=== PATIENT | female | born 1945 | race Caucasian/White ===

== ENCOUNTER 2019-09-09 10:46 | Inpatient (IN) | payer MEDICARE, MEDICAID, SELFPAY ==
[2019-09-09] VITALS (16 sets, daily range): BP systolic 80–128; BP diastolic 41–72; PULSE 66–93; RESP 13–21; TEMP 36.6–37.1; O2SAT 91–98; BMI 20.5
--- NOTE | 2019-09-09 11:29 | ED_ITS ---
Entered by Vane Purcell, acting as scribe for Gurpreet Palomino DO HPI - General Adult General: Chief complaint: General Medical Stated complaint: Low BP Time Seen by Provider: 09/09/19 11:21 Source: patient Mode of arrival: ambulatory Limitations: no limitations History of Present Illness: HPI narrative: 73 yo Female presents to ED with complaint of low blood pressure and dizziness. Pt states that she was taking medications for high blood pressure but they stopped the medication yesterday. Pt states that her boyfriend called the drug store and they told her to stop the medications. Pt denies any other complaints at this time. Pt is seen by Dr. Laith Patel in [place] for primary care. MD complaint: Low Blood Pressure Onset (ago): day(s) Radiation: non-radiation Relieving factors: none Exacerbating factors: medication and movement Associated symptoms: Deny chest pain, dyspnea, malaise, nausea, rash or vomiting Treatments prior to arrival: none Review of Systems Const: Denies: fever, chills, body aches, change in appetite, fatigue or malaise ENMT: Denies: throat pain, ear pain, nasal discharge or nasal congestion Card: Denies: chest pain, edema, shortness of breath on exertion or shortness of breath when lying down Resp: Denies: shortness of breath, productive cough or non-productive cough GI: Denies: abdominal pain, nausea, vomiting, vomiting blood, coffee grounds in vomit, diarrhea, constipation, bloating, blood in stool or black tarry stool : Denies: flank pain, difficulty urinating, painful urination, urinary frequency or urinary urgency Skin/Breast: Denies: rash or itching Neuro: Reports: dizziness PFSH ED PFSH: Surgical History (Updated 09/09/19 @ 15:48 by Carli Velazquez DO) History of 3 sections History of appendectomy History of hernia surgery Family History (Updated 09/09/19 @ 15:48 by Carli Velazquez DO) Father Stroke Social History (Updated 09/09/19 @ 15:48 by Carli Velazquez DO) Smoking and tobacco status: current every day smoker Alcohol intake: never Substance/Drug Use: never Physical Exam Const: COMMON NORMALS: no apparent distress GENERAL APPEARANCE: cooperative and comfortable ORIENTATION/CONSCIOUSNESS: Yes awake, Yes oriented to person, Yes oriented to place and Yes oriented to time HENMT: COMMON NORMALS: normocephalic, head/scalp atraumatic, hearing grossly normal bilaterally, external ears normal, EAC's normal, TM's normal bilaterally, nasal mucous membranes and turbinates normal, moist oral mucous membranes and oropharynx normal HEAD & SCALP: normocephalic and atraumatic NOSE: nasal mucous membranes and turbinates normal EXTERNAL EAR: Yes external ears normal EXTERNAL AUDITORY CANAL: EAC's normal TYMPANIC MEMBRANE: TM's normal bilaterally Eye: COMMON NORMALS: PERRL, EOMs intact bilaterally, conjunctivae normal and no scleral icterus CONJUNCTIVA: Yes conjunctivae normal PUPIL: Yes PERRL Neck/C-Spine: COMMON NORMALS: full ROM, no lymphadenopathy, supple and no JVD Lymph: LYMPHATIC: no lymphadenopathy noted and no lymphedema noted Resp: COMMON NORMALS: normal respiratory effort, no retractions, no use of accessory muscles and clear to auscultation bilaterally AUSCULTATION: clear to auscultation bilaterally Cardio: COMMON NORMALS: no JVD, regular rate, regular rhythm and no murmurs RATE: regular rate RHYTHM: regular rhythm GI: COMMON NORMALS: soft to palpation and no hepatosplenomegaly AUSCULTATION: Yes normoactive bowel sounds PALPATION: Yes soft, No tender, No guarding and Yes no hepatosplenomegaly Extremity: COMMON NORMALS: normal to inspection, normal capillary refill, no clubbing, cyanosis or edema, no calf tenderness and no pedal edema Neuro: SENSORIUM/ORIENTATION: Yes oriented to person, Yes oriented to place and Yes oriented to time Skin: COMMON NORMALS: no rashes or lesions noted GENERAL SKIN EXAM: no rashes or lesions noted Course Vital Signs: Vital signs: Vital Signs Temperature 98.4 F 09/13/19 08:00 Pulse Rate 78 09/13/19 08:18 Respiratory Rate 18 09/13/19 08:18 Blood Pressure 123/77 09/13/19 08:00 Pulse Oximetry 91 09/13/19 08:18 MDM - General Adult MDM Narrative: Medical decision making narrative: Reviewed findings with the patient. She is significantly anemic with acute renal failure and sepsis. Patient will be admitted Dr. Velazquez will be attending. Lab Data: Labs: Lab Results 03/23/20 03/23/20 03/23/20 Range/Units 11:05 11:05 11:05 WBC 26.4 H (4.0-10.0) 10^3/ uL RBC 2.73 L (4.1-5.3) 10^6/u L Hgb 8.9 L (11.5-15.3) g/dL Hct 27.9 L (37.0-47.0) % MCV 102.2 H (81-99) fL MCH 32.6 (28.0-34.0) pg MCHC 31.9 (30.0-36.0) g/dL RDW 13.5 (12.1-15.1) % Plt Count 295 (130-400) 10^3/c mm MPV 10.4 (7.4-10.4) fL Neut % (Auto) 87.2 % Lymph % (Auto) 3.0 % Shackelford % (Auto) 4.3 % Eos % (Auto) 0.1 % Baso % (Auto) 0.3 % Neut # (Auto) 23.1 H (1.8-7.7) 10^3/u L Lymph # (Auto) 0.8 (0.8-4.8) 10^3/u L Shackelford # (Auto) 1.1 H (0.2-0.9) 10^3/u L Eos # (Auto) 0.0 (0.0-0.8) 10^3/u L Baso # (Auto) 0.1 (0.0-0.1) 10^3/u L Nucleated RBC % (a uto) 0 % Nucleated RBCs # 0.0 /100WBC Sodium 126 L (136-145) mmol/L Potassium 5.4 H (3.5-5.1) mmol/L Chloride 91 L (98-107) mmol/L Carbon Dioxide 19 L (22-29) mmol/L Anion Gap 21.4 H (5-19) BUN 40 H (8-23) mg/dL Creatinine 4.2 H (0.5-0.9) mg/dL Glucose 115 (65-115) mg/dL Calculated Osmolal ity 261 L (285-295) mOsm/k g Lactate (0.5-2.2) mmol/L Calcium 8.8 (8.5-10.5) mg/dL Iron (37-145) ug/dL TIBC mcg/dl % Saturation (20-50) % Unsat Iron Binding (112-347) ug/dL Total Bilirubin 0.3 (0.15-1.2) mg/dL AST 20 (0-32) U/L ALT 11 (0-33) U/L Alkaline Phosphata se 151 H (35-105) IU/L Total Protein 7.1 (6.6-8.7) g/dL Albumin 3.5 (3.5-5.2) g/dL Globulin 3.6 (1.3-4.6) g/dL TSH (0.27-4.20) uIU/ mL Urine Color (Yellow) Urine Appearance (CLEAR) Urine pH (5-7) Ur Specific Gravit y (1.005-1.030) Urine Protein (Negative) Urine Glucose (UA) (Normal) Urine Ketones (Negative) Urine Blood (Negative) Urine Nitrate (Negative) Urine Bilirubin (NEGATIVE) Urine Urobilinogen (Negative) mg/dL Ur Leukocyte Uma ase (Negative) Urine RBC (0-2) /hpf Urine WBC (0-5) /hpf Ur Squamous Epith Cells (0-5) Urine Bacteria (NONE) Hyaline Casts Urine Mucus Digoxin 1.6 H (0.6-1.2) ng/mL Influenza Type A A g (Negative) POC Influenza B Ag (Negative) 09/09/19 09/09/19 09/09/19 Range/Units 11:05 11:06 11:55 WBC (4.0-10.0) 10^3/ uL RBC (4.1-5.3) 10^6/u L Hgb (11.5-15.3) g/dL Hct (37.0-47.0) % MCV (81-99) fL MCH (28.0-34.0) pg MCHC (30.0-36.0) g/dL RDW (12.1-15.1) % Plt Count (130-400) 10^3/c mm MPV (7.4-10.4) fL Neut % (Auto) % Lymph % (Auto) % Shackelford % (Auto) % Eos % (Auto) % Baso % (Auto) % Neut # (Auto) (1.8-7.7) 10^3/u L Lymph # (Auto) (0.8-4.8) 10^3/u L Shackelford # (Auto) (0.2-0.9) 10^3/u L Eos # (Auto) (0.0-0.8) 10^3/u L Baso # (Auto) (0.0-0.1) 10^3/u L Nucleated RBC % (a uto) % Nucleated RBCs # /100WBC Sodium (136-145) mmol/L Potassium (3.5-5.1) mmol/L Chloride (98-107) mmol/L Carbon Dioxide (22-29) mmol/L Anion Gap (5-19) BUN (8-23) mg/dL Creatinine (0.5-0.9) mg/dL Glucose (65-115) mg/dL Calculated Osmolal ity (285-295) mOsm/k g Lactate (0.5-2.2) mmol/L Calcium (8.5-10.5) mg/dL Iron 11 L (37-145) ug/dL TIBC 194 mcg/dl % Saturation 5.6 L (20-50) % Unsat Iron Binding 183 (112-347) ug/dL Total Bilirubin (0.15-1.2) mg/dL AST (0-32) U/L ALT (0-33) U/L Alkaline Phosphata se (35-105) IU/L Total Protein (6.6-8.7) g/dL Albumin (3.5-5.2) g/dL Globulin (1.3-4.6) g/dL TSH 0.68 (0.27-4.20) uIU/ mL Urine Color Yellow (Yellow) Urine Appearance Cloudy (CLEAR) Urine pH 5 (5-7) Ur Specific Gravit y 1.010 (1.005-1.030) Urine Protein 1+ H (Negative) Urine Glucose (UA) Norm (Normal) Urine Ketones Negative (Negative) Urine Blood 2+ H (Negative) Urine Nitrate Negative (Negative) Urine Bilirubin 1+ H (NEGATIVE) Urine Urobilinogen 1 H (Negative) mg/dL Ur Leukocyte Uma ase 2+ H (Negative) Urine RBC 0-4 H (0-2) /hpf Urine WBC >100 H (0-5) /hpf Ur Squamous Epith Cells 15-25 H (0-5) Urine Bacteria 2+ H (NONE) Hyaline Casts 0-4 H Urine Mucus Trace Digoxin (0.6-1.2) ng/mL Influenza Type A A g (Negative) POC Influenza B Ag (Negative) 09/09/19 09/09/19 Range/Units 13:14 13:17 WBC (4.0-10.0) 10^3/ uL RBC (4.1-5.3) 10^6/u L Hgb (11.5-15.3) g/dL Hct (37.0-47.0) % MCV (81-99) fL MCH (28.0-34.0) pg MCHC (30.0-36.0) g/dL RDW (12.1-15.1) % Plt Count (130-400) 10^3/c mm MPV (7.4-10.4) fL Neut % (Auto) % Lymph % (Auto) % Shackelford % (Auto) % Eos % (Auto) % Baso % (Auto) % Neut # (Auto) (1.8-7.7) 10^3/u L Lymph # (Auto) (0.8-4.8) 10^3/u L [place]elford # (Auto) (0.2-0.9) 10^3/u L Eos # (Auto) (0.0-0.8) 10^3/u L Baso # (Auto) (0.0-0.1) 10^3/u L Nucleated RBC % (a uto) % Nucleated RBCs # /100WBC Sodium (136-145) mmol/L Potassium (3.5-5.1) mmol/L Chloride (98-107) mmol/L Carbon Dioxide (22-29) mmol/L Anion Gap (5-19) BUN (8-23) mg/dL Creatinine (0.5-0.9) mg/dL Glucose (65-115) mg/dL Calculated Osmolal ity (285-295) mOsm/k g Lactate 1.4 (0.5-2.2) mmol/L Calcium (8.5-10.5) mg/dL Iron (37-145) ug/dL TIBC mcg/dl % Saturation (20-50) % Unsat Iron Binding (112-347) ug/dL Total Bilirubin (0.15-1.2) mg/dL AST (0-32) U/L ALT (0-33) U/L Alkaline Phosphata se (35-105) IU/L Total Protein (6.6-8.7) g/dL Albumin (3.5-5.2) g/dL Globulin (1.3-4.6) g/dL TSH (0.27-4.20) uIU/ mL Urine Color (Yellow) Urine Appearance (CLEAR) Urine pH (5-7) Ur Specific Gravit y (1.005-1.030) Urine Protein (Negative) Urine Glucose (UA) (Normal) Urine Ketones (Negative) Urine Blood (Negative) Urine Nitrate (Negative) Urine Bilirubin (NEGATIVE) Urine Urobilinogen (Negative) mg/dL Ur Leukocyte Uma ase (Negative) Urine RBC (0-2) /hpf Urine WBC (0-5) /hpf Ur Squamous Epith Cells (0-5) Urine Bacteria (NONE) Hyaline Casts Urine Mucus Digoxin (0.6-1.2) ng/mL Influenza Type A A g Negative (Negative) POC Influenza B Ag Negative (Negative) Imaging Data^: CXR: Radiologist's impression: [place] [id number] XRay Report Signed Patient: Maile López #: [id number] : 1946Acct#:[id number] Age/Sex: 73 / FADM Date: 09/09/19 [facility] Attending Dr: Ordering Provider/Ordering MD: Gurpreet Palomino DO Date of Service: 09/09/19 Procedure(s): XR chest 1V portable [id number] Accession Number(s): [id number] Report Number: [id number] WS: [id number] CHEST XRAY TECHNIQUE: Portable chest. CLINICAL INFORMATION: dyspnea/cough COMPARISON: August 03, 2013 FINDINGS: Heart: Normal cardiac silhouette. Lungs: Moderate chronic emphysematous changes. No acute pulmonary infiltrates. No focal pneumonia. Bones: Normal visualized bony structures. XR/XR chest 1V portable [id number] IMPRESSION: No acute chest findings Dictated By:Enrique Harris MD Signed By:Enrique Harrisigned Date/Time:09/09/19 1151 DD/ 1150 Discharge Plan Discharge Patient Disposition: Admitted As Inpatient Admit Provider: Carli Velazquez Clinical Impression: Cystitis, Sepsis, Acute renal failure (ARF), Anemia Condition: Stable Referrals: Laith Patel DO [Primary Care Provider] - Discharge Date/Time: 09/09/19 17:10 Coding Level of Care Code ED Stile Ripsaw Operator for Chg Fwd Exam Comprehensive The documentation recorded by the Binh thomas Carmen, accurately reflects the service I personally performed and the decisions made by Candelario johnson Curtis L, DO Sep 09, 2019 10:46
--- NOTE | 2019-09-09 11:34 | ECG_ITS ---
Measurements Intervals [place] Rate: 77 P: 60 ME: 158 QRS: 25 QRSD: 82 T: 34 QT: 371 QTc: 420 Normal sinus rhythm POSSIBLE RIGHT VENTRICULAR CONDUCTION DELAY [RSR (QR) IN V1/V2] No previous ECG available for comparison Electronically Signed On 09-09-2019 19:24:03 CDT by Adria Mcdonald M.D. [email or web address]
--- NOTE | 2019-09-09 11:34 | XR_ITS ---
WS: [id number] CHEST XRAY TECHNIQUE: Portable chest. CLINICAL INFORMATION: dyspnea/cough COMPARISON: August 03, 2013 FINDINGS: Heart: Normal cardiac silhouette. Lungs: Moderate chronic emphysematous changes. No acute pulmonary infiltrates. No focal pneumonia. Bones: Normal visualized bony structures. XR/XR chest 1V portable [id number] IMPRESSION: No acute chest findings
[2019-09-09] MEDS: sodium chloride 0.9% 1,000 ML 999 ML IV (11:43)
[2019-09-09 11:46] LABS: Basophils # 0.1 10^3/uL (0.0-0.1); Basophils % 0.3 %; Eosinophils % 0.1 %; Hematocrit 27.9 % (37.0-47.0); Hemoglobin 8.9 g/dL (11.5-15.3); Lymphocytes # 0.8 10^3/uL (0.8-4.8); Mean Corpuscular HGB Conc 31.9 g/dL (30.0-36.0); Mean Corpuscular Hemoglobin 32.6 pg (28.0-34.0); Mean Corpuscular Volume 102.2 fL (81-99); Mean Platelet Volume 10.4 fL (7.4-10.4); Monocytes # 1.1 10^3/uL (0.2-0.9); Monocytes % 4.3 %; Neutrophils # 23.1 10^3/uL (1.8-7.7); Neutrophils % 87.2 %; Nucleated Red Blood Cells % 0 %; Platelet Count 295 10^3/cmm (130-400); Red Blood Count 2.73 10^6/uL (4.1-5.3); Red Cell Distribution Width 13.5 % (12.1-15.1); White Blood Count 26.4 10^3/uL (4.0-10.0)
[2019-09-09 12:05] LABS: Alanine Aminotransferase 11 U/L (0-33); Albumin Level 3.5 g/dL (3.5-5.2); Alkaline Phosphatase 151 IU/L (35-105); Anion Gap 21.4 (5-19); Aspartate Amino Transferase 20 U/L (0-32); Blood Urea Nitrogen 40 mg/dL (8-23); Calcium 8.8 mg/dL (8.5-10.5); Carbon Dioxide 19 mmol/L (22-29); Chloride 91 mmol/L (98-107); Globulin 3.6 g/dL (1.3-4.6); Glucose 115 mg/dL (65-115); Osmolality Calculated 261 mOsm/kg (285-295); Potassium 5.4 mmol/L (3.5-5.1); Sodium 126 mmol/L (136-145); Total Bilirubin 0.3 mg/dL (0.15-1.2); Total Protein 7.1 g/dL (6.6-8.7)
[2019-09-09 12:26] LABS: Slide Review Slide Review Perform
[2019-09-09 12:44] LABS: Add Urine Microscopic? YES; Bilirubin Urine 1+ (NEGATIVE); Blood Urine 2+ (Negative); Glucose Urine UA Norm (Normal); Ketones Urine Negative (Negative); Leukocyte Esterase Urine 2+ (Negative); Nitrate Urine Negative (Negative); Protein Urine 1+ (Negative); Urine Appearance Cloudy (CLEAR); Urine Color Yellow (Yellow); Urobilinogen Urine 1 mg/dL (Negative); pH Urine 5 (5-7)
[2019-09-09 12:48] LABS: RBC Urine 0-4 /hpf (0-2); WBC Urine >100 /hpf (0-5)
[2019-09-09 12:49] LABS: Bacteria Urine 2+
[2019-09-09 12:50] LABS: Add Urine Culture? No; Hyaline Casts Urine 0-4; Mucus Urine TRACE; Squamous Epithelial Cell Urine 15-25 (0-5)
[2019-09-09] MEDS: sodium chloride 0.9% 1,000 ML 125 ML IV ×3 (12:51→23:09)
[2019-09-09] MEDS: levofloxacin-dextrose 5 % 750 MG/150 ML PREMIX 75 MG IV (13:15)
--- NOTE | 2019-09-09 13:28 | CT_ITS ---
WS: [id number] CT ABDOMEN PELVIS TECHNIQUE: Noncontrast CT of the abdomen and pelvis with coronal and sagittal reformatted images. CLINICAL INFORMATION: abd pain COMPARISON: December 03, 2018 DLP: 527.[address] scans at [facility] use at least one of these dose optimization techniques: automat ed exposure control; mA and/or kV adjustment per patient size (includes targeted exams where dose is matched to clinical indication); or iterative reconstruction. FINDINGS: Cholelithiasis. No gallbladder wall thickening or pericholecystic fluid. Adrenal glands are normal. S mall esophageal hiatal hernia. No hydronephrosis. No ureteral dilatation. Sigmoid diverticulosis. No evidence of acute diverticulitis. Bibasilar atelectasis. Fibrosis in the lung bases. No evidence of small or large bowel obstruction. Notified Gurpreet Palomino DO at 09/09/2019 2:[address]/CT abdomen pelvis wo con [id number] IMPRESSION: 1. Cholelithiasis. No gallbladder wall thickening or pericholecystic fluid. 2. No hydronephrosis. No obstructing renal or ureteral calculi. 3. Normal caliber abdominal aorta. 4. Diverticulosis. No evidence of acute diverticulitis.
[2019-09-09 13:47] LABS: Lactate (Lactic Acid level) 1.4 mmol/L (0.5-2.2)
[2019-09-09 13:51] LABS: Influenza A by IFA Negative (Negative); Influenza B by IFA Negative (Negative)
[2019-09-09 14:24] LABS: Digoxin 1.6 ng/mL (0.6-1.2)
--- NOTE | 2019-09-09 15:41 | PM.HP ---
Providers/Chief Complaint Admitting Physician: Carli Velazquez DO Primary Care Provider: Laith Patel Chief Complaint: Low BP at night History of Present Illness Maile López is a 73 year old female who presented to the emergency department today after being told she had low blood pressure. She reports that she is on some blood pressure medication but denies any history of high blood pressure. She is on digoxin and her but cannot give me any history of her cardiac health problems. She stated that she smokes about a pack a day and does have COPD but she does not wear any home oxygen. She reported that her symptoms are lightheadedness and dizziness specifically when she stands up from a seated position. This quickly resolves. She reports that she has had some intermittent abdominal pain over the past couple of days. She reports some dark stools intermittently but denies any bright red blood per rectum. Patient reports that her primary care provider is in [facility], unable to provide a past medical history. No family members at bedside. Patient was seen and evaluated in the emergency department noted to have concern for urinary tract infection and hypotension and admitted for further evaluation and treatment. Patient did have Hemoccult positive stool in the ED. Review of Systems Const: Denies: fever or chills Eyes: Denies: change in vision ENMT: Denies: nasal congestion Card: Denies: chest pain, palpitations or edema Resp: Denies: shortness of breath, productive cough or coughing up blood GI: Reports: black tarry stool; Denies: abdominal pain, nausea, vomiting, diarrhea, constipation or blood in stool : Denies: painful urination or blood in urine Musc: Denies: extremity pain or muscle cramps Skin/Breast: Denies: rash or new lesion Neuro: Reports: dizziness; Denies: headache Psych: Denies: anxiety or depression Endo: Denies: excessive urination or hot flashes Misael/Lymph: Denies: easy bruising or easy bleeding Medications/Allergies Home Medications Medication Instructions Recorded Confirmed Last Taken Type amitriptyline 25 mg PO BEDTIME 09/09/19 09/09/19 09/08/19 History clopidogrel 75 mg PO DAILY 09/09/19 09/09/19 09/09/19 History digoxin 125 mcg PO DAILY 09/09/19 09/09/19 09/09/19 History ferrous sulfate 325 mg PO BID 09/09/19 09/09/19 09/09/19 History furosemide 20 mg PO DAILY 09/09/19 09/09/19 09/09/19 History isosorbide dinitrate 2.5 mg PO BID 09/09/19 09/09/19 09/08/19 History naproxen 500 mg PO BID 09/09/19 09/09/19 09/09/19 History nitroglycerin 0.4 mg SUBLINGUAL PRN PRN 09/09/19 09/09/19 Unknown History potassium chloride 20 meq PO TID 09/09/19 09/09/19 09/09/19 History primidone 50 mg PO BID 09/09/19 09/09/19 Unknown History ranitidine HCl 150 mg PO BID 09/09/19 09/09/19 09/09/19 History simvastatin 20 mg PO DAILY 09/09/19 09/09/19 09/08/19 History tizanidine 4 mg PO Q8H PRN 09/09/19 09/09/19 09/09/19 History trazodone 50 mg PO BEDTIME 09/09/19 09/09/19 09/08/19 History Allergies Allergy/AdvReac Type Severity Reaction Status Date / Time iodine Allergy Unknown Verified 09/09/19 11:02 Penicillins Allergy ALGY-Anaphy Verified 09/09/19 11:02 laxis PFSH Acute PFSH: Surgical History (Updated 09/09/19 @ 15:48 by Carli Velazquez DO) History of 3 sections History of appendectomy History of hernia surgery Family History (Updated 09/09/19 @ 15:48 by Carli Velazquez DO) Father Stroke Social History (Updated 09/09/19 @ 15:48 by Carli Velazquez DO) Smoking and tobacco status: current every day smoker Alcohol intake: never Substance/Drug Use: never Vitals/I&O/Wt Last Vital Signs Temp 97.9 F 09/09/19 10:58 Pulse 69 09/09/19 14:50 Resp 16 09/09/19 14:50 BP 89/54 09/09/19 14:50 Pulse Ox 97 09/09/19 14:50 09/09/19 09/09/19 09/09/19 06:59 14:59 22:59 Intake Total 1000 / 1000 Balance 1000 / 1000 Weight last 48 hrs Weight 47.627 kg Physical Exam Const: COMMON NORMALS: oriented x3 and alert GENERAL APPEARANCE: cooperative ORIENTATION/CONSCIOUSNESS: Yes awake, Yes oriented to person, Yes oriented to place and Yes oriented to time HENMT: COMMON NORMALS: normocephalic and head/scalp atraumatic HEAD & SCALP: normocephalic and atraumatic Eye: COMMON NORMALS: PERRL PUPIL: Yes PERRL Neck/C-Spine: COMMON NORMALS: supple GENERAL: Yes normal visual inspection Resp: COMMON NORMALS: normal respiratory effort and clear to auscultation bilaterally EFFORT & INSPECTION: Yes able to speak in complete sentences AUSCULTATION: clear to auscultation bilaterally, no rhonchi and no wheezes Cardio: COMMON NORMALS: regular rate, regular rhythm and no murmurs RATE: regular rate RHYTHM: regular rhythm GI: COMMON NORMALS: soft to palpation and non-tender INSPECTION: No abdominal distension AUSCULTATION: Yes normoactive bowel sounds PALPATION: Yes soft Back/Pelvis: COMMON NORMALS: no CVA tenderness Extremity: COMMON NORMALS: no clubbing, cyanosis or edema and no calf tenderness Neuro: COMMON NORMALS: oriented x3, CN's II-XII intact bilaterally, moves all extremities and no focal motor deficits SENSORIUM/ORIENTATION: Yes alert, Yes oriented to person, Yes oriented to place and Yes oriented to time SPEECH: speech normal Psych: COMMON NORMALS: mental status grossly normal and cooperative Skin: COMMON NORMALS: no rashes or lesions noted GENERAL SKIN EXAM: no rashes or lesions noted Data : 09/09/19 11:05 09/09/19 11:05 Micro: Microbiology 09/09/19 13:14 Blood Culture - Preliminary Blood SPECIMEN COLLECTED 09/09/19 13:18 Blood Culture - Preliminary Blood SPECIMEN COLLECTED CT Abd/Pel: I personally reviewed and interpreted this imaging study as follows: Radiologist's impression: IMPRESSION: 1. Cholelithiasis. No gallbladder wall thickening or pericholecystic fluid. 2. No hydronephrosis. No obstructing renal or ureteral calculi. 3. Normal caliber abdominal aorta. 4. Diverticulosis. No evidence of acute diverticulitis. CXR: I personally reviewed and interpreted this imaging study as follows: Radiologist's impression: FINDINGS: Heart: Normal cardiac silhouette. Lungs: Moderate chronic emphysematous changes. No acute pulmonary infiltrates. No focal pneumonia. Bones: Normal visualized bony structures. XR/XR chest 1V portable [id number] IMPRESSION: No acute chest findings A&P Assessment and plan (1) Cystitis: Given Levaquin in the ER, will continue at this time Blood culture and urine culture ordered and pending Status: Acute Code(s): N30.90 - Cystitis, unspecified without hematuria (2) Sepsis: Leukocytosis and soft blood pressure. White blood cell count of 26,000 Continue with IV antibiotics Status: Acute Code(s): A41.9 - Sepsis, unspecified organism (3) Acute renal failure (ARF): Acute kidney injury with hyperkalemia Patient is on potassium 20 mEq 3 times a day, this is on hold Furosemide on hold Continue to hold any nephrotoxic agents CT scan of the abdomen and pelvis does not show any acute abnormalities Urinary tract infection with IV antibiotics for treatment as above Status: Acute Code(s): N17.9 - Acute kidney failure, unspecified (4) Anemia: Patient reported some dark stools, hold Plavix at this time Started on Protonix twice daily Serial H&H Patient with anemia and also increased white blood cell count, will order peripheral smear for further review Status: Acute Code(s): D64.9 - Anemia, unspecified Additional A&P Information Incidental finding of cholelithiasis: Recommend outpatient surgical follow-up Patient is on digoxin: Unable to give reason for this medication, will obtain records from outpatient setting Question of congestive heart failure: Obtaining records from outside facility, echocardiogram ordered for further evaluation Hyponatremia: Patient appears to be dehydrated, will continue with IV fluids DVT prophylaxis: SCDs, no pharmacologic prophylaxis due to concern for anemia Diet: Clear liquid CODE STATUS: Full code Attestations Medical Necessity Statement*: Requires hospitalization due to acute renal failure with hyperkalemia with acute cystitis and sepsis. Expected stay greater than 2 midnights Coding Level of Care Code Acute Musical Instrument Supervisor for Chg Fwd Diagnoses Cystitis N30.90 Sepsis A41.9 Acute renal failure (ARF) N17.9 Anemia D64.9
[2019-09-09 16:38] LABS: LAB Peripheral Smear Sent for Review
[2019-09-09] MEDS: calcium gluconate 0.1 gm/mL 10% SDV 10mL 1 GM IVP (17:50)
[2019-09-09] MEDS: pantoprazole 40 mg SDV IVP (17:52)
[2019-09-09] MEDS: ferrous sulfate EC 325 mg Tablet PO (17:52)
[2019-09-09 18:02] LABS: Thyroid Stimulating Hormone 0.68 uIU/mL (0.27-4.20)
[2019-09-09] MEDS: ondansetron 4 MG Tablet PO (18:19)
[2019-09-09 18:24] LABS: Iron 11 ug/dL (37-145); Percent Saturation 5.6 % (20-50); Total Iron Binding Capacity 194 mcg/dl; Unsaturated Iron Binding 183 ug/dL (112-347)
[2019-09-09 18:41] LABS: Hematocrit 32.7 % (37.0-47.0); Hemoglobin 9.8 g/dL (11.5-15.3)
[2019-09-09] MEDS: lactated ringers 1,000 ML 150 ML IV (19:47)
[2019-09-09] MEDS: acetaminophen 325 mg Tablet 650 MG PO (19:53)
[2019-09-09] MEDS: amitriptyline 25 mg Tablet PO (21:24)
[2019-09-09] MEDS: trazodone 50 mg Tablet PO (21:24)
--- NOTE | 2019-09-09 22:48 | PM.EVENT ---
Event Note Event Note: Called with question about patient's IV fluids. She had an order for lactated Ringer's as well as an order for normal saline. After review of the chart, both orders were placed at the exact same time by the same physician. I have discontinued the lactated Ringer's and continued change the normal saline for the time being.
[2019-09-09] MEDS: tizanidine 4 mg Tablet PO (23:26)
[2019-09-09 23:39] LABS: Hemoglobin 8.1 g/dL (11.5-15.3)
[2019-09-10] VITALS (7 sets, daily range): BP systolic 90–130; BP diastolic 53–70; PULSE 68–85; RESP 16–20; TEMP 36.6–36.9; O2SAT 86–99; BMI 20.5
[2019-09-10] MEDS: pantoprazole 40 mg SDV IVP ×2 (04:38→18:33)
[2019-09-10 05:36] LABS: Basophils % 0.1 %; Eosinophils # 0.1 10^3/uL (0.0-0.8); Eosinophils % 0.6 %; Hematocrit 24.7 % (37.0-47.0); Hemoglobin 7.9 g/dL (11.5-15.3); Lymphocytes # 0.7 10^3/uL (0.8-4.8); Lymphocytes % 4.4 %; Mean Corpuscular Hemoglobin 33.1 pg (28.0-34.0); Mean Corpuscular Volume 103.3 fL (81-99); Monocytes # 0.5 10^3/uL (0.2-0.9); Monocytes % 3.4 %; Neutrophils # 13.3 10^3/uL (1.8-7.7); Neutrophils % 89.2 %; Nucleated Red Blood Cells % 0 %; Platelet Count 199 10^3/cmm (130-400); Red Blood Count 2.39 10^6/uL (4.1-5.3); Red Cell Distribution Width 13.6 % (12.1-15.1); White Blood Count 14.9 10^3/uL (4.0-10.0)
[2019-09-10 05:56] LABS: Alanine Aminotransferase 10 U/L (0-33); Albumin Level 2.6 g/dL (3.5-5.2); Alkaline Phosphatase 146 IU/L (35-105); Anion Gap 21.5 (5-19); Aspartate Amino Transferase 19 U/L (0-32); Blood Urea Nitrogen 44 mg/dL (8-23); Calcium 8.3 mg/dL (8.5-10.5); Carbon Dioxide 14 mmol/L (22-29); Chloride 98 mmol/L (98-107); Globulin 3.3 g/dL (1.3-4.6); Glucose 78 mg/dL (65-115); Osmolality Calculated 263 mOsm/kg (285-295); Potassium 5.5 mmol/L (3.5-5.1); Sodium 128 mmol/L (136-145); Total Bilirubin 0.4 mg/dL (0.15-1.2); Total Protein 5.9 g/dL (6.6-8.7)
[2019-09-10 06:15] LABS: Slide Review Slide Review Perform
--- NOTE | 2019-09-10 07:00 | USCV_ITS ---
Maribel Maile Age: 73 Gender: F : 1945 Exam Date: 09/10/2019 14:50 Ordering Phys: Carli Velazquez DO Technologist: Earle Bradshaw Exam Location: [facility] [place] Indication: CHF BP: 121 / 69 HR: 75 Rhythm: Sinus Technical Quality: Good MEASUREMENTS (Male / Female) Normal Values 2D ECHO LV Diastolic Diameter PLAX 3.1 cm 4.2 - 5.9 / 3.9 - 5.3 cm LV Systolic Diameter PLAX 1.9 cm IVS Diastolic Thickness 1.1 cm 0.6 - 1.0 / 0.6 - 0.9 cm IVS Systolic Thickness 1.2 cm LVPW Diastolic Thickness 1.1 cm 0.6 - 1.0 / 0.6 - 0.9 cm LVPW Systolic Thickness 1.0 cm LVOT Diameter 2.0 cm LV Ejection Fraction 2D Teich 70.1 % LV Ejection Fraction MOD 2C 78.8 % LV Ejection Fraction 2C AL 79.4 % LA Diameter 3.5 cm LA Width 3.3 cm LA Height 3.9 cm RA Width 2.9 cm RA Height 4.3 cm M-MODE LV Diastolic Diameter MM 6.1 cm 4.2 - 5.9 / 3.9 - 5.3 cm LV Systolic Diameter MM 4.2 cm LV Ejection Fraction MM Teich 58.7 % IVS Diastolic Thickness MM 1.0 cm 0.6 - 1.0 / 0.6 - 0.9 cm IVS Systolic Thickness MM 1.6 cm LVPW Diastolic Thickness MM 1.0 cm 0.6 - 1.0 / 0.6 - 0.9 cm LVPW Systolic Thickness MM 1.6 cm RV Diastolic Diameter MM 1.7 cm Aortic Annulus Diameter 3.0 cm LA Ao Ratio MM 1.1 MV E Point Septal Separation 1.8 cm DOPPLER AV Peak Velocity 134.0 cm/s LVOT Peak Velocity 91.0 cm/s AV Area Cont Eq vti 2.5 cm squared AV Area Cont Eq pk 2.2 cm squared MV Area PHT 5.0 cm squared Mitral E to A Ratio 1.0 MV E' Velocity 11.0 cm/s Mitral E to MV E' Ratio 9.5 Mitral E to LV E' Lateral Ratio 8.9 Mitral E to LV E' Septal Ratio 10.2 TR Peak Velocity 304.0 cm/s TR Peak Gradient 37.0 mmHg TV Peak E Velocity 103.0 cm/s Right Atrial Pressure 3.0 mmHg Pulmonary Artery Systolic Pressu 40.0 mmHg FINDINGS Left Ventricle Normal left ventricular size and systolic function, EF 69 %. No regional wall motion abnormalities. Grade I/IV diastolic dysfunction (abnormal relaxation filling pattern), normal to mildly elevated filling pressures. Right Ventricle Mildly increased right ventricular size. Normal right ventricular systolic function. Right Atrium Mildly increased right atrial size. Left Atrium Normal left atrial size. Mitral Valve Thickened mitral valve. Mild mitral valve regurgitation. Aortic Valve Thickened aortic valve. Tricuspid Valve No gross abnormalities noted Pulmonic Valve Pulmonic valve not well visualized. Pericardium No pericardial effusion. Aorta Normal aortic annulus size. CONCLUSIONS Normal left ventricular size and systolic function, EF 69 %. No regional wall motion abnormalities. Grade I/IV diastolic dysfunction (abnormal relaxation filling pattern), normal to mildly elevated filling pressures. Mildly increased right ventricular size. Normal right ventricular systolic function. Mildly increased right atrial size. Thickened mitral valve. Mild mitral valve regurgitation. There is no pericardial effusion. There are no intracardiac masses. No previous study is available for comparison. Dr Adria Mcdonald MD FAC (Electronically Signed) Final Date: 10 September 2019 19:36 S
--- NOTE | 2019-09-10 07:52 | XR_ITS ---
WS: [id number] CHEST XRAY TECHNIQUE: Portable chest. CLINICAL INFORMATION: low oxygen, dyspnea COMPARISON: September 09, 2019 FINDINGS: Heart: Normal cardiac silhouette. Lungs: Chronic emphysematous changes. Slight hazy interstitial infiltrates in the lung bases appear n ew since yesterday. Correlation for pneumonitis. No focal consolidation. Bones: Mild thoracic curve. Osteopenia. XR/XR chest 1V portable [id number] IMPRESSION: 1. Slight hazy infiltrates in the right greater than the left lung base appear s new since yesterday. Recommend correlation for pneumonitis. No focal consolid ation. 2. Chronic emphysematous changes.
[2019-09-10] MEDS: ferrous sulfate EC 325 mg Tablet PO ×2 (08:30→18:33)
[2019-09-10] MEDS: atorvastatin 40 mg Tablet 20 MG PO (08:30)
--- NOTE | 2019-09-10 10:44 | PM.PN ---
Subjective Subjective: Interval history: Patient awake sitting up in bed at time of exam today. She reported some shortness of breath this morning which she reported as her usual shortness of breath that is now resolved, she denies any chest pain, no abdominal pain. Patient reported no further dark stools. Discussed with patient that obtained her records from her primary care provider which showed documentation of chronic kidney disease, she is unaware of this past diagnosis. Reported that she has been seen by nephrology clinic in the past but only one time and had no further follow-up. Patient reported that she was told she had a hernia, was never told anything about chronic kidney disease. On prior documentation from patient's outside provider it appears she has essential tremor, anemia, GERD, prior documentation of coronary artery disease, of which patient denies. Also noted to have chronic kidney disease and referral to nephrology was back in 2019. Vitals/I&O/Wt Last Vital Signs Temp 97.8 F 09/10/19 07:38 Pulse 71 09/10/19 08:02 Resp 20 H 09/10/19 08:02 BP 91/53 09/10/19 07:38 Pulse Ox 96 09/10/19 08:02 09/09/19 09/10/19 09/10/19 22:59 06:59 14:59 Intake Total 1747.917 / 2747.917 0 / 2747.917 1600 / 1600 Balance 1747.917 / 2747.917 0 / 2747.917 1600 / 1600 Weight last 48 hrs Weight 47.627 kg Weight 47.627 kg Physical Exam Const: COMMON NORMALS: oriented x3 and alert GENERAL APPEARANCE: cooperative ORIENTATION/CONSCIOUSNESS: Yes awake, Yes oriented to person, Yes oriented to place and Yes oriented to time HENMT: COMMON NORMALS: normocephalic and head/scalp atraumatic HEAD & SCALP: normocephalic and atraumatic Eye: COMMON NORMALS: PERRL PUPIL: Yes PERRL Neck/C-Spine: COMMON NORMALS: supple GENERAL: Yes normal visual inspection Resp: COMMON NORMALS: normal respiratory effort and clear to auscultation bilaterally EFFORT & INSPECTION: Yes able to speak in complete sentences AUSCULTATION: clear to auscultation bilaterally, no rhonchi and no wheezes Cardio: COMMON NORMALS: regular rate, regular rhythm and no murmurs RATE: regular rate RHYTHM: regular rhythm GI: COMMON NORMALS: soft to palpation and non-tender INSPECTION: No abdominal distension AUSCULTATION: Yes normoactive bowel sounds PALPATION: Yes soft : COMMON NORMALS: Yes no CVA tenderness BLADDER/KIDNEY EXAM: Yes no CVA tenderness Back/Pelvis: COMMON NORMALS: no CVA tenderness Extremity: COMMON NORMALS: no clubbing, cyanosis or edema and no calf tenderness Neuro: COMMON NORMALS: oriented x3, CN's II-XII intact bilaterally, moves all extremities and no focal motor deficits SENSORIUM/ORIENTATION: Yes alert, Yes oriented to person, Yes oriented to place and Yes oriented to time SPEECH: speech normal Psych: COMMON NORMALS: mental status grossly normal and cooperative Skin: COMMON NORMALS: no rashes or lesions noted GENERAL SKIN EXAM: no rashes or lesions noted Data : 09/10/19 05:24 09/10/19 05:24 Micro: Microbiology 09/09/19 13:18 Blood Culture - Preliminary Blood Gram Negative Rods 09/09/19 13:14 Blood Culture - Preliminary Blood Gram Negative Rods A&P Assessment and plan (1) Cystitis: Blood culture showing gram-negative rods Will broaden antibiotic coverage Status: Acute Code(s): N30.90 - Cystitis, unspecified without hematuria (2) Sepsis: Leukocytosis and soft blood pressure. White blood cell count of 26,000 Continue with IV antibiotics Status: Acute Code(s): A41.9 - Sepsis, unspecified organism (3) Acute renal failure (ARF): Acute kidney injury with hyperkalemia Patient is on potassium 20 mEq 3 times a day, this is on hold Furosemide on hold Continue to hold any nephrotoxic agents CT scan of the abdomen and pelvis does not show any acute abnormalities Urinary tract infection with IV antibiotics for treatment as above Status: Acute Code(s): N17.9 - Acute kidney failure, unspecified (4) Anemia: Patient reported some dark stools, hold Plavix at this time Started on Protonix twice daily Serial H&H Patient with anemia and also increased white blood cell count, will order peripheral smear for further review Status: Acute Code(s): D64.9 - Anemia, unspecified Additional A&P Information Incidental finding of cholelithiasis: Recommend outpatient surgical follow-up Patient is on digoxin: Unable to give reason for this medication, will obtain records from outpatient setting which showed history of CAD Question of congestive heart failure: Obtaining records from outside facility, echocardiogram pending Hyponatremia: Patient appears to be dehydrated, will continue with IV fluids Acute on chronic kidney injury: Unknown baseline creatinine, creatinine of 4.1 with a BUN of 44 and hyperkalemia. Patient has prior documentation from her primary care provider of chronic kidney disease, patient denies this history. We will continue to monitor closely. Patient's blood pressures have been low we will continue to hold off on nephrotoxic agents and hold on blood pressure medication at this time. Consider addition of Midrin and consider nephrology consultation if not improved DVT prophylaxis: SCDs, no pharmacologic prophylaxis due to concern for anemia Diet: Clear liquid CODE STATUS: Full code Attestations Medical Necessity Statement*: Patient requires further hospitalization due to bacteremia, urinary tract infection, acute on chronic kidney injury Coding Level of Care Code Acute Prevention Coordinator for Chg Fwd Diagnoses Cystitis N30.90 Sepsis A41.9 Acute renal failure (ARF) N17.9 Anemia D64.9
--- NOTE | 2019-09-10 10:50 | US_ITS ---
WS: [id number] Bilateral renal ultrasound, 09/10/2019 Clinical Data: CHRISTELLE on CKD Comparison: Renal ultrasound, 11/08/2018. Findings: The right kidney measures 9.4 cm x 4.8 cm x 4.5 cm and the left kidney is 10.4 cm x 5.4 cm x 5.2 cm. There are no cysts, masses or hydronephrosis. The renal cortical margin is normal. No renal calculi a re seen. The abdominal aorta and inferior vena cava show no vascular abnormalities. The bladder was scanned and was not remarkable. US/US renal BI* [id number] Impression: Negative bilateral renal ultrasound.
--- NOTE | 2019-09-10 11:44 | PC.CHAP ---
Pastoral Care Encounter/Spiritual Assessment Type of Contact [] Declined picker and packer visit [] Patient/Family/Request visit [] Outpatient visit [] Follow-up visit [] Physician referral [] Code/Alert [x] Routine visit [] Staff referral [] Actively dying [] Patient sleeping [] Family support [] [] Out of room [] Palliative care [] [x] Receiving care in room [] Pre-surgical visit [] Trauma [] Long length of stay [] ICU visit [] Other: Relational/Emotional Strength [x] Patient feels connected with others/family/visitors/staff [] Distress [] Loneliness/isolation [] Abandonment Spirituality of Patient [x] Person of Lizeth [] Attends Catholic of their Lizeth [x] Believes in Prayer [] Reads Bible or Congregation materials [] There are Spiritual issues to be addressed [employer] Interventions [x] Prayer [x] Active listening [x] Non-anxious presence [x] Spiritual/emotional support [] Crisis/trauma care [x] Spiritual counseling [] Bereavement support [] Provided bereavement packet [] Provided Bible/devotional materials [] Provided toy/stuffed animal, coloring book to patient or family member [] Provided Communion [] Anointing/[place] [] Salvation [x] Completed spiritual assessment [] Other: Impact on Illness or Injury [] Angry [] Fearful [] Anxious [] Often cries [] Exhaustion [] Unable to work [] Unable to attend shinto [] Unable to walk/stand [] Unable to read [] Unable to drive [] Unable to eat/drink [] Unable to sleep [] Unable to be with family [] Patient intubated [] Other: Summary Has a [place] infection, feeling better, not sure when she will to get to home, quite with a good attitude Time spent with patient 10 mins
[2019-09-10 11:54] LABS: Hematocrit 25.6 % (37.0-47.0); Hemoglobin 8.3 g/dL (11.5-15.3)
[2019-09-10] MEDS: calcium gluconate 0.1 gm/mL 10% SDV 10mL 1 GM IVP (12:08)
[2019-09-10] MEDS: dextrose 50% syringe 50 mL IVP (12:08)
[2019-09-10] MEDS: insulin regular-human 10 UNIT in SYRINGE 1 EACH IVP (12:09)
[2019-09-10] MEDS: sodium polystyrene sulfonate 15 gm/60 mL Btl PO (12:10)
[2019-09-10] MEDS: cefTRIAXone 1,000 MG in sodium chloride 0.9% (plus) 50 ML 100 MG IV (12:19)
[2019-09-10] MEDS: sodium chloride 0.9% 1,000 ML 30 ML IV (12:20)
[2019-09-10] MEDS: levofloxacin-dextrose 5 % 750 MG/150 ML PREMIX 150 MG IV (12:21)
[2019-09-10] MEDS: midodrine 5 mg TABLET PO ×2 (15:54→20:22)
[2019-09-10] MEDS: acetaminophen 325 mg Tablet 650 MG PO (18:33)
--- NOTE | 2019-09-10 19:13 | PC.NURSE ---
Introduction of staff and report received, aidet.
[2019-09-10] MEDS: trazodone 50 mg Tablet PO (20:22)
[2019-09-10] MEDS: amitriptyline 25 mg Tablet PO (20:22)
--- NOTE | 2019-09-10 20:22 | PC.NURSE ---
hs meds given at this time.
[2019-09-11] VITALS (9 sets, daily range): BP systolic 99–135; BP diastolic 57–70; PULSE 79–106; RESP 16–24; TEMP 36.4–36.9; O2SAT 90–97
[2019-09-11] MEDS: pantoprazole 40 mg SDV IVP ×2 (06:17→18:09)
[2019-09-11 06:40] LABS: Alanine Aminotransferase 11 U/L (0-33); Albumin Level 2.7 g/dL (3.5-5.2); Alkaline Phosphatase 194 IU/L (35-105); Anion Gap 22.6 (5-19); Aspartate Amino Transferase 23 U/L (0-32); Blood Urea Nitrogen 55 mg/dL (8-23); Calcium 8.3 mg/dL (8.5-10.5); Carbon Dioxide 13 mmol/L (22-29); Chloride 99 mmol/L (98-107); Globulin 2.3 g/dL (1.3-4.6); Glucose 53 mg/dL (65-115); Osmolality Calculated 266 mOsm/kg (285-295); Potassium 4.6 mmol/L (3.5-5.1); Sodium 130 mmol/L (136-145); Total Bilirubin 0.3 mg/dL (0.15-1.2)
[2019-09-11 07:40] LABS: Basophils # 0.1 10^3/uL (0.0-0.1); Basophils % 0.4 %; Eosinophils # 0.1 10^3/uL (0.0-0.8); Eosinophils % 0.3 %; Hematocrit 27.4 % (37.0-47.0); Hemoglobin 8.5 g/dL (11.5-15.3); Lymphocytes # 0.7 10^3/uL (0.8-4.8); Lymphocytes % 3.3 %; Mean Corpuscular Hemoglobin 32.6 pg (28.0-34.0); Mean Platelet Volume 10.5 fL (7.4-10.4); Monocytes # 0.9 10^3/uL (0.2-0.9); Monocytes % 4.1 %; Neutrophils # 20.3 10^3/uL (1.8-7.7); Neutrophils % 91.1 %; Nucleated Red Blood Cells % 0 %; Platelet Count 212 10^3/cmm (130-400); Red Blood Count 2.61 10^6/uL (4.1-5.3); Red Cell Distribution Width 14.2 % (12.1-15.1); White Blood Count 22.3 10^3/uL (4.0-10.0)
[2019-09-11] MEDS: atorvastatin 40 mg Tablet 20 MG PO (09:21)
[2019-09-11] MEDS: ferrous sulfate EC 325 mg Tablet PO ×2 (09:21→18:09)
[2019-09-11] MEDS: midodrine 5 mg TABLET PO (09:21)
--- NOTE | 2019-09-11 11:04 | PC.RESP ---
Patient given Pulmonary Rehab and Smoking Cessation information.
[2019-09-11] MEDS: cefTRIAXone 1,000 MG in sodium chloride 0.9% (plus) 50 ML 100 MG IV (11:21)
--- NOTE | 2019-09-11 14:06 | PM.CONSULT ---
Providers/Reason For Consult Consulting Physican/Specialty*: shaheed mcallister md Reason for Consult*: yina, hyponatremia, met acidosis. Attending Physician: Carli Velazquez DO Primary Care Provider: Laith Patel History of Present Illness History of Present Illness Maile López is a 73 year old female w/ CHF, ckd stage 3- b/l cr 1.3 in jul 2018, anxiety, hyperlipidemia, GERD, trmors. pt admitted w/ hypotension and septic shock. since dx w/ gram neg bacteremia. renal called for YINA w/ cr over 4. Review of Systems General: Reports: 10 or more systems reviewed and unremarkable except in HPI and below Narrative: weak, confused, poor appetite, lethargic, sob, abd pain, back pain, dysuria. Meds/Allergies Home Medications and Allergies Home Medications Medication Instructions Recorded Confirmed Type amitriptyline 25 mg PO BEDTIME 09/09/19 09/09/19 History clopidogrel 75 mg PO DAILY 09/09/19 09/09/19 History digoxin 125 mcg PO DAILY 09/09/19 09/09/19 History ferrous sulfate 325 mg PO BID 09/09/19 09/09/19 History furosemide 20 mg PO DAILY 09/09/19 09/09/19 History isosorbide dinitrate 2.5 mg PO BID 09/09/19 09/09/19 History naproxen 500 mg PO BID 09/09/19 09/09/19 History nitroglycerin 0.4 mg SUBLINGUAL PRN PRN 09/09/19 09/09/19 History potassium chloride 20 meq PO TID 09/09/19 09/09/19 History primidone 50 mg PO BID 09/09/19 09/09/19 History ranitidine HCl 150 mg PO BID 09/09/19 09/09/19 History simvastatin 20 mg PO DAILY 09/09/19 09/09/19 History tizanidine 4 mg PO Q8H PRN 09/09/19 09/09/19 History trazodone 50 mg PO BEDTIME 09/09/19 09/09/19 History Allergies Allergy/AdvReac Type Severity Reaction Status Date / Time iodine Allergy Unknown Verified 09/09/19 11:02 Penicillins Allergy ALGY-Anaphy Verified 09/09/19 11:02 laxis Current Medications Current Medications Generic Name Dose Route Start Last Admin Trade Name Freq PRN Reason Stop Dose Admin Acetaminophen 650 mg 09/09/19 17:25 09/10/19 18:33 Tylenol PO 650 mg Q6H PRN Administration Mild/Mod Pain Or Temp >/= 101 Amitriptyline HCl 25 mg 09/09/19 21:00 09/10/19 20:22 Elavil PO 25 mg BEDTIME DARWIN Administration Atorvastatin Calcium 20 mg 09/10/19 09:00 09/11/19 09:21 Lipitor PO 20 mg DAILY DARWIN Administration Ferrous Sulfate 325 mg 09/09/19 18:00 09/11/19 09:21 Ferrous Sulfate PO 325 mg BID DARWIN Administration Sodium Chloride 1,000 mls @ 30 mls/hr 09/10/19 11:00 09/10/19 12:20 Sodium Chloride 0.9% IV 30 mls/hr .Q24H DARWIN Administration Ceftriaxone Sodium 1,000 mg/ 50 mls @ 100 mls/hr 09/10/19 11:00 09/11/19 11:21 Sodium Chloride IV 100 mls/hr Q24H DARWIN Administration Protocol Non-Formulary Medication 2.5 mg 09/09/19 18:00 09/11/19 09:22 Isosorbide Dinitrate PO Not Given BID DARWIN Ondansetron HCl 4 mg 09/09/19 17:25 09/09/19 18:19 Zofran PO 4 mg Q8H PRN Administration NAUSEA Pantoprazole Sodium 40 mg 09/09/19 17:25 09/11/19 06:17 Protonix IVP 40 mg Q12H DARWIN Administration Tizanidine HCl 4 mg 09/09/19 15:31 09/09/19 23:26 Zanaflex PO 4 mg Q8H PRN Administration Spasms Trazodone HCl 50 mg 09/09/19 21:00 09/10/19 20:22 Desyrel PO 50 mg BEDTIME DARWIN Administration PFSH Acute PFSH: Surgical History (Updated 09/09/19 @ 15:48 by Carli Velazquez DO) History of 3 sections History of appendectomy History of hernia surgery Family History (Updated 09/09/19 @ 15:48 by Carli Velazquez DO) Father Stroke Social History (Updated 09/09/19 @ 15:48 by Carli Velazquez DO) Smoking and tobacco status: current every day smoker Alcohol intake: never Substance/Drug Use: never Vitals/I&O/Wt Last Vital Signs Temp 97.9 F 09/11/19 11:17 Pulse 94 09/11/19 11:17 Resp 18 09/11/19 11:17 BP 130/70 09/11/19 11:17 Pulse Ox 90 09/11/19 11:17 09/10/19 09/11/19 09/11/19 22:59 06:59 14:59 Intake Total 480 / 2610 120 / 2730 340 / 340 Output Total 400 / 400 Balance 480 / 2610 -280 / 2330 340 / 340 Weight last 48 hrs Weight 55.792 kg Weight 47.627 kg Physical Exam Narrative: EXAM NARRATIVE: vss, nard in bed Heent- nc/at, eomi, anicteric neck- supple, no jvp, no bruits heart reg no rub abd soft, nt, nd, +BS ext 1+ edema neuro- a,a, o x 1-2 Data Micro: Micro: Microbiology 09/10/19 11:31 Blood Culture - Pr eliminary Blood NEGATIVE TO PEGGY E 09/10/19 11:28 Blood Culture - Pr eliminary Blood NEGATIVE TO PEGGY E A&P Additional A&P Information 73 yr old female 1. gram neg ceasar bacteremia- abx as per hospitalist- dose for GFR of 15 2. mild CKD stage 3- b/l cr 1.3- likely age, 3. YINA- likely atn from hypotension and nsaid and on chf meds. -no obstruction on imaging -PT WAS ON DAILY NSAID'S FOR YEARS- CAN CAUSE MINIMAL CHANGE DISEASE - Check ck -monitor in and out and daily weights 3b/ check pth and phos 4. high MCV anemia- low iron sat -check ferritin -check b12, folate, spep, upep 5. normal echo- not sure why she was on CHF meds 6. hyponatremia- check tsh, vin -check ur na, osm, cr -she is a smoker and can have SIADH. monitor where na plateaus 7. non AGMa and inc AGMA from sepsis and renal failure -lactate okay -check abg 8. dig level was 1.6- cont to hold dig Consult Attestations Medical Necessity Statement: yina, anemia, gram neg bacteremia Time Spent in Patient Care: Greater than 35 minutes Coding Level of Care Code Acute Prior Authorization Technician for [employer]
--- NOTE | 2019-09-11 14:07 | PM.PN ---
Subjective Subjective: Interval history: Patient awake in bed at time of exam. She denies any chest pain or shortness of breath. Denies any abdominal pain. Reports no dysuria Vitals/I&O/Wt Last Vital Signs Temp 97.9 F 09/11/19 11:17 Pulse 94 09/11/19 11:17 Resp 18 09/11/19 11:17 BP 130/70 09/11/19 11:17 Pulse Ox 90 09/11/19 11:17 09/10/19 09/11/19 09/11/19 22:59 06:59 14:59 Intake Total 480 / 2610 120 / 2730 340 / 340 Output Total 400 / 400 Balance 480 / 2610 -280 / 2330 340 / 340 Weight last 48 hrs Weight 55.792 kg Weight 47.627 kg Physical Exam Const: COMMON NORMALS: oriented x3 and alert GENERAL APPEARANCE: cooperative ORIENTATION/CONSCIOUSNESS: Yes awake, Yes oriented to person, Yes oriented to place and Yes oriented to time HENMT: COMMON NORMALS: normocephalic and head/scalp atraumatic HEAD & SCALP: normocephalic and atraumatic Eye: COMMON NORMALS: PERRL PUPIL: Yes PERRL Neck/C-Spine: COMMON NORMALS: supple GENERAL: Yes normal visual inspection Resp: COMMON NORMALS: normal respiratory effort and clear to auscultation bilaterally EFFORT & INSPECTION: Yes able to speak in complete sentences AUSCULTATION: clear to auscultation bilaterally, no rhonchi and no wheezes Cardio: COMMON NORMALS: regular rate, regular rhythm and no murmurs RATE: regular rate RHYTHM: regular rhythm GI: COMMON NORMALS: soft to palpation and non-tender INSPECTION: No abdominal distension AUSCULTATION: Yes normoactive bowel sounds PALPATION: Yes soft Extremity: COMMON NORMALS: no clubbing, cyanosis or edema and no calf tenderness Neuro: COMMON NORMALS: oriented x3, CN's II-XII intact bilaterally, moves all extremities and no focal motor deficits SENSORIUM/ORIENTATION: Yes alert, Yes oriented to person, Yes oriented to place and Yes oriented to time SPEECH: speech normal Psych: COMMON NORMALS: mental status grossly normal and cooperative Skin: COMMON NORMALS: no rashes or lesions noted GENERAL SKIN EXAM: no rashes or lesions noted Data : 09/11/19 07:21 09/11/19 04:36 Micro: Microbiology 09/10/19 11:31 Blood Culture - Preliminary Blood NEGATIVE TO DATE 09/10/19 11:28 Blood Culture - Preliminary Blood NEGATIVE TO DATE A&P Assessment and plan (1) Cystitis: Transitioned to Rocephin, further culture results pending Status: Acute Code(s): N30.90 - Cystitis, unspecified without hematuria (2) Sepsis: Continue with IV antibiotics Repeat blood culture ordered Status: Acute Code(s): A41.9 - Sepsis, unspecified organism (3) Acute renal failure (ARF): Acute kidney injury with hyperkalemia Potassium improved today Nephrology consulted, appreciate recommendations and assistance in patients care Potassium, lasix, naproxen on hold Continue to hold any nephrotoxic agents Cystitis contributing and continue on IV antibiotics Status: Acute Code(s): N17.9 - Acute kidney failure, unspecified (4) Anemia: Hgb 8.5 No concern for active bleeding, holding plavix TIBC and peripheral smear Status: Acute Code(s): D64.9 - Anemia, unspecified Additional A&P Information Incidental finding of cholelithiasis: Recommend outpatient surgical follow-up. Asymptomatic at this time. Patient is on digoxin: Unable to give reason for this medication, paper records from PCP reviewed which showed GERD, CAD, CKD Diastolic congestive heart failure: previously on lasix, which is now on hold. ECHO showing LVEF 69% and Grade I/IV diastolic dysfunction Acute on chronic kidney injury: Unknown baseline creatinine, creatinine of 4.1 with a BUN of 44 and hyperkalemia. Patient has prior documentation from her primary care provider of chronic kidney disease, patient denies this history. Unknown baseline creatinine. Nephrology consulted today. Hypotension: lasix, digoxin on hold. Blood pressure improved today DVT prophylaxis: SCDs, no pharmacologic prophylaxis due to concern for anemia Diet: GI soft CODE STATUS: Full code Attestations Medical Necessity Statement*: Patient requires further hospitalization due to bacteremia, urinary tract infection, and acute on chronic kidney injury Coding Level of Care Code Acute Fourdrinier Wire Weaver for [facility] Fwd Exam Comprehensive Diagnoses Cystitis N30.90 Sepsis A41.9 Acute renal failure (ARF) N17.9 Anemia D64.9
[2019-09-11 15:21] LABS: ABG PCO2 27.5 mmHg (35-45); ABG PH Result 7.33 (7.35-7.45); Alveolar-Arterial Oxygen Gradi 76.5 mmHg (5-10); Arterial Blood Gas Hematocrit 26.1 % (37-47); Base Excess ABG -10.4 mmol/L (-2.0-2.0); Blood Gas Allen Test Pos; Blood Gas Sample Site Radial, left; Blood Gas Sample Type Arterial; HCO3 ABG 14.4 mmol/L (22-26); HGB O2 Sat 88.4 % (95-100); Ionized Calcium Level - ABG 1.1 mmol/L (1.1-1.4); Methemoglobin 0.9 % (0.4-1.5); Oxygen Device NC; Oxygen Saturation ABG 90.1; PO2 ABG 57.1 mmHg (80.0-100.0); Potassium Level - ABG 4.1 mmol/L (3.5-5.0); Total Hemoglobin 8.5 g/dL (12-16)
[2019-09-11] MEDS: sodium bicarbonate 150 MEQ in dextrose 5% 1,000 ML 100 MEQ IV (15:49)
[2019-09-11 17:01] LABS: Folate Level 2.2 ng/mL (4.8-37.3)
[2019-09-11 17:14] LABS: Bilirubin Urine Neg (NEGATIVE); Blood Urine 3+ (Negative); Glucose Urine UA Norm (Normal); Ketones Urine Negative (Negative); Leukocyte Esterase Urine 2+ (Negative); Nitrate Urine Negative (Negative); Protein Urine Trace (Negative); Specific Gravity, Urine 1.005 (1.005-1.030); Urine Appearance Clear (CLEAR); Urine Color Straw (Yellow); Urobilinogen Urine Norm (Negative); pH Urine 5 (5-7)
[2019-09-11 17:20] LABS: RBC Urine 0-4 /hpf (0-2); Squamous Epithelial Cell Urine 0-4 (0-5); WBC Urine 25-40 /hpf (0-5)
[2019-09-11 17:21] LABS: Add Urine Culture? Yes; Bacteria Urine 1+
[2019-09-11 17:30] LABS: Potassium, Radom Urine 16 mmol/L; Urine Random Chloride 23 mmol/L; Urine Random Sodium 35 mmol/L
[2019-09-11] MEDS: amitriptyline 25 mg Tablet PO (20:51)
[2019-09-11] MEDS: trazodone 50 mg Tablet PO (20:51)
[2019-09-11] MEDS: HYDROcodone-acetaminophen 5-325 mg Tablet 1 TAB PO (20:53)
[2019-09-12] VITALS (7 sets, daily range): BP systolic 103–139; BP diastolic 58–76; PULSE 60–86; RESP 16–20; TEMP 36.5–36.9; O2SAT 88–100
[2019-09-12] MEDS: sodium bicarbonate 150 MEQ in dextrose 5% 1,000 ML 100 MEQ IV (01:57)
[2019-09-12 03:41] LABS: Iron 20 ug/dL (37-145); Percent Saturation 14.5 % (20-50); Thyroid Stimulating Hormone 0.97 uIU/mL (0.27-4.20); Total Iron Binding Capacity 137 mcg/dl; Unsaturated Iron Binding 117 ug/dL (112-347); Uric Acid 8.5 mg/dL (2.4-5.7); Vitamin B12 221 pg/mL (232-1245)
[2019-09-12] MEDS: pantoprazole 40 mg SDV IVP ×2 (05:08→17:04)
[2019-09-12 05:38] LABS: Basophils % 0.1 %; Eosinophils # 0.1 10^3/uL (0.0-0.8); Hematocrit 22.4 % (37.0-47.0); Hemoglobin 7.6 g/dL (11.5-15.3); Lymphocytes # 0.8 10^3/uL (0.8-4.8); Lymphocytes % 5.9 %; Mean Corpuscular HGB Conc 33.9 g/dL (30.0-36.0); Mean Corpuscular Volume 97.4 fL (81-99); Mean Platelet Volume 10.7 fL (7.4-10.4); Monocytes # 0.5 10^3/uL (0.2-0.9); Monocytes % 3.5 %; Neutrophils # 11.9 10^3/uL (1.8-7.7); Neutrophils % 87.9 %; Nucleated Red Blood Cells % 0 %; Platelet Count 187 10^3/cmm (130-400); Red Cell Distribution Width 13.9 % (12.1-15.1); White Blood Count 13.5 10^3/uL (4.0-10.0)
[2019-09-12 05:54] LABS: Alanine Aminotransferase 9 U/L (0-33); Albumin Level 2.2 g/dL (3.5-5.2); Alkaline Phosphatase 252 IU/L (35-105); Anion Gap 17.6 (5-19); Aspartate Amino Transferase 19 U/L (0-32); Blood Urea Nitrogen 45 mg/dL (8-23); Calcium 7.9 mg/dL (8.5-10.5); Carbon Dioxide 22 mmol/L (22-29); Chloride 98 mmol/L (98-107); Globulin 2.8 g/dL (1.3-4.6); Glucose 107 mg/dL (65-115); Osmolality Calculated 276 mOsm/kg (285-295); Potassium 3.6 mmol/L (3.5-5.1); Sodium 134 mmol/L (136-145); Total Bilirubin 0.3 mg/dL (0.15-1.2)
[2019-09-12 05:55] LABS: Ferritin 484 ng/mL (15-150); Phosphorus 4.1 mg/dL (2.5-4.5)
[2019-09-12 06:27] LABS: Calcium 7.6 mg/dL (8.5-10.5); Parathyroid Hormone 183.2 pg/mL (15-65)
[2019-09-12 06:34] LABS: INR 1.18 (0.8-1.2)
[2019-09-12 07:31] LABS: PROTEIN, TOTAL 4.7 g/dL (6.1-8.1)
--- NOTE | 2019-09-12 07:55 | PM.PN ---
Subjective Subjective: Interval history: confused. feels better. not sure why she is here ir where she is. Medications: Reviewed: Yes Medication Review Details: Current Medications Acetaminophen (Tylenol) 650 mg PO Q6H PRN PRN Reason: Mild/Mod Pain Or Temp >/= 101 Last Admin: 09/10/19 18:33 Dose: 650 mg Documented by: Hydrocodone Bitart/Acetaminophen ([place] 5-325 Mg) 1 tab PO Q4H PRN PRN Reason: MODERATE TO SEVERE PAIN Last Admin: 09/11/19 20:53 Dose: 1 tab Documented by: Albuterol/Ipratropium (Duoneb) 3 ml INHALATION Q4H PRN PRN Reason: SHORTNESS OF BREATH Amitriptyline HCl (Elavil) 25 mg PO BEDTIME [facility] Last Admin: 09/11/19 20:51 Dose: 25 mg Documented by: Atorvastatin Calcium (Lipitor) 20 mg PO DAILY [facility] Last Admin: 09/11/19 09:21 Dose: 20 mg Documented by: Ferrous Sulfate (Ferrous Sulfate) 325 mg PO BID [facility] Last Admin: 09/11/19 18:09 Dose: 325 mg Documented by: Sodium Chloride (Sodium Chloride 0.9%) 1,000 mls @ 30 mls/hr IV .Q24H [facility] Last Admin: 09/11/19 19:23 Dose: Not Given Documented by: Ceftriaxone Sodium 1,000 mg/ (Sodium Chloride) 50 mls @ 100 mls/hr IV Q24H [facility]; Protocol Last Admin: 09/11/19 11:21 Dose: 100 mls/hr Documented by: Sodium Bicarbonate 150 meq/ (Dextrose) 1,150 mls @ 100 mls/hr IV .[id number] [facility] Last Admin: 09/12/19 01:57 Dose: 100 mls/hr Documented by: Naloxone HCl (Narcan) 0.1 mg IVP Q2M PRN PRN Reason: OPIATERV Nitroglycerin (Nitrostat) 0.4 mg SUBLINGUAL PRN PRN PRN Reason: Chest Pain Non-Formulary Medication (Isosorbide Dinitrate) 2.5 mg PO BID [facility] Last Admin: 09/11/19 18:09 Dose: Not Given Documented by: Ondansetron HCl (Zofran) 4 mg PO Q8H PRN PRN Reason: NAUSEA Last Admin: 09/09/19 18:19 Dose: 4 mg Documented by: Pantoprazole Sodium (Protonix) 40 mg IVP Q12H [facility] Last Admin: 09/12/19 05:08 Dose: 40 mg Documented by: Tizanidine HCl (Zanaflex) 4 mg PO Q8H PRN PRN Reason: Spasms Last Admin: 09/09/19 23:26 Dose: 4 mg Documented by: Trazodone HCl (Desyrel) 50 mg PO BEDTIME [facility] Last Admin: 09/11/19 20:51 Dose: 50 mg Documented by: Vitals/I&O/Wt Last Vital Signs Temp 97.7 F 09/12/19 07:43 Pulse 70 09/12/19 07:43 Resp 18 09/12/19 07:43 BP 105/63 09/12/19 07:43 Pulse Ox 95 09/12/19 07:43 09/11/19 09/12/19 09/12/19 22:59 06:59 14:59 Intake Total 60 / 400 1013.333 / 1413.333 Balance 60 / 400 1013.333 / 1413.333 Weight last 48 hrs Weight 59.194 kg Weight 59.194 kg Weight 55.792 kg Physical Exam Narrative: EXAM NARRATIVE: vss, nard in bed Heent- nc/at, eomi, anicteric neck- supple, no jvp, no bruits heart reg no rub abd soft, nt, nd, +BS ext no edema neuro- a,a, o x 1-2 Data : 09/12/19 04:32 09/12/19 04:32 Other Labs: Abnormal lab results 09/11/19 09/11/19 09/11/19 Range/Units 04:36 15:10 15:40 WBC (4.0-10.0) 10^3/uL RBC (4.1-5.3) 10^6/uL Hgb (11.5-15.3) g/dL Hct (37.0-47.0) % MPV (7.4-10.4) fL Neut # (Auto) (1.8-7.7) 10^3/uL PT (10.5-13.3) SECONDS ABG pH 7.33 L (7.35-7.45) ABG pCO2 27.5 L (35-45) mmHg ABG pO2 57.1 L (80.0-100.0) mmHg ABG HCO3 14.4 L (22-26) mmol/L ABG Base Excess -10.4 L (-2.0-2.0) mmol/L A-a O2 Gradient 76.5 H (5-10) mmHg Hematocrit 26.1 L (37-47) % Hgb O2 Saturation 88.4 L (95-100) % Total Hemoglobin 8.5 L (12-16) g/dL Glucose 64.0 L (70-115) mg/dL Sodium (136-145) mmol/L BUN (8-23) mg/dL Creatinine (0.5-0.9) mg/dL Calculated Osmolality (285-295) mOsm/kg Uric Acid 8.5 H (2.4-5.7) mg/dL Calcium (8.5-10.5) mg/dL Iron 20 L (37-145) ug/dL % Saturation 14.5 L (20-50) % Ferritin (15-150) ng/mL Alkaline Phosphatase (35-105) IU/L Total Protein (6.1-8.1) g/dL Albumin (3.5-5.2) g/dL Vitamin B12 221 L (232-1245) pg/mL Folate 2.2 L (4.8-37.3) ng/mL PTH Intact (15-65) pg/mL Calcium (PTH Intact) (8.5-10.5) mg/dL Urine Blood (Negative) Ur Leukocyte Esterase (Negative) Urine RBC (0-2) /hpf Urine WBC (0-5) /hpf Ur Squamous Epith Cells (0-5) Urine Bacteria (NONE) 09/11/19 09/11/19 09/12/19 Range/Units 15:40 16:40 04:32 WBC 13.5 H (4.0-10.0) 10^3/uL RBC 2.30 L (4.1-5.3) 10^6/uL Hgb 7.6 L (11.5-15.3) g/dL Hct 22.4 L (37.0-47.0) % MPV 10.7 H (7.4-10.4) fL Neut # (Auto) 11.9 H (1.8-7.7) 10^3/uL PT (10.5-13.3) SECONDS ABG pH (7.35-7.45) ABG pCO2 (35-45) mmHg ABG pO2 (80.0-100.0) mmHg ABG HCO3 (22-26) mmol/L ABG Base Excess (-2.0-2.0) mmol/L A-a O2 Gradient (5-10) mmHg Hematocrit (37-47) % Hgb O2 Saturation (95-100) % Total Hemoglobin (12-16) g/dL Glucose (70-115) mg/dL Sodium (136-145) mmol/L BUN (8-23) mg/dL Creatinine (0.5-0.9) mg/dL Calculated Osmolality (285-295) mOsm/kg Uric Acid (2.4-5.7) mg/dL Calcium (8.5-10.5) mg/dL Iron (37-145) ug/dL % Saturation (20-50) % Ferritin (15-150) ng/mL Alkaline Phosphatase (35-105) IU/L Total Protein 4.7 L (6.1-8.1) g/dL Albumin (3.5-5.2) g/dL Vitamin B12 (232-1245) pg/mL Folate (4.8-37.3) ng/mL PTH Intact (15-65) pg/mL Calcium (PTH Intact) (8.5-10.5) mg/dL Urine Blood 3+ H (Negative) Ur Leukocyte Esterase 2+ H (Negative) Urine RBC 0-4 H (0-2) /hpf Urine WBC 25-40 H (0-5) /hpf Ur Squamous Epith Cells 0-4 H (0-5) Urine Bacteria 1+ H (NONE) 09/12/19 09/12/19 09/12/19 Range/Units 04:32 04:32 04:32 WBC (4.0-10.0) 10^3/uL RBC (4.1-5.3) 10^6/uL Hgb (11.5-15.3) g/dL Hct (37.0-47.0) % MPV (7.4-10.4) fL Neut # (Auto) (1.8-7.7) 10^3/uL PT 15.10 H (10.5-13.3) SECONDS ABG pH (7.35-7.45) ABG pCO2 (35-45) mmHg ABG pO2 (80.0-100.0) mmHg ABG HCO3 (22-26) mmol/L ABG Base Excess (-2.0-2.0) mmol/L A-a O2 Gradient (5-10) mmHg Hematocrit (37-47) % Hgb O2 Saturation (95-100) % Total Hemoglobin (12-16) g/dL Glucose (70-115) mg/dL Sodium 134 L (136-145) mmol/L BUN 45 H (8-23) mg/dL Creatinine 4.8 H (0.5-0.9) mg/dL Calculated Osmolality 276 L (285-295) mOsm/kg Uric Acid (2.4-5.7) mg/dL Calcium 7.9 L (8.5-10.5) mg/dL Iron (37-145) ug/dL % Saturation (20-50) % Ferritin (15-150) ng/mL Alkaline Phosphatase 252 H (35-105) IU/L Total Protein 5.0 L (6.1-8.1) g/dL Albumin 2.2 L (3.5-5.2) g/dL Vitamin B12 (232-1245) pg/mL Folate (4.8-37.3) ng/mL PTH Intact 183.2 H (15-65) pg/mL Calcium (PTH Intact) 7.6 L (8.5-10.5) mg/dL Urine Blood (Negative) Ur Leukocyte Esterase (Negative) Urine RBC (0-2) /hpf Urine WBC (0-5) /hpf Ur Squamous Epith Cells (0-5) Urine Bacteria (NONE) 09/11/20 Range/Units 04:32 WBC (4.0-10.0) 10^3/uL RBC (4.1-5.3) 10^6/uL Hgb (11.5-15.3) g/dL Hct (37.0-47.0) % MPV (7.4-10.4) fL Neut # (Auto) (1.8-7.7) 10^3/uL PT (10.5-13.3) SECONDS ABG pH (7.35-7.45) ABG pCO2 (35-45) mmHg ABG pO2 (80.0-100.0) mmHg ABG HCO3 (22-26) mmol/L ABG Base Excess (-2.0-2.0) mmol/L A-a O2 Gradient (5-10) mmHg Hematocrit (37-47) % Hgb O2 Saturation (95-100) % Total Hemoglobin (12-16) g/dL Glucose (70-115) mg/dL Sodium (136-145) mmol/L BUN (8-23) mg/dL Creatinine (0.5-0.9) mg/dL Calculated Osmolality (285-295) mOsm/kg Uric Acid (2.4-5.7) mg/dL Calcium (8.5-10.5) mg/dL Iron (37-145) ug/dL % Saturation (20-50) % Ferritin 484 H (15-150) ng/mL Alkaline Phosphatase (35-105) IU/L Total Protein (6.1-8.1) g/dL Albumin (3.5-5.2) g/dL Vitamin B12 (232-1245) pg/mL Folate (4.8-37.3) ng/mL PTH Intact (15-65) pg/mL Calcium (PTH Intact) (8.5-10.5) mg/dL Urine Blood (Negative) Ur Leukocyte Esterase (Negative) Urine RBC (0-2) /hpf Urine WBC (0-5) /hpf Ur Squamous Epith Cells (0-5) Urine Bacteria (NONE) Micro: Microbiology 09/10/19 11:31 Blood Culture - Preliminary Blood NEGATIVE TO DATE 09/10/19 11:28 Blood Culture - Preliminary Blood NEGATIVE TO DATE A&P Additional A&P Information 73 yr old female 1. gram neg ceasar bacteremia- abx as per hospitalist- dose for GFR of 15 2. mild CKD stage 3- b/l cr 1.3- likely age related and from meds 3. CHRISTELLE- likely atn from hypotension and nsaid and on chf meds. -no obstruction on imaging -PT WAS ON DAILY NSAID'S FOR YEARS- CAN CAUSE MINIMAL CHANGE DISEASE - Check ck -monitor in and out and daily weights - i am concerned that her renal failure is at least subacute- when infection improves, would consider a renal biopsy. however, have to weigh the risk of transferring to a large hospital during the COVID-19 pandemic 4. bone- mineral metabolism of CKD pth 182- repeat in 4 weeks, may need a vit d analouge check vit d level -normal phos 5. high MCV anemia- low iron sat -normal ferritin -low b12, folate- replete -await spep, upep -also give epo 5. normal echo- not sure why she was on CHF meds 6. hyponatremia- cortisol pending -serum na improving low to normal tsh -check ur na, osm, cr -she is a smoker and can have SIADH. monitor where na plateaus 7. non AGMa and inc AGMA from sepsis and renal failure -improving on bicarb drip 8. dig level was 1.6- cont to hold dig Attestations Medical Necessity Statement*: christelle, anemia Time Spent in Patient Care: Greater than 35 minutes Coding Level of Care Code Acute Facing Slitter for Justus Greenwood
[2019-09-12] MEDS: folic acid 1 mg Tablet PO ×2 (09:06→17:04)
[2019-09-12] MEDS: atorvastatin 40 mg Tablet 20 MG PO (09:06)
[2019-09-12] MEDS: ferrous sulfate EC 325 mg Tablet PO ×2 (09:07→17:04)
[2019-09-12] MEDS: cyanocobalamin 1,000 mcg/mL SDV 1000 MCG IM (09:09)
[2019-09-12 09:19] LABS: Creatine Phosphokinase 28 U/L (26-192); Uric Acid 8.9 mg/dL (2.4-5.7)
[2019-09-12] MEDS: epoetin alfa 10,000 unit/mL INJ 10000 UNIT SUBCUT (09:25)
[2019-09-12] MEDS: cefTRIAXone 1,000 MG in sodium chloride 0.9% (plus) 50 ML 100 MG IV (11:44)
[2019-09-12 12:01] LABS: Anti-Double Strand DNA AB <1 IU/mL
[2019-09-12 12:31] LABS: Creatinine, Random Urine 36 mg/dL (20-275); Protein, Total, Random 75 mg/dL (5-24); Protein/Creatinine Ratio 2.083 (0.021-0.161); Protein/Creatinine Ratio 2083 mg/g creat (21-161)
[2019-09-12 12:56] LABS: Anti-Nuclear Antibody Screen NEGATIVE (NEGATIVE)
--- NOTE | 2019-09-12 13:06 | DCPLANNER ---
Pg 2 of IM updated and reviewed with pt - no questions, copy provided.
--- NOTE | 2019-09-12 15:35 | P.PN_ITS ---
Subjective Subjective: Interval history: Patient awake in bed at time of exam this morning. She recalled that she spoke with her this morning, her stated that he had discussed with me. She was alert and oriented to person, place and time. Patient denied any chest pain, no abdominal pain Medications: Reviewed: Yes Medication Review Details: Current Medications Acetaminophen (Tylenol) 650 mg PO Q6H PRN PRN Reason: Mild/Mod Pain Or Temp >/= 101 Last Admin: 09/10/19 18:33 Dose: 650 mg Documented by: Hydrocodone Bitart/Acetaminophen ([place] 5-325 Mg) 1 tab PO Q4H PRN PRN Reason: MODERATE TO SEVERE PAIN Last Admin: 09/11/19 20:53 Dose: 1 tab Documented by: Albuterol/Ipratropium (Duoneb) 3 ml INHALATION Q4H PRN PRN Reason: SHORTNESS OF BREATH Amitriptyline HCl (Elavil) 25 mg PO BEDTIME [facility] Last Admin: 09/11/19 20:51 Dose: 25 mg Documented by: Atorvastatin Calcium (Lipitor) 20 mg PO DAILY [facility] Last Admin: 09/11/19 09:21 Dose: 20 mg Documented by: Ferrous Sulfate (Ferrous Sulfate) 325 mg PO BID [facility] Last Admin: 09/11/19 18:09 Dose: 325 mg Documented by: Sodium Chloride (Sodium Chloride 0.9%) 1,000 mls @ 30 mls/hr IV .Q24H [facility] Last Admin: 09/11/19 19:23 Dose: Not Given Documented by: Ceftriaxone Sodium 1,000 mg/ (Sodium Chloride) 50 mls @ 100 mls/hr IV Q24H [facility]; Protocol Last Admin: 09/11/19 11:21 Dose: 100 mls/hr Documented by: Sodium Bicarbonate 150 meq/ (Dextrose) 1,150 mls @ 100 mls/hr IV .[id number] [facility] Last Admin: 09/12/19 01:57 Dose: 100 mls/hr Documented by: Naloxone HCl (Narcan) 0.1 mg IVP Q2M PRN PRN Reason: OPIATERV Nitroglycerin (Nitrostat) 0.4 mg SUBLINGUAL PRN PRN PRN Reason: Chest Pain Non-Formulary Medication (Isosorbide Dinitrate) 2.5 mg PO BID [facility] Last Admin: 09/11/19 18:09 Dose: Not Given Documented by: Ondansetron HCl (Zofran) 4 mg PO Q8H PRN PRN Reason: NAUSEA Last Admin: 09/09/19 18:19 Dose: 4 mg Documented by: Pantoprazole Sodium (Protonix) 40 mg IVP Q12H [facility] Last Admin: 09/12/19 05:08 Dose: 40 mg Documented by: Tizanidine HCl (Zanaflex) 4 mg PO Q8H PRN PRN Reason: Spasms Last Admin: 09/09/19 23:26 Dose: 4 mg Documented by: Trazodone HCl (Desyrel) 50 mg PO BEDTIME [facility] Last Admin: 09/11/19 20:51 Dose: 50 mg Documented by: Vitals/I&O/Wt Last Vital Signs Temp 98.3 F 09/12/19 11:59 Pulse 77 09/12/19 11:59 Resp 18 09/12/19 11:59 BP 117/67 09/12/19 11:59 Pulse Ox 94 09/12/19 11:59 09/12/19 09/12/19 09/12/19 06:59 14:59 22:59 Intake Total 1013.333 / 1463.333 240 / 240 Balance 1013.333 / 1463.333 240 / 240 Weight last 48 hrs Weight 59.194 kg Weight 59.194 kg Weight 55.792 kg Physical Exam Const: COMMON NORMALS: oriented x3 and alert GENERAL APPEARANCE: cooperative ORIENTATION/CONSCIOUSNESS: Yes awake, Yes oriented to person, Yes oriented to place and Yes oriented to time HENMT: COMMON NORMALS: normocephalic and head/scalp atraumatic HEAD & SCALP: normocephalic and atraumatic Eye: COMMON NORMALS: PERRL PUPIL: Yes PERRL Neck/C-Spine: COMMON NORMALS: supple GENERAL: Yes normal visual inspection Resp: COMMON NORMALS: normal respiratory effort and clear to auscultation bilaterally EFFORT & INSPECTION: Yes able to speak in complete sentences AUSCULTATION: clear to auscultation bilaterally, no rhonchi and no wheezes Cardio: COMMON NORMALS: regular rate, regular rhythm and no murmurs RATE: regular rate RHYTHM: regular rhythm GI: COMMON NORMALS: soft to palpation INSPECTION: No abdominal distension AUSCULTATION: Yes normoactive bowel sounds PALPATION: Yes soft OTHER: Very mild suprapubic tenderness, no guarding or rigidity : COMMON NORMALS: Yes no CVA tenderness BLADDER/KIDNEY EXAM: Yes no CVA tenderness Back/Pelvis: COMMON NORMALS: no CVA tenderness Extremity: COMMON NORMALS: no clubbing, cyanosis or edema and no calf tenderness Neuro: COMMON NORMALS: oriented x3, CN's II-XII intact bilaterally, moves all extremities and no focal motor deficits SENSORIUM/ORIENTATION: Yes alert, Yes oriented to person, Yes oriented to place and Yes oriented to time SPEECH: speech normal Psych: COMMON NORMALS: mental status grossly normal and cooperative Skin: COMMON NORMALS: no rashes or lesions noted GENERAL SKIN EXAM: no rashes or lesions noted Data : 09/12/19 04:32 09/12/19 04:32 Micro: Microbiology 09/09/19 13:14 Blood Culture - Preliminary Blood Escherichia coli 09/10/19 11:31 Blood Culture - Preliminary Blood NEGATIVE TO DATE 09/10/19 11:28 Blood Culture - Preliminary Blood NEGATIVE TO DATE A&P Assessment and plan (1) Cystitis: Culture showing E. coli Sensitive to Rocephin, will continue Status: Acute Code(s): N30.90 - Cystitis, unspecified without hematuria (2) Sepsis: Continue with IV Rocephin Repeat blood culture showing no growth today Patient remains afebrile Status: Acute Code(s): A41.9 - Sepsis, unspecified organism (3) Acute renal failure (ARF): Acute kidney injury on chronic kidney disease Multifactorial, sepsis, cystitis, daily NSAID use, digoxin, chronic diuretics Nephrology consulted, appreciate recommendations and assistance in patients intermediate Potassium, lasix, naproxen on hold Status: Acute Code(s): N17.9 - Acute kidney failure, unspecified (4) Anemia: Hgb 7.6 today Holding Plavix Peripheral smear consistent with renal disease and macrocytosis as well as concern for B12 and folate deficiency Continue on folate and B12 SPEP and UPEP ordered and pending Status: Acute Code(s): D64.9 - Anemia, unspecified Additional A&P Information Incidental finding of cholelithiasis: Recommend outpatient surgical follow-up. Asymptomatic at this time. Patient is on digoxin: Unable to give reason for this medication, holding at this time. Elevated level on admission at 1.6. paper records from PCP reviewed which showed GERD, CAD, CKD Diastolic congestive heart failure: previously on lasix, which is now on hold. ECHO showing LVEF 69% and Grade I/IV diastolic dysfunction Acute on chronic kidney injury: Unknown baseline creatinine, creatinine of 4.1 with a BUN of 44 and hyperkalemia. Patient has prior documentation from her [facility] provider of chronic kidney disease, patient denies this history. Unknown baseline creatinine. Nephrology consulted today. 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
--- NOTE | 2019-09-12 15:37 | XR_ITS ---
WS: [id number] CHEST 2 VIEWS HISTORY: hypoxia COMPARISON: 09/10/2019 Lungs: Changes of chronic emphysema. Pulmonary vasculature is more prominent suggesting mild pulmonar y congestion and fluid overload. Small bilateral pleural effusions. No pneumonia. Cardiac size: Normal. Mediastinum/Aorta: Normal mediastinum. Bones: Diffuse osteopenia. XR/XR chest 2V* [id number] IMPRESSION: 1. Small bilateral pleural effusions. 2. Mild pulmonary venous congestion is new. 3. Chronic emphysema.
[2019-09-12 15:41] LABS: ALBUMIN 2.2 g/dL (3.8-4.8); ALPHA 1 GLOBULIN 0.6 g/dL (0.2-0.3); ALPHA 2 GLOBULIN 0.8 g/dL (0.5-0.9); BETA 1 GLOBULIN 0.3 g/dL (0.4-0.6); BETA 2 GLOBULIN 0.3 g/dL (0.2-0.5); GAMMA GLOBULIN 0.5 g/dL (0.8-1.7)
[2019-09-12 16:06] LABS: Albumin,Urine Random 34 %; Alpha-1-Globulins Urine Random 9 %; Alpha-2-Globulins Urine Random 20 %; Beta-Globulin,Urine Random 20 %; Gamma Globulin,Urine Random 16 %
[2019-09-12] MEDS: ondansetron 4 MG Tablet PO (17:04)
[2019-09-12] MEDS: FUROsemide 10 mg/mL SDV 2mL 20 MG IVP (18:37)
[2019-09-12] MEDS: sodium chloride 0.9% 1,000 ML 30 ML IV (19:23)
[2019-09-12] MEDS: amitriptyline 25 mg Tablet PO (21:58)
[2019-09-12] MEDS: trazodone 50 mg Tablet PO (21:58)
[2019-09-13] VITALS (7 sets, daily range): BP systolic 108–137; BP diastolic 67–77; PULSE 68–86; RESP 15–20; TEMP 36.9–37.2; O2SAT 90–94
[2019-09-13] MEDS: pantoprazole 40 mg SDV IVP ×2 (05:05→18:10)
[2019-09-13] MEDS: sodium chloride 0.9% 1,000 ML 30 ML IV (05:08)
[2019-09-13 06:33] LABS: Alanine Aminotransferase 10 U/L (0-33); Albumin Level 2.2 g/dL (3.5-5.2); Alkaline Phosphatase 345 IU/L (35-105); Anion Gap 16.5 (5-19); Aspartate Amino Transferase 29 U/L (0-32); Blood Urea Nitrogen 44 mg/dL (8-23); Calcium 8.2 mg/dL (8.5-10.5); Carbon Dioxide 25 mmol/L (22-29); Chloride 99 mmol/L (98-107); Globulin 3.2 g/dL (1.3-4.6); Glucose 77 mg/dL (65-115); Magnesium 1.9 mg/dL (1.7-2.3); Osmolality Calculated 281 mOsm/kg (285-295); Phosphorus 4.3 mg/dL (2.5-4.5); Potassium 3.5 mmol/L (3.5-5.1); Sodium 137 mmol/L (136-145); Total Bilirubin 0.4 mg/dL (0.15-1.2); Total Protein 5.4 g/dL (6.6-8.7)
[2019-09-13] MEDS: folic acid 1 mg Tablet PO ×2 (08:53→18:25)
[2019-09-13] MEDS: atorvastatin 40 mg Tablet 20 MG PO (08:53)
[2019-09-13] MEDS: ferrous sulfate EC 325 mg Tablet PO ×2 (08:54→18:25)
[2019-09-13 09:31] LABS: Basophils % 0.2 %; Eosinophils # 0.1 10^3/uL (0.0-0.8); Eosinophils % 0.9 %; Hemoglobin 7.7 g/dL (11.5-15.3); Lymphocytes # 1.1 10^3/uL (0.8-4.8); Lymphocytes % 6.5 %; Mean Corpuscular HGB Conc 33.5 g/dL (30.0-36.0); Mean Corpuscular Volume 98.7 fL (81-99); Mean Platelet Volume 10.8 fL (7.4-10.4); Monocytes # 0.9 10^3/uL (0.2-0.9); Monocytes % 5.2 %; Neutrophils # 14.1 10^3/uL (1.8-7.7); Neutrophils % 85.7 %; Nucleated Red Blood Cells % 0 %; Platelet Count 180 10^3/cmm (130-400); Red Blood Count 2.33 10^6/uL (4.1-5.3); Red Cell Distribution Width 14.2 % (12.1-15.1); White Blood Count 16.4 10^3/uL (4.0-10.0)
--- NOTE | 2019-09-13 10:04 | P.PN_ITS ---
Subjective Subjective: Interval history: Feels a little better today although she is still pretty drowsy. No edema and no other vol Sx, inc breathing is currently comfortable. No uremic Sx. UO volumes not being recorded. Medications: Reviewed: Yes Medication Review Details: Current Medications Acetaminophen (Tylenol) 650 mg PO Q6H PRN PRN Reason: Mild/Mod Pain Or Temp >/= 101 Last Admin: 09/10/19 18:33 Dose: 650 mg Documented by: Hydrocodone Bitart/Acetaminophen ([place] 5-325 Mg) 1 tab PO Q4H PRN PRN Reason: MODERATE TO SEVERE PAIN Last Admin: 09/11/19 20:53 Dose: 1 tab Documented by: Albuterol/Ipratropium (Duoneb) 3 ml INHALATION Q4H PRN PRN Reason: SHORTNESS OF BREATH Amitriptyline HCl (Elavil) 25 mg PO BEDTIME [facility] Last Admin: 09/11/19 20:51 Dose: 25 mg Documented by: Atorvastatin Calcium (Lipitor) 20 mg PO DAILY [facility] Last Admin: 09/11/19 09:21 Dose: 20 mg Documented by: Ferrous Sulfate (Ferrous Sulfate) 325 mg PO BID [facility] Last Admin: 09/11/19 18:09 Dose: 325 mg Documented by: Sodium Chloride (Sodium Chloride 0.9%) 1,000 mls @ 30 mls/hr IV .Q24H [facility] Last Admin: 09/11/19 19:23 Dose: Not Given Documented by: Ceftriaxone Sodium 1,000 mg/ (Sodium Chloride) 50 mls @ 100 mls/hr IV Q24H [facility]; Protocol Last Admin: 09/11/19 11:21 Dose: 100 mls/hr Documented by: Sodium Bicarbonate 150 meq/ (Dextrose) 1,150 mls @ 100 mls/hr IV .[id number] [facility] Last Admin: 09/12/19 01:57 Dose: 100 mls/hr Documented by: Naloxone HCl (Narcan) 0.1 mg IVP Q2M PRN PRN Reason: OPIATERV Nitroglycerin (Nitrostat) 0.4 mg SUBLINGUAL PRN PRN PRN Reason: Chest Pain Non-Formulary Medication (Isosorbide Dinitrate) 2.5 mg PO BID [facility] Last Admin: 09/11/19 18:09 Dose: Not Given Documented by: Ondansetron HCl (Zofran) 4 mg PO Q8H PRN PRN Reason: NAUSEA Last Admin: 09/09/19 18:19 Dose: 4 mg Documented by: Pantoprazole Sodium (Protonix) 40 mg IVP Q12H [facility] Last Admin: 09/12/19 05:08 Dose: 40 mg Documented by: Tizanidine HCl (Zanaflex) 4 mg PO Q8H PRN PRN Reason: Spasms Last Admin: 09/09/19 23:26 Dose: 4 mg Documented by: Trazodone HCl (Desyrel) 50 mg PO BEDTIME [facility] Last Admin: 09/11/19 20:51 Dose: 50 mg Documented by: Vitals/I&O/Wt Last Vital Signs Temp 98.4 F 09/13/19 08:00 Pulse 78 09/13/19 08:18 Resp 18 09/13/19 08:18 BP 123/77 09/13/19 08:00 Pulse Ox 91 09/13/19 08:18 09/12/19 09/13/19 09/13/19 22:59 06:59 14:59 Intake Total 1450 / 1979 292.5 / 2272.5 240 / 240 Output Total 1019 / 2019 650 / 2670 Balance 430 / -40 -357.5 / -397.5 240 / 240 Weight last 48 hrs Weight 60.146 kg Weight 73.618 kg Weight 59.194 kg Weight 59.194 kg Data : 09/13/19 05:33 09/13/19 05:33 Micro: Microbiology 09/09/19 13:14 Blood Culture - Preliminary Blood Escherichia coli A&P Additional A&P Information 1. CHRISTELLE - creatinine now coming down; likely multifactorial CHRISTELLE inc infection (both pro and anti-inflammatory cytokines cause a reversible ATN like picture), in the setting of hypotension, IVVD and NSAIDs - renal function now recovering - DC ivf given CXR findings pulm congestion in the setting of emphysema - am labs - no indication for dialysis 2. GNR bacteremia - on iv Rocephin 3. Hemodynamics remain stable 4. Anemia - Hb remains stable - iron levels low although she has macrocytic anemia - folate and ferrous sulfate on board 5. 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
[2019-09-13] MEDS: cefTRIAXone 1,000 MG in sodium chloride 0.9% (plus) 50 ML 100 MG IV (10:29)
--- NOTE | 2019-09-13 13:25 | PM.PN ---
Subjective Subjective: Interval history: At time of exam today. She denied any chest pain, no shortness of breath or cough. She reports that her abdominal pain is improving. Medications: Reviewed: Yes Vitals/I&O/Wt Last Vital Signs Temp 98.8 F 09/13/19 11:22 Pulse 77 09/13/19 11:22 Resp 20 H 09/13/19 11:22 BP 109/67 09/13/19 11:22 Pulse Ox 90 09/13/19 11:22 09/12/19 09/13/19 09/13/19 22:59 06:59 14:59 Intake Total 1449 292.5 / 2272.5 360 / 360 Output Total 1019 650 / 2670 Balance 430 / -40 -357.5 / -397.5 360 / 360 Weight last 48 hrs Weight 60.146 kg Weight 73.618 kg Weight 59.194 kg Weight 59.194 kg Physical Exam Const: COMMON NORMALS: oriented x3 and alert GENERAL APPEARANCE: cooperative ORIENTATION/CONSCIOUSNESS: Yes awake, Yes oriented to person, Yes oriented to place and Yes oriented to time HENMT: COMMON NORMALS: normocephalic and head/scalp atraumatic HEAD & SCALP: normocephalic and atraumatic Eye: COMMON NORMALS: PERRL PUPIL: Yes PERRL Neck/C-Spine: COMMON NORMALS: supple GENERAL: Yes normal visual inspection Resp: COMMON NORMALS: normal respiratory effort and clear to auscultation bilaterally EFFORT & INSPECTION: Yes able to speak in complete sentences AUSCULTATION: clear to auscultation bilaterally, no rhonchi and no wheezes OTHER: Faint crackles bilaterally Cardio: COMMON NORMALS: regular rate, regular rhythm and no murmurs RATE: regular rate RHYTHM: regular rhythm GI: COMMON NORMALS: soft to palpation INSPECTION: No abdominal distension AUSCULTATION: Yes normoactive bowel sounds PALPATION: Yes soft OTHER: Abdomen is soft and nontender today : COMMON NORMALS: Yes no CVA tenderness BLADDER/KIDNEY EXAM: Yes no CVA tenderness Back/Pelvis: COMMON NORMALS: no CVA tenderness Extremity: COMMON NORMALS: no clubbing, cyanosis or edema and no calf tenderness Neuro: COMMON NORMALS: oriented x3, CN's II-XII intact bilaterally, moves all extremities and no focal motor deficits SENSORIUM/ORIENTATION: Yes alert, Yes oriented to person, Yes oriented to place and Yes oriented to time SPEECH: speech normal Psych: COMMON NORMALS: mental status grossly normal and cooperative Skin: COMMON NORMALS: no rashes or lesions noted GENERAL SKIN EXAM: no rashes or lesions noted Data : 09/13/19 05:33 09/13/19 05:33 Micro: Microbiology 09/11/19 16:40 Urine Culture - Preliminary Urine,Clean Catch 09/09/19 13:14 Blood Culture - Preliminary Blood Escherichia coli A&P Assessment and plan (1) Cystitis: Culture showing E. coli Sensitive to Rocephin, will continue Status: Acute Code(s): N30.90 - Cystitis, unspecified without hematuria (2) Sepsis: Improved continue with IV Rocephin Repeat blood culture showing no growth today Status: Acute Code(s): A41.9 - Sepsis, unspecified organism (3) Acute renal failure (ARF): Acute kidney injury on chronic kidney disease Multifactorial, sepsis, cystitis, daily NSAID use, digoxin, chronic diuretics Nephrology consulted, appreciate recommendations and assistance in patients jail Potassium, lasix, naproxen on hold Status: Acute Code(s): N17.9 - Acute kidney failure, unspecified (4) Anemia: Hgb 7.7 today Holding Plavix Peripheral smear consistent with renal disease and macrocytosis as well as concern for B12 and folate deficiency Continue on folate and B12 SPEP and UPEP ordered and pending Status: Acute Code(s): D64.9 - Anemia, unspecified Additional A&P Information Incidental finding of cholelithiasis: Recommend outpatient surgical follow-up. Remains asymptomatic Patient is on digoxin: Unable to give reason for this medication, holding at this time. Elevated level on admission at 1.6. paper records from PCP reviewed which showed GERD, CAD, CKD Diastolic congestive heart failure: With fluid overload on imaging and hypoxemia. Additional IV Lasix today, strict intake and output as well as daily weights Acute on chronic kidney injury: Unknown baseline creatinine, creatinine of 4.0 with a BUN of 44 and hyperkalemia. Hyperkalemia resolved. Renal function and acidosis continues to slowly improve. We will continue with IV dose of Lasix today due to concern for CHF exacerbation as above. Hypotension: Improved COPD: Oxygen per protocol, respiratory therapy to assess and treat Hypoxemia: With concern for diastolic CHF exacerbation, IV Lasix today DVT prophylaxis: SCDs, no pharmacologic prophylaxis due to concern for anemia Diet: GI soft CODE STATUS: Full code Attestations Medical Necessity Statement*: Patient requires further hospitalization due to acute renal failure with sepsis Coding Level of Care Code Acute Key Account Director for Chg Fwd Diagnoses Cystitis N30.90 Sepsis A41.9 Acute renal failure (ARF) N17.9 Anemia D64.9
[2019-09-13] MEDS: FUROsemide 10 mg/mL SDV 2mL 20 MG IVP (16:02)
[2019-09-13] MEDS: trazodone 50 mg Tablet PO (21:24)
[2019-09-13] MEDS: amitriptyline 25 mg Tablet PO (21:24)
[2019-09-14] VITALS (11 sets, daily range): BP systolic 109–134; BP diastolic 66–76; PULSE 65–86; RESP 17–18; TEMP 36.8–38.4; O2SAT 92–95; BMI 24.8
[2019-09-14 05:41] LABS: Basophils % 0.2 %; Eosinophils # 0.2 10^3/uL (0.0-0.8); Eosinophils % 0.8 %; Hematocrit 21.5 % (37.0-47.0); Hemoglobin 7.1 g/dL (11.5-15.3); Lymphocytes # 1.2 10^3/uL (0.8-4.8); Lymphocytes % 6.6 %; Mean Corpuscular Hemoglobin 31.7 pg (28.0-34.0); Mean Platelet Volume 10.6 fL (7.4-10.4); Monocytes % 5.5 %; Neutrophils # 15.3 10^3/uL (1.8-7.7); Neutrophils % 85.1 %; Nucleated Red Blood Cells % 0 %; Platelet Count 179 10^3/cmm (130-400); Red Blood Count 2.24 10^6/uL (4.1-5.3); Red Cell Distribution Width 13.9 % (12.1-15.1); White Blood Count 17.9 10^3/uL (4.0-10.0)
[2019-09-14 06:02] LABS: Alanine Aminotransferase 13 U/L (0-33); Albumin Level 2.1 g/dL (3.5-5.2); Alkaline Phosphatase 454 IU/L (35-105); Anion Gap 15.5 (5-19); Aspartate Amino Transferase 43 U/L (0-32); Blood Urea Nitrogen 46 mg/dL (8-23); Calcium 8.4 mg/dL (8.5-10.5); Carbon Dioxide 24 mmol/L (22-29); Chloride 98 mmol/L (98-107); Globulin 3.2 g/dL (1.3-4.6); Glucose 86 mg/dL (65-115); Magnesium 1.9 mg/dL (1.7-2.3); Osmolality Calculated 275 mOsm/kg (285-295); Phosphorus 4.4 mg/dL (2.5-4.5); Potassium 3.5 mmol/L (3.5-5.1); Sodium 134 mmol/L (136-145); Total Bilirubin 0.4 mg/dL (0.15-1.2); Total Protein 5.3 g/dL (6.6-8.7)
[2019-09-14] MEDS: pantoprazole 40 mg SDV IVP (06:08)
[2019-09-14] MEDS: atorvastatin 40 mg Tablet 20 MG PO (08:34)
[2019-09-14] MEDS: folic acid 1 mg Tablet PO ×2 (08:34→17:35)
[2019-09-14] MEDS: ferrous sulfate EC 325 mg Tablet PO ×2 (08:35→17:35)
--- NOTE | 2019-09-14 09:51 | PM.PN ---
Subjective Subjective: Interval history: Feels a little better today and she is eating and drinking well. No edema and no other vol Sx, inc breathing is currently comfortable. No uremic Sx. UO volumes not being recorded. Medications: Reviewed: Yes Medication Review Details: Current Medications Acetaminophen (Tylenol) 650 mg PO Q6H PRN PRN Reason: Mild/Mod Pain Or Temp >/= 101 Last Admin: 09/10/19 18:33 Dose: 650 mg Documented by: Hydrocodone Bitart/Acetaminophen ([place] 5-325 Mg) 1 tab PO Q4H PRN PRN Reason: MODERATE TO SEVERE PAIN Last Admin: 09/11/19 20:53 Dose: 1 tab Documented by: Albuterol/Ipratropium (Duoneb) 3 ml INHALATION Q4H PRN PRN Reason: SHORTNESS OF BREATH Amitriptyline HCl (Elavil) 25 mg PO BEDTIME [facility] Last Admin: 09/11/19 20:51 Dose: 25 mg Documented by: Atorvastatin Calcium (Lipitor) 20 mg PO DAILY [facility] Last Admin: 09/11/19 09:21 Dose: 20 mg Documented by: Ferrous Sulfate (Ferrous Sulfate) 325 mg PO BID [facility] Last Admin: 09/11/19 18:09 Dose: 325 mg Documented by: Sodium Chloride (Sodium Chloride 0.9%) 1,000 mls @ 30 mls/hr IV .Q24H [facility] Last Admin: 09/11/19 19:23 Dose: Not Given Documented by: Ceftriaxone Sodium 1,000 mg/ (Sodium Chloride) 50 mls @ 100 mls/hr IV Q24H [facility]; Protocol Last Admin: 09/11/19 11:21 Dose: 100 mls/hr Documented by: Sodium Bicarbonate 150 meq/ (Dextrose) 1,150 mls @ 100 mls/hr IV .[id number] [facility] Last Admin: 09/12/19 01:57 Dose: 100 mls/hr Documented by: Naloxone HCl (Narcan) 0.1 mg IVP Q2M PRN PRN Reason: OPIATERV Nitroglycerin (Nitrostat) 0.4 mg SUBLINGUAL PRN PRN PRN Reason: Chest Pain Non-Formulary Medication (Isosorbide Dinitrate) 2.5 mg PO BID [facility] Last Admin: 09/11/19 18:09 Dose: Not Given Documented by: Ondansetron HCl (Zofran) 4 mg PO Q8H PRN PRN Reason: NAUSEA Last Admin: 09/09/19 18:19 Dose: 4 mg Documented by: Pantoprazole Sodium (Protonix) 40 mg IVP Q12H [facility] Last Admin: 09/12/19 05:08 Dose: 40 mg Documented by: Tizanidine HCl (Zanaflex) 4 mg PO Q8H PRN PRN Reason: Spasms Last Admin: 09/09/19 23:26 Dose: 4 mg Documented by: Trazodone HCl (Desyrel) 50 mg PO BEDTIME [facility] Last Admin: 09/11/19 20:51 Dose: 50 mg Documented by: Vitals/I&O/Wt Last Vital Signs Temp 98.5 F 09/14/19 07:28 Pulse 73 09/14/19 08:41 Resp 18 09/14/19 08:41 BP 132/68 09/14/19 07:28 Pulse Ox 93 09/14/19 08:41 09/13/19 09/14/19 09/14/19 22:59 06:59 14:59 Intake Total 290 / 650 Output Total 650 / 650 550 / 550 Balance -360 / 0 -550 / -550 Weight last 48 hrs Weight 60.056 kg Weight 60.146 kg Weight 73.618 kg Data : 09/14/19 05:19 09/14/19 05:19 Micro: Microbiology 09/10/19 11:31 Blood Culture - Preliminary Blood Gram Negative Rods 09/11/19 16:40 Urine Culture - Preliminary Urine,Clean Catch A&P Additional A&P Information 1. CHRISTELLE - creatinine now coming down; likely multifactorial CHRISTELLE inc infection (both pro and anti-inflammatory cytokines cause a reversible ATN like picture), in the setting of hypotension, IVVD and NSAIDs - renal function now recovering - DC ivf given CXR findings pulm congestion in the setting of emphysema - am labs - no indication for dialysis 2. GNR bacteremia - on iv Rocephin 3. Hemodynamics remain stable 4. Anemia - Hb remains stable - iron levels low although she has macrocytic anemia - folate and ferrous sulfate on board 5. OOB to chair - renal issues now resolving as she continues to demonstrate improvement. Will continue to watch labs but otherwise step back from the case. Thanks Attestations Medical Necessity Statement*: eval for renal failure Coding Level of Care Code Acute Special Officer for Justus Greenwood
[2019-09-14] MEDS: ipratropium-albuterol 3 mL Neb INHALATION (11:15)
--- NOTE | 2019-09-14 11:41 | P.PN_ITS ---
Subjective Subjective: Interval history: Maile reports she is feeling okay. She is able to eat. She is still on oxygen and short of breath when she moves around. Medications: Reviewed: Yes Vitals/I&O/Wt Last Vital Signs Temp 98.3 F 09/14/19 11:25 Pulse 85 09/14/19 11:25 Resp 18 09/14/19 11:25 BP 124/66 09/14/19 11:25 Pulse Ox 93 09/14/19 11:25 09/13/19 09/14/19 09/14/19 22:59 06:59 14:59 Intake Total 290 / 650 Output Total 650 / 650 550 / 550 Balance -360 / 0 -550 / -550 Weight last 48 hrs Weight 60.056 kg Weight 60.146 kg Weight 73.618 kg Physical Exam Narrative: EXAM NARRATIVE: General exam is no apparent distress Cardiovascular regular rate and rhythm Lungs clear. Diminished breath sounds noted bilaterally Abdomen soft with positive bowel sounds Extremities no cyanosis clubbing or edema Data : 09/14/19 05:19 09/14/19 05:19 Micro: Microbiology 09/14/19 10:08 Blood Culture - Preliminary Blood SPECIMEN COLLECTED 09/14/19 10:08 Blood Culture - Preliminary Blood SPECIMEN COLLECTED 09/11/19 16:40 Urine Culture - Final Urine,Clean Catch 09/10/19 11:31 Blood Culture - Preliminary Blood Gram Negative Rods A&P Assessment and plan (1) Cystitis: Culture showed E. coli, sensitive to Rocephin Urine culture appears contaminated, although certainly UA with microscopic appeared to have significant infection. Status: Acute Code(s): N30.90 - Cystitis, unspecified without hematuria (2) Sepsis: Secondary to E. coli Repeat blood culture starting to show some growth. Repeat culture today Rocephin dosing changed to 2 g IV every 24 hours Status: Acute Code(s): A41.9 - Sepsis, unspecified organism (3) Acute renal failure (ARF): Acute kidney injury on chronic kidney disease Multifactorial, sepsis, cystitis, daily NSAID use, digoxin, chronic diuretics Nephrology consulted, appreciate recommendations and assistance in patients half-way Potassium, lasix, naproxen on hold Continues to slowly improve Status: Acute Code(s): N17.9 - Acute kidney failure, unspecified (4) Anemia: Hemoglobin further decreased today Holding Plavix Stool was apparently heme positive in the ER Peripheral smear consistent with renal disease and macrocytosis as well as concern for B12 and folate deficiency Continue on folate and B12. B12 given as injection, and pill tomorrow SPEP and UPEP show no evidence of monoclonal protein. Elevated level of urine free kappa light chains. Continue Protonix, 40 mg twice daily Status: Acute Code(s): D64.9 - Anemia, unspecified Additional A&P Information Hypoalbuminemia Elevated digoxin level. Digoxin level discontinued Metabolic acidosis, resolved Leukocytosis, persistent Acute diastolic heart failure. Currently appears compensated Hypotension, resolved COPD. Stable. Will order scheduled nebulized treatments. Wean oxygen off as tolerated DVT prophylaxis: SCDs, no pharmacologic prophylaxis due to concern for anemia Full code Attestations Medical Necessity Statement*: Needs continued hospitalization for IV antibiotics secondary to gram-negative bacteremia Coding Level of Care Code Acute Database Marketing Manager for Chg Fwd Diagnoses Cystitis N30.90 Sepsis A41.9 Acute renal failure (ARF) N17.9 Anemia D64.9
[2019-09-14] MEDS: cyanocobalamin 1,000 mcg/mL SDV 1000 MCG IM (12:04)
[2019-09-14] MEDS: cefTRIAXone 2,000 MG in sodium chloride 0.9% (plus) 50 ML 100 MG IV (12:05)
--- NOTE | 2019-09-14 13:22 | PC.SOCIAL ---
IM follow up explained and provided to patient. She verbalized understanding and has no questions.
[2019-09-14] MEDS: pantoprazole DR 40 mg Tablet PO (17:35)
[2019-09-14] MEDS: amitriptyline 25 mg Tablet PO (20:40)
[2019-09-14] MEDS: trazodone 50 mg Tablet PO (20:40)
[2019-09-14 22:46] LABS: ANCA Interp Negative (Negative)
[2019-09-15] VITALS (12 sets, daily range): BP systolic 123–179; BP diastolic 67–76; PULSE 64–80; RESP 16–20; TEMP 36.6–37.1; O2SAT 87–94; BMI 25.4
[2019-09-15 05:36] LABS: Basophils % 0.2 %; Eosinophils # 0.2 10^3/uL (0.0-0.8); Eosinophils % 1.1 %; Hematocrit 21.8 % (37.0-47.0); Hemoglobin 7.3 g/dL (11.5-15.3); Lymphocytes # 1.3 10^3/uL (0.8-4.8); Mean Corpuscular HGB Conc 33.5 g/dL (30.0-36.0); Mean Corpuscular Hemoglobin 32.7 pg (28.0-34.0); Mean Corpuscular Volume 97.8 fL (81-99); Mean Platelet Volume 10.6 fL (7.4-10.4); Monocytes % 5.5 %; Neutrophils # 15.8 10^3/uL (1.8-7.7); Neutrophils % 84.6 %; Nucleated Red Blood Cells % 0 %; Platelet Count 191 10^3/cmm (130-400); Red Blood Count 2.23 10^6/uL (4.1-5.3); White Blood Count 18.7 10^3/uL (4.0-10.0)
[2019-09-15 05:55] LABS: Alanine Aminotransferase 13 U/L (0-33); Albumin Level 2.2 g/dL (3.5-5.2); Alkaline Phosphatase 426 IU/L (35-105); Anion Gap 16.5 (5-19); Aspartate Amino Transferase 42 U/L (0-32); Blood Urea Nitrogen 49 mg/dL (8-23); Calcium 8.3 mg/dL (8.5-10.5); Carbon Dioxide 23 mmol/L (22-29); Chloride 99 mmol/L (98-107); Globulin 3.2 g/dL (1.3-4.6); Glucose 95 mg/dL (65-115); Osmolality Calculated 278 mOsm/kg (285-295); Potassium 3.5 mmol/L (3.5-5.1); Sodium 135 mmol/L (136-145); Total Bilirubin 0.4 mg/dL (0.15-1.2); Total Protein 5.4 g/dL (6.6-8.7)
--- NOTE | 2019-09-15 07:59 | P.PN_ITS ---
Subjective Subjective: Interval history: feels better. wants to go home. Medications: Reviewed: Yes Medication Review Details: Current Medications Acetaminophen (Tylenol) 650 mg PO Q6H PRN PRN Reason: Mild/Mod Pain Or Temp >/= 101 Last Admin: 09/10/19 18:33 Dose: 650 mg Documented by: Albuterol/Ipratropium (Duoneb) 3 ml INHALATION Q4H.[facility]PIRATORY [facility] Last Admin: 09/15/19 04:00 Dose: Not Given Documented by: Amitriptyline HCl (Elavil) 25 mg PO BEDTIME [facility] Last Admin: 09/14/19 20:40 Dose: 25 mg Documented by: Atorvastatin Calcium (Lipitor) 20 mg PO DAILY [facility] Last Admin: 09/14/19 08:34 Dose: 20 mg Documented by: Cyanocobalamin (Vitamin B-12) 500 mcg PO DAILY [facility] Ferrous Sulfate (Ferrous Sulfate) 325 mg PO BID [facility] Last Admin: 09/14/19 17:35 Dose: 325 mg Documented by: Folic Acid (Folic Acid) 1 mg PO BID [facility] Last Admin: 09/14/19 17:35 Dose: 1 mg Documented by: Ceftriaxone Sodium 2,000 mg/ (Sodium Chloride) 50 mls @ 100 mls/hr IV Q24H [facility]; Protocol Last Admin: 09/14/19 12:05 Dose: 100 mls/hr Documented by: Naloxone HCl (Narcan) 0.1 mg IVP Q2M PRN PRN Reason: OPIATERV Nitroglycerin (Nitrostat) 0.4 mg SUBLINGUAL PRN PRN PRN Reason: Chest Pain Non-Formulary Medication (Isosorbide Dinitrate) 2.5 mg PO BID [facility] Last Admin: 09/14/19 17:14 Dose: Not Given Documented by: Ondansetron HCl (Zofran) 4 mg PO Q8H PRN PRN Reason: NAUSEA Last Admin: 09/12/19 17:04 Dose: 4 mg Documented by: Pantoprazole Sodium (Protonix) 40 mg PO BID [facility] Last Admin: 09/14/19 17:35 Dose: 40 mg Documented by: Thiamine HCl (Vitamin B-1) 100 mg IV DAILY [facility] Last Admin: 09/14/19 09:55 Dose: 100 mg Documented by: Tizanidine HCl (Zanaflex) 4 mg PO Q8H PRN PRN Reason: Spasms Last Admin: 09/09/19 23:26 Dose: 4 mg Documented by: Trazodone HCl (Desyrel) 50 mg PO BEDTIME [facility] Last Admin: 09/14/19 20:40 Dose: 50 mg Documented by: Vitals/I&O/Wt Last Vital Signs Temp 98.0 F 09/15/19 07:52 Pulse 80 09/15/19 07:52 Resp 18 09/15/19 07:52 BP 129/67 09/15/19 07:52 Pulse Ox 94 09/15/19 07:52 09/14/19 09/15/19 09/15/19 22:59 06:59 14:59 Intake Total 60 / 300 Output Total 450 / 1000 500 / 1500 Balance -390 / -700 -500 / -1200 Weight last 48 hrs Weight 59.165 kg Weight 59.165 kg Weight 57.691 kg Weight 60.056 kg Weight 60.146 kg Physical Exam Narrative: EXAM NARRATIVE: vss, nard in bed Heent- nc/at, eomi, anicteric neck- supple, no jvp, no bruits heart reg no rub abd soft, nt, nd, +BS ext no edema neuro- a,a, o x 3 Data : 09/15/19 05:15 09/15/19 05:15 Micro: Microbiology 09/09/19 13:18 Blood Culture - Final Blood Escherichia coli 09/09/19 13:14 Blood Culture - Final Blood Escherichia coli 09/14/19 10:08 Blood Culture - Preliminary Blood SPECIMEN COLLECTED 09/14/19 10:08 Blood Culture - Preliminary Blood SPECIMEN COLLECTED 09/11/19 16:40 Urine Culture - Final Urine,Clean Catch A&P Additional A&P Information 1. CHRISTELLE - creatinine now coming down; likely ATN, in the setting of hypotension, IVVD and NSAIDs - renal function now recovering -monitor renal fxn, uop and chemistries 2. e. coli bacteremia - on iv Rocephin 3. Anemia - Hb remains stable - iron levels low although she has macrocytic anemia - folate and ferrous sulfate on board -would not give iv iron w/ bacteremia 4 BP excellent Attestations Medical Necessity Statement*: e coli bacteremia on abx. christelle improving. per hospitalist Time Spent in Patient Care: 16 - 35 minutes Coding Level of Care Code Acute Janitor And Cleaner for g Timo
--- NOTE | 2019-09-15 09:00 | XRR_ITS ---
PROCEDURE INFORMATION: Exam: XR Chest, 1 View Exam date and time: 09/15/2019 11:52 AM Age: 73 years old Clinical indication: Shortness of breath; Additional info: Hypoxia TECHNIQUE: Imaging protocol: XR of the chest Views: 1 view. COMPARISON: CR XR chest 2V* [id number] 09/12/2019 3:42 PM FINDINGS: Lungs: Left lower lung consolidation increased. Interstitial thickening. Pleural space: Bilateral costophrenic angle blunting, left more than right. Heart/Mediastinum: Unremarkable. No cardiomegaly. Bones/joints: No acute findings. XR/XR chest 1V portable [id number] IMPRESSION: Increasing left lower lung consolidation and/or left pleural effusion.
[2019-09-15] MEDS: cyanocobalamin 1,000 mcg Tablet 500 MCG PO (09:01)
[2019-09-15] MEDS: atorvastatin 40 mg Tablet 20 MG PO (09:01)
[2019-09-15] MEDS: folic acid 1 mg Tablet PO ×2 (09:01→17:30)
[2019-09-15] MEDS: pantoprazole DR 40 mg Tablet PO ×2 (09:01→17:30)
[2019-09-15] MEDS: ferrous sulfate EC 325 mg Tablet PO ×2 (09:01→17:30)
[2019-09-15] MEDS: cefTRIAXone 2,000 MG in sodium chloride 0.9% (plus) 50 ML 100 MG IV (09:13)
[2019-09-15] MEDS: levofloxacin-dextrose 5 % 750 MG/150 ML PREMIX 150 MG IV (11:28)
[2019-09-15 11:56] LABS: Bilirubin Urine Neg (NEGATIVE); Blood Urine 3+ (Negative); Glucose Urine UA Norm (Normal); Ketones Urine Negative (Negative); Leukocyte Esterase Urine 2+ (Negative); Nitrate Urine Negative (Negative); Protein Urine Trace (Negative); Urine Appearance SL Hazy (CLEAR); Urine Color Yellow (Yellow); Urobilinogen Urine Norm (Negative); pH Urine 6 (5-7)
[2019-09-15 11:59] LABS: Add Urine Culture? Yes; Bacteria Urine 1+; RBC Urine 0-4 /hpf (0-2); Squamous Epithelial Cell Urine RARE (0-5); WBC Urine 25-40 /hpf (0-5)
--- NOTE | 2019-09-15 12:34 | PM.PN ---
Subjective Subjective: Interval history: Maile had a temperature last night. She reports she feels fine. She is wondering when she can go home. She does report some shortness of breath. She denies any rhinorrhea. Occasional cough. Medications: Reviewed: Yes Vitals/I&O/Wt Last Vital Signs Temp 98.4 F 09/15/19 11:25 Pulse 70 09/15/19 11:33 Resp 18 09/15/19 11:33 BP 123/71 09/15/19 11:25 Pulse Ox 93 09/15/19 11:33 09/14/19 09/15/19 09/15/19 22:59 06:59 14:59 Intake Total 60 / 350 360 / 360 Output Total 450 / 1000 500 / 1500 Balance -390 / -650 -500 / -1150 360 / 360 Weight last 48 hrs Weight 59.165 kg Weight 59.165 kg Weight 59.165 kg Weight 57.691 kg Weight 60.056 kg Physical Exam Narrative: EXAM NARRATIVE: General exam is no apparent distress Cardiovascular regular rate and rhythm Lungs clear. Diminished breath sounds noted bilaterally Abdomen soft with positive bowel sounds Extremities no cyanosis clubbing or edema Data : 09/15/19 05:15 09/15/19 05:15 Other Labs: Chest x-ray this morning demonstrates left lower lobe infiltrate and/or effusion. Repeat urinalysis indicates 25-40 white blood cells, 2+ leukocyte Estrace Micro: Microbiology 09/10/19 11:28 Blood Culture - Final Blood NO GROWTH AFTER 5 DAYS 09/14/19 10:08 Blood Culture - Preliminary Blood NEGATIVE TO DATE 09/14/19 10:08 Blood Culture - Preliminary Blood NEGATIVE TO DATE 09/09/19 13:18 Blood Culture - Final Blood Escherichia coli 09/09/19 13:14 Blood Culture - Final Blood Escherichia coli 09/11/19 16:40 Urine Culture - Final Urine,Clean Catch A&P Assessment and plan (1) Cystitis: Culture showed E. coli, sensitive to Rocephin Urine culture appears contaminated, although certainly UA with microscopic appeared to have significant infection. Status: Acute Code(s): N30.90 - Cystitis, unspecified without hematuria (2) Sepsis: Secondary to E. coli Repeat blood culture starting to show some growth, still pending. I repeated culture again on September 13 Rocephin dosing changed to 2 g IV every 24 hours on September 13 Status: Acute Code(s): A41.9 - Sepsis, unspecified organism (3) Acute renal failure (ARF): Acute kidney injury on chronic kidney disease Multifactorial, sepsis, cystitis, daily NSAID use, digoxin, chronic diuretics Nephrology consulted, appreciate recommendations and assistance in patients skilled nursing Potassium, lasix, naproxen on hold Continues to slowly improve Status: Acute Code(s): N17.9 - Acute kidney failure, unspecified (4) Anemia: Hemoglobin appears to have stabilized Holding Plavix Stool was apparently heme positive in the ER Peripheral smear consistent with renal disease and macrocytosis as well as concern for B12 and folate deficiency Continue on folate and B12. B12 given as injection, and pill tomorrow SPEP and UPEP show no evidence of monoclonal protein. Elevated level of urine free kappa light chains. Continue Protonix, 40 mg twice daily Status: Acute Code(s): D64.9 - Anemia, unspecified Additional A&P Information Hypoxia. She was still requiring oxygen this morning. She had a fever last night. I have expanded her antibiotic coverage to include Levaquin for concern of pneumonia. Repeat chest x-ray demonstrates left lower lobe pneumonia, possible effusion. Will check a chest ultrasound. Hopefully no effusion as chest x-ray did not demonstrate this September 11 hypoalbuminemia Elevated digoxin level. Digoxin level discontinued Metabolic acidosis, resolved Leukocytosis, persistent Acute diastolic heart failure. Currently appears compensated Hypotension, resolved COPD. Stable. Will order scheduled nebulized treatments. Wean oxygen off as tolerated DVT prophylaxis: SCDs, no pharmacologic prophylaxis due to concern for anemia Full code Attestations Medical Necessity Statement*: Needs continued hospital stay for IV antibiotics related to pneumonia Coding Level of Care Code Acute Wool Handler for Chg Fwd Diagnoses Cystitis N30.90 Sepsis A41.9 Acute renal failure (ARF) N17.9 Anemia D64.9
--- NOTE | 2019-09-15 12:39 | USR_ITS ---
PROCEDURE INFORMATION: Exam: US Chest Exam date and time: 09/15/2019 12:44 PM Age: 73 years old Clinical indication: Abnormal findings; Abnormal radiologic exam of lung or chest; Patient HX: Lt pleural effusion seen on chest xray this morning; Additional info: Check for left pleural effusion TECHNIQUE: Imaging protocol: Real time ultrasound of the chest was performed with image documentation. COMPARISON: CR (CHEST, ) 09/15/2019 11:42 AM FINDINGS: Pleural space: There is a left pleural effusion measuring 5.6 x 4.8 cm. This fluid pocket is approximately 3.2 cm from the skin surface. US/US chest [id number] IMPRESSION: There is a left pleural effusion.
[2019-09-15] MEDS: amitriptyline 25 mg Tablet PO (20:16)
[2019-09-15] MEDS: trazodone 50 mg Tablet PO (20:16)
[2019-09-15] MEDS: acetaminophen 325 mg Tablet 650 MG PO (20:18)
[2019-09-16] VITALS (9 sets, daily range): BP systolic 135–171; BP diastolic 68–77; PULSE 69–106; RESP 16–18; TEMP 36.7–37.6; O2SAT 88–95; BMI 25.7
[2019-09-16 06:14] LABS: Basophils # 0.1 10^3/uL (0.0-0.1); Basophils % 0.3 %; Eosinophils # 0.3 10^3/uL (0.0-0.8); Eosinophils % 1.4 %; Hematocrit 23.5 % (37.0-47.0); Hemoglobin 7.8 g/dL (11.5-15.3); Lymphocytes # 1.1 10^3/uL (0.8-4.8); Mean Corpuscular HGB Conc 33.2 g/dL (30.0-36.0); Mean Corpuscular Hemoglobin 33.1 pg (28.0-34.0); Mean Corpuscular Volume 99.6 fL (81-99); Mean Platelet Volume 10.7 fL (7.4-10.4); Monocytes # 0.8 10^3/uL (0.2-0.9); Monocytes % 4.2 %; Neutrophils % 86.4 %; Nucleated Red Blood Cells % 0 %; Platelet Count 249 10^3/cmm (130-400); Red Blood Count 2.36 10^6/uL (4.1-5.3); Red Cell Distribution Width 14.1 % (12.1-15.1); White Blood Count 18.5 10^3/uL (4.0-10.0)
[2019-09-16 06:34] LABS: Alanine Aminotransferase 13 U/L (0-33); Albumin Level 2.4 g/dL (3.5-5.2); Alkaline Phosphatase 421 IU/L (35-105); Anion Gap 17.5 (5-19); Aspartate Amino Transferase 37 U/L (0-32); Blood Urea Nitrogen 41 mg/dL (8-23); Calcium 8.5 mg/dL (8.5-10.5); Carbon Dioxide 23 mmol/L (22-29); Chloride 98 mmol/L (98-107); Glucose 72 mg/dL (65-115); Magnesium 1.9 mg/dL (1.7-2.3); Osmolality Calculated 276 mOsm/kg (285-295); Phosphorus 3.9 mg/dL (2.5-4.5); Potassium 3.5 mmol/L (3.5-5.1); Sodium 135 mmol/L (136-145); Total Bilirubin 0.4 mg/dL (0.15-1.2); Total Protein 5.4 g/dL (6.6-8.7)
--- NOTE | 2019-09-16 07:56 | PM.PN ---
Subjective Subjective: Interval history: weak, fevers subjectively. cough. states she is eating. no n/v/itching or cramps. no diarrhea. Medications: Reviewed: Yes Medication Review Details: Current Medications Acetaminophen (Tylenol) 650 mg PO Q6H PRN PRN Reason: Mild/Mod Pain Or Temp >/= 101 Last Admin: 09/15/19 20:18 Dose: 650 mg Documented by: Albuterol/Ipratropium (Duoneb) 3 ml INHALATION Q4H.RESPIRATORY [facility] Last Admin: 09/16/19 07:44 Dose: Not Given Documented by: Amitriptyline HCl (Elavil) 25 mg PO BEDTIME [facility] Last Admin: 09/15/19 20:16 Dose: 25 mg Documented by: Atorvastatin Calcium (Lipitor) 20 mg PO DAILY [facility] Last Admin: 09/15/19 09:01 Dose: 20 mg Documented by: Cyanocobalamin (Vitamin B-12) 500 mcg PO DAILY [facility] Last Admin: 09/15/19 09:01 Dose: 500 mcg Documented by: Ferrous Sulfate (Ferrous Sulfate) 325 mg PO BID [facility] Last Admin: 09/15/19 17:30 Dose: 325 mg Documented by: Folic Acid (Folic Acid) 1 mg PO BID [facility] Last Admin: 09/15/19 17:30 Dose: 1 mg Documented by: Ceftriaxone Sodium 2,000 mg/ (Sodium Chloride) 50 mls @ 100 mls/hr IV Q24H [facility]; Protocol Last Admin: 09/15/19 09:13 Dose: 100 mls/hr Documented by: Levofloxacin/Dextrose (Levaquin-D5w) 750 mg in 150 mls @ 150 mls/hr IV Q48H [facility]; Protocol Last Admin: 09/15/19 11:28 Dose: 150 mls/hr Documented by: Naloxone HCl (Narcan) 0.1 mg IVP Q2M PRN PRN Reason: OPIATERV Nitroglycerin (Nitrostat) 0.4 mg SUBLINGUAL PRN PRN PRN Reason: Chest Pain Non-Formulary Medication (Isosorbide Dinitrate) 2.5 mg PO BID [facility] Last Admin: 09/15/19 15:14 Dose: Not Given Documented by: Ondansetron HCl (Zofran) 4 mg PO Q8H PRN PRN Reason: NAUSEA Last Admin: 03/26/20 17:04 Dose: 4 mg Documented by: Pantoprazole Sodium (Protonix) 40 mg PO BID [facility] Last Admin: 09/15/19 17:30 Dose: 40 mg Documented by: Thiamine HCl (Vitamin B-1) 100 mg IV DAILY [facility] Last Admin: 09/15/19 08:37 Dose: 100 mg Documented by: Tizanidine HCl (Zanaflex) 4 mg PO Q8H PRN PRN Reason: Spasms Last Admin: 09/09/19 23:26 Dose: 4 mg Documented by: Trazodone HCl (Desyrel) 50 mg PO BEDTIME [facility] Last Admin: 09/15/19 20:16 Dose: 50 mg Documented by: Vitals/I&O/Wt Last Vital Signs Temp 99.6 F 09/16/19 07:43 Pulse 79 09/16/19 07:43 Resp 18 09/16/19 07:43 BP 152/76 09/16/19 07:43 Pulse Ox 90 09/16/19 07:43 09/15/19 09/16/19 09/16/19 22:59 06:59 14:59 Intake Total 360 / 840 Output Total 1550 / 1550 400 / 1950 Balance -1190 / -710 -400 / -1110 Weight last 48 hrs Weight 59.058 kg Weight 59.165 kg Weight 59.165 kg Weight 59.165 kg Weight 57.691 kg Physical Exam Narrative: EXAM NARRATIVE: vs noted, nard in bed Heent- nc/at, eomi, anicteric neck- supple, no jvp, no bruits heart reg no rub lung rt base dull, + ronchi abd soft, nt, nd, +BS ext no edema neuro- a,a, o x 3 Data : 09/16/19 05:50 09/16/19 05:50 Micro: Microbiology 09/10/19 11:28 Blood Culture - Final Blood NO GROWTH AFTER 5 DAYS 09/14/19 10:08 Blood Culture - Preliminary Blood NEGATIVE TO DATE 09/14/19 10:08 Blood Culture - Preliminary Blood NEGATIVE TO DATE A&P Additional A&P Information 1. CHRISTELLE - creatinine continues to slowly improve. presumed ATN, in the setting of hypotension, IVVD and NSAIDs -monitor renal fxn, uop and chemistries 2. e. coli bacteremia - on iv Rocephin - high dose for cr of 3 -still w/ wbc and pleural effusion on us- consider thoracetntesis 3. Anemia - Hb remains stable - iron levels low although she has macrocytic anemia - folate and ferrous sulfate on board -would not give iv iron w/ bacteremia 4 BP okay renal dose meds for CKD stage 4. Attestations Medical Necessity Statement*: renal dysfunction, e coli bacteremia, pleural effusion, fevers Time Spent in Patient Care: 16 - 35 minutes Coding Level of Care Code Acute Track Service Worker for Justus Greenwood
[2019-09-16] MEDS: cyanocobalamin 1,000 mcg Tablet 500 MCG PO (09:21)
[2019-09-16] MEDS: folic acid 1 mg Tablet PO ×2 (09:22→17:12)
[2019-09-16] MEDS: atorvastatin 40 mg Tablet 20 MG PO (09:22)
[2019-09-16] MEDS: pantoprazole DR 40 mg Tablet PO ×2 (09:22→17:12)
[2019-09-16] MEDS: ferrous sulfate EC 325 mg Tablet PO ×2 (09:23→17:12)
[2019-09-16] MEDS: cefTRIAXone 2,000 MG in sodium chloride 0.9% (plus) 50 ML 100 MG IV (09:28)
--- NOTE | 2019-09-16 10:46 | PC.SOCIAL ---
IMM Update Pg 2 of IMM updated with patient who verbalized understanding. Copy provided.
--- NOTE | 2019-09-16 11:50 | PM.PN ---
Subjective Subjective: Interval history: No new complaints. feels well. wishes to be discharged home. No dyspnea, chest pain palpitations. renal fxn improving Medications: Reviewed: Yes Medication Review Details: Current Medications Acetaminophen (Tylenol) 650 mg PO Q6H PRN PRN Reason: Mild/Mod Pain Or Temp >/= 101 Last Admin: 09/15/19 20:18 Dose: 650 mg Documented by: Albuterol/Ipratropium (Duoneb) 3 ml INHALATION Q4H.RESPIRATORY PRN PRN Reason: SHORTNESS OF BREATH Amitriptyline HCl (Elavil) 25 mg PO BEDTIME [facility] Last Admin: 09/17/19 21:08 Dose: 25 mg Documented by: Amlodipine Besylate (Norvasc) 5 mg PO DAILY [facility] Last Admin: 09/17/19 08:09 Dose: 5 mg Documented by: Atorvastatin Calcium (Lipitor) 20 mg PO DAILY [facility] Last Admin: 09/17/19 08:10 Dose: 20 mg Documented by: Cyanocobalamin (Vitamin B-12) 500 mcg PO DAILY [facility] Last Admin: 09/17/19 08:09 Dose: 500 mcg Documented by: Ferrous Sulfate (Ferrous Sulfate) 325 mg PO BID [facility] Last Admin: 09/17/19 17:13 Dose: 325 mg Documented by: Folic Acid (Folic Acid) 1 mg PO BID [facility] Last Admin: 09/17/19 17:13 Dose: 1 mg Documented by: Furosemide (Lasix) 20 mg PO DAILY@0800 [facility] Glycerin (Glycerin Adult Supp) 1 each [place] DAILY PRN PRN Reason: CONSTIPATION Last Admin: 09/17/19 21:48 Dose: 1 each Documented by: Ceftriaxone Sodium 1,000 mg/ (Sodium Chloride) 50 mls @ 100 mls/hr IV Q24H [facility]; Protocol Levofloxacin/Dextrose (Levaquin-D5w) 500 mg in 100 mls @ 150 mls/hr IV Q48H [facility]; Protocol Naloxone HCl (Narcan) 0.1 mg IVP Q2M PRN PRN Reason: OPIATERV Nitroglycerin (Nitrostat) 0.4 mg SUBLINGUAL PRN PRN PRN Reason: Chest Pain Non-Formulary Medication (Isosorbide Dinitrate) 2.5 mg PO BID [facility] Last Admin: 09/15/19 15:14 Dose: Not Given Documented by: Ondansetron HCl (Zofran) 4 mg PO Q8H PRN PRN Reason: NAUSEA Last Admin: 09/12/19 17:04 Dose: 4 mg Documented by: Pantoprazole Sodium (Protonix) 40 mg PO BID [facility] Last Admin: 09/17/19 17:13 Dose: 40 mg Documented by: Thiamine HCl (Vitamin B-1) 100 mg IV DAILY [facility] Last Admin: 09/17/19 08:32 Dose: 100 mg Documented by: Tizanidine HCl (Zanaflex) 4 mg PO Q8H PRN PRN Reason: Spasms Last Admin: 09/09/19 23:26 Dose: 4 mg Documented by: Trazodone HCl (Desyrel) 50 mg PO BEDTIME [facility] Last Admin: 09/17/19 21:08 Dose: 50 mg Documented by: Vitals/I&O/Wt Last Vital Signs Temp 98.8 F 09/16/19 11:34 Pulse 73 09/16/19 11:34 Resp 18 09/16/19 11:34 BP 135/70 09/16/19 11:34 Pulse Ox 90 09/16/19 11:34 09/15/19 09/16/19 09/16/19 22:59 06:59 14:59 Intake Total 360 / 890 50 / 50 Output Total 1550 / 1550 400 / 1950 400 / 400 Balance -1190 / -660 -400 / -1060 -350 / -350 Weight last 48 hrs Weight 59.647 kg Weight 59.619 kg Weight 59.058 kg Weight 59.165 kg Weight 59.165 kg Weight 59.165 kg Physical Exam Narrative: EXAM NARRATIVE: GEN: Awake, alert and oriented, no acute distress CVS: S1S2 N RS: CTA B/L except reduced air entry at left lung base Abd: Soft, nt/nd , bs+ ENERGY PROJECT MANAGER: no focal neuro deficits Data : 09/16/19 05:50 09/18/19 04:40 Micro: Microbiology 09/15/19 11:24 Urine Culture - Preliminary Urine,Clean Catch 09/10/19 11:28 Blood Culture - Final Blood NO GROWTH AFTER 5 DAYS 09/14/19 10:08 Blood Culture - Preliminary Blood NEGATIVE TO DATE 09/14/19 10:08 Blood Culture - Preliminary Blood NEGATIVE TO DATE A&P Assessment and plan (1) Cystitis: Culture showed E. coli, sensitive to Rocephin Urine culture appears contaminated, although certainly UA with microscopic appeared to have significant infection. Status: Acute Code(s): N30.90 - Cystitis, unspecified without hematuria (2) Sepsis: Secondary to E. coli Repeat blood culture starting to show some growth, still pending. I repeated culture again on September 13 Rocephin dosing changed to 2 g IV every 24 hours on September 13 Status: Acute Code(s): A41.9 - Sepsis, unspecified organism (3) Acute renal failure (ARF): Acute kidney injury on chronic kidney disease Multifactorial, sepsis, cystitis, daily NSAID use, digoxin, chronic diuretics Nephrology consulted, appreciate recommendations and assistance in patients halfway Potassium, lasix, naproxen on hold Continues to slowly improve Status: Acute Code(s): N17.9 - Acute kidney failure, unspecified (4) Anemia: Hemoglobin appears to have stabilized Holding Plavix Stool was apparently heme positive in the ER Peripheral smear consistent with renal disease and macrocytosis as well as concern for B12 and folate deficiency Continue on folate and B12. B12 given as injection, and pill tomorrow SPEP and UPEP show no evidence of monoclonal protein. Elevated level of urine free kappa light chains. Continue Protonix, 40 mg twice daily Status: Acute Code(s): D64.9 - Anemia, unspecified Additional A&P Information Hypoxia. Currently on RA. New pleural effusion appears to be related to CHF, holding lasix. Doubt empyema as patient otherwise clinically well appearing. No signs of sepsis . Pulmonology consult with Dr. Qureshi; hypoalbuminemia Elevated digoxin level. Digoxin level discontinued Metabolic acidosis, resolved Leukocytosis, persistent Acute diastolic heart failure. Currently appears pleural effusion may be attributable to it. Hypotension, resolved COPD. Stable. Will order scheduled nebulized treatments. Wean oxygen off as tolerated DVT prophylaxis: SCDs, no pharmacologic prophylaxis due to concern for anemia Full code Attestations Medical Necessity Statement*: Awaiting optimization of respiratory status, final cx results Coding Level of Care Code Acute Solar Installation Supervisor for Chg Fwd Diagnoses Cystitis N30.90 Sepsis A41.9 Acute renal failure (ARF) N17.9 Anemia D64.9
[2019-09-16] MEDS: trazodone 50 mg Tablet PO (20:39)
[2019-09-16] MEDS: amitriptyline 25 mg Tablet PO (20:39)
[2019-09-16] MEDS: glycerin adult supp 1 EACH PR (23:07)
[2019-09-17] VITALS (8 sets, daily range): BP systolic 135–156; BP diastolic 68–79; PULSE 75–99; RESP 16–20; TEMP 36.4–37.6; O2SAT 85–92
[2019-09-17 05:25] LABS: Alanine Aminotransferase 10 U/L (0-33); Albumin Level 2.3 g/dL (3.5-5.2); Alkaline Phosphatase 350 IU/L (35-105); Anion Gap 20.9 (5-19); Blood Urea Nitrogen 39 mg/dL (8-23); Calcium 8.1 mg/dL (8.5-10.5); Carbon Dioxide 19 mmol/L (22-29); Chloride 102 mmol/L (98-107); Globulin 2.3 g/dL (1.3-4.6); Glucose 67 mg/dL (65-115); Magnesium 1.9 mg/dL (1.7-2.3); Osmolality Calculated 282 mOsm/kg (285-295); Phosphorus 3.6 mg/dL (2.5-4.5); Potassium 3.9 mmol/L (3.5-5.1); Sodium 138 mmol/L (136-145); Total Bilirubin 0.3 mg/dL (0.15-1.2); Total Protein 4.6 g/dL (6.6-8.7)
[2019-09-17 06:52] LABS: Aspartate Amino Transferase 29 U/L (0-32)
--- NOTE | 2019-09-17 07:02 | PM.PN ---
Subjective Subjective: Interval history: feeling better. no n/v/f/c/sanchez/d. still w/ cough and rt pleurtic chest pain Medications: Reviewed: Yes Medication Review Details: Current Medications Acetaminophen (Tylenol) 650 mg PO Q6H PRN PRN Reason: Mild/Mod Pain Or Temp >/= 101 Last Admin: 09/15/19 20:18 Dose: 650 mg Documented by: Albuterol/Ipratropium (Duoneb) 3 ml INHALATION Q4H.RESPIRATORY PRN PRN Reason: SHORTNESS OF BREATH Amitriptyline HCl (Elavil) 25 mg PO BEDTIME [facility] Last Admin: 09/16/19 20:39 Dose: 25 mg Documented by: Atorvastatin Calcium (Lipitor) 20 mg PO DAILY [facility] Last Admin: 09/16/19 09:22 Dose: 20 mg Documented by: Cyanocobalamin (Vitamin B-12) 500 mcg PO DAILY [facility] Last Admin: 09/16/19 09:21 Dose: 500 mcg Documented by: Ferrous Sulfate (Ferrous Sulfate) 325 mg PO BID [facility] Last Admin: 09/16/19 17:12 Dose: 325 mg Documented by: Folic Acid (Folic Acid) 1 mg PO BID [facility] Last Admin: 09/16/19 17:12 Dose: 1 mg Documented by: Glycerin (Glycerin Adult Supp) 1 each [place] DAILY PRN PRN Reason: CONSTIPATION Last Admin: 09/16/19 23:07 Dose: 1 each Documented by: Ceftriaxone Sodium 2,000 mg/ (Sodium Chloride) 50 mls @ 100 mls/hr IV Q24H [facility]; Protocol Last Infusion: 09/16/19 11:14 Dose: Infused Documented by: Levofloxacin/Dextrose (Levaquin-D5w) 750 mg in 150 mls @ 150 mls/hr IV Q48H [facility]; Protocol Last Admin: 09/15/19 11:28 Dose: 150 mls/hr Documented by: Naloxone HCl (Narcan) 0.1 mg IVP Q2M PRN PRN Reason: OPIATERV Nitroglycerin (Nitrostat) 0.4 mg SUBLINGUAL PRN PRN PRN Reason: Chest Pain Non-Formulary Medication (Isosorbide Dinitrate) 2.5 mg PO BID [facility] Last Admin: 09/15/19 15:14 Dose: Not Given Documented by: Ondansetron HCl (Zofran) 4 mg PO Q8H PRN PRN Reason: NAUSEA Last Admin: 09/12/19 17:04 Dose: 4 mg Documented by: Pantoprazole Sodium (Protonix) 40 mg PO BID [facility] Last Admin: 09/16/19 17:12 Dose: 40 mg Documented by: Thiamine HCl (Vitamin B-1) 100 mg IV DAILY [facility] Last Admin: 09/16/19 10:04 Dose: 100 mg Documented by: Tizanidine HCl (Zanaflex) 4 mg PO Q8H PRN PRN Reason: Spasms Last Admin: 09/09/19 23:26 Dose: 4 mg Documented by: Trazodone HCl (Desyrel) 50 mg PO BEDTIME [facility] Last Admin: 09/16/19 20:39 Dose: 50 mg Documented by: Vitals/I&O/Wt Last Vital Signs Temp 98.3 F 09/17/19 04:00 Pulse 89 09/17/19 04:00 Resp 17 09/17/19 04:00 BP 156/79 09/17/19 04:00 Pulse Ox 90 09/17/19 04:00 09/16/19 09/17/19 09/17/19 22:59 06:59 14:59 Intake Total 100 / 386 100 / 486 Output Total 400 / 1300 650 / 1950 Balance -300 / -914 -550 / -1464 Weight last 48 hrs Weight 59.647 kg Weight 59.647 kg Weight 59.619 kg Weight 59.058 kg Weight 59.165 kg Physical Exam Narrative: EXAM NARRATIVE: vs noted, nard in bed Heent- nc/at, eomi, anicteric neck- supple, no jvp, no bruits heart reg no rub lung rt base dull, + ronchi abd soft, nt, nd, +BS ext no edema neuro- a,a, o x 3 Data : 09/16/19 05:50 09/17/19 04:25 Micro: Microbiology 09/15/19 11:24 Urine Culture - Preliminary Urine,Clean Catch A&P Additional A&P Information 1. CHRISTELLE - creatinine continues to slowly improve. presumed ATN, in the setting of hypotension, IVVD and NSAIDs -monitor renal fxn, uop and chemistries may have some residual ckd 2. e. coli bacteremia - on iv Rocephin - high dose for cr of 3 -still w/ wbc and pleural effusion on us- consider thoracetntesis 3. Anemia - Hb remains stable - iron levels low although she has macrocytic anemia - folate and ferrous sulfate on board -would not give iv iron w/ bacteremia 4 BP elevated- add norvasc 5 mg daily renal dose meds for CKD stage 3b. Attestations Medical Necessity Statement*: qbx, leukocytosis, pleural effusion, improving christelle- as per hospitalist Time Spent in Patient Care: 16 - 35 minutes Coding Level of Care Code Acute Handle Turner for Justus Greenwood
[2019-09-17] MEDS: amlodipine 5 mg Tablet PO (08:09)
[2019-09-17] MEDS: folic acid 1 mg Tablet PO ×2 (08:09→17:13)
[2019-09-17] MEDS: cyanocobalamin 1,000 mcg Tablet 500 MCG PO (08:09)
[2019-09-17] MEDS: ferrous sulfate EC 325 mg Tablet PO ×2 (08:10→17:13)
[2019-09-17] MEDS: pantoprazole DR 40 mg Tablet PO ×2 (08:10→17:13)
[2019-09-17] MEDS: atorvastatin 40 mg Tablet 20 MG PO (08:10)
[2019-09-17] MEDS: levofloxacin-dextrose 5 % 750 MG/150 ML PREMIX 150 MG IV (08:20)
[2019-09-17] MEDS: cefTRIAXone 2,000 MG in sodium chloride 0.9% (plus) 50 ML 100 MG IV (11:10)
[2019-09-17] MEDS: sodium chloride 0.9% (plus) 50 ML 100 ML (11:42)
--- NOTE | 2019-09-17 15:00 | P.PN_ITS ---
Subjective Subjective: Interval history: no new complaints on 09/16. Patient was seen ambulating on the floor with PT without 02 and without overt distress. feels well. Afberile. Medications: Reviewed: Yes Vitals/I&O/Wt Last Vital Signs Temp 98.3 F 09/18/19 04:00 Pulse 108 H 09/18/19 04:00 Resp 20 H 09/18/19 04:00 BP 131/75 09/18/19 04:00 Pulse Ox 92 09/18/19 04:00 09/17/19 09/18/19 09/18/19 22:59 06:59 14:59 Intake Total 220 / 1210 Output Total 500 / 1400 1520 / 2920 Balance -280 / -190 -1520 / -1710 Weight last 48 hrs Weight 58.23 kg Weight 59.647 kg Weight 59.647 kg Weight 59.647 kg Weight 59.619 kg Physical Exam Narrative: EXAM NARRATIVE: GEN: Awake, alert and oriented, no acute distress CVS: S1S2 N RS: CTA B/L except reduced air entry at B/L bases Abd: Soft, nt/nd , bs+ DIRECTOR OF PRODUCT DESIGN: no focal neuro deficits Data : 09/16/19 05:50 09/18/19 04:40 Micro: Microbiology 09/10/19 11:31 Blood Culture - Final Blood Escherichia coli 09/15/19 11:24 Urine Culture - Final Urine,Clean Catch A&P Assessment and plan (1) Cystitis: Status: Acute (2) Sepsis: Status: Acute (3) Acute renal failure (ARF): Status: Acute (4) Anemia: Status: Acute (5) Gram negative septicemia: Status: Acute Additional A&P Information 1. Gram negative septicemia likely from urinary source : - Blood cx with growth of E.coli - based on susceptibility, appropriate to continue rocephin. Reduce dose from 2g iv to 1g iv qd - will plan for total 14 days of rx from cx clearance with iv ceftriaxone. PO FQs would have been an appropriate po choice, however isolate is resistant to it - midline to facilitate above. Patient prefers to get abx as outpatient daily infusion. 2. CHRISTELLE: Cr improving 3. COPD: not currenty exacerbated. Continue with nebulization 4. CHF: Lasix on hold since admission due to CHRISTELLE. Now developing increasing infiltrates and pleural effusion that appears to be related to CHF. Doubt empyema given overall clinically well appearing, sepsis resolving, afberile, no signs of ongoing infection. Above discussed with Dr. Qureshi from pulmonolgy. Per discussion, hold off on thoracentesis for now. Will resume lasix and establish close f/up with pulmonology as outpatient later this week Home 02 evaluation Full code Attestations Medical Necessity Statement*: discharge planning, arranging PIcc line and outpatient abx Coding Level of Care Code Acute Paid Internship for Chg Fwd Diagnoses Cystitis N30.90 Sepsis A41.9 Acute renal failure (ARF) N17.9 Anemia D64.9 Gram negative septicemia A41.50
[2019-09-17] MEDS: trazodone 50 mg Tablet PO (21:08)
[2019-09-17] MEDS: FUROsemide 10 mg/mL SDV 2mL 20 MG IVP (21:08)
[2019-09-17] MEDS: amitriptyline 25 mg Tablet PO (21:08)
[2019-09-17] MEDS: glycerin adult supp 1 EACH PR (21:48)
[2019-09-18] VITALS (8 sets, daily range): BP systolic 131–146; BP diastolic 69–75; PULSE 70–121; RESP 16–20; TEMP 36.4–36.8; O2SAT 83–99
[2019-09-18 05:48] LABS: Alanine Aminotransferase 8 U/L (0-33); Albumin Level 2.6 g/dL (3.5-5.2); Alkaline Phosphatase 304 IU/L (35-105); Anion Gap 16.2 (5-19); Aspartate Amino Transferase 22 U/L (0-32); Blood Urea Nitrogen 30 mg/dL (8-23); Calcium 8.3 mg/dL (8.5-10.5); Carbon Dioxide 24 mmol/L (22-29); Chloride 102 mmol/L (98-107); Globulin 2.8 g/dL (1.3-4.6); Glucose 97 mg/dL (65-115); Magnesium 1.8 mg/dL (1.7-2.3); Osmolality Calculated 285 mOsm/kg (285-295); Phosphorus 3.5 mg/dL (2.5-4.5); Potassium 3.2 mmol/L (3.5-5.1); Sodium 139 mmol/L (136-145); Total Bilirubin 0.4 mg/dL (0.15-1.2); Total Protein 5.4 g/dL (6.6-8.7)
--- NOTE | 2019-09-18 07:05 | P.PN_ITS ---
Subjective Subjective: Interval history: feels better. Medications: Reviewed: Yes Medication Review Details: Current Medications Acetaminophen (Tylenol) 650 mg PO Q6H PRN PRN Reason: Mild/Mod Pain Or Temp >/= 101 Last Admin: 09/15/19 20:18 Dose: 650 mg Documented by: Albuterol/Ipratropium (Duoneb) 3 ml INHALATION Q4H.RESPIRATORY PRN PRN Reason: SHORTNESS OF BREATH Amitriptyline HCl (Elavil) 25 mg PO BEDTIME [facility] Last Admin: 09/17/19 21:08 Dose: 25 mg Documented by: Amlodipine Besylate (Norvasc) 5 mg PO DAILY [facility] Last Admin: 09/17/19 08:09 Dose: 5 mg Documented by: Atorvastatin Calcium (Lipitor) 20 mg PO DAILY [facility] Last Admin: 09/17/19 08:10 Dose: 20 mg Documented by: Cyanocobalamin (Vitamin B-12) 500 mcg PO DAILY [facility] Last Admin: 09/17/19 08:09 Dose: 500 mcg Documented by: Ferrous Sulfate (Ferrous Sulfate) 325 mg PO BID [facility] Last Admin: 09/17/19 17:13 Dose: 325 mg Documented by: Folic Acid (Folic Acid) 1 mg PO BID [facility] Last Admin: 09/17/19 17:13 Dose: 1 mg Documented by: Furosemide (Lasix) 20 mg PO DAILY@0800 [facility] Glycerin (Glycerin Adult Supp) 1 each [place] DAILY PRN PRN Reason: CONSTIPATION Last Admin: 09/17/19 21:48 Dose: 1 each Documented by: Ceftriaxone Sodium 1,000 mg/ (Sodium Chloride) 50 mls @ 100 mls/hr IV Q24H [facility]; Protocol Levofloxacin/Dextrose (Levaquin-D5w) 500 mg in 100 mls @ 150 mls/hr IV Q48H [facility]; Protocol Naloxone HCl (Narcan) 0.1 mg IVP Q2M PRN PRN Reason: OPIATERV Nitroglycerin (Nitrostat) 0.4 mg SUBLINGUAL PRN PRN PRN Reason: Chest Pain Non-Formulary Medication (Isosorbide Dinitrate) 2.5 mg PO BID [facility] Last Admin: 09/15/19 15:14 Dose: Not Given Documented by: Ondansetron HCl (Zofran) 4 mg PO Q8H PRN PRN Reason: NAUSEA Last Admin: 09/12/19 17:04 Dose: 4 mg Documented by: Pantoprazole Sodium (Protonix) 40 mg PO BID [facility] Last Admin: 09/17/19 17:13 Dose: 40 mg Documented by: Thiamine HCl (Vitamin B-1) 100 mg IV DAILY [facility] Last Admin: 09/17/19 08:32 Dose: 100 mg Documented by: Tizanidine HCl (Zanaflex) 4 mg PO Q8H PRN PRN Reason: Spasms Last Admin: 09/09/19 23:26 Dose: 4 mg Documented by: Trazodone HCl (Desyrel) 50 mg PO BEDTIME [facility] Last Admin: 09/17/19 21:08 Dose: 50 mg Documented by: Vitals/I&O/Wt Last Vital Signs Temp 98.3 F 09/18/19 04:00 Pulse 108 H 09/18/19 04:00 Resp 20 H 09/18/19 04:00 BP 131/75 09/18/19 04:00 Pulse Ox 92 09/18/19 04:00 09/17/19 09/18/19 09/18/19 22:59 06:59 14:59 Intake Total 220 / 1210 Output Total 500 / 1400 1520 / 2920 Balance -280 / -190 -1520 / -1710 Weight last 48 hrs Weight 58.23 kg Weight 59.647 kg Weight 59.647 kg Weight 59.647 kg Weight 59.619 kg Physical Exam Narrative: EXAM NARRATIVE: vs noted, nard in bed Heent- nc/at, eomi, anicteric neck- supple, no jvp, no bruits heart reg no rub lung rt base dull, +crackles b/l abd soft, nt, nd, +BS ext no edema neuro- a,a, o x 3 Data : 09/16/19 05:50 09/18/19 04:40 Micro: Microbiology 09/10/19 11:31 Blood Culture - Final Blood Escherichia coli 09/15/19 11:24 Urine Culture - Final Urine,Clean Catch A&P Additional A&P Information 1. CHRISTELLE - creatinine continues to slowly improve. presumed ATN, in the setting of hypotension, IVVD and NSAIDs -monitor renal fxn, uop and chemistries may have some residual ckd 2. e. coli bacteremia - on iv Rocephin - high dose for cr of 3 -still w/ wbc and pleural effusion on us- consider thoracetntesis 3. Anemia - Hb remains stable - iron levels low although she has macrocytic anemia - folate and ferrous sulfate on board -would not give iv iron w/ bacteremia 4 BP improved 5. replete k renal dose meds for CKD stage 3b. and adjust dosages as renal fxn continues to improve renal will see PRN -call w/ questions Attestations Medical Necessity Statement*: improving christelle. as per hospitalist Time Spent in Patient Care: 16 - 35 minutes Coding Level of Care Code Acute Knife Cutter for Justus Greenwood
--- NOTE | 2019-09-18 07:48 | XR_ITS ---
WS: [id number] PORTABLE CHEST HISTORY: pleural effusion COMPARISON: 09/15/2019 Chronic emphysema with interstitial thickening. Improved aeration since 09/15/2019. Mild blunting of the RIGHT costophrenic angle persists. Mild persistent but improving opacification a t the RIGHT LEFT lung base. No pneumothorax. Cardiac size: Normal. Mediastinum/Aorta: Mild atherosclerosis aorta. No osseous abnormality seen. XR/XR chest 1V portable [id number] IMPRESSION: 1. Improving pneumonia at the LEFT lung base and atelectasis. 2. Small RIGHT pleural effusion. Essentially resolved LEFT pleural effusion.
[2019-09-18] MEDS: amlodipine 5 mg Tablet PO (08:10)
[2019-09-18] MEDS: pantoprazole DR 40 mg Tablet PO (08:10)
[2019-09-18] MEDS: atorvastatin 40 mg Tablet 20 MG PO (08:11)
[2019-09-18] MEDS: FUROsemide 20 mg Tablet PO (08:11)
[2019-09-18] MEDS: folic acid 1 mg Tablet PO (08:11)
[2019-09-18] MEDS: ferrous sulfate EC 325 mg Tablet PO (08:11)
[2019-09-18] MEDS: cyanocobalamin 1,000 mcg Tablet 500 MCG PO (08:11)
[2019-09-18] MEDS: cefTRIAXone 1,000 MG in sodium chloride 0.9% (plus) 50 ML 100 MG IV (08:12)
[2019-09-18 08:32] LABS: Basophils # 0.1 10^3/uL (0.0-0.1); Basophils % 0.3 %; Eosinophils # 0.3 10^3/uL (0.0-0.8); Eosinophils % 1.7 %; Hematocrit 22.6 % (37.0-47.0); Hemoglobin 7.3 g/dL (11.5-15.3); Lymphocytes # 1.4 10^3/uL (0.8-4.8); Lymphocytes % 8.4 %; Mean Corpuscular HGB Conc 32.3 g/dL (30.0-36.0); Mean Corpuscular Hemoglobin 32.7 pg (28.0-34.0); Mean Corpuscular Volume 101.3 fL (81-99); Mean Platelet Volume 10.8 fL (7.4-10.4); Monocytes # 0.9 10^3/uL (0.2-0.9); Monocytes % 5.4 %; Neutrophils # 13.8 10^3/uL (1.8-7.7); Neutrophils % 83.1 %; Nucleated Red Blood Cells % 0 %; Platelet Count 410 10^3/cmm (130-400); Red Blood Count 2.23 10^6/uL (4.1-5.3); White Blood Count 16.6 10^3/uL (4.0-10.0)
--- NOTE | 2019-09-18 09:46 | PC.SOCIAL ---
IMM Update Pg 2 of IMM reviewed via telephone with patient. Copy in chart updated.
--- NOTE | 2019-09-18 11:12 | P.DS_ITS ---
Discharge Providers Date of Admission: 09/09/19 15:38 Date of Discharge: September 18, 2019 Attending Provider at Admission: Carli Velazquez DO Attending Provider at Discharge: Paulina See MD Primary Care Provider: Laith Patel Diagnoses at Discharge Discharge Diagnosis (1) Cystitis: Status: Acute (2) Sepsis: Status: Acute (3) Acute renal failure (ARF): Status: Acute (4) Anemia: Status: Acute (5) Gram negative septicemia: Status: Acute Reason for Visit Reason for Visit: Reason For Visit: Low BP at night Hospital Course Discharge Summary: Maile López is a 73 year old female with h/o COPD, not on home 02, CKD, CAD, essential tremors, anemia, diastolic CHF, admitted on 09/08 with concern for urinary tract infection and hypotension and admitted for further evaluation and treatment. CT scan of the abdomen and pelvis does not show any acute abnormalities. Blood cx showed growth of E.coli. She had CHRISTELLE with cr 4.1 upon admission which has improved to 2.4 with iv hydrataion. Upon admission he lasix was placed on hold. Through the course of admission she has developed a left pleural effusion and infiltrates which appear most c/w CHF as a result of fluids and holding lasix. There was some concern for empyema and consult was sought with Dr. Qureshi. Overall given that patient has been afebrile, clinically well appearing, ambulating 2-3 laps without difficulty and no other signs of sepsis, this was less likely to represent an infected collection. Diuresis has been resumed and patient is to follow ith pulmonary clinic to evaluate for resoltuion of effusion. Other plan as follows: 1. Gram negative septicemia likely from urinary source : - Blood cx with growth of E.coli - based on susceptibility, appropriate to continue rocephin. Reduce dose from 2g iv to 1g iv qd - will plan for total 14 days of rx from cx clearance with iv ceftriaxone. PO FQs would have been an appropriate po choice, however isolate is resistant to it - midline to facilitate above. Patient prefers to get abx as outpatient daily infusion. 2. CHRISTELLE: Cr improving 3. COPD: not currenty exacerbated. Continue with nebulization 4. CHF: Lasix on hold since admission due to CHRISTELLE. Now developing increasing infiltrates and pleural effusion that appears to be related to CHF. Doubt empye ma given overall clinically well appearing, sepsis resolving, afberile, no signs of ongoing infection. Above discussed with Dr. Qureshi from pulmonolgy. Per discussion, hold off on thoracentesis for now. Will resume lasix and establish close f/up with pulmonology as outpatient later this week Home 02 evaluation was declined by patient. She is saturating 94% on RA at time of discharge 5. persisting leukocytosis, however withpout any overt signs of residual infection at this time, will need follow up with PCP in the next week. 6. tested FOBT positive at the time of admission, however has not has any marjorie subsequently. Plavix had been on hold during admission for this reason. Will need to be reassessed with PCP follow up. Physical Exam 2 Narrative: EXAM NARRATIVE: GEN: Awake, alert and oriented, no acute distress CVS: S1S2 N RS: CTA B/L Abd: Soft, nt/nd , bs+ INSPECTOR AND CLIPPER: no focal neuro deficits Discharge Data Data Completed and Pending: Completed Studies During Hospitalization Category Date Time Status CT abdomen pelvis wo con 97913 Stat Cat Scan 09/09/19 13:28 Completed XR chest 1V moy ble [id number] Routine Exams 09/10/19 07:52 Completed XR chest 1V moy ble 53987 Routine Exams 09/15/19 09:00 Completed XR chest 1V moy ble 32302 Routine Exams 09/18/19 07:48 Completed XR chest 1V moy ble 32698 Stat Exams 09/09/19 11:34 Completed XR chest 2V* 7104 6 Routine Exams 09/12/19 15:37 Completed CV echo complete* 19389 Routine Ultrasound 09/10/19 07:00 Completed US chest 68102 Ro utine Ultrasound 09/15/19 12:39 Completed US renal BI* 7677 0 Routine Ultrasound 09/10/19 10:50 Completed Pending at discharge Category Date Time Status ANDREINA Screen w/ Ref cinthia Routine Lab 09/11/19 15:40 Results Anti-Neutrophil C utoplasmic AB Rout ine Lab 09/11/19 15:40 Results Blood Culture Sta t Lab 09/14/19 10:08 Results Comprehensive Met abolic Panel AM LA BS Lab 09/19/19 04:00 Ordered Comprehensive Met abolic Panel AM LA BS Lab 09/20/19 04:00 Ordered Comprehensive Met abolic Panel AM LA BS Lab 09/21/19 04:00 Ordered Magnesium AM LABS Lab 09/19/19 04:00 Ordered Magnesium AM LABS Lab 09/20/19 04:00 Ordered Magnesium AM LABS Lab 09/21/19 04:00 Ordered Labs from last 24 hours 09/18/19 09/18/19 04:40 04:40 WBC 16.6 H RBC 2.23 L Hgb 7.3 L Hct 22.6 L MCV 101.3 H MCH 32.7 MCHC 32.3 RDW 14.0 Plt Count 410 H MPV 10.8 H Neut % (Auto) 83.1 Lymph % (Auto) 8.4 [place] % (Auto) 5.4 Eos % (Auto) 1.7 Baso % (Auto) 0.3 Neut # (Auto) 13.8 H Lymph # (Auto) 1.4 [place] # (Auto) 0.9 Eos # (Auto) 0.3 Baso # (Auto) 0.1 Nucleated RBC % (a uto) 0 Nucleated RBCs # 0.0 Sodium 139 Potassium 3.2 L Chloride 102 Carbon Dioxide 24 Anion Gap 16.2 BUN 30 H Creatinine 2.4 H Glucose 97 Calculated Osmolal ity 285 Calcium 8.3 L Phosphorus 3.5 Magnesium 1.8 Total Bilirubin 0.4 AST 22 ALT 8 Alkaline Phosphata se 304 H Total Protein 5.4 L Albumin 2.6 L Globulin 2.8 Vitals: Last Vital Signs Temp 97.8 F 09/18/19 07:27 Pulse 98 09/18/19 08:27 Resp 18 09/18/19 08:27 BP 146/74 09/18/19 07:27 Pulse Ox 94 09/18/19 08:29 Discharge Plan Discharge Patient Disposition: Home Health Service Condition: Stable Prescriptions: New acetaminophen 325 mg Tablet 650 mg PO Q6H PRN (Reason: Mild/Mod Pain Or Temp >/= 101) Qty: 0 RF: 0 cyanocobalamin (vitamin B-12) [Vitamin B-12] 1,000 mcg Tablet 500 mcg PO DAILY Qty: 0 RF: 0 pantoprazole 40 mg Tablet,Delayed Release (Dr/Ec) 40 mg PO BID 30 Days Qty: 60 RF: 0 ceftriaxone 1 gram recon soln 1 gm IV Q24H 9 Days Qty: 9 RF: 0 folic acid 1 mg Tablet 1 mg PO BID Qty: 0 RF: 0 Continued trazodone 50 mg tablet 50 mg PO BEDTIME RF: 0 tizanidine 4 mg tablet 4 mg PO Q8H PRN (Reason: Spasms) RF: 0 amitriptyline 25 mg tablet 25 mg PO BEDTIME RF: 0 simvastatin 20 mg tablet 20 mg PO DAILY RF: 0 ferrous sulfate 325 mg (65 mg iron) tablet 325 mg PO BID RF: 0 nitroglycerin 0.4 mg tablet, sublingual 0.4 mg sublingual PRN PRN (Reason: Chest Pain) RF: 0 isosorbide dinitrate 5 mg tablet 2.5 mg PO BID RF: 0 Changed furosemide 20 mg tablet 40 mg PO DAILY Qty: 0 RF: 0 potassium chloride 20 mEq tablet,ER particles/crystals 40 meq PO DAILY Qty: 0 RF: 0 Held clopidogrel 75 mg tablet 75 mg PO DAILY RF: 0 Hold Instructions: Resume on 09/25/19. check with PCP prior to resuming digoxin 125 mcg (0.125 mg) tablet 125 mcg PO DAILY RF: 0 Hold Instructions: Resume on 09/25/19. resume only after follow up with your PCP Discontinued primidone 50 mg tablet 50 mg PO BID RF: 0 ranitidine HCl 150 mg tablet 150 mg PO BID RF: 0 naproxen 500 mg tablet 500 mg PO BID RF: 0 Discharge Orders: Discharge Order (Routine); Ordered 09/18/19 Ordered By: Paulina See Referrals: [facility] [Outside] Laith Patel DO [Primary Care Provider] - 09/24/19 10:00 am Wili Qureshi MD [Physician] - 09/23/19 8:40 am Discharge Diet: Advance as tolerated Discharge Activity: Resume usual activity Discharge Attestations Time Spent in Discharge Care*: greater than 30 min Quality Metrics Clinical Quality Measures During this hospital stay, did patient experience: None Coding Level of Care Code Acute House Mover for g Fwd Diagnoses Cystitis N30.90 Sepsis A41.9 Acute renal failure (ARF) N17.9 Anemia D64.9 Gram negative septicemia A41.50
[2019-09-18] MEDS: FUROsemide 10 mg/mL SDV 2mL 20 MG IVP (11:47)
[2019-09-18] MEDS: potassium chloride oral liq 20 mEq/15 mL UDC 60 MEQ PO (11:47)
--- NOTE | 2019-09-18 15:00 | PC.NURSE ---
Discharge Summary Patient was given discharge orders and verbalized understanding. patient was alert and orient. vital signs were stable. patient was taken to entrance to be transported home by boyfriend. IV discontinued.
== END 2019-09-18 13:00 | disposition home health service (06) | DRG 871 ==
LOC: ER 14:24 → MEDSURG 17:08
PROVIDERS: Internal Medicine; Internal Medicine Nephrology; Admitting Provider Family Medicine; Emergency Provider Family Medicine; Family Provider Family Medicine; PCP Family Medicine; Visit Provider Student in an Organized Health Care Education/Training Program
DX: A41.9 Sepsis, unspecified organism (principal); I50.31 Acute diastolic (congestive) heart failure; N30.00 Acute cystitis without hematuria; N17.9 Acute kidney failure, unspecified; E87.1 Hypo-osmolality and hyponatremia; E87.2 Acidosis; F17.210 Nicotine dependence, cigarettes, uncomplicated; J44.9 Chronic obstructive pulmonary disease, unspecified; I95.9 Hypotension, unspecified; K80.20 Calculus of gallbladder without cholecystitis without obstruction; K57.90 Diverticulosis of intestine, part unspecified, without perforation or abscess without bleeding; D63.1 Anemia in chronic kidney disease; E86.0 Dehydration; E87.5 Hyperkalemia; G25.0 Essential tremor; N18.3 Chronic kidney disease, stage 3 (moderate); K21.9 Gastro-esophageal reflux disease without esophagitis; I25.10 Atherosclerotic heart disease of native coronary artery without angina pectoris; F41.9 Anxiety disorder, unspecified; E78.5 Hyperlipidemia, unspecified; R09.02 Hypoxemia; E53.8 Deficiency of other specified B group vitamins; B96.20 Unspecified Escherichia coli [E. coli] as the cause of diseases classified elsewhere
CPT/HCPCS: 12345; 36415; 36569; 36600; 71045; 71046; 74176; 76604; 76770; 80051; 80053; 80162; 80500; 81001; 82310; 82436; 82550; 82607; 82728; 82746; 82810; 83516; 83540; 83550; 83605; 83735; 83883; 83970; 83986; 84100; 84133; 84155; 84156; 84165; 84260; 84300; 84443; 84550; 85014; 85018; 85025; 85610; 86038; 86225; 86335; 87040; 87077; 87086; 87186; 87205; 87804; 93005; 93306; 94640; 94664; 96372; 96375; 97110; 97116; 97161; 97530; 99284; C9113; J0610; J0696; J1815; J1940; J1956; J3411; J3420; J7030; Q0162; Q3014; Q4081

== ENCOUNTER 2019-09-19 14:59 | Outpatient (CLI) | payer MEDICARE, MEDICAID, SELFPAY ==
[2019-09-19 15:10] VITALS: BP 129/69; PULSE 92; RESP 16; TEMP 36.7; O2SAT 94
[2019-09-19] MEDS: cefTRIAXone 1,000 MG in sodium chloride 0.9% (plus) 50 ML 100 MG IV (15:46)
[2019-09-19 16:20] VITALS: BP 126/78; PULSE 64; RESP 18; TEMP 36.8; O2SAT 94
--- NOTE | 2019-09-19 16:21 | PC.NURSE ---
Pt instructed to go to [facility] for Mon-Monday infusion.
== END 2019-09-19 15:00 | disposition home or self-care (01) ==
LOC: RHEOACUTE 15:02
PROVIDERS: Family Provider Family Medicine; PCP Family Medicine; Visit Provider Internal Medicine Rheumatology
DX: R78.81 Bacteremia (principal)
CPT/HCPCS: 96365; J0696

== ENCOUNTER 2019-09-20 13:06 | Outpatient (CLI) | payer MEDICARE, MEDICAID, SELFPAY ==
[2019-09-20 13:43] VITALS: BP 154/73; PULSE 77; RESP 20; TEMP 36.6; O2SAT 96
[2019-09-20] MEDS: cefTRIAXone 1,000 MG in sodium chloride 0.9% (plus) 50 ML 100 MG IV (14:33)
--- NOTE | 2019-09-20 15:07 | PC.NURSE ---
patient rec. antibiotics as ordered. dressing to picc removed, skin intact, no redness or swelling or drainage. Dressing change per sterile technique skin per chlorhexidine prep, picc line ns flush 10mls, sterile clear window dressing applied. dressing dated and timed. Patient tolerated well.
== END 2019-09-20 15:16 | disposition home or self-care (01) ==
LOC: OPMS 13:12 → MEDSURG 13:15
PROVIDERS: Family Provider Family Medicine; PCP Family Medicine; Visit Provider Student in an Organized Health Care Education/Training Program
DX: N30.90 Cystitis, unspecified without hematuria (principal); A41.9 Sepsis, unspecified organism; N17.9 Acute kidney failure, unspecified; D64.9 Anemia, unspecified; A41.50 Gram-negative sepsis, unspecified
CPT/HCPCS: 96365; J0696

== ENCOUNTER 2019-09-21 13:14 | Outpatient (CLI) | payer MEDICARE, MEDICAID, SELFPAY ==
[2019-09-21 13:49] VITALS: BP 131/53; PULSE 64; RESP 16; TEMP 36.6; O2SAT 97
[2019-09-21] MEDS: cefTRIAXone 1,000 MG in sodium chloride 0.9% (plus) 50 ML 100 MG IV (14:10)
== END 2019-09-21 14:54 | disposition home or self-care (01) ==
LOC: OPMS 13:18 → MEDSURG 13:39
PROVIDERS: Family Provider Family Medicine; PCP Family Medicine; Visit Provider Family Medicine
DX: N30.90 Cystitis, unspecified without hematuria (principal); A41.9 Sepsis, unspecified organism; N17.9 Acute kidney failure, unspecified; D64.9 Anemia, unspecified; A41.50 Gram-negative sepsis, unspecified
CPT/HCPCS: 96365; J0696

== ENCOUNTER 2019-09-22 12:53 | Outpatient (CLI) | payer MEDICARE, MEDICAID, SELFPAY ==
[2019-09-22] MEDS: cefTRIAXone 1,000 MG in sodium chloride 0.9% (plus) 50 ML 100 MG IV (14:27)
[2019-09-22 14:31] VITALS: BP 145/68; PULSE 81; RESP 16; TEMP 37.1; O2SAT 97
--- NOTE | 2019-09-22 14:32 | PC.NURSE ---
maame pt sitting in chair getting her dose of antibiotics.
--- NOTE | 2019-09-22 15:12 | PC.NURSE ---
done antibiotic infused pt walked down to er where took pt home.
[2019-09-22 15:13] VITALS: BP 151/72; PULSE 74; TEMP 36.9; O2SAT 100
== END 2019-09-22 15:16 | disposition home or self-care (01) ==
LOC: OPMS 12:55 → MEDSURG 09-23 08:04
PROVIDERS: Family Provider Family Medicine; PCP Family Medicine; Visit Provider Family Medicine
DX: N30.90 Cystitis, unspecified without hematuria (principal); A41.9 Sepsis, unspecified organism; N17.9 Acute kidney failure, unspecified; D64.9 Anemia, unspecified; A41.50 Gram-negative sepsis, unspecified
CPT/HCPCS: 36569; J0696

== ENCOUNTER 2019-09-23 12:51 | Outpatient (CLI) | payer MEDICARE, MEDICAID, SELFPAY ==
[2019-09-23 13:04] VITALS: BP 124/53; PULSE 74; RESP 16; TEMP 36.8; O2SAT 97
[2019-09-23] MEDS: cefTRIAXone 1,000 MG in sodium chloride 0.9% (plus) 50 ML 100 MG IV (13:20)
[2019-09-23 13:49] VITALS: BP 148/62; PULSE 74; RESP 16; TEMP 36.8; O2SAT 96
== END 2019-09-23 12:52 | disposition home or self-care (01) ==
LOC: RHEOACUTE 12:52
PROVIDERS: Family Provider Family Medicine; PCP Family Medicine; Visit Provider Student in an Organized Health Care Education/Training Program
DX: A41.50 Gram-negative sepsis, unspecified (principal); A41.9 Sepsis, unspecified organism
CPT/HCPCS: 96365; J0696

== ENCOUNTER 2019-09-24 13:46 | Outpatient (CLI) | payer MEDICARE, MEDICAID, SELFPAY ==
[2019-09-24 14:00] VITALS: BP 135/69; PULSE 75; RESP 16; TEMP 36.6; O2SAT 97
[2019-09-24] MEDS: cefTRIAXone 1,000 MG in sodium chloride 0.9% (plus) 50 ML 100 MG IV (14:04)
[2019-09-24 14:38] VITALS: BP 150/65; PULSE 77; RESP 16; TEMP 36.6; O2SAT 97
== END 2019-09-24 13:47 | disposition home or self-care (01) ==
LOC: RHEOACUTE 13:47
PROVIDERS: Family Provider Family Medicine; PCP Family Medicine; Visit Provider Internal Medicine Rheumatology
DX: A41.9 Sepsis, unspecified organism (principal); N30.90 Cystitis, unspecified without hematuria
CPT/HCPCS: 96365; J0696

== ENCOUNTER 2019-09-25 12:36 | Outpatient (CLI) | payer MEDICARE, MEDICAID, SELFPAY ==
[2019-09-25] MEDS: cefTRIAXone 1,000 MG in sodium chloride 0.9% (plus) 50 ML 100 MG IV (13:03)
[2019-09-25 13:04] VITALS: BP 140/68; PULSE 97; RESP 16; TEMP 36.5; O2SAT 97
[2019-09-25 14:05] VITALS: BP 140/68; PULSE 77; RESP 16; TEMP 36.6; O2SAT 97
== END 2019-09-25 12:37 | disposition home or self-care (01) ==
LOC: RHEOACUTE 12:37
PROVIDERS: Family Provider Family Medicine; PCP Family Medicine; Visit Provider Internal Medicine Rheumatology
DX: A41.9 Sepsis, unspecified organism (principal); N30.90 Cystitis, unspecified without hematuria
CPT/HCPCS: 96365; J0696

== ENCOUNTER 2019-09-26 10:13 | Outpatient (CLI) | payer MEDICARE, MEDICAID, SELFPAY ==
[2019-09-26 10:22] VITALS: BP 142/60; PULSE 71; RESP 16; TEMP 36.7; O2SAT 94
[2019-09-26] MEDS: cefTRIAXone 1,000 MG in sodium chloride 0.9% (plus) 50 ML 100 MG IV (10:28)
[2019-09-26 11:18] VITALS: BP 140/80; PULSE 60; RESP 16; TEMP 36.7; O2SAT 94
== END 2019-09-26 10:14 | disposition home or self-care (01) ==
LOC: RHEOACUTE 10:15
PROVIDERS: Family Provider Family Medicine; PCP Family Medicine; Visit Provider Internal Medicine Rheumatology
DX: A41.9 Sepsis, unspecified organism (principal)
CPT/HCPCS: 96365; J0696

== ENCOUNTER 2019-09-27 11:10 | Outpatient (CLI) | payer MEDICARE, MEDICAID, SELFPAY ==
[2019-09-27 11:41] VITALS: BMI 20.5
[2019-09-27] MEDS: cefTRIAXone 1,000 MG in sodium chloride 0.9% (plus) 50 ML 100 MG IV (11:52)
== END 2019-09-27 12:32 | disposition home or self-care (01) ==
PROVIDERS: Family Provider Family Medicine; PCP Family Medicine; Visit Provider Student in an Organized Health Care Education/Training Program
DX: A41.9 Sepsis, unspecified organism (principal)
CPT/HCPCS: J0696

== ENCOUNTER 2020-05-26 10:10 | Outpatient (CLI) | payer MEDICARE, MEDICAID, SELFPAY ==
[2020-05-26 10:54] LABS: Alanine Aminotransferase 7 U/L (0-33); Albumin Level 4.2 g/dL (3.5-5.2); Alkaline Phosphatase 142 IU/L (35-105); Anion Gap 18.7 (5-19); Aspartate Amino Transferase 10 U/L (0-32); Blood Urea Nitrogen 14 mg/dL (8-23); Calcium 8.6 mg/dL (8.5-10.5); Carbon Dioxide 20 mmol/L (22-29); Chloride 103 mmol/L (98-107); Globulin 3.4 g/dL (1.3-4.6); Glucose 88 mg/dL (65-115); Osmolality Calculated 284 mOsm/kg (285-295); Potassium 4.7 mmol/L (3.5-5.1); Sodium 137 mmol/L (136-145); Total Bilirubin 0.2 mg/dL (0.15-1.2); Total Protein 7.6 g/dL (6.6-8.7)
[2020-05-26 12:13] LABS: Digoxin 1.6 ng/mL (0.6-1.2)
== END 2020-05-26 10:11 | disposition home or self-care (01) ==
LOC: LAB 10:18
PROVIDERS: PCP Family Medicine; Visit Provider Family Medicine
DX: R00.0 Tachycardia, unspecified (principal)
CPT/HCPCS: 36415; 80053; 80162

== ENCOUNTER 2020-06-24 14:39 | Emergency (ER) | payer MEDICARE, MEDICAID, SELFPAY ==
[2020-06-24 14:47] VITALS: BP 147/83; PULSE 91; RESP 16; TEMP 36.4; O2SAT 100; BMI 20.3
--- NOTE | 2020-06-24 14:51 | XR_ITS ---
WS: [id number] Portable AP upright chest, 06/24/2020 Clinical Data: chest pain Comparison: Portable chest, 09/18/2019. Findings: No nodules, masses or effusions are seen. The heart is normal. The pulmonary vascularity is not increased. No pneumonia or pneumothorax is seen. There is a small monitor overlying the central chest. The aortic arch shows mild tortuosity. XR/XR chest 1V portable [id number] Impression: Atherosclerosis.
--- NOTE | 2020-06-24 16:51 | ECG_ITS ---
[facility] Test Date: 2020-06-24 Pat Name: Maile López Department: Room: Gender: Female Pharmacist Helper: : 1945 Requested By: Livia Britt Order Number: [id number] Summer MD: Adria Mcdonald M.D. Measurements Intervals [place] Rate: 82 P: 67 GA: 142 QRS: 16 QRSD: 79 T: 52 QT: 351 QTc: 410 Interpretive Statements SINUS RHYTHM POSSIBLE RIGHT VENTRICULAR CONDUCTION DELAY [RSR (QR) IN V1/V2] NONSPECIFIC ST & T-WAVE ABNORMALITY INTERPRETATION BASED ON A DEFAULT AGE OF 40 YEARS Compared to ECG 09/09/2019 11:47:57 T-wave abnormality now present Electronically Signed On 06-24-2020 20:18:48 ROAD MACHINE RUNNER by Adria Mcdonald M.D. [id number]
== END 2020-06-24 17:24 | disposition left against medical advice (07) ==
PROVIDERS: Emergency Provider Family Medicine; PCP Family Medicine
DX: Z53.21 Procedure and treatment not carried out due to patient leaving prior to being seen by health care provider (principal)
CPT/HCPCS: 71045; 93005; 99281

== ENCOUNTER → 2020-07-27 10:03 | Outpatient (BNVA) | payer MEDICARE, MEDICAID, SELFPAY | PROVIDERS: PCP Family Medicine; Visit Provider Internal Medicine Cardiovascular Disease | DX: R07.9 Chest pain, unspecified (principal) | CPT/HCPCS: 80048; 80162; 83735 ==

== ENCOUNTER 2020-08-27 06:52 | Outpatient (CLI) | payer MEDICARE, MEDICAID, SELFPAY ==
--- NOTE | 2020-08-27 07:06 | ECG_ITS ---
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 Interpretive Statements NAME OF STUDY: LEXISCAN SESTAMIBI STRESS TEST INDICATION: Chest Pain PROCEDURE: At the baseline, the blood pressure was 139/75 mmHg with a heart rate of 57 bpm. The electrocardiogram showed sinus bradycardia, normal axis with nonspecific ST-T wave changes. The Lexiscan was infused over a period of 20 seconds. A total of 0.4 milligrams of Lexiscan was infused. The stress phase was continued for a total of 5 minutes. Heart rate at the end of the stress phase was 88 bpm with a blood pressure of 136/72 mmHg. The EKG at the peak infusion revealed sinus rhythm with no significant ST-T wave changes. Sestamibi was injected 20 seconds after the Lexiscan infusion. Blood pressure at the end of the recovery phase was 137/70 mmHg with a heart rate of 86 beats per minute. CONCLUSION: 1. No significant EKG changes with the LexiScan infusion. 2. No LexiScan induced chest pain or cardiac arrhythmia. 3. Normal blood pressure and heart rate response. 4. Sestamibi/sestamibi perfusion scan pending; see separate report. Electronically Signed On 08-31-2020 17:43:34 CDT by Reba Mathur M.D. [id number]
--- NOTE | 2020-08-27 07:07 | NMCV_ITS ---
NM ahsan perf SPECT r/s* [id number] Maile López Age: 74 Gender: F : 1945 Exam Date: 08/27/2020 07:07 Ordering Phys: Reba Mathur MD ([email or web address]) Technologist: ROGER Childs Exam Location: [facility] Indications: CHEST PAIN STRESS TEST Please see separate stress test report in [facility] for full findings IMAGE PROTOCOL Rest/Stress 1 Lexiscan Day Radiopharmaceutical Dose (mCi) Administration Site Administered by Rest: Tc-99m 10.9 IV ROGER Willis Sestamibi Stress:Tc-99m 32.4 IV ROGER Willis Sestamibi Rest: 27-Aug-2020 60 Discovery 630 Stress: 27-Aug-2020 30 Discovery 630 0.4mg Lexiscan. Images obtained in supine and prone position. SPECT RESULTS Technical Quality: Excellent Raw Data Analysis: Image Corrections: Summed Stress Score: 0 Summed Rest Score: 0 Summed Difference Score: 0 PERFUSION FINDINGS SPECT images demonstrate homogeneous tracer distribution throughout the myocardium. FUNCTIONAL RESULTS (calculated via Gated SPECT) Stress Image LV EF (%): 87 Stress EDV (mL):45 TID: 1.1 Stress ESV (mL):6 FUNCTIONAL FINDINGS: The left ventricle is normal in size. Transient Ischemia Dilatation of 1.1. There is normal left ventricular systolic function. The left ventricular ejection fraction is hyperdynamic with a value of 87%. There is hyperdynamic left ventricular global systolic function and no regional wall motion abnormality. IMPRESSIONS 1. Myocardial perfusion imaging is normal. 2. Overall left ventricular systolic function is normal without regional wall motion abnormalities. 3. The left ventricular ejection fraction is hyperdynamic with a value of 87%. 4. No significant EKG changes with Lexiscan infusion. Please refer to separate report for details. 5. This study suggests a low likelihood of angiographically significant coronary artery disease. Reba Mathur MD (Electronically Signed) Final Date: 31 August 2020 18:10 S
[2020-08-27 07:21] VITALS: BMI 20.5
[2020-08-27] MEDS: regadenoson 0.4 Mg/5 ml Syringe IVP (09:15)
[2020-08-27 09:44] VITALS: BP 137/70; PULSE 87
== END 2020-08-27 06:53 | disposition home or self-care (01) ==
LOC: RAD 07:00 → CDL 07:37
PROVIDERS: PCP Family Medicine; Visit Provider Internal Medicine Cardiovascular Disease
DX: R07.9 Chest pain, unspecified (principal)
CPT/HCPCS: 78452; 93017; A9500; J2785

== ENCOUNTER 2021-01-31 18:13 | Observation (INO) | payer MEDICARE, MEDICAID, SELFPAY ==
[2021-01-31] VITALS (11 sets, daily range): BP systolic 97–122; BP diastolic 48–64; PULSE 58–76; RESP 10–26; TEMP 35.9–36.7; O2SAT 95–97; BMI 20.6; BMI 19.5
--- NOTE | 2021-01-31 18:17 | XACV_ITS ---
Ht: 152 cm Wt: 48 kg BSA: 1.42 m2 Gender: Female : 1945 Any Known Allergies: Penicillins Exam Priority: Routine Procedure(s): Procedure Description: Diagnostic procedure Procedure Description: Coronary Angiography Procedure Description: Pressure Wire Diagnostic Cath Status: Urgent Diagnostic Findings * Left Main has no disease. * Right Coronary Artery has no disease. * Proximal Left Anterior Descending: moderate 50% stenosis, TRANG: 3 flow. * Proximal Circumflex: moderate 50% stenosis, TRANG: 3 flow. * Mid Circumflex: obstructive 60% stenosis, TRANG: 3 flow. * Coronary angiography shows co-dominance. Conclusions 1. There is obstructive coronary artery disease with two vessel disease. 2. FFR: After equalizing the distal and proximal pressure of FFR wire proximal to the lesion, 3. prox 4. LCx lesion was crossed with FFR wire. IV adenosine at rate of 140 mcg/min was started. Patient did not compliant of any symptoms, at then end of two minutes FFR was recorded as 0.93, which is not significant . 5. FFR: After equalizing the distal and proximal pressure of FFR wire proximal to the lesion, 6. prox 7. LAD 8. lesion was crossed with FFR wire. IV adenosine at rate of 140 mcg/min was started. Patient did not compliant of any symptoms, at then end of two minutes FFR was recorded as 0. 9. 89 10. , which is not significant . Recommendations * Continue current medical management and risk factor modification. Diagnostic RX Recommendation: medical therapy and/or counseling Pressures Phase:Rest AO : 100 / 43 ( 64 ) @ 3:49:04 PM Clinical Evaluation EBL: 5mL-10mL Procedural Details Pre-Procedure Time Out. Identified patient by full name and date of as verbalized by the patient/guarantor. Does the consent match the physician's order: Yes. Accurate & Complete Informed Consent: Yes. Inpatient/Outpatient History & Physical on Chart: N/A Emergent. If H&P is completed, is and addenduem needed: N/A Emergent; If yes, is the addendum complete: N/A Emergent. Visualize and Verify Site with Patient/Guarantor: N/A. Relevant Radiology Images available: N/A Emergent. Pre-op teaching completed and patient verbalized understanding. The risks, benefits, and alternatives of sedation and/or procedure were discussed by physician. The patient agrees to continue. Procedure started. [facility] Clinical Fraility Score: 3: Managing Well. Mailroom Associate Indications: ACS > 24 hours. Chest Pain Symptom Assessment: Typical Angina Symptoms. Correct patient, site and procedure confirmed by cath team. Current diagnosis: NSTEMI. PERRLA. Strong, equal hand cna per diem bilaterally. Lungs clear x 5 lobes. IV Site on Arrival: 18 gauge in the left anticubital. IV Site on Arrival: 18 gauge in the right anticubital. IV Fluids: 0.9% NaCl at KVO. 0 mL infused prior to labor relations supervisor. Oxygen started at 2liters/min via nasal canula. right groin was prepped with chloroprep then draped in the usual sterile fashion. right radial was prepped with chloroprep then draped in the usual sterile fashion. Baseline sample Acquired. HR: 67 BPM. Physician notified. Patient's family unavailable. Physician arrived. Current Diagnosis : NSTEMI. Physician scrubbed in. Immediate Pre-Procedure Time Out. Correct Patient: Yes; Correct Procedure: Yes; Correct Site: Yes; Correct Patient Position: Yes; Correct Supplies: Yes; Dried Flammable Prep: Yes; Blood Products Available: N/A;. Lidocaine 1% infiltrated to the right radial. Arterial access obtained. A 5 turkish Tim catheter in over wire. Multiple views taken of right coronary artery. Catheter removed over the exchange wire. A 5 turkish TIG catheter in over wire. Multiple views taken of left coronary artery. Catheter removed over the exchange wire. Inventory is CRD 6FR JL 3 GUIDE. 6 turkish JL 3 guide catheter was inserted over the wire. FFR guidewire was advanced through the guide catheter to lesion in the prox Circ. Bolus stopped. An FFR value of 0.93 was obtained for a lesion located at Prox CX. wire redirected to the LAD. wire out. Reshaped and reinserted. An FFR value of 0.89 was obtained for a lesion located at Prox LAD. Multiple views taken of left coronary artery. Guide catheter out. TR band placed. Hemostasis obtained. A TR Band was successful obtaining hemostatsis at the Right Radial artery insertion site. Physician scrubbed out. Post Procedure: Pulses reassessed and unchanged. PERRLA. Strong, equal hand cna per diem bilaterally. No VTE prophylaxis required. Medication's Wasted: Lidocaine 1% = 18 mL. Medication's Wasted: Nitro = 49.6 mg. Vital chart was stopped. Medication's Wasted: Heparin = 1000 units. Medication's Wasted: Other = Adenosine 140.5 mg. Total IV fluids: 400 mL. Contrast type used: Omnipaque 300 mgI/mL, 500 mL bottle. Post-op diagnosis: Normal Coronaries. Complications: None. Estimated blood loss: 5mL-10mL. Procedure completed. Patient transferred by wheelchair to 1st floor. Access Site Site: Right Radial artery Sheath Size: 6 Fr Hemostasis Method: TR Band Hemostasis Success: Successful Procedure Medications Start: 7:51 PM Stop: 7:51 PM Medication: Versed Amount: 1 mg Route: I.V. Start: 7:51 PM Stop: 7:51 PM Medication: Fentanyl Amount: 50 mcg Route: I.V. Start: 7:54 PM Stop: 7:54 PM Medication: 0.9% Saline Amount: 250 ml Route: I.V. bolus Start: 7:54 PM Stop: 7:54 PM Medication: Solu-Medrol (methylprednisolone) Amount: 120 mg Route: I.V. Start: 8:02 PM Stop: 8:02 PM Medication: Versed Amount: 1 mg Route: I.V. Start: 8:02 PM Stop: 8:02 PM Medication: Fentanyl Amount: 50 mcg Route: I.V. Start: 8:02 PM Stop: 8:02 PM Medication: Nitrogylcerin Amount: 200 mcg Route: I.A. Start: 8:13 PM Stop: 8:13 PM Medication: Heparin Amount: 5000 units Route: I.V. Start: 8:13 PM Stop: 8:13 PM Medication: 0.9% Saline Amount: 250 ml Route: I.V. bolus Start: 8:40 PM Stop: 8:40 PM Medication: Nitrogylcerin Amount: 200 mcg Route: I.A. I, the attending physician, have reviewed and verified all procedure medications. Yes, all medications given per verbal order History/Risk Factors Hypertension: No Dyslipidemia: No Peripheral Arterial Disease (PAD): No Myocardial Infarction (GA): No Obesity: No Renal Disease: No Prior Interventions PCI: No CABG: No Valve Surgery: No Report Signatures Finalized by Curtis Shirley MD on 02/11/2021 07:40 PM
--- NOTE | 2021-01-31 18:23 | ECG_ITS ---
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 Measurements Intervals [place] Rate: 72 P: 76 [place]: 175 QRS: 23 QRSD: 84 T: 73 QT: 390 QTc: 428 Interpretive Statements SINUS RHYTHM POSSIBLE RIGHT VENTRICULAR CONDUCTION DELAY [RSR (QR) IN V1/V2] MODERATE ST DEPRESSION [0.05+ mV ST DEPRESSION] Compared to ECG 06/24/2020 14:55:59 ST (T wave) deviation now present T-wave abnormality no longer present Electronically Signed On 02-01-2021 23:49:56 CDT by Adria Mcdonald M.D. [id number]
--- NOTE | 2021-01-31 18:24 | XRR_ITS ---
PROCEDURE INFORMATION: Exam: XR Chest Exam date and time: 01/31/2021 6:24 PM Age: 75 years old Clinical indication: Sternal or substernal pain; Additional info: Chest pain TECHNIQUE: Imaging protocol: XR of the chest. Views: 1 view. COMPARISON: CR XR chest 1V portable [id number] 06/24/2020 3:12 PM FINDINGS: Lungs: Unremarkable. No consolidation. Emphysema. Pleural spaces: Unremarkable. No pleural effusion. No pneumothorax. Heart/Mediastinum: Unremarkable. No cardiomegaly. Bones/joints: Unremarkable. XR/XR chest 1V portable [id number] IMPRESSION: No acute findings.
--- NOTE | 2021-01-31 18:24 | ECG_ITS ---
[facility] Test Date: 2021-01-31 Pat Name: Maile López Department: Room: Gender: Female Shirt Maker: : 1945 Requested By: Andry Malhotra Order Number: [id number] Summer MD: Adria Mcdonald M.D. Measurements Intervals [place] Rate: 72 P: 76 [place]: 175 QRS: 23 QRSD: 84 T: 73 QT: 390 QTc: 428 Interpretive Statements SINUS RHYTHM POSSIBLE RIGHT VENTRICULAR CONDUCTION DELAY [RSR (QR) IN V1/V2] MODERATE ST DEPRESSION [0.05+ mV ST DEPRESSION] Compared to ECG 06/24/2020 14:55:59 ST (T wave) deviation now present T-wave abnormality no longer present Electronically Signed On 02-01-2021 23:49:48 CDT by Adria Mcdonald M.D. [id number]
--- NOTE | 2021-01-31 18:26 | ED_ITS ---
HPI - Chest Pain General: Chief Complaint: Chest Pain Stated Complaint: CHEST PAIN; SYNCOPE Time Seen by Provider: 01/31/21 18:18 Source: patient and EMS Mode of arrival: EMS Limitations: no limitations History of Present Illness: HPI narrative: This patient presents to emergency department via EMS. She developed chest pain associated with syncope. She states she did not harm her self when she fell. She was with family when this occurred. EMS was notified and arrived on scene. EKG was obtained suggesting isolated ST elevation in aVR. She was given one sublingual nitroglycerin and had another lightheaded or hypotensive episode and was given a fluid bolus. She presents to our emergency department still with 7 out of 10 chest pain. She states that she has been having chest pain off and on for the last 2 to 3 weeks that she is sought care for but has not been successful in completing that care. She is a tobacco user. MD complaint: chest pain Onset (ago): hour(s) Timing of current episode: constant Pain location: substernal Quality: tightness and heaviness Exacerbating factors: nothing Associated symptoms: Reports syncope; Deny abdominal pain, dyspnea, fever(s), nausea or vomiting Treatment prior to arrival: nitroglycerin Risk Factors: Coronary artery disease risk factors: smoking history Review of Systems Const: Denies: fever(s) or chills Eyes: Denies: change in vision ENMT: Denies: throat pain or mouth pain Card: Reports: chest pain and syncope Resp: Denies: dyspnea, productive cough or non-productive cough GI: Denies: abdominal pain, nausea or vomiting : Denies: flank pain Musc: Denies: neck pain, back pain, extremity pain, extremity swelling, joint swelling or joint redness Skin/Breast: Denies: rash Neuro: Denies: headache(s) Psych: Denies: anxiety Endo: Denies: polyuria or polydipsia PFS ED PFSH: Medical History (Updated 01/31/21 @ 19:40 by Andry Malhotra DO) Anemia COPD (chronic obstructive pulmonary disease) Tachycardia Surgical History History of 3 sections History of appendectomy History of hernia surgery Family History Father Stroke Denies family history of Diabetes CAD (coronary artery disease) Family history of premature coronary artery disease Social History Smoking and tobacco status: current every day smoker cigarettes Packs smoked per day: 1.5 Years cigarettes smoked: 57 Quit status (tobacco): not considering quitting Alcohol intake: never Lives independently: Yes Household members: spouse Marital status: Current occupational status: retired History of recent travel: No Current gender identity: Female Physical Exam Const: COMMON NORMALS: no acute distress and patient oriented x3 GENERAL APPEARANCE: cooperative HENMT: COMMON NORMALS: normocephalic and Normal external nose present HEAD & SCALP: normal to inspection and normocephalic FACE & SINUS: normal facial exam NOSE: Normal external nose present Eye: COMMON NORMALS: Equal, round and reactive pupils present, EOMs intact bilaterally and conjunctivae normal CONJUNCTIVA: Yes conjunctivae normal PUPIL: Yes Equal, round and reactive pupils present Neck/C-Spine: COMMON NORMALS: full ROM, no lymphadenopathy, no meningeal signs, no JVD and No carotid bruits Lymph: LYMPHATIC: no lymphadenopathy noted Chest: COMMONS NORMALS: normal inspection of the chest CHEST: No tenderness Resp: COMMON NORMALS: normal respiratory effort, No retractions, No use of accessory muscles and clear to auscultation bilaterally AUSCULTATION: clear to auscultation bilaterally Cardio: COMMON NORMALS: no JVD, regular rate, regular rhythm, No murmurs present (Cardio) and Peripheral pulses 2+ throughout RATE: regular rate RHYTHM: regular rhythm PERIPHERAL PULSES: Peripheral pulses 2+ throughout GI: COMMON NORMALS: Soft to palpation, non-tender and no masses INSPECTION: Yes normal to inspection PALPATION: Yes Soft to palpation : COMMON NORMALS: Yes no CVA tenderness BLADDER/KIDNEY EXAM: Yes no CVA tenderness Back/Pelvis: COMMON NORMALS: no CVA tenderness, thoracic and lumbar spine normal to inspection, no thoracic nor lumbar tenderness and thoraco-lumbar ROM normal Extremity: COMMON NORMALS: normal to inspection, full ROM, capillary refill normal, no clubbing, cyanosis or edema, no calf tenderness and no pedal edema Neuro: COMMON NORMALS: patient oriented x3, moves all extremities, no focal motor deficits and no sensory deficits noted MENINGEAL SIGNS: Yes no meningeal signs Psych: COMMON NORMALS: speech normal ATTITUDE: Yes calm SPEECH: Yes normal speech Course ED course: Patient continues to have ongoing symptoms and had another episode of near syncope. Dr. Palomino is here from cardiology and will take her to the [facility] for further evaluation. Reevaluation(s): Reevaluation #1: Patient states she still having some left- sided chest pain that has been radiating down her left arm. Time: 18:50 Reevaluation #2: Repeat EKG shows ST changes noted on previous EKGs unchanged. Cardiology will come in and see the patient. Consultations: Consultation #1: Discussed with cardiology. He reviewed tracings. Concern is that she is still having ongoing chest pain as well as having syncope and hypotension after nitroglycerin with subtle changes suggestive of possible right coronary artery disease. We will go ahead and reassess in the next 10 to 15 minutes and at that point determine if she still having symptoms we may activate [facility]. Time: 18:30 Vital Signs: Vital signs: Vital Signs Temperature 97.3 F L 01/31/21 18:14 Pulse Rate 76 01/31/21 18:37 Respiratory Rate 20 H 01/31/21 18:37 Blood Pressure 97/48 01/31/21 18:37 Pulse Oximetry 97 01/31/21 18:37 MDM - Chest Pain Lab Data: Labs: Lab Results 01/31/21 01/31/21 01/31/21 Range/Units 17:44 17:44 17:44 WBC 10.7 H (4.0-10.0) 10^3/ uL RBC 3.86 L (4.1-5.3) 10^6/u L Hgb 12.8 (11.5-15.3) g/dL Hct 35.6 L (37.0-47.0) % MCV 92.2 (81-99) fl MCH 33.2 (28.0-34.0) pg MCHC 36.0 (30.0-36.0) g/dL RDW 11.3 L (12.1-15.1) % Plt Count 520 H (130-400) 10^3/c mm MPV 9.1 (7.4-10.4) fL Neut % (Auto) 62.0 % Lymph % (Auto) 28.4 % [place] % (Auto) 7.9 % Eos % (Auto) 1.1 % Baso % (Auto) 0.4 % Neut # (Auto) 6.64 (1.8-7.7) 10^3/u L Lymph # (Auto) 3.0 (0.8-4.8) 10^3/u L [place] # (Auto) 0.9 (0.2-0.9) 10^3/u L Eos # (Auto) 0.1 (0.0-0.8) 10^3/u L Baso # (Auto) 0.0 (0.0-0.1) 10^3/u L Nucleated RBC % (a uto) 0 % Nucleated RBCs # 0.0 /100WBC PT 12.00 L (12.1-14.9) SECO NDS INR 0.86 (0.8-1.2) APTT 29.8 (23.9-36.7) SECO NDS Sodium (136-145) mmol/L Potassium (3.5-5.1) mmol/L Chloride (98-107) mmol/L Carbon Dioxide (22-29) mmol/L Anion Gap (5-19) BUN (8-23) mg/dL Creatinine (0.5-0.9) mg/dL GFR Calculation Glucose (65-115) mg/dL Calculated Osmolal ity (285-295) mOsm/k g Calcium (8.5-10.5) mg/dL Total Bilirubin (0.15-1.2) mg/dL AST (0-32) U/L ALT (0-33) U/L Alkaline Phosphata se (35-105) IU/L Troponin T Baselin e 20 H (0-10) ng/L Total Protein (6.6-8.7) g/dL Albumin (3.5-5.2) g/dL Globulin (1.3-4.6) g/dL 01/31/21 Range/Units 17:44 WBC (4.0-10.0) 10^3/ uL RBC (4.1-5.3) 10^6/u L Hgb (11.5-15.3) g/dL Hct (37.0-47.0) % MCV (81-99) fl MCH (28.0-34.0) pg MCHC (30.0-36.0) g/dL RDW (12.1-15.1) % Plt Count (130-400) 10^3/c mm MPV (7.4-10.4) fL Neut % (Auto) % Lymph % (Auto) % [place] % (Auto) % Eos % (Auto) % Baso % (Auto) % Neut # (Auto) (1.8-7.7) 10^3/u L Lymph # (Auto) (0.8-4.8) 10^3/u L [place] # (Auto) (0.2-0.9) 10^3/u L Eos # (Auto) (0.0-0.8) 10^3/u L Baso # (Auto) (0.0-0.1) 10^3/u L Nucleated RBC % (a uto) % Nucleated RBCs # /100WBC PT (12.1-14.9) SECO NDS INR (0.8-1.2) APTT (23.9-36.7) SECO NDS Sodium 124 L (136-145) mmol/L Potassium 2.9 L (3.5-5.1) mmol/L Chloride 77 L (98-107) mmol/L Carbon Dioxide 32 H (22-29) mmol/L Anion Gap 17.9 (5-19) BUN 23 (8-23) mg/dL Creatinine 1.6 H (0.5-0.9) mg/dL GFR Calculation Not Reportable Glucose 85 (65-115) mg/dL Calculated Osmolal ity 261 L (285-295) mOsm/k g Calcium 9.1 (8.5-10.5) mg/dL Total Bilirubin 0.2 (0.15-1.2) mg/dL AST 13 (0-32) U/L ALT 9 (0-33) U/L Alkaline Phosphata se 164 H (35-105) IU/L Troponin T Baselin e (0-10) ng/L Total Protein 7.4 (6.6-8.7) g/dL Albumin 4.8 (3.5-5.2) g/dL Globulin 2.6 (1.3-4.6) g/dL Imaging Data^: CXR: My impression: Chest x-ray shows normal heart size. No infiltrates. EKG Data^: EKG 1: Attestation: I personally reviewed and interpreted this EKG as follows: (EKG shows ST elevation in aVR. Shows [address] elevation in aVR. She has approximately [address] depression in two three. She has some nonspecific changes noted in V2 three. She does have ST depressions noted in V4 and nonspecific changes otherwise. 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
[2021-01-31] MEDS: aspirin 81 mg Chew Tablet 324 MG PO (18:34)
[2021-01-31] MEDS: morphine 4 mg/mL SDV 1 mL 2 MG IVP (18:35)
[2021-01-31 18:37] LABS: Basophils % 0.4 %; Eosinophils # 0.1 10^3/uL (0.0-0.8); Eosinophils % 1.1 %; Hematocrit 35.6 % (37.0-47.0); Hemoglobin 12.8 g/dL (11.5-15.3); Lymphocytes % 28.4 %; Mean Corpuscular Hemoglobin 33.2 pg (28.0-34.0); Mean Corpuscular Volume 92.2 fl (81-99); Mean Platelet Volume 9.1 fL (7.4-10.4); Monocytes # 0.9 10^3/uL (0.2-0.9); Monocytes % 7.9 %; Neutrophils # 6.64 10^3/uL (1.8-7.7); Nucleated Red Blood Cells % 0 %; Platelet Count 520 10^3/cmm (130-400); Red Blood Count 3.86 10^6/uL (4.1-5.3); Red Cell Distribution Width 11.3 % (12.1-15.1); White Blood Count 10.7 10^3/uL (4.0-10.0)
[2021-01-31 18:48] LABS: INR 0.86 (0.8-1.2)
[2021-01-31 18:49] LABS: Partial Thromboplastin Time 29.8 SECONDS (23.9-36.7)
--- NOTE | 2021-01-31 18:51 | ECG_ITS ---
[facility] Test Date: 2021-01-31 Pat Name: Maile López Department: Room: Gender: Female [employer] Architect: : [id number] Requested By: Andry Malhotra Order Number: [id number] Summer MD: Adria Mcdonald M.D. Measurements Intervals [place] Rate: 71 P: 21 W[place]: 158 QRS: 5 QRSD: 82 T: 60 QT: 394 QTc: 429 Interpretive Statements SINUS RHYTHM POSSIBLE RIGHT VENTRICULAR CONDUCTION DELAY [RSR (QR) IN V1/V2] NONSPECIFIC ST & T-WAVE ABNORMALITY Compared to ECG 01/31/2021 18:15:38 T-wave abnormality now present ST (T wave) deviation no longer present Electronically Signed On 02-01-2021 23:54:45 CDT by Adria Mcdonald M.D. [id number]
[2021-01-31 18:54] LABS: Alanine Aminotransferase 9 U/L (0-33); Albumin Level 4.8 g/dL (3.5-5.2); Alkaline Phosphatase 164 IU/L (35-105); Anion Gap 17.9 (5-19); Aspartate Amino Transferase 13 U/L (0-32); Blood Urea Nitrogen 23 mg/dL (8-23); Calcium 9.1 mg/dL (8.5-10.5); Carbon Dioxide 32 mmol/L (22-29); Chloride 77 mmol/L (98-107); Globulin 2.6 g/dL (1.3-4.6); Glucose 85 mg/dL (65-115); Osmolality Calculated 261 mOsm/kg (285-295); Sodium 124 mmol/L (136-145); Total Bilirubin 0.2 mg/dL (0.15-1.2); Total Protein 7.4 g/dL (6.6-8.7); Troponin(5th) Baseline 20 ng/L (0-10)
[2021-01-31 19:04] LABS: Potassium 2.9 mmol/L (3.5-5.1)
--- NOTE | 2021-01-31 19:42 | P.HP_ITS ---
Providers/Chief Complaint Primary Care Provider: Laith Patel Chief Complaint: CHEST PAIN; SYNCOPE History of Present Illness Maile López is a 75 year old female past medical history significant for continuous tobacco abuse hypertension hyperlipidemia no coronary history disease history but recurrent syncope thought to be due to postural orthostatic tachycardia syndrome she presented with 2 episodes of syncope and chest pain 7 out 10 after two nitroglycerin. Patient passed out in the emergency room while on the gurney however she was not hooked to the monitor therefore staff was not able to assess its correlation with heart rhythm. According the patient for the last 2 to 3 weeks she has been experiencing off and on chest pain upon exertion and sometimes at rest since this morning chest pain has become more frequent and stayed there for few minutes in waxing and waning pattern radiating to left breast. Twelve-lead EKG showed incomplete right bundle branch block with inferolateral mild ST depression when compared to the prior EKG there was no significant change. Initial generation for troponin was at the baseline of 20 . Since patient continues to have off-and-on chest pain and because of the fact she has a negative stress test but continues to have chest pain suspicious for cardiac with the risk factors such as being smoker hyperlipidemia and hypertension we would therefore proceed with left heart cath. I have detailed discussion with the patient regarding all risk benefit and alternative for the procedure she understood the risk for stroke arrhythmia major minor bleed transfusion urgent emergent bypass or vascular surgery. She would like to proceed with it. She denies any contraindication for dual antiplatelet therapy. In fact she is on Plavix for possible CVA. She has underlying chronic kidney disease she understand the risk of contrast-induced nephropathy transient or permanent dialysis. I will hydrate her with IV fluid Medications/Allergies Home Medications Medication Instructions Recorded Confirmed Last Taken Type amitriptyline 25 mg PO BEDTIME 09/09/19 01/31/21 01/30/21 History clopidogrel 75 mg PO DAILY 09/09/19 01/31/21 01/31/21 History ferrous sulfate 325 mg PO BID 09/09/19 01/31/21 01/31/21 History isosorbide dinitrate 2.5 mg PO BID 09/09/19 01/31/21 01/31/21 History nitroglycerin 0.4 mg SUBLINGUAL PRN PRN 09/09/19 01/31/21 Unknown History tizanidine 4 mg PO Q8H PRN 09/09/19 01/31/21 09/09/19 History acetaminophen 650 mg PO Q6H PRN #0 tab 09/18/19 01/31/21 Unknown Rx naproxen 500 mg tablet 500 mg PO BID PRN 07/16/20 01/31/21 01/31/21 History omeprazole 40 mg capsule,delayed 40 mg PO DAILY 07/16/20 01/31/21 01/31/21 History release primidone 50 mg tablet 50 mg PO BID tab 07/16/20 01/31/21 01/31/21 History metoprolol succinate 25 mg 12.5 mg PO DAILY #45 tab 09/15/20 01/31/21 01/31/21 Rx tablet,extended release 24 hr digoxin 125 mcg (0.125 mg) tablet 125 mcg PO DAILY tab 01/04/21 01/31/21 01/31/21 History midodrine 5 mg tablet 5 mg PO TID tab 01/04/21 01/31/21 01/31/21 History simvastatin 20 mg tablet 20 mg PO DAILY 01/04/21 01/31/21 01/30/21 History Dexilant 60 mg PO DAILY 01/31/21 01/31/21 01/31/21 History Allergies Allergy/AdvReac Type Severity Reaction Status Date / Time iodine Allergy Unknown Verified 01/04/21 10:17 Penicillins Allergy ALGY-Anaphy Verified 01/04/21 10:17 laxis PFSH Acute PFSH: Medical History (Updated 01/31/21 @ 19:54 by Curtis Shirley MD) Anemia COPD (chronic obstructive pulmonary disease) Tachycardia Surgical History History of 3 sections History of appendectomy History of hernia surgery Family History Father Stroke Denies family history of Diabetes CAD (coronary artery disease) Family history of premature coronary artery disease Social History Smoking and tobacco status: current every day smoker cigarettes Packs smoked per day: 1.5 Years cigarettes smoked: 57 Quit status (tobacco): not considering quitting Alcohol intake: never Lives independently: Yes Household members: spouse Marital status: Current occupational status: retired History of recent travel: No Current gender identity: Female Vitals/I&O/Wt Last Vital Signs Temp 97.3 F L 01/31/21 18:14 Pulse 76 01/31/21 18:37 Resp 20 H 01/31/21 18:37 BP 97/48 01/31/21 18:37 Pulse Ox 97 01/31/21 18:37 Weight last 48 hrs Weight 105 lb 9.6 oz Physical Exam Narrative: EXAM NARRATIVE: GENERAL: Patient is alert, awake and oriented NECK: No jugular vein distension. HEENT: No cyanosis. No icterus. No pallor. HEART: Regular S1 and S2. No murmur, rub or gallop. LUNGS: Clear to auscultate bilaterally. ABDOMEN: Soft, nontender and nondistended. Positive bowel sounds. No guarding, rebound or tenderness. CENTRAL NERVOUS SYSTEM: Grossly nonfocal. EXTREMITIES: Lower extremities without edema bilaterally. Data : 02/01/21 04:28 02/01/21 04:28 A&P Assessment and plan (1) Chest pain: As defined above and due to its recurrence we will proceed with left heart cath/PCI if indicated. Further plan will be devised as per progress of the patient. Status: Acute (2) Syncope: Of unknown note etiology but possibly due to postural orthostatic tachycardia syndrome however will rule out any arrhythmia with telemetry Status: Acute (3) Postural orthostatic tachycardia syndrome: Continue to monitor continue midodrine Status: Acute (4) Chronic kidney disease: Continue IV fluid Status: Acute Attestations Medical Necessity Statement*: Patient is under observation for next 24 hours. 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
--- NOTE | 2021-01-31 19:50 | PC.NURSE ---
during trop draw, pt states I am going to throw up . [place] provided to pt. Pt had a syncopal episode prior to vomiting. Pt had full LOC for approx 2 min. Assistance requested by laborer wrecking and salvaging staff who was present in hallway. Pt regained consciousness after positioning in bed by staff. Pt has no memory of events. Dr Ridley gave order for pt to taken to laborer wrecking and salvaging. second IV 18g in R AC. Pt taken to film laboratory technician without further difficulites or complaints
[2021-01-31 20:31] LABS: Troponin 5 2HR 19.59 ng/L (0-10); Troponin 5 2HR Delta -0.41 ABS# (0-10)
[2021-01-31] MEDS: midodrine 5 mg TABLET PO (22:00)
[2021-01-31] MEDS: sodium chloride 0.9% 1,000 ML 100 ML IV (22:02)
--- NOTE | 2021-01-31 23:57 | PC.NURSE ---
Transfer Note Patient transferred to CSU from laboratory technology teacher via wheelchair. Handoff received from laboratory technology teacher RN (Earle). Patient oriented to environment and equipment. Covering service notified. Orders reviewed and will continue to monitor. Family and/or chemical sales representative notified.
[2021-02-01] VITALS (20 sets, daily range): BP systolic 103–118; BP diastolic 54–64; PULSE 58–85; RESP 12–22; TEMP 36.4–36.8; O2SAT 93–97
[2021-02-01 04:59] LABS: Basophils % 0.2 %; Hematocrit 30.8 % (37.0-47.0); Hemoglobin 11.2 g/dL (11.5-15.3); Lymphocytes # 0.9 10^3/uL (0.8-4.8); Mean Corpuscular HGB Conc 36.4 g/dL (30.0-36.0); Mean Corpuscular Hemoglobin 33.2 pg (28.0-34.0); Mean Corpuscular Volume 91.4 fl (81-99); Mean Platelet Volume 9.2 fL (7.4-10.4); Monocytes # 0.2 10^3/uL (0.2-0.9); Monocytes % 3.5 %; Nucleated Red Blood Cells % 0 %; Platelet Count 365 10^3/cmm (130-400); Red Blood Count 3.37 10^6/uL (4.1-5.3); Red Cell Distribution Width 11.3 % (12.1-15.1); White Blood Count 6.1 10^3/uL (4.0-10.0)
[2021-02-01 05:35] LABS: Anion Gap 17.4 (5-19); Blood Urea Nitrogen 22 mg/dL (8-23); Carbon Dioxide 27 mmol/L (22-29); Chloride 86 mmol/L (98-107); Glucose 119 mg/dL (65-115); Osmolality Calculated 268 mOsm/kg (285-295); Potassium 3.4 mmol/L (3.5-5.1); Sodium 127 mmol/L (136-145)
--- NOTE | 2021-02-01 06:17 | NUR.SHIFT ---
Shift Note Frequent safety and comfort rounds continue. Orders and/or nursing care completed as indicated. Patient monitored for response to intervention and treatment(s). Education provided includes importance of care for incision site to prevent infection. Patient and/or player services representative accepting of teaching. Site was checked often throughout shift. Will continue to monitor.
--- NOTE | 2021-02-01 08:48 | PC.CHAP ---
Pastoral Care Encounter/Spiritual Assessment Type of Contact [] Declined salesperson burial plots visit [] Patient/Family/Request visit [] Outpatient visit [] Follow-up visit [] Physician referral [] Code/Alert [x] Routine visit [] Staff referral [] Actively dying [] Patient sleeping [] Family support [] [] Out of room [] Palliative care [] [] Receiving care in room [] Pre-surgical visit [] Trauma [] Long length of stay [] ICU visit [x] Other: Relational/Emotional Strength [] Patient feels connected with others/family/visitors/staff [] Distress [] Loneliness/isolation [] Abandonment Spirituality of Patient [x] Person of Lizeth [] Attends Hoahaoism of their Lizeth [] Believes in Prayer [] Reads Bible or Sabianist materials [] There are Spiritual issues to be addressed Survey Research Analyst Interventions [x] Prayer [x] Active listening [x] Non-anxious presence [x] Spiritual/emotional support [] Crisis/trauma care [] Spiritual counseling [] Bereavement support [] Provided bereavement packet [] Provided Bible/devotional materials [] Provided toy/stuffed animal, coloring book to patient or family member [] Provided Communion [] Anointing/[place] [] Salvation [x] Completed spiritual assessment [] Other: Impact on Illness or Injury [] Angry [] Fearful [] Anxious [] Often cries [] Exhaustion [] Unable to work [] Unable to attend zoroastrianism [] Unable to walk/stand [] Unable to read [] Unable to drive [] Unable to eat/drink [] Unable to sleep [] Unable to be with family [] Patient intubated [] Other: Summary patient feeling better... prayed for strength Time spent with patient 5 min
[2021-02-01 09:53] LABS: Digoxin 1.8 ng/mL (0.6-1.2)
[2021-02-01] MEDS: midodrine 5 mg TABLET PO (11:08)
[2021-02-01] MEDS: pantoprazole DR 40 mg Tablet PO (11:08)
[2021-02-01] MEDS: ferrous sulfate EC 325 mg Tablet PO (11:08)
[2021-02-01] MEDS: clopidogrel 75 mg Tablet PO (11:08)
[2021-02-01] MEDS: primidone 50 mg Tablet PO (11:08)
[2021-02-01] MEDS: atorvastatin 40 mg Tablet 20 MG PO (11:09)
[2021-02-01] MEDS: metoprolol succinate ER (24 HR) 25 mg Tablet 12.5 MG PO (11:09)
--- NOTE | 2021-02-01 13:05 | PM.DCS ---
Discharge Providers Date of Admission: 01/31/21 21:21 Date of Discharge: February 01, 2021 Attending Provider at Admission: Curtis Shirley MD Attending Provider at Discharge: uCrtis Shirley MD Primary Care Provider: Laith Patel Diagnoses at Discharge Discharge Diagnosis (1) Chest pain: Status: Acute (2) Syncope: Status: Acute (3) Postural orthostatic tachycardia syndrome: Status: Acute (4) Chronic kidney disease: Status: Acute Reason for Visit Reason for Visit: CHEST PAIN; SYNCOPE Hospital Course Hospital Course 75-year-old female past medical history significant for recurrent syncope possible due to POTS, chronic kidney disease, labile hypertension, hyperlipidemia for recurrent syncope and chest pain underwent left heart cath noted to have moderate mid circumflex and LAD lesion. FFR was performed which was not significant patient was monitored overnight for any arrhythmia. Labs were consistent with hyponatremia, digoxin was checked which was 1.8. For hyponatremia I will discontinue diuretics including Lasix and triamterene. Advised to take normal diet. Patient is not confused therefore electrolyte balance can be restored as an outpatient. Creatinine improved from 1.6-1.4 after IV fluid of normal saline. Patient has been advised to follow-up with cardiology on regular basis. We will also see her early with cardiology nurse practitioner to make sure she is doing fine for electrolyte balance and renal function fernandez. Physical Exam Narrative: EXAM NARRATIVE: GENERAL: Patient is alert, awake and oriented NECK: No jugular vein distension. HEENT: No cyanosis. No icterus. No pallor. HEART: Regular S1 and S2. No murmur, rub or gallop. LUNGS: Clear to auscultate bilaterally. ABDOMEN: Soft, nontender and nondistended. Positive bowel sounds. No guarding, rebound or tenderness. CENTRAL NERVOUS SYSTEM: Grossly nonfocal. EXTREMITIES: Lower extremities without edema bilaterally. Discharge Data Data Completed and Pending: Completed Studies During Hospitalization Category Date Time Status XR chest 1[place] [id number] Stat Exams 01/31/21 18:24 Completed Pending at discharge Category Date Time Status [employer] request for service Stat Exams 01/31/21 18:17 Taken Labs from last 24 hours 02/01/21 02/01/21 02/01/21 04:28 04:28 04:28 WBC 6.1 RBC 3.37 L Hgb 11.2 L Hct 30.8 L MCV 91.4 MCH 33.2 MCHC 36.4 H RDW 11.3 L Plt Count 365 MPV 9.2 Neut % (Auto) 81.0 Lymph % (Auto) 15.0 [place] % (Auto) 3.5 Eos % (Auto) 0.0 Baso % (Auto) 0.2 Neut # (Auto) 4.90 Lymph # (Auto) 0.9 [place] # (Auto) 0.2 Eos # (Auto) 0.0 Baso # (Auto) 0.0 Nucleated RBC % (a uto) 0 Nucleated RBCs # 0.0 PT INR APTT Sodium 127 L Potassium 3.4 L Chloride 86 L Carbon Dioxide 27 Anion Gap 17.4 BUN 22 Creatinine 1.4 H GFR Calculation Not Reportable Glucose 119 H Calculated Osmolal ity 268 L Calcium 8.0 L Total Bilirubin AST ALT Alkaline Phosphata se Troponin T Baselin e Troponin T [address] [place] Troponin T Total Protein Albumin Globulin Digoxin 1.8 H 01/31/21 01/31/21 01/31/21 19:27 17:44 17:44 WBC RBC Hgb Hct MCV MCH MCHC RDW Plt Count MPV Neut % (Auto) Lymph % (Auto) [place] % (Auto) Eos % (Auto) Baso % (Auto) Neut # (Auto) Lymph # (Auto) [place] # (Auto) Eos # (Auto) Baso # (Auto) Nucleated RBC % (a uto) Nucleated RBCs # PT 12.00 L INR 0.86 APTT 29.8 Sodium 124 L Potassium 2.9 L Chloride 77 L Carbon Dioxide 32 H Anion Gap 17.9 BUN 23 Creatinine 1.6 H GFR Calculation Not Reportable Glucose 85 Calculated Osmolal ity 261 L Calcium 9.1 Total Bilirubin 0.2 AST 13 ALT 9 Alkaline Phosphata se 164 H Troponin T Baselin e Troponin T [address] [place] 19.59 H Delta Troponin T -0.41 L Total Protein 7.4 Albumin 4.8 Globulin 2.6 Digoxin 01/31/21 01/31/21 17:44 17:44 WBC 10.7 H RBC 3.86 L Hgb 12.8 Hct 35.6 L MCV 92.2 MCH 33.2 MCHC 36.0 RDW 11.3 L Plt Count 520 H MPV 9.1 Neut % (Auto) 62.0 Lymph % (Auto) 28.4 [place] % (Auto) 7.9 Eos % (Auto) 1.1 Baso % (Auto) 0.4 Neut # (Auto) 6.64 Lymph # (Auto) 3.0 [place] # (Auto) 0.9 Eos # (Auto) 0.1 Baso # (Auto) 0.0 Nucleated RBC % (a uto) 0 Nucleated RBCs # 0.0 PT INR APTT Sodium Potassium Chloride Carbon Dioxide Anion Gap BUN Creatinine GFR Calculation Glucose Calculated Osmolal ity Calcium Total Bilirubin AST ALT Alkaline Phosphata se Troponin T Baselin e 20 H Troponin T [address] [place] Troponin T Total Protein Albumin Globulin Digoxin Vitals: Last Vital Signs Temp 98.3 F 02/01/21 10:57 Pulse 68 02/01/21 11:00 Resp 16 02/01/21 10:57 BP 116/59 02/01/21 10:57 Pulse Ox 93 02/01/21 10:57 Discharge Plan Discharge Patient Disposition: Home Condition: Stable Prescriptions: Continued metoprolol succinate 25 mg tablet extended release 24 hr 12.5 mg PO DAILY Qty: 45 RF: 1 digoxin 125 mcg (0.125 mg) tablet 125 mcg PO DAILY RF: 0 Hold Instructions: Resume on 09/25/19. resume only after follow up with your PCP simvastatin 20 mg tablet 20 mg PO DAILY RF: 0 midodrine 5 mg tablet 5 mg PO TID RF: 0 primidone 50 mg tablet 50 mg PO BID RF: 0 omeprazole 40 mg capsule,delayed release(DR/EC) 40 mg PO DAILY RF: 0 naproxen [Naprosyn] 500 mg tablet 500 mg PO BID PRN (Reason: Pain) RF: 0 tizanidine 4 mg tablet 4 mg PO Q8H PRN (Reason: Spasms) RF: 0 clopidogrel 75 mg tablet 75 mg PO DAILY RF: 0 Hold Instructions: Resume on 09/25/19. check with PCP prior to resuming amitriptyline 25 mg tablet 25 mg PO BEDTIME RF: 0 ferrous sulfate 325 mg (65 mg iron) tablet 325 mg PO BID RF: 0 nitroglycerin 0.4 mg tablet, sublingual 0.4 mg sublingual PRN PRN (Reason: Chest Pain) RF: 0 isosorbide dinitrate 5 mg tablet 2.5 mg PO BID RF: 0 acetaminophen 325 mg Tablet 650 mg PO Q6H PRN (Reason: Mild/Mod Pain Or Temp >/= 101) Qty: 0 RF: 0 Dexilant 60 mg capsule,biphase delayed releas 60 mg PO DAILY RF: 0 Discontinued furosemide 20 mg tablet 20 mg PO DAILY RF: 0 triamterene-hydrochlorothiazid 37.5-25 mg tablet 1 tab PO DAILY RF: 0 Discharge Orders: Discharge Order (Routine); Ordered 02/01/21 Ordered By: Curtis Shirley Referrals: Rae Ruff, TALLOW MAKER [Nurse Practitioner] - 1 week (Please follow-up with Rae Ruff on at 1:45P.M. If you any questions or need to reschedule. Please call ) Laith Patel, DO [Primary Care Provider] - (Please follow-up Dr. Laith Patel on at 2:15P.M. If you have any questions or need to reschedule. Please call ) Discharge Diet: Cardiac Discharge Activity: Limit activity as instructed Patient Instructions: Chronic Kidney Disease (DC), Syncope (DC), Chest Pain Stoplight, Opioid Safety Activity Restrictions/Additional Instructions: Follow-up with Rae Ruff in 7 days cardiology nurse practitioner. Follow-up with your regular window trimmer in [place] in 4 weeks. Recheck BMP in 7 days. Discharge Attestations Time Spent in Discharge Care*: less than 30 min Specific Discharge Activities: educating patient Quality Metrics Clinical Quality Measures During this hospital stay, did patient experience: None Coding Level of Care Code New Pt Acute Chg FW DC note Patient Type New History Detailed Exam Detailed Medical Decision Making Moderate Complexity Diagnoses Chest pain R07.9 Syncope R55 Postural orthostatic tachycardia syndrome I49.8 Chronic kidney disease N18.9
--- NOTE | 2021-02-01 16:51 | PC.RESP ---
SMOKING CESSATION AND PULMONARY REHAB INFORMATION SENT TO PATIENT.
--- NOTE | 2021-02-02 12:16 | PC.SOCIAL ---
hospital discharge follow up call made. Went over discharge instructions with significant other. Aware of follow up appointment with Rae Ruff and cardiology in [place]. Went over medications that needed to be discontinued. Sig other says patient is feeling somewhat better.
== END 2021-02-01 13:13 | disposition home or self-care (01) ==
LOC: ER 20:12 → CCL 20:13 → CSU 21:39
PROVIDERS: Admitting Provider Internal Medicine Cardiovascular Disease; Emergency Provider Emergency Medicine; PCP Family Medicine; Visit Provider Internal Medicine Cardiovascular Disease
DX: R07.9 Chest pain, unspecified (principal); R55 Syncope and collapse; I49.8 Other specified cardiac arrhythmias; N18.9 Chronic kidney disease, unspecified; I12.9 Hypertensive chronic kidney disease with stage 1 through stage 4 chronic kidney disease, or unspecified chronic kidney disease; E78.5 Hyperlipidemia, unspecified; J44.9 Chronic obstructive pulmonary disease, unspecified; F17.210 Nicotine dependence, cigarettes, uncomplicated
CPT/HCPCS: 36415; 71045; 80048; 80053; 80162; 84484; 85025; 85610; 85730; 93005; 93454; 93571; 93572; 96361; 96374; 99285; C1769; C1887; C1894; G0378; J0153; J1644; J2250; J2270; J2930; J3010; J3490; J7030; Q9967

== ENCOUNTER 2021-02-08 13:14 | Emergency (ER) | payer MEDICARE, MEDICAID, SELFPAY ==
--- NOTE | 2021-02-08 13:16 | ECG_ITS ---
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 Measurements Intervals [place] Rate: 74 P: 35 WI: 151 QRS: -6 QRSD: 80 T: 48 QT: 358 QTc: 400 Interpretive Statements SINUS RHYTHM POSSIBLE RIGHT VENTRICULAR CONDUCTION DELAY [RSR (QR) IN V1/V2] Compared to ECG 01/31/2021 18:59:33 T-wave abnormality no longer present Electronically Signed On 02-08-2021 20:10:08 CDT by Reba Mathur M.D. [id number] f
--- NOTE | 2021-02-08 13:16 | XR_ITS ---
WS: [id number] Exam: XR chest 1V portable [id number] Date/Time of Exam: 02/08/2021 1:16 PM Reason For Exam: cp Comparison 01/31/2021 Findings: The lungs are clear and fully expanded. Costophrenic angles are sharp. No infiltrates. Bronchovascula r relief appears normal. Cardiac silhouette is unremarkable. Bony elements are intact. XR/XR chest 1V portable [id number] IMPRESSION: Unremarkable chest radiograph.
[2021-02-08 13:54] VITALS: BP 126/66; PULSE 85; RESP 18; TEMP 36.6; O2SAT 98; BMI 19.9
== END 2021-02-08 16:13 | disposition left against medical advice (07) ==
PROVIDERS: Emergency Provider Family Medicine; PCP Family Medicine
DX: R07.9 Chest pain, unspecified (principal); R53.1 Weakness; M79.602 Pain in left arm; Z53.21 Procedure and treatment not carried out due to patient leaving prior to being seen by health care provider
CPT/HCPCS: 71045; 93005

== ENCOUNTER → 2021-02-09 14:57 | Outpatient (BNVA) | payer MEDICARE, MEDICAID, SELFPAY | PROVIDERS: PCP Family Medicine; Visit Provider Nurse Practitioner Family | DX: I25.10 Atherosclerotic heart disease of native coronary artery without angina pectoris (principal) | CPT/HCPCS: 80048 ==

== ENCOUNTER 2021-03-09 09:18 | Inpatient (IN) | payer MEDICARE, MEDICAID, SELFPAY ==
[2021-03-09] VITALS (44 sets, daily range): BP systolic 97–125; BP diastolic 31–66; PULSE 47–85; RESP 14–24; TEMP 36.7; O2SAT 88–100; BMI 18.3
--- NOTE | 2021-03-09 09:37 | ECG_ITS ---
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 Measurements Intervals [place] Rate: 67 P: 35 RI: 216 QRS: -3 QRSD: 86 T: 15 QT: 368 QTc: 391 Interpretive Statements SINUS RHYTHM WITH FIRST DEGREE AV BLOCK NONSPECIFIC T-WAVE ABNORMALITY INTERPRETATION BASED ON A DEFAULT AGE OF 40 YEARS Compared to ECG 02/08/2021 14:10:43 First degree AV block now present T-wave abnormality now present Electronically Signed On 03-10-2021 23:14:14 CDT by Adria Mcdonald M.D. [email or web address].[employer]era/store/NU/[id number] f
--- NOTE | 2021-03-09 09:37 | XRR_ITS ---
PROCEDURE INFORMATION: Exam: XR Chest Exam date and time: 03/09/2021 9:37 AM Age: 75 years old Clinical indication: Shortness of breath; Patient HX: History--pressure low, pulse high; Additional info: SOB TECHNIQUE: Imaging protocol: XR of the chest. Views: 1 view. Total images: 1 COMPARISON: CR XR chest 1V portable [id number] 02/08/2021 1:19 PM FINDINGS: Lungs: Coarse chronic pulmonary markings. Pleural spaces: Unremarkable. No pleural effusion. No pneumothorax. Heart/Mediastinum: Unremarkable. No cardiomegaly. Bones/joints: Unremarkable. XR/XR chest 1V portable [id number] IMPRESSION: 1. Coarse chronic pulmonary markings. 2. No acute cardiopulmonary process.
--- NOTE | 2021-03-09 09:38 | W.ED.GENADLT ---
Documented by User: KANE Short 03/10/21 07:23 HPI - General Adult General: Chief complaint: General Medical Stated complaint: GENERALIZED WEAKNESS/ UNABLE TO WALK Time Seen by Provider: 03/09/21 09:26 History of Present Illness: HPI narrative: Patient is a 75-year-old female comes to the ED with generalized weakness and shortness of breath on exertion. Past medical history of COPD, CKD and CAD. Patient says symptoms have been going on for over a month currently. She endorses having some shortness of breath when she is up walking and she gets a little lightheaded. She also has generalized weakness. Patient says she was also had some nausea and vomiting over the past couple weeks and has not been able to keep a lot of food and fluids down. Denies any fever, chills, abdominal pain, chest pain, bladder or bowel symptoms. Patient endorses being a daily half pack a day smoker. Associated symptoms: Deny chest pain, dyspnea, headache(s), nausea, rash, palpitations or vomiting Review of Systems Const: Reports: fatigue; Denies: fever(s) or chills Eyes: Denies: change in vision or eye discomfort ENMT: Denies: throat pain, odynophagia, nasal discharge or nasal congestion Card: Reports: lightheadedness and dyspnea on exertion; Denies: chest pain, palpitations, edema, swelling of feet/ankles or orthopnea Resp: Denies: dyspnea, productive cough or non-productive cough GI: Denies: abdominal pain, nausea, vomiting, diarrhea, constipation or hematochezia : Denies: flank pain, dysuria or hematuria Musc: Denies: neck pain, back pain or extremity swelling Skin/Breast: Denies: rash or new lesions Neuro: Denies: headache(s), numbness in extremities or weakness in extremities PFSH ED PFSH: Medical History Anemia COPD (chronic obstructive pulmonary disease) Coronary artery disease Hypokalemia Syncope Tachycardia Surgical History History of 3 sections History of appendectomy History of hernia surgery Family History Father Stroke Denies family history of Diabetes CAD (coronary artery disease) Family history of premature coronary artery disease Social History Quit status (tobacco): not considering quitting Alcohol intake: never Lives independently: Yes Household members: spouse Marital status: Current occupational status: retired History of recent travel: No Current gender identity: Female Physical Exam Const: COMMON NORMALS: no acute distress, patient oriented x3 and alert GENERAL APPEARANCE: cooperative and comfortable NUTRITIONAL APPEARANCE: thin HENMT: COMMON NORMALS: normocephalic HEAD & SCALP: normocephalic MOUTH: Normal oral and palatal mucosa present THROAT: posterior oropharynx normal and uvula midline Eye: COMMON NORMALS: Equal, round and reactive pupils present and conjunctivae normal CONJUNCTIVA: Yes conjunctivae normal PUPIL: Yes Equal, round and reactive pupils present Neck/C-Spine: COMMON NORMALS: supple GENERAL: Yes normal visual inspection Resp: COMMON NORMALS: normal respiratory effort, No retractions, No use of accessory muscles and clear to auscultation bilaterally AUSCULTATION: clear to auscultation bilaterally Cardio: COMMON NORMALS: regular rate, regular rhythm, S1 normal heart sound present, S2 normal heart sound present, No gallops present (Cardio), No clicks present (Cardio), No murmurs present (Cardio) and Peripheral pulses 2+ throughout RATE: regular rate RHYTHM: regular rhythm HEART SOUNDS: S1 normal heart sound present and S2 normal heart sound present PERIPHERAL PULSES: Peripheral pulses 2+ throughout GI: COMMON NORMALS: Normal to inspection, nondistended, normoactive bowel sounds present, Soft to palpation, non-tender and no masses PALPATION: Yes Soft to palpation OTHER: No abdominal tenderness upon palpation. : COMMON NORMALS: Yes no CVA tenderness BLADDER/KIDNEY EXAM: Yes no CVA tenderness Back/Pelvis: COMMON NORMALS: no CVA tenderness Extremity: COMMON NORMALS: normal to inspection Neuro: COMMON NORMALS: patient oriented x3 and moves all extremities SENSORIUM/ORIENTATION: Yes alert Skin: GENERAL SKIN EXAM: dry skin Course Vital Signs: Vital signs: Vital Signs Temperature 98.2 F 03/11/21 12:00 Pulse Rate 71 03/11/21 12:00 Respiratory Rate 23 H 03/11/21 12:00 Blood Pressure 106/52 03/11/21 12:00 Pulse Oximetry 97 03/11/21 12:00 Orthostatic vitals lying down 119/45 pulse 70, sitting 98/45 with a pulse of 71, standing 97/66 with pulse of 85. MDM - General Adult MDM Narrative: Medical decision making narrative: Patient is a 75-year-old female who comes to the ED with worsening shortness of breath on exertion. Patient has a history of CKD, CAD and COPD. Exam was benign. Vitals are stable. Potassium 3.3 and sodium of 130. EKG showed normal sinus rhythm with first-degree AV block with a rate of 67. Patient's digoxin level was high at 3.3. Dr. Pastrana was made aware of the case and he contacted poison control and told them about patient's digoxin level. They wanted us to recheck patient's EKG and digoxin level. Patient's first digoxin level was checked at 8:30 AM and the recheck of digoxin level approximately 5 hours later showed a level of 3.4. Her EKG showed second-degree AV block type I with a rate of 52. Troponins were negative and BNP was 2150. Dr. Caceres then took over patient's case and call the hospitalist to have patient admitted. Lab Data: Attestation: I reviewed the patient's lab results. Labs: Lab Results 03/09/21 03/09/21 03/09/21 08:44 08:44 08:44 WBC 10.9 10^3/uL H 10 ^3/uL (4.0-10.0) RBC 3.35 10^6/uL L 10 ^6/uL (4.1-5.3) Hgb 11.1 g/dL L g/dL (11.5-15.3) Hct 32.6 % L % (37.0-47.0) MCV 97.3 fl fl (81-99) MCH 33.1 pg pg (28.0-34.0) MCHC 34.0 g/dL g/dL (30.0-36.0) RDW 12.3 % % (12.1-15.1) Plt Count 385 10^3/cmm 10^3 /cmm (130-400) MPV 9.8 fL fL (7.4-10.4) Neut % (Auto) 76.9 % % Lymph % (Auto) 13.5 % % Petroleum % (Auto) 6.6 % % Eos % (Auto) 2.2 % % Baso % (Auto) 0.5 % % Neut # (Auto) 8.40 10^3/uL H 10 ^3/uL (1.8-7.7) Lymph # (Auto) 1.5 10^3/uL 10^3/ uL (0.8-4.8) Petroleum # (Auto) 0.7 10^3/uL 10^3/ uL (0.2-0.9) Eos # (Auto) 0.2 10^3/uL 10^3/ uL (0.0-0.8) Baso # (Auto) 0.1 10^3/uL 10^3/ uL (0.0-0.1) Nucleated RBC % (a uto) 0 % % Nucleated RBCs # 0.0 /100WBC /100W BC Sodium 130 mmol/L L mmol /L (136-145) Potassium 3.3 mmol/L L mmol /L (3.5-5.1) Chloride 88 mmol/L L mmol/ L (98-107) Carbon Dioxide 25 mmol/L mmol/L (22-29) Anion Gap 20.3 H (5-19) BUN 34 mg/dL H mg/dL (8-23) Creatinine 2.4 mg/dL H mg/dL (0.5-0.9) GFR Calculation Not Reportable Glucose 98 mg/dL mg/dL (65-115) Calculated Osmolal ity 278 mOsm/kg L mOs m/kg (285-295) Calcium 8.1 mg/dL L mg/dL (8.5-10.5) Magnesium Total Bilirubin 0.2 mg/dL mg/dL (0.15-1.2) AST 14 U/L U/L (0-32) ALT 7 U/L U/L (0-33) Alkaline Phosphata se 131 IU/L H IU/L (35-105) Troponin T Baselin e 40 ng/L H ng/L (0-10) Troponin T 120 Min [place] Troponin T Troponin T Hi Sens 6Hr Troponin T Hi Sens 6Hr [place] NT-Pro-B Natriuret Pep 2150 pg/mL H pg/m L (0-125) Total Protein 7.2 g/dL g/dL (6.6-8.7) Albumin 4.1 g/dL g/dL (3.5-5.2) Globulin 3.1 g/dL g/dL (1.3-4.6) Lipase 43 U/L U/L (13-60) Urine Color Urine Appearance Urine pH Ur Specific Gravit y Urine Protein Urine Glucose (UA) Urine Ketones Urine Blood Urine Nitrate Urine Bilirubin Urine Urobilinogen Ur Leukocyte Uma ase Digoxin 03/09/21 03/09/21 03/09/21 08:44 10:19 11:10 WBC RBC Hgb Hct MCV MCH MCHC RDW Plt Count MPV Neut % (Auto) Lymph % (Auto) Petroleum % (Auto) Eos % (Auto) Baso % (Auto) Neut # (Auto) Lymph # (Auto) Petroleum # (Auto) Eos # (Auto) Baso # (Auto) Nucleated RBC % (a uto) Nucleated RBCs # Sodium Potassium Chloride Carbon Dioxide Anion Gap BUN Creatinine GFR Calculation Glucose Calculated Osmolal ity Calcium Magnesium Total Bilirubin AST ALT Alkaline Phosphata se Troponin T Baselin e Troponin T 120 Min [place] 37.54 ng/L H ng/L (0-10) [place] Troponin T -2.46 ABS# L ABS# (0-10) Troponin T Hi Sens 6Hr Troponin T Hi Sens 6Hr [place] NT-Pro-B Natriuret Pep Total Protein Albumin Globulin Lipase Urine Color Straw (Yellow) Urine Appearance Clear (CLEAR) Urine pH 5 (5-7) Ur Specific Gravit y 1.015 (1.005-1.030) Urine Protein Neg (Negative) Urine Glucose (UA) Norm (Normal) Urine Ketones Negative (Negative) Urine Blood Neg (Negative) Urine Nitrate Negative (Negative) Urine Bilirubin Neg (Negative) Urine Urobilinogen Norm mg/dL mg/dL (Negative) Ur Leukocyte Uma ase Negative (Negative) Digoxin 3.3 ng/mL H* ng/m L (0.6-1.2) 03/09/21 03/09/21 03/10/21 14:20 14:20 04:25 WBC 9.3 10^3/uL 10^3/ uL (4.0-10.0) RBC 2.79 10^6/uL L 10 ^6/uL (4.1-5.3) Hgb 9.3 g/dL L g/dL (11.5-15.3) Hct 28.4 % L % (37.0-47.0) MCV 101.8 fl H fl (81-99) MCH 33.3 pg pg (28.0-34.0) MCHC 32.7 g/dL g/dL (30.0-36.0) RDW 12.5 % % (12.1-15.1) Plt Count 287 10^3/cmm 10^3 /cmm (130-400) MPV 9.8 fL fL (7.4-10.4) Neut % (Auto) 76.3 % % Lymph % (Auto) 12.1 % % Petroleum % (Auto) 7.4 % % Eos % (Auto) 3.3 % % Baso % (Auto) 0.6 % % Neut # (Auto) 7.10 10^3/uL 10^3 /uL (1.8-7.7) Lymph # (Auto) 1.1 10^3/uL 10^3/ uL (0.8-4.8) Petroleum # (Auto) 0.7 10^3/uL 10^3/ uL (0.2-0.9) Eos # (Auto) 0.3 10^3/uL 10^3/ uL (0.0-0.8) Baso # (Auto) 0.1 10^3/uL 10^3/ uL (0.0-0.1) Nucleated RBC % (a uto) 0 % % Nucleated RBCs # 0.0 /100WBC /100W BC Sodium 132 mmol/L L mmol /L (136-145) Potassium 3.4 mmol/L L mmol /L (3.5-5.1) Chloride 95 mmol/L L mmol/ L (98-107) Carbon Dioxide 25 mmol/L mmol/L (22-29) Anion Gap 15.4 (5-19) BUN 29 mg/dL H mg/dL (8-23) Creatinine 2.4 mg/dL H mg/dL (0.5-0.9) GFR Calculation Not Reportable Glucose 78 mg/dL mg/dL (65-115) Calculated Osmolal ity 279 mOsm/kg L mOs m/kg (285-295) Calcium 7.4 mg/dL L mg/dL (8.5-10.5) Magnesium Total Bilirubin AST ALT Alkaline Phosphata se Troponin T Baselin e Troponin T 120 Min [place] Troponin T Troponin T Hi Sens 6Hr 38.85 ng/L H ng/L (0-10) Troponin T Hi Sens 6Hr [place] -1.15 ng/L L ng/L (0-12) NT-Pro-B Natriuret Pep Total Protein Albumin Globulin Lipase Urine Color Urine Appearance Urine pH Ur Specific Gravit y Urine Protein Urine Glucose (UA) Urine Ketones Urine Blood Urine Nitrate Urine Bilirubin Urine Urobilinogen Ur Leukocyte Uma ase Digoxin 3.4 ng/mL H* ng/m L (0.6-1.2) 03/10/21 03/10/21 04:25 04:25 WBC RBC Hgb Hct MCV MCH MCHC RDW Plt Count MPV Neut % (Auto) Lymph % (Auto) Petroleum % (Auto) Eos % (Auto) Baso % (Auto) Neut # (Auto) Lymph # (Auto) Petroleum # (Auto) Eos # (Auto) Baso # (Auto) Nucleated RBC % (a uto) Nucleated RBCs # Sodium 134 mmol/L L mmol /L (136-145) Potassium 3.7 mmol/L mmol/L (3.5-5.1) Chloride 101 mmol/L mmol/L (98-107) Carbon Dioxide 21 mmol/L L mmol/ L (22-29) Anion Gap 15.7 (5-19) BUN 33 mg/dL H mg/dL (8-23) Creatinine 2.0 mg/dL H mg/dL (0.5-0.9) GFR Calculation Not Reportable Glucose 54 mg/dL L mg/dL (65-115) Calculated Osmolal ity 283 mOsm/kg L mOs m/kg (285-295) Calcium 7.6 mg/dL L mg/dL (8.5-10.5) Magnesium 2.3 mg/dL mg/dL (1.7-2.3) Total Bilirubin AST ALT Alkaline Phosphata se Troponin T Baselin e Troponin T 120 Min [place] Troponin T Troponin T Hi Sens 6Hr Troponin T Hi Sens 6Hr [place] NT-Pro-B Natriuret Pep Total Protein Albumin Globulin Lipase Urine Color Urine Appearance Urine pH Ur Specific Gravit y Urine Protein Urine Glucose (UA) Urine Ketones Urine Blood Urine Nitrate Urine Bilirubin Urine Urobilinogen Ur Leukocyte Uma ase Digoxin 3.2 ng/mL H* ng/m L (0.6-1.2) Imaging Data^: CXR: Attestation: I personally reviewed and interpreted this imaging study as follows: Radiologist's impression: [address] [address] XRay Report Signed with Vinicio Patient: Maile López Unit #: [id number] : [id number] Age/Sex: 75 / F ADM Date: 03/09/21 Loc: ER Room/Bed: Attending Dr: Ordering Provider/Ordering MD: Carl Carlin Date of Service: 03/09/21 Procedure(s): XR chest 1V portable [id number] Accession Number(s): [id number] Report Number: [id number] ADDENDUM XR/XR chest 1V portable [id number] Old left rib fractures are evident. Addendum Dictated By: Erlin Bowden MD Addendum Signed By: Erlin Bowden MD Signed Date/Time: 03/09/211047 Addendum Cosigned By: PROCEDURE INFORMATION: Exam: XR Chest Exam date and time: 03/09/2021 9:37 AM Age: 75 years old Clinical indication: Shortness of breath; Patient HX: History--pressure low, pulse high; Additional info: SOB TECHNIQUE: Imaging protocol: XR of the chest. Views: 1 view. Total images: 1 COMPARISON: CR XR chest 1V portable [id number] 02/08/2021 1:19 PM FINDINGS: Lungs: Coarse chronic pulmonary markings. Pleural spaces: Unremarkable. No pleural effusion. No pneumothorax. Heart/Mediastinum: Unremarkable. No cardiomegaly. Bones/joints: Unremarkable. XR/XR chest 1V portable [id number] IMPRESSION: 1. Coarse chronic pulmonary markings. 2. No acute cardiopulmonary process. Dictated By: Erlin Bowden MD Signed By: Erlin Bowden MD Signed Date/Time: 03/09/21 104 DD/ 1047 EKG Data^: EKG 1: Attestation: I personally reviewed and interpreted this EKG as follows: EKG interpretation date: 03/09/21 Interpretation: Sinus rhythm with first-degree AV block. 67 bpm, no ST segment elevation or depression seen. Computer generated interpretation: Chest X-Ray 03/09/21 09:37 IMPRESSION: 1. Coarse chronic pulmonary markings. 2. No acute cardiopulmonary process. ADDENDUM: 03/09/21 1048 Old left rib fractures are evident. EKG 2: Attestation: I personally reviewed and interpreted this EKG as follows: EKG interpretation date: 03/09/21 EKG interpretation time: 12:10 Interpretation: Normal sinus rhythm with first-degree AV block, 72 bpm, no ST segment elevation or depression seen. Computer generated interpretation: Chest X-Ray 03/09/21 09:37 IMPRESSION: 1. Coarse chronic pulmonary markings. 2. No acute cardiopulmonary process. ADDENDUM: 03/09/21 1048 Old left rib fractures are evident. EKG 3: Computer generated interpretation: Chest X-Ray 03/09/21 09:37 IMPRESSION: 1. Coarse chronic pulmonary markings. 2. No acute cardiopulmonary process. ADDENDUM: 03/09/21 1048 Old left rib fractures are evident. Discharge Plan Discharge Patient Disposition: Admitted As Inpatient Admit Provider: Curtis Baldwin Clinical Impression: Elevated digoxin level Condition: Stable Coding Level of Care Code ED Wire Frame Lamp Shade Maker for Chg Fwd Exam Comprehensive Documented by User: Tera Pastrana MD 03/11/21 13:20 HPI - General Adult General: Chief complaint: General Medical Stated complaint: GENERALIZED WEAKNESS/ UNABLE TO WALK Time Seen by Provider: 03/09/21 09:26 [facility] PFSH: Medical History Anemia COPD (chronic obstructive pulmonary disease) Coronary artery disease Hypokalemia Syncope Tachycardia Surgical History History of 3 sections History of appendectomy History of hernia surgery Family History Father Stroke Denies family history of Diabetes CAD (coronary artery disease) Family history of premature coronary artery disease Social History Quit status (tobacco): not considering quitting Alcohol intake: never Lives independently: Yes Household members: spouse Marital status: Current occupational status: retired History of recent travel: No Current gender identity: Female Course Vital Signs: Vital signs: Vital Signs Temperature 98.2 F 03/11/21 12:00 Pulse Rate 71 03/11/21 12:00 Respiratory Rate 23 H 03/11/21 12:00 Blood Pressure 106/52 03/11/21 12:00 Pulse Oximetry 97 03/11/21 12:00 MDM - General Adult MDM Narrative: Medical decision making narrative: Patient care discussed with KANE Short. I reviewed the documentation and reporformed HPI, ROS, PE and agree as documented. Concern for dig toxicity. Discussed with poison control, per toxicology no indication for digibind. EKG progressed to 2nd degree type 1 but otherwise patient condition similar. Required admission for observation due to concern over toxicity vs medication combination reaction given recent addition of diltiazem. Tera Pastrana MD Emergency Medicine Lab Data: Labs: Lab Results 03/09/21 03/09/21 03/09/21 08:44 08:44 08:44 WBC 10.9 10^3/uL H 10 ^3/uL (4.0-10.0) RBC 3.35 10^6/uL L 10 ^6/uL (4.1-5.3) Hgb 11.1 g/dL L g/dL (11.5-15.3) Hct 32.6 % L % (37.0-47.0) MCV 97.3 fl fl (81-99) MCH 33.1 pg pg (28.0-34.0) MCHC 34.0 g/dL g/dL (30.0-36.0) RDW 12.3 % % (12.1-15.1) Plt Count 385 10^3/cmm 10^3 /cmm (130-400) MPV 9.8 fL fL (7.4-10.4) Neut % (Auto) 76.9 % % Lymph % (Auto) 13.5 % % Petroleum % (Auto) 6.6 % % Eos % (Auto) 2.2 % % Baso % (Auto) 0.5 % % Neut # (Auto) 8.40 10^3/uL H 10 ^3/uL (1.8-7.7) Lymph # (Auto) 1.5 10^3/uL 10^3/ uL (0.8-4.8) Petroleum # (Auto) 0.7 10^3/uL 10^3/ uL (0.2-0.9) Eos # (Auto) 0.2 10^3/uL 10^3/ uL (0.0-0.8) Baso # (Auto) 0.1 10^3/uL 10^3/ uL (0.0-0.1) Nucleated RBC % (a uto) 0 % % Nucleated RBCs # 0.0 /100WBC /100W BC Sodium 130 mmol/L L mmol /L (136-145) Potassium 3.3 mmol/L L mmol /L (3.5-5.1) Chloride 88 mmol/L L mmol/ L (98-107) Carbon Dioxide 25 mmol/L mmol/L (22-29) Anion Gap 20.3 H (5-19) BUN 34 mg/dL H mg/dL (8-23) Creatinine 2.4 mg/dL H mg/dL (0.5-0.9) GFR Calculation Not Reportable Glucose 98 mg/dL mg/dL (65-115) Calculated Osmolal ity 278 mOsm/kg L mOs m/kg (285-295) Calcium 8.1 mg/dL L mg/dL (8.5-10.5) Magnesium Total Bilirubin 0.2 mg/dL mg/dL (0.15-1.2) AST 14 U/L U/L (0-32) ALT 7 U/L U/L (0-33) Alkaline Phosphata se 131 IU/L H IU/L (35-105) Troponin T Baselin e 40 ng/L H ng/L (0-10) Troponin T 120 Min [place] Troponin T Troponin T Hi Sens 6Hr Troponin T Hi Sens 6Hr [place] NT-Pro-B Natriuret Pep 2150 pg/mL H pg/m L (0-125) Total Protein 7.2 g/dL g/dL (6.6-8.7) Albumin 4.1 g/dL g/dL (3.5-5.2) Globulin 3.1 g/dL g/dL (1.3-4.6) Lipase 43 U/L U/L (13-60) Urine Color Urine Appearance Urine pH Ur Specific Gravit y Urine Protein Urine Glucose (UA) Urine Ketones Urine Blood Urine Nitrate Urine Bilirubin Urine Urobilinogen Ur Leukocyte Uma ase Digoxin 03/09/21 03/09/21 03/09/21 08:44 10:19 11:10 WBC RBC Hgb Hct MCV MCH MCHC RDW Plt Count MPV Neut % (Auto) Lymph % (Auto) Petroleum % (Auto) Eos % (Auto) Baso % (Auto) Neut # (Auto) Lymph # (Auto) [place] # (Auto) Eos # (Auto) Baso # (Auto) Nucleated RBC % (a uto) Nucleated RBCs # Sodium Potassium Chloride Carbon Dioxide Anion Gap BUN Creatinine GFR Calculation Glucose Calculated Osmolal ity Calcium Magnesium Total Bilirubin AST ALT Alkaline Phosphata se Troponin T Baselin e Troponin T 120 Min [place] 37.54 ng/L H ng/L (0-10) [place] Troponin T -2.46 ABS# L ABS# (0-10) Troponin T Hi Sens 6Hr Troponin T Hi Sens 6Hr [place] NT-Pro-B Natriuret Pep Total Protein Albumin Globulin Lipase Urine Color Straw (Yellow) Urine Appearance Clear (CLEAR) Urine pH 5 (5-7) Ur Specific Gravit y 1.015 (1.005-1.030) Urine Protein Neg (Negative) Urine Glucose (UA) Norm (Normal) Urine Ketones Negative (Negative) Urine Blood Neg (Negative) Urine Nitrate Negative (Negative) Urine Bilirubin Neg (Negative) Urine Urobilinogen Norm mg/dL mg/dL (Negative) Ur Leukocyte Uma ase Negative (Negative) Digoxin 3.3 ng/mL H* ng/m L (0.6-1.2) 03/09/21 03/09/21 03/10/21 14:20 14:20 04:25 WBC 9.3 10^3/uL 10^3/ uL (4.0-10.0) RBC 2.79 10^6/uL L 10 ^6/uL (4.1-5.3) Hgb 9.3 g/dL L g/dL (11.5-15.3) Hct 28.4 % L % (37.0-47.0) MCV 101.8 fl H fl (81-99) MCH 33.3 pg pg (28.0-34.0) MCHC 32.7 g/dL g/dL (30.0-36.0) RDW 12.5 % % (12.1-15.1) Plt Count 287 10^3/cmm 10^3 /cmm (130-400) MPV 9.8 fL fL (7.4-10.4) Neut % (Auto) 76.3 % % Lymph % (Auto) 12.1 % % [place] % (Auto) 7.4 % % Eos % (Auto) 3.3 % % Baso % (Auto) 0.6 % % Neut # (Auto) 7.10 10^3/uL 10^3 /uL (1.8-7.7) Lymph # (Auto) 1.1 10^3/uL 10^3/ uL (0.8-4.8) Petroleum # (Auto) 0.7 10^3/uL 10^3/ uL (0.2-0.9) Eos # (Auto) 0.3 10^3/uL 10^3/ uL (0.0-0.8) Baso # (Auto) 0.1 10^3/uL 10^3/ uL (0.0-0.1) Nucleated RBC % (a uto) 0 % % Nucleated RBCs # 0.0 /100WBC /100W BC Sodium 132 mmol/L L mmol /L (136-145) Potassium 3.4 mmol/L L mmol /L (3.5-5.1) Chloride 95 mmol/L L mmol/ L (98-107) Carbon Dioxide 25 mmol/L mmol/L (22-29) Anion Gap 15.4 (5-19) BUN 29 mg/dL H mg/dL (8-23) Creatinine 2.4 mg/dL H mg/dL (0.5-0.9) GFR Calculation Not Reportable Glucose 78 mg/dL mg/dL (65-115) Calculated Osmolal ity 279 mOsm/kg L mOs m/kg (285-295) Calcium 7.4 mg/dL L mg/dL (8.5-10.5) Magnesium Total Bilirubin AST ALT Alkaline Phosphata se Troponin T Baselin e Troponin T 120 Min [place] Troponin T Troponin T Hi Sens 6Hr 38.85 ng/L H ng/L (0-10) Troponin T Hi Sens 6Hr [place] -1.15 ng/L L ng/L (0-12) NT-Pro-B Natriuret Pep Total Protein Albumin Globulin Lipase Urine Color Urine Appearance Urine pH Ur Specific Gravit y Urine Protein Urine Glucose (UA) Urine Ketones Urine Blood Urine Nitrate Urine Bilirubin Urine Urobilinogen Ur Leukocyte Uma ase Digoxin 3.4 ng/mL H* ng/m L (0.6-1.2) 03/10/21 03/10/21 04:25 04:25 WBC RBC Hgb Hct MCV MCH MCHC RDW Plt Count MPV Neut % (Auto) Lymph % (Auto) Petroleum % (Auto) Eos % (Auto) Baso % (Auto) Neut # (Auto) Lymph # (Auto) Pet[place] # (Auto) Eos # (Auto) Baso # (Auto) Nucleated RBC % (a uto) Nucleated RBCs # Sodium 134 mmol/L L mmol /L (136-145) Potassium 3.7 mmol/L mmol/L (3.5-5.1) Chloride 101 mmol/L mmol/L (98-107) Carbon Dioxide 21 mmol/L L mmol/ L (22-29) Anion Gap 15.7 (5-19) BUN 33 mg/dL H mg/dL (8-23) Creatinine 2.0 mg/dL H mg/dL (0.5-0.9) GFR Calculation Not Reportable Glucose 54 mg/dL L mg/dL (65-115) Calculated Osmolal ity 283 mOsm/kg L mOs m/kg (285-295) Calcium 7.6 mg/dL L mg/dL (8.5-10.5) Magnesium 2.3 mg/dL mg/dL (1.7-2.3) Total Bilirubin AST ALT Alkaline Phosphata se Troponin T Baselin e Troponin T 120 Min [place] Troponin T Troponin T Hi Sens 6Hr Troponin T Hi Sens 6Hr [place] NT-Pro-B Natriuret Pep Total Protein Albumin Globulin Lipase Urine Color Urine Appearance Urine pH Ur Specific Gravit y Urine Protein Urine Glucose (UA) Urine Ketones Urine Blood Urine Nitrate Urine Bilirubin Urine Urobilinogen Ur Leukocyte Uma a[place] Digoxin 3.2 ng/mL H* ng/m L (0.6-1.2) EKG Data^: EKG 1: Attestation: I personally reviewed and interpreted this EKG as follows: EKG interpretation date: 03/09/21 EKG interpretation time: 13:37 Interpretation: 12 lead shows regular rhythm at rate of 64 [place] 318 normal axis Sinus rhythm, 1st degree AV block worse Computer generated interpretation: Chest X-Ray 03/09/21 09:37 IMPRESSION: 1. Coarse chronic pulmonary markings. 2. No acute cardiopulmonary process. ADDENDUM: 03/09/21 1048 Old left rib fractures are evident. EKG 2: Attestation: I personally reviewed and interpreted this EKG as follows: EKG interpretation date: 03/09/21 EKG interpretation time: 10:07 Interpretation: 12 lead shows regular rhythm at rate of 67 [place] 216, QRS 86, QTc 391 normal axis Sinus rhythm, 1st deg AV block Computer generated interpretation: Chest X-Ray 03/09/21 09:37 IMPRESSION: 1. Coarse chronic pulmonary markings. 2. No acute cardiopulmonary process. ADDENDUM: 03/09/21 1048 Old left rib fractures are evident. EKG 3: Attestation: I personally reviewed and interpreted this EKG as follows: EKG interpretation date: 03/09/21 EKG interpretation time: 13:57 Interpretation: 12 lead shows regularly irregular rhyth at rate of 52 [place] variable Normal axis 2nd degree type 1 AV block which is new Computer generated interpretation: Chest X-Ray 03/09/21 09:37 IMPRESSION: 1. Coarse chronic pulmonary markings. 2. No acute cardiopulmonary process. ADDENDUM: 03/09/21 1048 Old left rib fractures are evident. Critical Care Time Critical Care Time: Critical Care Time: Yes Total Critical Care Time: 35 Attestation: This case had a high probability of a clinically significant, sudden, or life threatening deterioration of this patient's condition which required my full and direct attention, intervention and personal management. 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
[2021-03-09 09:47] LABS: Basophils # 0.1 10^3/uL (0.0-0.1); Basophils % 0.5 %; Eosinophils # 0.2 10^3/uL (0.0-0.8); Eosinophils % 2.2 %; Hematocrit 32.6 % (37.0-47.0); Hemoglobin 11.1 g/dL (11.5-15.3); Lymphocytes # 1.5 10^3/uL (0.8-4.8); Lymphocytes % 13.5 %; Mean Corpuscular Hemoglobin 33.1 pg (28.0-34.0); Mean Corpuscular Volume 97.3 fl (81-99); Mean Platelet Volume 9.8 fL (7.4-10.4); Monocytes # 0.7 10^3/uL (0.2-0.9); Monocytes % 6.6 %; Neutrophils % 76.9 %; Nucleated Red Blood Cells % 0 %; Platelet Count 385 10^3/cmm (130-400); Red Blood Count 3.35 10^6/uL (4.1-5.3); Red Cell Distribution Width 12.3 % (12.1-15.1); White Blood Count 10.9 10^3/uL (4.0-10.0)
[2021-03-09 10:30] LABS: Troponin(5th) Baseline 40 ng/L (0-10)
[2021-03-09 10:35] LABS: Alanine Aminotransferase 7 U/L (0-33); Albumin Level 4.1 g/dL (3.5-5.2); Alkaline Phosphatase 131 IU/L (35-105); Anion Gap 20.3 (5-19); Aspartate Amino Transferase 14 U/L (0-32); Blood Urea Nitrogen 34 mg/dL (8-23); Calcium 8.1 mg/dL (8.5-10.5); Carbon Dioxide 25 mmol/L (22-29); Chloride 88 mmol/L (98-107); Creatinine Clr Calc Pharmacy 14.6182; Globulin 3.1 g/dL (1.3-4.6); Glucose 98 mg/dL (65-115); Lipase 43 U/L (13-60); NT Pro B Type Natriuretic Pept 2150 pg/mL (0-125); Osmolality Calculated 278 mOsm/kg (285-295); Potassium 3.3 mmol/L (3.5-5.1); Sodium 130 mmol/L (136-145); Total Bilirubin 0.2 mg/dL (0.15-1.2); Total Protein 7.2 g/dL (6.6-8.7)
[2021-03-09 10:37] LABS: Add Urine Microscopic? NO; Charge for UA Resulting for Rev
[2021-03-09 10:42] LABS: Bilirubin Urine Neg (Negative); Blood Urine Neg (Negative); Glucose Urine UA Norm (Normal); Ketones Urine Negative (Negative); Leukocyte Esterase Urine Negative (Negative); Nitrate Urine Negative (Negative); Protein Urine Neg (Negative); Specific Gravity, Urine 1.015 (1.005-1.030); Urine Appearance Clear (CLEAR); Urine Color Straw (Yellow); Urobilinogen Urine Norm (Negative); pH Urine 5 (5-7)
--- NOTE | 2021-03-09 11:37 | ECG_ITS ---
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 Measurements Intervals [place] Rate: 64 P: 241 AR: 318 QRS: -7 QRSD: 82 T: 30 QT: 378 QTc: 392 Interpretive Statements SINUS RHYTHM WITH FIRST DEGREE AV BLOCK NONSPECIFIC T-WAVE ABNORMALITY Compared to ECG 03/09/2021 10:01:37 No significant changes Electronically Signed On 03-10-2021 23:43:10 CDT by Adria Mcdonald M.D. [id number]
[2021-03-09 12:02] LABS: Troponin 5 2HR 37.54 ng/L (0-10)
[2021-03-09 12:05] LABS: Troponin 5 2HR Delta -2.46 ABS# (0-10)
[2021-03-09] MEDS: potassium chloride ER 20 mEq Tablet PO ×2 (12:22→18:28)
[2021-03-09] MEDS: ondansetron 2 mg/ML SDV 2 mL 4 MG IVP (12:23)
[2021-03-09] MEDS: sodium chloride 0.9% 500 ML 999 ML IV ×2 (13:14→17:04)
[2021-03-09 13:25] LABS: Digoxin 3.3 ng/mL (0.6-1.2)
--- NOTE | 2021-03-09 13:47 | ECG_ITS ---
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 Measurements Intervals [place] Rate: 52 P: [place]: QRS: -16 QRSD: 90 T: 34 QT: 409 QTc: 381 Interpretive Statements Sinus rhythm with a second-degree type I AV block ABNORMAL RHYTHM ECG Compared to ECG 03/09/2021 13:28:28 Second-degree AV block appears to be new Electronically Signed On 03-10-2021 23:20:51 CDT by Adria Mcdonald M.D. [email or web address].[email or web address]/store/NU/[id number] f
[2021-03-09 14:52] LABS: Troponin 5 6HR 38.85 ng/L (0-10)
[2021-03-09 14:53] LABS: Anion Gap 15.4 (5-19); Blood Urea Nitrogen 29 mg/dL (8-23); Calcium 7.4 mg/dL (8.5-10.5); Carbon Dioxide 25 mmol/L (22-29); Chloride 95 mmol/L (98-107); Creatinine Clr Calc Pharmacy 14.6182; Glucose 78 mg/dL (65-115); Osmolality Calculated 279 mOsm/kg (285-295); Potassium 3.4 mmol/L (3.5-5.1); Sodium 132 mmol/L (136-145); Troponin 5 6HR Delta -1.15 ng/L (0-12)
[2021-03-09 14:54] LABS: Digoxin 3.4 ng/mL (0.6-1.2)
--- NOTE | 2021-03-09 15:31 | P.HP_ITS ---
Providers/Chief Complaint Primary Care Provider: Laith Patel Chief Complaint: GENERALIZED WEAKNESS/ UNABLE TO WALK History of Present Illness Maile López is a 75 year old female who presented to the hospital with chief complaint of intractable nausea vomiting. Patient is stating that her symptoms started 2 days ago, she has not able to keep anything down for last 2 days, she has not noticed any fever no recent use of antibiotics. No diarrhea. No change in her vision. No strokelike symptoms noted. No chest pain or shortness of breath. She has been taking digoxin for a long time. Today she started feeling lightheaded and for worsening of symptoms decided to come to the hospital. She was seen at his PCP clinic who recommended her to go to the ER yesterday because of her recent fall and dizzines. She is denying loss of consciousness, syncopal events. She is compliant with her medications, she took diltiazem and digoxin this morning. She is vaccinated for COVID-19, She takes diltiazem for her previous history of A. fib, today when EMS was called she was hypotensive systolic blood pressure in 80s she received 1 L normal saline her blood pressure 110 Review of Systems Const: Reports: chills, body aches and change in weight Eyes: Denies: change in vision, photophobia or eye discomfort ENMT: Denies: throat pain Card: Denies: chest pain Resp: Denies: dyspnea GI: Denies: abdominal pain : Denies: flank pain Musc: Reports: extremity pain Skin/Breast: Denies: rash Neuro: Reports: difficulty walking and dizziness Psych: Denies: anxiety Endo: Denies: polyuria Misael/Lymph: Denies: easy bruising All/Imm: Denies: urticaria Medications/Allergies Home Medications Medication Instructions Recorded Confirmed Last Taken Type amitriptyline 25 mg PO BEDTIME 09/09/19 03/09/21 03/08/21 History clopidogrel 75 mg PO DAILY 09/09/19 03/09/21 03/09/21 History ferrous sulfate 325 mg PO BID 09/09/19 03/09/21 03/09/21 History nitroglycerin 0.4 mg SUBLINGUAL PRN PRN 09/09/19 03/09/21 Unknown History tizanidine 4 mg PO Q8H PRN 09/09/19 03/09/21 09/09/19 History acetaminophen 650 mg PO Q6H PRN #0 tab 09/18/19 03/09/21 Unknown Rx naproxen 500 mg tablet 500 mg PO BID PRN 07/16/20 03/09/21 01/31/21 History primidone 50 mg tablet 50 mg PO BID tab 07/16/20 03/09/21 03/09/21 History digoxin 125 mcg (0.125 mg) tablet 125 mcg PO DAILY tab 01/04/21 03/09/21 03/09/21 History simvastatin 20 mg tablet 20 mg PO DAILY 01/04/21 03/09/21 03/08/21 History Dexilant 60 mg PO DAILY 01/31/21 03/09/21 03/09/21 History diltiazem HCl 60 mg PO DAILY MDD see pharmacy 03/09/21 03/09/21 03/09/21 History comment furosemide [Lasix] 20 mg PO BID 03/09/21 03/09/21 03/09/21 History promethazine 25 mg PO Q6H PRN 03/09/21 03/09/21 Unknown History sulfamethoxazole-trimethoprim 1 tab PO BID 03/09/21 03/09/21 03/09/21 History [Bactrim DS] Allergies Allergy/AdvReac Type Severity Reaction Status Date / Time iodine Allergy Unknown Verified 03/09/21 09:27 Penicillins Allergy ALGY-Anaphy Verified 03/09/21 09:27 laxis PFSH Acute PFSH: Medical History Anemia COPD (chronic obstructive pulmonary disease) Coronary artery disease Hypokalemia Syncope Tachycardia Surgical History History of 3 sections History of appendectomy History of hernia surgery Family History Father Stroke Denies family history of Diabetes CAD (coronary artery disease) Family history of premature coronary artery disease Social History Quit status (tobacco): not considering quitting Alcohol intake: never Lives independently: Yes Household members: spouse Marital status: Current occupational status: retired History of recent travel: No Current gender identity: Female Vitals/I&O/Wt Last Vital Signs Temp 98.0 F 03/09/21 09:21 Pulse 70 03/09/21 10:05 Resp 18 03/09/21 09:21 BP 110/49 03/09/21 15:15 Pulse Ox 96 03/09/21 15:15 Weight last 48 hrs Weight 42.638 kg Physical Exam Narrative: EXAM NARRATIVE: Pleasant early female Clinically looks dehydrated S1, S2 sinus bradycardia No murmur appreciated Abdomen soft Bowel sounds sluggish Lower symmetry no edema Bilateral breath sounds without adventitious rhonchi or crackles Saturating well on room air EOMI, PERRLA No neurological deficit Data : 03/09/21 08:44 03/09/21 14:20 A&P Assessment and plan (1) Acute kidney injury superimposed on chronic kidney disease: Status: Acute (2) Postural orthostatic tachycardia syndrome: Status: Acute (3) Coronary artery disease: Status: Acute (4) Hypotension: Status: Acute Qualifiers: Hypotension type: unspecified hypotension type Qualified Code(s): I95.9 - Hypotension, unspecified (5) Orthostatic dizziness: Status: Acute (6) Elevated digoxin level: Status: Acute (7) NSVT (nonsustained ventricular tachycardia): Status: Acute Additional A&P Information Dizziness Dehydration Recurrent nausea vomiting Concern from digitalis toxicity Poison control did recommend IV fluid hydration holding digoxin and Cardizem m onitor overnight Did not recommend DigiFab however in case of worsening of symptoms my threshold to start DigiFab will be low Currently heart rate 65, she is getting family demo bolus in total she will get 1.5L fluid in the ER She does get tachycardic on ambulation, will monitor on telemetry for now Her BNP is high however no active sign of congestive heart failure clinically, her troponins are trending down Hypocalcemia: We will give 1 dose of calcium gluconate Acute on chronic kidney disease secondary to dehydration recurrent nausea vomiting We will keep her on IV fluids overnight Avoid Lasix Hyponatremia and hypokalemia consistent with dehydration and vomiting: Repleted PT evaluation in the morning for weakness and lethargy she is vaccinated for COVID-19 Cardiac diet Full code DVT prophylaxis Heparin Attestations Medical Necessity Statement*: Anticipating discharge within 48 hours Time Spent in Patient Care: Greater than 35 minutes Coding Level of Care Code Acute 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
--- NOTE | 2021-03-09 15:37 | ECG_ITS ---
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 Measurements Intervals [place] Rate: 69 P: 28 ME: 313 QRS: 2 QRSD: 87 T: 13 QT: 373 QTc: 401 Interpretive Statements SINUS RHYTHM WITH FIRST DEGREE AV BLOCK INTERPRETATION BASED ON A DEFAULT AGE OF 40 YEARS Compared to ECG 03/09/2021 13:55:50 First degree AV block now present Atrial fibrillation no longer present Electronically Signed On 03-10-2021 23:44:47 CDT by Adria Mcdonald M.D. [id number] f
[2021-03-09] MEDS: heparin 5,000 unit/mL INJ 1 mL 5000 UNIT SUBCUT (18:27)
[2021-03-09] MEDS: calcium gluconate 0.1 gm/mL 10% SDV 10mL 1 GM IVP (18:27)
[2021-03-09] MEDS: primidone 50 mg Tablet PO (18:28)
[2021-03-09] MEDS: sodium chloride 0.9% 1,000 ML 75 ML IV (18:36)
--- NOTE | 2021-03-09 19:22 | PC.NURSE ---
Admit Note Patient admitted to CSU room 106 from ER via wheelchair. Covering service notified. Patient presents with []. Orders reviewed & will continue to monitor. Patient and/or energy conservation representative oriented to environment, equipment, and informed of the following as found in the admission booklet: patient rights & responsibilities, visitor policy, hand and respiratory hygiene practice. Other education includes: call light use and response times and plan of care. Patient and/or energy conservation representative verbalized understanding.
--- NOTE | 2021-03-09 20:05 | PC.NURSE ---
Received report from MERRY Ron. Patient resting in bed with eyes closed. Eyes open spontaneously. Patient recently arrived from ED. Admission completed at this time. Patient denies pain or needs. No distress observed.
[2021-03-10] VITALS (10 sets, daily range): BP systolic 90–116; BP diastolic 41–55; PULSE 65–81; RESP 12–27; TEMP 36.6–36.8; O2SAT 93–96
[2021-03-10 04:54] LABS: Basophils # 0.1 10^3/uL (0.0-0.1); Basophils % 0.6 %; Eosinophils # 0.3 10^3/uL (0.0-0.8); Eosinophils % 3.3 %; Hematocrit 28.4 % (37.0-47.0); Hemoglobin 9.3 g/dL (11.5-15.3); Lymphocytes # 1.1 10^3/uL (0.8-4.8); Lymphocytes % 12.1 %; Mean Corpuscular HGB Conc 32.7 g/dL (30.0-36.0); Mean Corpuscular Hemoglobin 33.3 pg (28.0-34.0); Mean Corpuscular Volume 101.8 fl (81-99); Mean Platelet Volume 9.8 fL (7.4-10.4); Monocytes # 0.7 10^3/uL (0.2-0.9); Monocytes % 7.4 %; Neutrophils % 76.3 %; Nucleated Red Blood Cells % 0 %; Platelet Count 287 10^3/cmm (130-400); Red Blood Count 2.79 10^6/uL (4.1-5.3); Red Cell Distribution Width 12.5 % (12.1-15.1); White Blood Count 9.3 10^3/uL (4.0-10.0)
[2021-03-10 05:21] LABS: Anion Gap 15.7 (5-19); Blood Urea Nitrogen 33 mg/dL (8-23); Calcium 7.6 mg/dL (8.5-10.5); Carbon Dioxide 21 mmol/L (22-29); Chloride 101 mmol/L (98-107); Glucose 54 mg/dL (65-115); Magnesium 2.3 mg/dL (1.7-2.3); Osmolality Calculated 283 mOsm/kg (285-295); Potassium 3.7 mmol/L (3.5-5.1); Sodium 134 mmol/L (136-145)
[2021-03-10 05:29] LABS: Digoxin 3.2 ng/mL (0.6-1.2)
[2021-03-10] MEDS: heparin 5,000 unit/mL INJ 1 mL 5000 UNIT SUBCUT ×2 (05:50→17:57)
[2021-03-10] MEDS: sodium chloride 0.9% 1,000 ML 75 ML IV ×2 (05:51→19:29)
--- NOTE | 2021-03-10 06:16 | PC.NURSE ---
Shift Note Frequent safety and comfort rounds continue. Orders and/or nursing care completed as indicated. Patient monitored for response to intervention and treatment(s). Education provided includes heparin. Patient verbalized understanding. Patient denies pain or other needs. Reports sleep well this evening. Received critical lab value for digoxin of 3.2 which is down from 3.4. Informed Dr See. No new orders received. Will continue to monitor.
--- NOTE | 2021-03-10 08:30 | PC.NURSE ---
Pt lying in bed talking to staff. Pt resp even and non-labored no distress noted. Pt A&O x 4, Pt had no c/o pain or discomfort at the present time. No needs voiced. Call light in reach.
[2021-03-10] MEDS: clopidogrel 75 mg Tablet PO (09:29)
[2021-03-10] MEDS: primidone 50 mg Tablet PO ×2 (09:29→17:57)
--- NOTE | 2021-03-10 11:16 | PM.PN ---
Subjective Subjective: Interval history: Patient is still dizzy lightheaded positive orthostasis, she had presyncopal event when PT tried to work with her Did notice bradycardia overnight on telemetry Minimum heart rate 47 Blood pressure stable no active chest pain Angiogram 01/31/2021 * Left Main has no disease. * Right Coronary Artery has no disease. * Proximal Left Anterior Descending: moderate 50% stenosis, TRANG: 3 flow. * Proximal Circumflex: moderate 50% stenosis, TRANG: 3 flow. * Mid Circumflex: obstructive 60% stenosis, TRANG: 3 flow. * Coronary angiography shows co-dominance. Vitals/I&O/Wt Last Vital Signs Temp 98.1 F 03/10/21 07:55 Pulse 81 03/10/21 07:55 Resp 21 H 03/10/21 07:55 BP 106/46 03/10/21 07:55 Pulse Ox 93 03/10/21 07:55 03/09/21 03/10/21 03/10/21 22:59 06:59 14:59 Intake Total 1120 / 1120 1060 / 2180 480 / 480 Output Total 250 / 250 Balance 1120 / 1120 810 / 1930 480 / 480 Weight last 48 hrs Weight 42.638 kg Physical Exam Narrative: EXAM NARRATIVE: Patient does become symptomatic on ambulation Lightheaded no neurological deficit Bradycardia noted on telemetry overnight S1, S2 sinus rhythm Clinically looks dehydrated Still complaining of nausea No diarrhea or vision changes Bilateral breath sounds without adventitious rhonchi or crackles, saturating well on room air Data : 03/10/21 04:25 03/10/21 04:25 A&P Assessment and plan (1) Elevated digoxin level: Status: Acute (2) Acute kidney injury superimposed on chronic kidney disease: Status: Acute (3) Coronary artery disease: Status: Acute (4) Chronic kidney disease: Status: Acute (5) Postural orthostatic tachycardia syndrome: Status: Acute (6) Hypotension: Status: Acute Qualifiers: Hypotension type: unspecified hypotension type Qualified Code(s): I95.9 - Hypotension, unspecified (7) Orthostatic dizziness: Status: Acute (8) NSVT (nonsustained ventricular tachycardia): Status: Acute Additional A&P Information Elevated digoxin level Presyncope Positive orthostatics CHRISTELLE Active nausea Patient is not stable to be discharged today, still having presyncopal events, orthostatic positive, not able to work with physical therapy today Digoxin level still high which I believe is due to acute on chronic kidney disease, creatinine is 2.0, continue IV fluid hydration No need of DigiFab for now, overnight bradycardia noted however no malignant arrhythmias noted, EKG not consistent with atrial tachycardia with slow ventricular spots pattern which we see with digoxin toxicity Patient is noncompliant active vision changes Poison control did recommend watching conservatively holding diltiazem and digoxin, blood pressure is stable since yesterday I would like to keep her here 1 more day change observation to inpatient Hypocalcemia: Repleted Hypokalemia: Repleted 3.7 K today, magnesium 2.3 Full code DVT prophylaxis Heparin Cardiac diet Attestations Medical Necessity Statement*: Continue medical management for above-mentioned reasons Time Spent in Patient Care: 16 - 35 minutes Coding Level of Care Code Acute Floodplain Manager for Chg Fwd Diagnoses Elevated digoxin level R78.89 Acute kidney injury superimposed on chronic kidney disease N17.9; N18.9 Coronary artery disease I25.10 Chronic kidney disease N18.9 Postural orthostatic tachycardia syndrome I49.8 Hypotension I95.9 Hypotension type: unspecified hypotension type Orthostatic dizziness R42 NSVT (nonsustained ventricular tachycardia) I47.2
[2021-03-10] MEDS: potassium chloride ER 20 mEq Tablet 40 MEQ PO (12:41)
[2021-03-10] MEDS: lactated ringers 500 ML 999 ML IV (12:43)
--- NOTE | 2021-03-10 17:56 | USCV_ITS ---
Maile López Age: 75 Gender: F : 1945 Exam Date: 03/10/2021 07:49 Ordering Phys: Curtis Baldwin MD Technologist: Betzaida Singh Exam Location: [facility] [place] Indication: DIG TOXICITY BP: 106 / 49 HR: 77 Rhythm: Sinus Technical Quality: Adequate MEASUREMENTS (Male / Female) Normal Values 2D ECHO LV Diastolic Diameter PLAX 3.8 cm 4.2 - 5.9 / 3.9 - 5.3 cm LV Systolic Diameter PLAX 2.4 cm IVS Diastolic Thickness 1.4 cm 0.6 - 1.0 / 0.6 - 0.9 cm IVS Systolic Thickness 2.0 cm LVPW Diastolic Thickness 1.4 cm 0.6 - 1.0 / 0.6 - 0.9 cm LVPW Systolic Thickness 1.8 cm LVOT Diameter 2.0 cm LV Ejection Fraction 2D Teich 65.7 % LV Ejection Fraction MOD 2C 51.6 % LV Ejection Fraction 2C AL 52.5 % LA Diameter 2.3 cm LA Width 1.9 cm LA Height 3.2 cm RA Width 2.6 cm RA Height 3.3 cm Aorta at Sinotubular Diameter 1.7 cm DOPPLER AV Peak Velocity 146.0 cm/s LVOT Peak Velocity 130.0 cm/s AV Area Cont Eq vti 2.4 cm squared AV Area Cont Eq pk 2.8 cm squared MV Peak Velocity 100.0 cm/s MV Area PHT 3.1 cm squared Mitral E to A Ratio 0.7 MV E' Velocity 43.0 cm/s Mitral E to MV E' Ratio 10.9 Mitral E to LV E' Lateral Ratio 9.0 Mitral E to LV E' Septal Ratio 14.2 TR Peak Velocity 259.9 cm/s TR Peak Gradient 27.0 mmHg TR Mean Velocity 178.5 cm/s TR Mean Gradient 15.5 mmHg TR Velocity Time Integral 58.8 cm TV Peak E Velocity 56.0 cm/s Right Atrial Pressure 15.0 mmHg Pulmonary Artery Systolic Pressu 42.0 mmHg FINDINGS Left Ventricle Normal left ventricular size and systolic function, EF 60 %. No regional wall motion abnormalities. Mild left ventricular hypertrophy. Grade I/IV diastolic dysfunction (abnormal relaxation filling pattern), normal to mildly elevated filling pressures. Right Ventricle The right ventricle is normal in size and function. Right Atrium Normal right atrial size. Left Atrium The left atrium is normal in size. Mitral Valve Trace mitral valve regurgitation. Aortic Valve Thickened aortic valve. Tricuspid Valve Trace to mild tricuspid valve regurgitation. Pulmonic Valve No gross abnormalities noted Pericardium Normal pericardium without effusion. Aorta Normal ascending aorta dimension. CONCLUSIONS Normal left ventricular size and systolic function, EF 60 %. No regional wall motion abnormalities. Mild left ventricular hypertrophy. Grade I/IV diastolic dysfunction (abnormal relaxation filling pattern), normal to mildly elevated filling pressures. Trace mitral valve regurgitation. Trace to mild tricuspid valve regurgitation. Estimated pulmonary artery peak systolic pressure of 42 mmHg There is no pericardial effusion. There are no intracardiac masses. Compared to the study from 09/10/2019, there may not be a significant change Dr Adria Mcdonald MD FACC (Electronically Signed) Final Date: 10 March 2021 19:30 S
--- NOTE | 2021-03-10 20:38 | PC.NURSE ---
Dr. Rolle notified of patient asking for something to help with diarrhea. Patient had diarrhea x3 during day shift and just now had another episode. Dr. See ordered to get c-diff. This was obtained. Ordered we will not be giving any medications for diarrhea until c-diff results are back.
[2021-03-11] VITALS (8 sets, daily range): BP systolic 106–136; BP diastolic 48–60; PULSE 63–72; RESP 12–23; TEMP 36.8; O2SAT 95–97
--- NOTE | 2021-03-11 02:59 | PC.NURSE ---
Addendum entered by Akiko Quezada RN 03/11/21 03:01: Notified that patient is on Heparin SQ for VTE. Original Note: Dr. See notified of negative c-diff and positive fecal occult blood.
[2021-03-11 04:17] LABS: Anion Gap 11.6 (5-19); Blood Urea Nitrogen 18 mg/dL (8-23); Calcium 7.5 mg/dL (8.5-10.5); Carbon Dioxide 22 mmol/L (22-29); Chloride 106 mmol/L (98-107); Glucose 76 mg/dL (65-115); Osmolality Calculated 283 mOsm/kg (285-295); Potassium 3.6 mmol/L (3.5-5.1); Sodium 136 mmol/L (136-145)
[2021-03-11 04:20] LABS: Creatinine Clr Calc Pharmacy 26.9875
[2021-03-11 04:28] LABS: Digoxin 1.9 ng/mL (0.6-1.2)
--- NOTE | 2021-03-11 05:21 | PC.NURSE ---
Dr. See notified of negative c-diff result and positive for occult blood. Ordered to non-admin SQ Heparin that is due at this time. Ordered to check Hemoglobin.
[2021-03-11 05:49] LABS: Basophils % 0.7 %; Eosinophils # 0.4 10^3/uL (0.0-0.8); Eosinophils % 6.7 %; Hematocrit 24.3 % (37.0-47.0); Lymphocytes # 1.7 10^3/uL (0.8-4.8); Lymphocytes % 29.9 %; Mean Corpuscular HGB Conc 32.9 g/dL (30.0-36.0); Mean Corpuscular Hemoglobin 33.3 pg (28.0-34.0); Mean Corpuscular Volume 101.3 fl (81-99); Mean Platelet Volume 10.2 fL (7.4-10.4); Monocytes # 0.5 10^3/uL (0.2-0.9); Monocytes % 9.7 %; Neutrophils # 2.93 10^3/uL (1.8-7.7); Neutrophils % 52.8 %; Nucleated Red Blood Cells % 0 %; Platelet Count 261 10^3/cmm (130-400); Red Cell Distribution Width 12.5 % (12.1-15.1); White Blood Count 5.6 10^3/uL (4.0-10.0)
--- NOTE | 2021-03-11 06:32 | PC.NURSE ---
Shift Note Frequent safety and comfort rounds continue. Orders and/or nursing care completed as indicated. Patient monitored for response to intervention and treatment(s).
[2021-03-11] MEDS: primidone 50 mg Tablet PO (09:58)
[2021-03-11] MEDS: clopidogrel 75 mg Tablet PO (09:58)
[2021-03-11] MEDS: sodium chloride 0.9% 1,000 ML 75 ML IV (10:02)
--- NOTE | 2021-03-11 11:09 | CT_ITS ---
WS: [id number] CT ABDOMEN PELVIS TECHNIQUE: Noncontrast CT of the abdomen and pelvis with coronal and sagittal reformatted images. CLINICAL INFORMATION: Diarrhea and anemia COMPARISON: CT September 09, 2019 DLP: 446.[address] scans at [facility] use at least one of these dose optimization techniques: automated e xposure control; mA and/or kV adjustment per patient size (includes targeted exams where dose is matc hed to clinical indication); or iterative reconstruction. FINDINGS: Noncontrast liver is normal. Tiny bilateral pleural effusions with bibasilar atelectasis. Adrenal gla nds are normal. Normal noncontrast spleen. Normal GE junction. Distended stomach with food products. Noncontrast pancreas is normal. Normal noncontrast kidneys. No hydronephrosis. Normal caliber abdominal aorta. No abdominal or pelvic lymphadenopathy. Normal sigmoid colon. Air-flu id levels. in slightly distended transverse colon. Normal caliber small bowel. No pelvic or inguinal lymphadenopathy. Normal lumbar spine. CT/CT abdomen pelvis wo con [id number] IMPRESSION: 1. Small bilateral pleural effusions with bibasilar atelectasis. 2. Cholelithiasis. No gallbladder wall thickening or pericholecystic fluid. 3. Normal noncontrast liver. 4. No hydronephrosis in either kidney. 5. Small esophageal hiatal hernia with distended stomach with food products. 6. Slightly distended transverse colon with air-fluid levels likely due to ile us. No evidence of high-grade obstruction. 7. No other significant findings.
[2021-03-11 11:31] LABS: Hematocrit 25.7 % (37.0-47.0); Hemoglobin 8.4 g/dL (11.5-15.3)
--- NOTE | 2021-03-11 14:08 | PC.CHAP ---
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 visit [] Patient/Family/Request visit [] Outpatient visit [] Follow-up visit [] Physician referral [] Code/Alert [x] Routine visit [] Staff referral [] Actively dying [] Patient sleeping [] Family support [] [] Out of room [] Palliative care [] [x] Receiving care in room [] Pre-surgical visit [] Trauma [] Long length of stay [] ICU visit [] Other: Relational/Emotional Strength [x] Patient feels connected with others/family/visitors/staff [] Distress [] Loneliness/isolation [] Abandonment Spirituality of Patient [x] Person of Lizeth [] Attends Rastafari of their Lizeth [x] Believes in Prayer [] Reads Bible or Tenriism materials [] There are Spiritual issues to be addressed Business Investor Interventions [x] Prayer [x] Active listening [x] Non-anxious presence [x] Spiritual/emotional support [] Crisis/trauma care [x] Spiritual counseling [] Bereavement support [] Provided bereavement packet [] Provided Bible/devotional materials [] Provided toy/stuffed animal, coloring book to patient or family member [] Provided Communion [] Anointing/[place] [] Salvation [x] Completed spiritual assessment [] Other: Impact on Illness or Injury [] Angry [] Fearful [] Anxious [] Often cries [] Exhaustion [] Unable to work [] Unable to attend mormon [] Unable to walk/stand [] Unable to read [] Unable to drive [] Unable to eat/drink [] Unable to sleep [] Unable to be with family [] Patient intubated [] Other: Summary Came for a check feels better4 not sure about brecovery at this time wants to go home when doctor says it is OK Time spent with patient 10 mins
--- NOTE | 2021-03-11 16:00 | PC.NURSE ---
Pt lying in bed talking to on phone. Pt had no c/o pain or discomfort at the present time. no needs voiced. Call light in reach. Will continue to monitor.
--- NOTE | 2021-03-11 16:17 | P.PN_ITS ---
Subjective Subjective: Interval history: Overnight patient did develop diarrhea, C. difficile panel negative FOBT positive Hemoglobin 8, repeat H&H 8.4 Patient is not endorsing abdominal pain, hemodynamically stable she is able to walk independently without any assistance no presyncope or lightheadedness today Heart rate has been fluctuating between 60 to 70s, Poison control has signed off digoxin level has come down We will go home with event monitor Today CT abdomen pelvis was requested which showed ileus transverse colon I did evaluate patient multiple times today Vitals/I&O/Wt Last Vital Signs Temp 98.2 F 03/11/21 12:00 Pulse 71 03/11/21 12:00 Resp 23 H 03/11/21 12:00 BP 106/52 03/11/21 12:00 Pulse Ox 97 03/11/21 12:00 03/11/21 03/11/21 03/11/21 06:59 14:59 22:59 Intake Total 700 / 2660 1000 / 1000 Output Total 250 / 250 Balance 700 / 2660 750 / 750 Physical Exam Narrative: EXAM NARRATIVE: Patient was able to communicate without any difficulty She stood up walk to the bathroom Romberg sign negative No neurological deficit No neuropathy Muscle wasting noted of proximal muscles otherwise no other acute focal deficits EOMI, PERRLA Awake alert oriented x3 Abdomen soft nontender bowel sounds present Bilateral breath sounds without adventitious rhonchi or crackles Clinically does look dehydrated no audible stridor or wheezing saturating well on room air Data : 03/11/21 11:22 03/11/21 03:29 Micro: Microbiology 03/10/21 20:30 C.difficile Toxin B Gene (PCR) - Final Stool - Stool Aspirate Occult Blood (FIT) - Final A&P Assessment and plan (1) Elevated digoxin level: Status: Acute (2) Acute kidney injury superimposed on chronic kidney disease: Status: Acute (3) Coronary artery disease: Status: Acute (4) Orthostatic dizziness: Status: Acute (5) Ileus: Status: Acute (6) Melanotic stools: Status: Acute Additional A&P Information Active issues Melanotic stool Acute blood loss anemia Deconditioning Dehydration Ileus Diarrhea Hiatal hernia Plan:- I will keep patient 1 more day monitor H&H start her on Protonix we will keep her n.p.o. I do suspect at the time of presentation she was hemoconcentrated because of intractable nausea vomiting, her H&H trend from previous year was reviewed as well, her baseline hemoglobin seems to be around 8-9 Hemodynamically she has been stable, if there is further drop in hemoglobin will request EGD otherwise it can be done outpatient Digoxin level has improved no more episode of bradycardia heart rate has improved as well Poison control has signed off Patient did well with physical therapy, on my second evaluation she was able to get up on her own Romberg sign negative no active signs of neurological deficits, she is able to squat as well no lightheadedness or dizziness or signs of orthostasis Diarrhea: C. difficile ruled out, FOBT positive Will request B12 levels Full code Consulted Dr. 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
[2021-03-11 18:17] LABS: Vitamin B12 181 pg/mL (232-1245)
[2021-03-12] VITALS (11 sets, daily range): BP systolic 108–136; BP diastolic 42–71; PULSE 60–66; RESP 10–20; TEMP 36.2–36.8; O2SAT 93–97
[2021-03-12] MEDS: sodium chloride 0.9% 1,000 ML 75 ML IV (00:19)
[2021-03-12 04:53] LABS: Basophils % 0.5 %; Eosinophils # 0.4 10^3/uL (0.0-0.8); Eosinophils % 7.3 %; Hematocrit 24.5 % (37.0-47.0); Lymphocytes # 1.7 10^3/uL (0.8-4.8); Lymphocytes % 28.4 %; Mean Corpuscular HGB Conc 32.7 g/dL (30.0-36.0); Mean Corpuscular Hemoglobin 32.9 pg (28.0-34.0); Mean Corpuscular Volume 100.8 fl (81-99); Mean Platelet Volume 10.1 fL (7.4-10.4); Monocytes # 0.4 10^3/uL (0.2-0.9); Monocytes % 6.8 %; Neutrophils # 3.35 10^3/uL (1.8-7.7); Neutrophils % 56.8 %; Nucleated Red Blood Cells % 0 %; Platelet Count 254 10^3/cmm (130-400); Red Blood Count 2.43 10^6/uL (4.1-5.3); Red Cell Distribution Width 12.4 % (12.1-15.1); White Blood Count 5.9 10^3/uL (4.0-10.0)
[2021-03-12 05:09] LABS: Lactate (Lactic Acid level) 0.7 mmol/L (0.5-2.2)
[2021-03-12 05:13] LABS: Anion Gap 12.4 (5-19); Blood Urea Nitrogen 8 mg/dL (8-23); Calcium 7.5 mg/dL (8.5-10.5); Carbon Dioxide 21 mmol/L (22-29); Chloride 107 mmol/L (98-107); Glucose 77 mg/dL (65-115); Osmolality Calculated 281 mOsm/kg (285-295); Potassium 3.4 mmol/L (3.5-5.1); Sodium 137 mmol/L (136-145)
--- NOTE | 2021-03-12 06:31 | PM.CONSULT ---
Providers/Reason For Consult Consulting Physician/Specialty*: Endoscopist Reason for Consult*: Acute anemia, melena Attending Physician: Curtis Baldwin MD Primary Care Provider: Laith Patel History of Present Illness History of Present Illness Maile López is a 75 year old female who presented to the hospital with a initial complaint of intractable nausea and vomiting. As a part of her initial evaluation, the symptoms were felt to be due to toxic levels of digoxin. As her digoxin levels have improved, her symptoms of nausea and vomiting have also improved. Unfortunately, she also began having diarrhea. Her diarrhea was dark and tarry at times. It was C. difficile negative. During the same time she was having her diarrhea, her blood counts also begin to drop. On admission her hemoglobin was noted to be 11.1. On the subsequent day it was 9.3. Yesterday it was 8.4, and this morning is 8.0. Her fecal occult blood test was positive. The patient reports having had an EGD before in the past. She said it was a horrible experience. She does not remember how long ago that happened. She also states that she had a recent colonoscopy as well but could not tell me when. Review of Systems Const: Reports: body aches and change in appetite (Her appetite has improved since being admitted to the hospital) Card: Denies: chest pain Resp: Denies: dyspnea GI: Reports: abdominal pain (She had some pain yesterday, but it has resolved.), heartburn, diarrhea, excessive flatus and melena; Denies: nausea, vomiting, hematemesis, coffee ground emesis, dysphagia, constipation or rectal pain : Denies: dysuria Musc: Reports: back pain Skin/Breast: Denies: rash Neuro: Reports: weakness in extremities (She thinks this is getting better) Psych: Denies: anxiety Endo: Reports: tired all the time Misael/Lymph: Reports: easy bruising; Denies: easy bleeding Meds/Allergies Home Medications and Allergies Home Medications Medication Instructions Recorded Confirmed Last Taken Type amitriptyline 25 mg PO BEDTIME 09/09/19 03/09/21 03/08/21 History clopidogrel 75 mg PO DAILY 09/09/19 03/09/21 03/09/21 History ferrous sulfate 325 mg PO BID 09/09/19 03/09/21 03/09/21 History nitroglycerin 0.4 mg SUBLINGUAL PRN PRN 09/09/19 03/09/21 Unknown History tizanidine 4 mg PO Q8H PRN 09/09/19 03/09/21 09/09/19 History acetaminophen 650 mg PO Q6H PRN #0 tab 09/18/19 03/09/21 Unknown Rx naproxen 500 mg tablet 500 mg PO BID PRN 07/16/20 03/09/21 01/31/21 History primidone 50 mg tablet 50 mg PO BID tab 07/16/20 03/09/21 03/09/21 History digoxin 125 mcg (0.125 mg) tablet 125 mcg PO DAILY tab 01/04/21 03/09/21 03/09/21 History simvastatin 20 mg tablet 20 mg PO DAILY 01/04/21 03/09/21 03/08/21 History Dexilant 60 mg PO DAILY 01/31/21 03/09/21 03/09/21 History diltiazem HCl 60 mg PO DAILY MDD see pharmacy 03/09/21 03/09/21 03/09/21 History comment furosemide [Lasix] 20 mg PO BID 03/09/21 03/09/21 03/09/21 History promethazine 25 mg PO Q6H PRN 03/09/21 03/09/21 Unknown History sulfamethoxazole-trimethoprim 1 tab PO BID 03/09/21 03/09/21 03/09/21 History [Bactrim DS] Allergies Allergy/AdvReac Type Severity Reaction Status Date / Time iodine Allergy Unknown Verified 03/09/21 09:27 Penicillins Allergy ALGY-Anaphy Verified 03/09/21 09:27 laxis Current Medications Current Medications Generic Name Dose Route Start Last Admin Trade Name Freq PRN Reason Stop Dose Admin Clopidogrel Bisulfate 75 mg 03/10/21 09:00 03/11/21 09:58 Clopidogrel 75 Mg Tablet PO 75 mg DAILY DARWIN Administration Heparin Sodium (Beef Lung) 5,000 unit 03/09/21 18:30 03/11/21 05:21 Heparin 5,000 Unit/Ml Inj 1 Ml SUBCUT Not Given Q12H DARWIN Sodium Chloride 1,000 mls @ 75 mls/hr 03/09/21 17:56 03/12/21 00:19 Sodium Chloride 0.9% IV 75 mls/hr .[id number] DARWIN Administration Primidone 50 mg 03/09/21 18:00 03/11/21 09:58 Primidone 50 Mg Tablet PO 50 mg BID DARWIN Administration PFSH Acute PFSH: Medical History Anemia COPD (chronic obstructive pulmonary disease) Coronary artery disease Hypokalemia Syncope Tachycardia Surgical History History of 3 sections History of appendectomy History of hernia surgery Family History Father Stroke Denies family history of Diabetes CAD (coronary artery disease) Family history of premature coronary artery disease Social History Quit status (tobacco): not considering quitting Alcohol intake: never Lives independently: Yes Household members: spouse Marital status: Current occupational status: retired History of recent travel: No Current gender identity: Female Vitals/I&O/Wt Last Vital Signs Temp 98.2 F 03/12/21 04:00 Pulse 63 03/12/21 05:40 Resp 18 03/12/21 04:00 BP 124/54 03/12/21 04:00 Pulse Ox 93 03/12/21 04:00 03/11/21 03/11/21 03/12/21 14:59 22:59 06:59 Intake Total 1000 / 1000 1000 / 2000 Output Total 250 / 250 200 / 450 Balance 750 / 750 800 / 1550 Physical Exam Const: COMMON NORMALS: no acute distress and patient oriented x3 GENERAL APPEARANCE: cooperative, comfortable and well developed HENMT: COMMON NORMALS: normocephalic and moist oral mucous membranes HEAD & SCALP: normocephalic Chest: COMMONS NORMALS: normal inspection of the chest Resp: COMMON NORMALS: normal respiratory effort and clear to auscultation bilaterally AUSCULTATION: clear to auscultation bilaterally Cardio: COMMON NORMALS: regular rate (Heart sounds are very distant), regular rhythm, No gallops present (Cardio), No murmurs present (Cardio) and No rub (Cardio) RATE: regular rate (Heart sounds are very distant) RHYTHM: regular rhythm GI: COMMON NORMALS: Normal to inspection, nondistended, normoactive bowel sounds present AUSCULTATION: Yes normoactive bowel sounds Extremity: COMMON NORMALS: normal to inspection Neuro: COMMON NORMALS: patient oriented x3 and no focal motor deficits Skin: COMMON NORMALS: no rashes or lesions noted GENERAL SKIN EXAM: no rashes or lesions noted A&P Assessment and plan (1) Melanotic stools: Given the patient's history of anemia, as well as her current acute hemoglobin change, I believe the patient would benefit from having EGD done. When I initially discussed with her, she was hesitant to do the procedure. After she and I discussed it with her significant other, then discussed her situation further, she made the decision to proceed with the EGD. We discussed the risks of bleeding, perforation, and sedation. She has no further questions and wishes to proceed. She is appropriately on Plavix. As result, will avoid any interventions other than small biopsies during the procedure. The procedure scheduled for 11:30 AM today. Status: Acute (2) Anemia: Status: Acute Coding Level of Care Code Acute Neurosurgical Nurse Practitioner for [facility] Fwd Diagnoses Melanotic stools K92.1 Anemia D64.9
--- NOTE | 2021-03-12 10:56 | P.PN_ITS ---
Subjective Subjective: Interval history: Patient is scheduled for EGD today, hemoglobin stable around 8 Hemodynamically stable heart rate in low 60s patient is endorsing feeling fine no active complaints no recurrence of diarrhea since yesterday Vitals/I&O/Wt Last Vital Signs Temp 98.1 F 03/12/21 07:54 Pulse 63 03/12/21 08:33 Resp 16 03/12/21 08:33 BP 116/46 03/12/21 07:54 Pulse Ox 95 03/12/21 08:33 03/11/21 03/12/21 03/12/21 22:59 06:59 14:59 Intake Total 1000 / 1999 0 / 0 Output Total 200 / 450 Balance 800 / 1550 0 / 0 Physical Exam Narrative: EXAM NARRATIVE: Patient was laying comfortably No abdominal pain EOMI, PERRLA Heart rate 60 Blood pressure stable No audible stridor or wheezing Saturating well on room air Data : 03/12/21 04:29 03/12/21 04:29 A&P Assessment and plan (1) Melanotic stools: Status: Acute (2) Ileus: Status: Acute (3) Elevated digoxin level: Status: Acute (4) Acute kidney injury superimposed on chronic kidney disease: Status: Acute Additional A&P Information Melanotic stools Dehydration CHRISTELLE Elevated digoxin level Hypokalemia Plan Replenish potassium EGD today for melanotic stool hemoglobin stable at 8 I do believe at the time of admission she was hemoconcentrated that showed hemoglobin 11 previous hemoglobin trend seems to be between 8-9 Plan to discharge her after EGD if she stays stable She will be discharged home with data analytics architect, event monitor for 3 weeks her elevator worker is Dr. Drummond at [place] CHRISTELEL improved with IV fluids Transverse colon ileus no more vomiting or diarrheal episodes, C. 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
[2021-03-12] MEDS: sodium chloride 0.9% 1,000 ML 30 ML IV (11:20)
--- NOTE | 2021-03-12 11:37 | ANES.PREANE2 ---
Pre-Anesthetic Assessment Pre-Anesthetic Assessment: Height/Weight: Height 1.52 m Weight 42.638 kg Temp Pulse Resp BP Pulse Ox 97.4 F L 61 16 123/58 95 03/12/21 11:07 03/12/21 11:07 03/12/21 11:07 03/12/21 11:07 03/12/21 11:07 Proposed Procedure: Operation Date: 03/12/21 11:30 Proposed Procedures p EGD(Not Applicable) - To Yarbrough MD Was Beta Mónica taken within 24 hours: N/A Was Clonidine taken within 24 hours: N/A Last Intake: 19:00 Social: Social History: Tobacco and No alcohol Packs per day: 1/2 Pack years: 14 Exam: Pre-Anes Outpt Exam: alert and oriented x 3 Airway: Submandibular: WNL Cervical ROM: WNL MP: 2 Dentition: False History/ROS: No significant history except as noted Pulmonary: Pulmonary: COPD CV/HEM: CV/HEM: HTN : : None reported Hepatic: Hepatic: None reported GI: GI: GERD (food related) Metabolic: Metabolic: None reported Musc/skel: Musc/skel: None reported Neuropsych: Neuropsych: None reported Anesthetic Plan: Anesthesia: Anesthesia Evaluation and MAC Risk of > 500 ml blood loss (7ml/kg in children): No Meds/Allergies Current Medications: Current Medications Generic Name Dose Route Start Last Admin Trade Name Freq PRN Reason Stop Dose Admin Clopidogrel Bisulf ate 75 mg 03/10/21 09:00 03/11/21 09:58 Clopidogrel 75 M g Tablet PO 75 mg DAILY DARWIN Administration Heparin Sodium (Be ef Lung) 5,000 unit 03/09/21 18:30 03/11/21 05:21 Heparin 5,000 Un it/Ml Inj 1 Ml SUBCUT Not Given Q12H DARWIN Sodium Chloride 1,000 mls @ 75 ml s/hr 03/09/21 17:56 03/12/21 00:19 Sodium Chloride 0.9% IV 75 mls/hr .[id number] DARWIN Administration Primidone 50 mg 03/09/21 18:00 03/11/21 09:58 Primidone 50 Mg Tablet PO 50 mg BID DARWIN Administration PFSH Anesthesia PFSH: Medical History Anemia COPD (chronic obstructive pulmonary disease) Coronary artery disease Hypokalemia Syncope Tachycardia Surgical History History of 3 sections History of appendectomy History of hernia surgery Family History Father Stroke Denies family history of Diabetes CAD (coronary artery disease) Family history of premature coronary artery disease Social History Quit status (tobacco): not considering quitting Alcohol intake: never Lives independently: Yes Household members: spouse Marital status: Current occupational status: retired History of recent travel: No Current gender identity: Female Data Anesthesia CBC & Chem 7: 03/12/21 04:29 03/12/21 04:29 Other Labs: Laboratory Results - last 48 hr 03/11/21 03/11/21 03/11/21 03:29 03:29 03:29 WBC 5.6 RBC 2.40 L Hgb 8.0 L Hct 24.3 L MCV 101.3 H MCH 33.3 MCHC 32.9 RDW 12.5 Plt Count 261 MPV 10.2 Neut % (Auto) 52.8 Lymph % (Auto) 29.9 Ferry % (Auto) 9.7 Eos % (Auto) 6.7 Baso % (Auto) 0.7 Neut # (Auto) 2.93 Lymph # (Auto) 1.7 Ferry # (Auto) 0.5 Eos # (Auto) 0.4 Baso # (Auto) 0.0 Nucleated RBC % (auto) 0 Nucleated RBCs # 0.0 Sodium 136 Potassium 3.6 Chloride 106 Carbon Dioxide 22 Anion Gap 11.6 BUN 18 Creatinine 1.3 H GFR Calculation Not Reportable Glucose 76 Calculated Osmolality 283 L Lactate Calcium 7.5 L Vitamin B12 Folate Digoxin 1.9 H 03/11/21 03/11/21 03/11/21 03:29 03:29 11:22 WBC RBC Hgb 8.4 L Hct 25.7 L MCV MCH MCHC RDW Plt Count MPV Neut % (Auto) Lymph % (Auto) Ferry % (Auto) Eos % (Auto) Baso % (Auto) Neut # (Auto) Lymph # (Auto) Ferry # (Auto) Eos # (Auto) Baso # (Auto) Nucleated RBC % (auto) Nucleated RBCs # Sodium Potassium Chloride Carbon Dioxide Anion Gap BUN Creatinine GFR Calculation Glucose Calculated Osmolality Lactate Calcium Vitamin B12 181 L Folate 4.0 L Digoxin 03/12/21 03/12/21 03/12/21 04:29 04:29 04:29 WBC 5.9 RBC 2.43 L Hgb 8.0 L Hct 24.5 L MCV 100.8 H MCH 32.9 MCHC 32.7 RDW 12.4 Plt Count 254 MPV 10.1 Neut % (Auto) 56.8 Lymph % (Auto) 28.4 Ferry % (Auto) 6.8 Eos % (Auto) 7.3 Baso % (Auto) 0.5 Neut # (Auto) 3.35 Lymph # (Auto) 1.7 Ferry # (Auto) 0.4 Eos # (Auto) 0.4 Baso # (Auto) 0.0 Nucleated RBC % (auto) 0 Nucleated RBCs # 0.0 Sodium 137 Potassium 3.4 L Chloride 107 Carbon Dioxide 21 L Anion Gap 12.4 BUN 8 Creatinine 1.0 H GFR Calculation Not Reportable Glucose 77 Calculated Osmolality 281 L Lactate 0.7 Calcium 7.5 L Vitamin B12 Folate Digoxin Cardiac Studies: Echocardiogram 03/10/21 Cardiac Event Monitor 06/10/20
--- NOTE | 2021-03-12 12:09 | PM.OP2 ---
Brief Operative Note: Date of procedure: 03/12/21 Pre-op diagnosis: Melena, anemia Procedure Done: Esophagogastroduodenoscopy Surgeon: To Yarbrough Estimated blood loss (mL): 0 Complications: None Post-op Plan: There was no obvious source of bleeding in the patient's stomach. There was some mild to moderate gastritis of the pylorus. A careful examination of the area did not see any ulcerations or erosions. If the patient is stable, she may benefit from a colonoscopy on an outpatient basis. 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
--- NOTE | 2021-03-12 12:30 | PC.NURSE ---
Patient returned to room from GI lab. Reconnected to monitor. Awake and alert. Reports no pain.
--- NOTE | 2021-03-12 13:22 | PC.CHAP ---
Pastoral Care Encounter/Spiritual Assessment Type of Contact [] Declined cat dog or other pet groomer visit [] Patient/Family/Request visit [] Outpatient visit [xx] Follow-up visit [] Physician referral [] Code/Alert [] Routine visit [] Staff referral [] Actively dying [xx] Patient sleeping [] Family support [] [] Out of room [] Palliative care [] [] Receiving care in room [] Pre-surgical visit [] Trauma [] Long length of stay [] ICU visit [] Other: Relational/Emotional Strength [] Patient feels connected with others/family/visitors/staff [] Distress [] Loneliness/isolation [] Abandonment Spirituality of Patient [] Person of Lizeth [] Attends Amish of their Lizeth [] Believes in Prayer [] Reads Bible or Scientologist materials [] There are Spiritual issues to be addressed Self Defense Instructor Interventions [] Prayer [] Active listening [] Non-anxious presence [] Spiritual/emotional support [] Crisis/trauma care [] Spiritual counseling [] Bereavement support [] Provided bereavement packet [] Provided Bible/devotional materials [] Provided toy/stuffed animal, coloring book to patient or family member [] Provided Communion [] Anointing/[place] [] Salvation [] Completed spiritual assessment [] Other: Impact on Illness or Injury [] Angry [] Fearful [] Anxious [] Often cries [] Exhaustion [] Unable to work [] Unable to attend temple [] Unable to walk/stand [] Unable to read [] Unable to drive [] Unable to eat/drink [] Unable to sleep [] Unable to be with family [] Patient intubated [] Other: Summary This was a follow up visit but patient was sleeping soundly. Self Defense Instructor did not disturb her. Try follow up again later. Time spent with patient 1 minute
--- NOTE | 2021-03-12 15:35 | PC.RESP ---
SMOKING CESSATION AND PULMONARY REHAB INFORMATION SENT TO PATIENT.
[2021-03-12] MEDS: pantoprazole 40 mg SDV IVP (17:52)
[2021-03-12] MEDS: primidone 50 mg Tablet PO (17:53)
[2021-03-13] VITALS (7 sets, daily range): BP systolic 103–130; BP diastolic 53–61; PULSE 59–69; RESP 17–18; TEMP 36.7–36.8; O2SAT 94–97
[2021-03-13] MEDS: pantoprazole 40 mg SDV IVP (04:16)
[2021-03-13] MEDS: sodium chloride 0.9% 1,000 ML 75 ML IV (04:47)
--- NOTE | 2021-03-13 05:54 | PC.NURSE ---
Shift Note Frequent safety and comfort rounds continue. Pt slept well and reported she did not have any pain throughout the night. Orders and nursing care completed as indicated. Patient monitored for response to intervention and treatments. Education provided includes protonix. Patient verbalized understanding.
--- NOTE | 2021-03-13 07:31 | PC.SOCIAL ---
IMM update IMM updated with patient. Verbalized an understanding. Copy Pg. 2 provided. Initialled, dated, timed and placed in chart.
[2021-03-13] MEDS: primidone 50 mg Tablet PO (07:54)
[2021-03-13 08:29] LABS: Basophils % 0.5 %; Eosinophils # 0.5 10^3/uL (0.0-0.8); Eosinophils % 7.7 %; Hematocrit 25.6 % (37.0-47.0); Hemoglobin 8.4 g/dL (11.5-15.3); Lymphocytes # 1.3 10^3/uL (0.8-4.8); Lymphocytes % 20.7 %; Mean Corpuscular HGB Conc 32.8 g/dL (30.0-36.0); Mean Corpuscular Hemoglobin 33.3 pg (28.0-34.0); Mean Corpuscular Volume 101.6 fl (81-99); Mean Platelet Volume 9.9 fL (7.4-10.4); Monocytes # 0.5 10^3/uL (0.2-0.9); Monocytes % 7.1 %; Neutrophils # 4.04 10^3/uL (1.8-7.7); Neutrophils % 63.8 %; Nucleated Red Blood Cells % 0 %; Platelet Count 258 10^3/cmm (130-400); Red Blood Count 2.52 10^6/uL (4.1-5.3); Red Cell Distribution Width 12.8 % (12.1-15.1); White Blood Count 6.3 10^3/uL (4.0-10.0)
[2021-03-13 09:26] LABS: Anion Gap 12.1 (5-19); Blood Urea Nitrogen 5 mg/dL (8-23); Calcium 7.7 mg/dL (8.5-10.5); Carbon Dioxide 20 mmol/L (22-29); Chloride 108 mmol/L (98-107); Glucose 91 mg/dL (65-115); Osmolality Calculated 281 mOsm/kg (285-295); Potassium 3.1 mmol/L (3.5-5.1); Sodium 137 mmol/L (136-145)
--- NOTE | 2021-03-13 10:28 | PM.DCS ---
Discharge Providers Date of Admission: 03/10/21 11:27 Date of Discharge: March 13, 2021 Attending Provider at Admission: Curtis Baldwin MD Attending Provider at Discharge: Curtis Baldwin MD Primary Care Provider: Laith Patel Diagnoses at Discharge Discharge Diagnosis (1) Melanotic stools: Status: Acute (2) Ileus: Status: Acute (3) Elevated digoxin level: Status: Acute (4) Acute kidney injury superimposed on chronic kidney disease: Status: Acute Reason for Visit Reason for Visit: GENERALIZED WEAKNESS/ UNABLE TO WALK Hospital Course Hospital Course 75-year-old female who was admitted for management of digoxin elevated level when she presented with chief complaint of recurrent nausea and vomiting. Poison control was contacted in the ER, they recommended conservative management and holding her Cardizem and digoxin. Her digoxin level came down gradually. Patient did endorse tachycardia at home however during her hospitalization she remained bradycardic without significant drop in the blood pressure. She did not experience any chest pain shortness of breath or any malignant arrhythmias. Her electrolytes were replenished. Her hemoglobin trickled down, fit test positive, Dr. Yarbrough was consulted who did EGD, EGD did show gastritis. Colonoscopy was refused by the patient. She wanted to get it done outpatient. She was reluctant to even say yes for EGD however with the help of family members and has been she finally agreed. She will be discharged home without digoxin, Cardizem, she will be prescribed omeprazole. 21-day cardiac event monitor requested and Dr. Cueto was notified. Patient is stating that she would like to follow-up with Dr. Drummond her neighborhood planner at [place] but for cardiac event monitor reading she is willing to follow-up for [address] Cueto here. PT evaluation cleared her to go home, she did not have any neuropathy, Romberg sign negative, no neurological deficits, at the time of presentation she was weak and had some knee buckling on initial PT evaluation which was deemed secondary to dehydration. She did not exhibit such weakness on subsequent days. As far as her anemia is concerned I do believe when she presented she was hemoconcentrated that showed hemoglobin of 11 and after adequate resuscitation she was back to her baseline she did not require any blood transfusion if you do notice a trend of hemoglobin from last years she stays between 8 to 9 g/dL. Physical Exam Narrative: EXAM NARRATIVE: Patient was laying comfortably No abdominal pain EOMI, PERRLA Heart rate 60 Blood pressure stable No audible stridor or wheezing Saturating well on room air Discharge Data Data Completed and Pending: Completed Studies During Hospitalization Category Date Time Status CT abdomen pelvis wo con [id number] Stat Cat Scan 03/11/21 11:09 Completed XR chest 1V moy ble [id number] Stat Exams 03/09/21 09:37 Completed CV. echo complete * [id number] Routine Ultrasound 03/10/21 17:56 Completed Pending at discharge Category Date Time Status Fecal Occult Bloo d [Immunochemical Fecal OCB] Routine Lab 03/11/21 09:06 Uncollected Labs from last 24 hours 03/13/21 03/13/21 08:21 08:21 WBC 6.3 RBC 2.52 L Hgb 8.4 L Hct 25.6 L MCV 101.6 H MCH 33.3 MCHC 32.8 RDW 12.8 Plt Count 258 MPV 9.9 Neut % (Auto) 63.8 Lymph % (Auto) 20.7 [place] % (Auto) 7.1 Eos % (Auto) 7.7 Baso % (Auto) 0.5 Neut # (Auto) 4.04 Lymph # (Auto) 1.3 [place] # (Auto) 0.5 Eos # (Auto) 0.5 Baso # (Auto) 0.0 Nucleated RBC % (a uto) 0 Nucleated RBCs # 0.0 Sodium 137 Potassium 3.1 L Chloride 108 H Carbon Dioxide 20 L Anion Gap 12.1 BUN 5 L Creatinine 0.9 GFR Calculation Not Reportable Glucose 91 Calculated Osmolal ity 281 L Calcium 7.7 L Vitals: Last Vital Signs Temp 98.2 F 03/13/21 08:00 Pulse 63 03/13/21 08:03 Resp 18 03/13/21 08:00 BP 128/61 03/13/21 08:03 Pulse Ox 96 03/13/21 08:00 Discharge Plan Discharge Patient Disposition: Home Condition: Stable Prescriptions: New omeprazole 20 mg capsule,delayed release(DR/EC) 20 mg PO DAILY Qty: 30 RF: 2 potassium chloride 10 mEq capsule, extended release 10 meq PO BID Qty: 10 RF: 0 Continued simvastatin 20 mg tablet 20 mg PO DAILY RF: 0 primidone 50 mg tablet 50 mg PO BID RF: 0 tizanidine 4 mg tablet 4 mg PO Q8H PRN (Reason: Spasms) RF: 0 amitriptyline 25 mg tablet 25 mg PO BEDTIME RF: 0 ferrous sulfate 325 mg (65 mg iron) tablet 325 mg PO BID RF: 0 nitroglycerin 0.4 mg tablet, sublingual 0.4 mg sublingual PRN PRN (Reason: Chest Pain) RF: 0 acetaminophen 325 mg Tablet 650 mg PO Q6H PRN (Reason: Mild/Mod Pain Or Temp >/= 101) Qty: 0 RF: 0 promethazine 25 mg Tablet 25 mg PO Q6H PRN (Reason: Nausea) RF: 0 Dexilant 60 mg capsule,biphase delayed releas 60 mg PO DAILY RF: 0 Held clopidogrel 75 mg tablet 75 mg PO DAILY RF: 0 Hold Instructions: Resume on 03/23/21. Discontinued digoxin 125 mcg (0.125 mg) tablet 125 mcg PO DAILY RF: 0 Hold Instructions: Resume on 09/25/19. resume only after follow up with your PCP naproxen [Naprosyn] 500 mg tablet 500 mg PO BID PRN (Reason: Pain) RF: 0 sulfamethoxazole-trimethoprim [Bactrim DS] 800-160 mg Tablet 1 tab PO BID RF: 0 furosemide [Lasix] 20 mg Tablet 20 mg PO BID RF: 0 diltiazem HCl 60 mg capsule,extended release 12 hr 60 mg PO DAILY MDD see pharmacy comment RF: 0 Discharge Orders: Discharge Order (Routine); Ordered 03/13/21 Ordered By: Curtis Baldwin Other Ambulatory Orders: [place] cardiac event monitor (Routine) Timeframe: 1 Day Facility: [facility] - Location: Cardiac Diagnostic Laboratory Ordered By: Curtis Baldwin Referrals: Laith Patel DO [Primary Care Provider] - 4-7 days (Dr. Patel office will be calling to schedule a hospital followup to be seen in 4 to 7 days. If you don't heard from them by Monday afternoon, please give them a call. Thank you) Discharge Diet: Cardiac Discharge Activity: Increase activity as tolerated Patient Instructions: Chronic Pain, Potassium Chloride (By mouth), Omeprazole (By mouth), Coronary Artery Disease (DC), Acute Kidney Injury (DC), Ileus (DC), GI Discharge Instructions, Opioid Safety Discharge Attestations Time Spent in Discharge Care*: less than 30 min Quality Metrics Clinical Quality Measures During this hospital stay, did patient experience: None Coding Level of Care Code Acute Chg FW DC note Diagnoses Melanotic stools K92.1 Ileus K56.7 Elevated digoxin level R78.89 Acute kidney injury superimposed on chronic kidney disease N17.9; N18.9
--- NOTE | 2021-03-13 11:58 | PC.NURSE ---
pt education provided, no questions or concerns, IV removed with no issues.Pt left via wheelchair
--- NOTE | 2021-03-16 14:16 | PC.SOCIAL ---
discharge follow up call made, spoke with patient. patient hasn't received her new medications in the mail from the pharmacy yet. patient is aware of discontinued medications. patient will have library monitor placed tomorrow, 03-17 at 1100 at [facility]. Patient is aware of follow up a appointment with Dr. Patel. Patient denies questions or concerns.
== END 2021-03-13 12:02 | disposition home or self-care (01) | DRG 683 ==
LOC: ER 15:19 → CSU 17:01
PROVIDERS: Family Medicine; Physician Assistant; Student in an Organized Health Care Education/Training Program; Admitting Provider Internal Medicine; Emergency Provider Emergency Medicine; PCP Family Medicine; Visit Provider Internal Medicine
PROC: 0DJ08ZZ Inspection of Upper Intestinal Tract, Via Natural or Artificial Opening Endoscopic (ICD-10-PCS; CPT 43235; principal; 2021-03-12 11:30)
DX: N17.9 Acute kidney failure, unspecified (principal); K56.7 Ileus, unspecified; E87.1 Hypo-osmolality and hyponatremia; I47.2 Ventricular tachycardia; J44.9 Chronic obstructive pulmonary disease, unspecified; I25.10 Atherosclerotic heart disease of native coronary artery without angina pectoris; I48.91 Unspecified atrial fibrillation; E86.0 Dehydration; I49.8 Other specified cardiac arrhythmias; E83.51 Hypocalcemia; N18.9 Chronic kidney disease, unspecified; D64.9 Anemia, unspecified; E87.6 Hypokalemia; F17.210 Nicotine dependence, cigarettes, uncomplicated; K29.70 Gastritis, unspecified, without bleeding; K44.9 Diaphragmatic hernia without obstruction or gangrene; Z90.49 Acquired absence of other specified parts of digestive tract; Z82.3 Family history of stroke; Z88.0 Allergy status to penicillin
CPT/HCPCS: 12345; 36415; 36592; 43235; 71045; 74176; 80048; 80053; 80162; 81003; 82274; 82607; 82746; 83605; 83690; 83735; 83880; 84484; 85014; 85018; 85025; 87493; 93005; 93306; 96372; 96374; 97110; 97116; 97162; 99285; C9113; G0378; J0610; J1644; J2405; J2704; J7030; J7040

== ENCOUNTER 2021-03-26 10:41 | Observation (INO) | payer MEDICARE, MEDICAID, SELFPAY ==
[2021-03-26] VITALS (8 sets, daily range): BP systolic 108–170; BP diastolic 55–77; PULSE 59–91; RESP 15–21; TEMP 36.5; O2SAT 91–99; BMI 16.7; BMI 18.0
--- NOTE | 2021-03-26 11:07 | XR_ITS ---
WS: [id number] XR chest 1V portable [id number] REASON FOR EXAM: dyspnea/cough FINDINGS: Chest is unchanged compared to 03/09/2021. Mild to moderate tortuosity the thoracic aorta with moderat e prominence of the ascending aorta and arch. Calcified granulomatous disease bilaterally. No active pulmonary parenchymal or pleural disease. Degenerative changes in the lower thoracic spine and shoulder joints. Normal heart size. XR/XR chest 1V portable [id number] IMPRESSION: No acute chest abnormality.
--- NOTE | 2021-03-26 11:09 | CT_ITS ---
WS: [id number] CT ABDOMEN PELVIS TECHNIQUE: Noncontrast CT of the abdomen and pelvis with coronal and sagittal reformatted images. CLINICAL INFORMATION: abd pain COMPARISON: CT March 11, 2021 DLP: 357.[address] scans at [facility] use at least one of these dose optimization techniques: automated e xposure control; mA and/or kV adjustment per patient size (includes targeted exams where dose is matc hed to clinical indication); or iterative reconstruction. FINDINGS: Noncontrast liver is normal. Distended gallbladder with cholelithiasis. This can be further evaluated ultrasound. Fibrosis in the lung bases. Small esophageal hiatal hernia. Noncontrast spleen is normal . Adrenal glands are normal. No hydronephrosis in either kidney. Noncontrast pancreas appears normal. Normal caliber abdominal aorta. No abdominal or pelvic lymphadenopathy. No evidence of small or large bowel obstruction. CT/CT abdomen pelvis wo con [id number] IMPRESSION: 1. Distended gallbladder with cholelithiasis. No gallbladder wall thickening. This can be further evaluated ultrasound. 2. No evidence of small or large bowel obstruction. No free fluid in the pelvi s. 3. Normal caliber abdominal aorta. 4. No hydronephrosis in either kidney. 5. No other significant findings.
[2021-03-26 11:14] LABS: Basophils % 0.3 %; Eosinophils # 0.2 10^3/uL (0.0-0.8); Eosinophils % 2.1 %; Hematocrit 34.6 % (37.0-47.0); Hemoglobin 11.7 g/dL (11.5-15.3); Lymphocytes # 1.9 10^3/uL (0.8-4.8); Lymphocytes % 16.6 %; Mean Corpuscular HGB Conc 33.8 g/dL (30.0-36.0); Mean Corpuscular Hemoglobin 33.4 pg (28.0-34.0); Mean Corpuscular Volume 98.9 fl (81-99); Mean Platelet Volume 9.7 fL (7.4-10.4); Monocytes # 0.6 10^3/uL (0.2-0.9); Monocytes % 4.9 %; Neutrophils # 8.73 10^3/uL (1.8-7.7); Neutrophils % 75.8 %; Nucleated Red Blood Cells % 0 %; Platelet Count 427 10^3/cmm (130-400); Red Cell Distribution Width 12.5 % (12.1-15.1); White Blood Count 11.5 10^3/uL (4.0-10.0)
[2021-03-26] MEDS: sodium chloride 0.9% 500 ML 999 ML IV (11:24)
[2021-03-26 11:27] LABS: Lactic Sepsis W/Reflex 2.6 mmol/L (0.5-2.2)
[2021-03-26 11:33] LABS: Alanine Aminotransferase < 5 U/L (0-33); Albumin Level 4.2 g/dL (3.5-5.2); Alkaline Phosphatase 148 IU/L (35-105); Anion Gap 23.3 (5-19); Aspartate Amino Transferase 8 U/L (0-32); Blood Urea Nitrogen 40 mg/dL (8-23); Carbon Dioxide 21 mmol/L (22-29); Chloride 88 mmol/L (98-107); Creatine Phosphokinase 22 U/L (26-192); Globulin 3.2 g/dL (1.3-4.6); Glucose 103 mg/dL (65-115); Lipase 62 U/L (13-60); Magnesium 2.1 mg/dL (1.7-2.3); Osmolality Calculated 278 mOsm/kg (285-295); Potassium 3.3 mmol/L (3.5-5.1); Sodium 129 mmol/L (136-145); Total Bilirubin 0.2 mg/dL (0.15-1.2); Total Protein 7.4 g/dL (6.6-8.7)
--- NOTE | 2021-03-26 12:00 | ED_ITS ---
HPI - Nausea/Vomiting/Diarrhea General: Chief complaint: Nausea/Vomiting/Diarrhea Stated complaint: N/V/D Time Seen by Provider: 03/26/21 11:03 History of Present Illness: HPI Narrative: 75-year-old female presents to the emergency room with complaints of abdominal discomfort. She has had nausea and vomiting. She refers the discomfort to the epigastric and right upper quadrant area. States she has had this for the last 2 weeks she is not able to keep any food down she also reports 25 pound weight loss. She denies any hematochezia or melena no fever. She has recently been hospitalized.She was discharged on 03/13 for melanotic stools dig toxicity and acute on chronic kidney failure. MD elicited complaint: nausea, vomiting and diarrhea Onset (ago): day(s) Description of vomiting: food contents and bilious Description of diarrhea: semi-solid Associated nausea: Yes Associated abdominal pain: Yes Location of pain: RUQ Pain consistency: constant Severity: moderate Quality: stabbing Exacerbating factors: eating Relieving factors: rest Associated symtoms: Reports bloating and nausea; Denies altered mental status, anxiety, change in vision, chest pain, cough, diaphoresis, decreased urine output, dizziness, dysuria, epistaxis, fatigue, fe sammy incontinence, fevers/chills, headache(s), anorexia, malaise, myalgias, numbness, palpitations, rash, short of breath, syncope, tenesmus, tinnitus or weakness Review of Systems Const: Denies: fatigue, malaise or diaphoresis Eyes: Denies: change in vision ENMT: Denies: tinnitus or epistaxis Card: Denies: chest pain, palpitations or syncope Resp: Denies: dyspnea, productive cough or non-productive cough GI: Reports: abdominal pain, nausea, vomiting and bloating; Denies: hematemesis, coffee ground emesis or fecal incontinence : Denies: dysuria Skin/Breast: Denies: rash or pruritus Neuro: Denies: headache(s) or dizziness Psych: Denies: anxiety PFSH ED PFSH: Medical History Anemia Chronic kidney disease COPD (chronic obstructive pulmonary disease) Coronary artery disease Hypokalemia Hypotension Orthostatic dizziness Postural orthostatic tachycardia syndrome Syncope Tachycardia Surgical History History of 3 sections History of appendectomy History of hernia surgery Family History Father Stroke Denies family history of Diabetes CAD (coronary artery disease) Family history of premature coronary artery disease Social History Quit status (tobacco): not considering quitting Alcohol intake: never Lives independently: Yes Household members: spouse Marital status: Current occupational status: retired History of recent travel: No Current gender identity: Female Physical Exam Const: COMMON NORMALS: no acute distress EXAM LIMITATIONS: no altered mental status GENERAL APPEARANCE: cooperative and comfortable ORIENTATION/CONSCIOUSNESS: Yes awake, Yes oriented to person, Yes oriented to place and Yes oriented to time HENMT: COMMON NORMALS: normocephalic, atraumatic and hearing grossly normal bilaterally HEAD & SCALP: normocephalic and atraumatic Neck/C-Spine: COMMON NORMALS: no JVD Resp: COMMON NORMALS: normal respiratory effort, No retractions, No use of accessory muscles and clear to auscultation bilaterally AUSCULTATION: clear to auscultation bilaterally Cardio: COMMON NORMALS: no JVD, regular rate, regular rhythm and No murmurs present (Cardio) RATE: regular rate RHYTHM: regular rhythm GI: COMMON NORMALS: No hepatosplenomegaly present AUSCULTATION: Yes normoactive bowel sounds PALPATION: Yes Tenderness to palpation present (GI) Details: RUQ, No Guarding due to palpation present (GI) and Yes No hepatos plenomegaly present Extremity: COMMON NORMALS: normal to inspection, capillary refill normal, no clubbing, cyanosis or edema, no calf tenderness and no pedal edema Neuro: SENSORIUM/ORIENTATION: Yes oriented to person, Yes oriented to place and Yes oriented to time Skin: COMMON NORMALS: no rashes or lesions noted GENERAL SKIN EXAM: no bryan hes or lesions noted Course Vital Signs: Vital signs: Vital Signs Temperature 97.8 F 03/28/21 13:03 Pulse Rate 64 03/28/21 13:03 Respiratory Rate 17 03/28/21 13:03 Blood Pressure 109/61 03/28/21 13:03 Pulse Oximetry 97 03/28/21 13:03 MDM - Nausea/Vomiting/Diarrhea MDM Narrative: Medical decision making narrative: Patient has upper quadrant abdominal pain no definitive findings on the imaging but questionable for cystitis. Discussed Dr. Armijo treat as acute cholecystitis with antibiotics also treat her acute on chronic renal injury. Orders written. Lab Data: Labs: Lab Results 03/26/21 03/26/21 03/26/21 11:02 11:02 11:02 WBC 11.5 10^3/uL H 10 ^3/uL (4.0-10.0) RBC 3.50 10^6/uL L 10 ^6/uL (4.1-5.3) Hgb 11.7 g/dL g/dL (11.5-15.3) Hct 34.6 % L % (37.0-47.0) MCV 98.9 fl fl (81-99) MCH 33.4 pg pg (28.0-34.0) MCHC 33.8 g/dL g/dL (30.0-36.0) RDW 12.5 % % (12.1-15.1) Plt Count 427 10^3/cmm H 10 ^3/cmm (130-400) MPV 9.7 fL fL (7.4-10.4) Neut % (Auto) 75.8 % % Lymph % (Auto) 16.6 % % [place] % (Auto) 4.9 % % Eos % (Auto) 2.1 % % Baso % (Auto) 0.3 % % Neut # (Auto) 8.73 10^3/uL H 10 ^3/uL (1.8-7.7) Lymph # (Auto) 1.9 10^3/uL 10^3/ uL (0.8-4.8) [place] # (Auto) 0.6 10^3/uL 10^3/ uL (0.2-0.9) Eos # (Auto) 0.2 10^3/uL 10^3/ uL (0.0-0.8) Baso # (Auto) 0.0 10^3/uL 10^3/ uL (0.0-0.1) Nucleated RBC % (a uto) 0 % % Nucleated RBCs # 0.0 /100WBC /100W BC Sodium 129 mmol/L L mmol /L (136-145) Potassium 3.3 mmol/L L mmol /L (3.5-5.1) Chloride 88 mmol/L L mmol/ L (98-107) Carbon Dioxide 21 mmol/L L mmol/ L (22-29) Anion Gap 23.3 H (5-19) BUN 40 mg/dL H mg/dL (8-23) Creatinine 2.8 mg/dL H mg/dL (0.5-0.9) GFR Calculation Not Reportable Glucose 103 mg/dL mg/dL (65-115) Calculated Osmolal ity 278 mOsm/kg L mOs m/kg (285-295) Lactic Acid 2.6 mmol/L H mmol /L (0.5-2.2) Lactic Acid (Sepsi s) Calcium 8.0 mg/dL L mg/dL (8.5-10.5) Phosphorus Magnesium 2.1 mg/dL mg/dL (1.7-2.3) Total Bilirubin 0.2 mg/dL mg/dL (0.15-1.2) AST 8 U/L U/L (0-32) ALT < 5 U/L U/L (0-33) Alkaline Phosphata se 148 IU/L H IU/L (35-105) Creatine Kinase 22 U/L L U/L (26-192) C-Reactive Protein Total Protein 7.4 g/dL g/dL (6.6-8.7) Albumin 4.2 g/dL g/dL (3.5-5.2) Globulin 3.2 g/dL g/dL (1.3-4.6) Lipase 62 U/L H U/L (13-60) Procalcitonin TSH Urine Color Urine Appearance Urine pH Ur Specific Gravit y Urine Protein Urine Glucose (UA) Urine Ketones Urine Blood Urine Nitrate Urine Bilirubin Urine Urobilinogen Ur Leukocyte Uma ase Urine RBC Urine WBC Ur Squamous Epith Cells Amorphous Sediment Urine Bacteria 03/26/21 03/26/21 03/27/21 14:00 21:03 05:44 WBC 6.3 10^3/uL 10^3/ uL (4.0-10.0) RBC 3.15 10^6/uL L 10 ^6/uL (4.1-5.3) Hgb 10.3 g/dL L g/dL (11.5-15.3) Hct 31.5 % L % (37.0-47.0) MCV 100.0 fl H fl (81-99) MCH 32.7 pg pg (28.0-34.0) MCHC 32.7 g/dL g/dL (30.0-36.0) RDW 12.4 % % (12.1-15.1) Plt Count 372 10^3/cmm 10^3 /cmm (130-400) MPV 9.9 fL fL (7.4-10.4) Neut % (Auto) 58.6 % % Lymph % (Auto) 25.2 % % [place] % (Auto) 5.1 % % Eos % (Auto) 10.2 % % Baso % (Auto) 0.6 % % Neut # (Auto) 3.66 10^3/uL 10^3 /uL (1.8-7.7) Lymph # (Auto) 1.6 10^3/uL 10^3/ uL (0.8-4.8) [place] # (Auto) 0.3 10^3/uL 10^3/ uL (0.2-0.9) Eos # (Auto) 0.6 10^3/uL 10^3/ uL (0.0-0.8) Baso # (Auto) 0.0 10^3/uL 10^3/ uL (0.0-0.1) Nucleated RBC % (a uto) 0 % % Nucleated RBCs # 0.0 /100WBC /100W BC Sodium Potassium Chloride Carbon Dioxide Anion Gap BUN Creatinine GFR Calculation Glucose Calculated Osmolal ity Lactic Acid Lactic Acid (Sepsi s) 0.8 mmol/L mmol/L (0.5-2.2) Calcium Phosphorus Magnesium Total Bilirubin AST ALT Alkaline Phosphata se Creatine Kinase C-Reactive Protein Total Protein Albumin Globulin Lipase Procalcitonin TSH Urine Color Yellow (Yellow) Urine Appearance Sl cloudy A (CLEAR) Urine pH 5 (5-7) Ur Specific Gravit y 1.015 (1.005-1.030) Urine Protein Neg (Negative) Urine Glucose (UA) Norm (Normal) Urine Ketones Negative (Negative) Urine Blood Neg (Negative) Urine Nitrate Positive H (Negative) Urine Bilirubin Neg (Negative) Urine Urobilinogen Norm mg/dL mg/dL (Negative) Ur Leukocyte Uma ase 2+ H (Negative) Urine RBC 0-4 /hpf H /hpf (0-2) Urine WBC 55-80 /hpf H /hpf (0-5) Ur Squamous Epith Cells 15-25 /hpf H /hpf (0-5) Amorphous Sediment Not Reportable Urine Bacteria 2+ /hpf H /hpf (NONE) 03/27/21 05:44 WBC RBC Hgb Hct MCV MCH MCHC RDW Plt Count MPV Neut % (Auto) Lymph % (Auto) [place] % (Auto) Eos % (Auto) Baso % (Auto) Neut # (Auto) Lymph # (Auto) [place] # (Auto) Eos # (Auto) Baso # (Auto) Nucleated RBC % (a uto) Nucleated RBCs # Sodium 132 mmol/L L mmol /L (136-145) Potassium 3.0 mmol/L L mmol /L (3.5-5.1) Chloride 97 mmol/L L mmol/ L (98-107) Carbon Dioxide 20 mmol/L L mmol/ L (22-29) Anion Gap 18.0 (5-19) BUN 30 mg/dL H mg/dL (8-23) Creatinine 1.9 mg/dL H mg/dL (0.5-0.9) GFR Calculation Not Reportable Glucose 66 mg/dL mg/dL (65-115) Calculated Osmolal ity 278 mOsm/kg L mOs m/kg (285-295) Lactic Acid Lactic Acid (Sepsi s) Calcium 8.1 mg/dL L mg/dL (8.5-10.5) Phosphorus 3.4 mg/dL mg/dL (2.5-4.5) Magnesium 1.9 mg/dL mg/dL (1.7-2.3) Total Bilirubin 0.2 mg/dL mg/dL (0.15-1.2) AST 7 U/L U/L (0-32) ALT < 5 U/L U/L (0-33) Alkaline Phosphata se 134 IU/L H IU/L (35-105) Creatine Kinase C-Reactive Protein 44.0 mg/L H mg/L (0.0-4.9) Total Protein 6.6 g/dL g/dL (6.6-8.7) Albumin 3.7 g/dL g/dL (3.5-5.2) Globulin 2.9 g/dL g/dL (1.3-4.6) Lipase Procalcitonin 0.15 ng/mL ng/mL (0-0.5) TSH 1.01 uIU/mL uIU/m L (0.27-4.20) Urine Color Urine Appearance Urine pH Ur Specific Gravit y Urine Protein Urine Glucose (UA) Urine Ketones Urine Blood Urine Nitrate Urine Bilirubin Urine Urobilinogen Ur Leukocyte Mua ase Urine RBC Urine WBC Ur Squamous Epith Cells Amorphous Sediment Urine Bacteria Discharge Plan Discharge Patient Disposition: Admitted As Inpatient Admit Provider: Benedicto Armijo Clinical Impression: Cholecystitis, Acute kidney injury Condition: Stable Coding Level of Care Code ED Dampener for Justus Greenwood
[2021-03-26] MEDS: sodium chloride 0.9% 1,000 ML 999 ML IV (12:26)
--- NOTE | 2021-03-26 12:51 | US_ITS ---
WS: [id number] ULTRASOUND ABDOMEN LIMITED CLINICAL INFORMATION: RUQ pain, cholelithiasis COMPARISON: None. FINDINGS: Liver Size: Normal. Craniocaudal length: 13.1 cm. Echogenicity: Normal. Surface nodularity: None. Mass (size and location): None. Bile ducts Intrahepatic ducts: Normal. Common bile duct diameter: 0.5 cm. Gallbladder Cholelithiasis with dilated fluid-filled gallbladder Gallstones: Present Gallbladder sludge: None. Gallbladder wall thickenin.7 mm Pericholecystic fluid: None. Sonographic Post sign: Absent. Pancreas Normal as visualized. Right kidney: Normal. Hydronephrosis: None. Size: 9.2 cm x 3.4 cm x 4.2 cm. Abdominal aorta and IVC Visualized portions are normal. Ascites: None. US/US gall bladder 61015 IMPRESSION: 1. Fluid distended gallbladder with cholelithiasis. Mild gallbladder wall thic kening measuring 3.7 mm. No pericholecystic fluid. 2. Recommend Correlation for early or mild cholecystitis. Normal common bile d uct. 3. Normal liver. 4. No hydronephrosis in right kidney.
[2021-03-26 12:59] LABS: Reflex Lactate Order REFLEX LACTIC ORDERD
--- NOTE | 2021-03-26 13:17 | PC.PHAR ---
pt states she takes care of her own medications-pt states dr rene restarted triamterene/hctz 37.5/25mg daily-medication was dced on discharge from 03/13/21 -pt states midodrine 5mg (filled on 01/05/21 90d/s),isosorbide dinitrate 5mg (filled on 01/30/21 90d/s) and metoprolol er 25mg (filled on 03/01/21)was all dced-pt states she takes kcl 10meq po daily -notes are made in the pharmacy comments
[2021-03-26 14:30] LABS: Lactic Acid level (Lactate) 0.8 mmol/L (0.5-2.2)
--- NOTE | 2021-03-26 16:01 | P.HP_ITS ---
Providers/Chief Complaint Primary Care Provider: Laith Patel Chief Complaint: N/V/D History of Present Illness Maile López is a 75 year old female with past medical history of COPD, CAD, history of syncope secondary to POTS, history of CKD, recent history of colonoscopy status post EGD, Hemoccult positive stool, who presents to [facility] for nausea, vomiting, diarrhea. Patient tells me that she continues to have episodes of nausea, vomiting, diarrhea, does complain of lightheadedness, she has had these symptoms for the last 2 weeks, decreased appetite, denies any bloody or black stools, but she was Hemoccult positive here in the emergency room, she also does complain of abdominal pain, particular in the right upper quadrant, has been vaccinated for Covid, no recent antibiotic use, denies history of food poisoning Medications/Allergies Home Medications Medication Instructions Recorded Confirmed Last Taken Type amitriptyline 25 mg PO BEDTIME 09/09/19 03/26/21 03/08/21 History clopidogrel 75 mg PO DAILY 09/09/19 03/26/21 03/26/21 06:00 History ferrous sulfate 325 mg PO BID 09/09/19 03/26/21 03/26/21 06:00 History nitroglycerin 0.4 mg SUBLINGUAL PRN PRN 09/09/19 03/26/21 Unknown History tizanidine 4 mg PO Q8H PRN 09/09/19 03/26/21 09/09/19 History primidone 50 mg tablet 50 mg PO BID tab 07/16/20 03/26/21 03/26/21 06:00 History simvastatin 20 mg tablet 20 mg PO DAILY 01/04/21 03/26/21 03/08/21 History Dexilant 60 mg PO DAILY 01/31/21 03/26/21 03/26/21 06:00 History promethazine 25 mg PO Q6H PRN 03/09/21 03/26/21 Unknown History omeprazole 20 mg PO DAILY #30 cap 03/13/21 03/26/21 03/26/21 06:00 Rx dicyclomine 10 mg PO BID 03/26/21 03/26/21 03/26/21 06:00 History potassium chloride 10 meq PO DAILY 03/26/21 03/26/21 03/26/21 06:00 History triamterene-hydrochlorothiazid 1 tab PO DAILY 03/26/21 03/26/21 03/26/21 06:00 History Allergies Allergy/AdvReac Type Severity Reaction Status Date / Time iodine Allergy Unknown Verified 03/26/21 13:07 Penicillins Allergy ALGY-Anaphy Verified 03/26/21 13:07 laxis PFSH Acute PFSH: Medical History Anemia COPD (chronic obstructive pulmonary disease) Coronary artery disease Hypokalemia Syncope Tachycardia Surgical History History of 3 sections History of appendectomy History of hernia surgery Family History Father Stroke Denies family history of Diabetes CAD (coronary artery disease) Family history of premature coronary artery disease Social History Quit status (tobacco): not considering quitting Alcohol intake: never Lives independently: Yes Household members: spouse Marital status: Current occupational status: retired History of recent travel: No Current gender identity: Female Vitals/I&O/Wt Last Vital Signs Temp 97.7 F 03/26/21 10:45 Pulse 91 03/26/21 15:00 Resp 15 03/26/21 15:00 BP 170/77 03/26/21 15:00 Pulse Ox 98 03/26/21 15:00 03/26/21 03/26/21 03/26/21 06:59 14:59 22:59 Intake Total 1500 / 1500 Balance 1500 / 1500 Weight last 48 hrs Weight 39.009 kg Physical Exam Const: COMMON NORMALS: no acute distress and patient oriented x3 GENERAL APPEARANCE: cooperative and comfortable HENMT: COMMON NORMALS: normocephalic HEAD & SCALP: normocephalic Eye: COMMON NORMALS: Equal, round and reactive pupils present and EOMs intact bilaterally GENERAL EYE: appearance normal, both eyes and all related structures PUPIL: Yes Equal, round and reactive pupils present Neck/C-Spine: COMMON NORMALS: full ROM, no lymphadenopathy and no JVD THYROID: Thyroid normal Lymph: LYMPHATIC: no lymphadenopathy noted Resp: COMMON NORMALS: normal respiratory effort, No retractions, No use of accessory muscles and clear to auscultation bilaterally AUSCULTATION: clear to auscultation bilaterally Cardio: COMMON NORMALS: regular rate, regular rhythm, S1 normal heart sound present, S2 normal heart sound present, No gallops present (Cardio), No clicks present (Cardio) and No murmurs present (Cardio) RATE: regular rate RHYTHM: regular rhythm HEART SOUNDS: S1 normal heart sound present and S2 no rmal heart sound present GI: COMMON NORMALS: Normal to inspection, nondistended, normoactive bowel sounds present PALPATION: Yes Tenderness to palpation present (GI) Details: RUQ Extremity: COMMON NORMALS: no pedal edema Neuro: COMMON NORMALS: patient oriented x3, CN's II-XII intact bilaterally, moves all extremities and no focal motor deficits Psych: COMMON NORMALS: mental status grossly normal, Normal thought process present and cooperative THOUGHT PROCESS: Normal thought process present Data : 03/26/21 11:02 03/26/21 11:02 Micro: Microbiology 03/26/21 11:00 Occult Blood (FIT) - Final Stool - Stool Aspirate 03/26/21 11:10 Blood Culture - Preliminary Blood SPECIMEN COLLECTED 03/26/21 11:20 Blood Culture - Preliminary Blood SPECIMEN COLLECTED A&P Assessment and plan (1) Right upper quadrant pain: Right upper quadrant pain -WBC 11.5 -Alk phos 148, T bili within normal limits, LFTs within normal limits, lipase within normal limits -CT scan of the abdomen pelvis distended gallbladder with cholelithiasis. No gallbladder wall thickening. -Right upper quadrant ultrasound fluid distended gallbladder with cholelithiasis. Mild gallbladder wall thickening measuring 3.7 mm. No pericholecystic fluid. -Exquisite tenderness in the right upper quadrant Plan: -We will treat for acute cholecystitis -Gentle IV hydration -Clear liquid diet for now -Zosyn for antibiotic coverage -We will consider surgical evaluation as outpatient -Full code -Lovenox for DVT prophylaxis Acute renal failure, creatinine 2.8, likely secondary dehydration, continue IV hydration Hyponatremia secondary dehydration, IV hydration Hypokalemia, secondary dehydration Hemoccult positive stools, history of melanotic stools in the past, EGD during last hospitalization within normal limits, patient declined colonoscopy, he moglobin 11.7, continue to monitor Full code DVT prophylaxis contraindicated given Hemoccult positive stools, scd Status: Acute (2) COPD (chronic obstructive pulmonary disease): Status: Acute Qualifiers: COPD type: unspecified COPD Qualified Code(s): J44.9 - Chronic obstructive pulmonary disease, unspecified (3) Acute renal failure (ARF): Status: Acute (4) Hyponatremia: Status: Acute Attestations Medical Necessity Statement*: Patient requires hospitalization, outpatient with observation, for dehydration, acute renal failure, right upper quadrant pain Coding Level of Care Code Acute Medical Stenographer for Chg Fwd Diagnoses Right upper quadrant pain R10.11 COPD (chronic obstructive pulmonary disease) J44.9 COPD type: unspecified COPD Acute renal failure (ARF) N17.9 Hyponatremia E87.1
[2021-03-26] MEDS: pantoprazole 40 mg SDV IVP (20:29)
[2021-03-26] MEDS: primidone 50 mg Tablet PO (20:47)
[2021-03-26] MEDS: ferrous sulfate EC 325 mg Tablet PO (20:47)
[2021-03-26] MEDS: amitriptyline 25 mg Tablet PO (20:48)
[2021-03-26] MEDS: dicyclomine 10 mg Capsule PO (20:48)
[2021-03-26] MEDS: ciprofloxacin 400 MG/200 ML PREMIX 200 MG IV (20:57)
[2021-03-26 21:32] LABS: Add Urine Microscopic? YES; Bilirubin Urine Neg (Negative); Blood Urine Neg (Negative); Glucose Urine UA Norm (Normal); Ketones Urine Negative (Negative); Leukocyte Esterase Urine 2+ (Negative); Nitrate Urine Positive (Negative); Protein Urine Neg (Negative); Specific Gravity, Urine 1.015 (1.005-1.030); Urine Color Yellow (Yellow); Urobilinogen Urine Norm (Negative); pH Urine 5 (5-7)
[2021-03-26 21:40] LABS: Add Urine Culture? No; Bacteria Urine 2+ /hpf; RBC Urine 0-4 /hpf (0-2); Squamous Epithelial Cell Urine 15-25 /hpf (0-5); WBC Urine 55-80 /hpf (0-5)
[2021-03-26] MEDS: sodium chloride 0.9% 1,000 ML 100 ML IV (22:52)
[2021-03-26] MEDS: metroNIDAZOLE IV 500 MG/100 ML PREMIX 100 MG IV (22:52)
[2021-03-27] VITALS (7 sets, daily range): BP systolic 99–116; BP diastolic 52–64; PULSE 63–73; RESP 17–18; TEMP 36.4–36.9; O2SAT 93–100
[2021-03-27 06:08] LABS: Basophils % 0.6 %; Eosinophils # 0.6 10^3/uL (0.0-0.8); Eosinophils % 10.2 %; Hematocrit 31.5 % (37.0-47.0); Hemoglobin 10.3 g/dL (11.5-15.3); Lymphocytes # 1.6 10^3/uL (0.8-4.8); Lymphocytes % 25.2 %; Mean Corpuscular HGB Conc 32.7 g/dL (30.0-36.0); Mean Corpuscular Hemoglobin 32.7 pg (28.0-34.0); Mean Platelet Volume 9.9 fL (7.4-10.4); Monocytes # 0.3 10^3/uL (0.2-0.9); Monocytes % 5.1 %; Neutrophils # 3.66 10^3/uL (1.8-7.7); Neutrophils % 58.6 %; Nucleated Red Blood Cells % 0 %; Platelet Count 372 10^3/cmm (130-400); Red Blood Count 3.15 10^6/uL (4.1-5.3); Red Cell Distribution Width 12.4 % (12.1-15.1); White Blood Count 6.3 10^3/uL (4.0-10.0)
[2021-03-27] MEDS: pantoprazole 40 mg SDV IVP ×2 (06:14→17:23)
[2021-03-27 06:42] LABS: Procalcitonin 0.15 ng/mL (0-0.5); Thyroid Stimulating Hormone 1.01 uIU/mL (0.27-4.20)
[2021-03-27 06:53] LABS: Alanine Aminotransferase < 5 U/L (0-33); Albumin Level 3.7 g/dL (3.5-5.2); Alkaline Phosphatase 134 IU/L (35-105); Aspartate Amino Transferase 7 U/L (0-32); Blood Urea Nitrogen 30 mg/dL (8-23); Calcium 8.1 mg/dL (8.5-10.5); Carbon Dioxide 20 mmol/L (22-29); Chloride 97 mmol/L (98-107); Globulin 2.9 g/dL (1.3-4.6); Glucose 66 mg/dL (65-115); Magnesium 1.9 mg/dL (1.7-2.3); Osmolality Calculated 278 mOsm/kg (285-295); Phosphorus 3.4 mg/dL (2.5-4.5); Sodium 132 mmol/L (136-145); Total Bilirubin 0.2 mg/dL (0.15-1.2); Total Protein 6.6 g/dL (6.6-8.7)
[2021-03-27] MEDS: metroNIDAZOLE IV 500 MG/100 ML PREMIX 100 MG IV ×3 (07:08→22:21)
[2021-03-27] MEDS: potassium chloride ER 10 mEq Tablet PO (08:22)
[2021-03-27] MEDS: primidone 50 mg Tablet PO ×2 (08:22→17:21)
[2021-03-27] MEDS: atorvastatin 40 mg Tablet 20 MG PO (08:22)
[2021-03-27] MEDS: dicyclomine 10 mg Capsule PO ×2 (08:22→17:21)
[2021-03-27] MEDS: ferrous sulfate EC 325 mg Tablet PO ×2 (08:22→17:21)
[2021-03-27] MEDS: clopidogrel 75 mg Tablet PO (08:22)
[2021-03-27] MEDS: ciprofloxacin 400 MG/200 ML PREMIX 200 MG IV ×2 (08:23→21:04)
[2021-03-27] MEDS: potassium chloride ER 20 mEq Tablet 40 MEQ PO (10:45)
[2021-03-27] MEDS: sodium chloride 0.9% 1,000 ML 100 ML IV ×2 (10:46→22:21)
--- NOTE | 2021-03-27 14:20 | P.PN_ITS ---
Subjective Subjective: Interval history: Patient was seen this morning, she has complaints of diarrhea, no nausea, no vomiting, but continues to have tenderness in the right upper quadrant, no fevers overnight Vitals/I&O/Wt Last Vital Signs Temp 98.4 F 03/27/21 11:59 Pulse 70 03/27/21 11:59 Resp 17 03/27/21 11:59 BP 100/60 03/27/21 11:59 Pulse Ox 98 03/27/21 11:59 03/26/21 03/27/21 03/27/21 22:59 06:59 14:59 Intake Total 200 / 1700 1060 / 2760 1660 / 1660 Output Total 350 / 350 Balance 200 / 1700 710 / 2410 1660 / 1660 Weight last 48 hrs Weight 41.867 kg Weight 39.009 kg Physical Exam Const: COMMON NORMALS: no acute distress and patient oriented x3 Resp: COMMON NORMALS: normal respiratory effort, No retractions, No use of accessory muscles and clear to auscultation bilaterally AUSCULTATION: clear to auscultation bilaterally Cardio: COMMON NORMALS: regular rate, regular rhythm, S1 normal heart sound present and S2 normal heart sound present RATE: regular rate RHYTHM: regular rhythm HEART SOUNDS: S1 normal heart sound present and S2 normal heart sound present GI: COMMON NORMALS: Normal to inspection, nondistended, normoactive bowel sounds present and Soft to palpation PALPATION: Yes Soft to palpation and Yes Tenderness to palpation present (GI) Details: RUQ Extremity: COMMON NORMALS: no pedal edema Neuro: COMMON NORMALS: patient oriented x3 Psych: COMMON NORMALS: mental status grossly normal Data : 03/27/21 05:44 03/27/21 05:44 Micro: Microbiology 03/26/21 11:20 Blood Culture - Preliminary Blood NEGATIVE TO DATE 03/26/21 11:10 Blood Culture - Preliminary Blood NEGATIVE TO DATE 03/26/21 11:00 C.difficile Toxin B Gene (PCR) - Final Stool - Stool Aspirate 03/26/21 11:00 Occult Blood (FIT) - Final Stool - Stool Aspirate A&P Assessment and plan (1) Right upper quadrant pain: Right upper quadrant pain -WBC 6.3 -Alk phos 148, T bili within normal limits, LFTs within normal limits, lipase within normal limits -CT scan of the abdomen pelvis distended gallbladder with cholelithiasis. No gallbladder wall thickening. -Right upper quadrant ultrasound fluid distended gallbladder with cholelithiasi s. Mild gallbladder wall thickening measuring 3.7 mm. No pericholecystic fluid. -Exquisite tenderness in the right upper quadrant Plan: -We will treat for acute cholecystitis -Gentle IV hydration -Clear liquid diet for now -Cipro and Flagyl for antibiotic coverage -We will consider surgical evaluation as outpatient -Full code -Lovenox for DVT prophylaxis UTI, follow urine cultures, Cipro as above Acute renal failure, creatinine 1.9, likely secondary dehydration, continue IV hydration Hyponatremia secondary dehydration, IV hydration Hypokalemia, secondary dehydration Hemoccult positive stools, history of melanotic stools in the past, EGD during last hospitalization within normal limits, patient declined colonoscopy, hemoglobin 10.3, continue to monitor, on Plavix Full code DVT prophylaxis contraindicated given Hemoccult positive stools, scd Status: Acute (2) COPD (chronic obstructive pulmonary disease): Status: Acute Qualifiers: COPD type: unspecified COPD Qualified Code(s): J44.9 - Chronic obstructive pulmonary disease, unspecified (3) Acute renal failure (ARF): Status: Acute (4) Hyponatremia: Status: Acute Attestations Medical Necessity Statement*: Patient requires hospitalization for persistent right upper quadrant pain, UTI, concern for acute cholecystitis Levaquin IV antibiotic therapy, requiring inpatient admission, greater than 2 midnights Coding Level of Care Code Acute Upper Cutter Machine for Chg Fwd Diagnoses Right upper quadrant pain R10.11 COPD (chronic obstructive pulmonary disease) J44.9 COPD type: unspecified COPD Acute renal failure (ARF) N17.9 Hyponatremia E87.1
[2021-03-27] MEDS: amitriptyline 25 mg Tablet PO (21:03)
[2021-03-28 03:47] VITALS: BP 104/52; PULSE 68; RESP 18; TEMP 36.2; O2SAT 97
[2021-03-28 06:05] LABS: Basophils % 0.7 %; Eosinophils # 0.4 10^3/uL (0.0-0.8); Hematocrit 26.9 % (37.0-47.0); Hemoglobin 8.8 g/dL (11.5-15.3); Lymphocytes # 1.4 10^3/uL (0.8-4.8); Lymphocytes % 30.4 %; Mean Corpuscular HGB Conc 32.7 g/dL (30.0-36.0); Mean Corpuscular Hemoglobin 32.8 pg (28.0-34.0); Mean Corpuscular Volume 100.4 fl (81-99); Mean Platelet Volume 9.9 fL (7.4-10.4); Monocytes # 0.3 10^3/uL (0.2-0.9); Monocytes % 6.4 %; Neutrophils # 2.44 10^3/uL (1.8-7.7); Neutrophils % 54.3 %; Nucleated Red Blood Cells % 0 %; Platelet Count 358 10^3/cmm (130-400); Red Blood Count 2.68 10^6/uL (4.1-5.3); Red Cell Distribution Width 12.6 % (12.1-15.1); White Blood Count 4.5 10^3/uL (4.0-10.0)
[2021-03-28] MEDS: pantoprazole 40 mg SDV IVP (06:16)
[2021-03-28] MEDS: metroNIDAZOLE IV 500 MG/100 ML PREMIX 100 MG IV (06:18)
[2021-03-28 06:35] LABS: Alanine Aminotransferase < 5 U/L (0-33); Alkaline Phosphatase 108 IU/L (35-105); Anion Gap 12.9 (5-19); Aspartate Amino Transferase 7 U/L (0-32); Blood Urea Nitrogen 13 mg/dL (8-23); C Reactive Protein 21.5 mg/L (0.0-4.9); Calcium 7.8 mg/dL (8.5-10.5); Carbon Dioxide 20 mmol/L (22-29); Chloride 106 mmol/L (98-107); Globulin 2.6 g/dL (1.3-4.6); Glucose 76 mg/dL (65-115); Magnesium 1.6 mg/dL (1.7-2.3); Osmolality Calculated 281 mOsm/kg (285-295); Phosphorus 1.8 mg/dL (2.5-4.5); Sodium 136 mmol/L (136-145); Total Bilirubin 0.2 mg/dL (0.15-1.2); Total Protein 5.6 g/dL (6.6-8.7)
[2021-03-28 06:39] LABS: Procalcitonin 0.09 ng/mL (0-0.5)
[2021-03-28 06:48] LABS: Potassium 2.9 mmol/L (3.5-5.1)
[2021-03-28 07:20] VITALS: BP 100/46; PULSE 59; RESP 16; TEMP 36.9; O2SAT 96
--- NOTE | 2021-03-28 08:02 | PC.NURSE ---
Lab called with a critical potassium of 2.9. Nurse notified Dr. Wallace
[2021-03-28] MEDS: potassium chloride ER 20 mEq Tablet PO (08:59)
[2021-03-28] MEDS: ferrous sulfate EC 325 mg Tablet PO (08:59)
[2021-03-28] MEDS: clopidogrel 75 mg Tablet PO (08:59)
[2021-03-28] MEDS: primidone 50 mg Tablet PO (08:59)
[2021-03-28] MEDS: atorvastatin 40 mg Tablet 20 MG PO (08:59)
[2021-03-28] MEDS: dicyclomine 10 mg Capsule PO (08:59)
[2021-03-28] MEDS: potassium chloride ER 10 mEq Tablet PO (08:59)
[2021-03-28] MEDS: ciprofloxacin 400 MG/200 ML PREMIX 200 MG IV (09:00)
--- NOTE | 2021-03-28 10:51 | P.DS_ITS ---
Discharge Providers Date of Admission: 03/27/21 14:23 Date of Discharge: March 28, 2021 Attending Provider at Admission: Benedicto Armijo MD Attending Provider at Discharge: Reji Wallace Primary Care Provider: Laith Patel Diagnoses at Discharge Discharge Diagnosis (1) Right upper quadrant pain: Status: Acute (2) COPD (chronic obstructive pulmonary disease): Status: Acute Qualifiers: COPD type: unspecified COPD Qualified Code(s): J44.9 - Chronic obstructive pulmonary disease, unspecified (3) Acute renal failure (ARF): Status: Acute (4) Hyponatremia: Status: Acute Reason for Visit Reason for Visit: N/V/D Hospital Course Hospital Course Pleasant 75-year-old lady with history of COPD, anemia, CAD, hypokalemia, recently with Hemoccult positive, status post EGD, was admitted versus management after presenting with nausea vomiting and diarrhea, with lightheadedness. Poor appetite. Abdominal pain in the right upper quadrant. Minimal leukocytosis of 11.5 on presentation. Alk phos 148. T bili and clarke saminases normal. Lipase with minute elevation at 62. CT abdomen pelvis with poor distention of gallbladder with cholelithiasis, no GB wall thickening. Right upper quadrant ultrasound with cholelithiasis, mild GB wall thickening 3.7 no pericholecystic fluid. Tender right upper quadrant. New to possible acute cholecystitis started on antibiotic treatment initially with Zosyn, subsequently Cipro, Flagyl. Bowel rest with clear liquid diet, IV hydration. Acute kidney injury on presentation, creatinine 2.8, although appears with chronic kidney disease, unclear baseline. Creatinine improved down to 1.2 today. Mild hyponatremia at presentation 129, improved with IV hydration. Hypokalemia and hypomagnesemia replaced. Her symptoms on reassessment today are resolved. She has no right upper quadrant pain. No nausea or vomiting. Stool studies positive for lactoferrin, occult blood, negative bacterial and parasite panels. C. difficile negative. Urine growing 100,000 gram-negative rods. Blood culture negative. Continues on ciprofloxacin and Flagyl since has been improving and doing well with those. Discussed with surgery, with consideration of acute cholecystitis, now that she has received treatment and is improving, consideration is that it is rather safer now at the current time to continue antibiotic treatment, follow-up with surgery in office for assessment for cholecystectomy. Discussed with her and her , and they will be following up with surgery. Complete ciprofloxacin, Flagyl course (unless resistant organism noted on urine culture). Maintain low- fat diet. Asked to hold tizanidine for now to avoid possible interaction with ciprofloxacin. Asked to hold diuretics for now until reestablishes good oral intake, no further risk of dehydration, hyponatremia and other electrolyte deficiency. Physical Exam Narrative: EXAM NARRATIVE: Feels well. Feels ready to return home. Const: COMMON NORMALS: no acute distress, patient oriented x3 and alert GENERAL APPEARANCE: cooperative and comfortable ORIENTATION/CONSCIOUSNESS: Yes awake HENMT: COMMON NORMALS: oropharynx normal Neck/C-Spine: COMMON NORMALS: no JVD Resp: COMMON NORMALS: normal respiratory effort and clear to auscultation bilaterally AUSCULTATION: clear to auscultation bilaterally Cardio: COMMON NORMALS: no JVD, regular rhythm, S1 normal heart sound present, S2 normal heart sound present and No murmurs present (Cardio) RHYTHM: regular rhythm HEART SOUNDS: S1 normal heart sound present and S2 normal heart sound present GI: COMMON NORMALS: Normal to inspection, nondistended, normoactive bowel sounds present, Soft to palpation and non-tender PALPATION: Yes Soft to palpation Extremity: COMMON NORMALS: no joint enlargement and no pedal edema Neuro: COMMON NORMALS: patient oriented x3 and moves all extremities SENSORIUM/ORIENTATION: Yes alert Skin: COMMON NORMALS: no rashes or lesions noted GENERAL SKIN EXAM: no rashes or lesions noted Discharge Data Data Completed and Pending: Completed Studies During Hospitalization Category Date Time Status CT abdomen pelvis wo con [id number] Stat Cat Scan 03/26/21 11:09 Completed XR chest 1V moy ble [id number] Stat Exams 03/26/21 11:07 Completed US gall bladder 7 0174 Stat Ultrasound 03/26/21 12:51 Completed Pending at discharge Category Date Time Status Blood Culture Sta t Lab 03/26/21 11:10 Results C Reactive Protei n AM LABS Lab 03/29/21 04:00 Ordered Complete Blood Co unt w/Auto AM LABS Lab 03/29/21 04:00 Ordered Complete Blood Co unt w/Auto AM LABS Lab 03/30/21 04:00 Ordered Comprehensive Met abolic Panel AM LA BS Lab 03/29/21 04:00 Ordered Comprehensive Met abolic Panel AM SHAQ BS Lab 03/30/21 04:00 Ordered Magnesium AM LABS Lab 03/29/21 04:00 Ordered Phosphorus AM LAB S Lab 03/29/21 04:00 Ordered Procalcitonin AM LABS Lab 03/29/21 04:00 Ordered Urine Culture Sta t Lab 03/26/21 21:03 Results Labs from last 24 hours 03/28/21 03/28/21 03/28/21 05:24 05:24 05:24 WBC 4.5 RBC 2.68 L Hgb 8.8 L Hct 26.9 L MCV 100.4 H MCH 32.8 MCHC 32.7 RDW 12.6 Plt Count 358 MPV 9.9 Neut % (Auto) 54.3 Lymph % (Auto) 30.4 [place] % (Auto) 6.4 Eos % (Auto) 8.0 Baso % (Auto) 0.7 Neut # (Auto) 2.44 Lymph # (Auto) 1.4 [place] # (Auto) 0.3 Eos # (Auto) 0.4 Baso # (Auto) 0.0 Nucleated RBC % (a uto) 0 Nucleated RBCs # 0.0 Sodium 136 Potassium 2.9 L Chloride 106 Carbon Dioxide 20 L Anion Gap 12.9 BUN 13 Creatinine 1.2 H GFR Calculation Not Reportable Glucose 76 Calculated Osmolal ity 281 L Calcium 7.8 L Phosphorus 1.8 L Magnesium 1.6 L Total Bilirubin 0.2 AST 7 ALT < 5 Alkaline Phosphata se 108 H C-Reactive Protein 21.5 H Total Protein 5.6 L Albumin 3.0 L Globulin 2.6 Procalcitonin 0.09 Vitals: Last Vital Signs Temp 98.5 F 03/28/21 07:20 Pulse 59 L 03/28/21 07:20 Resp 16 03/28/21 07:20 BP 100/46 03/28/21 07:20 Pulse Ox 96 03/28/21 07:20 Discharge Plan Discharge Patient Disposition: Home Condition: Stable Prescriptions: New Cipro 500 mg tablet 500 mg PO BID Qty: 14 RF: 0 metronidazole 500 mg tablet 500 mg PO TID 7 Days Qty: 21 RF: 0 magnesium oxide 250 mg magnesium tablet 250 mg PO DAILY Qty: 90 RF: 0 Continued simvastatin 20 mg tablet 20 mg PO DAILY RF: 0 primidone 50 mg tablet 50 mg PO BID RF: 0 tizanidine 4 mg tablet 4 mg PO Q8H PRN (Reason: Spasms) RF: 0 clopidogrel 75 mg tablet 75 mg PO DAILY RF: 0 Hold Instructions: Resume on 03/23/21. amitriptyline 25 mg tablet 25 mg PO BEDTIME RF: 0 ferrous sulfate 325 mg (65 mg iron) tablet 325 mg PO BID RF: 0 nitroglycerin 0.4 mg tablet, sublingual 0.4 mg sublingual PRN PRN (Reason: Chest Pain) RF: 0 promethazine 25 mg Tablet 25 mg PO Q6H PRN (Reason: Nausea) RF: 0 omeprazole 20 mg capsule,delayed release(DR/EC) 20 mg PO DAILY Qty: 30 RF: 2 potassium chloride 10 mEq capsule, extended release 10 meq PO DAILY RF: 0 dicyclomine 10 mg capsule 10 mg PO BID RF: 0 Held triamterene-hydrochlorothiazid 37.5-25 mg tablet 1 tab PO DAILY RF: 0 Hold Instructions: Resume on 04/04/21. Discontinued Dexilant 60 mg capsule,biphase delayed releas 60 mg PO DAILY RF: 0 Discharge Orders: Discharge Order (Routine); Ordered 03/28/21 Ordered By: Reji Wallace Referrals: Elie Kern MD [Physician] - 4-7 days ([facility] will call you Monday to set up an appointment with Dr. Kern.) Laith Patel DO [Primary Care Provider] - 4-7 days (Please call Dr. Patel' office on Monday to schedule an appointment to be seen next week if possible. ) Discharge Diet: Advance as tolerated, Low Cholesterol and Low Fat Discharge Activity: Increase activity as tolerated Patient Instructions: COPD, Ciprofloxacin (By mouth), Metronidazole (By mouth), Magnesium Oxide (By mouth), Hyponatremia, Gallstones (GEN), COPD Stoplight Activity Restrictions/Additional Instructions: Please hold tizanidine while taking antibiotic ciprofloxacin. Please follow-up with surgery in office to discuss surgery to remove the gallbladder. In case of recurrence of nausea or vomiting, severe abdominal pain, any other concerning symptoms like fever, please seek medical attention. Please do not take both Dexilant and omeprazole at the same time, they are a very similar medication, take only one of them and confirmed with your primary doctor if there is a preference about which one. Please continue your potassium supplements. Add magnesium supplements. Please have your primary doctor follow-up on your kidney function, potassium and magnesium levels. Please hold your diuretic medications for now. Revisit about them with your primary doctor to discuss when it may be safe to resume. Most likely will be able to resume once there is no further nausea or vomiting, diarrhea. Please discuss with your primary doctor incidental finding of kidney blood in your stool. Please discuss testing for H. pylori. Please have your primary doctor recheck your blood count and continue work- up/treatment with regards to anemia. Please have your primary doctor follow-up final cultures of urine. Currently growing gram-negative rods suspected causing a urinary tract infection, final culture pending and should be back within the next several days. Discharge Attestations Time Spent in Discharge Care*: greater than 30 min Quality Metrics Clinical Quality Measures During this hospital stay, did patient experience: None Coding Level of Care Code Acute [facility] note Diagnoses Right upper quadrant pain R10.11 COPD (chronic obstructive pulmonary disease) J44.9 COPD type: unspecified COPD Acute renal failure (ARF) N17.9 Hyponatremia E87.1
[2021-03-28] MEDS: magnesium sulfate premix 2 GM/50 ML PIGGYBACK IV (10:54)
[2021-03-28 11:42] VITALS: BP 109/61; PULSE 64; RESP 17; TEMP 36.6; O2SAT 97
[2021-03-28 13:03] VITALS: BP 109/61; PULSE 64; RESP 17; TEMP 36.6; O2SAT 97
--- NOTE | 2021-03-31 14:45 | PC.SOCIAL ---
discharge follow up call made, spoke with patient and pts . poor historians, difficult to discuss discharge instructions. patient refused to take cipro, i ain't taken that, it has too many side effects unsure if patient has triamterene-hctz on hold, unable to get a clear answer from patient. patient wishes to make her own follow up appointment with her pcp. patient has follow up appointment with dr. orozco on 04-02, she is aware of this appointment.
== END 2021-03-28 13:04 | disposition home or self-care (01) ==
LOC: ER 14:17 → MEDSURG 17:48
PROVIDERS: Admitting Provider Family Medicine; Emergency Provider Family Medicine; PCP Family Medicine; Visit Provider Internal Medicine
DX: R10.11 Right upper quadrant pain (principal); J44.9 Chronic obstructive pulmonary disease, unspecified; N17.9 Acute kidney failure, unspecified; E87.1 Hypo-osmolality and hyponatremia; I25.10 Atherosclerotic heart disease of native coronary artery without angina pectoris; Z82.3 Family history of stroke; F17.210 Nicotine dependence, cigarettes, uncomplicated
CPT/HCPCS: 36415; 71045; 74176; 76705; 80053; 81001; 82274; 82550; 83605; 83630; 83690; 83735; 84100; 84145; 84443; 85025; 86140; 87040; 87077; 87086; 87186; 87493; 87506; 96360; 99285; C9113; G0378; J0744; J3475; J7030; J7040; S0030

== ENCOUNTER → 2021-04-08 08:45 | Outpatient (BNVA) | payer MEDICARE, MEDICAID, SELFPAY | PROVIDERS: PCP Family Medicine; Visit Provider Surgery | DX: Z11.52 Encounter for screening for COVID-19 (principal); Z20.822 Contact with and (suspected) exposure to COVID-19 | CPT/HCPCS: 87635 ==

== ENCOUNTER 2021-04-14 11:33 | Day surgery (SDC) | payer MEDICARE, MEDICAID, SELFPAY ==
[2021-04-13 15:34] VITALS: BMI 17.6
[2021-04-14] VITALS (7 sets, daily range): BP systolic 96–137; BP diastolic 40–75; PULSE 65–90; RESP 16–20; TEMP 36.3–36.7; O2SAT 92–97
--- NOTE | 2021-04-14 11:53 | W.PM.OPSUD ---
Surgery/Procedure H&P Update DATE OF PROCEDURE: April 14, 2021 DATE H&P PERFORMED: 04/02/21 H&P UPDATE INFORMATION: I have reviewed H&P completed within last 30 days, I have examined patient prior to procedure and No changes to prior documentation PREOP DIAGNOSIS: Cholelithiasis PLANNED PROCEDURE: Operation Date: 04/14/21 12:55 Proposed Procedures p Laparoscopic Cholecystectomy 75218 K81.9(Not Applicable) - Elie Kern MD
--- NOTE | 2021-04-14 12:09 | ANES.PREANE2 ---
Pre-Anesthetic Assessment Pre-Anesthetic Assessment: Height/Weight: Height 1.52 m Weight 40.823 kg Temp Pulse Resp BP Pulse Ox 98.1 F 84 18 128/53 96 04/14/21 11:56 04/14/21 11:56 04/14/21 11:56 04/14/21 11:56 04/14/21 11:56 Preop Diagnosis: Cholelithiasis Proposed Procedure: Operation Date: 04/14/21 12:55 Proposed Procedures p Laparoscopic Cholecystectomy 05148 K81.9(Not Applicable) - Elie Kern MD Was Beta Mónica taken within 24 hours: N/A Was Clonidine taken within 24 hours: N/A Last intake: Intake Last Liquid Date 04/14/21 Last Liquid Time 06:00 Last Solid Date 04/13/21 Last Solid Time 21:00 Social: Social History: Tobacco and No alcohol Exam: Pre-Anes Outpt Exam: alert, oriented x 3 and regular rate & rhythm Airway: Submandibular: WNL Cervical ROM: WNL MP: 2 Dentition: False Pulmonary: Pulmonary: COPD CV/HEM: CV/HEM: Anemia, Angina (Stable), CAD and PVD GI: GI: GERD Metabolic: Metabolic: Hyperlipidemia Anesthetic Plan: ASA status: 3 Anesthesia: General PFSH Anesthesia PFSH: Medical History Anemia Chronic kidney disease COPD (chronic obstructive pulmonary disease) Coronary artery disease Hypokalemia Orthostatic dizziness Postural orthostatic tachycardia syndrome Surgical History (Updated 04/14/21 @ 11:59 by Elie Kern MD) H/O esophagogastroduodenoscopy H/O ventral hernia repair History of 3 sections History of appendectomy Status post colonoscopy Status post laparoscopic cholecystectomy (04/14/21) Status post right inguinal hernia repair Family History Father Stroke Denies family history of Diabetes CAD (coronary artery disease) Family history of premature coronary artery disease Social History Smoking and tobacco status: current some day smoker cigarettes Packs smoked per day: 1.5 Years cigarettes smoked: 57 Quit status (tobacco): not considering quitting Alcohol intake: never Lives independently: Yes Household members: spouse Marital status: Current occupational status: retired History of recent travel: No Current gender identity: Female Data Anesthesia Cardiac Studies: Echocardiogram 03/10/21 Cardiac Event Monitor 03/17/21
[2021-04-14] MEDS: sodium chloride 0.9% 1,000 ML 30 ML IV (12:12)
[2021-04-14 12:18] LABS: Basophils % 0.6 %; Eosinophils # 0.4 10^3/uL (0.0-0.8); Eosinophils % 6.7 %; Hematocrit 33.9 % (37.0-47.0); Lymphocytes # 1.9 10^3/uL (0.8-4.8); Lymphocytes % 28.6 %; Mean Corpuscular HGB Conc 32.4 g/dL (30.0-36.0); Mean Corpuscular Hemoglobin 33.4 pg (28.0-34.0); Mean Platelet Volume 9.5 fL (7.4-10.4); Monocytes # 0.3 10^3/uL (0.2-0.9); Monocytes % 4.4 %; Neutrophils # 3.93 10^3/uL (1.8-7.7); Neutrophils % 59.5 %; Nucleated Red Blood Cells % 0 %; Platelet Count 433 10^3/cmm (130-400); Red Blood Count 3.29 10^6/uL (4.1-5.3); Red Cell Distribution Width 12.4 % (12.1-15.1); White Blood Count 6.6 10^3/uL (4.0-10.0)
[2021-04-14 12:58] LABS: Blood Urea Nitrogen 10 mg/dL (8-23); Calcium 8.5 mg/dL (8.5-10.5); Carbon Dioxide 23 mmol/L (22-29); Chloride 93 mmol/L (98-107); Glucose 68 mg/dL (65-115); Osmolality Calculated 267 mOsm/kg (285-295); Sodium 130 mmol/L (136-145)
[2021-04-14 13:03] LABS: Anion Gap 19.4 (5-19); Potassium 5.4 mmol/L (3.5-5.1)
[2021-04-14] MEDS: levofloxacin-dextrose 5 % 500 MG/100 ML PREMIX 100 MG IV (13:10)
--- NOTE | 2021-04-14 14:22 | PM.OP ---
Operative Report Date of procedure: April 14, 2021 Pre-op Diagnosis: Symptomatic cholelithiasis Post-op Diagnosis: Cholelithiasis Procedure Done: Laparoscopic cholecystectomy Specimens removed/disposition: Gallbladder Surgeon: Elie Kern Anesthesia: General Condition: stable Disposition: PACU Procedure: The patient was taken to the operating room and was intubated under general anesthesia. After the antibiotic had been administered, the abdomen was prepped and draped in a sterile manner. Using a #15 blade, a 1 centimeter infraumbilical curvilinear incision was made and using an open Dasia technique the peritoneal cavity was entered. A 10 millimeter port was placed and 15 millimeters of pneumoperitoneum was created. A 10 millimeter, 30 degrees scope was then introduced. Three 5 millimeter ports were placed in the epigastric, midclavicular and the anterior axillary line two fingerbreadths below the costal margin on the right side under the direct visualization. Ratcheted forceps were introduced into the lateral most port and was used to retract the fundus of the gallbladder cephalad and using forceps the infundibulum of the gallbladder was retracted laterally. Using L-hook cautery the peritoneum overlying the Calot's triangle was opened medially and laterally until the cystic duct and the cystic artery were skeletonized. Dissection was carried along the body of the gallbladder and after ensuring critical view of safety, 4 clips applied on the cystic duct and 3 clips applied on the cystic artery and cut leaving, 3 clips on the remaining portion of the duct and 2 clips on the remaining portion of the artery. The rest of the gallbladder was dissected off the liver using L-hook cautery. There was no bleeding or bile leaking noted from the gallbladder fossa and the clips appeared to be in place. An EndoCatch bag was introduced to remove the gallbladder. All the ports were removed under direct visualization and there was no bleeding noted from the port sites. The fascia of the umbilicus was closed using [id number] Vicryl sutures and the subcutaneous tissue was approximated using 3-0 Vicryl sutures. The skin at all four ports were closed using 4-0 Monocryl and Dermabond. A total of 10 millimeters of 0.5% Marcaine was infiltrated around the port sites. The patient was stable throughout the procedure.
[2021-04-14] MEDS: HYDROcodone-acetaminophen 5-325 mg Tablet 1 TAB PO (15:08)
--- NOTE | 2021-04-14 15:43 | ANE.PACU2 ---
Inpatient post-anesthesia follow up: Airway intact: Yes Vital signs: Temperature 97.8 F Pulse Rate 65 Respiratory Rate 18 Blood Pressure 137/59 Pulse Oximetry 95 Oxygen Delivery Me thod Room Air Oxygen Flow Rate Fraction of Inspir ed Oxygen Hydration adequate: Yes Nausea and vomiting: No Pain level: 3 Mental status: Baseline
== END 2021-04-14 15:34 | disposition home or self-care (01) ==
PROVIDERS: Anesthesiology; PCP Family Medicine; Visit Provider Surgery
PROC: 0FT44ZZ Resection of Gallbladder, Percutaneous Endoscopic Approach (ICD-10-PCS; CPT 47562; principal; 2021-04-14 12:55)
DX: K81.1 Chronic cholecystitis (principal); E78.5 Hyperlipidemia, unspecified; I25.10 Atherosclerotic heart disease of native coronary artery without angina pectoris; I73.9 Peripheral vascular disease, unspecified; N18.9 Chronic kidney disease, unspecified; J44.9 Chronic obstructive pulmonary disease, unspecified; F17.210 Nicotine dependence, cigarettes, uncomplicated; Z79.02 Long term (current) use of antithrombotics/antiplatelets
CPT/HCPCS: 47562; 36415; 80048; 85025; 88304; J1956; J2405; J2704; J2710; J3010; J3490; J7030

== ENCOUNTER 2021-07-09 10:35 | Inpatient (IN) | payer MEDICARE, MEDICAID, SELFPAY ==
[2021-07-09] VITALS (22 sets, daily range): BP systolic 109–128; BP diastolic 53–74; PULSE 57–77; RESP 10–20; TEMP 36.3–36.5; O2SAT 95–100; BMI 17.4; BMI 17.1
--- NOTE | 2021-07-09 10:56 | XR_ITS ---
WS: [id number] Exam: XR chest 1V portable [id number] Date/Time of Exam: 07/09/2021 11:06 AM Reason For Exam: weakness, cough Comparison 03/26/2021. The lungs are fully expanded. No acute infiltrates. There are chronic interstitial changes in the low er lung zones bilaterally. Normal cardiomediastinal silhouette. Bony structures are intact. Several o ld upper left rib fractures noted. XR/XR chest 1V portable [id number] IMPRESSION: 1. Chronic interstitial changes in the lung bases. 2. No acute process noted.
--- NOTE | 2021-07-09 11:05 | ED_ITS ---
HPI - Nausea/Vomiting/Diarrhea General: Chief complaint: Nausea/Vomiting/Diarrhea Stated complaint: not responding as needed Time Seen by Provider: 07/09/21 11:00 History of Present Illness: HPI Narrative: Ms López is a 75-year-old lady with reported history of CKD, COPD, CAD who presents to the emergency department due to recurrent episodes of nausea and vo miting. Symptoms have been going on for approximately 6 to 8 weeks. Patient reports that symptoms were subacute in onset without specific known provoking factor. She did previously have cholecystectomy however had a number so normal weeks. Since that time she has had vomiting which is primarily food contents and nonbloody basically anytime she eats. In addition today she had multiple episodes of unresponsiveness. She denies specific associated prodrome or frequent episodes in the past. Overall the course of symptoms has persisted. Intensity is moderate to severe. No infectious symptoms. No significant abdominal pain. No other specific changes in health, exacerbating, or relieving factors identified. MD elicited complaint: nausea and vomiting Pertinent past history: other Onset (ago): week(s) Description of vomiting: food contents Associated nausea: Yes Associated abdominal pain: No Location of pain: None Associated symtoms: Reports nausea and syncope (2 episodes just today) Review of Systems General: Reports: 10 or more systems reviewed and unremarkable except in HPI and below Card: Reports: syncope (2 episodes just today) GI: Reports: nausea PFSH ED PFSH: Medical History Anemia Chronic kidney disease COPD (chronic obstructive pulmonary disease) Coronary artery disease Hypokalemia Orthostatic dizziness Postural orthostatic tachycardia syndrome Surgical History H/O esophagogastroduodenoscopy H/O ventral hernia repair History of 3 sections History of appendectomy Status post colonoscopy Status post laparoscopic cholecystectomy (04/14/21) Status post right inguinal hernia repair Family History Father Stroke Denies family history of Diabetes CAD (coronary artery disease) Family history of premature coronary artery disease Social History Quit status (tobacco): not considering quitting Alcohol intake: never Lives independently: Yes Household members: spouse Marital status: Current occupational status: retired History of recent travel: No Current gender identity: Female Physical Exam Const: COMMON NORMALS: alert GENERAL APPEARANCE: cooperative and frail appearing HENMT: COMMON NORMALS: normocephalic and atraumatic HEAD & SCALP: normocephalic and atraumatic THROAT: posterior oropharynx normal Eye: COMMON NORMALS: conjunctivae normal CONJUNCTIVA: Yes conjunctivae normal SCLERA: sclerae normal Neck/C-Spine: COMMON NORMALS: supple GENERAL: Yes trachea midline Resp: COMMON NORMALS: normal respiratory effort EFFORT & INSPECTION: Yes able to speak in complete sentences Cardio: COMMON NORMALS: regular rate and regular rhythm RATE: regular rate RHYTHM: regular rhythm GI: COMMON NORMALS: Soft to palpation PALPATION: Yes Soft to palpation and No Tenderness to palpation present (GI) PERCUSSION: normal to percussion Extremity: GENERAL: Yes normal exam except as noted and No edema Neuro: COMMON NORMALS: moves all extremities SENSORIUM/ORIENTATION: Yes alert and No Orientation impaired Psych: COMMON NORMALS: mental status grossly normal and Normal thought process present THOUGHT PROCESS: Normal thought process present Course ED course: - Patient was seen and evaluated by me at bedside - Patient placed on cardiac monitors, IV access obtained - Initial evaluation notable for exam as above, no focal neurologic findings, somewhat frail and generally ill-appearing. -Labs and imaging ordered. - Called back in the room for decreased level of consciousness. Mildly resp onsive to painful stimuli though does blink bilaterally. No obvious focal neurologic symptoms presently or on initial exam. No seizure-like episodes observed. Returned back to alert and oriented and fully responsive after approximately 5 minutes. - Labs notable for mild leukocytosis, hemoglobin reflecting normocytic anemia. Metabolic panel notable for marked hyponatremia and hypokalemia as well as hypochloremia of unclear etiology. CHRISTELLE present. - Patient borderline for requiring hypertonic saline bolus however I will defer this at this time as patient has returned mental status fernandez and did not have seizure-like episode. IV fluids at controlled rate for sodium correction ordered - Imaging notable for no acute intracranial abnormality. No significant chest x-ray abnormalities. CT abdomen pelvis with moderate constipation however no obvious other cause for recurrent nausea and vomiting. Air in the bladder prior to instrumentation of unclear etiology. Antibiotic dose ordered for concern over urinary tract infection. - Upon serial reexamination after treatment the patient was similar without recurrence of mental status change - Based on patient history, evaluation, labs, and imaging as interpreted the most likely cause of the patient's condition is profound electrolyte abnor malities of somewhat unclear etiology however in the context of nausea and vomiting. - Digoxin level sent, some symptoms may be a side effect of toxicity however results pending at time of admission. - The results of ED evaluation were discussed with the patient including plan for admission due to requirement for level of care not available if discharged to prevent significant worsening/deterioration. - Hospitalist service contacted and agreed admit the patient. - Patient was admitted without further deterioration or significant events. Note: Click bubbles or prepopulated morgan in note writing are used for assistance with data collection and billing and are inherently more limited than narrative and other text portions of this note. Please use narrative for additional clinical history and defer to narrative/free test for any case of contradictory information. If information appears in only free text or click bubble it should be considered present or absent as reported. Please contact note music writer for clarifications of clinical information or contradictory information. MDM is a brief summary, contradictory or erroneous seeming information should be clarified and full note should be reviewed. Vital Signs: Vital signs: Vital Signs Temperature 98.1 F 07/12/21 20:00 Pulse Rate 78 07/13/21 10:02 Respiratory Rate 16 07/13/21 08:00 Blood Pressure 139/65 07/13/21 10:02 Pulse Oximetry 99 07/13/21 10:02 MDM - Nausea/Vomiting/Diarrhea MDM Narrative Medical decision making narrative: 75-year-old lady with history of COPD, CKD, and cardiac arrhythmia on digoxin presenting with recurrent episodes of nausea and vomiting for approximately 8 weeks. In addition developed syncope of unclear etiology today x2 prior to arrival. Had additional episode without obvious seizure activity today. Labs notable for profound hyponatremia and hypokalemia. CHRISTELLE also present. Digoxin level pending. Patient requires inpatient admission for further management. Medical Records Attestation: I reviewed the patient's medical records. Lab Data Attestation: I reviewed the patient's lab results. Result diagrams: 07/13/21 02:32 07/13/21 02:32 Labs: Lab Results 07/09/21 07/09/21 07/09/21 11:52 11:55 11:55 WBC 10.4 10^3/uL H 10^3/uL (4.0-10.0) RBC 3.26 10^6/uL L 10^6/uL (4.1-5.3) Hgb 10.8 g/dL L g/dL (11.5-15.3) Hct 29.9 % L % (37.0-47.0) MCV 91.7 fl fl (81-99) MCH 33.1 pg pg (28.0-34.0) MCHC 36.1 g/dL H g/dL (30.0-36.0) RDW 11.3 % L % (12.1-15.1) Plt Count 511 10^3/cmm H 10^3/cmm (130-400) MPV 8.8 fL fL (7.4-10.4) Neut % (Auto) 80.9 % % Lymph % (Auto) 14.0 % % [place] % (Auto) 4.0 % % Eos % (Auto) 0.5 % % Baso % (Auto) 0.3 % % Neut # (Auto) 8.42 10^3/uL H 10^3/uL (1.8-7.7) Lymph # (Auto) 1.5 10^3/uL 10^3/uL (0.8-4.8) [place] # (Auto) 0.4 10^3/uL 10^3/uL (0.2-0.9) Eos # (Auto) 0.1 10^3/uL 10^3/uL (0.0-0.8) Baso # (Auto) 0.0 10^3/uL 10^3/uL (0.0-0.1) Nucleated RBC % (auto) 0 % % Nucleated RBCs # 0.0 /100WBC /100WBC Specimen Type Sample Site ABG pH ABG pCO2 ABG pO2 ABG HCO3 ABG Base Excess Jose Alejandro Test Hematocrit O2 Delivery Device FiO2 Deaf And Hard Of Hearing Teacher ID Sodium 113 mmol/L L* mmol/L (136-145) Potassium 2.4 mmol/L L* mmol/L (3.5-5.1) Chloride 68 mmol/L L mmol/L (98-107) Carbon Dioxide 26 mmol/L mmol/L (22-29) Anion Gap 21.4 H (5-19) BUN 32 mg/dL H mg/dL (8-23) Creatinine 2.0 mg/dL H mg/dL (0.5-0.9) GFR Calculation Not Reportable Glucose 94 mg/dL mg/dL (65-115) POC Glucose 118 mg/dL H mg/dL (70-110) Calculated Osmolality 243 mOsm/kg L mOsm/kg (285-295) Lactic Acid Calcium 8.3 mg/dL L mg/dL (8.5-10.5) Magnesium Total Bilirubin 0.2 mg/dL mg/dL (0.15-1.2) AST 13 U/L U/L (0-32) ALT < 5 U/L U/L (0-33) Alkaline Phosphatase 130 IU/L H IU/L (35-105) Troponin T Baseline Total Protein 7.1 g/dL g/dL (6.6-8.7) Albumin 4.2 g/dL g/dL (3.5-5.2) Globulin 2.9 g/dL g/dL (1.3-4.6) TSH Random Cortisol 07/09/21 07/09/21 07/09/21 11:55 11:55 11:55 WBC RBC Hgb Hct MCV MCH MCHC RDW Plt Count MPV Neut % (Auto) Lymph % (Auto) [place] % (Auto) Eos % (Auto) Baso % (Auto) Neut # (Auto) Lymph # (Auto) [place] # (Auto) Eos # (Auto) Baso # (Auto) Nucleated RBC % (auto) Nucleated RBCs # Specimen Type Sample Site ABG pH ABG pCO2 ABG pO2 ABG HCO3 ABG Base Excess Jose Alejandro Test Hematocrit O2 Delivery Device FiO2 Deaf And Hard Of Hearing Teacher ID Sodium Potassium Chloride Carbon Dioxide Anion Gap BUN Creatinine GFR Calculation Glucose POC Glucose Calculated Osmolality Lactic Acid Calcium Magnesium 2.4 mg/dL H mg/dL (1.7-2.3) Total Bilirubin AST ALT Alkaline Phosphatase Troponin T Baseline 21 ng/L H ng/L (0-10) Total Protein Albumin Globulin TSH Random Cortisol 21.84 ug/dL H ug/dL (2.47-19.5) 07/09/21 07/09/21 07/09/21 11:55 12:19 12:58 WBC RBC Hgb Hct MCV MCH MCHC RDW Plt Count MPV Neut % (Auto) Lymph % (Auto) [place] % (Auto) Eos % (Auto) Baso % (Auto) Neut # (Auto) Lymph # (Auto) [place] # (Auto) Eos # (Auto) Baso # (Auto) Nucleated RBC % (auto) Nucleated RBCs # Specimen Type Arterial Sample Site Radial, left ABG pH 7.54 H (7.35-7.45) ABG pCO2 40.0 mmHg mmHg (35-45) ABG pO2 90.8 mmHg mmHg (80.0-100.0) ABG HCO3 34.0 mmol/L H mmol/L (22-26) ABG Base Excess 10.6 mmol/L H mmol/L (-2.0-2.0) Jose Alejandro Test Pos Hematocrit 31.3 % L % (37-47) O2 Delivery Device Room air FiO2 21.0 % % Deaf And Hard Of Hearing Teacher ID [place] Sodium Potassium Chloride Carbon Dioxide Anion Gap BUN Creatinine GFR Calculation Glucose POC Glucose Calculated Osmolality Lactic Acid 1.4 mmol/L mmol/L (0.5-2.2) Calcium Magnesium Total Bilirubin AST ALT Alkaline Phosphatase Troponin T Baseline Total Protein Albumin Globulin TSH 0.79 uIU/mL uIU/mL (0.27-4.20) Random Cortisol EKG Data^ EKG 1: Attestation: I personally reviewed and interpreted this EKG as follows: EKG interpretation date: 07/09/21 EKG interpretation time: 11:50 Ischemic changes: non-specific ST-T wave changes Interpretation: Twelve-lead EKG shows a regular rhythm at a rate of 65. MN interval 166, QRS duration 86, QTc four nine. Normal axis. Interpretation: Sinus rhythm. Nonspecific ST segment abnormalities. Critical Care Time Critical Care Time: Critical Care Time: Yes Total Critical Care Time: 35 Attestation: Due to a high probability of clinically significant, possibly life threatening deterioration, the patient required my highest level of attention and preparedness to intervene emergently and I personally spent this critical care time directly and personally managing the patient. This critical care time included obtaining a history; examining the patient; pulse oximetry; ordering and review of laboratory and imaging studies; arranging urgent treatment with development of a management plan; evaluation of patient's response to treatment; frequent reassessment; and, discussions with other providers as applicable. It was exclusive of separately billable procedures. Discharge Plan Discharge Patient Disposition: Admitted As Inpatient Admit Provider: Reji Wallace Clinical Impression: Syncope, CHRISTELLE (acute kidney injury), Hypokalemia, Hyponatremia, Nausea and vomiting Condition: Stable Discharge Diet: Advance as tolerated Discharge Activity: Resume usual activity and Increase activity as tolerated Coding Level of Care Code ED Early Childhood Coordinator for [employer] Fwd Exam Comprehensive
--- NOTE | 2021-07-09 11:23 | ECG_ITS ---
[facility] Test Date: 2021-07-09 Pat Name: Maile López Department: Room: Gender: Female Maintenance Custodian: : 1945 Requested By: Tera Pastrana Order Number: [id number] Summer MD: Adria Mcdonald M.D. Measurements Intervals [place] Rate: 65 P: 81 NE: 166 QRS: 39 QRSD: 86 T: 50 QT: 397 QTc: 415 Interpretive Statements SINUS RHYTHM POSSIBLE LEFT ATRIAL ENLARGEMENT [-0.1mV P-WAVE IN V1/V2] POSSIBLE RIGHT VENTRICULAR CONDUCTION DELAY [RSR (QR) IN V1/V2] ST DEVIATION AND MODERATE T-WAVE ABNORMALITY, CONSIDER LATERAL ISCHEMIA [-0.1+ mV T-WAVE IN I/aVL/V5/V6] Compared to ECG 03/09/2021 15:46:36 T-wave abnormality now present Possible ischemia now present First degree AV block no longer present Electronically Signed On 07-10-2021 14:09:29 MACHINE PRECISION ETCHER by Adria Mcdonald M.D. [email or web address]
--- NOTE | 2021-07-09 11:23 | CT_ITS ---
WS: [id number] CT ABDOMEN AND PELVIS NONCONTRAST HISTORY: Nausea and vomiting. Altered mental status. TECHNIQUE: Imaging performed through the abdomen and pelvis. Coronal and sagittal reformats are submi tted. All CT scans at [facility] use at least one of these dose optimization techniques: auto mated exposure control; mA and/or kV adjustment per patient size (includes targeted exams where dose is matched to clinical indication); or iterative reconstruction. DLP: 636.82 mGy.cm COMPARISON: 03/26/2021 Lower thorax: Chronic emphysematous changes at the lung bases. Interstitial thickening and possible e eran changes of honeycombing at the lung bases. No mass or nodule. Normal size heart. Moderate size h iatal hernia. Liver: Normal size liver. Cannot exclude lesions without IV contrast. Gallbladder: Prior cholecystectomy. Pancreas: Normal size and attenuation. Normal pancreatic duct. No pancreatitis or mass. Spleen: Normal. Adrenal glands: Very mild hyperplasia of the LEFT adrenal gland. Right kidney: Nonobstructing 2 mm calcification in the pelvis. No ureteral obstruction. Left kidney: Mild perinephric stranding. No ureteral obstruction. Aorta: Mild atherosclerosis abdominal aorta with no aneurysm. No free fluid, intraperitoneal air or significant lymphadenopathy. GI tract: Diffuse mild constipation with overlapping loops of colon. No obstructive pattern or mucosa l thickening. The appendix has been surgically removed as per history. Abdominal wall: Negative. No hernia. Pelvis: Urinary bladder is moderately distended. There is a moderate amount of air within the bladder . No free fluid in the pelvis. Atrophic uterus and ovaries as expected for age. Osseous structures: Unremarkable. CT/CT abdomen pelvis wo con [id number] IMPRESSION: 1. Moderate constipation with no obstructive pattern. 2. Air within the urinary bladder. May be from recent urinary bladder catheter ization. If no recent catheterization consider infection by gas producing organ isms or enterovesical fistula. 3. Prior cholecystectomy and appendectomy. 4. Further evaluation of the visceral organs limited without IV contrast.
--- NOTE | 2021-07-09 11:23 | CT_ITS ---
WS: [id number] CT HEAD NONCONTRAST HISTORY: syncope TECHNIQUE: Contiguous axial imaging performed through the brain in 2.5 mm imaging. Bone and soft tiss ue windows. Sagittal and coronal reformats reviewed. All CT scans at [facility] use at least one of these dose optimization techniques: automated exposure control; mA and/or kV adjustment per pa tient size (includes targeted exams where dose is matched to clinical indication); or iterative recon struction. DLP: 647.15 mGy.cm COMPARISON: 11/28/2005 No acute intracranial hemorrhage, midline shift or mass effect. Mild atrophy and mild chronic microvascular ischemic disease. No focal area of sulcal effacement. Ventricles: Normal size with no hydrocephalus. Paranasal sinuses: As visualized are clear. Mastoid air cells: Well pneumatized. Calvarium and scalp: Skull is intact with no soft tissue edema or swelling. CT/CT head wo con* [id number] IMPRESSION: 1. No acute intracranial hemorrhage or edema. 2. Mild atrophy and mild chronic microvascular ischemic disease.
[2021-07-09 11:55] LABS: Glucose Point of Care 118 mg/dL (70-110)
[2021-07-09 12:05] LABS: Basophils % 0.3 %; Eosinophils # 0.1 10^3/uL (0.0-0.8); Eosinophils % 0.5 %; Hematocrit 29.9 % (37.0-47.0); Hemoglobin 10.8 g/dL (11.5-15.3); Lymphocytes # 1.5 10^3/uL (0.8-4.8); Mean Corpuscular HGB Conc 36.1 g/dL (30.0-36.0); Mean Corpuscular Hemoglobin 33.1 pg (28.0-34.0); Mean Corpuscular Volume 91.7 fl (81-99); Mean Platelet Volume 8.8 fL (7.4-10.4); Monocytes # 0.4 10^3/uL (0.2-0.9); Neutrophils # 8.42 10^3/uL (1.8-7.7); Neutrophils % 80.9 %; Nucleated Red Blood Cells % 0 %; Platelet Count 511 10^3/cmm (130-400); Red Blood Count 3.26 10^6/uL (4.1-5.3); Red Cell Distribution Width 11.3 % (12.1-15.1); White Blood Count 10.4 10^3/uL (4.0-10.0)
[2021-07-09 12:23] LABS: Alanine Aminotransferase < 5 U/L (0-33); Albumin Level 4.2 g/dL (3.5-5.2); Alkaline Phosphatase 130 IU/L (35-105); Aspartate Amino Transferase 13 U/L (0-32); Blood Urea Nitrogen 32 mg/dL (8-23); Calcium 8.3 mg/dL (8.5-10.5); Carbon Dioxide 26 mmol/L (22-29); Chloride 68 mmol/L (98-107); Globulin 2.9 g/dL (1.3-4.6); Glucose 94 mg/dL (65-115); Osmolality Calculated 243 mOsm/kg (285-295); Total Bilirubin 0.2 mg/dL (0.15-1.2); Total Protein 7.1 g/dL (6.6-8.7); Troponin(5th) Baseline 21 ng/L (0-10)
[2021-07-09 12:31] LABS: ABG PH Result 7.54 (7.35-7.45); Arterial Blood Gas Hematocrit 31.3 % (37-47); Base Excess ABG 10.6 mmol/L (-2.0-2.0); Blood Gas Allen Test Pos; Blood Gas Sample Type Arterial; PO2 ABG 90.8 mmHg (80.0-100.0)
[2021-07-09 12:32] LABS: Blood Gas Operator Identificat MONRO; Blood Gas Sample Site Radial, left; Oxygen Device ROOM AIR
[2021-07-09 12:37] LABS: Anion Gap 21.4 (5-19); Sodium 113 mmol/L (136-145)
[2021-07-09 12:38] LABS: Potassium 2.4 mmol/L (3.5-5.1)
[2021-07-09 12:58] LABS: Magnesium 2.4 mg/dL (1.7-2.3)
[2021-07-09 13:29] LABS: Lactic Sepsis W/Reflex 1.4 mmol/L (0.5-2.2)
[2021-07-09] MEDS: sodium chloride 0.9% 1,000 ML 100 ML IV (13:41)
[2021-07-09] MEDS: lidocaine 1% 5 ML in potassium chloride premix 100 ML 25 ML IV ×2 (13:44→21:09)
[2021-07-09 15:18] LABS: Troponin 5 2HR 18.51 ng/L (0-10)
[2021-07-09 15:20] LABS: Digoxin < 0.3 ng/mL (0.6-1.2); Troponin 5 2HR Delta -2.49 ABS# (0-10)
--- NOTE | 2021-07-09 15:50 | P.HP_ITS ---
Providers/Chief Complaint Primary Care Provider: Laith Patel Chief Complaint: not responding as needed History of Present Illness Pleasant 75-year-old lady with history of COPD, CAD (reports CVA a long time ago), POTS, CKD, anemia, status postcholecystectomy on 04/14, states about 4 weeks ago started having recurrent vomiting, having difficulty keeping down any food, no matter solid or liquid. Denies any abdominal pain, but food just wants to lay down. Denies symptoms of gastroparesis. Denies diarrhea, last bowel movement was yesterday. Never had any endoscopic evaluation. Denies NSAIDs, denies alcohol. Denies dizziness, vertigo, double vision or blurred vision. In ER noted with severe hyponatremia, sodium 113, hypokalemia, potassium 2.4. Dehydrated. Received potassium replacement. This morning also noted episode of unresponsiveness while in the car. Additionally noted briefly unresponsive in ER for 2-3 minutes per report, no seizure-like activity noted. She denies any prodromal symptoms. Has not had any chest pain or pressure, no shortness of breath. Not feeling dizzy or lightheaded beforehand, and states had come to pretty rapidly. Review of Systems Const: Reports: fatigue; Denies: fever(s), chills, body aches or malaise Eyes: Denies: change in vision or eye redness ENMT: Denies: throat pain, oral sores or ear or mastoid pain Card: Reports: syncope; Denies: chest pain, edema, pre-syncope or dyspnea on exertion Resp: Denies: dyspnea, productive cough, change in phlegm color or hemoptysis GI: Reports: nausea and vomiting; Denies: abdominal pain, diarrhea, constipation, hematochezia or melena : Denies: flank pain, urinary frequency or hematuria Musc: Denies: back pain, joint swelling or joint redness Skin/Breast: Denies: rash, sores or new lesions Neuro: Denies: headache(s), numbness in extremities, weakness in extremities, dizziness, confusion or seizure-like activity Endo: Denies: polyuria or polydipsia Misael/Lymph: Denies: easy bleeding or purpura All/Imm: Denies: urticaria, throat swelling or tongue swelling Medications/Allergies Home Medications Medication Instructions Recorded Confirmed Last Taken Type amitriptyline 25 mg PO BEDTIME 09/09/19 07/09/21 04/13/21 History clopidogrel 75 mg PO DAILY 09/09/19 07/09/21 04/13/21 History nitroglycerin 0.4 mg SUBLINGUAL PRN PRN 09/09/19 07/09/21 Unknown History tizanidine 4 mg PO Q8H PRN 09/09/19 07/09/21 09/09/19 History primidone 50 mg tablet 50 mg PO BID tab 07/16/20 07/09/21 04/13/21 History simvastatin 20 mg tablet 20 mg PO DAILY 01/04/21 07/09/21 04/13/21 History triamterene-hydrochlorothiazid 1 tab PO DAILY 03/26/21 07/09/21 03/26/21 06:00 History Dexilant 60 mg PO DAILY 04/13/21 07/09/21 04/13/21 History docusate sodium [Colace] 100 mg PO BID #30 cap 04/14/21 07/09/21 Unknown Rx dicyclomine 20 mg PO Q6H PRN 07/09/21 07/09/21 Unknown History digoxin 125 mcg PO DAILY 07/09/21 07/09/21 Unknown History diltiazem HCl 60 mg PO BID 07/09/21 07/09/21 Unknown History ferrous sulfate [FeroSul] 325 mg PO BID 07/09/21 07/09/21 Unknown History furosemide 20 mg PO BID 07/09/21 07/09/21 Unknown History isosorbide dinitrate 5 mg PO BID 07/09/21 07/09/21 Unknown History metoprolol succinate 12.5 mg PO DAILY 07/09/21 07/09/21 Unknown History naproxen 500 mg PO BID PRN 07/09/21 07/09/21 Unknown History omeprazole 40 mg PO DAILY 07/09/21 07/09/21 Unknown History Allergies Allergy/AdvReac Type Severity Reaction Status Date / Time iodine Allergy Unknown Verified 07/09/21 10:38 Penicillins Allergy ALGY-Anaphy Verified 07/09/21 10:38 laxis PFSH Acute PFSH: Medical History Anemia Chronic kidney disease COPD (chronic obstructive pulmonary disease) Coronary artery disease Hypokalemia Orthostatic dizziness Postural orthostatic tachycardia syndrome Surgical History H/O esophagogastroduodenoscopy H/O ventral hernia repair History of 3 sections History of appendectomy Status post colonoscopy Status post laparoscopic cholecystectomy (04/14/21) Status post right inguinal hernia repair Family History Father Stroke Denies family history of Diabetes CAD (coronary artery disease) Family history of premature coronary artery disease Social History Quit status (tobacco): not considering quitting Alcohol intake: never Lives independently: Yes Household members: spouse Marital status: Current occupational status: retired History of recent travel: No Current gender identity: Female Vitals/I&O/Wt Last Vital Signs Temp 97.7 F 07/09/21 10:38 Pulse 76 07/09/21 10:38 Resp 14 07/09/21 10:38 BP 116/74 07/09/21 10:38 Pulse Ox 99 07/09/21 10:38 Weight last 48 hrs Weight 40.37 kg Physical Exam Const: COMMON NORMALS: no acute distress and patient oriented x3 HENMT: COMMON NORMALS: oropharynx normal Neck/C-Spine: COMMON NORMALS: no JVD Resp: COMMON NORMALS: normal respiratory effort and clear to auscultation bilaterally AUSCULTATION: clear to auscultation bilaterally Cardio: COMMON NORMALS: no JVD, regular rhythm, S1 normal heart sound present, S2 normal heart sound present and No murmurs present (Cardio) RHYTHM: regular rhythm HEART SOUNDS: S1 normal heart sound present and S2 normal heart sound present GI: COMMON NORMALS: Normal to inspection, nondistended, normoactive bowel sounds present, Soft to palpation and non-tender PALPATION: Yes Soft to palpation Extremity: COMMON NORMALS: no joint enlargement and no pedal edema Neuro: COMMON NORMALS: patient oriented x3 and moves all extremities Skin: COMMON NORMALS: no rashes or lesions noted GENERAL SKIN EXAM: no bryan hes or lesions noted Data : 07/09/21 11:55 07/09/21 11:55 A&P Assessment and plan (1) Hyponatremia: Severe hyponatremia of unknown chronicity, with 4 weeks duration of GI symptoms possibly chronic, sodium 113. Was started on IV hydration with sodium chloride. Hold additional IVF for now. Suspected hypovolemic hyponatremia secondary to vomiting, poor oral intake. Recheck sodium level. Check TSH, serum cortisol. Status: Acute (2) Hypokalemia: Receiving replacement. Follow-up BMP. Status: Acute (3) Syncope: Episodes of unresponsiveness without prodromal symptoms. No chest pain or pressure, no palpitations. No seizure-like activity. Recovers rather quickly. 1 episode this morning, 1 in ER. Monitor on telemetry due to possible arrhythmia with hypokalemia. Other consideration may be seizure activity possibly with withdrawal from primidone. Orthostatic precautions. At some point will need to assess. Blood pressures. Respiratory. Status: Acute (4) CHRISTELLE (acute kidney injury): CKD with Baseline creatinine difficult to determine but in March was 2.8-1.9-1.2-1. Appears possible CHRISTELLE on CKD, possible prerenal secondary to poor oral intake. Denies NSAID use. Received gentle fluid challenge. Monitor renal function, INR. Continue interm ittent IV fluid support until able to tolerate oral intake. Status: Acute (5) Nausea and vomiting: From hemorrhoids, ice chips and sips. Intermittent IV hydration. Pantoprazole IV. Zofran as needed. Has never had an endoscopy. Will need evaluation at some point for possible gastritis, but is also a smoker currently to exclude malignancy and other abnormality. CT head without acute intracranial hemorrhage or edema. Mild atrophy and mild chronic microvascular ischemic disease. CT abdomen pelvis with moderate constipation with no obstructive pattern. Air within the urinary bladder, UA ordered and pending. Received dose of Rocephin in ER. Cholecystectomy, appendectomy. Status: Acute Additional A&P Information Abnormal troponin: Follow troponin EKG series. Monitor on telemetry. No symptoms of chest pain. Stress test August 2020 unremarkable. Other chronic medical problems noted Current smoker, 1 pack/day, encourage cessation nicotine patch as needed. COPD POTS CAD Schedule Anemia Attestations Medical Necessity Statement*: Admission of over 2 midnights is anticipated for assessment of management of severe hyponatremia of unknown chronicity possibly chronic, hypokalemia lady with recurrent nausea and vomiting intolerance of oral intake and medications. Coding Level of Care Code Acute Shell Mold Bonder for [facility] Diagnoses Hyponatremia E87.1 Hypokalemia E87.6 Syncope R55 CHRISTELLE (acute kidney injury) N17.9 Nausea and vomiting R11.2
[2021-07-09 16:47] LABS: Cortisol Random 21.84 ug/dL (2.47-19.5)
[2021-07-09 18:46] LABS: Troponin 5 6HR 17.02 ng/L (0-10)
[2021-07-09 18:47] LABS: Thyroid Stimulating Hormone 0.79 uIU/mL (0.27-4.20)
[2021-07-09 18:54] LABS: Anion Gap 18.1 (5-19); Blood Urea Nitrogen 34 mg/dL (8-23); Calcium 8.1 mg/dL (8.5-10.5); Carbon Dioxide 28 mmol/L (22-29); Chloride 73 mmol/L (98-107); Glucose 83 mg/dL (65-115); Osmolality Calculated 249 mOsm/kg (285-295); Potassium 3.1 mmol/L (3.5-5.1); Troponin 5 6HR Delta -3.98 ng/L (0-12)
[2021-07-09 19:11] LABS: Sodium 116 mmol/L (136-145)
[2021-07-09 19:24] LABS: Adenovirus Not Detected (NOT DETECT); Chlamydia Pneumoniae Not Detected (NOT DETECT); Coronavirus 229E,HKU1,NL63,OC4 Not Detected (NOT DETECT); Human Metapneumovirus Not Detected (NOT DETECT); Human Rhinovirus/Enterovirus Not Detected (NOT DETECT); Influenza A Not Detected (NOT DETECT); Influenza A H1 Not Detected (NOT DETECT); Influenza A H1-2009 Not Detected (NOT DETECT); Influenza A H3 Not Detected (NOT DETECT); Influenza B Not Detected (NOT DETECT); Mycoplasma Pneumoniae Not Detected (NOT DETECT); Parainfluenza Virus Type 1 Not Detected (NOT DETECT); Parainfluenza Virus Type 2 Not Detected (NOT DETECT); Parainfluenza Virus Type 3 Not Detected (NOT DETECT); Parainfluenza Virus Type 4 Not Detected (NOT DETECT); Respiratory Syncytial Virus A Not Detected (NOT DETECT); Respiratory Syncytial Virus B Not Detected (NOT DETECT); SARS-COV-2 Not Detected (NOT DETECT)
[2021-07-09 20:27] LABS: Blood Urea Nitrogen 32 mg/dL (8-23); Calcium 7.9 mg/dL (8.5-10.5); Carbon Dioxide 24 mmol/L (22-29); Chloride 75 mmol/L (98-107); Glucose 78 mg/dL (65-115); Osmolality Calculated 248 mOsm/kg (285-295)
[2021-07-09 20:40] LABS: Sodium 116 mmol/L (136-145)
[2021-07-09] MEDS: enoxaparin 40 mg/0.4 mL Syringe SUBCUT (21:10)
[2021-07-09] MEDS: pantoprazole 40 mg SDV IVP (21:11)
--- NOTE | 2021-07-09 21:39 | PC.NURSE ---
Potassium rate decreased to 15 ml/hr. Pt states that she will not continue K+ infusion if I cannot decrease the discomfort. Line flushed and patent. Ice pack placed over IV site.
[2021-07-09 23:40] LABS: Blood Urea Nitrogen 35 mg/dL (8-23); Calcium 7.9 mg/dL (8.5-10.5); Carbon Dioxide 26 mmol/L (22-29); Chloride 78 mmol/L (98-107); Glucose 64 mg/dL (65-115); Osmolality Calculated 254 mOsm/kg (285-295)
[2021-07-10] VITALS (50 sets, daily range): BP systolic 96–133; BP diastolic 40–59; PULSE 63–94; RESP 9–24; TEMP 36.2–36.9; O2SAT 93–98
[2021-07-10 00:02] LABS: Anion Gap 18.1 (5-19); Potassium 3.1 mmol/L (3.5-5.1)
[2021-07-10 00:03] LABS: Sodium 119 mmol/L (136-145)
[2021-07-10 04:06] LABS: Basophils # 0.1 10^3/uL (0.0-0.1); Basophils % 0.5 %; Eosinophils # 0.2 10^3/uL (0.0-0.8); Eosinophils % 1.8 %; Hemoglobin 8.9 g/dL (11.5-15.3); Lymphocytes # 2.3 10^3/uL (0.8-4.8); Lymphocytes % 23.6 %; Mean Corpuscular HGB Conc 35.6 g/dL (30.0-36.0); Mean Corpuscular Hemoglobin 33.5 pg (28.0-34.0); Mean Platelet Volume 9.3 fL (7.4-10.4); Monocytes # 0.5 10^3/uL (0.2-0.9); Monocytes % 5.5 %; Neutrophils # 6.62 10^3/uL (1.8-7.7); Neutrophils % 68.3 %; Nucleated Red Blood Cells % 0 %; Platelet Count 460 10^3/cmm (130-400); Red Blood Count 2.66 10^6/uL (4.1-5.3); Red Cell Distribution Width 11.5 % (12.1-15.1); White Blood Count 9.7 10^3/uL (4.0-10.0)
[2021-07-10 04:29] LABS: Alanine Aminotransferase < 5 U/L (0-33); Albumin Level 3.7 g/dL (3.5-5.2); Alkaline Phosphatase 107 IU/L (35-105); Aspartate Amino Transferase 10 U/L (0-32); Blood Urea Nitrogen 34 mg/dL (8-23); Calcium 8.6 mg/dL (8.5-10.5); Carbon Dioxide 22 mmol/L (22-29); Globulin 2.2 g/dL (1.3-4.6); Glucose 47 mg/dL (65-115); Osmolality Calculated 261 mOsm/kg (285-295); Total Bilirubin 0.2 mg/dL (0.15-1.2); Total Protein 5.9 g/dL (6.6-8.7)
[2021-07-10 04:45] LABS: Anion Gap 23.3 (5-19); Chloride 80 mmol/L (98-107); Potassium 3.3 mmol/L (3.5-5.1); Sodium 122 mmol/L (136-145)
--- NOTE | 2021-07-10 05:02 | PC.NURSE ---
Pt's sushma pad changed, and this nurse observed that it was very dark. There also appeared to be dried blood on pt's labia. Pt denies observing any blood on her pads, or with bowel movements.
[2021-07-10 05:15] LABS: Add Urine Microscopic? YES; Bilirubin Urine Neg (Negative); Blood Urine Neg (Negative); Glucose Urine UA Norm (Normal); Ketones Urine 1+ (Negative); Leukocyte Esterase Urine 1+ (Negative); Nitrate Urine Negative (Negative); Protein Urine Neg (Negative); Urine Appearance SL Hazy (CLEAR); Urine Color Yellow (Yellow); Urobilinogen Urine Norm (Negative); pH Urine 5 (5-7)
[2021-07-10 05:16] LABS: Add Urine Culture? Yes; Bacteria Urine 4+ /hpf; RBC Urine 0-4 /hpf (0-2); Squamous Epithelial Cell Urine 0-4 /hpf (0-5); WBC Urine 15-25 /hpf (0-5)
[2021-07-10] MEDS: sodium chloride 0.9% 1,000 ML 30 ML IV (05:30)
--- NOTE | 2021-07-10 09:03 | PC.NURSE ---
awake up in bed eating ice chips at this time no nausea at present
--- NOTE | 2021-07-10 17:24 | PM.PN ---
Subjective Subjective: Interval history: She is doing little bit better today. She is up for trying some Jell-O this morning which is requested and tolerated. Later requesting additional clear liquids so far without recurrence of vomiting. Vitals/I&O/Wt Last Vital Signs Temp 98.4 F 07/10/21 03:35 Pulse 77 07/10/21 14:00 Resp 14 07/10/21 12:30 BP 113/55 07/10/21 12:30 Pulse Ox 97 07/10/21 10:30 07/10/21 07/10/21 07/10/21 06:59 14:59 22:59 Intake Total 237.917 / 898.333 50 / 50 Output Total 250 / 250 300 / 300 Balance -12.083 / 648.333 -250 / -250 Weight last 48 hrs Weight 39.599 kg Weight 39.825 kg Weight 40.37 kg Physical Exam Const: COMMON NORMALS: no acute distress and patient oriented x3 HENMT: COMMON NORMALS: oropharynx normal Neck/C-Spine: COMMON NORMALS: no JVD Resp: COMMON NORMALS: normal respiratory effort and clear to auscultation bilaterally AUSCULTATION: clear to auscultation bilaterally Cardio: COMMON NORMALS: no JVD, regular rhythm, S1 normal heart sound present, S2 normal heart sound present and No murmurs present (Cardio) RHYTHM: regular rhythm HEART SOUNDS: S1 normal heart sound present and S2 normal heart sound present GI: COMMON NORMALS: Normal to inspection, nondistended, normoactive bowel sounds present, Soft to palpation and non-tender PALPATION: Yes Soft to palpation Extremity: COMMON NORMALS: no joint enlargement and no pedal edema Neuro: COMMON NORMALS: patient oriented x3 and moves all extremities Skin: COMMON NORMALS: no rashes or lesions noted GENERAL SKIN EXAM: no rashes or lesions noted Data : 07/10/21 03:05 07/10/21 03:05 A&P Assessment and plan (1) Hyponatremia: Additional IVF held after sodium up to 122. Recheck level. She is feeling better, asking for oral intake trial with liquids. Normal TSH, adequate serum cortisol. Status: Acute (2) Hypokalemia: Received replacement. Potassium 3.3. Will give additional 20 mEq. Status: Acute (3) Syncope: So far without recurrence. Resume primidone. Continue telemetry monitoring. Hypokalemia replaced. Hyponatremia improving. Episodes of unresponsiveness without prodromal symptoms on day of presentation. No chest pain or pressure, no palpitations. No seizure-like activity. Recovers rather quickly. Monitor on telemetry due to possible arrhythmia with hypokalemia. Other consideration may be seizure activity possibly with withdrawal from primidone. Check orthostatics. Orthostatic precautions. TTE Status: Acute (4) CHRISTELLE (acute kidney injury): Improving CHRISTELLE on CKD. No obstruction on CT abdomen pelvis. Possible prerenal secondary to poor oral intake. Denies NSAID use. Received gentle fluid challenge. Monitor renal function, I&O. P.o. intake as tolerating. Status: Acute (5) Nausea and vomiting: Trial of clears. Pantoprazole IV. Zofran as needed. Naproxen listed as home medication. Denied NSAID use, but perhaps not realizing it is an NSAID. Would discontinue at discharge. Hold amitriptyline for now as can cause nausea. Hold dicyclomine which is known to cause nausea, ileus and other complications. Has never had an endoscopy. Will need evaluation at some point for possible gastritis, but is also a smoker currently to exclude malignancy and other abnormality. CT head without acute intracranial hemorrhage or edema. Mild atrophy and mild chronic microvascular ischemic disease. CT abdomen pelvis with moderate constipation with no obstructive pattern. Air within the urinary bladder, UA ordered and pending. Received dose of Rocephin in ER. Cholecystectomy, appendectomy. Status: Acute (6) UTI (urinary tract infection): Continue ceftriaxone. Follow-up urine culture. Status: Acute Additional A&P Information Abnormal troponin: Follow troponin EKG series. Monitor on telemetry. No symptoms of chest pain. Stress test August 2020 unremarkable. Other chronic medical problems noted Current smoker, 1 pack/day, encourage cessation nicotine patch as needed. COPD POTS CAD CKD Anemia Attestations Medical Necessity Statement*: Continue admission for assessment management of hyponatremia, intolerance of oral intake with recurrent nausea and vomiting, syncopal episodes. Coding Level of Care Code Acute Batch Operator for [facility] Fwd Exam Comprehensive Diagnoses Hyponatremia E87.1 Hypokalemia E87.6 Syncope R55 CHRISTELLE (acute kidney injury) N17.9 Nausea and vomiting R11.2 UTI (urinary tract infection) N39.0
[2021-07-10] MEDS: pantoprazole 40 mg SDV IVP (17:54)
[2021-07-10] MEDS: cefTRIAXone 1,000 MG in sodium chloride 0.9% (plus) 50 ML 100 MG IV (17:54)
[2021-07-10] MEDS: guaiFENesin-dextromethorphan UDC 10 mL 5 ML PO (17:55)
[2021-07-10 18:09] LABS: Blood Urea Nitrogen 37 mg/dL (8-23); Calcium 7.9 mg/dL (8.5-10.5); Carbon Dioxide 25 mmol/L (22-29); Chloride 81 mmol/L (98-107); Glucose 107 mg/dL (65-115); Osmolality Calculated 261 mOsm/kg (285-295); Sodium 121 mmol/L (136-145)
[2021-07-10 18:17] LABS: Anion Gap 18.2 (5-19); Potassium 3.2 mmol/L (3.5-5.1)
--- NOTE | 2021-07-10 19:16 | NUR.SHIFT ---
Shift Note Frequent safety and comfort rounds continue. Orders and/or nursing care completed as indicated. Patient monitored for response to intervention and treatment(s). Education provided includes[]. Patient and/or denial management representative [ResponseToTeaching]. Will continue to monitor. jaja steele Dr notified of event
[2021-07-10 19:50] LABS: Hemoglobin 7.9 g/dL (11.5-15.3)
[2021-07-10 23:35] LABS: Hemoglobin 7.9 g/dL (11.5-15.3)
[2021-07-11] VITALS (32 sets, daily range): BP systolic 88–151; BP diastolic 45–70; PULSE 62–90; RESP 0–19; TEMP 36.4–36.6; O2SAT 94–97
[2021-07-11 05:26] LABS: Basophils % 0.5 %; Eosinophils # 0.2 10^3/uL (0.0-0.8); Eosinophils % 2.6 %; Hematocrit 23.1 % (37.0-47.0); Hemoglobin 8.3 g/dL (11.5-15.3); Lymphocytes # 1.7 10^3/uL (0.8-4.8); Lymphocytes % 20.4 %; Mean Corpuscular HGB Conc 35.9 g/dL (30.0-36.0); Mean Corpuscular Volume 94.7 fl (81-99); Mean Platelet Volume 9.1 fL (7.4-10.4); Monocytes # 0.5 10^3/uL (0.2-0.9); Monocytes % 5.7 %; Neutrophils # 5.73 10^3/uL (1.8-7.7); Neutrophils % 70.4 %; Nucleated Red Blood Cells % 0 %; Platelet Count 424 10^3/cmm (130-400); Red Blood Count 2.44 10^6/uL (4.1-5.3); Red Cell Distribution Width 11.3 % (12.1-15.1); White Blood Count 8.1 10^3/uL (4.0-10.0)
[2021-07-11] MEDS: pantoprazole 40 mg SDV IVP ×2 (05:35→17:51)
[2021-07-11 05:45] LABS: Alanine Aminotransferase < 5 U/L (0-33); Albumin Level 3.5 g/dL (3.5-5.2); Alkaline Phosphatase 99 IU/L (35-105); Anion Gap 17.6 (5-19); Aspartate Amino Transferase 10 U/L (0-32); Blood Urea Nitrogen 30 mg/dL (8-23); Calcium 8.7 mg/dL (8.5-10.5); Carbon Dioxide 24 mmol/L (22-29); Chloride 85 mmol/L (98-107); Globulin 2.1 g/dL (1.3-4.6); Glucose 80 mg/dL (65-115); Osmolality Calculated 263 mOsm/kg (285-295); Sodium 124 mmol/L (136-145); Total Bilirubin 0.2 mg/dL (0.15-1.2); Total Protein 5.6 g/dL (6.6-8.7)
[2021-07-11 06:13] LABS: Potassium 2.6 mmol/L (3.5-5.1)
--- NOTE | 2021-07-11 06:37 | PC.NURSE ---
Critical lab results received, potassium 2.6. Notified, Dr. Ruiz, Hospitalist. Orders received, see AUG.
--- NOTE | 2021-07-11 06:56 | USCV_ITS ---
Maribel Maile Age: 75 Gender: F : 1945 Exam Date: 07/11/2021 10:05 Ordering Phys: Reji Wallace MD Technologist: Tara Johnson [place]am Location[place] [facility] [place] Indication: Syncope BP: 115 / 69 HR: 67 Rhythm: Sinus Technical Quality: Suboptimal MEASUREMENTS (Male / Female) Normal Values 2D ECHO LV Diastolic Diameter PLAX 2.9 cm 4.2 - 5.9 / 3.9 - 5.3 cm LV Systolic Diameter PLAX 1.7 cm IVS Diastolic Thickness 1.5 cm 0.6 - 1.0 / 0.6 - 0.9 cm IVS Systolic Thickness 2.0 cm LVPW Diastolic Thickness 0.8 cm 0.6 - 1.0 / 0.6 - 0.9 cm LVPW Systolic Thickness 0.9 cm RV Chamber Size 2.4 cm LVOT Diameter 1.7 cm LV Ejection Fraction 2D Teich 73.8 % LV Ejection Fraction MOD 2C 74.6 % LV Ejection Fraction 2C AL 75.9 % LA Diameter 2.7 cm LA Width 2.6 cm LA Height 3.5 cm RA Width 2.7 cm RA Height 3.9 cm Aorta at Sinotubular Diameter 1.9 cm M-MODE Aortic Annulus Diameter 2.8 cm LA Ao Ratio MM 1.1 MV E Point Septal Separation 0.3 cm DOPPLER AV Peak Velocity 100.0 cm/s LVOT Peak Velocity 63.0 cm/s AV Area Cont Eq vti 1.3 cm squared AV Area Cont Eq pk 1.4 cm squared MV Area PHT 3.7 cm squared Mitral E to A Ratio 0.8 MV E' Velocity 37.5 cm/s Mitral E to MV E' Ratio 8.5 Mitral E to LV E' Lateral Ratio 8.6 Mitral E to LV E' Septal Ratio 8.5 TR Peak Velocity 251.9 cm/s TR Peak Gradient 25.4 mmHg TR Mean Velocity 211.4 cm/s TR Mean Gradient 19.1 mmHg TR Velocity Time Integral 85.4 cm TV Peak E Velocity 50.0 cm/s Right Atrial Pressure 15.0 mmHg Pulmonary Artery Systolic Pressu 40.4 mmHg RV Acceleration Time 0.1 s RV Ejection Time 0.3 s RV AcT/ET 0.3 FINDINGS Left Ventricle Normal left ventricular size and systolic function, EF 74 %. No regional wall motion abnormalities. Grade I/IV diastolic dysfunction (abnormal relaxation filling pattern), normal to mildly elevated filling pressures. Right Ventricle The right ventricle is normal in size and function. Right Atrium The right atrium is normal in size. Left Atrium The left atrium is normal in size. Mitral Valve Thickened mitral valve. Aortic Valve Thickened aortic valve. Tricuspid Valve Mild tricuspid valve regurgitation. Pulmonic Valve Pulmonic valve not well visualized. Pericardium Normal pericardium without effusion. Aorta Normal ascending aorta dimension. CONCLUSIONS Normal left ventricular size and systolic function, EF 74 %. No regional wall motion abnormalities. Grade I/IV diastolic dysfunction (abnormal relaxation filling pattern), normal to mildly elevated filling pressures. Thickened aortic and mitral valves. Mild tricuspid valve regurgitation. Estimated pulmonary artery peak systolic pressure of 40 mmHg Compared to the study from 03/10/2021, there may not be a significant change Dr Adria Mcdonald MD [facility] (Electronically Signed) Final Date: 11 July 2021 17:33 S
[2021-07-11] MEDS: potassium chloride ER 20 mEq Tablet PO (07:45)
[2021-07-11] MEDS: amitriptyline 25 mg Tablet PO ×2 (07:45→21:25)
[2021-07-11] MEDS: potassium chloride premix 100 ML 25 MEQ (07:51)
--- NOTE | 2021-07-11 07:52 | PC.NURSE ---
bryce herrera by night coordinator not scanned documented now
[2021-07-11] MEDS: digoxin 125 mcg Tablet PO (08:49)
[2021-07-11] MEDS: primidone 50 mg Tablet PO ×2 (08:49→17:51)
[2021-07-11 12:46] LABS: Blood Urea Nitrogen 24 mg/dL (8-23); Calcium 8.7 mg/dL (8.5-10.5); Carbon Dioxide 23 mmol/L (22-29); Chloride 88 mmol/L (98-107); Glucose 94 mg/dL (65-115); Osmolality Calculated 262 mOsm/kg (285-295); Sodium 124 mmol/L (136-145)
[2021-07-11 12:51] LABS: Anion Gap 16.7 (5-19); Potassium 3.7 mmol/L (3.5-5.1)
--- NOTE | 2021-07-11 16:06 | P.PN_ITS ---
Subjective Subjective: Interval history: Tolerated clear liquid diet so far. She is ready to advance to full liquids. Denies abdominal pain. So far no further vomiting. Discussed with her finding of large melanotic bowel movement yesterday. She denies being aware of recent blood in stool or melena. Does not remember taking an NSAID per se, but says takes a pain pill , unable to name it. Vitals/I&O/Wt Last Vital Signs Temp 98 F 07/11/21 12:00 Pulse 72 07/11/21 14:00 Resp 16 07/11/21 12:00 BP 118/57 07/11/21 12:00 Pulse Ox 97 07/10/21 10:30 07/11/21 07/11/21 07/11/21 06:59 14:59 22:59 Intake Total 300 / 850 650 / 650 Output Total 775 / 1725 825 / 825 450 / 1275 Balance -475 / -875 -175 / -175 -450 / -625 Weight last 48 hrs Weight 42.864 kg Weight 39.599 kg Weight 39.825 kg Physical Exam Const: COMMON NORMALS: no acute distress and patient oriented x3 HENMT: COMMON NORMALS: oropharynx normal Neck/C-Spine: COMMON NORMALS: no JVD Resp: COMMON NORMALS: normal respiratory effort and clear to auscultation bilaterally AUSCULTATION: clear to auscultation bilaterally Cardio: COMMON NORMALS: no JVD, regular rhythm, S1 normal heart sound present, S2 normal heart sound present and No murmurs present (Cardio) RHYTHM: regular rhythm HEART SOUNDS: S1 normal heart sound present and S2 normal heart sound present GI: COMMON NORMALS: Normal to inspection, nondistended, normoactive bowel sounds present, Soft to palpation and non-tender PALPATION: Yes Soft to palpation Extremity: COMMON NORMALS: no joint enlargement and no pedal edema Neuro: COMMON NORMALS: patient oriented x3 and moves all extremities Skin: COMMON NORMALS: no rashes or lesions noted GENERAL SKIN EXAM: no rashes or lesions noted Data : 07/11/21 03:59 07/11/21 12:10 Micro: Microbiology 07/10/21 05:00 Urine Culture - Preliminary Urine,Clean Catch Gram Negative Rods A&P Assessment and plan (1) Hyponatremia: Gradually improving. Sodium this morning up to 124. Unchanged at l unchtime, so we'll restart again gentle NS hydration. Follow sodium levels. She is also feeling ready to advance diet to full liquid as so far has not had any further vomiting. Normal TSH, adequate serum cortisol. In ICU as overflow. Status: Acute (2) Melena: Large melanotic bowel movement reported evening of 07/10. Clopidogrel held. Stopped Lovenox. Increase PPI to twice daily. Acute on chronic anemia with hemoglobin decreased to 7.9 from 10.8 on admission. Some likely also hemodilution with IV hydration. Appears may be NSAID induced gastritis that she has naproxen listed as one of the home medications. She reports taking a pain pill , but does not remember which one. Discontinue NSAIDs at discharge. Reports never had upper or lower endoscopy. Would benefit from either outpatient referral or inpatient in case of persistent hemoglobin decreased. Follow-up hemoglobin. Status: Acute (3) Hypokalemia: Given additional replacement for again severe hyperkalemia this morning. Better on recheck. Check magnesium. Status: Acute (4) Syncope: So far without recurrence. Resumed primidone. Continue telemetry monitoring. Hypokalemia replacement. Hyponatremia improving. Follow hemoglobin with possible GI bleed. Episodes of unresponsiveness without prodromal symptoms on day of presentation. No chest pain or pressure, no palpitations. No seizure-like activity. Recovers rather quickly. Monitor on telemetry due to possible arrhythmia with hypokalemia. Other consideration may be seizure activity possibly with withdrawal from primid one. Check orthostatics. Orthostatic precautions. TTE taken Status: Acute (5) CHRISTELLE (acute kidney injury): Improving CHRISTELLE on CKD. No obstruction on CT abdomen pelvis. Possible prerenal secondary to poor oral intake. Denies NSAID use but NSAIDs listed on home medication list. Discussed with her to avoid NSAIDs, please reinforce at time of discharge. Discontinue Peroxin. Received gentle fluid challenge. Monitor renal function, I&O. P.o. intake as tolerating. Status: Acute (6) Nausea and vomiting: So far did well with clear liquids. Advance to full liquids first given degree and persistence of nausea and vomiting. Continue pantoprazole IV. Zofran as needed. Naproxen listed as home medication. Denied NSAID use, but perhaps not realizing it is an NSAID. Would discontinue at discharge. Hold amitriptyline for now as can cause nausea. Hold dicyclomine which is known to cause nausea, ileus and other complications. CT head without acute intracranial hemorrhage or edema. Mild atrophy and mild chronic microvascular ischemic disease. CT abdomen pelvis with moderate constipation with no obstructive pattern. Air within the urinary bladder, UA ordered and pending. Received dose of Rocephin in ER. Cholecystectomy, appendectomy. Status: Acute (7) UTI (urinary tract infection): Continue ceftriaxone. More than 100,000 gram-negative rods in urine. Follow-up urine culture. Status: Acute Additional A&P Information Abnormal troponin: No chest pain. Troponin series without suggestion of acute NH. Follow troponin EKG series. Monitor on telemetry. No symptoms of chest pain. Stress test August 2020 unremarkable. Other chronic medical problems noted Current smoker, 1 pack/day, encourage cessation nicotine patch as needed. COPD POTS CAD CKD Anemia Attestations Medical Necessity Statement*: Continue admission for assessment of management of hyponatremia, melanotic stool with acute anemia, advancement of diet with recurrent nausea and vomiting, CHRISTELLE, episodes of syncope. Coding Level of Care Code Acute Tobacco Conditioner for Chg Fwd Diagnoses Hyponatremia E87.1 Melena K92.1 Hypokalemia E87.6 Syncope R55 CHRISTELLE (acute kidney injury) N17.9 Nausea and vomiting R11.2 UTI (urinary tract infection) N39.0
--- NOTE | 2021-07-11 16:32 | NUR.SHIFT ---
Shift Note Frequent safety and comfort rounds continue. Orders and/or nursing care completed as indicated. Patient monitored for response to intervention and treatment(s). Education provided includes pn possible colonoscopy understands and will discuss this with family and decide no further bms noted today up to bedside commode with assist no c/o of dizzyiness or syncopy. Will continue to monitor.
[2021-07-11 17:07] LABS: Hemoglobin 8.1 g/dL (11.5-15.3)
[2021-07-11 17:29] LABS: Anion Gap 14.1 (5-19); Blood Urea Nitrogen 21 mg/dL (8-23); Calcium 7.8 mg/dL (8.5-10.5); Carbon Dioxide 26 mmol/L (22-29); Chloride 88 mmol/L (98-107); Glucose 80 mg/dL (65-115); Osmolality Calculated 262 mOsm/kg (285-295); Potassium 3.1 mmol/L (3.5-5.1); Sodium 125 mmol/L (136-145)
[2021-07-11] MEDS: cefTRIAXone 1,000 MG in sodium chloride 0.9% (plus) 50 ML 100 MG IV (17:51)
[2021-07-11 21:07] LABS: Hemoglobin 7.9 g/dL (11.5-15.3)
[2021-07-11 21:24] LABS: Anion Gap 14.5 (5-19); Blood Urea Nitrogen 19 mg/dL (8-23); Calcium 7.8 mg/dL (8.5-10.5); Carbon Dioxide 24 mmol/L (22-29); Chloride 91 mmol/L (98-107); Glucose 157 mg/dL (65-115); Osmolality Calculated 270 mOsm/kg (285-295); Sodium 127 mmol/L (136-145)
[2021-07-11 21:27] LABS: Potassium 2.5 mmol/L (3.5-5.1)
[2021-07-11] MEDS: lidocaine 1% 5 ML in potassium chloride premix 100 ML 25 ML IV (23:06)
[2021-07-12] VITALS (31 sets, daily range): BP systolic 106–132; BP diastolic 46–94; PULSE 63–82; RESP 0–21; TEMP 36.2–37.1; O2SAT 93–100
[2021-07-12] MEDS: sodium chloride 0.9% 1,000 ML 30 ML IV ×2 (00:11→10:16)
[2021-07-12 03:50] LABS: Basophils # 0.1 10^3/uL (0.0-0.1); Basophils % 0.9 %; Eosinophils # 0.3 10^3/uL (0.0-0.8); Eosinophils % 4.7 %; Hematocrit 23.5 % (37.0-47.0); Hemoglobin 8.1 g/dL (11.5-15.3); Lymphocytes # 1.8 10^3/uL (0.8-4.8); Lymphocytes % 27.9 %; Mean Corpuscular HGB Conc 34.5 g/dL (30.0-36.0); Mean Corpuscular Hemoglobin 33.6 pg (28.0-34.0); Mean Corpuscular Volume 97.5 fl (81-99); Mean Platelet Volume 8.9 fL (7.4-10.4); Monocytes # 0.5 10^3/uL (0.2-0.9); Monocytes % 7.1 %; Neutrophils # 3.91 10^3/uL (1.8-7.7); Neutrophils % 59.2 %; Nucleated Red Blood Cells % 0 %; Platelet Count 411 10^3/cmm (130-400); Red Blood Count 2.41 10^6/uL (4.1-5.3); Red Cell Distribution Width 11.4 % (12.1-15.1); White Blood Count 6.6 10^3/uL (4.0-10.0)
[2021-07-12 04:04] LABS: Alanine Aminotransferase < 5 U/L (0-33); Albumin Level 3.4 g/dL (3.5-5.2); Alkaline Phosphatase 94 IU/L (35-105); Anion Gap 16.4 (5-19); Aspartate Amino Transferase 12 U/L (0-32); Blood Urea Nitrogen 17 mg/dL (8-23); Calcium 8.5 mg/dL (8.5-10.5); Carbon Dioxide 23 mmol/L (22-29); Chloride 93 mmol/L (98-107); Globulin 2.2 g/dL (1.3-4.6); Glucose 75 mg/dL (65-115); Osmolality Calculated 268 mOsm/kg (285-295); Potassium 3.4 mmol/L (3.5-5.1); Sodium 129 mmol/L (136-145); Total Bilirubin 0.2 mg/dL (0.15-1.2); Total Protein 5.6 g/dL (6.6-8.7)
[2021-07-12] MEDS: pantoprazole 40 mg SDV IVP (05:30)
--- NOTE | 2021-07-12 05:58 | PC.NURSE ---
SHIft SUmmary: Overall uneventful shift. Patient rested in bed throughout most of shift. Was occaisonally up to bedside commode. Potassium was replaced overnight.
--- NOTE | 2021-07-12 09:24 | PC.CHAP ---
Pastoral Care Encounter/Spiritual Assessment Type of Contact [] Declined product support engineer visit [] Patient/Family/Request visit [] Outpatient visit [] Follow-up visit [] Physician referral [] Code/Alert [x] Routine visit [] Staff referral [] Actively dying [] Patient sleeping [] Family support [] [] Out of room [] Palliative care [] [] Receiving care in room [] Pre-surgical visit [] Trauma [] Long length of stay [x] ICU visit [] Other: Relational/Emotional Strength [] Patient feels connected with others/family/visitors/staff [] Distress [] Loneliness/isolation [] Abandonment Spirituality of Patient [] Person of Lizeth [] Attends Caodaism of their Lizeth [] Believes in Prayer [] Reads Bible or Episcopalian materials [] There are Spiritual issues to be addressed 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 Interventions [x] Prayer [x] Active listening [x] Non-anxious presence [x] Spiritual/emotional support [] Crisis/trauma care [] Spiritual counseling [] Bereavement support [] Provided bereavement packet [] Provided Bible/devotional materials [] Provided toy/stuffed animal, coloring book to patient or family member [] Provided Communion [] Anointing/Weikert [] Salvation [x] Completed spiritual assessment [] Other: Impact on Illness or Injury [] Angry [] Fearful [] Anxious [] Often cries [] Exhaustion [] Unable to work [] Unable to attend islam [] Unable to walk/stand [] Unable to read [] Unable to drive [] Unable to eat/drink [] Unable to sleep [] Unable to be with family [] Patient intubated [] Other: Summary waiting on breakfast... resting well Time spent with patient 5 min
[2021-07-12] MEDS: digoxin 125 mcg Tablet PO (09:35)
[2021-07-12] MEDS: primidone 50 mg Tablet PO ×2 (09:36→17:28)
--- NOTE | 2021-07-12 10:42 | PC.NURSE ---
nurse note 22g iv inserted, first attempt, patient tolerated well.
--- NOTE | 2021-07-12 15:10 | PM.PN ---
Subjective Subjective: Interval history: No new complaints today. Patient states feeling better. Would like to know when she can return home. Urine culture with gram-negative rods, was started on ceftriaxone on , awaiting final identification of isolate. Medications: Reviewed: Yes Vitals/I&O/Wt Last Vital Signs Temp 97.8 F 07/12/21 07:30 Pulse 78 07/12/21 14:25 Resp 15 07/12/21 12:00 BP 126/62 07/12/21 12:00 Pulse Ox 99 07/12/21 12:00 07/12/21 07/12/21 07/12/21 06:59 14:59 22:59 Intake Total 450 / 2350 782.5 / 782.5 Output Total 300 / 2550 300 / 300 Balance 150 / -200 482.5 / 482.5 Weight last 48 hrs Weight 43.5 kg Weight 42.864 kg Physical Exam Narrative: EXAM NARRATIVE: GEN: Awake, alert and oriented, no acute distress CVS: S1S2 N RS: CTA B/L Abd: Soft, nt/nd , bs+ EPIC PROFESSIONAL: no focal neuro deficits Extremities: No edema clubbing or cyanosis Data : 07/12/21 02:33 07/12/21 02:33 A&P Assessment and plan (1) Hyponatremia: Gradually improving. Sodium this morning up to 129. Currently tolerating p.o. intake. No episodes of nausea or vomiting currently. Discontinue IV fluids. Start p.o. salt tabs this evening. Recheck sodium with a.m. labs. Normal TSH, adequate serum cortisol. CT head without any acute intracranial abnormalities. Chest x-ray without any consolidation. Covid pcr negative 07/09 Status: Acute (2) Melena: Large melanotic bowel movement reported evening of 07/10. Clopidogrel held. Stopped Lovenox. Increased PPI to twice daily. Add Carafate today Acute on chronic anemia with hemoglobin decreased to 7.9 from 10.8 on admission.Now stable at 8.1. No further marjorie noted. CT abdomen with moderate constipation with no obstructive pattern. Incidentally noted air within the bladder thought to be related to Pacheco versus enterovesical fistula which will need outpatient evaluation. Appears may be NSAID induced gastritis that she has naproxen listed as one of the home medications. She reports taking a pain pill , but does not remember which one. Discontinue NSAIDs at discharge. Reports never had upper or lower endoscopy. Would benefit from either outpatient referral or inpatient in case of persistent hemoglobin decreased. Status: Acute (3) Hypokalemia: resolved Status: Acute (4) Syncope: So far without recurrence. Resumed primidone. Continue telemetry monitoring. No events thus far. Ct head without acute events TTE Normal left ventricular size and systolic function, EF 74 %. No regional wall motion abnormalities. Grade I/IV diastolic dysfunction check carotid duplex Status: Acute (5) CHRISTELLE (acute kidney injury): Improving CHRISTELLE on CKD. No obstruction on CT abdomen pelvis. Possible prerenal secondary to poor oral intake vs NSAIDs Status: Acute (6) Nausea and vomiting: So far did well with clear liquids. Advance diet as tolerated Status: Acute (7) UTI (urinary tract infection): Continue ceftriaxone. More than 100,000 gram-negative rods in urine. Follow-up urine culture. Status: Acute Additional A&P Information Abnormal troponin: No chest pain. Troponin series without suggestion of acute SD. Follow troponin EKG series. Monitor on telemetry. No symptoms of chest pain. Stress test August 2020 unremarkable. Other chronic medical problems noted Current smoker, 1 pack/day, encourage cessation nicotine patch as needed. COPD POTS CAD CKD Anemia Attestations Medical Necessity Statement*: sodium monitoring with discontinuing IVF, starting po salt tabs, adding carafeate, change protonix to po and monitor for any further GI bleed or hb drop Coding Level of Care Code Acute Microscopist for Chg Fwd Diagnoses Hyponatremia E87.1 Melena K92.1 Hypokalemia E87.6 Syncope R55 CHRISTELLE (acute kidney injury) N17.9 Nausea and vomiting R11.2 UTI (urinary tract infection) N39.0
--- NOTE | 2021-07-12 17:07 | PC.NURSE ---
1457 Patient transferred to C[facility] Room 108. Patient resting comfortably in bed with CSU nurse in room. Patient chart and medications left at nurses desk with staff.
[2021-07-12] MEDS: pantoprazole DR 40 mg Tablet PO (17:27)
[2021-07-12] MEDS: sucralfate 1 gm Tablet PO (17:27)
[2021-07-12] MEDS: sodium chloride 1 gm Tablet PO (17:27)
[2021-07-12] MEDS: cefTRIAXone 1,000 MG in sodium chloride 0.9% (plus) 50 ML 100 MG IV (17:27)
--- NOTE | 2021-07-12 17:30 | PC.NURSE ---
Patient arrived from ICU via wheelchair. Patient has been oriented to room and use of call blackburn/safety precautions. VS are stable. Patient has no questions or concerns. Nurse will continue to monitor.
--- NOTE | 2021-07-12 17:33 | PC.SOCIAL ---
IMM UPDATED IMM dated and initialed and copy given to pt.
[2021-07-12 20:58] LABS: Glucose Point of Care 138 mg/dL (70-110)
[2021-07-12] MEDS: amitriptyline 25 mg Tablet PO (21:28)
[2021-07-13] VITALS: BP 125/61; PULSE 66; RESP 16; O2SAT 96
[2021-07-13 02:56] LABS: Basophils % 0.6 %; Eosinophils # 0.4 10^3/uL (0.0-0.8); Eosinophils % 6.5 %; Hematocrit 22.7 % (37.0-47.0); Hemoglobin 7.9 g/dL (11.5-15.3); Lymphocytes # 2.1 10^3/uL (0.8-4.8); Lymphocytes % 31.2 %; Mean Corpuscular HGB Conc 34.8 g/dL (30.0-36.0); Mean Corpuscular Hemoglobin 33.6 pg (28.0-34.0); Mean Corpuscular Volume 96.6 fl (81-99); Mean Platelet Volume 8.6 fL (7.4-10.4); Monocytes # 0.4 10^3/uL (0.2-0.9); Monocytes % 6.2 %; Neutrophils # 3.67 10^3/uL (1.8-7.7); Neutrophils % 55.3 %; Nucleated Red Blood Cells % 0 %; Platelet Count 384 10^3/cmm (130-400); Red Blood Count 2.35 10^6/uL (4.1-5.3); Red Cell Distribution Width 11.7 % (12.1-15.1); White Blood Count 6.6 10^3/uL (4.0-10.0)
[2021-07-13 05:14] LABS: Alanine Aminotransferase < 5 U/L (0-33); Albumin Level 3.2 g/dL (3.5-5.2); Alkaline Phosphatase 85 IU/L (35-105); Anion Gap 17.3 (5-19); Aspartate Amino Transferase 10 U/L (0-32); Blood Urea Nitrogen 10 mg/dL (8-23); Calcium 8.5 mg/dL (8.5-10.5); Carbon Dioxide 21 mmol/L (22-29); Chloride 98 mmol/L (98-107); Glucose 79 mg/dL (65-115); Magnesium 1.7 mg/dL (1.7-2.3); Osmolality Calculated 274 mOsm/kg (285-295); Potassium 3.3 mmol/L (3.5-5.1); Sodium 133 mmol/L (136-145); Total Bilirubin 0.2 mg/dL (0.15-1.2); Total Protein 5.2 g/dL (6.6-8.7)
[2021-07-13 05:42] VITALS: PULSE 68
[2021-07-13] MEDS: sucralfate 1 gm Tablet PO ×2 (06:55→11:50)
[2021-07-13 08:00] VITALS: BP 139/65; PULSE 72; RESP 16; O2SAT 99
--- NOTE | 2021-07-13 08:20 | P.DS_ITS ---
Discharge Providers Date of Admission: 07/09/21 13:56 Date of Discharge: July 13, 2021 Attending Provider at Admission: Reji Wallace Attending Provider at Discharge: Paulina See MD Primary Care Provider: Laith Patel Diagnoses at Discharge Discharge Diagnosis (1) Hyponatremia: Status: Acute (2) Melena: Status: Acute (3) Hypokalemia: Status: Acute (4) Syncope: Status: Acute (5) CHRISTELLE (acute kidney injury): Status: Acute (6) Nausea and vomiting: Status: Acute (7) UTI (urinary tract infection): Status: Acute Reason for Visit Reason for Visit: not responding as needed Hospital Course Hospital Course 75-year-old lady presented with recurrent nausea and vomiting of any food or drink that she would take, unable to take any food or medication, with severe hyponatremia of 113 which has been improving with hydration, now at 133 on discharge, severe hypokalemia which has been adequately replaced. Medications with potential contributions were held, including triamterene-HCTZ,naproxen. She may additionally have NSAID induced gastritis. On day of admission, she also had 2 syncopal/unresponsive episodes in the ER, unclear if arrhythmia due to severe hypokalemia,?orthostasis due to hypovolemia or other cause could have contributed. Cardizem and metoprolol were held during admission due to HR being maintained in the 60s off of these medications. Per previous cardiology documentation, patient suspected to have POTS. CT head was without acute events. TTE showed Normal left ventricular size and systolic function, EF 74 %. No ?regional wall motion abnormalities. Grade I/IV diastolic?dysfunction.normal to ?mildly elevated filling pressures. No significant drying rack changer 02/2021. She has previously completed Holter monitoring in mar 2021. Low dose metoprolol is being resumed at discharge with recommendation to follow up with cardiology within the next one week. Other hospital events included one melanotic bowel movement on 07/10, some noted acute on chronic anemia hemoglobin decreased to 8.1 from 10.8, however previous baseline between 7.1-10.3 . No recurrence since then. No hematemesis. Possibly may have NSAID induced gastritis. Started on PPI. Since hemoglobin remained steady over next few days, referral provided for outpatient endoscopy. She was able to tolerate po intake at the time of discharge. A previous UGIE from 02/2021 had shown hiatal hernia and gastritis. Also found to have E.coli UTI for which she received iv Ceftriaxone 07/10-07/13. Discharged with one remaining day of nitrofurantoin. Ct abdomen without acute abnormalities, however note made of gas in urinary bladder which may be related to ernandez vs fistulization- recommend outpatient follow up with serial imaging with PCP. Plavix is being held at discharge due to GI bleed, recheck Hb at next cardiology visit in 5-7 days, It appears patient has non obstructive CAD (last LHC in 01/2021) and is on Plavix for a prior h/o stroke. 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 echo complete * [id number] Routine Ultrasound 07/11/21 06:[address]/CT abdomen pelvis wo con [id number] IMPRESSION: ? 1.? Moderate constipation with no obstructive pattern. 2.? Air within the urinary bladder. May be from recent urinary bladder catheterization. If no recent catheterization consider infection by gas producing organisms or enterovesical fistula. 3.? Prior cholecystectomy and appendectomy. 4.? Further evaluation of the visceral organs limited without IV contrast. Pending at discharge Category Date Time Status CV carotid duplex BI* [id number] Routine Ultrasound 07/13/21 15:22 Ordered Labs from last 24 hours 07/13/21 07/13/21 07/12/21 02:32 02:32 20:41 WBC 6.6 RBC 2.35 L Hgb 7.9 L Hct 22.7 L MCV 96.6 MCH 33.6 MCHC 34.8 RDW 11.7 L Plt Count 384 MPV 8.6 Neut % (Auto) 55.3 Lymph % (Auto) 31.2 [place] % (Auto) 6.2 Eos % (Auto) 6.5 Baso % (Auto) 0.6 Neut # (Auto) 3.67 Lymph # (Auto) 2.1 [place] # (Auto) 0.4 Eos # (Auto) 0.4 Baso # (Auto) 0.0 Nucleated RBC % (a uto) 0 Nucleated RBCs # 0.0 Sodium 133 L Potassium 3.3 L Chloride 98 Carbon Dioxide 21 L Anion Gap 17.3 BUN 10 Creatinine 1.0 H GFR Calculation Not Reportable Glucose 79 POC Glucose 138 H Calculated Osmolal ity 274 L Calcium 8.5 Magnesium 1.7 Total Bilirubin 0.2 AST 10 ALT < 5 Alkaline Phosphata se 85 Total Protein 5.2 L Albumin 3.2 L Globulin 2.0 Vitals: Last Vital Signs Temp 98.1 F 07/12/21 20:00 Pulse 68 07/13/21 05:42 Resp 16 07/13/21 00:00 BP 125/61 07/13/21 00:00 Pulse Ox 96 07/13/21 00:00 Discharge Plan Discharge Patient Disposition: Home Condition: Stable Prescriptions: New sucralfate 1 gram Tablet 1 g PO AC&BEDTIME 30 Days Qty: 60 0RF pantoprazole 40 mg Tablet,Delayed Release (Dr/Ec) 40 mg PO BID 30 Days Qty: 60 0RF nitrofurantoin monohyd/m-cryst [Macrobid] 100 mg capsule 100 mg PO BID 3 Days Qty: 6 0RF Rx Instructions: must administer with a meal/food Continued simvastatin 20 mg tablet 20 mg PO DAILY 0RF primidone 50 mg tablet 50 mg PO BID 0RF amitriptyline 25 mg tablet 25 mg PO BEDTIME 0RF nitroglycerin 0.4 mg tablet, sublingual 0.4 mg sublingual PRN PRN (Reason: Chest Pain) 0RF docusate sodium [Colace] 100 mg capsule 100 mg PO BID Qty: 30 0RF FeroSul 325 mg (65 mg iron) tablet 325 mg PO BID 0RF digoxin 125 mcg (0.125 mg) tablet 125 mcg PO DAILY 0RF metoprolol succinate 25 mg tablet extended release 24 hr 12.5 mg PO DAILY 0RF Held clopidogrel 75 mg tablet 75 mg PO DAILY 0RF Hold Instructions: Resume on 03/23/21. furosemide 20 mg tablet 20 mg PO BID 0RF Hold Instructions: Resume on 07/20/21. hold until follow up with cardiology diltiazem HCl 60 mg capsule,extended release 12 hr 60 mg PO BID 0RF Hold Instructions: Resume on 07/20/21. hold until follow up with cardiology isosorbide dinitrate 5 mg tablet 5 mg PO BID 0RF Hold Instructions: Resume on 07/20/21. hold until follow up with cardiology Discontinued tizanidine 4 mg tablet 4 mg PO Q8H PRN (Reason: Spasms) 0RF triamterene-hydrochlorothiazid 37.5-25 mg tablet 1 tab PO DAILY 0RF Hold Instructions: Resume on 04/04/21. Dexilant 60 mg capsule,biphase delayed releas 60 mg PO DAILY 0RF omeprazole 40 mg Capsule,Delayed Release(Dr/Ec) 40 mg PO DAILY 0RF naproxen 500 mg tablet 500 mg PO BID PRN (Reason: Pain) 0RF dicyclomine 20 mg tablet 20 mg PO Q6H PRN (Reason: Abdominal Discomfort) 0RF Discharge Orders: Discharge Order (Routine); Ordered 07/13/21 Ordered By: Paulina See Referrals: Laith Patel DO [Primary Care Provider] - 4-7 days Rae Ruff FNP [Nurse Practitioner] - 4-7 days Elie Kern MD [Physician] - 7-10 days (assess for endoscopy, FOBT+, chronic anemia, previously with gastritis, on Plavix ) Discharge Diet: Advance as tolerated Discharge Activity: Resume usual activity and Increase activity as tolerated Patient Instructions: Opioid Safety Discharge Attestations Time Spent in Discharge Care*: greater than 30 min Quality Metrics Clinical Quality Measures [ No reported AMI, CVA or VTE this stay] Coding Level of Care Code Acute Chg FW DC note Diagnoses Hyponatremia E87.1 Melena K92.1 Hypokalemia E87.6 Syncope R55 CHRISTELLE (acute kidney injury) N17.9 Nausea and vomiting R11.2 UTI (urinary tract infection) N39.0
[2021-07-13 09:32] VITALS: PULSE 78
[2021-07-13] MEDS: sodium chloride 1 gm Tablet PO (09:32)
[2021-07-13] MEDS: digoxin 125 mcg Tablet PO (09:32)
[2021-07-13] MEDS: primidone 50 mg Tablet PO (09:32)
[2021-07-13] MEDS: pantoprazole DR 40 mg Tablet PO (09:32)
[2021-07-13 10:02] VITALS: BP 139/65; PULSE 78; O2SAT 99
--- NOTE | 2021-07-13 14:44 | PHA.FALL ---
A Pharmacy Consult Was Conducted For Maile López Due To: Discharge Med review for discharge medications. Overview of new, current, held, and dc'd meds attempted with patient - Offered each category individually for discussion. Patient stated received all meds at [facility] in [place].
--- NOTE | 2021-07-13 15:22 | USCV_ITS ---
Maile López Age: 75 Gender: F : 1945 Exam Date: 07/13/2021 11:05 Ordering Phys: Paulina See MD Technologist: NOÉ Exam Location[place] [facility] [place] Indication: multiple syncopal events in the last week. No DM. Long-term smoker, continues smoking. Risk Factors: multiple syncopal events in the last week. No DM. Long-term smoker, continues smoking. Previous Vascular Surgery: None Right Brachial BP: / Left Brachial BP: / Right Left Velocity (cm/s) Spectral Plaque Velocity (cm/s) Spectral Plaque Syst/Diast Broadening Syst/Diast Broadening 87.10/ 8.80 Min Homo Prox CCA 124.90/ 21.00 Min Homo 92.60/ 14.30 Min Homo Mid CCA 88.00 / 14.50 Min Homo 84.90/ 23.20 Min Homo Distal CCA 93.10 / 20.50 Min Homo 84.70/ 19.40 Mod Hetro Prox ICA 128.80/ 31.60 Mod Jhon 78.50/ 22.50 Min Homo Mid ICA 148.60/ 28.90 Mod Hetro 131.50/40.80 Min Homo Distal ICA 120.90/ 30.20 Mod Homo 114.70 Min Homo ECA 132.80 Min Homo 1.42 ICA/CCA 1.19 Antegrade Vertebral Antegrade 73.60/ 23.70 cm/s 67.00/ 15.80 cm/s Tri Subclavian Tri 81.60 119.6 0 FINDINGS Comparison: none available. Mixture of calcified and noncalcified plaque in the bifurcations. Irregular plaque in the left bifurcation. No severe stenosis. Antegrade vertebral arteries. CONCLUSIONS Bilateral ICA stenosis less than 50%. Mild carotid bifurcation atherosclerosis. Dr. Leigh Hayes DO (Electronically Signed) Final Date: 13 July 2021 14:52 S
--- NOTE | 2021-07-13 16:53 | PC.NURSE ---
discharge instructions given and explained.pt verb understanding of instructions.discharged to exit at 1530.spouse to drive pt home.
== END 2021-07-13 16:53 | disposition home or self-care (01) | DRG 641 ==
LOC: ER 13:42 → ICU 17:42 → CSU 07-12 16:55
PROVIDERS: Physician Assistant; Admitting Provider Internal Medicine; Emergency Provider Emergency Medicine; PCP Family Medicine; Visit Provider Student in an Organized Health Care Education/Training Program
DX: E87.1 Hypo-osmolality and hyponatremia (principal); N17.9 Acute kidney failure, unspecified; N39.0 Urinary tract infection, site not specified; K92.1 Melena; N18.9 Chronic kidney disease, unspecified; J44.9 Chronic obstructive pulmonary disease, unspecified; I25.10 Atherosclerotic heart disease of native coronary artery without angina pectoris; D64.9 Anemia, unspecified; E87.6 Hypokalemia; F17.210 Nicotine dependence, cigarettes, uncomplicated; B96.20 Unspecified Escherichia coli [E. coli] as the cause of diseases classified elsewhere; Z79.1 Long term (current) use of non-steroidal anti-inflammatories (NSAID); K29.60 Other gastritis without bleeding; K44.9 Diaphragmatic hernia without obstruction or gangrene; Z86.73 Personal history of transient ischemic attack (TIA), and cerebral infarction without residual deficits
CPT/HCPCS: 36415; 36416; 36600; 70450; 71045; 74176; 80048; 80053; 80162; 81001; 82533; 82803; 82962; 83605; 83735; 84443; 84484; 85018; 85025; 87077; 87086; 87186; 87635; 93005; 93306; 93880; 96365; 96366; 96367; 96372; 99285; C9113; J0696; J1650; J3480; J7030

== ENCOUNTER → 2021-07-26 10:45 | Outpatient (BNVA) | payer MEDICARE, MEDICAID, SELFPAY | PROVIDERS: PCP Family Medicine; Visit Provider Surgery | DX: Z20.822 Contact with and (suspected) exposure to COVID-19 (principal) | CPT/HCPCS: 87635 ==

== ENCOUNTER 2021-07-28 07:59 | Outpatient (CLI) | payer MEDICARE, MEDICAID, SELFPAY ==
[2021-07-28 08:56] LABS: Basophils % 0.5 %; Eosinophils # 0.2 10^3/uL (0.0-0.8); Eosinophils % 2.6 %; Hematocrit 29.5 % (37.0-47.0); Lymphocytes # 1.8 10^3/uL (0.8-4.8); Mean Corpuscular HGB Conc 33.9 g/dL (30.0-36.0); Mean Corpuscular Hemoglobin 33.4 pg (28.0-34.0); Mean Corpuscular Volume 98.7 fl (81-99); Mean Platelet Volume 8.9 fL (7.4-10.4); Monocytes # 0.5 10^3/uL (0.2-0.9); Monocytes % 5.5 %; Neutrophils # 5.64 10^3/uL (1.8-7.7); Neutrophils % 69.3 %; Nucleated Red Blood Cells % 0 %; Platelet Count 500 10^3/cmm (130-400); Red Blood Count 2.99 10^6/uL (4.1-5.3); Red Cell Distribution Width 12.5 % (12.1-15.1); White Blood Count 8.1 10^3/uL (4.0-10.0)
[2021-07-28 09:22] LABS: Alanine Aminotransferase < 5 U/L (0-33); Albumin Level 4.4 g/dL (3.5-5.2); Alkaline Phosphatase 101 IU/L (35-105); Anion Gap 20.8 (5-19); Aspartate Amino Transferase 7 U/L (0-32); Blood Urea Nitrogen 41 mg/dL (8-23); Calcium 9.2 mg/dL (8.5-10.5); Carbon Dioxide 22 mmol/L (22-29); Chloride 87 mmol/L (98-107); Globulin 2.6 g/dL (1.3-4.6); Glucose 70 mg/dL (65-115); Osmolality Calculated 273 mOsm/kg (285-295); Sodium 127 mmol/L (136-145); Total Bilirubin 0.2 mg/dL (0.15-1.2)
[2021-07-28 09:30] LABS: Potassium 2.8 mmol/L (3.5-5.1)
== END 2021-07-28 08:00 | disposition home or self-care (01) ==
PROVIDERS: PCP Family Medicine; Visit Provider Family Medicine
DX: Z01.89 Encounter for other specified special examinations (principal)
CPT/HCPCS: 36415; 80053; 85025

== ENCOUNTER 2021-07-28 10:09 | Emergency (ER) | payer MEDICARE, MEDICAID, SELFPAY ==
[2021-07-28 10:18] VITALS: BP 101/63; PULSE 87; RESP 18; TEMP 36.3; O2SAT 96; BMI 17.4
--- NOTE | 2021-07-28 10:40 | W.ED.RECABL ---
HPI - Recheck/Abnormal Lab/Rx General: Chief Complaint: Recheck/Abnormal Lab/Rx Stated Complaint: Sent from drs office, Potassium low Time Seen by Provider: 07/28/21 10:26 Source: patient Mode of arrival: ambulatory Limitations: no limitations History of Present Illness: 75-year-old female presents emergency room after having outpatient labs done by her PCP. Her creatinine is gone from baseline of 1-2.3 and her potassium is down to 2.8 her Lasix was put on hold and she was directed to the ER. She denies any chest pain any shortness of breath any other symptoms she has continued to have urine output. MD complaint: abnormal lab Returns today for: called because of abnormal lab/test Symptoms since prior visit: no new symptoms Context: called for abnormal lab result Associated symptoms: none Review of Systems Const: Denies: fever(s), chills, body aches, change in appetite, fatigue or malaise ENMT: Denies: throat pain, ear or mastoid pain, nasal discharge or nasal congestion Card: Denies: chest pain, edema, dyspnea on exertion or orthopnea Resp: Denies: dyspnea, productive cough or non-productive cough GI: Denies: abdominal pain, nausea, vomiting, hematemesis, coffee ground emesis, diarrhea, constipation, bloating, hematochezia or melena : Denies: flank pain, difficulty voiding, dysuria, urinary frequency or urinary urgency Skin/Breast: Denies: rash or pruritus PFS ED PFSH: Medical History Anemia Chronic kidney disease COPD (chronic obstructive pulmonary disease) Coronary artery disease Hypokalemia Orthostatic dizziness Postural orthostatic tachycardia syndrome Surgical History H/O esophagogastroduodenoscopy (07/30/21) Duodenitis H/O ventral hernia repair History of 3 sections History of appendectomy Status post colonoscopy (07/30/21) Diverticulosis Status post laparoscopic cholecystectomy (04/14/21) Status post right inguinal hernia repair Family History Father Stroke Denies family history of Diabetes CAD (coronary artery disease) Family history of premature coronary artery disease Social History Smoking and tobacco status: current some day smoker cigarettes Packs smoked per day: 1.5 Years cigarettes smoked: 57 Quit status (tobacco): not considering quitting Alcohol intake: never Lives independently: Yes Household members: spouse Marital status: Current occupational status: retired History of recent travel: No Current gender identity: Female Physical Exam Const: COMMON NORMALS: no acute distress GENERAL APPEARANCE: cooperative and comfortable ORIENTATION/CONSCIOUSNESS: Yes awake, Yes oriented to person, Yes oriented to place and Yes oriented to time HENMT: COMMON NORMALS: normocephalic, atraumatic and hearing grossly normal bilaterally HEAD & SCALP: normocephalic and atraumatic Neck/C-Spine: COMMON NORMALS: no JVD Resp: COMMON NORMALS: normal respiratory effort, No retractions, No use of accessory muscles and clear to auscultation bilaterally AUSCULTATION: clear to auscultation bilaterally Cardio: COMMON NORMALS: no JVD, regular rate, regular rhythm and No murmurs present (Cardio) RATE: regular rate RHYTHM: regular rhythm GI: COMMON NORMALS: Soft to palpation and No hepatosplenomegaly present AUSCULTATION: Yes normoactive bowel sounds PALPATION: Yes Soft to palpation, No Tenderness to palpation present (GI), No Guarding due to palpation present (GI) and Yes No hepatosplenomegaly present Extremity: COMMON NORMALS: normal to inspection, capillary refill normal, no clubbing, cyanosis or edema, no calf tenderness and no pedal edema Neuro: SENSORIUM/ORIENTATION: Yes oriented to person, Yes oriented to place and Yes oriented to time Skin: COMMON NORMALS: no rashes or lesions noted GENERAL SKIN EXAM: no rashes or lesions noted Course Vital Signs: Vital signs: Vital Signs Temperature 97.4 F L 07/28/21 10:18 Pulse Rate 65 07/28/21 11:55 Respiratory Rate 15 07/28/21 11:55 Blood Pressure 129/59 07/28/21 11:55 Pulse Oximetry 98 07/28/21 11:55 MDM - Recheck/Abnormal Lab/Rx Medical Decision Making Potassium supplement given patient improving discharge home follow-up 2 days with primary care for repeat BMP. Hold Lasix increase potassium supplement Medical Records I reviewed the patient's medical records. Lab Data I reviewed the patient's lab results. Discharge Plan Discharge Patient Disposition: Home Clinical Impression: Hypokalemia Condition: Stable Prescriptions: New potassium chloride 20 mEq tablet extended release 20 meq PO DAILY Qty: 20 0RF No Action simvastatin 20 mg tablet 20 mg PO DAILY 0RF primidone 50 mg tablet 50 mg PO BID 0RF amitriptyline 25 mg tablet 25 mg PO BEDTIME 0RF nitroglycerin 0.4 mg tablet, sublingual 0.4 mg sublingual PRN PRN (Reason: Chest Pain) 0RF ferrous sulfate [FeroSul] 325 mg (65 mg iron) tablet 325 mg PO BID 0RF digoxin 125 mcg (0.125 mg) tablet 125 mcg PO DAILY 0RF diltiazem HCl 60 mg capsule,extended release 12 hr 60 mg PO BID 0RF Hold Instructions: Resume on 07/20/21. hold until follow up with cardiology metoprolol succinate 25 mg tablet extended release 24 hr 12.5 mg PO DAILY 0RF isosorbide dinitrate 5 mg tablet 2.5 mg PO BID 0RF Hold Instructions: Resume on 07/20/21. hold until follow up with cardiology sucralfate 1 gram Tablet 1 g PO AC&BEDTIME 30 Days Qty: 60 0RF pantoprazole 40 mg Tablet,Delayed Release (Dr/Ec) 40 mg PO BID 30 Days Qty: 60 0RF tizanidine 4 mg tablet 4 mg PO Q6H PRN (Reason: Spasms) 0RF Plavix 75 mg Tablet 75 mg PO DAILY 0RF omeprazole 40 mg Capsule,Delayed Release(Dr/Ec) 40 mg PO DAILY 0RF triamterene-hydrochlorothiazid 37.5-25 mg Tablet 1 tab PO DAILY 0RF nitrofurantoin monohyd/m-cryst 100 mg capsule 100 mg PO BID 0RF Discharge Orders: Discharge ED (Routine); Ordered 07/28/21 Ordered By: Gurpreet Palomino Referrals: Laith Patel DO [Primary Care Provider] - Discharge Diet: Usual diet Discharge Activity: Resume usual activity Patient Instructions: Opioid Safety Activity Restrictions/Additional Instructions: Hold Lasix. Potassium 20 mEq once daily. 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
[2021-07-28] MEDS: sodium chloride 0.9% 500 ML 999 ML IV (10:53)
[2021-07-28] MEDS: potassium chloride oral liq 20 mEq/15 mL UDC 60 MEQ PO (10:54)
[2021-07-28 10:58] VITALS: BP 93/58; PULSE 63; RESP 14; O2SAT 100
[2021-07-28 11:55] VITALS: BP 129/59; PULSE 65; RESP 15; O2SAT 98
== END 2021-07-28 11:56 | disposition home or self-care (01) ==
PROVIDERS: Emergency Provider Family Medicine; PCP Family Medicine
DX: E87.6 Hypokalemia (principal); Z79.02 Long term (current) use of antithrombotics/antiplatelets; J44.9 Chronic obstructive pulmonary disease, unspecified; I25.10 Atherosclerotic heart disease of native coronary artery without angina pectoris; F17.210 Nicotine dependence, cigarettes, uncomplicated; Z01.89 Encounter for other specified special examinations
CPT/HCPCS: 36415; 80053; 85025; 96360; 99283; J7040

== ENCOUNTER 2021-07-30 06:01 | Day surgery (SDC) | payer MEDICARE, MEDICAID, SELFPAY ==
[2021-07-28 12:22] VITALS: BMI 17.4
[2021-07-30 06:43] VITALS: BP 129/71; PULSE 91; RESP 18; TEMP 36.3; O2SAT 100
[2021-07-30] MEDS: sodium chloride 0.9% 1,000 ML 30 ML IV (06:46)
--- NOTE | 2021-07-30 06:53 | P.HP_ITS ---
Same Day Surgery H&P Indication for Procedure/HPI DATE OF PROCEDURE: July 30, 2021 CHIEF COMPLAINT/INDICATIONFOR SURGICAL PROCEDURE: screening PREOP DIAGNOSIS: diagnostic PLANNED PROCEDURE: Operation Date: 07/30/21 07:00 Proposed Procedures p Colonoscopy [id number]/r11.2/r10.31(Not Applicable) - Elie Kern MD s EGD(Not Applicable) - Elie Kern MD Medications/Allergies* Home Medications Medication Instructions Recorded Confirmed Type amitriptyline 25 mg tablet 25 mg PO BEDTIME 09/09/19 07/30/21 History nitroglycerin 0.4 mg sublingual 0.4 mg SUBLINGUAL PRN PRN 09/09/19 07/30/21 History tablet primidone 50 mg tablet 50 mg PO BID tab 07/16/20 07/30/21 History simvastatin 20 mg tablet 20 mg PO DAILY 01/04/21 07/30/21 History digoxin 125 mcg (0.125 mg) tablet 125 mcg PO DAILY 07/09/21 07/30/21 History diltiazem HCl 60 mg 60 mg PO BID 07/09/21 07/30/21 History capsule,extended release 12 hr ferrous sulfate 325 mg (65 mg 325 mg PO BID 07/09/21 07/30/21 History iron) tablet (FeroSul) isosorbide dinitrate 5 mg tablet 5 mg PO BID 07/09/21 07/30/21 History metoprolol succinate 25 mg 12.5 mg PO DAILY 07/09/21 07/30/21 History tablet,extended release 24 hr furosemide 20 mg tablet 20 mg PO DAILY 07/30/21 07/30/21 History hydrocodone 5 mg-acetaminophen 325 1 tab PO Q6H PRN 07/30/21 07/30/21 History mg tablet naproxen 500 mg tablet 500 mg PO BID PRN 07/30/21 07/30/21 History tizanidine 4 mg tablet 4 mg PO Q6H PRN 07/30/21 07/30/21 History Allergies/Adverse Reactions Allergy/AdvReac Type Severity Reaction Status Date / Time iodine Allergy Unknown Verified 07/28/21 12:05 Penicillins Allergy ALGY-Anaphy Verified 07/28/21 12:05 laxis Current Medications: Generic Name Dose Route Start Last Admin Trade Name Freq PRN Reason Stop Dose Admin Sodium Chloride 1,000 mls @ 30 mls/hr 07/30/21 06:15 07/30/21 06:46 Sodium Chloride 0.9% IV 07/31/21 06:14 30 mls/hr .Q24H DARWIN Administration Pertinent History/Comorbid Conditions* Medical History (Updated 07/28/21 @ 11:27 by Gurpreet Palomino DO) Anemia Chronic kidney disease COPD (chronic obstructive pulmonary disease) Coronary artery disease Hypokalemia Orthostatic dizziness Postural orthostatic tachycardia syndrome Surgical History (Updated 04/29/21 @ 14:57 by Elie Kern MD) H/O esophagogastroduodenoscopy H/O ventral hernia repair History of 3 sections History of appendectomy Status post colonoscopy Status post laparoscopic cholecystectomy (04/14/21) Status post right inguinal hernia repair Family History (Updated 07/16/20 @ 09:15 by Leandra Walton RN) Stroke Father Denies family history of Diabetes CAD (coronary artery disease) Family history of premature coronary artery disease Social History Smoking and tobacco status: current some day smoker cigarettes Packs smoked per day: 1.5 Years cigarettes smoked: 57 Quit status (tobacco): not considering quitting Alcohol intake: never Lives independently: Yes Household members: spouse Marital status: Current occupational status: retired History of recent travel: No Current gender identity: Female Pertinent Exam Findings alert, oriented x 3 and regular rate & rhythm Recommendations Surgery/Procedure today Coding Level of Care Code Acute Steam Fitter Supervisor Maintenance for Justus Greenwood
--- NOTE | 2021-07-30 06:54 | P.ANESASSM_ITS ---
Pre-Anesthetic Assessment Height/Weight: Height 1.52 m Weight 40.37 kg Temp Pulse Resp BP Pulse Ox 97.3 F L 91 18 129/71 100 07/30/21 06:43 07/30/21 06:43 07/30/21 06:43 07/30/21 06:43 07/30/21 06:43 Preop Diagnosis: diagnostic Operation Date: 07/30/21 07:00 Proposed Procedures p Colonoscopy [id number]/r11.2/r10.31(Not Applicable) - Elie Kern MD s EGD(Not Applicable) - Elie Kern MD Was Beta Mónica taken within 24 hours: N/A Was Clonidine taken within 24 hours: N/A Last intake: Intake Last Liquid Date 07/29/21 Last Liquid Time 20:00 Last Solid Date 07/28/21 Last Solid Time 18:30 Social No alcohol and No tobacco Exam alert, oriented x 3, clear to auscultation bilaterally and regular rate & rhythm Airway Submandibular: within normal limits Cervical ROM: within normal limits Mallampati: Class II Dentition: false History/ROS No significant history except as noted and No significant complaints Pulmonary Chronic Obstructive Pulmonary Disease CV/HEM Anemia, Coronary Artery Disease and Myocardial Infarction Chronic Renal Insufficiency Hepatic None reported GI None reported Metabolic None reported Musc/skel Osteoarthritis/DJD Neuropsych None reported Anesthetic Plan ASA status: 3 Anesthesia: Anesthesia Evaluation and MAC Risk of > 500 ml blood loss (7ml/kg in children): No Medications/Allergies Home Medications Medication Instructions Recorded Confirmed Last Taken Type amitriptyline 25 mg tablet 25 mg PO BEDTIME 09/09/19 07/30/21 07/29/21 History nitroglycerin 0.4 mg sublingual 0.4 mg SUBLINGUAL PRN PRN 09/09/19 07/30/21 Unknown History tablet primidone 50 mg tablet 50 mg PO BID tab 07/16/20 07/30/21 07/29/21 History simvastatin 20 mg tablet 20 mg PO DAILY 01/04/21 07/30/21 07/29/21 History digoxin 125 mcg (0.125 mg) tablet 125 mcg PO DAILY 07/09/21 07/30/21 07/29/21 History diltiazem HCl 60 mg 60 mg PO BID 07/09/21 07/30/21 07/29/21 History capsule,extended release 12 hr ferrous sulfate 325 mg (65 mg 325 mg PO BID 07/09/21 07/30/21 07/29/21 History iron) tablet (FeroSul) isosorbide dinitrate 5 mg tablet 5 mg PO BID 07/09/21 07/30/21 07/29/21 History metoprolol succinate 25 mg 12.5 mg PO DAILY 07/09/21 07/30/21 07/29/21 History tablet,extended release 24 hr pantoprazole 40 mg tablet,delayed 40 mg PO BID 30 Days #60 tab 07/13/21 07/30/21 07/29/21 Rx release sucralfate 1 gram tablet 1 g PO AC&BEDTIME 30 Days #60 tab 07/13/21 07/30/21 0 07/29/21 Rx potassium chloride 20 mEq 20 meq PO DAILY #20 tab 07/28/21 07/30/21 07/29/21 Rx tablet,extended release furosemide 20 mg tablet 20 mg PO DAILY 07/30/21 07/30/21 07/29/21 History hydrocodone 5 mg-acetaminophen 325 1 tab PO Q6H PRN 07/30/21 07/30/21 07/28/21 History mg tablet naproxen 500 mg tablet 500 mg PO BID PRN 07/30/21 07/30/21 07/28/21 History tizanidine 4 mg tablet 4 mg PO Q6H PRN 07/30/21 07/30/21 Unknown History Allergies Allergy/AdvReac Type Severity Reaction Status Date / Time iodine Allergy Unknown Verified 07/28/21 12:05 Penicillins Allergy ALGY-Anaphy Verified 07/28/21 12:05 laxis Current Medications Generic Name Dose Route Start Last Admin Trade Name Freq PRN Reason Stop Dose Admin Sodium Chloride 1,000 mls @ 30 mls/hr 07/30/21 06:15 07/30/21 06:46 Sodium Chloride 0.9% IV 07/31/21 06:14 30 mls/hr .Q24H DARWIN Administration PFSH Anesthesia Medical History Anemia Chronic kidney disease COPD (chronic obstructive pulmonary disease) Coronary artery disease Hypokalemia Orthostatic dizziness Postural orthostatic tachycardia syndrome Surgical History H/O esophagogastroduodenoscopy H/O ventral hernia repair History of 3 sections History of appendectomy Status post colonoscopy Status post laparoscopic cholecystectomy (04/14/21) Status post right inguinal hernia repair Family History Father Stroke Denies family history of Diabetes CAD (coronary artery disease) Family history of premature coronary artery disease Social History Smoking and tobacco status: current some day smoker cigarettes Packs smoked per day: 1.5 Years cigarettes smoked: 57 Quit status (tobacco): not considering quitting Alcohol intake: never Lives independently: Yes Household members: spouse Marital status: Current occupational status: retired History of recent travel: No Current gender identity: Female Data Anesthesia Cardiac Studies: Echocardiogram 07/11/21 Echocardiogram Ultrasound 09/10/19 Sestamibi Stress Test (Cardiology) 08/27/20 Cardiac Event Monitor 03/17/21
[2021-07-30 07:37] VITALS: BP 131/61; PULSE 58; RESP 16; TEMP 36.1; O2SAT 100
[2021-07-30 07:53] VITALS: BP 119/86; PULSE 59; RESP 16; O2SAT 100
--- NOTE | 2021-07-30 12:34 | ANE.PACU2 ---
Inpatient post-anesthesia follow up: Airway intact: Yes Vital signs: Temperature 97.0 F Pulse Rate 59 Respiratory Rate 16 Blood Pressure 119/86 Pulse Oximetry 100 Oxygen Delivery Me thod Room Air Oxygen Flow Rate 4 Fraction of Inspir ed Oxygen Hydration adequate: Yes Nausea and vomiting: No Pain level: 1 Mental status: Baseline
== END 2021-07-30 08:22 | disposition home or self-care (01) ==
PROVIDERS: PCP Family Medicine; Visit Provider Surgery
PROC: 0DJD8ZZ Inspection of Lower Intestinal Tract, Via Natural or Artificial Opening Endoscopic (ICD-10-PCS; CPT 45378; principal; 2021-07-30 07:00)
PROC: 0DJ08ZZ Inspection of Upper Intestinal Tract, Via Natural or Artificial Opening Endoscopic (ICD-10-PCS; CPT 43235; 2021-07-30 07:00)
DX: R10.31 Right lower quadrant pain (principal); R11.2 Nausea with vomiting, unspecified; K57.30 Diverticulosis of large intestine without perforation or abscess without bleeding; K29.80 Duodenitis without bleeding; K29.70 Gastritis, unspecified, without bleeding; J44.9 Chronic obstructive pulmonary disease, unspecified; I25.10 Atherosclerotic heart disease of native coronary artery without angina pectoris; I25.2 Old myocardial infarction; N18.9 Chronic kidney disease, unspecified; F17.210 Nicotine dependence, cigarettes, uncomplicated
CPT/HCPCS: 43239; 45378; 88305; J2704; J7030

== ENCOUNTER 2021-07-30 16:27 | Inpatient (IN) | payer MEDICARE, MEDICAID, SELFPAY ==
[2021-07-30 17:07] VITALS: BP 97/69; PULSE 114; RESP 19; O2SAT 98; BMI 17.4
--- NOTE | 2021-07-30 17:08 | ECG_ITS ---
[facility] Test Date: 2021-07-30 Pat Name: Maile López Department: Room: Gender: Female Major Gifts Officer: : 1945 Requested By: Gurpreet Gonzalez Order Number: [id number] Reading MD: SAMI RICHARD Measurements Intervals [place] Rate: 102 P: 71 VA: 134 QRS: 1 QRSD: 66 T: 68 QT: 323 QTc: 422 Interpretive Statements SINUS TACHYCARDIA POSSIBLE RIGHT VENTRICULAR CONDUCTION DELAY [RSR (QR) IN V1/V2] MODERATE ST DEPRESSION [0.05+ mV ST DEPRESSION] Compared to ECG 07/09/2021 11:49:21 ST (T wave) deviation now present Sinus rhythm no longer present T-wave abnormality no longer present Possible ischemia no longer present Electronically Signed On 07-30-2021 22:54:36 EVICTION SPECIALIST by SAMI RICHARD [id number]
--- NOTE | 2021-07-30 17:09 | XRR_ITS ---
PROCEDURE INFORMATION: Exam: XR Chest Exam date and time: 07/30/2021 5:09 PM Age: 75 years old Clinical indication: Other: AMS; Additional info: Dyspnea/cough TECHNIQUE: Imaging protocol: XR of the chest. Views: 1 view. COMPARISON: CR XR chest 1V portable [id number] 07/09/2021 11:09 AM FINDINGS: Lungs: Lungs are clear. Pleural spaces: There is no pleural effusion or pneumothorax. Heart/Mediastinum: Cardiomediastinal contours are unremarkable. Bones/joints: Bones are unremarkable. XR/XR chest 1V portable [id number] IMPRESSION: No acute findings.
--- NOTE | 2021-07-30 17:10 | ED_ITS ---
Documented by User: Gurpreet Palomino DO 08/02/21 08:14 HPI - General Adult General: Chief complaint: Syncope Stated complaint: AMS Time Seen by Provider: 07/30/21 17:06 Source: patient Mode of arrival: ambulatory History of Present Illness: 75-year-old female presents emergency room via EMS had a syncopal episode at home that was witnessed by the family. She had a colonoscopy and EGD earlier today. She reports an episode of hemoptysis associated with the event this afternoon. Initially she felt like her heart was racing and then she states she blacked out at the time she was playing with her dog. She denies any catheter head. However noted that during the course exam we had her sit up she had tachycardia and had some chest discomfort. She denies any recent fever sweats or chills. Onset (ago): minute(s) Severity: moderate Quality: aching Pain Consistency: constant Relieving factors: none Exacerbating factors: none Associated symptoms: Reports decreased appetite, nausea, palpitations and weakness; Deny chest pain, confusion, cough, diaphoresis, dyspnea, fevers/chills, headache(s), malaise, rash, seizures, short of breath, syncope or vomiting Treatments prior to arrival: none Review of Systems Const: Denies: malaise or diaphoresis ENMT: Denies: throat pain, ear or mastoid pain, nasal discharge or nasal congestion Card: Reports: palpitations; Denies: chest pain or syncope Resp: Denies: dyspnea GI: Reports: nausea; Denies: vomiting : Denies: flank pain, difficulty voiding, dysuria, urinary frequency or urinary urgency Skin/Breast: Denies: rash Neuro: Denies: headache(s) or confusion PFSH ED PFSH: Medical History Anemia Chronic kidney disease COPD (chronic obstructive pulmonary disease) Coronary artery disease Hypokalemia Orthostatic dizziness Postural orthostatic tachycardia syndrome Surgical History H/O esophagogastroduodenoscopy (07/30/21) Duodenitis H/O ventral hernia repair History of 3 sections History of appendectomy Status post colonoscopy (07/30/21) Diverticulosis Status post laparoscopic cholecystectomy (04/14/21) Status post right inguinal hernia repair Family History Father Stroke Denies family history of Diabetes CAD (coronary artery disease) Family history of premature coronary artery disease Social History Smoking and tobacco status: current some day smoker cigarettes Packs smoked per day: 1.5 Years cigarettes smoked: 57 Quit status (tobacco): not considering quitting Alcohol intake: never Lives independently: Yes Household members: spouse Marital status: Current occupational status: retired History of recent travel: No Current gender identity: Female Physical Exam Const: COMMON NORMALS: no acute distress GENERAL APPEARANCE: cooperative and comfortable ORIENTATION/CONSCIOUSNESS: Yes awake, Yes oriented to person, Yes oriented to place and Yes oriented to time HENMT: COMMON NORMALS: normocephalic, atraumatic and hearing grossly normal bilaterally HEAD & SCALP: normocephalic and atraumatic Neck/C-Spine: COMMON NORMALS: no JVD Resp: COMMON NORMALS: normal respiratory effort, No retractions, No use of accessory muscles and clear to auscultation bilaterally AUSCULTATION: clear to auscultation bilaterally Cardio: COMMON NORMALS: no JVD, regular rate, regular rhythm and No murmurs present (Cardio) RATE: regular rate RHYTHM: regular rhythm GI: COMMON NORMALS: No hepatosplenomegaly present AUSCULTATION: Yes normoactive bowel sounds PALPATION: Yes Tenderness to palpation present (GI) (Epigastric), No Guarding due to palpation present (GI) and Yes No hepatosplenomegaly present Extremity: COMMON NORMALS: normal to inspection, capillary refill normal, no clubbing, cyanosis or edema, no calf tenderness and no pedal edema Neuro: SENSORIUM/ORIENTATION: Yes oriented to person, Yes oriented to place and Yes oriented to time Skin: COMMON NORMALS: no rashes or lesions noted GENERAL SKIN EXAM: no rashes or lesions noted Course Vital Signs: Vital signs: Vital Signs Temperature 98.6 F 08/02/21 03:00 Pulse Rate 60 08/02/21 06:00 Respiratory Rate 16 08/02/21 05:30 Blood Pressure 107/50 08/02/21 05:30 Pulse Oximetry 93 08/02/21 05:30 [facility] - General Adult Medical Decision Making Patient seen initially on arrival. Labs ordered including a CT Dr. Kern have him in the department advised him the patient was here since he just recently done a colonoscopy and EGD on her. Care turned over to Dr. German at change of shift see his notes for final diagnosis and disposition. 75-year-old lady received in checkout from Dr. Palomino at change of shift. This lady had had a syncopal episode at home. She also had some GI bleeding. On evaluation here, she is pale. She is awake and alert. In CT scan, she vomited a fair amount of clot. She is on 1.5 L of fluid. She has 2 units of packed cells crossed to be transfused. Blood pressure is 100/50, heart rate 94. She has not vomited again . Creatinine is 1.9. Spoke with surgery, who did her EGD this morning. Recommendations are Protonix drip, transfusion, and serial hemoglobins. She will be admitted to the hospitalist service. Their recommendation is above plus octreotide. Hospitalist will see the patient in the ER. Lab Data : 08/02/21 04:58 08/02/21 04:[address] 07/30/21 17:19 IMPRESSION: No acute intracranial abnormality. Abdomen/Pelvis CT 07/30/21 18:35 IMPRESSION: 1. Mural thickening of the colon with air-fluid levels throughout. Findings are suggestive of nonspecific colitis versus other diarrheal illness. 2. Air noted in the urinary bladder, likely secondary to recent instrumentation. 3. No acute abnormality demonstrated of the solid organs. Chest X-Ray 07/31/21 02:30 IMPRESSION: Enteric tube tip is over the proximal duodenum. Laboratory Results WBC 9.3 10^3/uL (4.0-10.0) 07/30/21 17:25 RBC 1.91 10^6/uL (4.1-5.3) L 07/30/21 17:25 Hgb 6.2 g/dL (11.5-15.3) L* 07/30/21 20:19 Hct 19.6 % (37.0-47.0) L* 07/30/21 17:25 MCV 102.6 fl (81-99) H 07/30/21 17:25 MCH 34.6 pg (28.0-34.0) H 07/30/21 17:25 MCHC 33.7 g/dL (30.0-36.0) 07/30/21: RDW 13.0 % (12.1-15.1) 07/30/21 17:25 Plt Count 416 10^3/cmm (130-400) H 07/30/21 17:25 MPV 9.1 fL (7.4-10.4) 07/30/21 17:25 Neut % (Auto) 83.2 % 07/30/21 17:25 Lymph % (Auto) 11.9 % 07/30/21:25 [place] % (Auto) 3.9 % 07/30/21: Eos % (Auto) 0.3 % 07/30/21: Baso % (Auto) 0.3 % 07/30/21: Neut # (Auto) 7.72 10^3/uL (1.8-7.7) H 07/30/21: Lymph # (Auto) 1.1 10^3/uL (0.8-4.8) 07/30/21 17:25 [place] # (Auto) 0.4 10^3/uL (0.2-0.9) 07/30/21: Eos # (Auto) 0.0 10^3/uL (0.0-0.8) 07/30/21 17:25 Baso # (Auto) 0.0 10^3/uL (0.0-0.1) 07/30/21: Nucleated RBC % (auto) 0 % 07/30/21: Nucleated RBCs # 0.0 /100WBC 07/30/21 17:25 PT 14.80 SECONDS (12.1-14.9) 07/30/21 18:30 INR 1.13 (0.8-1.2) 07/30/21 18:30 APTT 19.6 SECONDS (23.9-36.7) L 07/30/21 18:30 Sodium 133 mmol/L (136-145) L 07/30/21 17:25 Potassium 3.3 mmol/L (3.5-5.1) L 07/30/21 17:25 Chloride 101 mmol/L (98-107) 07/30/21 17:25 Carbon Dioxide 20 mmol/L (22-29) L 07/30/21 17:25 Anion Gap 15.3 (5-19) 07/30/21 17:25 BUN 35 mg/dL (8-23) H 07/30/21 17:25 Creatinine 1.9 mg/dL (0.5-0.9) H 07/30/21 17:25 GFR Calculation Not Reportable 07/30/21 17:25 Glucose 120 mg/dL (65-115) H 07/30/21 17:25 Calculated Osmolality 285 mOsm/kg (285-295) 07/30/21 17:25 Calcium 8.1 mg/dL (8.5-10.5) L 07/30/21 17:25 Total Bilirubin 0.2 mg/dL (0.15-1.2) 07/30/21 17:25 AST 7 U/L (0-32) 07/30/21 17:25 ALT < 5 U/L (0-33) 07/30/21 17:25 Alkaline Phosphatase 76 IU/L (35-105) 07/30/21 17:25 Troponin T Baseline 22 ng/L (0-10) H 07/30/21 17:25 Troponin T 120 Minute 22.40 ng/L (0-10) H 07/30/21 19:30 Delta Troponin T 0.40 ABS# (0-10) 07/30/21 19:30 Total Protein 5.4 g/dL (6.6-8.7) L 07/30/21 17:25 Albumin 3.2 g/dL (3.5-5.2) L 07/30/21 17:25 Globulin 2.2 g/dL (1.3-4.6) 07/30/21 17:25 Digoxin 1.3 ng/mL (0.6-1.2) H 07/30/21 17:25 Blood Type A Positive 07/30/21 19:30 Rho(D) Type Positive 07/30/21 19:30 Antibody Screen Negative 07/30/21 19:30 Crossmatch See Detail 07/30/21 19:30 Discharge Plan Discharge Patient Disposition: Admitted As Inpatient Admit Provider: Benedicto Armijo Clinical Impression: Acute upper gastrointestinal bleeding, Anemia Condition: Stable Coding Level of Care Code ED Honeycomb Blanket Maker for Chg Fwd Documented by User: Jorgito German DO 07/30/21 21:21 HPI - General Adult General: Chief complaint: Syncope Stated complaint: AMS Time Seen by Provider: 07/30/21 17:06 PFSH ED PFSH: Medical History Anemia Chronic kidney disease COPD (chronic obstructive pulmonary disease) Coronary artery disease Hypokalemia Orthostatic dizziness Postural orthostatic tachycardia syndrome Surgical History H/O esophagogastroduodenoscopy (07/30/21) Duodenitis H/O ventral hernia repair History of 3 sections History of appendectomy Status post colonoscopy (07/30/21) Diverticulosis Status post laparoscopic cholecystectomy (04/14/21) Status post right inguinal hernia repair Family History Father Stroke Denies family history of Diabetes CAD (coronary artery disease) Family history of premature coronary artery disease Social History Smoking and tobacco status: current some day smoker cigarettes Packs smoked per day: 1.5 Years cigarettes smoked: 57 Quit status (tobacco): not considering quitting Alcohol intake: never Lives independently: Yes Household members: spouse Marital status: Current occupational status: retired History of recent travel: No Current gender identity: Female Course Vital Signs: Vital signs: Vital Signs Temperature 98.6 F 08/02/21 03:00 Pulse Rate 60 08/02/21 06:00 Respiratory Rate 16 08/02/21 05:30 Blood Pressure 107/50 08/02/21 05:30 Pulse Oximetry 93 08/02/21 05:30 MDM - General Adult Medical Decision Making 75-year-old lady received in checkout from Dr. Palomino at change of shift. This lady had had a syncopal episode at home. She also had some GI bleeding. On ev aluation here, she is pale. She is awake and alert. In CT scan, she vomited a fair amount of clot. She is on 1.5 L of fluid. She has 2 units of packed cells crossed to be transfused. Blood pressure is 100/50, heart rate 94. She has not vomited again. Creatinine is 1.9. Spoke with surgery, who did her EGD this morning. Recommendations are Protonix drip, transfusion, and serial hemoglobins. She will be admitted to the hospitalist service. Their recommendation is above plus octreotide. Hospitalist will see the patient in the ER. Lab Data : 08/02/21 04:58 08/02/21 04:[address] 07/30/21 17:19 IMPRESSION: No acute intracranial abnormality. Abdomen/Pelvis CT 07/30/21 18:35 IMPRESSION: 1. Mural thickening of the colon with air-fluid levels throughout. Findings are suggestive of nonspecific colitis versus other diarrheal illness. 2. Air noted in the urinary bladder, likely secondary to recent instrumentation. 3. No acute abnormality demonstrated of the solid organs. Chest X-Ray 07/31/21 02:30 IMPRESSION: Enteric tube tip is over the proximal duodenum. Laboratory Results WBC 9.3 10^3/uL (4.0-10.0) 07/30/21 17:25 RBC 1.91 10^6/uL (4.1-5.3) L 07/30/21 17:25 Hgb 6.2 g/dL (11.5-15.3) L* 07/30/21 20:19 Hct 19.6 % (37.0-47.0) L* 07/30/21 17:25 MCV 102.6 fl (81-99) H 07/30/21 17:25 MCH 34.6 pg (28.0-34.0) H 07/30/21 17:25 MCHC 33.7 g/dL (30.0-36.0) 07/30/21 17:25 RDW 13.0 % (12.1-15.1) 07/30/21 17:25 Plt Count 416 10^3/cmm (130-400) H 07/30/21 17:25 MPV 9.1 fL (7.4-10.4) 07/30/21 17:25 Neut % (Auto) 83.2 % 07/30/21 17:25 Lymph % (Auto) 11.9 % 07/30/21 17:25 [place] % (Auto) 3.9 % 07/30/21 17:25 Eos % (Auto) 0.3 % 07/30/21 17:25 Baso % (Auto) 0.3 % 07/30/21 17:25 Neut # (Auto) 7.72 10^3/uL (1.8-7.7) H 07/30/21 17:25 Lymph # (Auto) 1.1 10^3/uL (0.8-4.8) 07/30/21 17:25 [place] # (Auto) 0.4 10^3/uL (0.2-0.9) 07/30/21 17:25 Eos # (Auto) 0.0 10^3/uL (0.0-0.8) 07/30/21 17:25 Baso # (Auto) 0.0 10^3/uL (0.0-0.1) 07/30/21 17: Nucleated RBC % (auto) 0 % 07/30/21 17: Nucleated RBCs # 0.0 /100WBC 07/30/21 17:25 PT 14.80 SECONDS (12.1-14.9) 07/30/21 18:30 INR 1.13 (0.8-1.2) 07/30/21 18:30 APTT 19.6 SECONDS (23.9-36.7) L 07/30/21 18:30 Sodium 133 mmol/L (136-145) L 07/30/21 17:25 Potassium 3.3 mmol/L (3.5-5.1) L 07/30/21 17:25 Chloride 101 mmol/L (98-107) 07/30/21 17:25 Carbon Dioxide 20 mmol/L (22-29) L 07/30/21 17:25 Anion Gap 15.3 (5-19) 07/30/21 17:25 BUN 35 mg/dL (8-23) H 07/30/21 17:25 Creatinine 1.9 mg/dL (0.5-0.9) H 07/30/21 17:25 GFR Calculation Not Reportable 07/30/21 17:25 Glucose 120 mg/dL (65-115) H 07/30/21 17:25 Calculated Osmolality 285 mOsm/kg (285-295) 07/30/21 17:25 Calcium 8.1 mg/dL (8.5-10.5) L 07/30/21 17:25 Total Bilirubin 0.2 mg/dL (0.15-1.2) 07/30/21 17:25 AST 7 U/L (0-32) 07/30/21 17:25 ALT < 5 U/L (0-33) 07/30/21 17:25 Alkaline Phosphatase 76 IU/L (35-105) 07/30/21 17:25 Troponin T Baseline 22 ng/L (0-10) H 07/30/21 17:25 Troponin T 120 Minute 22.40 ng/L (0-10) H 07/30/21 19:30 Delta Troponin T 0.40 ABS# (0-10) 07/30/21 19:30 Total Protein 5.4 g/dL (6.6-8.7) L 07/30/21 17:25 Albumin 3.2 g/dL (3.5-5.2) L 07/30/21 17:25 Globulin 2.2 g/dL (1.3-4.6) 07/30/21 17:25 Digoxin 1.3 ng/mL (0.6-1.2) H 07/30/21 17:25 Blood Type A Positive 07/30/21 19:30 Rho(D) Type Positive 07/30/21 19:30 Antibody Screen Negative 07/30/21 19:30 Crossmatch See Detail 07/30/21 19:30 Critical Care Time Critical Care Time: Critical Care Time: Yes Total Critical Care Time: 36 Attestation: This case had a high probability of a clinically significant, sudden, or life threatening deterioration of this patient's condition which required my full and direct attention, intervention and personal management. This is independent of any procedures performed. Discharge Plan Discharge Patient Disposition: Admitted As Inpatient Admit Provider: Benedicto Armijo Clinical Impression: Acute upper gastrointestinal bleeding, Anemia Condition: Stable Coding Level of Care Code ED Honeycomb Blanket Maker for Justus Greenwood
--- NOTE | 2021-07-30 17:19 | CTR_ITS ---
PROCEDURE INFORMATION: Exam: CT Head Without Contrast Exam date and time: 07/30/2021 5:19 PM Age: 75 years old Clinical indication: Syncope and collapse; Patient HX: Syncope episode; Additional info: Loc/ams TECHNIQUE: Imaging protocol: Computed tomography of the head without contrast. Radiation optimization: All CT scans at this facility use at least one of these dose optimization techniques: automated exposure control; mA and/or kV adjustment per patient size (includes targeted exams where dose is matched to clinical indication); or iterative reconstruction. COMPARISON: CT head wo con* [id number] 07/09/2021 12:15 PM RADIATION DOSE METRICS: Total DLP (mGy-cm): 642.36 FINDINGS: Brain: Mild atrophy and mild white matter chronic microvascular changes are noted. No hemorrhage or evidence of acute infarction. Cerebral ventricles: No ventriculomegaly. Paranasal sinuses: Visualized sinuses are unremarkable. No fluid levels. Mastoid air cells: Visualized mastoid air cells are well aerated. Bones/joints: Unremarkable. No acute fracture. Soft tissues: Unremarkable. CT/CT head wo con* [id number] IMPRESSION: No acute intracranial abnormality.
[2021-07-30 17:58] LABS: Basophils % 0.3 %; Eosinophils % 0.3 %; Hemoglobin 6.6 g/dL (11.5-15.3); Lymphocytes # 1.1 10^3/uL (0.8-4.8); Lymphocytes % 11.9 %; Mean Corpuscular HGB Conc 33.7 g/dL (30.0-36.0); Mean Corpuscular Hemoglobin 34.6 pg (28.0-34.0); Mean Corpuscular Volume 102.6 fl (81-99); Mean Platelet Volume 9.1 fL (7.4-10.4); Monocytes # 0.4 10^3/uL (0.2-0.9); Monocytes % 3.9 %; Neutrophils # 7.72 10^3/uL (1.8-7.7); Neutrophils % 83.2 %; Nucleated Red Blood Cells % 0 %; Platelet Count 416 10^3/cmm (130-400); Red Blood Count 1.91 10^6/uL (4.1-5.3); White Blood Count 9.3 10^3/uL (4.0-10.0)
[2021-07-30 18:13] LABS: Troponin(5th) Baseline 22 ng/L (0-10)
[2021-07-30 18:14] LABS: Alanine Aminotransferase < 5 U/L (0-33); Albumin Level 3.2 g/dL (3.5-5.2); Alkaline Phosphatase 76 IU/L (35-105); Anion Gap 15.3 (5-19); Aspartate Amino Transferase 7 U/L (0-32); Blood Urea Nitrogen 35 mg/dL (8-23); Calcium 8.1 mg/dL (8.5-10.5); Carbon Dioxide 20 mmol/L (22-29); Chloride 101 mmol/L (98-107); Globulin 2.2 g/dL (1.3-4.6); Glucose 120 mg/dL (65-115); Osmolality Calculated 285 mOsm/kg (285-295); Potassium 3.3 mmol/L (3.5-5.1); Sodium 133 mmol/L (136-145); Total Bilirubin 0.2 mg/dL (0.15-1.2); Total Protein 5.4 g/dL (6.6-8.7)
[2021-07-30 18:19] LABS: Hematocrit 19.6 % (37.0-47.0)
--- NOTE | 2021-07-30 18:35 | CTR_ITS ---
PROCEDURE INFORMATION: Exam: CT Abdomen And Pelvis Without Contrast Exam date and time: 07/30/2021 6:35 PM Age: 75 years old Clinical indication: Nausea and vomiting; Prior surgery; Surgery type: Appy, gb, hernia, c-sect; Patient HX: PT had egd and colonoscopy earlier today now w n/v blood; Additional info: Abd pain TECHNIQUE: Imaging protocol: Computed tomography of the abdomen and pelvis without contrast. Radiation optimization: All CT scans at this facility use at least one of these dose optimization techniques: automated exposure control; mA and/or kV adjustment per patient size (includes targeted exams where dose is matched to clinical indication); or iterative reconstruction. COMPARISON: CT abdomen pelvis wo con [id number] 07/09/2021 12:18 PM RADIATION DOSE METRICS: Total DLP (mGy-cm): 650.98 FINDINGS: Lungs: Bullous changes are noted at the lung bases. Liver: The liver is unremarkable in appearance. Gallbladder and bile ducts: The gallbladder is surgically absent. Pancreas: The pancreas is normal in appearance. No pancreatic duct dilatation. Spleen: The spleen is normal in size and appearance. Adrenal glands: Thickening of the adrenal glands. No adrenal masses. Kidneys and ureters: The kidneys are normal in morphology. No hydronephrosis. No solid mass. Stomach and bowel: The stomach is distended with ingested material. The stomach appears morphologically normal. The small bowel is unremarkable as demonstrated. Mural thickening of the colon with air-fluid levels throughout. Appendix: No evidence of appendicitis. Intraperitoneal space: No pneumoperitoneum. No significant fluid collection. Vasculature: Minimal atherosclerosis of the aorta. No abdominal aortic aneurysm. Lymph nodes: No enlarged lymph nodes. Urinary bladder: Air noted in the urinary bladder, likely secondary to recent instrumentation. Reproductive: Uterus and adnexa appear unremarkable. Bones/joints: No fracture or other acute osseous abnormality. Soft tissues: Unremarkable. CT/CT abdomen pelvis wo con [id number] IMPRESSION: 1. Mural thickening of the colon with air-fluid levels throughout. Findings are suggestive of nonspecific colitis versus other diarrheal illness. 2. Air noted in the urinary bladder, likely secondary to recent instrumentation. 3. No acute abnormality demonstrated of the solid organs.
[2021-07-30 18:53] LABS: INR 1.13 (0.8-1.2); Partial Thromboplastin Time 19.6 SECONDS (23.9-36.7)
[2021-07-30 18:53] LABS: Digoxin 1.3 ng/mL (0.6-1.2)
[2021-07-30] MEDS: ondansetron 2 mg/ML SDV 2 mL 4 MG IVP (19:58)
[2021-07-30 20:32] LABS: Hemoglobin 6.2 g/dL (11.5-15.3)
[2021-07-30] MEDS: sodium chloride 0.9% 500 ML 999 ML IV (20:35)
[2021-07-30] MEDS: pantoprazole 40 mg SDV 80 MG IVP (20:35)
[2021-07-30 21:34] VITALS: BP 103/47; PULSE 83; RESP 18; TEMP 36.6
[2021-07-30 21:45] VITALS: BP 118/58; PULSE 83; RESP 18; TEMP 36.6; O2SAT 96
--- NOTE | 2021-07-30 22:07 | PM.HP ---
Providers/Chief Complaint Primary Care Provider: Laith Patel Chief Complaint: AMS History of Present Illness Maile López is a 75 year old female with a past medical history of CAD, history of CVA, COPD, pots, CKD anemia, recent hospitalization for hyponatremia secondary to dehydration, had episodes of syncope unresponsiveness, recent history of melanotic stools, history of upper gastric endoscopy in February which showed hiatal hernia and gastritis. Today she presented to outpatient GI lab to have endoscopy for melanotic stools, found to have diverticulosis, duodenitis, she went home, sometime this afternoon, she tells me that she wasn't feeling well, having a headache, took Tylenol, and she started to vomit blood and passed out. She does report that yesterday she took her Plavix, and today after her procedure she took Plavix for her CAD. In the emergency room, she had couple of vomiting episodes, hematemesis, dark red blood with clots. ER physician I spoke to Dr. Kern who advised to medically manage and if she continues to have vomiting episodes that he would see in the morning and consider repeating EGD. Here for her hemoglobin 6.2, receiving 1 unit PRBC, placed on Protonix drip, I have advised ER physician to place her on octreotide drip, given her large volume hematemesis place a nasogastric tube to decrease her risk of aspiration. Currently she tells that she is feeling better, but does feel nauseous, she had a couple episodes of vomiting in her room and CT but after she feels better. Currently denies any lightheadedness, or dizziness. Review of Systems Const: Denies: fever(s) Eyes: Denies: blurry vision ENMT: Denies: nasal congestion Card: Reports: palpitations and syncope; Denies: chest pain or irregular heart rhythm Resp: Denies: dyspnea or non-productive cough GI: Reports: abdominal pain, nausea, vomiting, hematemesis and coffee ground emesis; Denies: diarrhea, hematochezia or melena : Denies: dysuria or urinary frequency Musc: Denies: neck pain or back pain Skin/Breast: Denies: rash Neuro: Reports: headache(s) and dizziness; Denies: numbness in extremities, weakness in extremities, Slurred speech present or difficulty communicating thoughts Medications/Allergies Home Medications Medication Instructions Recorded Confirmed Last Taken Type amitriptyline 25 mg tablet 25 mg PO BEDTIME 09/09/19 07/30/21 07/29/21 History nitroglycerin 0.4 mg sublingual 0.4 mg SUBLINGUAL PRN PRN 09/09/19 07/30/21 Unknown History tablet primidone 50 mg tablet 50 mg PO BID tab 07/16/20 07/30/21 07/30/21 History simvastatin 20 mg tablet 20 mg PO DAILY 01/04/21 07/30/21 07/29/21 History digoxin 125 mcg (0.125 mg) tablet 125 mcg PO DAILY 07/09/21 07/30/21 07/30/21 History diltiazem HCl 60 mg 60 mg PO BID 07/09/21 07/30/21 07/30/21 History capsule,extended release 12 hr ferrous sulfate 325 mg (65 mg 325 mg PO BID 07/09/21 07/30/21 07/30/21 History iron) tablet (FeroSul) isosorbide dinitrate 5 mg tablet 2.5 mg PO BID 07/09/21 07/30/21 07/30/21 History metoprolol succinate 25 mg 12.5 mg PO DAILY 07/09/21 07/30/21 07/30/21 History tablet,extended release 24 hr pantoprazole 40 mg tablet,delayed 40 mg PO BID 30 Days #60 tab 07/13/21 07/30/21 07/29/21 Rx release sucralfate 1 gram tablet 1 g PO AC&BEDTIME 30 Days #60 tab 07/13/21 07/30/21 07/29/21 Rx potassium chloride 20 mEq 20 meq PO DAILY #20 tab 07/28/21 07/30/21 07/30/21 Rx tablet,extended release clopidogrel 75 mg tablet (Plavix) 75 mg PO DAILY 07/30/21 07/30/21 07/30/21 History nitrofurantoin 100 mg PO BID 07/30/21 07/30/21 Unknown History monohydrate/macrocrystals 100 mg capsule omeprazole 40 mg capsule,delayed 40 mg PO DAILY 07/30/21 07/30/21 07/30/21 History release tizanidine 4 mg tablet 4 mg PO Q6H PRN 07/30/21 07/30/21 Unknown History triamterene 37.5 1 tab PO DAILY 0207/30/21 07/30/21 History mg-hydrochlorothiazide 25 mg tablet Allergies Allergy/AdvReac Type Severity Reaction Status Date / Time iodine Allergy Unknown Verified 07/28/21 12:05 Penicillins Allergy ALGY-Anaphy Verified 07/28/21 12:05 laxis PFSH Acute PFSH: Medical History Anemia Chronic kidney disease COPD (chronic obstructive pulmonary disease) Coronary artery disease Hypokalemia Orthostatic dizziness Postural orthostatic tachycardia syndrome Surgical History H/O esophagogastroduodenoscopy (07/30/21) Duodenitis H/O ventral hernia repair History of 3 sections History of appendectomy Status post colonoscopy (07/30/21) Diverticulosis Status post laparoscopic cholecystectomy (04/14/21) Status post right inguinal hernia repair Family History Father Stroke Denies family history of Diabetes CAD (coronary artery disease) Family history of premature coronary artery disease Social History Smoking and tobacco status: current some day smoker cigarettes Packs smoked per day: 1.5 Years cigarettes smoked: 57 Quit status (tobacco): not considering quitting Alcohol intake: never Lives independently: Yes Household members: spouse Marital status: Current occupational status: retired History of recent travel: No Current gender identity: Female Vitals/I&O/Wt Last Vital Signs Temp 97.8 F 07/30/21 21:45 Pulse 83 07/30/21 21:45 Resp 18 07/30/21 21:45 BP 118/58 07/30/21 21:45 Pulse Ox 96 07/30/21 21:45 07/30/21 07/30/21 07/30/21 06:59 14:59 22:59 Intake Total 0 / 0 Balance 0 / 0 Weight last 48 hrs Weight 40.37 kg Physical Exam Const: COMMON NORMALS: no acute distress and patient oriented x3 HENMT: COMMON NORMALS: normocephalic HEAD & SCALP: normocephalic Eye: COMMON NORMALS: Equal, round and reactive pupils present and EOMs intact bilaterally Neck/C-Spine: COMMON NORMALS: no JVD Lymph: LYMPHATIC: no lymphadenopathy noted Resp: COMMON NORMALS: normal respiratory effort, No retractions, No use of accessory muscles and clear to auscultation bilaterally AUSCULTATION: clear to auscultation bilaterally Cardio: COMMON NORMALS: no JVD, regular rate, regular rhythm, S1 normal heart sound present and S2 normal heart sound present RATE: regular rate RHYTHM: regular rhythm HEART SOUNDS: S1 normal heart sound present and S2 normal heart sound present GI: COMMON NORMALS: Normal to inspection, nondistended, normoactive bowel sounds present, Soft to palpation, non-tender, No hepatosplenomegaly present, no masses and no bruits PALPATION: Yes Soft to palpation and Yes No hepatosplenomegaly present Extremity: COMMON NORMALS: capillary refill normal, no clubbing, cyanosis or edema, no calf tenderness and no pedal edema Neuro: COMMON NORMALS: patient oriented x3 Psych: COMMON NORMALS: mental status grossly normal Data : 07/30/21 20:19 07/30/21 17:25 A&P Assessment and plan (1) Acute upper gastrointestinal bleeding: Status: Acute (2) Anemia: Status: Acute (3) Hypokalemia: Status: Acute (4) Syncope: Status: Acute Plan Upper GI bleed -Had a couple episodes of hematemesis in the emergency room, dark red blood, with clots -Currently blood pressure 100/50, no repeat episodes, sinus tachycardia, alert oriented x3 -Did take Plavix yesterday and today -Hemoglobin 6.2 -EGD today showed duodenitis, diverticulosis -INR within normal limits Plan -Admit to ICU -Protonix drip -Octreotide drip -Gentle IV fluids -Keep n.p.o. -Place NG tube due to high risk of aspiration -1 unit PRBC, hemoglobin every 4 hours -Possible EGD in the morning, will be checked with Dr. Kern in the morning depending on hemoglobin trend, clinical course -Full code -SCDs for DVT prophylaxis Syncope -Likely second upper GI bleed -History of syncope during last hospitalization, transthoracic echocardiogram within normal limits, thought to be secondary to POTS -Continue to monitor mentation closely -Telemetry monitoring CHRISTELLE, with CKD creatinine 1.9, likely secondary to GI bleed, continue monitor Hyponatremia, with history of hyponatremia, currently likely secondary vomiting Hypokalemia likely secondary to vomiting NSTEMI, serial troponins, serial EKGs, likely secondary to upper GI bleed COPD CAD, Plavix on hold POTS Attestations Medical Necessity Statement*: Patient requires hospitalization for upper GI bleed, syncope Coding Level of Care Code Acute Modeling Analyst for g Fwd Diagnoses Acute upper gastrointestinal bleeding K92.2 Anemia D64.9 Hypokalemia E87.6 Syncope R55
[2021-07-30] MEDS: octreotide 500 MCG in sodium chloride 0.9% (100 ml) 100 ML 10.1 MCG IV (23:27)
[2021-07-30] MEDS: sodium chloride 0.9% 1,000 ML 999 ML IV (23:28)
[2021-07-30 23:37] VITALS: BP 130/57; PULSE 69; RESP 18; TEMP 36.3; O2SAT 97
[2021-07-30 23:54] LABS: Troponin 5 6HR 20.65 ng/L (0-10)
[2021-07-30 23:55] VITALS: BP 138/64; PULSE 67; RESP 14; TEMP 36.4; O2SAT 97
[2021-07-30 23:55] LABS: Troponin 5 6HR Delta -1.35 ng/L (0-12)
[2021-07-31] VITALS (69 sets, daily range): BP systolic 99–156; BP diastolic 41–79; PULSE 62–99; RESP 11–28; TEMP 36.6–37.2; O2SAT 87–100
--- NOTE | 2021-07-31 02:30 | XRR_ITS ---
PROCEDURE INFORMATION: Exam: XR Chest Exam date and time: 07/31/2021 2:30 AM Age: 75 years old Clinical indication: Device placement; Ng tube; Patient HX: Check S/P ng placement; Additional info: Ng tube placement TECHNIQUE: Imaging protocol: XR of the chest. Views: 1 view. COMPARISON: CR (CHEST, ) 07/30/2021 5:48 PM FINDINGS: Tubes, catheters and devices: Enteric tube tip is over the proximal duodenum. Lungs: Unremarkable. No consolidation. Pleural spaces: Unremarkable. No pleural effusion. No pneumothorax. Heart/Mediastinum: Unremarkable. No cardiomegaly. Bones/joints: Unremarkable. Organs: Surgical clips in the gallbladder fossa consistent with cholecystectomy. XR/XR chest 1V portable [id number] IMPRESSION: Enteric tube tip is over the proximal duodenum.
--- NOTE | 2021-07-31 03:04 | PC.NURSE ---
Awaiting Xray confirmation
--- NOTE | 2021-07-31 03:07 | PC.NURSE ---
Small bowel movement, liquid, black/maroon.
[2021-07-31] MEDS: dextrose 5%-sod chloride 0.9% 1,000 ML 50 ML IV (03:17)
[2021-07-31] MEDS: pantoprazole 40 MG in sodium chloride 0.9% (plus) 100 ML 20 MG IV ×2 (03:17→09:27)
[2021-07-31 03:55] LABS: Basophils # 0.1 10^3/uL (0.0-0.1); Basophils % 0.6 %; Eosinophils % 0.2 %; Hemoglobin 9.4 g/dL (11.5-15.3); Lymphocytes # 1.2 10^3/uL (0.8-4.8); Lymphocytes % 14.4 %; Mean Corpuscular HGB Conc 33.6 g/dL (30.0-36.0); Mean Corpuscular Volume 95.2 fl (81-99); Mean Platelet Volume 9.1 fL (7.4-10.4); Monocytes # 0.6 10^3/uL (0.2-0.9); Monocytes % 6.7 %; Neutrophils # 6.59 10^3/uL (1.8-7.7); Neutrophils % 77.7 %; Nucleated Red Blood Cells % 0 %; Platelet Count 222 10^3/cmm (130-400); Red Blood Count 2.94 10^6/uL (4.1-5.3); Red Cell Distribution Width 14.8 % (12.1-15.1); White Blood Count 8.5 10^3/uL (4.0-10.0)
--- NOTE | 2021-07-31 04:07 | PC.NURSE ---
Pt does not wish to turn at this time because when she moves, the NG makes her gag and causes discomfort. Education regarding pressure ulcer prevention provided, reinforcement needed.
[2021-07-31 04:32] LABS: Alanine Aminotransferase < 5 U/L (0-33); Alkaline Phosphatase 86 IU/L (35-105); Anion Gap 14.8 (5-19); Aspartate Amino Transferase 13 U/L (0-32); Blood Urea Nitrogen 32 mg/dL (8-23); Calcium 6.8 mg/dL (8.5-10.5); Carbon Dioxide 20 mmol/L (22-29); Chloride 108 mmol/L (98-107); Globulin 1.4 g/dL (1.3-4.6); Glucose 143 mg/dL (65-115); Lactic Sepsis W/Reflex 1.4 mmol/L (0.5-2.2); Magnesium 2.1 mg/dL (1.7-2.3); Osmolality Calculated 297 mOsm/kg (285-295); Phosphorus 4.4 mg/dL (2.5-4.5); Potassium 3.8 mmol/L (3.5-5.1); Sodium 139 mmol/L (136-145); Total Bilirubin 0.5 mg/dL (0.15-1.2); Total Protein 4.4 g/dL (6.6-8.7)
[2021-07-31 04:36] LABS: INR 1.17 (0.8-1.2)
[2021-07-31 04:51] LABS: Estmated Average Glucose 143; Hemoglobin A1C 6.6 % (4.0-6.0)
--- NOTE | 2021-07-31 05:05 | PC.NURSE ---
Barrier cream applied to buttock and labia
--- NOTE | 2021-07-31 05:06 | PC.NURSE ---
Pt incontinent of a small amount of urine and stool. Stool remains maroon. NG drainage remains dark red.
--- NOTE | 2021-07-31 06:02 | PC.NURSE ---
Pt resting quietly in bed with eyes closed. Pt arouses easily, but falls back asleep quickly.
[2021-07-31] MEDS: midodrine 5 mg TABLET 10 MG PO (09:26)
[2021-07-31] MEDS: sucralfate 1 gm Tablet PO (09:26)
[2021-07-31] MEDS: octreotide 500 MCG in sodium chloride 0.9% (100 ml) 100 ML 10.1 MCG IV (09:26)
--- NOTE | 2021-07-31 10:25 | PC.NURSE ---
ROUNDING Dr. Lopez at bedside for rounding. MD orders to shut off protonix and octreotide drips, and discontinue D5NS fluids as well. New orders for NS at 50 mL/hour. PO midodrine discontinued. MD orders to clamp nasogatric tube and discontinue low intermittent suction. MD orders to get patient up to chair and out of bed. Start clear liquid diet.
[2021-07-31 10:36] LABS: Hematocrit 21.7 % (37.0-47.0); Hemoglobin 7.1 g/dL (11.5-15.3)
[2021-07-31] MEDS: pantoprazole 40 mg SDV IVP (11:12)
[2021-07-31] MEDS: sodium chloride 0.9% 1,000 ML 50 ML IV (11:12)
[2021-07-31] MEDS: sucralfate 1 gm/10 mL Oral Liq UDC PO ×3 (11:14→20:45)
--- NOTE | 2021-07-31 11:36 | PC.NURSE ---
UP TO CHAIR Patient up to chair with standby assistance. NS at 50mL/hour and albumin initiated.
[2021-07-31 12:44] LABS: Alanine Aminotransferase < 5 U/L (0-33); Albumin Level 3.1 g/dL (3.5-5.2); Alkaline Phosphatase 69 IU/L (35-105); Anion Gap 16.9 (5-19); Aspartate Amino Transferase 9 U/L (0-32); Blood Urea Nitrogen 29 mg/dL (8-23); Calcium 6.6 mg/dL (8.5-10.5); Carbon Dioxide 17 mmol/L (22-29); Chloride 108 mmol/L (98-107); Globulin 1.1 g/dL (1.3-4.6); Glucose 192 mg/dL (65-115); Osmolality Calculated 297 mOsm/kg (285-295); Potassium 3.9 mmol/L (3.5-5.1); Sodium 138 mmol/L (136-145); Total Bilirubin 0.2 mg/dL (0.15-1.2); Total Protein 4.2 g/dL (6.6-8.7)
--- NOTE | 2021-07-31 12:51 | PM.PN ---
Subjective Subjective: Admitted overnight. Today morning patient is on D5 half NS 50 cc/h, Protonix drip, octreotide drip. Continue to have bloody suction through NG tube. Last hemoglobin lead mechanical engineer 9.4 dosing though seems to be on error. Patient is awake alert. Denies any nausea, vomiting, dizziness, chest pain or palpitations. Vitals/I&O/Wt Last Vital Signs Temp 97.9 F 07/31/21 09:30 Pulse 73 07/31/21 09:30 Resp 14 07/31/21 09:30 BP 121/46 07/31/21 09:30 Pulse Ox 97 07/31/21 09:30 07/30/21 07/31/21 07/31/21 22:59 06:59 14:59 Intake Total 350 / 350 350 / 700 160.832 / 160.832 Output Total 51 / 51 Balance 350 / 350 299 / 649 160.832 / 160.832 Weight last 48 hrs Weight 42.502 kg Weight 40.37 kg Physical Exam Const: COMMON NORMALS: no acute distress and patient oriented x3 HENMT: COMMON NORMALS: normocephalic HEAD & SCALP: normocephalic Eye: COMMON NORMALS: Equal, round and reactive pupils present and EOMs intact bilaterally PUPIL: Yes Equal, round and reactive pupils present Neck/C-Spine: COMMON NORMALS: no JVD Lymph: LYMPHATIC: no lymphadenopathy noted Resp: COMMON NORMALS: normal respiratory effort, No retractions, No use of accessory muscles and clear to auscultation bilaterally AUSCULTATION: clear to auscultation bilaterally Cardio: COMMON NORMALS: no JVD, regular rate, regular rhythm, S1 normal heart sound present and S2 normal heart sound present RATE: regular rate RHYTHM: regular rhythm HEART SOUNDS: S1 normal heart sound present and S2 normal heart sound present GI: COMMON NORMALS: Normal to inspection, nondistended, normoactive bowel sounds present, Soft to palpation, non-tender, No hepatosplenomegaly present, no masses and no bruits PALPATION: Yes Soft to palpation and Yes No hepatosplenomegaly present Extremity: COMMON NORMALS: capillary refill normal, no clubbing, cyanosis or edema, no calf tenderness and no pedal edema Neuro: COMMON NORMALS: patient oriented x3 Psych: COMMON NORMALS: mental status grossly normal Data : 07/31/21 10:00 07/31/21 12:08 A&P Assessment and plan (1) Acute upper gastrointestinal bleeding: Status: Acute (2) Anemia: Status: Acute (3) Hypokalemia: Status: Acute (4) Syncope: Status: Acute Plan Upper GI bleed: Post endoscopy as an outpatient. NG tube. Keep clamped for now. Start on clear liquids diet. Hemoglobin and hematocrit every 6 hours. Will transfuse to keep hemoglobin over 8. Protonix 40 mg IV twice daily. Start on Carafate before meals and at bedtime. No history of liver dysfunction. LFTs within normal limits. INR within normal limit. Stop octreotide. If patient continues to have drop in hemoglobin or continues to have bloody drain from NG tube plan for repeat endoscopy versus OR. Syncope: Secondary to acute anemia from upper GI bleed. Off Levophed. Hold off on antihypertensives. Stop midodrine. If needed will transfuse blood or FFP. Switch fluid from D5 half NS to NS at 50 cc/h. Keep mean artery pressure over 60 to 62 mmHg. CHRISTELLE, with CKD: Baseline creatinine 1.3-1.7. Creatinine 1.9, likely secondary to GI bleed, continue monitor Medical reconciliation done for nephrotoxic drugs. Hyponatremia, with history of hyponatremia: Currently resolved. Hypokalemia likely secondary to vomiting: Resolved. NSTEMI, serial troponins, serial EKGs, likely secondary to upper GI bleed. No active chest pain. COPD: Not in exacerbation. CAD, Plavix on hold. Echocardiogram from June 2021 shows an EF of 74%, grade 1 diastolic dysfunction, mild TR. Type 2 diabetes mellitus: New diagnosis. A1c 6.6. Hold off on any insulin. Carb consistent clear liquid diet. POTS Full code. Protonix for PUD prophylaxis. SCDs for DVT prophylaxis. Clear liquid diet for now. Attestations Medical Necessity Statement*: Requires further hospitalization for management of acute anemia secondary to acute upper GI bleed Critical Care Time: The high probability of a clinically significant, sudden or life threatening deterioration of the patient's [GI, hematological, cardiac system(s) required my full and direct attention, intervention and personal management. The critical care time is as shown. This time is in addition to time spent performing any reported procedures but includes the following: [x] Data and vital sign review and interpretation [x] Patient assessment, examination and intervention [x] Documentation [x] Medication orders and management Critical Care Time (min): 60 Coding Level of Care Code Acute Folding Machine Operator for g Fwd Diagnoses Acute upper gastrointestinal bleeding K92.2 Anemia D64.9 Hypokalemia E87.6 Syncope R55
[2021-07-31] MEDS: sodium chloride 0.9% (100 ml) 100 ML (14:20)
[2021-07-31 18:11] LABS: Add Urine Microscopic? YES; Bilirubin Urine Neg (Negative); Blood Urine 3+ (Negative); Glucose Urine UA Norm (Normal); Ketones Urine Negative (Negative); Leukocyte Esterase Urine Negative (Negative); Nitrate Urine Negative (Negative); Protein Urine Neg (Negative); RBC Urine 0-4 /hpf (0-2); Specific Gravity, Urine 1.015 (1.005-1.030); Urine Appearance Hazy (CLEAR); Urine Color Yellow (Yellow); Urobilinogen Urine Norm (Negative); WBC Urine 15-25 /hpf (0-5); pH Urine 5 (5-7)
[2021-07-31 18:12] LABS: Add Urine Culture? Yes; Bacteria Urine 3+ /hpf; Squamous Epithelial Cell Urine 0-4 /hpf (0-5)
[2021-07-31 18:24] LABS: Hemoglobin 6.6 g/dL (11.5-15.3)
[2021-07-31 18:29] LABS: Hematocrit 20.2 % (37.0-47.0)
--- NOTE | 2021-07-31 18:43 | PC.NURSE ---
H&H Dr. Lopez notified of critical hematocrit of 20.2 at 1831. orders to infuse 2 more units PRBC stat. Next H&H ordered for 2225 to be drawn at 2100. RN to pass on in change of shift report. asked how much output from NG tube, but orders to clamp earlier in day. Dr. Lopez requested RN to call Dr. Kern and let him know as well. Dr. Kern gave orders to hook NG back to LIS, NPO starting now, and possible scope tomorrow depending on H&H trend throughout night.
[2021-07-31] MEDS: sodium chloride 0.9% (100 ml) 100 ML 50 ML (20:01)
[2021-07-31 21:48] LABS: Hematocrit 22.3 % (37.0-47.0); Hemoglobin 7.8 g/dL (11.5-15.3)
[2021-08-01] VITALS (50 sets, daily range): BP systolic 92–131; BP diastolic 41–91; PULSE 59–79; RESP 12–26; TEMP 36.6–37.1; O2SAT 90–100; BMI 18.3
[2021-08-01] MEDS: pantoprazole 40 mg SDV IVP ×3 (00:41→21:49)
[2021-08-01 04:42] LABS: Basophils % 0.5 %; Eosinophils # 0.2 10^3/uL (0.0-0.8); Eosinophils % 2.3 %; Hematocrit 29.9 % (37.0-47.0); Hemoglobin 10.1 g/dL (11.5-15.3); Lymphocytes # 1.4 10^3/uL (0.8-4.8); Lymphocytes % 17.9 %; Mean Corpuscular HGB Conc 33.8 g/dL (30.0-36.0); Mean Corpuscular Hemoglobin 31.1 pg (28.0-34.0); Mean Platelet Volume 9.6 fL (7.4-10.4); Monocytes # 0.4 10^3/uL (0.2-0.9); Monocytes % 5.6 %; Neutrophils # 5.81 10^3/uL (1.8-7.7); Neutrophils % 73.3 %; Nucleated Red Blood Cells % 0 %; Platelet Count 89 10^3/cmm (130-400); Red Blood Count 3.25 10^6/uL (4.1-5.3); White Blood Count 7.9 10^3/uL (4.0-10.0)
[2021-08-01 04:56] LABS: Alanine Aminotransferase < 5 U/L (0-33); Alkaline Phosphatase 42 IU/L (35-105); Anion Gap 11.5 (5-19); Aspartate Amino Transferase 8 U/L (0-32); Blood Urea Nitrogen 31 mg/dL (8-23); Calcium 7.8 mg/dL (8.5-10.5); Carbon Dioxide 19 mmol/L (22-29); Chloride 107 mmol/L (98-107); Globulin 1.1 g/dL (1.3-4.6); Glucose 95 mg/dL (65-115); Magnesium 1.8 mg/dL (1.7-2.3); Osmolality Calculated 284 mOsm/kg (285-295); Phosphorus 1.6 mg/dL (2.5-4.5); Potassium 3.5 mmol/L (3.5-5.1); Sodium 134 mmol/L (136-145); Total Bilirubin 0.6 mg/dL (0.15-1.2); Total Protein 5.1 g/dL (6.6-8.7)
[2021-08-01] MEDS: sodium chloride 0.9% 1,000 ML 50 ML IV (06:18)
[2021-08-01] MEDS: sucralfate 1 gm/10 mL Oral Liq UDC PO ×4 (06:18→20:16)
[2021-08-01] MEDS: acetaminophen 325 mg Tablet 650 MG PO ×2 (10:18→20:16)
[2021-08-01 10:55] LABS: Hematocrit 31.4 % (37.0-47.0); Hemoglobin 10.4 g/dL (11.5-15.3)
--- NOTE | 2021-08-01 11:53 | PM.CONSULT ---
Providers/Reason For Consult Consulting Physician/Specialty*: Dr. Gutierrez Reason for Consult*: GI bleed Attending Physician: Alden Lopez MD Primary Care Provider: Laith Patel History of Present Illness History of Present Illness Maile López is a 75 year old female who underwent EGD and colonoscopy on 07/30/2021. Colonoscopy showed moderate diverticulosis and EGD showed duodenitis and I had performed a biopsy of the antrum and duodenum. Patient subsequently presented to the ER that evening with hematemesis and bloody bowel movements. On initial presentation her hemoglobin was noted to be 6.6. CT abdomen pelvis did not show any significant acute pathology to explain the bleeding. An NG tube was placed and she was noted to have bloody NG output the next morning. She received 1 unit PRBCAnd while her initial hemoglobin is 9.4 the subsequent repeat hemoglobin was 7.1 and 6.6 and therefore she was transfused 2 more units. Her repeat hemoglobin this morning was 10.1 and 10.4. Her NG output is clear. She denies any abdominal pain, nausea or vomiting. Review of Systems Const: Denies: fever(s), chills, change in weight or fatigue Eyes: Denies: change in vision ENMT: Denies: odynophagia Card: Denies: chest pain Resp: Denies: dyspnea GI: Denies: abdominal pain, dysphagia or hematochezia : Denies: dysuria Skin/Breast: Denies: rash or non-healing lesions Neuro: Denies: seizure-like activity Misael/Lymph: Denies: easy bruising Medications/Allergies Home Medications Medication Instructions Recorded Confirmed Last Taken Type amitriptyline 25 mg tablet 25 mg PO BEDTIME 09/09/19 07/30/21 07/29/21 History nitroglycerin 0.4 mg sublingual 0.4 mg SUBLINGUAL PRN PRN 09/09/19 07/30/21 Unknown History tablet primidone 50 mg tablet 50 mg PO BID tab 07/16/20 07/30/21 07/30/21 History simvastatin 20 mg tablet 20 mg PO DAILY 01/04/21 07/30/21 07/29/21 History digoxin 125 mcg (0.125 mg) tablet 125 mcg PO DAILY 07/09/21 07/30/21 07/30/21 History diltiazem HCl 60 mg 60 mg PO BID 07/09/21 07/30/21 07/30/21 History capsule,extended release 12 hr ferrous sulfate 325 mg (65 mg 325 mg PO BID 07/09/21 07/30/21 07/30/21 History iron) tablet (FeroSul) isosorbide dinitrate 5 mg tablet 2.5 mg PO BID 07/09/21 07/30/21 07/30/21 History metoprolol succinate 25 mg 12.5 mg PO DAILY 07/09/21 07/30/21 07/30/21 History tablet,extended release 24 hr pantoprazole 40 mg tablet,delayed 40 mg PO BID 30 Days #60 tab 07/13/21 07/30/21 07/29/21 Rx release sucralfate 1 gram tablet 1 g PO AC&BEDTIME 30 Days #60 tab 07/13/21 07/30/21 07/29/21 Rx potassium chloride 20 mEq 20 meq PO DAILY #20 tab 07/28/21 07/30/21 07/30/21 Rx tablet,extended release clopidogrel 75 mg tablet (Plavix) 75 mg PO DAILY 07/30/21 07/30/21 07/30/21 History nitrofurantoin 100 mg PO BID 07/30/21 07/30/21 Unknown History monohydrate/macrocrystals 100 mg capsule omeprazole 40 mg capsule,delayed 40 mg PO DAILY 07/30/21 07/30/21 07/30/21 History release tizanidine 4 mg tablet 4 mg PO Q6H PRN 07/30/21 07/30/21 Unknown History triamterene 37.5 1 tab PO DAILY 07/30/21 07/30/21 07/30/21 History mg-hydrochlorothiazide 25 mg tablet Allergies Allergy/AdvReac Type Severity Reaction Status Date / Time iodine Allergy Unknown Verified 07/28/21 12:05 Penicillins Allergy ALGY-Anaphy Verified 07/28/21 12:05 laxis Current Medications Generic Name Dose Route Start Last Admin Trade Name Freq PRN Reason Stop Dose Admin Acetaminophen 650 mg 07/31/21 01:41 08/01/21 10:18 Acetaminophen 325 Mg Tablet PO 650 mg Q6H PRN Administration Mild/Mod Pain Or Temp >/= 101 Sodium Chloride 1,000 mls @ 50 mls/hr 07/31/21 10:30 08/01/21 06:18 Sodium Chloride 0.9% IV 50 mls/hr .Q20H DARWIN Administration Albumin Human 25 gm in 100 mls @ 60 mls/hr 07/31/21 10:30 08/01/21 10:19 Albumin IV 200 mls/hr Q8H DARWIN Administration Pantoprazole Sodium 40 mg 07/31/21 10:30 08/01/21 10:19 Pantoprazole 40 Mg Sdv IVP 40 mg Q12H DARWIN Administration Sucralfate 1 gm 07/31/21 11:00 08/01/21 10:29 Sucralfate 1 Gm/10 Ml Oral Liq Udc PO 1 gm AC&BEDTIME DARWIN Administration PFSH Acute PFSH: Medical History Anemia Chronic kidney disease COPD (chronic obstructive pulmonary disease) Coronary artery disease Hypokalemia Orthostatic dizziness Postural orthostatic tachycardia syndrome Surgical History H/O esophagogastroduodenoscopy (07/30/21) Duodenitis H/O ventral hernia repair History of 3 sections History of appendectomy Status post colonoscopy (07/30/21) Diverticulosis Status post laparoscopic cholecystectomy (04/14/21) Status post right inguinal hernia repair Family History Father Stroke Denies family history of Diabetes CAD (coronary artery disease) Family history of premature coronary artery disease Social History Smoking and tobacco status: current some day smoker cigarettes Packs smoked per day: 1.5 Years cigarettes smoked: 57 Quit status (tobacco): not considering quitting Alcohol intake: never Lives independently: Yes Household members: spouse Marital status: Current occupational status: retired History of recent travel: No Current gender identity: Female Vitals/I&O/Wt Last Vital Signs Temp 98.2 F 07/31/21 23:33 Pulse 64 08/01/21 09:30 Resp 16 08/01/21 09:30 BP 114/58 08/01/21 09:30 Pulse Ox 91 08/01/21 09:30 07/31/21 08/01/21 08/01/21 22:59 06:59 14:59 Intake Total 1280 / 4545.165 2405 / 4545.165 Output Total 600 / 1300 700 / 1300 Balance 680 / 3245.165 1705 / 3245.165 Weight last 48 hrs Weight 93 lb 11.2 oz Weight 89 lb Physical Exam Narrative: HEENT: Normocephalic Eye: Sclera /conjunctiva normal Abdomen: Soft to palpation, nontender, nondistended Neurological: Oriented to place person and time Skin: Intact, no lesions appreciated on gross exam Data : 08/01/21 10:40 08/01/21 04:25 Other Labs: Hemoglobin trend 08/01/21 10:40 10.4?L 08/01/21 04:25 10.1?L 07/31/21 21:42 7.8?L 07/31/21 18:00 6.6?L ? 07/31/21 10:00 7.1?L 07/31/21 03:00 9.4?L?? 07/30/21 20:19 6.2?L* 07/30/21 17:25 6.6?L A&P Assessment and plan (1) Acute upper gastrointestinal bleedin-year-old female status post EGD with biopsy of the antrum and duodenum who presented with upper GI bleed likely from the biopsy site. Patient received 3 units PRBC in total over the last 36 hours and hemoglobin is up to 10.1. No evidence of active GI bleed. Patient is hemodynamically stable. DC NG tube Start clear liquid diet, if tolerating advance to full liquid diet this evening Recheck hemoglobin this evening Hold Plavix for 1 week Continue Protonix 40 twice daily and Carafate Status: Acute Coding Level of Care Code Acute Night Filler for [facility] Fwd Diagnoses Acute upper gastrointestinal bleeding K92.2
[2021-08-01 15:38] LABS: Basophils # 0.1 10^3/uL (0.0-0.1); Basophils % 0.5 %; Eosinophils # 0.2 10^3/uL (0.0-0.8); Eosinophils % 1.8 %; Hematocrit 31.5 % (37.0-47.0); Lymphocytes % 18.8 %; Mean Corpuscular HGB Conc 31.7 g/dL (30.0-36.0); Mean Corpuscular Hemoglobin 31.4 pg (28.0-34.0); Mean Corpuscular Volume 99.1 fl (81-99); Mean Platelet Volume 10.2 fL (7.4-10.4); Monocytes # 0.6 10^3/uL (0.2-0.9); Monocytes % 5.7 %; Neutrophils # 7.59 10^3/uL (1.8-7.7); Neutrophils % 72.9 %; Nucleated Red Blood Cells % 0 %; Platelet Count 103 10^3/cmm (130-400); Red Blood Count 3.18 10^6/uL (4.1-5.3); Red Cell Distribution Width 15.8 % (12.1-15.1); White Blood Count 10.4 10^3/uL (4.0-10.0)
--- NOTE | 2021-08-01 16:56 | P.PN_ITS ---
Subjective Subjective: Overall patient received 4 units of blood transfusion. Overnight no acute events. No further melena or hematemesis. NG tube has remained clamped. Patient denies any nausea or vomiting. Hemoglobin stable. During the day NG tube was removed patient did have 1 episode of bloody bowel movement after which hemoglobin was checked and was stable. Most likely bloody bowel movement from retained blood from before. Patient denies any nausea vomiting, headache. Doing well with clear liquid diet. Vitals/I&O/Wt Last Vital Signs Temp 98 F 08/01/21 11:31 Pulse 65 08/01/21 16:00 Resp 18 08/01/21 16:00 BP 112/59 08/01/21 16:00 Pulse Ox 100 08/01/21 16:00 08/01/21 08/01/21 08/01/21 06:59 14:59 22:59 Intake Total 2405 / 4545.165 100 / 100 Output Total 700 / 1300 Balance 1705 / 3245.165 100 / 100 Weight last 48 hrs Weight 42.502 kg Weight 42.502 kg Weight 40.37 kg Physical Exam Const: COMMON NORMALS: no acute distress and patient oriented x3 HENMT: COMMON NORMALS: normocephalic HEAD & SCALP: normocephalic Eye: COMMON NORMALS: Equal, round and reactive pupils present and EOMs intact bilaterally PUPIL: Yes Equal, round and reactive pupils present Neck/C-Spine: COMMON NORMALS: no JVD Lymph: LYMPHATIC: no lymphadenopathy noted Resp: COMMON NORMALS: normal respiratory effort, No retractions, No use of accessory muscles and clear to auscultation bilaterally AUSCULTATION: clear to auscultation bilaterally Cardio: COMMON NORMALS: no JVD, regular rate, regular rhythm, S1 normal heart sound present and S2 normal heart sound present RATE: regular rate RHYTHM: regular rhythm HEART SOUNDS: S1 normal heart sound present and S2 normal heart sound present GI: COMMON NORMALS: Normal to inspection, nondistended, normoactive bowel sounds present, Soft to palpation, non-tender, No hepatosplenomegaly present, no masses and no bruits PALPATION: Yes Soft to palpation and Yes No hepatosplenomegaly present Extremity: COMMON NORMALS: capillary refill normal, no clubbing, cyanosis or edema, no calf tenderness and no pedal edema Neuro: COMMON NORMALS: patient oriented x3 Psych: COMMON NORMALS: mental status grossly normal Data : 08/01/21 15:26 08/01/21 04:25 A&P Assessment and plan (1) Acute upper gastrointestinal bleeding: Status: Acute (2) Anemia: Status: Acute (3) Hypokalemia: Status: Acute (4) Syncope: Status: Acute Plan Upper GI bleed: Post endoscopy as an outpatient. Remove NG tube. Continue check hemoglobin hematocrit Every 6 hour. Protonix 40 mg IV twice daily. Carafate before meals and at bedtime. Advance diet to full liquid diet. Thrombocytopenia: No past history. Can be secondary to Protonix but unfortunately patient needs Protonix currently because of upper GI bleeding. We will continue to monitor. Syncope:Hemodynamically stable. Secondary to acute anemia from upper GI bleed. Off Levophed. Hold off on antihypertensives. Continue normal saline at 50 cc/h. Keep mean arterial pressure over 62. CHRISTELLE, with CKD: Baseline creatinine 1.3-1.7. Creatinine back to baseline. Likely secondary to GI bleed, continue monitor Medical reconciliation done for nephrotoxic drugs. Hyponatremia, with history of hyponatremia: Currently resolved. Hypokalemia likely secondary to vomiting: Resolved. NSTEMI, serial troponins, serial EKGs, likely secondary to upper GI bleed. No active chest pain. COPD: Not in exacerbation. CAD, Plavix on hold. Echocardiogram from June 2021 shows an EF of 74%, grade 1 diastolic dysfunction, mild TR. Type 2 diabetes mellitus: New diagnosis. A1c 6.6. Hold off on any insulin. Carb consistent clear liquid diet. POTS Full code. Protonix for PUD prophylaxis. SCDs for DVT prophylaxis. Clear liquid diet for now. Plan for day: Hemoglobin hematocrit every 6 hours. Remove NG tube. Continue with Protonix. Advance to full liquid diet. Monitor hemodynamics and hemoglobin. Attestations Medical Necessity Statement*: Requires further hospitalization for management of upper GI bleed post endoscopy. Time Spent in Patient Care: Greater than 35 minutes Coding Level of Care Code Acute Lawn And Garden Technician for [facility] Fwd Diagnoses Acute upper gastrointestinal bleeding K92.2 Anemia D64.9 Hypokalemia E87.6 Syncope R55
--- NOTE | 2021-08-01 17:11 | NUR.SHIFT ---
Shift Note Frequent safety and comfort rounds continue. Orders and nursing care completed as indicated. Patient monitored for response bleeding , and nausea Education provided includes up with assist Patient understand had large bm reddish black color , lab work repeated at this time Will continue to monitor.
[2021-08-01 22:55] LABS: Hematocrit 26.6 % (37.0-47.0); Hemoglobin 9.2 g/dL (11.5-15.3)
[2021-08-02] VITALS (15 sets, daily range): BP systolic 98–128; BP diastolic 44–57; PULSE 58–67; RESP 14–22; TEMP 37–37.1; O2SAT 91–94
[2021-08-02 05:06] LABS: Basophils % 0.4 %; Eosinophils # 0.3 10^3/uL (0.0-0.8); Eosinophils % 3.7 %; Hematocrit 27.7 % (37.0-47.0); Hemoglobin 9.4 g/dL (11.5-15.3); Lymphocytes # 1.8 10^3/uL (0.8-4.8); Lymphocytes % 25.9 %; Mean Corpuscular HGB Conc 33.9 g/dL (30.0-36.0); Mean Corpuscular Hemoglobin 31.1 pg (28.0-34.0); Mean Corpuscular Volume 91.7 fl (81-99); Mean Platelet Volume 9.6 fL (7.4-10.4); Monocytes # 0.5 10^3/uL (0.2-0.9); Monocytes % 7.2 %; Neutrophils # 4.36 10^3/uL (1.8-7.7); Neutrophils % 62.5 %; Nucleated Red Blood Cells % 0 %; Platelet Count 113 10^3/cmm (130-400); Red Blood Count 3.02 10^6/uL (4.1-5.3); Red Cell Distribution Width 15.5 % (12.1-15.1)
[2021-08-02] MEDS: sodium chloride 0.9% 1,000 ML 50 ML IV (05:30)
[2021-08-02 05:35] LABS: Alanine Aminotransferase < 5 U/L (0-33); Albumin Level 3.4 g/dL (3.5-5.2); Alkaline Phosphatase 45 IU/L (35-105); Aspartate Amino Transferase 7 U/L (0-32); Blood Urea Nitrogen 24 mg/dL (8-23); Calcium 7.2 mg/dL (8.5-10.5); Carbon Dioxide 19 mmol/L (22-29); Chloride 108 mmol/L (98-107); Glucose 78 mg/dL (65-115); Magnesium 1.8 mg/dL (1.7-2.3); Osmolality Calculated 285 mOsm/kg (285-295); Phosphorus 1.3 mg/dL (2.5-4.5); Sodium 136 mmol/L (136-145); Total Bilirubin 0.4 mg/dL (0.15-1.2); Total Protein 4.4 g/dL (6.6-8.7)
[2021-08-02] MEDS: sucralfate 1 gm/10 mL Oral Liq UDC PO (05:59)
--- NOTE | 2021-08-02 08:23 | PM.DCS ---
Discharge Providers Date of Admission: 07/30/21 21:51 Date of Discharge: August 02, 2021 Attending Provider at Admission: Benedicto Armijo MD Attending Provider at Discharge: Reji Wallace Primary Care Provider: Laith Patel Diagnoses at Discharge Discharge Diagnosis (1) Acute upper gastrointestinal bleeding: Status: Acute (2) Anemia: Status: Acute (3) Hypokalemia: Status: Acute (4) Syncope: Status: Acute Reason for Visit Reason for Visit: AMS Hospital Course Hospital Course Pleasant 75-year-old lady was admitted on 07/30 after return to the hospital due to persistent melanotic stools malaise for which he underwent EGD and colonoscopy earlier that day, returning to the hospital with hematemesis with episode of syncope. Colonoscopy showed moderate diverticulosis and EGD showed duodenitis and an antral and duodenal biopsies were performed. On presentation noted to have acute on chronic anemia, hemoglobin down to 6.2. Plavix were held. She received PRBC transfusion, total 5 units over the duration of hospital stay. She was continued on PPI, sucralfate. Started on octreotide drip. Received IV fluid resuscitation. NG tube was maintained with risk of aspiration. Hemoglobin eventually stabilized. Without recurrence of hematemesis, NG tube was removed. She tolerated clear liquids, currently on full liquids, hemoglobin since yesterday 10-9.2-9.4. On discharge she is asked to hold Plavix and additional week and follow-up with surgery in addition to primary provider week after next. Physical Exam Const: COMMON NORMALS: no acute distress and patient oriented x3 HENMT: COMMON NORMALS: oropharynx normal Neck/C-Spine: COMMON NORMALS: no JVD Resp: COMMON NORMALS: normal respiratory effort and clear to auscultation bilaterally AUSCULTATION: clear to auscultation bilaterally Cardio: COMMON NORMALS: no JVD, regular rhythm, S1 normal heart sound present, S2 normal heart sound present and No murmurs present (Cardio) RHYTHM: regular rhythm HEART SOUNDS: S1 normal heart sound present and S2 normal heart sound present GI: COMMON NORMALS: Normal to inspection, nondistended, normoactive bowel sounds present, Soft to palpation and non-tender PALPATION: Yes Soft to palpation Extremity: COMMON NORMALS: no joint enlargement and no pedal edema Neuro: COMMON NORMALS: patient oriented x3 and moves all extremities Skin: COMMON NORMALS: no rashes or lesions noted GENERAL SKIN EXAM: no rashes or lesions noted Discharge Data Studies Completed and Pending Completed Studies During Hospitalization Category Date Time Status CT abdomen pelvis wo con [id number] Stat Cat Scan 07/30/21 18:[address] head wo con* [id number] Stat Cat Scan 07/30/21 17:19 Completed XR chest 1V portable [id number] Routine Exams 07/31/21 02:30 Completed XR chest 1V portable [id number] Stat Exams 07/30/21 17:09 Completed Pending at discharge Category Date Time Status Hemoglobin and Hematocrit Q6H Lab 08/02/21 10:25 Ordered Hemoglobin and Hematocrit Q6H Lab 08/02/21 16:25 Ordered Urine Culture Stat Lab 07/31/21 16:58 Received Radiology Impressions Head CT 07/30/21 17:19 IMPRESSION: No acute intracranial abnormality. Abdomen/Pelvis CT 07/30/21 18:35 IMPRESSION: 1. Mural thickening of the colon with air-fluid levels throughout. Findings are suggestive of nonspecific colitis versus other diarrheal illness. 2. Air noted in the urinary bladder, likely secondary to recent instrumentation. 3. No acute abnormality demonstrated of the solid organs. Chest X-Ray 07/31/21 02:30 IMPRESSION: Enteric tube tip is over the proximal duodenum. Laboratory Results WBC 7.0 10^3/uL (4.0-10.0) 08/02/21 04:58 RBC 3.02 10^6/uL (4.1-5.3) L 08/02/21 04:58 Hgb 9.4 g/dL (11.5-15.3) L 08/02/21 04:58 Hct 27.7 % (37.0-47.0) L 08/02/21 04:58 MCV 91.7 fl (81-99) D 08/02/21 04:58 MCH 31.1 pg (28.0-34.0) 08/02/21 04:58 MCHC 33.9 g/dL (30.0-36.0) D 08/02/21 04:58 RDW 15.5 % (12.1-15.1) H 08/02/21 04:58 Plt Count 113 10^3/cmm (130-400) L 08/02/21 04:58 MPV 9.6 fL (7.4-10.4) 08/02/21 04:58 Neut % (Auto) 62.5 % 08/02/21 04:58 Lymph % (Auto) 25.9 % 08/02/21 04:58 Rhea % (Auto) 7.2 % 08/02/21 04:58 Eos % (Auto) 3.7 % 08/02/21 04:58 Baso % (Auto) 0.4 % 08/02/21 04:58 Neut # (Auto) 4.36 10^3/uL (1.8-7.7) 08/02/21 04:58 Lymph # (Auto) 1.8 10^3/uL (0.8-4.8) 08/02/21 04:58 Rhea # (Auto) 0.5 10^3/uL (0.2-0.9) 08/02/21 04:58 Eos # (Auto) 0.3 10^3/uL (0.0-0.8) 08/02/21 04:58 Baso # (Auto) 0.0 10^3/uL (0.0-0.1) 08/02/21 04:58 Nucleated RBC % (auto) 0 % 08/02/21 04:58 Nucleated RBCs # 0.0 /100WBC 08/02/21 04:58 PT 15.20 SECONDS (12.1-14.9) H 07/31/21 03:00 INR 1.17 (0.8-1.2) 07/31/21 03:00 APTT 19.6 SECONDS (23.9-36.7) L 07/30/21 18:30 Sodium 136 mmol/L (136-145) 08/02/21 04:58 Potassium 3.0 mmol/L (3.5-5.1) L 08/02/21 04:58 Chloride 108 mmol/L (98-107) H 08/02/21 04:58 Carbon Dioxide 19 mmol/L (22-29) L 08/02/21 04:58 Anion Gap 12.0 (5-19) 08/02/21 04:58 BUN 24 mg/dL (8-23) H 08/02/21 04:58 Creatinine 1.3 mg/dL (0.5-0.9) H 08/02/21 04:58 GFR Calculation Not Reportable 02/14/22 04:58 Glucose 78 mg/dL (65-115) 08/02/21 04:58 Estimat Average Glucose 143 07/31/21 03:00 Hemoglobin A1c 6.6 % (4.0-6.0) H 07/31/21 03:00 Calculated Osmolality 285 mOsm/kg (285-295) 08/02/21 04:58 Lactic Acid 1.4 mmol/L (0.5-2.2) 07/31/21 03:00 Calcium 7.2 mg/dL (8.5-10.5) L 08/02/21 04:58 Phosphorus 1.3 mg/dL (2.5-4.5) L 08/02/21 04:58 Magnesium 1.8 mg/dL (1.7-2.3) 08/02/21 04:58 Total Bilirubin 0.4 mg/dL (0.15-1.2) 08/02/21 04:58 AST 7 U/L (0-32) 08/02/21 04:58 ALT < 5 U/L (0-33) 08/02/21 04:58 Alkaline Phosphatase 45 IU/L (35-105) 08/02/21 04:58 Troponin T Baseline 22 ng/L (0-10) H 07/30/21 17:25 Troponin T 120 Minute 22.40 ng/L (0-10) H 07/30/21 19:30 Delta Troponin T 0.40 ABS# (0-10) 07/30/21 19:30 Troponin T Hi Sens 6Hr 20.65 ng/L (0-10) H 07/30/21 23:19 Troponin T Hi Sens 6Hr Delta -1.35 ng/L (0-12) L 07/30/21 23:19 Total Protein 4.4 g/dL (6.6-8.7) L 08/02/21 04:58 Albumin 3.4 g/dL (3.5-5.2) L 08/02/21 04:58 Globulin 1.0 g/dL (1.3-4.6) L 08/02/21 04:58 Urine Color Yellow (Yellow) 07/31/21 16:58 Urine Appearance Hazy (CLEAR) A 07/31/21 16:58 Urine pH 5 (5-7) 07/31/21 16:58 Ur Specific [place] 1.015 (1.005-1.030) 07/31/21 16:58 Urine Protein Neg (Negative) 07/31/21 16:58 Urine Glucose (UA) Norm (Normal) 07/31/21 16:58 Urine Ketones Negative (Negative) 07/31/21 16:58 Urine Blood 3+ (Negative) H 07/31/21 16:58 Urine Nitrate Negative (Negative) 07/31/21 16:58 Urine Bilirubin Neg (Negative) 07/31/21 16:58 Urine Urobilinogen Norm mg/dL (Negative) 07/31/21 16:58 Ur Leukocyte Esterase Negative (Negative) 07/31/21 16:58 Urine RBC 0-4 /hpf (0-2) H 07/31/21 16:58 Urine WBC 15-25 /hpf (0-5) H 07/31/21 16:58 Ur Squamous Epith Cells 0-4 /hpf (0-5) H 07/31/21 16:58 Amorphous Sediment Not Reportable 07/31/21 16:58 Urine Bacteria 3+ /hpf (NONE) H 07/31/21 16:58 Digoxin 1.3 ng/mL (0.6-1.2) H 07/30/21 17:25 Blood Type A Positive 07/30/21 19:30 Rho(D) Type Positive 07/30/21 19:30 Antibody Screen Negative 07/30/21 19:30 Crossmatch See Detail 07/30/21 19:30 Vitals Last Vital Signs Temp 98.6 F 08/02/21 03:00 Pulse 60 08/02/21 06:00 Resp 16 08/02/21 05:30 BP 107/50 08/02/21 05:30 Pulse Ox 93 08/02/21 05:30 Discharge Plan Discharge Patient Disposition: Home Condition: Stable Prescriptions: New Phospha 250 Neutral 250 mg tablet 1 tab PO BID Qty: 4 0RF Continued simvastatin 20 mg tablet 20 mg PO DAILY 0RF primidone 50 mg tablet 50 mg PO BID 0RF amitriptyline 25 mg tablet 25 mg PO BEDTIME 0RF nitroglycerin 0.4 mg tablet, sublingual 0.4 mg sublingual PRN PRN (Reason: Chest Pain) 0RF ferrous sulfate [FeroSul] 325 mg (65 mg iron) tablet 325 mg PO BID 0RF digoxin 125 mcg (0.125 mg) tablet 125 mcg PO DAILY 0RF diltiazem HCl 60 mg capsule,extended release 12 hr 60 mg PO BID 0RF Hold Instructions: Resume on 07/20/21. hold until follow up with cardiology metoprolol succinate 25 mg tablet extended release 24 hr 12.5 mg PO DAILY 0RF isosorbide dinitrate 5 mg tablet 2.5 mg PO BID 0RF Hold Instructions: Resume on 07/20/21. hold until follow up with cardiology sucralfate 1 gram Tablet 1 g PO AC&BEDTIME 30 Days Qty: 60 0RF pantoprazole 40 mg Tablet,Delayed Release (Dr/Ec) 40 mg PO BID 30 Days Qty: 60 0RF tizanidine 4 mg tablet 4 mg PO Q6H PRN (Reason: Spasms) 0RF omeprazole 40 mg Capsule,Delayed Release(Dr/Ec) 40 mg PO DAILY 0RF triamterene-hydrochlorothiazid 37.5-25 mg Tablet 1 tab PO DAILY 0RF nitrofurantoin monohyd/m-cryst 100 mg capsule 100 mg PO BID 0RF potassium chloride 20 mEq tablet extended release 20 meq PO DAILY Qty: 20 0RF Held Plavix 75 mg Tablet 75 mg PO DAILY 0RF Hold Instructions: Resume on 08/10/21. Discharge Orders: Discharge Order (Routine); Ordered 08/02/21 Ordered By: Reji Wallace Referrals: Elie Kern MD [Physician] - 08/16/21 Laith Patel DO [Primary Care Provider] - 4-7 days Discharge Diet: Advance as tolerated and Full LIquid Discharge Activity: Increase activity as tolerated Patient Instructions: Gastrointestinal Bleeding (GEN), Potassium Content of Foods List (GEN), Hypophosphatemia (GEN) Activity Restrictions/Additional Instructions: Please have your primary doctor recheck your blood count at next appointment. Please hold Plavix for additional 7 days. Follow-up with surgery in office a week after next. Continue pantoprazole and sucralfate. Please have your primary doctor also recheck your potassium level due to low potassium. Continue potassium supplementation at home. Please have your primary doctor also recheck your phosphorus due to low phosphorus level. Include dairy in your diet. Discharge Attestations Time Spent in Discharge Care*: greater than 30 min Quality Metrics Clinical Quality Measures [ No reported AMI, CVA or VTE this stay] Coding Level of Care Code Acute Chg FW DC note Diagnoses Acute upper gastrointestinal bleeding K92.2 Anemia D64.9 Hypokalemia E87.6 Syncope R55
--- NOTE | 2021-08-02 10:10 | PC.CHAP ---
Pastoral Care Encounter/Spiritual Assessment Type of Contact [] Declined machine grinder visit [] Patient/Family/Request visit [] Outpatient visit [] Follow-up visit [] Physician referral [] Code/Alert [x] Routine visit [] Staff referral [] Actively dying [] Patient sleeping [] Family support [] [] Out of room [] Palliative care [] [] Receiving care in room [] Pre-surgical visit [] Trauma [] Long length of stay [x] ICU visit [] Other: Relational/Emotional Strength [] Patient feels connected with others/family/visitors/staff [] Distress [] Loneliness/isolation [] Abandonment Spirituality of Patient [] Person of Lizeth [] Attends Tenriism of their Lizeth [] Believes in Prayer [] Reads Bible or Mandaeism materials [] There are Spiritual issues to be addressed Serging Machine Operator Interventions [x] Prayer [x] Active listening [x] Non-anxious presence [x] Spiritual/emotional support [] Crisis/trauma care [] Spiritual counseling [] Bereavement support [] Provided bereavement packet [] Provided Bible/devotional materials [] Provided toy/stuffed animal, coloring book to patient or family member [] Provided Communion [] Anointing/[place] [] Salvation [x] Completed spiritual assessment [] Other: Impact on Illness or Injury [] Angry [] Fearful [] Anxious [] Often cries [] Exhaustion [] Unable to work [] Unable to attend anabaptist [] Unable to walk/stand [] Unable to read [] Unable to drive [] Unable to eat/drink [] Unable to sleep [] Unable to be with family [] Patient intubated [] Other: Summary patient going home today..... Time spent with patient 5 min
--- NOTE | 2021-08-02 10:16 | PM.PN ---
Subjective Subjective: Patient denies any abdominal pain, nausea, vomiting or hematemesis, had some black stools Vitals/I&O/Wt Last Vital Signs Temp 98.6 F 08/02/21 08:00 Pulse 60 08/02/21 08:00 Resp 16 08/02/21 08:00 BP 107/50 08/02/21 08:00 Pulse Ox 93 08/02/21 08:00 08/01/21 08/02/21 08/02/21 22:59 06:59 14:59 Intake Total 1200 / 1650 260 / 260 Output Total 700 / 1150 450 / 1150 Balance -700 / 500 750 / 500 260 / 260 Weight last 48 hrs Weight 93 lb Weight 93 lb 11.2 oz Physical Exam Narrative: Abdomen: Soft, nontender, nondistended Data : 08/02/21 04:58 08/02/21 04:58 A&P Assessment and plan (1) Acute upper gastrointestinal bleedin-year-old female with hematemesis status post EGD with biopsies and colonoscopy requiring 3 units PRBC. Patient is hemodynamically stable, her hemoglobin is remained stable for over 24 hours now DC home Hold Plavix for 1 week Follow-up 1 week with recheck labs DC home on Protonix and Carafate Status: Acute Attestations Medical Necessity Statement*: As per primary Coding Level of Care Code Acute Net Developer Architect for [facility] Diagnoses Acute upper gastrointestinal bleeding K92.2
--- NOTE | 2021-08-02 10:20 | PC.SOCIAL ---
IMM update IMM updated with patient. Verbalized an understanding. Copy Pg 2 provided. Initialled, dated, timed, and placed in chart.
== END 2021-08-02 10:40 | disposition home or self-care (01) | DRG 920 ==
LOC: ER 22:05 → ICU 07-31 01:11
PROVIDERS: Family Medicine; Student in an Organized Health Care Education/Training Program; Admitting Provider Family Medicine; Emergency Provider Emergency Medicine; PCP Family Medicine; Visit Provider Internal Medicine
DX: K91.840 Postprocedural hemorrhage of a digestive system organ or structure following a digestive system procedure (principal); D62 Acute posthemorrhagic anemia; N17.9 Acute kidney failure, unspecified; E87.1 Hypo-osmolality and hyponatremia; K92.2 Gastrointestinal hemorrhage, unspecified; K29.80 Duodenitis without bleeding; K57.90 Diverticulosis of intestine, part unspecified, without perforation or abscess without bleeding; N18.9 Chronic kidney disease, unspecified; J44.9 Chronic obstructive pulmonary disease, unspecified; I25.10 Atherosclerotic heart disease of native coronary artery without angina pectoris; Z86.73 Personal history of transient ischemic attack (TIA), and cerebral infarction without residual deficits; D63.1 Anemia in chronic kidney disease; E86.0 Dehydration; R55 Syncope and collapse; Z79.02 Long term (current) use of antithrombotics/antiplatelets; F17.210 Nicotine dependence, cigarettes, uncomplicated; I49.8 Other specified cardiac arrhythmias
CPT/HCPCS: 36415; 36430; 43239; 45378; 70450; 71045; 74176; 80053; 80162; 81001; 83036; 83605; 83735; 84100; 84484; 85014; 85018; 85025; 85610; 85730; 86850; 86900; 86920; 87077; 87086; 87186; 88305; 93005; 94664; 96360; 96361; 96374; 96375; 99283; 99285; C9113; J2354; J2405; J2704; J7030; J7040; P9016; P9047

== ENCOUNTER 2021-08-09 08:56 | Outpatient (CLI) | payer MEDICARE, MEDICAID, SELFPAY ==
[2021-08-09 09:50] LABS: Basophils # 0.1 10^3/uL (0.0-0.1); Basophils % 0.7 %; Eosinophils # 0.1 10^3/uL (0.0-0.8); Eosinophils % 1.6 %; Hematocrit 39.3 % (37.0-47.0); Hemoglobin 12.7 g/dL (11.5-15.3); Lymphocytes # 1.7 10^3/uL (0.8-4.8); Lymphocytes % 19.9 %; Mean Corpuscular HGB Conc 32.3 g/dL (30.0-36.0); Mean Corpuscular Hemoglobin 30.7 pg (28.0-34.0); Mean Corpuscular Volume 94.9 fl (81-99); Mean Platelet Volume 9.1 fL (7.4-10.4); Monocytes # 0.5 10^3/uL (0.2-0.9); Monocytes % 6.2 %; Neutrophils # 6.04 10^3/uL (1.8-7.7); Neutrophils % 71.1 %; Nucleated Red Blood Cells % 0 %; Platelet Count 460 10^3/cmm (130-400); Red Blood Count 4.14 10^6/uL (4.1-5.3); Red Cell Distribution Width 15.2 % (12.1-15.1); White Blood Count 8.5 10^3/uL (4.0-10.0)
== END 2021-08-09 08:57 | disposition home or self-care (01) ==
LOC: LAB 09:02
PROVIDERS: PCP Family Medicine; Visit Provider Surgery
DX: K92.2 Gastrointestinal hemorrhage, unspecified (principal)
CPT/HCPCS: 85025

== ENCOUNTER 2021-08-17 10:29 | Observation (INO) | payer MEDICARE, MEDICAID, SELFPAY ==
[2021-08-17] VITALS (16 sets, daily range): BP systolic 72–96; BP diastolic 36–58; PULSE 66–95; RESP 14–23; TEMP 36.2–36.7; O2SAT 94–98; BMI 16.7
--- NOTE | 2021-08-17 10:57 | CT_ITS ---
WS: [id number] CT ABDOMEN PELVIS TECHNIQUE: Noncontrast CT of the abdomen and pelvis with coronal and sagittal reformatted images. CLINICAL INFORMATION: RLQ pain, rebound tenderness, n/v COMPARISON: CT July 30, 2021 DLP: 658.[address] scans at [facility] use at least one of these dose optimization techniques: automated e xposure control; mA and/or kV adjustment per patient size (includes targeted exams where dose is matc hed to clinical indication); or iterative reconstruction. FINDINGS: Previously described colonic distention with air-fluid levels in the colon has improved. Colon is dec ompressed today. Previously described colitis appears improved. No evidence of small bowel obstructio n. No pneumatosis or free air. No evidence of acute appendicitis. Appendix may have been previously r emoved. Hepatomegaly. Prior cholecystectomy. Small esophageal hiatal hernia. Normal noncontrast spleen. Shazia l noncontrast pancreas. Adrenal glands are normal. Normal caliber abdominal aorta. Air-fluid level in the bladder may be due to recent instrumentation or Pacheco catheter removal. Additional small locules of air within the bladder wall best seen on the coronal imaging. Recommend correlation for emphysema tous cystitis. Mild bilateral pelvocaliectasis new since previous with mild bilateral ureterectasis. Recommend corre lation for UTI. Sigmoid diverticulosis. No evidence of acute diverticulitis. No free fluid in the abd omen or pelvis. Emphysematous changes in the lung bases. CT/CT abdomen pelvis wo con [id number] IMPRESSION: 1. Previously described colitis with colonic distention appears improved laci red to previous. Air-fluid levels in the colon have resolved. No evidence of sm all or large bowel obstruction. 2. Mild bilateral pelvocaliectasis and ureterectasis is new compared to previo us. No obstructing calculi. Recommend correlation for UTI. 3. Urinary distended bladder with air-fluid level. Recommend correlation with recent instrumentation. 4. Additional small locules of air within the bladder wall best seen on the co muna imaging. Recommend correlation for emphysematous cystitis. 5. Hepatomegaly with cholecystectomy. 6. No pneumatosis or free air. 7. No other significant changes compared to previous. Notified KANE Short at 08/17/2021 12:43 PM.
--- NOTE | 2021-08-17 10:59 | ECG_ITS ---
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 Measurements Intervals [place] Rate: 97 P: 83 [place]: 184 QRS: -56 QRSD: 73 T: 76 QT: 339 QTc: 431 Interpretive Statements SINUS RHYTHM POSSIBLE RIGHT ATRIAL ENLARGEMENT [0.25mV P-WAVE] POSSIBLE LEFT ATRIAL ENLARGEMENT [-0.1mV P-WAVE IN V1/V2] LEFT AXIS DEVIATION [QRS AXIS < -30] POSSIBLE RIGHT VENTRICULAR CONDUCTION DELAY [RSR (QR) IN V1/V2] PROBABLE SEPTAL MYOCARDIAL INFARCTION , OF INDETERMINATE AGE MODERATE ST DEPRESSION Compared to ECG 07/30/2021 17:27:15 Left-axis deviation now present Myocardial infarct finding now present Sinus tachycardia no longer present Electronically Signed On 08-18-2021 5:40:25 [employer]ET [employer] by Reba Mathur M.D. [id number]
--- NOTE | 2021-08-17 11:00 | ED_ITS ---
Documented by User: KANE Short 08/17/21 16:14 HPI - Weakness General: Chief complaint: Weakness Stated complaint: RLQ PAIN, NAUSEA X 3 DAYS Time Seen by Provider: 08/17/21 10:41 History of Present Illness: Patient is a 75-year-old female comes to the ED with abdominal pain, nausea and vomiting. Patient was seen here in the ED on July 28 and patient was admitted admitted for an upper GI bleed. She was discharged home on August 02. Patient says ever since she was discharged she has felt weak and has had some nausea. Approximately 1 week ago she started developing abdominal pain in the right lower quadrant. She rates it a 9 out of 10 currently. She has had multiple episodes of nausea and vomiting and says she is having trouble keeping anything down. She endorses feeling really weak currently. Denies any fever, chills, chest pain, shortness of breath, blood in emesis, blood in stool, constipation, diarrhea, dysuria or hematuria. Patient says she takes digoxin daily and took her dose today around 6 AM. Associated symptoms: Reports nausea and vomiting; Denies chest pain, chills, dysuria, fever(s) or headache(s) Review of Systems Const: Reports: change in appetite (Decreased appetite) and fatigue (Generalized weakness); Denies: fever(s) or chills Eyes: Denies: change in vision or eye discomfort ENMT: Denies: throat pain, odynophagia, nasal discharge or nasal congestion Card: Denies: chest pain, palpitations, edema, swelling of feet/ankles, dyspnea on exertion or orthopnea Resp: Denies: dyspnea, productive cough or non-productive cough GI: Reports: abdominal pain, nausea and vomiting; Denies: diarrhea, constipation or hematochezia : Denies: flank pain, dysuria or hematuria Musc: Denies: neck pain, back pain or extremity swelling Skin/Breast: Denies: rash or new lesions Neuro: Denies: headache(s), numbness in extremities or weakness in extremities PFS ED PFSH: Medical History Acute upper gastrointestinal bleeding (~06/2021) required transfusion 3 units pRBCs Anemia Bacteremia due to Escherichia coli (~08/2019) Chronic kidney disease COPD (chronic obstructive pulmonary disease) Coronary artery disease Digoxin toxicity History of echocardiogram 09/10/2019 EF 69%, I/IV diastolic dysfunction History of Holter monitoring 05/2020 baseline rhythm sinus, 74 bpm, no arrhythmias History of hypertension in past History of stress test 08/2020 normal myocardial perfusion imaging, no ekg changes Hyperlipidemia Hypotension Postural orthostatic tachycardia syndrome Surgical History H/O esophagogastroduodenoscopy (07/30/21) Duodenitis H/O ventral hernia repair History of 3 sections History of appendectomy History of cardiac catheterization 2020 - moderate mid circumflex and LAD lesions though not significant by FFR Status post colonoscopy (07/30/21) Diverticulosis Status post laparoscopic cholecystectomy (04/14/21) Status post right inguinal hernia repair Family History Father Stroke Denies family history of Diabetes CAD (coronary artery disease) Family history of premature coronary artery disease Social History Smoking and tobacco status: current some day smoker cigarettes Packs smoked per day: 1.5 Years cigarettes smoked: 57 Quit status (tobacco): not considering quitting Alcohol intake: never Lives independently: Yes Household members: spouse Marital status: Current occupational status: retired Current gender identity: Female Physical Exam Const: COMMON NORMALS: patient oriented x3 and alert GENERAL APPEARANCE: cooperative HENMT: COMMON NORMALS: normocephalic HEAD & SCALP: normocephalic MOUTH: moist mucous membranes abnormal THROAT: posterior oropharynx normal and uvula midline Eye: COMMON NORMALS: Equal, round and reactive pupils present and conjunctivae normal CONJUNCTIVA: Yes conjunctivae normal PUPIL: Yes Equal, round and reactive pupils present Neck/C-Spine: COMMON NORMALS: supple GENERAL: Yes normal visual inspection Resp: COMMON NORMALS: normal respiratory effort, No retractions, No use of accessory muscles and clear to auscultation bilaterally AUSCULTATION: clear to auscultation bilaterally Cardio: COMMON NORMALS: regular rate, regular rhythm, S1 normal heart sound present, S2 normal heart sound present, No gallops present (Cardio), No clicks present (Cardio), No murmurs present (Cardio) and Peripheral pulses 2+ throughout RATE: regular rate RHYTHM: regular rhythm HEART SOUNDS: S1 normal heart sound present and S2 normal heart sound present PERIPHERAL PULSES: Peripheral pulses 2+ throughout GI: COMMON NORMALS: Normal to inspection, nondistended, normoactive bowel sounds present, Soft to palpation and no masses PALPATION: Yes Soft to palpation, Yes Tenderness to palpation present (GI) and Yes Rebound tenderness present : COMMON NORMALS: Yes no CVA tenderness BLADDER/KIDNEY EXAM: Yes no CVA tenderness Back/Pelvis: COMMON NORMALS: no CVA tenderness Extremity: COMMON NORMALS: normal to inspection and no pedal edema Neuro: COMMON NORMALS: patient oriented x3 and moves all extremities SENSORIUM/ORIENTATION: Yes alert Skin: GENERAL SKIN EXAM: dry skin Course Vital Signs: Vital signs: Vital Signs Temperature 98.4 F 08/19/21 07:56 Pulse Rate 67 08/19/21 09:18 Respiratory Rate 18 08/19/21 09:18 Blood Pressure 113/60 08/19/21 07:56 Pulse Oximetry 98 08/19/21 09:18 MDM - Weakness Medical Decision Making Patient is a 75-year-old female comes to the ED with nausea vomiting, right lower quadrant abdominal pain and generalized weakness. Patient was recently hospitalized a little over 2 weeks ago for upper GI bleed. Patient takes 125 MCG of digoxin daily and took it at 6 AM this morning. Patient's blood pressure is hypotensive at 82/46 upon arrival here in the ED but the rest of her vitals are stable. She has some palpable right lower quadrant tenderness. White blood cell count 14.6, digoxin 3.1, creatinine 2.5. Lactic was 1.8. CT of abdomen showed improving colitis and some UTI signs in the bladder. Patient was given IV fluids which improved her blood pressure here in the ED. due to patient's CHRISTELLE and digoxin level I talked with Dr. Palomino about having patient admitted. I signed patient over to Dr. Palomino to have patient admitted into the hospital. Lab Data I reviewed the patient's lab results. : 08/19/21 05:04 08/19/21 05:04 Radiology Impressions Abdomen/Pelvis CT 08/17/21 10:57 IMPRESSION: 1. Previously described colitis with colonic distention appears improved compared to previous. Air-fluid levels in the colon have resolved. No evidence of small or large bowel obstruction. 2. Mild bilateral pelvocaliectasis and ureterectasis is new compared to previous. No obstructing calculi. Recommend correlation for UTI. 3. Urinary distended bladder with air-fluid level. Recommend correlation with recent instrumentation. 4. Additional small locules of air within the bladder wall best seen on the coronal imaging. Recommend correlation for emphysematous cystitis. 5. Hepatomegaly with cholecystectomy. 6. No pneumatosis or free air. 7. No other significant changes compared to previous. Notified KANE Short at 08/17/2021 12:43 PM. Laboratory Results WBC 14.6 10^3/uL (4.0-10.0) H 08/17/21 10:54 RBC 4.64 10^6/uL (4.1-5.3) 08/17/21 10:54 Hgb 14.4 g/dL (11.5-15.3) 08/17/21 10:54 Hct 41.6 % (37.0-47.0) 08/17/21 10:54 MCV 89.7 fl (81-99) 08/17/21 10:54 MCH 31.0 pg (28.0-34.0) 08/17/21 10:54 MCHC 34.6 g/dL (30.0-36.0) 08/17/21 10:54 RDW 14.6 % (12.1-15.1) 08/17/21 10:54 Plt Count 514 10^3/cmm (130-400) H 08/17/21 10:54 MPV 9.9 fL (7.4-10.4) 08/17/21 10:54 Neut % (Auto) 84.0 % 08/17/21 10:54 Lymph % (Auto) 10.2 % 08/17/21 10:54 Garrett % (Auto) 4.9 % 08/17/21 10:54 Eos % (Auto) 0.2 % 08/17/21 10:54 Baso % (Auto) 0.3 % 08/17/21 10:54 Neut # (Auto) 12.25 10^3/uL (1.8-7.7) H 08/17/21 10:54 Lymph # (Auto) 1.5 10^3/uL (0.8-4.8) 08/17/21 10:54 Garrett # (Auto) 0.7 10^3/uL (0.2-0.9) 08/17/21 10:54 Eos # (Auto) 0.0 10^3/uL (0.0-0.8) 08/17/21 10:54 Baso # (Auto) 0.1 10^3/uL (0.0-0.1) 08/17/21 10:54 Nucleated RBC % (auto) 0 % 08/17/21 10:54 Nucleated RBCs # 0.0 /100WBC 08/17/21 10:54 Sodium 129 mmol/L (136-145) L 08/17/21 10:54 Potassium 3.3 mmol/L (3.5-5.1) L 08/17/21 10:54 Chloride 83 mmol/L (98-107) L 08/17/21 10:54 Carbon Dioxide 27 mmol/L (22-29) 08/17/21 10:54 Anion Gap 22.3 (5-19) H 08/17/21 10:54 BUN 41 mg/dL (8-23) H 08/17/21 10:54 Creatinine 2.5 mg/dL (0.5-0.9) H 08/17/21 10:54 GFR Calculation Not Reportable 08/17/21 10:54 Glucose 127 mg/dL (65-115) H 08/17/21 10:54 Calculated Osmolality 280 mOsm/kg (285-295) L 08/17/21 10:54 Lactic Acid 1.8 mmol/L (0.5-2.2) 08/17/21 11:30 Calcium 8.1 mg/dL (8.5-10.5) L 08/17/21 10:54 Total Bilirubin 0.2 mg/dL (0.15-1.2) 08/17/21 10:54 AST 20 U/L (0-32) 08/17/21 10:54 ALT 10 U/L (0-33) 08/17/21 10:54 Alkaline Phosphatase 127 IU/L (35-105) H 08/17/21 10:54 Total Protein 7.1 g/dL (6.6-8.7) 08/17/21 10:54 Albumin 4.5 g/dL (3.5-5.2) 08/17/21 10:54 Globulin 2.6 g/dL (1.3-4.6) 08/17/21 10:54 Lipase 21 U/L (13-60) 08/17/21 10:54 Urine Color Yellow (Yellow) 08/17/21 13:50 Urine Appearance Hazy (CLEAR) A 08/17/21 13:50 Urine pH 5 (5-7) 08/17/21 13:50 Ur Specific [place] 1.015 (1.005-1.030) 08/17/21 13:50 Urine Protein Neg (Negative) 08/17/21 13:50 Urine Glucose (UA) Norm (Normal) 08/17/21 13:50 Urine Ketones Negative (Negative) 08/17/21 13:50 Urine Blood Neg (Negative) 08/17/21 13:50 Urine Nitrate Negative (Negative) 08/17/21 13:50 Urine Bilirubin Neg (Negative) 08/17/21 13:50 Urine Urobilinogen Neg mg/dL (Negative) 08/17/21 13:50 Ur Leukocyte Esterase Trace (Negative) H 08/17/21 13:50 Urine RBC Rare /hpf (0-2) 08/17/21 13:50 Urine WBC 5-10 /hpf (0-5) H 08/17/21 13:50 Ur Squamous Epith Cells 0-4 /hpf (0-5) H 08/17/21 13:50 Amorphous Sediment Not Reportable 08/17/21 13:50 Urine Bacteria 4+ /hpf (NONE) H 08/17/21 13:50 Digoxin 3.1 ng/mL (0.6-1.2) H* 08/17/21 10:54 Discharge Plan Discharge Patient Disposition: Admitted As Inpatient Admit Provider: Chelsea Herr Clinical Impression: Acute kidney injury, UTI (urinary tract infection), Anemia, Digitalis toxicity Condition: Stable Discharge Diet: Cardiac Discharge Activity: Increase activity as tolerated Sign Out Sign Out Data: Patient Sign Out occurred on 08/17/21 at 13:24. Patient's care was discussed, and care was transferred from to Gurpreet Palomino DO. Coding Level of Care Code ED Activity Specialist for Chg Fwd Exam Comprehensive Documented by User: Gurpreet Palomino DO 08/20/21 08:32 HPI - Weakness General: Chief complaint: Weakness Stated complaint: RLQ PAIN, NAUSEA X 3 DAYS Time Seen by Provider: 08/17/21 10:41 History of Present Illness: Patient is a 75-year-old female comes to the ED with abdominal pain, nausea and vomiting. Patient was seen here in the ED on July 28 and patient was admitted admitted for an upper GI bleed. She was discharged home on August 02. Patient says ever since she was discharged she has felt weak and has had some nausea. Approximately 1 week ago she started developing abdominal pain in the right lower quadrant. She rates it a 9 out of 10 currently. She has had multiple episodes of nausea and vomiting and says she is having trouble keeping anything down. She endorses feeling really weak currently. Denies any fever, chills, chest pain, shortness of breath, blood in emesis, blood in stool, constipation, diarrhea, dysuria or hematuria. Patient says she takes digoxin daily and took her dose today around 6 AM. Patient initially seen by KANE Short chart reviewed. Seen patient reviewed history same history obtained as above. Complaint: generalized weakness Onset (ago): day(s) Duration: constant Location: generalized Severity: severe Relieving factors: none Exacerbating factors: none PFSH ED PFSH: Medical History Acute upper gastrointestinal bleeding (~06/2021) required transfusion 3 units pRBCs Anemia Bacteremia due to Escherichia coli (~08/2019) Chronic kidney disease COPD (chronic obstructive pulmonary disease) Coronary artery disease Digoxin toxicity History of echocardiogram 09/10/2019 EF 69%, I/IV diastolic dysfunction History of Holter monitoring 05/2020 baseline rhythm sinus, 74 bpm, no arrhythmias History of hypertension in past History of stress test 08/2020 normal myocardial perfusion imaging, no ekg changes Hyperlipidemia Hypotension Postural orthostatic tachycardia syndrome Surgical History H/O esophagogastroduodenoscopy (07/30/21) Duodenitis H/O ventral hernia repair History of 3 sections History of appendectomy History of cardiac catheterization 2020 - moderate mid circumflex and LAD lesions though not significant by FFR Status post colonoscopy (07/30/21) Diverticulosis Status post laparoscopic cholecystectomy (04/14/21) Status post right inguinal hernia repair Family History Father Stroke Denies family history of Diabetes CAD (coronary artery disease) Family history of premature coronary artery disease Social History Smoking and tobacco status: current some day smoker cigarettes Packs smoked per day: 1.5 Years cigarettes smoked: 57 Quit status (tobacco): not considering quitting Alcohol intake: never Lives independently: Yes Household members: spouse Marital status: Current occupational status: retired Current gender identity: Female Physical Exam Const: GENERAL APPEARANCE: cooperative ORIENTATION/CONSCIOUSNESS: Yes awake HENMT: COMMON NORMALS: normocephalic and atraumatic HEAD & SCALP: norm ocephalic and atraumatic Neck/C-Spine: COMMON NORMALS: no JVD Resp: COMMON NORMALS: normal respiratory effort, No retractions, No use of accessory muscles and clear to auscultation bilaterally AUSCULTATION: clear to auscultation bilaterally Cardio: COMMON NORMALS: no JVD, regular rate, regular rhythm and No murmurs present (Cardio) RATE: regular rate RHYTHM: regular rhythm GI: COMMON NORMALS: Soft to palpation and No hepatosplenomegaly present AUSCULTATION: Yes normoactive bowel sounds PALPATION: Yes Soft to palpation, No Tenderness to palpation present (GI), No Guarding due to palpation present (GI) and Yes No hepatosplenomegaly present Extremity: COMMON NORMALS: normal to inspection, capillary refill normal, no clubbing, cyanosis or edema, no calf tenderness and no pedal edema Skin: COMMON NORMALS: no rashes or lesions noted GENERAL SKIN EXAM: no rashes or lesions noted Course Vital Signs: Vital signs: Vital Signs Temperature 98.4 F 08/19/21 07:56 Pulse Rate 67 08/19/21 09:18 Respiratory Rate 18 08/19/21 09:18 Blood Pressure 113/60 08/19/21 07:56 Pulse Oximetry 98 08/19/21 09:18 MDM - Weakness Medical Decision Making Patient is a 75-year-old female comes to the ED with nausea vomiting, right lower quadrant abdominal pain and generalized weakness. Patient was recently hospitalized a little over 2 weeks ago for upper GI bleed. Patient takes 125 MCG of digoxin daily and took it at 6 AM this morning. Patient's blood pressure is hypotensive at 82/46 upon arrival here in the ED but the rest of her vitals are stable. She has some palpable right lower quadrant tenderness. White blood cell count 14.6, digoxin 3.1, creatinine 2.5. Lactic was 1.8. CT of abdomen showed improving colitis and some UTI signs in the bladder. Patient was given IV fluids which improved her blood pressure here in the ED. due to patient's CHRISTELLE and digoxin level I talked with Dr. Palomino about having patient admitted. I signed patient over to Dr. Palomino to have patient admitted into the hospital. Reviewed chart as seen the patient. Agree with Carl's assessment. Patient is dig toxic has acute kidney injury. He is anemic as well discussed with hospitalist orders written Medical Records I reviewed the patient's medical records. Lab Data I reviewed the patient's lab results. : 08/19/21 05:04 08/19/21 05:04 Radiology Impressions Abdomen/Pelvis CT 08/17/21 10:57
[2021-08-17 11:05] LABS: Basophils # 0.1 10^3/uL (0.0-0.1); Basophils % 0.3 %; Eosinophils % 0.2 %; Hematocrit 41.6 % (37.0-47.0); Hemoglobin 14.4 g/dL (11.5-15.3); Lymphocytes # 1.5 10^3/uL (0.8-4.8); Lymphocytes % 10.2 %; Mean Corpuscular HGB Conc 34.6 g/dL (30.0-36.0); Mean Corpuscular Volume 89.7 fl (81-99); Mean Platelet Volume 9.9 fL (7.4-10.4); Monocytes # 0.7 10^3/uL (0.2-0.9); Monocytes % 4.9 %; Neutrophils # 12.25 10^3/uL (1.8-7.7); Nucleated Red Blood Cells % 0 %; Platelet Count 514 10^3/cmm (130-400); Red Blood Count 4.64 10^6/uL (4.1-5.3); Red Cell Distribution Width 14.6 % (12.1-15.1); White Blood Count 14.6 10^3/uL (4.0-10.0)
[2021-08-17] MEDS: morphine 4 mg/mL SDV 1 mL 2 MG IVP (11:07)
[2021-08-17] MEDS: ondansetron 2 mg/ML SDV 2 mL 4 MG IVP (11:07)
[2021-08-17] MEDS: sodium chloride 0.9% 1,000 ML 999 ML IV (11:08)
--- NOTE | 2021-08-17 11:16 | PC.NURSE ---
States BP usually runs about 105/55 at home
[2021-08-17 11:32] LABS: Alanine Aminotransferase 10 U/L (0-33); Albumin Level 4.5 g/dL (3.5-5.2); Alkaline Phosphatase 127 IU/L (35-105); Blood Urea Nitrogen 41 mg/dL (8-23); Calcium 8.1 mg/dL (8.5-10.5); Carbon Dioxide 27 mmol/L (22-29); Chloride 83 mmol/L (98-107); Globulin 2.6 g/dL (1.3-4.6); Glucose 127 mg/dL (65-115); Lipase 21 U/L (13-60); Osmolality Calculated 280 mOsm/kg (285-295); Sodium 129 mmol/L (136-145); Total Bilirubin 0.2 mg/dL (0.15-1.2); Total Protein 7.1 g/dL (6.6-8.7)
[2021-08-17 11:33] LABS: Anion Gap 22.3 (5-19); Aspartate Amino Transferase 20 U/L (0-32); Potassium 3.3 mmol/L (3.5-5.1)
[2021-08-17 11:34] LABS: Digoxin 3.1 ng/mL (0.6-1.2)
[2021-08-17 12:23] LABS: Lactic Sepsis W/Reflex 1.8 mmol/L (0.5-2.2)
[2021-08-17 14:30] LABS: Bilirubin Urine Neg (Negative); Blood Urine Neg (Negative); Glucose Urine UA Norm (Normal); Ketones Urine Negative (Negative); Leukocyte Esterase Urine Trace (Negative); Nitrate Urine Negative (Negative); Protein Urine Neg (Negative); Specific Gravity, Urine 1.015 (1.005-1.030); Urine Appearance Hazy (CLEAR); Urine Color Yellow (Yellow); Urobilinogen Urine Neg (Negative); pH Urine 5 (5-7)
[2021-08-17 14:31] LABS: Add Urine Culture? Yes; Bacteria Urine 4+ /hpf; RBC Urine RARE /hpf (0-2); Squamous Epithelial Cell Urine 0-4 /hpf (0-5)
--- NOTE | 2021-08-17 15:37 | PM.HP ---
Providers/Chief Complaint Admitting Physician: Chelsea Herr MD Primary Care Provider: Laith Patel Chief Complaint: RLQ PAIN, NAUSEA X 3 DAYS History of Present Illness Maile López is a 75 year old female who presented to the emergency room chief complaint reviewed and consider the above information for this visit nausea, vomiting with all attempts at oral intake whether solid or liquid and abdominal pain, primarily in the right lower quadrant. Patient has had some recurrent visits lately. She had laparoscopic cholecystectomy in March of last year. Postoperatively she continued to have abdominal discomfort but denies having issues with nausea and vomiting back then. From what I can tell she began having problems in June with nausea and vomiting for both solids and liquids. She was hospitalized from the to the with similar complaints along with syncopal episodes. She had multiple metabolic/electrolyte abnormalities along with orthostasis. While she was in the hospital, she had a melanotic stool and had drop in hemoglobin. There was some concern about NSAID associated gastritis and she was started on PPI. She was referred for outpatient endoscopy. EGD on July 30 showed normal esophagus, normal fundus, body, antrum and pylorus of the stomach and some duodenitis in the first portion of the duodenum while the second and third portions were noted to be normal. Biopsies were taken from the antrum and be first portion of the duodenum. Colonoscopy done the same day showed moderate sigmoid diverticulosis but was otherwise normal beyond some difficulty passing the colonoscope through the sigmoid colon. The appendicular orifice was able to be identified. Unfortunately later that day, patient had upper GI bleeding associated with significant acute blood loss anemia and hemodynamic instability necessitating blood transfusion and pressor support. Hemoglobin was as low as 6.6. NG tube revealed bloody output and patient received a total of 3 units of packed red blood cells. Hemoglobin was up to 10. She was discharged on August 02 with plan to hold Plavix for a week. She indicates that she had followed up with her primary care provider and resumed Plavix and other medications. She denies any recurrent hematemesis. She has not had any diarrhea that she describes. Denies difficulty with urination. Denies any fevers. Simply states that anytime she tries to eat or drink anything it comes back up. In the emergency room today she was found to have evidence of acute kidney injury, digoxin toxicity and dehydration. She is being admitted for further evaluation and treatment as indicated. She currently does have an appetite. She states vomiting occurs approximately 2 minutes after any attempt at oral intake. Review of Systems Const: Reports: fatigue; Denies: fever(s), chills, change in appetite or change in weight ENMT: Denies: throat pain or nasal congestion Card: Denies: chest pain, palpitations, edema, syncope or pre-syncope Resp: Denies: dyspnea, productive cough or non-productive cough GI: Reports: abdominal pain, nausea and vomiting; Denies: hematemesis, heartburn, diarrhea, constipation, hematochezia or melena : Reports: oliguria; Denies: difficulty voiding, urinary frequency, urinary urgency or hematuria Musc: Reports: muscle cramps and muscle weakness; Denies: extremity pain or extremity swelling Skin/Breast: Reports: pruritus and dry skin; Denies: rash or sores Neuro: Denies: headache(s), numbness in extremities, difficulty walking or dizziness Psych: Reports: anxiety; Denies: depression Misael/Lymph: Denies: easy bruising or easy bleeding Medications/Allergies Home Medications Medication Instructions Recorded Confirmed Last Taken Type amitriptyline 25 mg tablet 25 mg PO BEDTIME 09/09/19 07/30/21 07/29/21 History nitroglycerin 0.4 mg sublingual 0.4 mg SUBLINGUAL PRN PRN 09/09/19 07/30/21 Unknown History tablet primidone 50 mg tablet 50 mg PO BID tab 07/16/20 07/30/21 07/30/21 History simvastatin 20 mg tablet 20 mg PO DAILY 01/04/21 07/30/21 07/29/21 History digoxin 125 mcg (0.125 mg) tablet 125 mcg PO DAILY 07/09/21 07/30/21 07/30/21 History diltiazem HCl 60 mg 60 mg PO BID 07/09/21 07/30/21 07/30/21 History capsule,extended release 12 hr ferrous sulfate 325 mg (65 mg 325 mg PO BID 07/09/21 07/30/21 07/30/21 History iron) tablet (FeroSul) isosorbide dinitrate 5 mg tablet 2.5 mg PO BID 07/09/21 07/30/21 07/30/21 History metoprolol succinate 25 mg 12.5 mg PO DAILY 07/09/21 07/30/21 07/30/21 History tablet,extended release 24 hr potassium chloride 20 mEq 20 meq PO DAILY #20 tab 07/28/21 07/30/21 07/30/21 Rx tablet,extended release clopidogrel 75 mg tablet (Plavix) 75 mg PO DAILY 07/30/21 07/30/21 07/30/21 History omeprazole 40 mg capsule,delayed 40 mg PO DAILY 07/30/21 07/30/21 07/30/21 History release tizanidine 4 mg tablet 4 mg PO Q6H PRN 07/30/21 07/30/21 Unknown History triamterene 37.5 1 tab PO DAILY 07/30/21 07/30/21 07/30/21 History mg-hydrochlorothiazide 25 mg tablet sodium di- and 1 tab PO BID #4 tab 08/02/21 Unknown Rx monophosphate-potassium phos monobasic 250 mg tablet (Phospha 250 Neutral) Allergies Allergy/AdvReac Type Severity Reaction Status Date / Time iodine Allergy Unknown Verified 08/17/21 10:31 Penicillins Allergy ALGY-Anaphy Verified 08/17/21 10:31 laxis PFSH Acute PFSH: Medical History (Updated 08/17/21 @ 20:17 by Chelsea Herr MD) Acute upper gastrointestinal bleeding (~06/2021) required transfusion 3 units pRBCs Anemia Bacteremia due to Escherichia coli (~08/2019) Chronic kidney disease COPD (chronic obstructive pulmonary disease) Coronary artery disease History of echocardiogram 09/10/2019 EF 69%, I/IV diastolic dysfunction History of Holter monitoring 05/2020 baseline rhythm sinus, 74 bpm, no arrhythmias History of hypertension in past History of stress test 08/2020 normal myocardial perfusion imaging, no ekg changes Hyperlipidemia Postural orthostatic tachycardia syndrome Surgical History (Updated 08/17/21 @ 19:32 by Chelsea Herr MD) H/O esophagogastroduodenoscopy (07/30/21) Duodenitis H/O ventral hernia repair History of 3 sections History of appendectomy History of cardiac catheterization 2020 - moderate mid circumflex and LAD lesions though not significant by FFR Status post colonoscopy (07/30/21) Diverticulosis Status post laparoscopic cholecystectomy (04/14/21) Status post right inguinal hernia repair Family History Father Stroke Denies family history of Diabetes CAD (coronary artery disease) Family history of premature coronary artery disease Social History (Updated 08/17/21 @ 19:32 by Chelsea Herr MD) Smoking and tobacco status: current some day smoker cigarettes Packs smoked per day: 1.5 Years cigarettes smoked: 57 Quit status (tobacco): not considering quitting Alcohol intake: never Substance/Drug Use: never Lives independently: Yes Household members: spouse Marital status: Current occupational status: retired Current gender identity: Female Vitals/I&O/Wt Last Vital Signs Temp 97.8 F 08/17/21 11:30 Pulse 81 08/17/21 15:14 Resp 19 H 08/17/21 15:14 BP 86/45 08/17/21 15:14 Pulse Ox 95 08/17/21 15:14 Weight last 48 hrs Weight 39.009 kg Physical Exam Narrative: Constitutional: Awake and alert, cooperative, thin build HEENT: Normocephalic, extraocular movements are intact, dry mucous membranes Neck: Supple Respiratory: Clear to auscultation without any rales rhonchi or wheezes Cardiovascular: Regular rate and rhythm, no murmurs gallops or rubs Abdomen: Soft, positive bowel sounds, tender right lower quadrant but without rebound or guarding : Pacheco catheter noted with darker yellow urine Extremities: No pitting edema or calf tenderness Skin: Dry with some scaling skin noted to legs more so than arms Neuro: Speech clear, face symmetric, moves all extremities Psych: Somewhat flat affect Urinary Catheter Management: Pacheco: Cath Placed During This Visit: yes Urinary Catheter Date of Insertion: 08/17/21 Urinary Catheter Time of Insertion: 14:43 Data : 08/17/21 10:54 08/17/21 10:54 Other Labs: Radiology Impressions Abdomen/Pelvis CT 08/17/21 10:57 IMPRESSION: 1. Previously described colitis with colonic distention appears improved compared to previous. Air-fluid levels in the colon have resolved. No evidence of small or large bowel obstruction. 2. Mild bilateral pelvocaliectasis and ureterectasis is new compared to previous. No obstructing calculi. Recommend correlation for UTI. 3. Urinary distended bladder with air-fluid level. Recommend correlation with recent instrumentation. 4. Additional small locules of air within the bladder wall best seen on the coronal imaging. Recommend correlation for emphysematous cystitis. 5. Hepatomegaly with cholecystectomy. 6. No pneumatosis or free air. 7. No other significant changes compared to previous. Laboratory Results WBC 14.6 10^3/uL (4.0-10.0) H 08/17/21 10:54 RBC 4.64 10^6/uL (4.1-5.3) 08/17/21 10:54 Hgb 14.4 g/dL (11.5-15.3) 08/17/21 10:54 Hct 41.6 % (37.0-47.0) 08/17/21 10:54 MCV 89.7 fl (81-99) 08/17/21 10:54 MCH 31.0 pg (28.0-34.0) 08/17/21 10:54 MCHC 34.6 g/dL (30.0-36.0) 08/17/21 10:54 RDW 14.6 % (12.1-15.1) 08/17/21 10:54 Plt Count 514 10^3/cmm (130-400) H 08/17/21 10:54 MPV 9.9 fL (7.4-10.4) 08/17/21 10:54 Neut % (Auto) 84.0 % 08/17/21 10:54 Lymph % (Auto) 10.2 % 08/17/21 10:54 Phillips % (Auto) 4.9 % 08/17/21 10:54 Eos % (Auto) 0.2 % 08/17/21 10:54 Baso % (Auto) 0.3 % 08/17/21 10:54 Neut # (Auto) 12.25 10^3/uL (1.8-7.7) H 08/17/21 10:54 Lymph # (Auto) 1.5 10^3/uL (0.8-4.8) 08/17/21 10:54 Phillips # (Auto) 0.7 10^3/uL (0.2-0.9) 08/17/21 10:54 Eos # (Auto) 0.0 10^3/uL (0.0-0.8) 08/17/21 10:54 Baso # (Auto) 0.1 10^3/uL (0.0-0.1) 08/17/21 10:54 Nucleated RBC % (auto) 0 % 08/17/21 10:54 Nucleated RBCs # 0.0 /100WBC 08/17/21 10:54 Sodium 129 mmol/L (136-145) L 08/17/21 10:54 Potassium 3.3 mmol/L (3.5-5.1) L 08/17/21 10:54 Chloride 83 mmol/L (98-107) L 08/17/21 10:54 Carbon Dioxide 27 mmol/L (22-29) 08/17/21 10:54 Anion Gap 22.3 (5-19) H 08/17/21 10:54 BUN 41 mg/dL (8-23) H 08/17/21 10:54 Creatinine 2.5 mg/dL (0.5-0.9) H 08/17/21 10:54 GFR Calculation Not Reportable 08/17/21 10:54 Glucose 127 mg/dL (65-115) H 08/17/21 10:54 Calculated Osmolality 280 mOsm/kg (285-295) L 08/17/21 10:54 Lactic Acid 1.8 mmol/L (0.5-2.2) 08/17/21 11:30 Calcium 8.1 mg/dL (8.5-10.5) L 08/17/21 10:54 Total Bilirubin 0.2 mg/dL (0.15-1.2) 08/17/21 10:54 AST 20 U/L (0-32) 08/17/21 10:54 ALT 10 U/L (0-33) 08/17/21 10:54 Alkaline Phosphatase 127 IU/L (35-105) H 08/17/21 10:54 Total Protein 7.1 g/dL (6.6-8.7) 08/17/21 10:54 Albumin 4.5 g/dL (3.5-5.2) 08/17/21 10:54 Globulin 2.6 g/dL (1.3-4.6) 08/17/21 10:54 Lipase 21 U/L (13-60) 08/17/21 10:54 Urine Color Yellow (Yellow) 08/17/21 13:50 Urine Appearance Hazy (CLEAR) A 08/17/21 13:50 Urine pH 5 (5-7) 08/17/21 13:50 Ur Specific [place] 1.015 (1.005-1.030) 08/17/21 13:50 Urine Protein Neg (Negative) 08/17/21 13:50 Urine Glucose (UA) Norm (Normal) 08/17/21 13:50 Urine Ketones Negative (Negative) 08/17/21 13:50 Urine Blood Neg (Negative) 08/17/21 13:50 Urine Nitrate Negative (Negative) 08/17/21 13:50 Urine Bilirubin Neg (Negative) 08/17/21 13:50 Urine Urobilinogen Neg mg/dL (Negative) 08/17/21 13:50 Ur Leukocyte Esterase Trace (Negative) H 08/17/21 13:50 Urine RBC Rare /hpf (0-2) 08/17/21 13:50 Urine WBC 5-10 /hpf (0-5) H 08/17/21 13:50 Ur Squamous Epith Cells 0-4 /hpf (0-5) H 08/17/21 13:50 Amorphous Sediment Not Reportable 08/17/21 13:50 Urine Bacteria 4+ /hpf (NONE) H 08/17/21 13:50 Digoxin 3.1 ng/mL (0.6-1.2) H* 08/17/21 10:54 Micro: Microbiology 08/17/21 12:39 Blood Culture - Preliminary Blood SPECIMEN COLLECTED 08/17/21 12:33 Blood Culture - Preliminary Blood SPECIMEN COLLECTED A&P Assessment and plan (1) Nausea and vomiting: Most notable with attempts at oral intake, has a history of some chronic GI complaints in the last 6 months but I think acutely she was probably starting to develop digoxin toxicity as a source of her symptoms. Associated with this is some right lower quadrant abdominal pain. CT imaging is not that revealing today though shows improvement in previously identified findings. The pain has persisted on exam, but is not currently severe. Lactic acid was checked and was normal at 1.8 in the ER. Status: Acute Qualifiers: Vomiting type: bilious vomiting Qualified Code(s): R11.14 - Bilious vomiting (2) Acute kidney injury: With urine creatinine about double values from right at 2 weeks ago. At this point in time it could be secondary to hypovolemia from vomiting and/or resumption of diuretic therapy. Blood pressures are in the low normal - low range after she resumed taking all of her previously prescribed medications. Cannot rule out episodes of hypoperfusion as contributing factors. She does have a full bladder noted on imaging so postobstructive process is also within the differential. She had E. coli urinary tract infection identified during the most recent hospital stay and looks to have been treated with Rocephin. Status: Acute (3) Digoxin toxicity: In a patient chronically on digoxin for unclear reasons, I do not see documented evidence of SVT in the past, though I did see some indication of nonsustained ventricular tachycardia. Status: Acute Qualifiers: Encounter type: initial encounter Injury intent: accidental or unintentional Qualified Code(s): T46.0X1A - Poisoning by cardiac-stimulant glycosides and drugs of similar action, accidental (unintentional), initial encounter (4) Anemia: Currently with normal hemoglobin though expect will have drop with IV fluids. Had acute blood loss anemia in June of this year from upper GI bleeding after endoscopy and biopsies which necessitated transfusion of 3 units of packed red blood cells. Denies any gross bleeding recently. Status: Chronic Qualifiers: Anemia type: iron deficiency Iron deficiency anemia type: other iron deficiency Qualified Code(s): D50.8 - Other iron deficiency anemias (5) COPD (chronic obstructive pulmonary disease): Not currently acute, ongoing tobacco use Status: Chronic Qualifiers: COPD type: emphysema Emphysema type: centrilobular Qualified Code(s): J43.2 - Centrilobular emphysema (6) Postural orthostatic tachycardia syndrome: Notated in records, currently with low normal-low blood pressures at supine position, denies recent syncope Status: Chronic Plan Urinalysis with some epithelial cells along with white cells and bacteriuria however patient denies any urinary symptoms, earlier this month E. coli identified on urine. Radiology interpretation of CT abdomen and pelvis showed mild bilateral pelvocaliectasis and ureterectasis along with small locules of air within the bladder, with recommendation to correlate for UTI and edematous cystitis. Patient has white count of 14,000. She has had previous E. coli bacteremia in 2020. While she does not describe definitive urinary symptoms, I do have some concern for possibility of urinary infection, possibly partially treated versus early in a patient presenting with GI symptoms and her history Observation admission IV fluids along with some potassium replacement Hold digoxin Unless clear indication for need to continue digoxin rather than potential alternatives, would consider not resuming digoxin at discharge as this is at least the second time that she has had digoxin toxicity in the last 6 months or so Presently also holding diltiazem, triamterene/hydrochlorothiazide and isosorbide We will continue low-dose beta-blockade Monitor blood pressures for need to resume above medications Prior to discharge will need evaluation oh which medications to resume and careful monitoring after discharge of vital signs, follow-up labs and clinical response to medications both held and restarted to ensure that she can tolerate treatment Recheck electrolytes and digoxin level in the morning Pacheco catheter was placed in the emergency room due to urinary retention which was evident on imaging with distended bladder although documentation only shows 100 mL of urine output from placement Monitor overnight and consider discontinuation of catheter sooner rather than later depending on results of fluid administration other care this evening Expect some drop in hemoglobin overnight from hydration Empiric Rocephin for the time being, aware of allergies Follow-up blood and urine cultures Breathing treatments as needed Continue home Plavix and statin therapy Continue tizanidine but at every 12 hours dosing only if needed Continue home primidone PPI which she takes at home Hold Elavil Supportive care otherwise Presently in observation status at low risk for VTE though if requires transition to inpatient status will need to address VTE prophylaxis appropriately Findings, concerns and plans were discussed with patient and she was given an opportunity to ask questions Full code Attestations Medical Necessity Statement*: Currently anticipate a stay less than two midnights inpatient presenting with acute kidney injury and digoxin toxicity. She reports nausea and vomiting for couple of days. Current plan is to treat with IV fluids and reevaluate electrolytes and digoxin level in the morning. At this point time it is not clear if GI symptoms have contributed to CHRISTELLE and subsequent dig toxicity or if digoxin toxicity has contributed to development of GI symptoms and subsequent CHRISTELLE. Coding Level of Care Code Acute Belt Sander for g Fwd Diagnoses Nausea and vomiting R11.14 Vomiting type: bilious vomiting Acute kidney injury N17.9 Digoxin toxicity T46.0X1A Encounter type: initial encounter Injury intent: accidental or unintentional Anemia D50.8 Anemia type: iron deficiency Iron deficiency anemia type: other iron deficiency COPD (chronic obstructive pulmonary disease) J43.2 COPD type: emphysema Emphysema type: centrilobular Postural orthostatic tachycardia syndrome I49.8
--- NOTE | 2021-08-17 17:07 | PC.NURSE ---
report called to Karen
[2021-08-17] MEDS: sodium chlor 0.9% + KCl 20 mEq 20 MEQ/1,000 ML BAG 100 MEQ IV (18:19)
[2021-08-17] MEDS: sodium chloride 0.9% 500 ML 999 ML IV (21:13)
[2021-08-17] MEDS: acetaminophen 325 mg Tablet 650 MG PO (21:15)
[2021-08-17] MEDS: cefTRIAXone 1,000 MG in sodium chloride 0.9% (plus) 50 ML 100 MG IV (21:47)
[2021-08-18] VITALS (9 sets, daily range): BP systolic 74–117; BP diastolic 36–66; PULSE 53–78; RESP 16–18; TEMP 36.3–36.9; O2SAT 93–99
--- NOTE | 2021-08-18 00:05 | PC.NURSE ---
bp low, 72/36, hospitalist informed, order for 500 ml NS bolus and recheck BP 30 minutes after
[2021-08-18] MEDS: sodium chloride 0.9% 500 ML 999 ML IV ×2 (00:13→01:56)
[2021-08-18 01:39] LABS: Basophils % 0.5 %; Eosinophils # 0.1 10^3/uL (0.0-0.8); Eosinophils % 1.6 %; Hematocrit 31.6 % (37.0-47.0); Hemoglobin 10.6 g/dL (11.5-15.3); Lymphocytes # 1.8 10^3/uL (0.8-4.8); Mean Corpuscular HGB Conc 33.5 g/dL (30.0-36.0); Mean Corpuscular Hemoglobin 31.1 pg (28.0-34.0); Mean Corpuscular Volume 92.7 fl (81-99); Monocytes # 0.5 10^3/uL (0.2-0.9); Monocytes % 6.6 %; Nucleated Red Blood Cells % 0 %; Platelet Count 331 10^3/cmm (130-400); Red Blood Count 3.41 10^6/uL (4.1-5.3); White Blood Count 7.3 10^3/uL (4.0-10.0)
[2021-08-18 02:04] LABS: Blood Urea Nitrogen 37 mg/dL (8-23); Calcium 6.7 mg/dL (8.5-10.5); Carbon Dioxide 24 mmol/L (22-29); Chloride 94 mmol/L (98-107); Glucose 77 mg/dL (65-115); Magnesium 1.8 mg/dL (1.7-2.3); Osmolality Calculated 277 mOsm/kg (285-295); Phosphorus 3.6 mg/dL (2.5-4.5); Sodium 130 mmol/L (136-145)
[2021-08-18 02:06] LABS: Anion Gap 15.2 (5-19); Potassium 3.2 mmol/L (3.5-5.1)
[2021-08-18 02:07] LABS: Digoxin 2.7 ng/mL (0.6-1.2)
--- NOTE | 2021-08-18 03:54 | PC.NURSE ---
patient bp had remained low after first bolus order from Dr. Franco, second bolus given, bp increased slightly 92/42, notified of current lab values including HGB, NA, K, Dig level. CBC order for 0600
[2021-08-18 05:17] LABS: Basophils % 0.6 %; Eosinophils # 0.2 10^3/uL (0.0-0.8); Eosinophils % 2.6 %; Hemoglobin 10.2 g/dL (11.5-15.3); Lymphocytes # 1.3 10^3/uL (0.8-4.8); Lymphocytes % 21.4 %; Mean Corpuscular HGB Conc 31.9 g/dL (30.0-36.0); Mean Corpuscular Hemoglobin 31.2 pg (28.0-34.0); Mean Corpuscular Volume 97.9 fl (81-99); Mean Platelet Volume 9.9 fL (7.4-10.4); Monocytes # 0.4 10^3/uL (0.2-0.9); Monocytes % 6.6 %; Neutrophils # 4.28 10^3/uL (1.8-7.7); Neutrophils % 68.5 %; Nucleated Red Blood Cells % 0 %; Platelet Count 316 10^3/cmm (130-400); Red Blood Count 3.27 10^6/uL (4.1-5.3); Red Cell Distribution Width 15.3 % (12.1-15.1); White Blood Count 6.3 10^3/uL (4.0-10.0)
[2021-08-18] MEDS: sodium chlor 0.9% + KCl 20 mEq 20 MEQ/1,000 ML BAG 100 MEQ IV (06:18)
[2021-08-18] MEDS: atorvastatin 40 mg Tablet 20 MG PO (08:19)
[2021-08-18] MEDS: potassium chloride ER 20 mEq Tablet PO (08:19)
[2021-08-18] MEDS: clopidogrel 75 mg Tablet PO (08:19)
[2021-08-18] MEDS: primidone 50 mg Tablet PO ×2 (08:19→17:18)
[2021-08-18] MEDS: ferrous sulfate EC 325 mg Tablet PO ×2 (08:19→17:18)
[2021-08-18] MEDS: pantoprazole DR 40 mg Tablet PO ×2 (08:19→17:18)
--- NOTE | 2021-08-18 10:10 | PC.CHAP ---
Pastoral Care Encounter/Spiritual Assessment Type of Contact [] Declined contact printer dry film visit [] Patient/Family/Request visit [] Outpatient visit [] Follow-up visit [] Physician referral [] Code/Alert [x] Routine visit [] Staff referral [] Actively dying [] Patient sleeping [] Family support [] [] Out of room [] Palliative care [] [] Receiving care in room [] Pre-surgical visit [] Trauma [] Long length of stay [] ICU visit [] Other: Relational/Emotional Strength [x] Patient feels connected with others/family/visitors/staff [] Distress [] Loneliness/isolation [] Abandonment Spirituality of Patient [x] Person of Lizeth [] Attends Catholic of their Lizeth [x] Believes in Prayer [] Reads Bible or Restoration materials [] There are Spiritual issues to be addressed Bus Mechanic Interventions [x] Prayer [x] Active listening [x] Non-anxious presence [] Spiritual/emotional support [] Crisis/trauma care [] Spiritual counseling [] Bereavement support [] Provided bereavement packet [] Provided Bible/devotional materials [] Provided toy/stuffed animal, coloring book to patient or family member [] Provided Communion [] Anointing/Pep [] Salvation [x] Completed spiritual assessment [] Other: Impact on Illness or Injury [] Angry [] Fearful [] Anxious [] Often cries [] Exhaustion [] Unable to work [] Unable to attend synagogue [] Unable to walk/stand [] Unable to read [] Unable to drive [] Unable to eat/drink [] Unable to sleep [] Unable to be with family [] Patient intubated [] Other: Summary Time spent with patient 10 min
--- NOTE | 2021-08-18 16:45 | PM.PN ---
Subjective Subjective: She is feeling better, but is bothered by pain in right lower quadrant. Nausea vomiting resolved. Denies dizziness, vision changes. Vitals/I&O/Wt Last Vital Signs Temp 98.3 F 08/18/21 15:51 Pulse 74 08/18/21 15:51 Resp 18 08/18/21 15:51 BP 113/66 08/18/21 15:51 Pulse Ox 93 08/18/21 15:51 08/18/21 08/18/21 08/18/21 06:59 14:59 22:59 Intake Total 2000 / 3550 480 / 480 Output Total 500 / 500 1000 / 1000 Balance 1500 / 3050 -520 / -520 Weight last 48 hrs Weight 39.009 kg Physical Exam Const: COMMON NORMALS: no acute distress and patient oriented x3 HENMT: COMMON NORMALS: oropharynx normal Neck/C-Spine: COMMON NORMALS: no JVD Resp: COMMON NORMALS: normal respiratory effort and clear to auscultation bilaterally AUSCULTATION: clear to auscultation bilaterally Cardio: COMMON NORMALS: no JVD, regular rhythm, S1 normal heart sound present, S2 normal heart sound present and No murmurs present (Cardio) RHYTHM: regular rhythm HEART SOUNDS: S1 normal heart sound present and S2 normal heart sound present GI: COMMON NORMALS: Normal to inspection, nondistended, normoactive bowel sounds present and Soft to palpation PALPATION: Yes Soft to palpation and Yes Tenderness to palpation present (GI) Details: RLQ Extremity: COMMON NORMALS: no joint enlargement and no pedal edema Neuro: COMMON NORMALS: patient oriented x3 and moves all extremities Skin: COMMON NORMALS: no rashes or lesions noted GENERAL SKIN EXAM: no rashes or lesions noted Urinary Catheter Management: Pcaheco: Cath Placed During This Visit: yes Reason for Continuing Indwelling Catheter: Acute Urinary Retention or Obstruction Urinary Catheter Date of Insertion: 08/17/21 Urinary Catheter Time of Insertion: 14:43 Data : 08/18/21 05:10 08/18/21 01:30 Micro: Microbiology 08/17/21 12:39 Blood Culture - Preliminary Blood NEGATIVE TO DATE 08/17/21 12:33 Blood Culture - Preliminary Blood NEGATIVE TO DATE 08/17/21 13:50 Urine Culture - Preliminary Urine,Clean Catch Gram Negative Rods A&P Assessment and plan (1) Hypotension: Episodes of hypotension overnight, required boluses. Blood pressure soft this morning. Stop metoprolol. Holding diltiazem. Imdur. Blood pressure slightly better. Monitor. Status: Acute (2) UTI (urinary tract infection): Gram-negative rods. Continue ceftriaxone. Follow-up urine culture. Status: Acute (3) Nausea and vomiting: Resolved. Possibly due to digoxin, level decreasing. Nausea and vomiting resolved. Right lower quadrant abdominal pain, not corresponding to any pathology to findings on CT abdomen pelvis. Prior appendectomy. Will reassess abdominal symptoms. Status: Acute Qualifiers: Vomiting type: bilious vomiting Qualified Code(s): R11.14 - Bilious vomiting (4) Acute kidney injury: Creatinine slightly better down to 2.2 with IV fluid challenge. Nausea vomiting resolved. Resumed on diet. Stop IVF. Reassess renal function. Status: Acute (5) Digoxin toxicity: Improving. Follow-up level. Not a clear reason of why she is on digoxin chronically, given digoxin toxicity likely would discontinue. Status: Acute Qualifiers: Encounter type: initial encounter Injury intent: accidental or unintentional Qualified Code(s): T46.0X1A - Poisoning by cardiac-stimulant glycosides and drugs of similar action, accidental (unintentional), initial encounter (6) Anemia: With acute decrease in hemoglobin from 14.4-10.6, but on recheck again later this morning 10.2. Likely with dilutional effect. Recheck hemoglobin. Continue Plavix for now. Had acute blood loss anemia in June of this year from upper GI bleeding after endoscopy and biopsies which necessitated transfusion of 3 units of packed red blood cells. Denies any gross bleeding recently. Status: Chronic Qualifiers: Anemia type: iron deficiency Iron deficiency anemia type: other iron deficiency Qualified Code(s): D50.8 - Other iron deficiency anemias (7) COPD (chronic obstructive pulmonary disease): Not currently acute, ongoing tobacco use Status: Chronic Qualifiers: COPD type: emphysema Emphysema type: centrilobular Qualified Code(s): J43.2 - Centrilobular emphysema (8) Postural orthostatic tachycardia syndrome: Notated in records, currently with low normal-low blood pressures at supine position, denies recent syncope Status: Chronic Attestations Medical Necessity Statement*: Continue admission for management and reassessment due to hypotension, UTI, CHRISTELLE, supratherapeutic digoxin level acute anemia, and additional comorbidities as above. Coding Level of Care Code Acute Statement Distribution Clerk for Chg Fwd Diagnoses Nausea and vomiting R11.14 Vomiting type: bilious vomiting Acute kidney injury N17.9 Digoxin toxicity T46.0X1A Encounter type: initial encounter Injury intent: accidental or unintentional Anemia D50.8 Anemia type: iron deficiency Iron deficiency anemia type: other iron deficiency COPD (chronic obstructive pulmonary disease) J43.2 COPD type: emphysema Emphysema type: centrilobular Postural orthostatic tachycardia syndrome I49.8 Hypotension I95.9 UTI (urinary tract infection) N39.0
[2021-08-18] MEDS: cefTRIAXone 1,000 MG in sodium chloride 0.9% (plus) 50 ML 100 MG IV (19:53)
[2021-08-19] VITALS: BP 112/62; PULSE 70; RESP 17; O2SAT 94
[2021-08-19 03:44] VITALS: BP 106/65; PULSE 73; RESP 16; TEMP 37.1; O2SAT 96
[2021-08-19 05:44] LABS: Basophils % 0.7 %; Eosinophils # 0.3 10^3/uL (0.0-0.8); Eosinophils % 5.7 %; Hematocrit 30.2 % (37.0-47.0); Hemoglobin 9.7 g/dL (11.5-15.3); Lymphocytes # 1.1 10^3/uL (0.8-4.8); Lymphocytes % 18.5 %; Mean Corpuscular HGB Conc 32.1 g/dL (30.0-36.0); Mean Corpuscular Hemoglobin 30.7 pg (28.0-34.0); Mean Corpuscular Volume 95.6 fl (81-99); Mean Platelet Volume 10.1 fL (7.4-10.4); Monocytes # 0.5 10^3/uL (0.2-0.9); Monocytes % 8.7 %; Neutrophils # 3.94 10^3/uL (1.8-7.7); Neutrophils % 66.1 %; Nucleated Red Blood Cells % 0 %; Platelet Count 321 10^3/cmm (130-400); Red Blood Count 3.16 10^6/uL (4.1-5.3); Red Cell Distribution Width 15.4 % (12.1-15.1)
[2021-08-19 06:05] LABS: Digoxin 1.9 ng/mL (0.6-1.2)
[2021-08-19 06:10] LABS: Alanine Aminotransferase 13 U/L (0-33); Albumin Level 3.2 g/dL (3.5-5.2); Alkaline Phosphatase 125 IU/L (35-105); Anion Gap 13.4 (5-19); Aspartate Amino Transferase 14 U/L (0-32); Blood Urea Nitrogen 24 mg/dL (8-23); Calcium 7.2 mg/dL (8.5-10.5); Carbon Dioxide 22 mmol/L (22-29); Chloride 105 mmol/L (98-107); Glucose 88 mg/dL (65-115); Osmolality Calculated 287 mOsm/kg (285-295); Potassium 3.4 mmol/L (3.5-5.1); Sodium 137 mmol/L (136-145); Total Bilirubin 0.2 mg/dL (0.15-1.2); Total Protein 5.2 g/dL (6.6-8.7)
[2021-08-19 07:56] VITALS: BP 113/60; PULSE 70; RESP 13; TEMP 36.9; O2SAT 97
[2021-08-19] MEDS: primidone 50 mg Tablet PO (08:21)
[2021-08-19] MEDS: clopidogrel 75 mg Tablet PO (08:21)
[2021-08-19] MEDS: ferrous sulfate EC 325 mg Tablet PO (08:21)
[2021-08-19] MEDS: pantoprazole DR 40 mg Tablet PO (08:21)
[2021-08-19] MEDS: atorvastatin 40 mg Tablet 20 MG PO (08:22)
[2021-08-19] MEDS: potassium chloride ER 20 mEq Tablet PO (08:22)
[2021-08-19 09:18] VITALS: PULSE 67; RESP 18; O2SAT 98
--- NOTE | 2021-08-19 14:57 | PC.NURSE ---
This nurse spoke with Dr. Wallace to verify why patient needed a follow up appointment with [facility] after discharge. Dr. Wallace said it was due to medication changes and him being unsure if the Aircraft Worker needed to replace the medications he took her off. Patient had two different medications stopped during this stay.
--- NOTE | 2021-08-19 20:52 | P.DS_ITS ---
Discharge Providers Date of Admission: 08/17/21 15:37 Date of Discharge: August 19, 2021 Attending Provider at Admission: Chelsea Herr MD Attending Provider at Discharge: Reji Wallace Primary Care Provider: Laith Patel Diagnoses at Discharge Discharge Diagnosis (1) Hypotension: Status: Acute (2) UTI (urinary tract infection): Status: Acute Permanent problem details: 08/02/2021 - E. coli x2 species (3) Nausea and vomiting: Status: Acute Qualifiers: Vomiting type: bilious vomiting Qualified Code(s): R11.14 - Bilious vomiting (4) Acute kidney injury: Status: Acute (5) Digoxin toxicity: Status: Acute Qualifiers: Encounter type: initial encounter Injury intent: accidental or unintentional Qualified Code(s): T46.0X1A - Poisoning by cardiac-stimulant glycosides and drugs of similar action, accidental (unintentional), initial encounter (6) Anemia: Status: Chronic Qualifiers: Anemia type: iron deficiency Iron deficiency anemia type: other iron deficiency Qualified Code(s): D50.8 - Other iron deficiency anemias (7) COPD (chronic obstructive pulmonary disease): Status: Chronic Qualifiers: COPD type: emphysema Emphysema type: centrilobular Qualified Code(s): J43.2 - Centrilobular emphysema (8) Postural orthostatic tachycardia syndrome: Status: Chronic Reason for Visit Reason for Visit: RLQ PAIN, NAUSEA X 3 DAYS Hospital Course Hospital Course Pleasant 75-year-old lady was placed observation in the hospital after presenting with nausea, vomiting, unable to take or keep down solid or liquid, also with right lower quadrant pain. Was kept on bowel rest, received IV hydration. CT abdomen pelvis on presentation showed colitis and colonic distention improved compared to prior, air-fluid levels in the colon have resolved. Noted mild bilateral pelvocaliectasis and ureterectasis without obstructive calculi. Additional small locules of air within bladder wall seen coronal imaging, recommended correlation for emphysematous cystitis. With consideration for UTI additionally suggested by UA was started on ceftriaxone. Urine culture eventually growing E. coli resistant to Augmentin, Unasyn, Cipro, Levaquin, intermediate to Zosyn, resistant to tetracycline. She will complete course with cefdinir at also with noted acute kidney injury discharge. Acute kidney injury on chronic kidney disease on presentation, creatinine as high as 2.5. Gradually decreased today down to 1.4. With supratherapeutic digoxin level, possibly contributing to nausea vomiting symptoms, with digoxin level decreasing gradually, creatinine at 1.9. Unclear reason of why she is on digoxin, also as documented in cardiology notes, this medication is currently discontinued. During hospitalization also noted episode of hypotension overnight, blood pressure as low as 74/36, received fluid boluses, with improvement in blood pressure, metoprolol and diltiazem held. Blood pressures improved, metoprolol resumed at small dose 12.5 mg, however, diltiazem is not resumed at this time until blood pressures can be reassessed and need for this medication also confirmed. She is asked to follow-up with cardiology in office. Today she is feeling much better, she is not bothered by any abdominal pain. No nausea or vomiting, she is tolerating oral intake. Request to return home. Physical Exam Const: COMMON NORMALS: no acute distress and patient oriented x3 HENMT: COMMON NORMALS: oropharynx normal Neck/C-Spine: COMMON NORMALS: no JVD Resp: COMMON NORMALS: normal respiratory effort and clear to auscultation bilaterally AUSCULTATION: clear to auscultation bilaterally Cardio: COMMON NORMALS: no JVD, regular rhythm, S1 normal heart sound present, S2 normal heart sound present and No murmurs present (Cardio) RHYTHM: regular rhythm HEART SOUNDS: S1 normal heart sound present and S2 normal heart sound present GI: COMMON NORMALS: Normal to inspection, nondistended, normoactive bowel sounds present, Soft to palpation and non-tender PALPATION: Yes Soft to palpation Extremity: COMMON NORMALS: no joint enlargement and no pedal edema Neuro: COMMON NORMALS: patient oriented x3 and moves all extremities Skin: COMMON NORMALS: no rashes or lesions noted GENERAL SKIN EXAM: no rashes or lesions noted Urinary Catheter Management: Pacheco: Cath Placed During This Visit: yes Reason for Continuing Indwelling Catheter: Acute Urinary Retention or Obstruction Urinary Catheter Date of Insertion: 08/17/21 Urinary Catheter Time of Insertion: 14:43 Discharge Data Studies Completed and Pending Completed Studies During Hospitalization Category Date Time Status CT abdomen pelvis wo con [id number] Urgent Cat Scan 08/17/21 10:57 Completed Pending at discharge Category Date Time Status Blood Culture Stat Lab 08/17/21 12:39 Results Radiology Impressions Abdomen/Pelvis CT 08/17/21 10:57 IMPRESSION: 1. Previously described colitis with colonic distention appears improved compared to previous. Air-fluid levels in the colon have resolved. No evidence of small or large bowel obstruction. 2. Mild bilateral pelvocaliectasis and ureterectasis is new compared to previous. No obstructing calculi. Recommend correlation for UTI. 3. Urinary distended bladder with air-fluid level. Recommend correlation with recent instrumentation. 4. Additional small locules of air within the bladder wall best seen on the coronal imaging. Recommend correlation for emphysematous cystitis. 5. Hepatomegaly with cholecystectomy. 6. No pneumatosis or free air. 7. No other significant changes compared to previous. Notified KANE Short at 08/17/2021 12:43 PM. Laboratory Results WBC 6.0 10^3/uL (4.0-10.0) 08/19/21 05:04 RBC 3.16 10^6/uL (4.1-5.3) L 08/19/21 05:04 Hgb 9.7 g/dL (11.5-15.3) L 08/19/21 05:04 Hct 30.2 % (37.0-47.0) L 08/19/21 05:04 MCV 95.6 fl (81-99) 08/19/21 05:04 MCH 30.7 pg (28.0-34.0) 08/19/21 05:04 MCHC 32.1 g/dL (30.0-36.0) 08/19/21 05:04 RDW 15.4 % (12.1-15.1) H 08/19/21 05:04 Plt Count 321 10^3/cmm (130-400) 08/19/21 05:04 MPV 10.1 fL (7.4-10.4) 08/19/21 05:04 Neut % (Auto) 66.1 % 08/19/21 05:04 Lymph % (Auto) 18.5 % 08/19/21 05:04 Swain % (Auto) 8.7 % 08/19/21 05:04 Eos % (Auto) 5.7 % 08/19/21 05:04 Baso % (Auto) 0.7 % 08/19/21 05:04 Neut # (Auto) 3.94 10^3/uL (1.8-7.7) 08/19/21 05:04 Lymph # (Auto) 1.1 10^3/uL (0.8-4.8) 08/19/21 05:04 Swain # (Auto) 0.5 10^3/uL (0.2-0.9) 08/19/21 05:04 Eos # (Auto) 0.3 10^3/uL (0.0-0.8) 08/19/21 05:04 Baso # (Auto) 0.0 10^3/uL (0.0-0.1) 08/19/21 05:04 Nucleated RBC % (auto) 0 % 08/19/21 05:04 Nucleated RBCs # 0.0 /100WBC 08/19/21 05:04 Sodium 137 mmol/L (136-145) 08/19/21 05:04 Potassium 3.4 mmol/L (3.5-5.1) L 08/19/21 05:04 Chloride 105 mmol/L (98-107) 08/19/21 05:04 Carbon Dioxide 22 mmol/L (22-29) 08/19/21 05:04 Anion Gap 13.4 (5-19) 08/19/21 05:04 BUN 24 mg/dL (8-23) H 08/19/21 05:04 Creatinine 1.4 mg/dL (0.5-0.9) H 08/19/21 05:04 GFR Calculation Not Reportable 08/19/21 05:04 Glucose 88 mg/dL (65-115) 08/19/21 05:04 Calculated Osmolality 287 mOsm/kg (285-295) 08/19/21 05:04 Lactic Acid 1.8 mmol/L (0.5-2.2) 08/17/21 11:30 Calcium 7.2 mg/dL (8.5-10.5) L 08/19/21 05:04 Phosphorus 3.6 mg/dL (2.5-4.5) 08/18/21 01:30 Magnesium 1.8 mg/dL (1.7-2.3) 08/18/21 01:30 Total Bilirubin 0.2 mg/dL (0.15-1.2) 08/19/21 05:04 AST 14 U/L (0-32) 08/19/21 05:04 ALT 13 U/L (0-33) 08/19/21 05:04 Alkaline Phosphatase 125 IU/L (35-105) H 08/19/21 05:04 Total Protein 5.2 g/dL (6.6-8.7) L 08/19/21 05:04 Albumin 3.2 g/dL (3.5-5.2) L 08/19/21 05:04 Globulin 2.0 g/dL (1.3-4.6) 08/19/21 05:04 Lipase 21 U/L (13-60) 08/17/21 10:54 Urine Color Yellow (Yellow) 08/17/21 13:50 Urine Appearance Hazy (CLEAR) A 08/17/21 13:50 Urine pH 5 (5-7) 08/17/21 13:50 Ur Specific [place] 1.015 (1.005-1.030) 08/17/21 13:50 Urine Protein Neg (Negative) 08/17/21 13:50 Urine Glucose (UA) Norm (Normal) 08/17/21 13:50 Urine Ketones Negative (Negative) 08/17/21 13:50 Urine Blood Neg (Negative) 08/17/21 13:50 Urine Nitrate Negative (Negative) 08/17/21 13:50 Urine Bilirubin Neg (Negative) 08/17/21 13:50 Urine Urobilinogen Neg mg/dL (Negative) 08/17/21 13:50 Ur Leukocyte Esterase Trace (Negative) H 08/17/21 13:50 Urine RBC Rare /hpf (0-2) 08/17/21 13:50 Urine WBC 5-10 /hpf (0-5) H 08/17/21 13:50 Ur Squamous Epith Cells 0-4 /hpf (0-5) H 08/17/21 13:50 Amorphous Sediment Not Reportable 08/17/21 13:50 Urine Bacteria 4+ /hpf (NONE) H 08/17/21 13:50 Digoxin 1.9 ng/mL (0.6-1.2) H 08/19/21 05:04 Vitals Last Vital Signs Temp 98.4 F 08/19/21 07:56 Pulse 67 08/19/21 09:18 Resp 18 08/19/21 09:18 BP 113/60 08/19/21 07:56 Pulse Ox 98 08/19/21 09:18 Discharge Plan Discharge Patient Disposition: Home Condition: Stable Prescriptions: New cefdinir 300 mg capsule 300 mg PO BID 5 Days Qty: 10 0RF Continued simvastatin 20 mg tablet 20 mg PO DAILY 0RF primidone 50 mg tablet 50 mg PO BID 0RF amitriptyline 25 mg tablet 25 mg PO BEDTIME 0RF nitroglycerin 0.4 mg tablet, sublingual 0.4 mg sublingual PRN PRN (Reason: Chest Pain) 0RF ferrous sulfate [FeroSul] 325 mg (65 mg iron) tablet 325 mg PO BID 0RF metoprolol succinate 25 mg tablet extended release 24 hr 12.5 mg PO DAILY 0RF isosorbide dinitrate 5 mg tablet 2.5 mg PO BID 0RF Hold Instructions: Resume on 07/20/21. hold until follow up with cardiology tizanidine 4 mg tablet 4 mg PO Q6H PRN (Reason: Spasms) 0RF clopidogrel [Plavix] 75 mg Tablet 75 mg PO DAILY 0RF Hold Instructions: Resume on 08/10/21. omeprazole 40 mg Capsule,Delayed Release(Dr/Ec) 40 mg PO DAILY 0RF Phospha 250 Neutral 250 mg tablet 1 tab PO BID Qty: 4 0RF potassium chloride 20 mEq tablet extended release 20 meq PO DAILY Qty: 20 0RF Discontinued digoxin 125 mcg (0.125 mg) tablet 125 mcg PO DAILY 0RF diltiazem HCl 60 mg capsule,extended release 12 hr 60 mg PO BID 0RF Hold Instructions: Resume on 07/20/21. hold until follow up with cardiology triamterene-hydrochlorothiazid 37.5-25 mg Tablet 1 tab PO DAILY 0RF Discharge Orders: Discharge Order (Routine); Ordered 08/19/21 Ordered By: Reji Wallace Referrals: Rae Ruff FNP [Nurse Practitioner] - 08/30/21 9:00 am (Med changes after hypotension, supratherapeutic dig, yina) Laith Patel DO [Primary Care Provider] - 08/24/21 9:30 am Discharge Diet: Cardiac Discharge Activity: Increase activity as tolerated Patient Instructions: How to Stop Smoking (GEN), Acute Kidney Injury (GEN), Urinary Tract Infection in Women (GEN), Cigarette Smoking and Your Health (GEN), Anemia (GEN) Activity Restrictions/Additional Instructions: Please have your primary doctor recheck hemoglobin at next visit in 4-7 days to reassess anemia. Please have them also assess kidney function due to acute kidney injury at presentation. This has been gradually improving. Avoid any medications that can injure kidneys, including NSAIDs Vicoprofen, Aleve, etc. Discussed with your primary doctor consideration of follow-up with nephrology specialist. Complete antibiotic course for urinary tract infection (E. coli). Please note digoxin is discontinued due to toxic level on presentation. 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 Please stop smoking. Continued smoking will need to further deterioration of your lung function, additional risk of heart attack, stroke, cancer and other adverse health effects. Due to episode of low blood pressure in the hospital, please stop triamterene- HCTZ. Stop also on diltiazem. Cautiously resume low-dose metoprolol, measure blood pressures twice a day. If top blood pressure numbers less than 100, bottom number less than 60 or heart rate is less than 50, do not take metoprolol. Discharge Attestations Time Spent in Discharge Care*: greater than 30 min Quality Metrics Clinical Quality Measures [ No reported AMI, CVA or VTE this stay] Coding Level of Care Code Acute Chg FW DC note Diagnoses Hypotension I95.9 UTI (urinary tract infection) N39.0 Nausea and vomiting R11.14 Vomiting type: bilious vomiting Acute kidney injury N17.9 Digoxin toxicity T46.0X1A Encounter type: initial encounter Injury intent: accidental or unintentional Anemia D50.8 Anemia type: iron deficiency Iron deficiency anemia type: other iron deficiency COPD (chronic obstructive pulmonary disease) J43.2 COPD type: emphysema Emphysema type: centrilobular Postural orthostatic tachycardia syndrome I49.8
== END 2021-08-19 16:01 | disposition home or self-care (01) ==
LOC: ER 13:24 → MEDSURG 16:26
PROVIDERS: Internal Medicine; Physician Assistant; Admitting Provider Hospitalist; Emergency Provider Family Medicine; PCP Family Medicine; Visit Provider Internal Medicine
DX: R11.14 Bilious vomiting (principal); I95.9 Hypotension, unspecified; N39.0 Urinary tract infection, site not specified; N17.9 Acute kidney failure, unspecified; T46.0X1A Poisoning by cardiac-stimulant glycosides and drugs of similar action, accidental (unintentional), initial encounter; D50.8 Other iron deficiency anemias; J43.2 Centrilobular emphysema; I49.8 Other specified cardiac arrhythmias; E78.5 Hyperlipidemia, unspecified; I12.9 Hypertensive chronic kidney disease with stage 1 through stage 4 chronic kidney disease, or unspecified chronic kidney disease; N18.9 Chronic kidney disease, unspecified; I25.10 Atherosclerotic heart disease of native coronary artery without angina pectoris; F17.210 Nicotine dependence, cigarettes, uncomplicated
CPT/HCPCS: 36415; 51702; 74176; 80048; 80053; 80162; 81001; 83605; 83690; 83735; 84100; 85025; 87040; 87077; 87086; 87186; 93005; 96365; 96366; 96367; 96375; 99285; G0378; J0696; J2270; J2405; J7030; J7040

== ENCOUNTER → 2021-08-30 09:09 | Outpatient (BNVA) | payer MEDICARE, MEDICAID, SELFPAY | PROVIDERS: PCP Family Medicine; Visit Provider Nurse Practitioner Family | DX: R00.2 Palpitations (principal); F17.210 Nicotine dependence, cigarettes, uncomplicated; I25.110 Atherosclerotic heart disease of native coronary artery with unstable angina pectoris; J44.9 Chronic obstructive pulmonary disease, unspecified | CPT/HCPCS: 99214 ==

== ENCOUNTER 2023-07-07 13:55 | Emergency (ER) | payer MEDICARE, MEDICAID, SELFPAY ==
[2023-07-07 14:02] VITALS: BP 181/83; PULSE 74; RESP 15; O2SAT 99; BMI 20.2
--- NOTE | 2023-07-07 14:03 | CT_ITS ---
WS: [id number] CT HEAD NONCONTRAST HISTORY: Sudden vision loss TECHNIQUE: Contiguous axial imaging performed through the brain in 2.5 mm imaging. Bone and soft tiss ue windows. Sagittal and coronal reformats reviewed. All CT scans at [facility] use at least one of these dose optimization techniques: automated exposure control; mA and/or kV adjustment per pa tient size (includes targeted exams where dose is matched to clinical indication); or iterative recon struction. DLP: 939.54 mGy.cm COMPARISON: 07/30/2021 No acute intracranial hemorrhage, midline shift or mass effect. Moderate atrophy is reidentified. Progression of small vessel ischemic changes and new lacunar infarc ts are present since 2021. There is a new lacunar infarct which is into the anterior horn of the LEFT lateral ventricle. New lacunar infarct external capsule on the RIGHT and RIGHT thalamus. Decreased a ttenuation in the shavon. Ventricles: Normal size with no hydrocephalus. Paranasal sinuses: As visualized are clear. Mastoid air cells: Well pneumatized. Calvarium and scalp: Skull is intact with no soft tissue edema or swelling. IMPRESSION: 1. No acute intracranial hemorrhage or edema. 2. Progression of lacunar infarcts and small vessel ischemic disease since 07/30/2021. 3. 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
--- NOTE | 2023-07-07 14:04 | ECG_ITS ---
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 Measurements Intervals [place] Rate: 68 P: 51 AL: 152 QRS: 1 QRSD: 82 T: 34 QT: 402 QTc: 428 Interpretive Statements SINUS RHYTHM POSSIBLE RIGHT VENTRICULAR CONDUCTION DELAY [RSR (QR) IN V1/V2] NONSPECIFIC T-WAVE ABNORMALITY Compared to ECG 08/17/2021 10:47:48 T-wave abnormality now present Left-axis deviation no longer present Myocardial infarct finding no longer present ST (T wave) deviation no longer present Electronically Signed On 07-07-2023 16:33:28 REPAIR SERVICER by Juan Diego Cueto M.D. [email or web address]
--- NOTE | 2023-07-07 14:07 | ED_ITS ---
HPI - General Adult 2 General: Chief complaint: Eye Problems Stated complaint: vision issues/ possible stroke Time Seen by Provider: 07/07/23 13:58 History of Present Illness: 77-year-old female presents to the emerg ency department via EMS personnel. Patient states that 3 days ago she woke up at approximately 8 AM in the morning and noticed that she could not see out of her right eye and her left eye was blurry. She states that at that time she did not seek medical evaluation but earlier this morning was seen by her eye doctor and advised to come to the emergency department to be evaluated for possible stroke. Patient states that she has no other symptoms but is unable to still see out of her right eye. She states her vision is still blurry to the left eye. She denies headache nausea or vomiting. She states she does have a history of hypertension. EMS personnel state that their initial blood pressure reading demonstrated a systolic of over 200. The patient denies chest pain dizziness or lightheaded feeling. She denies weakness or balance issues. She denies eye pain. She denies known injury or trauma. She also denies recent falls. Review of Systems 2 General: Reports: 10 or more systems reviewed and unremarkable except in HPI and below Eyes: Reports: change in vision and blurry vision PFSH ED 2 PFSH: Medical History Acute upper gastrointestinal bleeding (~06/2021) required transfusion 3 units pRBCs Anemia Bacteremia due to Escherichia coli (~08/2019) Chronic kidney disease COPD (chronic obstructive pulmonary disease) Coronary artery disease Digoxin toxicity History of echocardiogram 09/10/2019 EF 69%, I/IV diastolic dysfunction History of Holter monitoring 05/2020 baseline rhythm sinus, 74 bpm, no arrhythmias History of hypertension in past History of stress test 08/2020 normal myocardial perfusion imaging, no ekg changes Hyperlipidemia Hypotension Postural orthostatic tachycardia syndrome Surgical History H/O esophagogastroduodenoscopy (07/30/21) Duodenitis H/O ventral hernia repair History of 3 sections History of appendectomy History of cardiac catheterization 2020 - moderate mid circumflex and LAD lesions though not significant by FFR Status post colonoscopy (07/30/21) Diverticulosis Status post laparoscopic cholecystectomy (04/14/21) Status post right inguinal hernia repair Family History Father Stroke Denies family history of Diabetes CAD (coronary artery disease) Family history of premature coronary artery disease Social History Smoking and tobacco/nicotine status: current some day tobacco/nicotine user cigarettes Packs smoked per day: 1.5 Years cigarettes smoked: 57 Quit status (tobacco/nicotine): not considering quitting Alcohol intake: never Substance/Drug Use: never Lives independently: Yes Household members: spouse Marital status: Current occupational status: retired Do you think of yourself as: Straight/Heterosexual Current gender identity: Female Physical Exam 2 Narrative: EXAM NARRATIVE: Constitutional: the patient appears well nourished and with normal development. Vital signs reviewed as documented. HENMT: Normocephalic, atraumatic. External ears normal appearance without drainage. Nose without drainage, normal appearance. Mucus membranes moist. Neck is supple, No jugular venous distension, trachea is midline, no appreciable carotid bruits. No lymphadenopathy. No meningeal signs. Flexion, extension and lateral rotation is without pain. Eyes: OD-no light perception noted. OS-20/400. no scleral icterus. Extra-ocular movement are intact. Thorax is symmetrical and with equal rise and fall with respirations. Resp: Lungs are clear to auscultation. No wheezes, rales, crackles or ronchi at present. Cardio: Regular rate and rhythm. Positive S1, S2. No appreciable murmurs, rubs or gallops. GI: Abdominal exam reveals normal bowel sounds to all quadrants. No organomegaly. No obvious palpable masses noted. No hepatomegally appreciated. Soft, non-tender to palpation. Extremity: Extremities are non-edematous and both femoral and pedal pulses are 2+ and equal bilaterally. Moves all extremities well, sensation in all extremities. Neuro: Alert and oriented x4, person, place, time and situation. Cranial nerves II through XII are grossly intact, there is no focal neurological deficits that I can appreciate at present. Motor strength in the upper and lower extremities are equal and bilateral 5/5. No pupillary light reaction to the right eye. See documentation under eyes Psych: Cooperative, calm, normal thought process, appropriate judgment. Skin: No lesions, rashes. No gross abnormalities noted. Back: Symmetrical, no obvious deformity, No CVA tenderness Course 2 Reevaluation(s): Reevaluation #1: I had an extensive discussion with the patient and her family member in the room about the need for additional evaluation and admission to the hospital and the patient stated that she does not want to be admitted to the hospital does not want any additional evaluation. She states that she will follow-up with her primary care provider. I did again address the new CT scan findings as well as her current continued vision loss and she stated that she still wanted to be discharged. I did advise her that I would prescribe her antibiotics for her urinary tract infection and she stated that would be fine and she would pick those up at her pharmacy. I also advised her that requesting to be discharged without additional evaluation has significant risk and possible complications and the patient verbalized understanding of all the risk and complications and stated that she would return to the emergency department if she felt she had any additional changes. I discussed the patient's extremely low blood sodium level as well as her worsening kidney function and she verbalized understanding of all information was able to paraphrase the information back to me and stated she would follow-up with her primary care provider.. Time: 16:33 Vital Signs: Vital signs: Vital Signs Pulse Rate 78 07/07/23 16:05 Respiratory Rate 16 07/07/23 16:05 Blood Pressure 187/69 07/07/23 16:05 Pulse Oximetry 98 07/07/23 16:05 Oxygen Delivery Me thod Room Air 07/07/23 14:45 MDM - General Adult Medical Decision Making 77-year-old female presents via EMS personnel after being seen by her eye doctor for concern of complete vision loss 3 days ago to the right eye. I will obtain a CT scan without contrast as the patient is allergic to iodine, I will also obtain a CBC, CMP EKG chest x-ray urinalysis for additional evaluation. Differential Diagnosis Retinal artery thrombus/occlusion, retinal detachment Medical Records I reviewed the patient's medical records. Lab Data I reviewed the patient's lab results. 07/07/23 15:18 07/07/23 15:18 Laboratory Results WBC 5.48 10^3/uL (3.29-11.43) 07/07/23 15:18 RBC 3.01 10^6/uL (3.85-5.65) L 07/07/23 15:18 Hgb 10.10 g/dL (11.27-16.99) L 07/07/23 15:18 Hct 30.3 % (36-47) L 07/07/23 15:18 MCV 100.7 fl (85-98) H 07/07/23 15:18 MCH 33.6 pg (27-33) H 07/07/23 15:18 MCHC 33.3 g/dL (30-55) 07/07/23 15:18 RDW 12.1 % (12.1-15.1) 07/07/23 15:18 Plt Count 355 10^3/cmm (157-399) 07/07/23 15:18 MPV 9.4 fL (7.4-10.4) 07/07/23 15:18 Neut % (Auto) 68.4 % 07/07/23 15:18 Lymph % (Auto) 23.0 % 07/07/23 15:18 [place] % (Auto) 5.3 % 07/07/23 15:18 Eos % (Auto) 2.2 % 07/07/23 15:18 Baso % (Auto) 0.9 % 07/07/23 15:18 Neut # (Auto) 3.75 10^3/uL (1.8-7.7) 07/07/23 15:18 Lymph # (Auto) 1.3 10^3/uL (0.8-4.8) 07/07/23 15:18 [place] # (Auto) 0.3 10^3/uL (0.2-0.9) 07/07/23 15:18 Eos # (Auto) 0.1 10^3/uL (0.0-0.8) 07/07/23 15:18 Baso # (Auto) 0.1 10^3/uL (0.0-0.1) 07/07/23 15:18 Nucleated RBC % (auto) 0 % 07/07/23 15:18 Nucleated RBCs # 0.0 /100WBC 07/07/23 15:18 PT 13.30 SECONDS (12.1-14.9) 07/07/23 15:18 INR 0.98 (0.8-1.2) 07/07/23 15:18 APTT 28.8 SECONDS (23.9-36.7) 07/07/23 15:18 Sodium 128 mmol/L (136-145) L 07/07/23 15:18 Potassium 3.9 mmol/L (3.5-5.1) 07/07/23 15:18 Chloride 95 mmol/L (98-107) L 07/07/23 15:18 Carbon Dioxide 20 mmol/L (22-29) L 07/07/23 15:18 Anion Gap 16.9 (5-19) 07/07/23 15:18 BUN 14 mg/dL (8-23) 07/07/23 15:18 Creatinine 1.7 mg/dL (0.5-0.9) H 07/07/23 15:18 GFR Calculation Not Reportable 07/07/23 15:18 Glucose 80 mg/dL (65-115) 07/07/23 15:18 Calculated Osmolality 265 mOsm/kg (285-295) L 07/07/23 15:18 Calcium 8.0 mg/dL (8.5-10.5) L 07/07/23 15:18 Total Bilirubin 0.2 mg/dL (0.15-1.2) 07/07/23 15:18 AST 12 U/L (0-32) 07/07/23 15:18 ALT < 5 U/L (0-33) 07/07/23 15:18 Alkaline Phosphatase 156 U/L (35-105) H 07/07/23 15:18 Troponin T Baseline 17 ng/L (0-10) H 07/07/23 15:18 Total Protein 6.9 g/dL (6.6-8.7) 07/07/23 15:18 Albumin 4.1 g/dL (3.5-5.2) 07/07/23 15:18 Globulin 2.8 g/dL (1.3-4.6) 07/07/23 15:18 Urine Color Yellow (Yellow) 07/07/23 15:32 Urine Appearance Hazy (CLEAR) A 07/07/23 15:32 Urine pH 5 (5-7) 07/07/23 15:32 Ur Specific [place] 1.010 (1.005-1.030) 07/07/23 15:32 Urine Protein 1+ (Negative) H 07/07/23 15:32 Urine Glucose (UA) Norm (Normal) 07/07/23 15:32 Urine Ketones Negative (Negative) 07/07/23 15:32 Urine Blood Neg (Negative) 07/07/23 15:32 Urine Nitrate Negative (Negative) 07/07/23 15:32 Urine Bilirubin Neg (Negative) 07/07/23 15:32 Urine Urobilinogen Neg mg/dL (Negative) 07/07/23 15:32 Ur Leukocyte Esterase 2+ (Negative) H 07/07/23 15:32 Urine RBC Rare /hpf (0-2) 07/07/23 15:32 Urine WBC 40-55 /hpf (0-5) H 07/07/23 15:32 Ur Squamous Epith Cells 5-10 /hpf (0-5) H 07/07/23 15:32 Amorphous Sediment Not Reportable 07/07/23 15:32 Urine Bacteria 3+ /hpf (NONE) H 07/07/23 15:32 All radiology interpretation(s) finalized by discharge EKG Data EKG 1: Interpretation: EKG obtained at 1432 and reviewed at 1432 demonstrates sinus rhythm with a ventricular rate of 68 bpm, MD interval 152, QRS 82, QT 402, QTc 419 at present there is no ST elevation or depression to demonstrate acute ischemia or infarction. EKG 2: Interpretation: Twelve-lead EKG obtained at 1611 and reviewed at 1613 demonstrates sinus rhythm with a ventricular rate of 74 bpm, MD interval 155, QRS duration 78, QT 383, QTc [address] elevation or depression to demonstrate acute ischemia or infarction at present. Discharge Plan Discharge Patient Disposition: Home Clinical Impression: Vision loss of right eye, Acute hyponatremia, UTI (urinary tract infection) Condition: Stable Prescriptions: New Macrobid 100 mg capsule 100 mg PO Q12H 7 Days Qty: 14 0RF Rx Instructions: must administer with a meal/food No Action simvastatin 20 mg tablet 20 mg PO DAILY primidone 50 mg tablet 50 mg PO BID amitriptyline 25 mg tablet 25 mg PO BEDTIME nitroglycerin 0.4 mg tablet, sublingual 0.4 mg sublingual PRN PRN (Reason: Chest Pain) ferrous sulfate [FeroSul] 325 mg (65 mg iron) tablet 325 mg PO BID metoprolol succinate 25 mg tablet extended release 24 hr 12.5 mg PO DAILY isosorbide dinitrate 5 mg tablet 2.5 mg PO BID Hold Instructions: Resume on 07/20/21. hold until follow up with cardiology tizanidine 4 mg tablet 4 mg PO Q6H PRN (Reason: Spasms) Phospha 250 Neutral 250 mg tablet 1 tab PO BID Qty: 4 0RF potassium chloride 10 mEq tablet extended release 10 meq PO DAILY dexlansoprazole 60 mg capsule,biphase delayed releas 60 mg PO DAILY Discharge Orders: Discharge ED (Routine); Ordered 07/07/23 Ordered By: Serg Ritetr Referrals: Laith Patel DO [Primary Care Provider] - Discharge Diet: Advance as tolerated Discharge Activity: Resume usual activity Patient Instructions: Opioid Safety, Pain Management Activity Restrictions/Additional Instructions: Activity Restrictions/Additional Instructions: Thank you for choosing [facility] for your healthcare needs today. Please realize that you were seen in the Emergency Department and that we are providing you with an emergency medical screening exam and this may not be a complete and all inclusive of all the testing and or medical work-up that you may need to determine your ailment or severity of your illness. It is very important that you follow-up as instructed with your Primary care provider or Specialist for additional evaluation and to discuss your medical treatment plan. You may return to the Emergency Department should you have concerns or if your condition changes or worsens in any way. Coding Level of Care Code ED Senior Publications Specialist for [employer]
--- NOTE | 2023-07-07 14:17 | PC.NURSE ---
per Dr. [facility] pt visual acuity today: VA OD: scNLP (without correction right eye no light perception) VA OS: sc20/400 PHNI (without correction pinhole no improvement)
[2023-07-07 14:45] VITALS: BP 175/96; PULSE 68; RESP 14; O2SAT 94
[2023-07-07 15:26] LABS: Basophils # 0.1 10^3/uL (0.0-0.1); Basophils % 0.9 %; Eosinophils # 0.1 10^3/uL (0.0-0.8); Eosinophils % 2.2 %; Hematocrit 30.3 % (36-47); Lymphocytes # 1.3 10^3/uL (0.8-4.8); Mean Corpuscular HGB Conc 33.3 g/dL (30-55); Mean Corpuscular Hemoglobin 33.6 pg (27-33); Mean Corpuscular Volume 100.7 fl (85-98); Mean Platelet Volume 9.4 fL (7.4-10.4); Monocytes # 0.3 10^3/uL (0.2-0.9); Monocytes % 5.3 %; Neutrophils # 3.75 10^3/uL (1.8-7.7); Neutrophils % 68.4 %; Nucleated Red Blood Cells % 0 %; Platelet Count 355 10^3/cmm (157-399); Red Blood Count 3.01 10^6/uL (3.85-5.65); Red Cell Distribution Width 12.1 % (12.1-15.1); White Blood Count 5.48 10^3/uL (3.29-11.43)
[2023-07-07 15:39] LABS: INR 0.98 (0.8-1.2); Partial Thromboplastin Time 28.8 SECONDS (23.9-36.7)
[2023-07-07 15:43] LABS: Alanine Aminotransferase < 5 U/L (0-33); Albumin Level 4.1 g/dL (3.5-5.2); Alkaline Phosphatase 156 U/L (35-105); Anion Gap 16.9 (5-19); Aspartate Amino Transferase 12 U/L (0-32); Blood Urea Nitrogen 14 mg/dL (8-23); Carbon Dioxide 20 mmol/L (22-29); Chloride 95 mmol/L (98-107); Globulin 2.8 g/dL (1.3-4.6); Glucose 80 mg/dL (65-115); Osmolality Calculated 265 mOsm/kg (285-295); Potassium 3.9 mmol/L (3.5-5.1); Sodium 128 mmol/L (136-145); Total Bilirubin 0.2 mg/dL (0.15-1.2); Total Protein 6.9 g/dL (6.6-8.7)
[2023-07-07 15:44] LABS: Troponin(5th) Baseline 17 ng/L (0-10)
[2023-07-07 16:02] LABS: Add Urine Culture? Yes; Add Urine Microscopic? YES; Bacteria Urine 3+ /hpf; Bilirubin Urine Neg (Negative); Blood Urine Neg (Negative); Glucose Urine UA Norm (Normal); Ketones Urine Negative (Negative); Leukocyte Esterase Urine 2+ (Negative); Nitrate Urine Negative (Negative); Protein Urine 1+ (Negative); RBC Urine RARE /hpf (0-2); Urine Appearance Hazy (CLEAR); Urine Color Yellow (Yellow); Urobilinogen Urine Neg (Negative); WBC Urine 40-55 /hpf (0-5); pH Urine 5 (5-7)
[2023-07-07 16:05] VITALS: BP 187/69; PULSE 78; RESP 16; O2SAT 98
--- NOTE | 2023-07-07 16:11 | ECG_ITS ---
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 Measurements Intervals [place] Rate: 74 P: 56 [place]: 155 QRS: -1 QRSD: 78 T: 45 QT: 383 QTc: 427 Interpretive Statements SINUS RHYTHM POSSIBLE RIGHT VENTRICULAR CONDUCTION DELAY [RSR (QR) IN V1/V2] Compared to ECG 07/07/2023 14:32:22 T-wave abnormality no longer present Electronically Signed On 07-07-2023 16:34:07 WASH OIL PUMP OPERATOR by Juan Diego Cueto M.D. [id number]
[2023-07-07 17:04] VITALS: BP 187/69; PULSE 78; RESP 16; O2SAT 98
== END 2023-07-07 17:05 | disposition home or self-care (01) ==
PROVIDERS: Emergency Provider Internal Medicine; PCP Family Medicine
DX: H54.61 Unqualified visual loss, right eye, normal vision left eye (principal); E87.1 Hypo-osmolality and hyponatremia; N39.0 Urinary tract infection, site not specified; Z72.0 Tobacco use; I12.9 Hypertensive chronic kidney disease with stage 1 through stage 4 chronic kidney disease, or unspecified chronic kidney disease; N18.9 Chronic kidney disease, unspecified; J44.9 Chronic obstructive pulmonary disease, unspecified; I25.10 Atherosclerotic heart disease of native coronary artery without angina pectoris; E78.5 Hyperlipidemia, unspecified
CPT/HCPCS: 70450; 80053; 81001; 84484; 85025; 85610; 85730; 87077; 87086; 87186; 93005; 99285

== ENCOUNTER 2024-02-18 15:29 | Emergency (ER) | payer MEDICARE, MEDICAID, SELFPAY ==
--- NOTE | 2024-02-18 15:34 | ECG_ITS ---
[facility] Test Date: 2024-02-18 Pat Name: Maile López Department: Room: Gender: Female Dental Assistant: : 1945 Requested By: Jayshree Mcarthur Order Number: [id number] Summer MD: Juan Diego Cueto M.D. Measurements Intervals [place] Rate: 84 P: 65 [place]: 142 QRS: -7 QRSD: 61 T: 58 QT: 343 QTc: 407 Interpretive Statements SINUS RHYTHM NONSPECIFIC T-WAVE ABNORMALITY Compared to ECG 07/07/2023 16:11:56 T-wave abnormality now present Electronically Signed On 02-19-2024 11:11:34 CDT by Juan Diego Cueto M.D. [id number]
[2024-02-18 15:43] VITALS: BP 158/80; PULSE 87; RESP 18; TEMP 36.6; O2SAT 97; BMI 20.5
--- NOTE | 2024-02-18 15:51 | XRR_ITS ---
PROCEDURE INFORMATION: Exam: XR Chest Exam date and time: 02/18/2024 4:29 PM Age: 78 years old Clinical indication: Chest pressure; Patient HX: Chest pain; Syncope TECHNIQUE: Imaging protocol: Radiologic exam of the chest. Views: 1 view. COMPARISON: CR XR chest 1V portable [id number] 07/31/2021 3:52 AM FINDINGS: Lungs: Unremarkable. No consolidation or mass. Pleural spaces: Unremarkable. No pleural effusion. No pneumothorax. Heart/Mediastinum: Unremarkable. No cardiomegaly. Bones/joints: Unremarkable. XR/XR chest 1V portable [id number] IMPRESSION: No acute findings.
[2024-02-18 16:36] LABS: Basophils % 0.6 %; Eosinophils # 0.4 10^3/uL (0.0-0.8); Eosinophils % 5.6 %; Hematocrit 23.1 % (36-47); Lymphocytes # 1.9 10^3/uL (0.8-4.8); Lymphocytes % 27.2 %; Mean Corpuscular HGB Conc 30.7 g/dL (30-55); Mean Corpuscular Volume 97.5 fl (85-98); Mean Platelet Volume 9.1 fL (7.4-10.4); Monocytes # 0.5 10^3/uL (0.2-0.9); Monocytes % 7.5 %; Neutrophils # 4.08 10^3/uL (1.8-7.7); Neutrophils % 58.7 %; Nucleated Red Blood Cells % 0 %; Platelet Count 538 10^3/cmm (157-399); Red Blood Count 2.37 10^6/uL (3.85-5.65); Red Cell Distribution Width 14.4 % (12.1-15.1); White Blood Count 6.95 10^3/uL (3.29-11.43)
[2024-02-18 16:49] LABS: INR 0.88 (0.8-1.2)
[2024-02-18 16:54] LABS: Alanine Aminotransferase 7 U/L (0-33); Alkaline Phosphatase 167 U/L (35-105); Anion Gap 18.7 (5-19); Aspartate Amino Transferase 13 U/L (0-32); Blood Urea Nitrogen 17 mg/dL (8-23); Calcium 7.8 mg/dL (8.5-10.5); Carbon Dioxide 21 mmol/L (22-29); Chloride 99 mmol/L (98-107); Globulin 2.3 g/dL (1.3-4.6); Glucose 92 mg/dL (65-115); Lipase 229 U/L (13-60); Osmolality Calculated 279 mOsm/kg (285-295); Potassium 4.7 mmol/L (3.5-5.1); Sodium 134 mmol/L (136-145); Total Bilirubin 0.2 mg/dL (0.15-1.2); Total Protein 6.3 g/dL (6.6-8.7)
[2024-02-18 16:56] LABS: Troponin(5th) Baseline 17 ng/L (0-10)
[2024-02-18 16:57] LABS: Creatinine Clr Calc Pharmacy 20.6004
--- NOTE | 2024-02-18 17:51 | ECG_ITS ---
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 Measurements Intervals [place] Rate: 75 P: 59 [place]: 146 QRS: -4 QRSD: 68 T: 60 QT: 370 QTc: 415 Interpretive Statements SINUS RHYTHM Compared to ECG 02/18/2024 15:34:26 T-wave abnormality no longer present Electronically Signed On 02-19-2024 11:13:00 CDT by Juan Diego Cueto M.D. [id number]
[2024-02-18] MEDS: amlodipine 10 mg Tablet PO (18:44)
--- NOTE | 2024-02-18 18:48 | W.ED.ARRPALP ---
HPI - Arrhythmia/Palpitations General: Chief Complaint: Arrhythmia/Palpitations Stated Complaint: Racing heart and collapsed, can't see Time Seen by Provider: 02/18/24 17:46 History of Present Illness: 78-year-old female with prior history of coronary disease. She has seen cardiology in the past, but denies stenting. She presents after having had left-sided chest palpitations and pain, that brought me down at home. Evidently, she got dizzy, and almost fell. The dizziness sensation is gone. Sharp left-sided rib pain has persisted. Pain is worse with movement of her left arm. She is somewhat of a poor historian. Related Data Home Medications Medication Instructions Recorded Confirmed amitriptyline 25 mg tablet 25 mg PO BEDTIME 09/09/19 07/07/23 nitroglycerin 0.4 mg sublingual 0.4 mg sublingual PRN PRN Chest 09/09/19 07/07/23 tablet Pain primidone 50 mg tablet 50 mg PO BID 07/16/20 07/07/23 simvastatin 20 mg tablet 20 mg PO DAILY 01/04/21 07/07/23 ferrous sulfate 325 mg (65 mg 325 mg PO BID 07/09/21 07/07/23 iron) tablet (FeroSul) isosorbide dinitrate 5 mg tablet 2.5 mg PO BID 07/09/21 07/07/23 metoprolol succinate 25 mg 12.5 mg PO DAILY 07/09/21 07/07/23 tablet,extended release 24 hr tizanidine 4 mg tablet 4 mg PO Q6H PRN Spasms 07/30/21 07/07/23 dexlansoprazole 60 mg 60 mg PO DAILY 07/07/23 07/07/23 capsule,biphase delayed release potassium chloride 10 mEq 10 meq PO DAILY 07/07/23 07/07/23 tablet,extended release Previous Rx's Medication Instructions Recorded sodium di- and 1 tab PO BID #4 tabs 08/02/21 monophosphate-potassium phos monobasic 250 mg tablet (Phospha Neutral) Allergies Allergy/AdvReac Type Severity Reaction Status Date / Time iodine Allergy Unknown Verified 02/18/24 15:48 Penicillins Allergy ALGY-Anaphy Verified 02/18/24 15:48 laxis [facility] ED PFSH: Medical History Hypotension History of echocardiogram 09/10/2019 EF 69%, I/IV diastolic dysfunction History of Holter monitoring 05/2020 baseline rhythm sinus, 74 bpm, no arrhythmias History of stress test 08/2020 normal myocardial perfusion imaging, no ekg changes History of hypertension in past Hyperlipidemia Digoxin toxicity Bacteremia due to Escherichia coli (~08/2019) Acute upper gastrointestinal bleeding (~06/2021) required transfusion 3 units pRBCs Coronary artery disease Chronic kidney disease Postural orthostatic tachycardia syndrome COPD (chronic obstructive pulmonary disease) Anemia Surgical History History of cardiac catheterization 2020 - moderate mid circumflex and LAD lesions though not significant by FFR Status post laparoscopic cholecystectomy (04/14/21) H/O ventral hernia repair Status post right inguinal hernia repair H/O esophagogastroduodenoscopy (07/30/21) Duodenitis Status post colonoscopy (07/30/21) Diverticulosis History of appendectomy History of 3 sections Family History Father Stroke Denies family history of Diabetes CAD (coronary artery disease) Family history of premature coronary artery disease Social History Smoking and tobacco/nicotine status: current some day tobacco/nicotine user cigarettes Packs smoked per day: 1.5 Years cigarettes smoked: 57 Quit status (tobacco/nicotine): not considering quitting Alcohol intake: never Substance/Drug Use: never Lives independently: Yes Household members: spouse Marital status: Current occupational status: retired Do you think of yourself as: Straight/Heterosexual Current gender identity: Female Physical Exam Const: COMMON NORMALS: no acute distress GENERAL APPEARANCE: cooperative and frail appearing; not ill appearing HENMT: COMMON NORMALS: normocephalic, atraumatic and Normal external nose present HEAD & SCALP: normocephalic and atraumatic FACE & SINUS: normal facial exam and face symmetric NOSE: Normal external nose present Neck/C-Spine: GENERAL: Yes trachea midline Chest: CHEST: Yes Symmetrical chest wall rise and Yes tenderness (Left lateral chest wall. Reproduces pain) Resp: COMMON NORMALS: normal respiratory effort, No retractions, No use of accessory muscles and clear to auscultation bilaterally AUSCULTATION: clear to auscultation bilaterally Cardio: COMMON NORMALS: regular rate and regular rhythm RATE: regular rate RHYTHM: regular rhythm GI: COMMON NORMALS: Normal to inspection, nondistended, normoactive bowel sounds present Extremity: COMMON NORMALS: no pedal edema Neuro: MADIE COMA SCALE: document GCS findings Madie coma scale eye opening: Spontaneous Madie coma scale verbal response: Orientated Madie coma scale motor response: Obey commands [place] coma scale total score: 15 SENSORY EXAM: Yes extremities (intact) Psych: COMMON NORMALS: speech normal SPEECH: Yes normal speech Skin: COMMON NORMALS: no rashes or lesions noted GENERAL SKIN EXAM: no rashes or lesions noted Course Vital Signs: Vital signs: Vital Signs Temperature 97.9 F 02/18/24 21:08 Pulse Rate 79 02/18/24 21:08 Respiratory Rate 14 02/18/24 21:08 Blood Pressure 168/76 02/18/24 21:08 Pulse Oximetry 98 02/18/24 21:08 Oxygen Delivery Me thod Room Air 02/18/24 21:04 MDM - Arrhythmia/Palpitations Medical Decision Making Patient was quite hypertensive on arrival. Blood pressure now 141/92 after treatment. She is afebrile. Chest x-ray is negative. Normal EKG present with normal axis, normal intervals, rate of 75, and no acute ST wave changes. Timed 17: 58. Pain is reproducible on palpation of the left anterior chest, as well as movement of the left arm. Creatinine is 1.7. Initial troponin is 17 with a 2-hour delta of -1.2. Lipase mildly elevated at 229. White blood cell count is normal. Hemoglobin is 7.1. She has a history of GI bleeding in the past. Hemoccult is negative here. She is nontachycardic, hypertensive not hypotensive. MCV is normal. She will require repeat CBC in 48 hours or less, to ensure hemoglobin does not continue to fall, as she is near transfusion markers. Orders have been written for this by me. Her daughter reports that they are to return on Monday for testing related to her eyesight, and can get this done. She is stable for discharge currently. She will return for new or worsening symptoms. Lab Data 02/18/24 16:25 02/18/24 16:25 Radiology Impressions Chest X-Ray 02/18/24 15:51 IMPRESSION: No acute findings. Laboratory Results WBC 6.95 10^3/uL (3.29-11.43) 02/18/24 16: RBC 2.37 10^6/uL (3.85-5.65) L 02/18/24 16:25 Hgb 7.10 g/dL (11.27-16.99) L 02/18/24 16:25 Hct 23.1 % (36-47) L 02/18/24 16:25 MCV 97.5 fl (85-98) 02/18/24 16:25 MCH 30.0 pg (27-33) 02/18/24 16: MCHC 30.7 g/dL (30-55) 02/18/24 16:25 RDW 14.4 % (12.1-15.1) 02/18/24 16:25 Plt Count 538 10^3/cmm (157-399) H 02/18/24 16:25 MPV 9.1 fL (7.4-10.4) 02/18/24 16:25 Neut % (Auto) 58.7 % 02/18/24 16:25 Lymph % (Auto) 27.2 % 02/18/24 16:25 [place] % (Auto) 7.5 % 02/18/24 16:25 Eos % (Auto) 5.6 % 02/18/24 16:25 Baso % (Auto) 0.6 % 02/18/24 16:25 Neut # (Auto) 4.08 10^3/uL (1.8-7.7) 02/18/24 16:25 Lymph # (Auto) 1.9 10^3/uL (0.8-4.8) 02/18/24 16:25 [place] # (Auto) 0.5 10^3/uL (0.2-0.9) 02/18/24 16:25 Eos # (Auto) 0.4 10^3/uL (0.0-0.8) 02/18/24 16:25 Baso # (Auto) 0.0 10^3/uL (0.0-0.1) 02/18/24 16:25 Nucleated RBC % (auto) 0 % 02/18/24 16:25 Nucleated RBCs # 0.0 /100WBC 02/18/24 16:25 PT 12.20 SECONDS (12.1-14.9) 02/18/24 16:25 INR 0.88 (0.8-1.2) 02/18/24 16:25 Sodium 134 mmol/L (136-145) L 02/18/24 16:25 Potassium 4.7 mmol/L (3.5-5.1) 02/18/24 16:25 Chloride 99 mmol/L (98-107) 02/18/24 16:25 Carbon Dioxide 21 mmol/L (22-29) L 02/18/24 16:25 Anion Gap 18.7 (5-19) 02/18/24 16:25 BUN 17 mg/dL (8-23) 02/18/24 16:25 Creatinine 1.7 mg/dL (0.5-0.9) H 02/18/24 16:25 GFR Calculation Not Reportable 02/18/24 16:25 Glucose 92 mg/dL (65-115) 02/18/24 16:25 Calculated Osmolality 279 mOsm/kg (285-295) L 02/18/24 16:25 Calcium 7.8 mg/dL (8.5-10.5) L 02/18/24 16:25 Total Bilirubin 0.2 mg/dL (0.15-1.2) 02/18/24 16:25 AST 13 U/L (0-32) 02/18/24 16:25 ALT 7 U/L (0-33) 02/18/24 16:25 Alkaline Phosphatase 167 U/L (35-105) H 02/18/24 16:25 Troponin T Baseline 17 ng/L (0-10) H 02/18/24 16:25 Troponin T 120 Minute 15.82 ng/L (0-10) H 02/18/24 18:37 Delta Troponin T -1.18 ABS# (0-10) L 02/18/24 18:37 NT-Pro-B Natriuret Pep 355 pg/mL (0-450) 02/18/24 16:25 Total Protein 6.3 g/dL (6.6-8.7) L 02/18/24 16:25 Albumin 4.0 g/dL (3.5-5.2) 02/18/24 16:25 Globulin 2.3 g/dL (1.3-4.6) 02/18/24 16:25 Lipase 229 U/L (13-60) H 02/18/24 16:25 All radiology interpretation(s) finalized by discharge Discharge Plan Discharge Patient Disposition: Home Clinical Impression: Palpitations, Atypical chest pain Chronic kidney disease Qualifiers: Chronic kidney disease stage: unspecified stage Qualified Code(s): N18.9 - Chronic kidney disease, unspecified Condition: Stable Prescriptions: No Action simvastatin 20 mg tablet 20 mg PO DAILY primidone 50 mg tablet 50 mg PO BID amitriptyline 25 mg tablet 25 mg PO BEDTIME nitroglycerin 0.4 mg tablet, sublingual 0.4 mg sublingual PRN PRN (Reason: Chest Pain) ferrous sulfate [FeroSul] 325 mg (65 mg iron) tablet 325 mg PO BID metoprolol succinate 25 mg tablet extended release 24 hr 12.5 mg PO DAILY isosorbide dinitrate 5 mg tablet 2.5 mg PO BID Hold Instructions: Resume on 07/20/21. hold until follow up with cardiology tizanidine 4 mg tablet 4 mg PO Q6H PRN (Reason: Spasms) Phospha 250 Neutral 250 mg tablet 1 tab PO BID Qty: 4 0RF potassium chloride 10 mEq tablet extended release 10 meq PO DAILY dexlansoprazole 60 mg capsule,biphase delayed releas 60 mg PO DAILY Discharge Orders: Discharge ED (Routine); Ordered 02/18/24 Ordered By: Jorgito German Referrals: Laith Patel DO [Primary Care Provider] - 1-3 days Patient Instructions: Heart Palpitations (ED), Anemia (ED), Chest Wall Pain (ED), Opioid Safety, Pain Management Activity Restrictions/Additional Instructions: Your blood count was low here. You need to repeat blood count on Monday, as you may need a blood transfusion soon if it continues to fall. Orders have been written for this. When you come to the hospital for your testing on Monday for your eyes, you should have your blood drawn. Call your doctor after your testing is done, to make sure they know the results of your blood count. Return to the hospital for worsening pain, syncope or passing out, shortness of breath, other concerning symptoms. Return also if you notice bloody or black tarry stools. See your doctor this week. 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
[2024-02-18 18:57] LABS: Troponin 5 2HR 15.82 ng/L (0-10)
[2024-02-18 18:59] LABS: Troponin 5 2HR Delta -1.18 ABS# (0-10)
[2024-02-18 19:09] LABS: NT Pro B Type Natriuretic Pept 355 pg/mL (0-450)
[2024-02-18] MEDS: labetalol 5 mg/mL SDV 20mL 20 MG IVP (20:39)
[2024-02-18 20:48] VITALS: BP 141/92; PULSE 68; RESP 16; O2SAT 97
[2024-02-18 21:04] VITALS: BP 168/76; PULSE 79; RESP 14; O2SAT 98
[2024-02-18 21:08] VITALS: BP 168/76; PULSE 79; RESP 14; TEMP 36.6; O2SAT 98
== END 2024-02-18 21:10 | disposition home or self-care (01) ==
PROVIDERS: Emergency Medicine; Emergency Provider Emergency Medicine; PCP Family Medicine
DX: R07.89 Other chest pain (principal); R00.2 Palpitations; N18.9 Chronic kidney disease, unspecified; F17.210 Nicotine dependence, cigarettes, uncomplicated; E78.5 Hyperlipidemia, unspecified; I25.10 Atherosclerotic heart disease of native coronary artery without angina pectoris; J44.9 Chronic obstructive pulmonary disease, unspecified
CPT/HCPCS: 36415; 71045; 80053; 83690; 83880; 84484; 85025; 85610; 93005; 96374; 99285; J3490

== ENCOUNTER 2024-02-21 14:12 | Outpatient (CLI) | payer MEDICARE, MEDICAID, SELFPAY ==
--- NOTE | 2024-02-21 14:19 | USCV_ITS ---
Maribel Yazminrizwan Age: 78 Gender: F : 1945 Exam Date: 02/21/2024 14:30 Ordering Phys: Delroy Denis Technologist: JOSE Exam Location: [facility] [place] Indication: visual disturbance Risk Factors: Previous Vascular Surgery: Right Brachial BP: / Left Brachial BP: / Right Left Velocity (cm/s) Spectral Plaque Velocity (cm/s) Spectral Plaque Syst/Diast Broadening Syst/Diast Broadening 74.60/ 16.40 Prox CCA 95.40 / 24.40 87.20/ 23.10 Mid CCA 78.40 / 23.70 95.10/ 24.00 Distal CCA 79.60 / 25.50 87.90/ 24.60 Prox ICA 177.60/ 62.40 84.90/ 21.80 Mid ICA 104.80/ 32.00 87.00/ 29.50 Distal ICA 71.20 / 18.00 105.40 ECA 82.10 0.90 ICA/CCA 2.20 Antegrade Vertebral Antegrade 55.40/ 21.10 cm/s 63.70/ 21.80 cm/s Bi Subclavian Bi 164.8 85.70 0 FINDINGS Comparison:. 07/13/21 Increase in atherosclerotic plaque in the left bifurcation and velocity. No change right carotid velocity. Antegrade vertebral arteries. CONCLUSIONS Left ICA stenosis 50-69%. Interval increase in velocity and atherosclerosis. Right ICA stenosis < 50%. Dr. Leigh Hayes DO (Electronically Signed) Final Date: 22 February 2024 08:55 S
== END 2024-02-21 14:13 | disposition home or self-care (01) ==
LOC: RAD 14:15
PROVIDERS: PCP Family Medicine; Visit Provider Physician Assistant Medical
DX: I65.22 Occlusion and stenosis of left carotid artery (principal); H34.13 Central retinal artery occlusion, bilateral
CPT/HCPCS: 93880

== ENCOUNTER 2024-06-20 13:32 | Inpatient (IN) | payer MEDICARE, MEDICAID, SELFPAY ==
[2024-06-20] VITALS (16 sets, daily range): BP systolic 159–200; BP diastolic 61–85; PULSE 69–90; RESP 15–20; TEMP 36.4–36.7; O2SAT 95–100; BMI 21.1
--- NOTE | 2024-06-20 15:33 | CTR_ITS ---
PROCEDURE INFORMATION: Exam: CT Chest Without Contrast; Diagnostic Exam date and time: 06/20/2024 4:36 PM Age: 78 years old Clinical indication: Injury or trauma; Fall; Blunt trauma (contusions or hematomas); Additional info: Traumatic left lower lateral chest pain TECHNIQUE: Imaging protocol: Diagnostic computed tomography of the chest without contrast. Radiation optimization: All CT scans at this facility use at least one of these dose optimization techniques: automated exposure control; mA and/or kV adjustment per patient size (includes targeted exams where dose is matched to clinical indication); or iterative reconstruction. COMPARISON: CR (CHEST, ) 02/18/2024 4:29 PM RADIATION DOSE METRICS: Total DLP (mGy-cm): 209.59 FINDINGS: Lungs: Moderate severity emphysema. Hyperinflated lungs. Pleural spaces: Unremarkable. No pneumothorax. No pleural effusion. Heart: Unremarkable. No cardiomegaly. No pericardial effusion. Coronary arteries: [id number] coronary calcification. Lymph nodes: Unremarkable. No enlarged lymph nodes. Vasculature: Unremarkable. No aortic aneurysm. Gallbladder and biliary ducts: Cholecystectomy clips. No biliary dilatation. Intestine: [id number] retained colonic stool in the field of view. Bones/joints: Remote fracture deformity of the lateral left 2nd and 3rd ribs and probable subacute sclerotic fracture deformity of the anterolateral left 4th-8th ribs. No acute fracture identified. Soft tissues: Unremarkable. CT/CT chest con [id number] IMPRESSION: 1. Subacute mildly sclerotic nondisplaced fractures of the lateral left 4th-8th ribs. Remote posterior left 2nd and 3rd rib fractures . 2. Moderate severity emphysema . COMMENTS: The presence of pulmonary emphysema on CT is an independent risk factor for lung cancer. In the absence of a history or active diagnosis of lung cancer, it is recommended that this patient with emphysema be evaluated for enrollment in a low dose CT lung cancer screening program.
--- NOTE | 2024-06-20 15:33 | XRR_ITS ---
PROCEDURE INFORMATION: Exam: XR Left Shoulder Exam date and time: 06/20/2024 3:59 PM Age: 78 years old Clinical indication: Injury or trauma; Fall; Blunt trauma (contusions or hematomas); Shoulder; Left; Additional info: Fall, shoulder pain TECHNIQUE: Imaging protocol: Radiologic exam of the left shoulder. Views: 2 or more views. AP INT/ EXT ROTATION, SCAPULAR Y COMPARISON: CR (CHEST, ) 02/18/2024 4:29 PM FINDINGS: Bones/joints: Diffusely decreased bone density. Moderate generalized bony degenerative changes. No visualized evidence for acute bony fracture or dislocation. Bony structures appear otherwise unremarkable. Old healed left rib fractures are demonstrated. Lungs: Pleural-parenchymal pulmonary linear scarring, fibrotic changes identified within left lung. Soft tissues: Unremarkable. Notes: If there is further concern, follow-up radiographs or MRI of the shoulder may be performed for complete assessment. XR/XR shoulder LT min 2V* [id number] IMPRESSION: 1. No acute bony fracture or dislocation. 2. Decreased bone density. Chronic bony degenerative changes. 3. Left-sided pulmonary fibrosis. 4. Old left rib fractures.
--- NOTE | 2024-06-20 15:42 | ED_ITS ---
HPI - Fall 2 General: Chief Complaint: Fall Stated Complaint: fell Time Seen by Provider: 06/20/24 15:29 History of Present Illness: 78-year-old female with a history of hyp ertension, tobacco dependence, hypertension who presents to the emergency room after a fall with left shoulder and left rib pain. She says she became very weak and fell. She says other than the pain right now she does not feel sick. No altered mental status. No focal motor deficits. No head injury. No loss of consciousness. She is not on any blood thinners. Related Data Home Medications Medication Instructions Recorded Confirmed amitriptyline 25 mg tablet 25 mg PO BEDTIME 09/09/19 06/20/24 nitroglycerin 0.4 mg sublingual 0.4 mg sublingual PRN PRN Chest 09/09/19 06/20/24 tablet Pain primidone 50 mg tablet 50 mg PO BID 07/16/20 06/20/24 simvastatin 20 mg tablet 20 mg PO DAILY 01/04/21 06/20/24 tizanidine 4 mg tablet 4 mg PO Q6H PRN Spasms 07/30/21 06/20/24 dexlansoprazole 60 mg 60 mg PO DAILY 07/07/23 06/20/24 capsule,biphase delayed release potassium chloride 10 mEq 10 meq PO DAILY 07/07/23 06/20/24 tablet,extended release cilostazol 50 mg tablet 50 mg PO BID 06/20/24 06/20/24 furosemide 20 mg tablet See Rx Instructions .Route .COMPLEX 06/20/24 06/20/24 naproxen 500 mg tablet 500 mg PO BID 06/20/24 06/20/24 omeprazole 40 mg capsule,delayed 40 mg PO DAILY 06/20/24 06/20/24 release Allergies Allergy/AdvReac Type Severity Reaction Status Date / Time iodine Allergy Unknown Verified 06/20/24 14:09 Penicillins Allergy ALGY-Anaphy Verified 06/20/24 14:09 laxis Review of Systems 2 Narrative: Constitutional symptoms: Negative except as documented in HPI. Skin symptoms: Negative except as documented in HPI. Eye symptoms: Negative except as documented in HPI. ENMT symptoms: Negative except as documented in HPI. Respiratory symptoms: Negative except as documented in HPI. Cardiovascular symptoms: Negative except as documented in HPI. Gastrointestinal symptoms: Negative except as documented in HPI. Genitourinary symptoms: Negative except as documented in HPI. Musculoskeletal symptoms: Negative except as documented in HPI. Neurologic symptoms: Negative except as documented in HPI. Psychiatric symptoms: Negative except as documented in HPI. Endocrine symptoms: Negative except as documented in HPI. PFSH ED 2 PFSH: Medical History Hypotension History of echocardiogram 09/10/2019 EF 69%, I/IV diastolic dysfunction History of Holter monitoring 05/2020 baseline rhythm sinus, 74 bpm, no arrhythmias History of stress test 08/2020 normal myocardial perfusion imaging, no ekg changes History of hypertension in past Hyperlipidemia Digoxin toxicity Bacteremia due to Escherichia coli (~08/2019) Acute upper gastrointestinal bleeding (~06/2021) required transfusion 3 units pRBCs Coronary artery disease Chronic kidney disease Postural orthostatic tachycardia syndrome COPD (chronic obstructive pulmonary disease) Anemia Surgical History History of cardiac catheterization 2020 - moderate mid circumflex and LAD lesions though not significant by FFR Status post laparoscopic cholecystectomy (04/14/21) H/O ventral hernia repair Status post right inguinal hernia repair H/O esophagogastroduodenoscopy (07/30/21) Duodenitis Status post colonoscopy (07/30/21) Diverticulosis History of appendectomy History of 3 sections Family History Father Stroke Denies family history of Diabetes CAD (coronary artery disease) Family history of premature coronary artery disease Social History Smoking and tobacco/nicotine status: current some day tobacco/nicotine user cigarettes Packs smoked per day: 1.5 Years cigarettes smoked: 57 Quit status (tobacco/nicotine): not considering quitting Alcohol intake: never Substance/Drug Use: never Lives independently: Yes Household members: spouse Marital status: Current occupational status: retired Do you think of yourself as: Straight/Heterosexual Current gender identity: Female Physical Exam 2 Narrative: EXAM NARRATIVE: General: Alert, no acute distress. Skin: Warm, dry. Head: Normocephalic, atraumatic. Neck: Supple, trachea midline. Eye: Extraocular movements are intact. Ears, nose, mouth and throat: mucosa moist. Cardiovascular: Regular, Normal peripheral perfusion. Respiratory: Lungs are clear to auscultation, respirations are non-labored, breath sounds are equal, Symmetrical chest wall expansion. Tenderness to palpation of the left lateral ribs Gastrointestinal: Soft, Nontender, Non distended Musculoskeletal: There are some tenderness of the shoulder area. No obvious deformities. Seems to be able to move her shoulder okay. Neurological: Alert and oriented, No focal neurological deficit observed. Psychiatric: Cooperative, appropriate mood & affect. Course 2 Vital Signs: Vital signs: Vital Signs Temperature 98.1 F 06/20/24 13:56 Pulse Rate 72 06/20/24 17:05 Respiratory Rate 20 H 06/20/24 13:56 Blood Pressure 172/85 06/20/24 17:05 Pulse Oximetry 100 06/20/24 17:05 Oxygen Delivery Me thod Room Air 06/20/24 17:05 MDM - Fall Medical Decision Making Medical decision making: Differential diagnosis for patient presenting with generalized weakness including but not limited to and based on the above HPI, review of systems and physical exam: Sepsis. Dehydration. Renal failure. Electrolyte abnormalities. Anemia. Congestive heart failure. Hypotension. Coronary syndrome. Hepatitis. Cirrhosis. Infections such as pneumonia, urinary tract infection, [place] illness, Cellulitis, Viral infections including influenza and Covid-19. Workup: labwork and lab/exam driven imaging ordered to evaluate, rule in and rule out above pathologies. EKG: Time 1404. Rate 81. Normal sinus rhythm, No ST-T changes, no ectopy, normal [place] & QRS intervals, This was reviewed and interpreted by myself the ER physician at 1410. X-ray of the left shoulder: No acute fractures or dislocations. This was reviewed and interpreted by myself the emergency room physician. I also reviewed the radiology report. CT of the chest without contrast: Subacute mildly sclerotic nondisplaced fractures of the lateral left 4 through 8 ribs. This is where she has pain. So these may be acute. This was reviewed and interpreted by myself the emergency room physician. I also reviewed the radiology report. Lab Review: Laboratory results were reviewed and interpreted by myself the emergency room physician. No leukocytosis. Hemoglobin is significantly lower than previous at 5.5. She reports a history of 5 transfusion secondary to anemia in the past. She does not know why she is anemic. BUN and creatinine are 26 and 1.9 which is at or slightly above her baseline. Urinalysis shows nitrite positive urine with 4+ bacteria but only minimal leukocytosis in the urine. I am treating this with Rocephin. 2 units of blood been ordered as well. I reviewed the patient's medical record. Reexamination: Patient has remained stable as far as her vitals go. No hypotension. No tachycardia. No increased work of breathing. No oxygen requirements. I discussed with her and family and she says she has had 5 transfusions for chronic anemia. She does not know why she is anemic. She has had no black tarry stools. No altered mental status. She is still very tender in her left lateral ribs. Consultation: I spoke with Dr. Paige who is on-call for the hospitalist service who agrees to admission. Assessment and plan: Anemia Syncope Rib fractures Shoulder injury Chronic renal failure Urinary tract infection ?2 units PRBCs, further anemia workup was ordered as well. ? IV Rocephin in the emergency room. ?Incentive spirometry for rib fractures. -I discussed the patient with the hospitalist on-call who is admitting the patient. - Discussed findings and plan with patient. Answered any questions. - All laboratory values were reviewed and interpreted personally by myself, the ER physician - All imaging was reviewed and interpreted personally by myself, the ER physician. - Evaluation and treatment of this problem were appropriate in the emergency setting Lab Data 06/20/24 16:16 06/20/24 16:[address] 06/20/24 15:33 IMPRESSION: 1. Subacute mildly sclerotic nondisplaced fractures of the lateral left 4th-8th ribs. Remote posterior left 2nd and 3rd rib fractures . 2. Moderate severity emphysema . COMMENTS: The presence of pulmonary emphysema on CT is an independent risk factor for lung cancer. In the absence of a history or active diagnosis of lung cancer, it is recommended that this patient with emphysema be evaluated for enrollment in a low dose CT lung cancer screening program. Shoulder X-Ray 06/20/24 15:33 IMPRESSION: 1. No acute bony fracture or dislocation. 2. Decreased bone density. Chronic bony degenerative changes. 3. Left-sided pulmonary fibrosis. 4. Old left rib fractures. Laboratory Results WBC 6.29 10^3/uL (3.29-11.43) 06/20/24 16:16 RBC 2.34 10^6/uL (3.85-5.65) L 06/20/24 16:16 Hgb 5.50 g/dL (11.27-16.99) L* 06/20/24 16:16 Hct 19.8 % (36-47) L* 06/20/24 16:16 MCV 84.6 fl (85-98) L 06/20/24 16:16 MCH 23.5 pg (27-33) L 06/20/24 16:16 MCHC 27.8 g/dL (30-55) L 06/20/24 16:16 RDW 16.0 % (12.1-15.1) H 06/20/24 16:16 Plt Count 445 10^3/cmm (157-399) H 06/20/24 16:16 MPV 9.7 fL (7.4-10.4) 06/20/24 16:16 Neut % (Auto) 72.1 % 06/20/24 16:16 Lymph % (Auto) 15.4 % 06/20/24 16:16 [place] % (Auto) 7.6 % 06/20/24 16:16 Eos % (Auto) 4.1 % 06/20/24 16:16 Baso % (Auto) 0.5 % 06/20/24 16:16 Reticulocyte % (Auto) 1.3 % (0.5-2.0) 06/20/24 16:16 Neut # (Auto) 4.53 10^3/uL (1.8-7.7) 06/20/24 16:16 Lymph # (Auto) 1.0 10^3/uL (0.8-4.8) 06/20/24 16:16 [place] # (Auto) 0.5 10^3/uL (0.2-0.9) 06/20/24 16:16 Eos # (Auto) 0.3 10^3/uL (0.0-0.8) 06/20/24 16:16 Baso # (Auto) 0.0 10^3/uL (0.0-0.1) 06/20/24 16:16 Nucleated RBC % (auto) 0 % 06/20/24 16:16 Nucleated RBCs # 0.0 /100WBC 06/20/24 16:16 PT 12.10 SECONDS (12.1-14.9) 06/20/24 16:16 INR 0.83 (0.8-1.2) 06/20/24 16:16 APTT 29.3 SECONDS (23.9-36.7) 06/20/24 16:16 Sodium 132 mmol/L (136-145) L 06/20/24 16:16 Potassium 4.6 mmol/L (3.5-5.1) 06/20/24 16:16 Chloride 99 mmol/L (98-107) 06/20/24 16:16 Carbon Dioxide 19 mmol/L (22-29) L 06/20/24 16:16 Anion Gap 18.6 (5-19) 06/20/24 16:16 BUN 26 mg/dL (8-23) H 06/20/24 16:16 Creatinine 1.9 mg/dL (0.5-0.9) H 06/20/24 16:16 GFR Calculation Not Reportable 06/20/24 16:16 Glucose 94 mg/dL (65-115) 06/20/24 16:16 Calculated Osmolality 279 mOsm/kg (285-295) L 06/20/24 16:16 Lactic Acid 1.0 mmol/L (0.5-2.2) 06/20/24 16:16 Calcium 8.4 mg/dL (8.5-10.5) L 06/20/24 16:16 Iron 15 ug/dL (37-145) L 06/20/24 17:05 TIBC 414 mcg/dl 06/20/24 17:05 % Saturation 3.6 % (20-50) L 06/20/24 17:05 Unsat Iron Binding 399 ug/dL (112-347) H 06/20/24 17:05 Ferritin 8 ng/mL (15-150) L 06/20/24 17:05 Total Bilirubin 0.2 mg/dL (0.15-1.2) 06/20/24 16:16 AST 14 U/L (0-32) 06/20/24 16:16 ALT 8 U/L (0-33) 06/20/24 16:16 Alkaline Phosphatase 160 U/L (35-105) H 06/20/24 16:16 Lactate Dehydrogenase 218 U/L (135-214) H 06/20/24 17:05 Troponin T Baseline 22 ng/L (0-10) H 06/20/24 16:16 Total Protein 7.1 g/dL (6.6-8.7) 06/20/24 16:16 Albumin 4.1 g/dL (3.5-5.2) 06/20/24 16:16 Globulin 3.0 g/dL (1.3-4.6) 06/20/24 16:16 Folate 10.0 ng/mL (4.8-37.3) 06/20/24 17:05 Urine Color Yellow (Yellow) 06/20/24 16:31 Urine Appearance Clear (CLEAR) 06/20/24 16:31 Urine pH 5.0 (5-7) 06/20/24 16:31 Ur Specific [place] 1.010 (1.005-1.030) 06/20/24 16:31 Urine Protein Negative (Negative) 06/20/24 16:31 Urine Glucose (UA) Negative (Normal) 06/20/24 16:31 Urine Ketones Negative (Negative) 06/20/24 16:31 Urine Blood Negative (Negative) 06/20/24 16:31 Urine Nitrate Positive (Negative) A 06/20/24 16:31 Urine Bilirubin Negative (Negative) 06/20/24 16:31 Urine Urobilinogen 0.2 mg/dL (Negative) 06/20/24 16:31 Ur Leukocyte Esterase Trace (Negative) A 06/20/24 16:31 Urine RBC 0-2 /hpf (0-2) 06/20/24 16:31 Urine WBC 6-10 /hpf (0-5) 06/20/24 16:31 Ur Squamous Epith Cells 0-5 /hpf (0-5) 06/20/24 16:31 Amorphous Sediment Not Reportable 06/20/24 16:31 Urine Bacteria 4+ /hpf (NONE) H 06/20/24 16:31 Hyaline Casts 1.21 /lpf 06/20/24 16:31 Blood Type A Positive 06/20/24 17:05 Rho(D) Type Rh positive 06/20/24 17:05 Antibody Screen Negative 06/20/24 17:05 Crossmatch See Detail 06/20/24 17:05 All radiology interpretation(s) finalized by discharge Discharge Plan Discharge Patient Disposition: Admitted As Inpatient Admit Provider: Katya Paige Clinical Impression: Anemia, Syncope, Rib injury, Rib fracture Chronic kidney disease Qualifiers: Chronic kidney disease stage: unspecified stage Qualified Code(s): N18.9 - Chronic kidney disease, unspecified Condition: Stable Coding Level of Care Code ED Clinical Applications Specialist for Justus Greenwood
--- NOTE | 2024-06-20 15:46 | ECG_ITS ---
[facility] Test Date: 2024-06-20 Pat Name: Maile López Department: Room: Gender: Female Commercial Loan Collection Officer: : 1945 Requested By: Katherine Gonzalez Order Number: [id number] Summer MD: Juan Diego Cueto M.D. Measurements Intervals [place] Rate: 73 P: 63 NH: 149 QRS: 16 QRSD: 69 T: 57 QT: 382 QTc: 422 Interpretive Statements SINUS RHYTHM Compared to ECG 02/18/2024 17:58:35 No significant changes Electronically Signed On 06-20-2024 16:07:20 GANG PUNCH OPERATOR by Juan Diego Cueto M.D. [id number]
--- NOTE | 2024-06-20 15:59 | PC.PHAR ---
Addendum entered by Madina Dasilva 06/20/24 16:01: Nitro bottle is over 4 years old. Original Note: Pt does not see. Family brought in rx bottles for verification
[2024-06-20 16:42] LABS: Basophils % 0.5 %; Eosinophils # 0.3 10^3/uL (0.0-0.8); Eosinophils % 4.1 %; Lymphocytes % 15.4 %; Mean Corpuscular HGB Conc 27.8 g/dL (30-55); Mean Corpuscular Hemoglobin 23.5 pg (27-33); Mean Corpuscular Volume 84.6 fl (85-98); Mean Platelet Volume 9.7 fL (7.4-10.4); Monocytes # 0.5 10^3/uL (0.2-0.9); Monocytes % 7.6 %; Neutrophils # 4.53 10^3/uL (1.8-7.7); Neutrophils % 72.1 %; Nucleated Red Blood Cells % 0 %; Platelet Count 445 10^3/cmm (157-399); Red Blood Count 2.34 10^6/uL (3.85-5.65); White Blood Count 6.29 10^3/uL (3.29-11.43)
[2024-06-20 16:46] LABS: Hematocrit 19.8 % (36-47)
[2024-06-20 16:57] LABS: Troponin(5th) Baseline 22 ng/L (0-10)
[2024-06-20 17:10] LABS: INR 0.83 (0.8-1.2); Reticulocyte % 1.3 % (0.5-2.0)
[2024-06-20 17:11] LABS: Partial Thromboplastin Time 29.3 SECONDS (23.9-36.7)
[2024-06-20 17:21] LABS: Bilirubin Urine Negative (Negative); Blood Urine Negative (Negative); Glucose Urine UA Negative (Normal); Ketones Urine Negative (Negative); Leukocyte Esterase Urine Trace (Negative); Nitrate Urine Positive (Negative); Protein Urine Negative (Negative); Urine Appearance Clear (CLEAR); Urine Color Yellow (Yellow); Urobilinogen Urine 0.2 mg/dL (Negative)
[2024-06-20 17:27] LABS: Bacteria Urine 4+ /hpf; Hyaline Casts Urine 1.21 /lpf; RBC Urine 0-2 /hpf (0-2); Squamous Epithelial Cell Urine 0-5 /hpf (0-5)
--- NOTE | 2024-06-20 17:33 | ECG_ITS ---
[facility] Date: 2024-06-20 Pat Name: Maile López Department: Room: Gender: Female Certified Midwife: : 1945 Requested By: Katherine Gonzalez Order Number: [id number] Summer MD: Adria Mcdonald M.D. Measurements Intervals [place] Rate: 73 P: 61 AL: 147 QRS: 10 QRSD: 73 T: 63 QT: 379 QTc: 419 Interpretive Statements SINUS RHYTHM NONSPECIFIC T-WAVE ABNORMALITY Compared to ECG 06/20/2024 15:46:50 T-wave abnormality now present Electronically Signed On 06-21-2024 21:55:16 BUDGET ACCOUNTANT by Adria Mcdonald M.D. [id number]
[2024-06-20 17:34] LABS: Alanine Aminotransferase 8 U/L (0-33); Albumin Level 4.1 g/dL (3.5-5.2); Alkaline Phosphatase 160 U/L (35-105); Anion Gap 18.6 (5-19); Aspartate Amino Transferase 14 U/L (0-32); Blood Urea Nitrogen 26 mg/dL (8-23); Calcium 8.4 mg/dL (8.5-10.5); Carbon Dioxide 19 mmol/L (22-29); Chloride 99 mmol/L (98-107); Creatinine Clr Calc Pharmacy 18.6484; Glucose 94 mg/dL (65-115); Osmolality Calculated 279 mOsm/kg (285-295); Potassium 4.6 mmol/L (3.5-5.1); Sodium 132 mmol/L (136-145); Total Bilirubin 0.2 mg/dL (0.15-1.2); Total Protein 7.1 g/dL (6.6-8.7)
[2024-06-20 17:54] LABS: Add Urine Culture? Yes
[2024-06-20 18:05] LABS: Ferritin 8 ng/mL (15-150); Iron 15 ug/dL (37-145); Lactate Dehydrogenase 218 U/L (135-214); Percent Saturation 3.6 % (20-50); Total Iron Binding Capacity 414 mcg/dl; Unsaturated Iron Binding 399 ug/dL (112-347)
--- NOTE | 2024-06-20 18:19 | PC.NURSE ---
UNABLE TO OBTAIN IV ACCESS, DR. ILIANA BALL PREPARING BOX TENDER CONTACTED FOR MIDLINE PLACEMENT. MEDICATIONS AND BLOOD TRANSFUSION DELAYED DUE TO NEED FOR IV ACCESS.
--- NOTE | 2024-06-20 18:23 | P.HP_ITS ---
Providers/Chief Complaint 2 Primary Care Provider: Laith Patel Chief Complaint: fell History of Present Illness Maile López is a 78 year old female recurrent syncope possible due to POTS, chronic kidney disease, labile hypertension, hyperlipidemia for recurrent syncope and chest pain underwent left heart cath noted to have moderate mid circumflex and LAD lesion.? Patient is stating that she has not been told about the etiology of syncope but she has had multiple resulting with rib fracture, does not use oxygen, smokes half a pack a day, lives with her family presented today because of another syncopal event. Patient is stating that all she could remember is getting out of couch going to outside the room and passing out. As soon as she hit the ground she woke up. No seizure related activity, no pressure-like sensation but endorsing stabbing pain left rib area. No fever nausea vomiting or diarrhea. Patient is not endorsing hematemesis, blood in urine, blood colored stools, does not use anticoagulating agent, her hemoglobin is dropped, patient is stating that she has received blood transfusion in the past no one has ever told her about the etiology of recurrent blood transfusion and anemia. Review of Systems 2 Const: Denies: fever(s) Eyes: Denies: change in vision ENMT: Denies: throat pain Card: Reports: chest pain Medications/Allergies Home Medications Medication Instructions Recorded Confirmed Last Taken Type amitriptyline 25 mg tablet 25 mg PO BEDTIME 09/09/19 06/20/24 06/19/24 History nitroglycerin 0.4 mg sublingual 0.4 mg sublingual PRN PRN Chest 09/09/19 06/20/24 Unknown History tablet Pain primidone 50 mg tablet 50 mg PO BID 07/16/20 06/20/24 06/20/24 History simvastatin 20 mg tablet 20 mg PO DAILY 01/04/21 06/20/24 06/19/24 History tizanidine 4 mg tablet 4 mg PO Q6H PRN Spasms 07/30/21 06/20/24 Unknown History dexlansoprazole 60 mg 60 mg PO DAILY 07/07/23 06/20/24 06/20/24 History capsule,biphase delayed release potassium chloride 10 mEq 10 meq PO DAILY 07/07/23 06/20/24 06/20/24 History tablet,extended release cilostazol 50 mg tablet 50 mg PO BID 06/20/24 06/20/24 06/20/24 History furosemide 20 mg tablet See Rx Instructions .Route .COMPLEX 06/20/24 06/20/24 06/20/24 History naproxen 500 mg tablet 500 mg PO BID 06/20/24 06/20/24 06/20/24 History omeprazole 40 mg capsule,delayed 40 mg PO DAILY 06/20/24 06/20/24 06/20/24 History release Allergies Allergy/AdvReac Type Severity Reaction Status Date / Time iodine Allergy Unknown Verified 06/20/24 14:09 Penicillins Allergy ALGY-Anaphy Verified 06/20/24 14:09 laxis PFSH Acute 2 PFSH: Medical History Hypotension History of echocardiogram 09/10/2019 EF 69%, I/IV diastolic dysfunction History of Holter monitoring 05/2020 baseline rhythm sinus, 74 bpm, no arrhythmias History of stress test 08/2020 normal myocardial perfusion imaging, no ekg changes History of hypertension in past Hyperlipidemia Digoxin toxicity Bacteremia due to Escherichia coli (~08/2019) Acute upper gastrointestinal bleeding (~06/2021) required transfusion 3 units pRBCs Coronary artery disease Chronic kidney disease Postural orthostatic tachycardia syndrome COPD (chronic obstructive pulmonary disease) Anemia Surgical History History of cardiac catheterization 2020 - moderate mid circumflex and LAD lesions though not significant by FFR Status post laparoscopic cholecystectomy (04/14/21) H/O ventral hernia repair Status post right inguinal hernia repair H/O esophagogastroduodenoscopy (07/30/21) Duodenitis Status post colonoscopy (07/30/21) Diverticulosis History of appendectomy History of 3 sections Family History Father Stroke Denies family history of Diabetes CAD (coronary artery disease) Family history of premature coronary artery disease Social History Smoking and tobacco/nicotine status: current some day tobacco/nicotine user cigarettes Packs smoked per day: 1.5 Years cigarettes smoked: 57 Quit status (tobacco/nicotine): not considering quitting Alcohol intake: never Substance/Drug Use: never Lives independently: Yes Household members: spouse Marital status: Current occupational status: retired Do you think of yourself as: Straight/Heterosexual Current gender identity: Female Vitals/I&O/Wt Last Vital Signs Temp 98.1 F 06/20/24 13:56 Pulse 72 06/20/24 17:05 Resp 20 H 06/20/24 13:56 BP 172/85 06/20/24 17:05 Pulse Ox 100 06/20/24 17:05 O2 Del Method Room Air 06/20/24 17:05 Weight last 48 hrs Weight 48.988 kg Physical Exam 2 Narrative: Awake and alert GCS 15 No signs of seizure No sign of meningitis Looks dehydrated S1, S2 Currently on room air Nonfocal neuroexam Pleasant and cooperative No sign of edema of lower extremity Abdomen soft S1, S2 Data 06/20/24 16:16 06/20/24 16:16 A&P Assessment and plan (1) Chronic kidney disease: Qualifiers: Chronic kidney disease stage: unspecified stage Qualified Code(s): N 18.9 - Chronic kidney disease, unspecified (2) Anemia: (3) Rib fracture: (4) Rib injury: (5) Syncope: Plan Recurrent syncope Patient has finished Holter monitoring in the past Concern for POTS This time it is possible secondary to severe anemia, check orthostatics Requested PRBC Patient is not endorsing hematemesis hematuria or dark-colored stools Not on anticoagulating agent or antiplatelets Syncope likely orthostatic Hold off on diuretics Does not look fluid overloaded Preserved action fraction Lives with her family Will keep her on cardiac diet Check stool studies Add Protonix Full code Check orthostatics and physical therapy Multiple rib fractures secondary to recurrent falls Patient does not endorse to drinking alcohol Opioids along bowel regimen Attestations 2 Medical Necessity Statement*: Anticipating discharge within 48 hours Diagnoses Chronic kidney disease, unspecified CKD stage N18.9 Chronic kidney disease stage: unspecified stage Other iron deficiency anemia D64.9 Rib fracture S22.39XA Rib injury S29.9XXA Syncope R55
--- NOTE | 2024-06-20 19:35 | PICC.NOTE ---
Midline placed to left brachial vein. Referred to vascular access nurse for midline placement due to no access and need for blood transfusion and admission to floor. Risks and benefits discussed and informed consent obtained from pt. Pt blind, so this nurse and Dr. Baldwin obtained verbal consent. Right arm assessed with bruising above AC noted. Pt states arm is sore from unsuccessful US IV attempts. Left arm assessed with left brachial vein measuring 3.0 mm, straight, and apparent best choice for placement. Using sterile technique and MST, left brachial vein accessed x 1 stick. Mid-arm circumference measured 10 cm from left AC 25 cm. Trimmed cath 10 cm with 1 cm external length noted. Line secured with stat-lock. Insertion site covered with Biopatch and TSM. Report given to bedside nurseUli.
[2024-06-20 19:42] LABS: Troponin 5 2HR 22.28 ng/L (0-10); Troponin 5 2HR Delta 0.28 ABS# (0-10)
[2024-06-20] MEDS: cefTRIAXone 1,000 mg SDV 1000 MG IVP (19:44)
[2024-06-20] MEDS: morphine IR 15 mg Tablet PO (20:45)
--- NOTE | 2024-06-20 21:33 | ECG_ITS ---
[facility] Date: 2024-06[facility]20 Pat Name: Maile López Department: Room: 255 Gender: Female Space Scheduler: : 1945 Requested By: Katherine Gonzalez Order Number: [id number] Summer MD: Adria Mcdonald M.D. Measurements Intervals [place] Rate: 76 P: 65 MA: 147 QRS: -1 QRSD: 69 T: 56 QT: 390 QTc: 439 Interpretive Statements SINUS RHYTHM NONSPECIFIC T-WAVE ABNORMALITY Compared to ECG 06/20/2024 17:50:11 No significant changes Electronically Signed On 06-21-2024 21:55:21 MANAGER OF SELECTION AND ASSESSMENT by Adria Mcdonald M.D. [email or web address]
[2024-06-20] MEDS: hyDRALAzine 20 mg/mL INJ 1 mL 5 MG IVP (21:57)
[2024-06-20 22:43] LABS: Troponin 5 6HR 20.15 ng/L (0-10)
[2024-06-20 22:47] LABS: Troponin 5 6HR Delta -1.85 ng/L (0-12)
[2024-06-21] VITALS (13 sets, daily range): BP systolic 136–183; BP diastolic 70–81; PULSE 74–98; RESP 15–18; TEMP 36.4–36.8; O2SAT 89–96
[2024-06-21 00:15] LABS: Vitamin B12 259 pg/mL (232-1245)
[2024-06-21] MEDS: morphine IR 15 mg Tablet PO ×2 (04:05→16:38)
[2024-06-21 06:47] LABS: Anion Gap 16.5 (5-19); Blood Urea Nitrogen 23 mg/dL (8-23); Calcium 8.4 mg/dL (8.5-10.5); Carbon Dioxide 20 mmol/L (22-29); Chloride 105 mmol/L (98-107); Creatinine Clr Calc Pharmacy 19.0452; Glucose 80 mg/dL (65-115); Magnesium 2.1 mg/dL (1.7-2.3); Osmolality Calculated 287 mOsm/kg (285-295); Potassium 4.5 mmol/L (3.5-5.1); Sodium 137 mmol/L (136-145)
[2024-06-21 06:56] LABS: Basophils % 0.3 %; Eosinophils # 0.2 10^3/uL (0.0-0.8); Hematocrit 28.1 % (36-47); Lymphocytes # 0.9 10^3/uL (0.8-4.8); Lymphocytes % 9.4 %; Mean Corpuscular HGB Conc 32.4 g/dL (30-55); Mean Corpuscular Hemoglobin 25.9 pg (27-33); Mean Corpuscular Volume 79.8 fl (85-98); Mean Platelet Volume 10.1 fL (7.4-10.4); Monocytes # 0.5 10^3/uL (0.2-0.9); Monocytes % 5.5 %; Neutrophils # 7.48 10^3/uL (1.8-7.7); Neutrophils % 82.4 %; Nucleated Red Blood Cells % 0 %; Platelet Count 357 10^3/cmm (157-399); Red Blood Count 3.52 10^6/uL (3.85-5.65); Red Cell Distribution Width 14.7 % (12.1-15.1); White Blood Count 9.08 10^3/uL (3.29-11.43)
[2024-06-21] MEDS: pantoprazole 40 mg SDV IVP ×2 (08:41→16:38)
[2024-06-21] MEDS: sennosides-docusate Tablet 2 TAB PO ×2 (08:41→16:38)
[2024-06-21] MEDS: iron sucrose 200 MG in sodium chloride 0.9% (100 ml) 100 ML 220 MG IV (11:48)
[2024-06-21] MEDS: ondansetron 2 mg/ML SDV 2 mL 4 MG IVP (12:26)
--- NOTE | 2024-06-21 14:12 | P.PN_ITS ---
Subjective 2 Subjective: Laying in bed appearing comfortable at this time denies any complaints. Discussed with her regarding staying in the hospital for IV iron for another day. Vitals/I&O/Wt Last Vital Signs Temp 98.3 F 06/21/24 07:38 Pulse 95 06/21/24 14:05 Resp 17 06/21/24 14:05 BP 139/70 06/21/24 07:38 Pulse Ox 93 06/21/24 14:05 O2 Del Method Room Air 06/21/24 14:05 06/20/24 06/21/24 06/21/24 22:59 06:59 14:59 Intake Total 120 / 120 840 / 960 590 / 590 Balance 120 / 120 840 / 960 590 / 590 Weight last 48 hrs Weight 51.483 kg Weight 51.398 kg Weight 48.988 kg Physical Exam 2 Narrative: Awake and alert GCS 15 No signs of seizure No sign of meningitis Laying in bed appearing comfortable at this time. Denies any complaints. S1, S2 Currently on room air Nonfocal neuroexam Pleasant and cooperative No sign of edema of lower extremity Abdomen soft S1, S2 Data 06/21/24 06:13 06/21/24 06:13 A&P Assessment and plan (1) Chronic kidney disease: Qualifiers: Chronic kidney disease stage: unspecified stage Qualified Code(s): N 18.9 - Chronic kidney disease, unspecified (2) Anemia: (3) Rib fracture: (4) Rib injury: (5) Syncope: Plan Recurrent syncope Patient has finished Holter monitoring in the past Concern for POTS This time it is possible secondary to severe anemia, check orthostatics Requested PRBC Patient is not endorsing hematemesis hematuria or dark-colored stools Not on anticoagulating agent or antiplatelets Syncope likely orthostatic Hold off on diuretics Does not look fluid overloaded Preserved action fraction Lives with her family Will keep her on cardiac diet Check stool studies Add Protonix Full code Check orthostatics and physical therapy Multiple rib fractures secondary to recurrent falls Patient does not endorse to drinking alcohol Opioids along bowel regimen 06/21/2024 -Present saturation 3.9, high TIBC. Labs consistent with iron deficiency anemia. Hemoglobin is 9.1 status post 2 units. Does have a low MCV. I will check hemoglobin electrophoresis. I do not believe she has ever seen hematology. She states she has always been anemic. ? Patient does have a UTI. I will start ceftriaxone daily. She did receive 1 dose yesterday. ?Await urine culture ?Plan to discharge home in next 24 to 48 hours once urine culture results. Attestations 2 Medical Necessity Statement*: Anticipating discharge within 48 hours Diagnoses Chronic kidney disease, unspecified CKD stage N18.9 Chronic kidney disease stage: unspecified stage Other iron deficiency anemia D64.9 Rib fracture S22.39XA Rib injury S29.9XXA Syncope R55
[2024-06-21] MEDS: cefTRIAXone 1,000 mg SDV 1000 MG IVP (16:38)
[2024-06-22] VITALS (13 sets, daily range): BP systolic 132–182; BP diastolic 61–73; PULSE 77–90; RESP 13–18; TEMP 36.4–36.9; O2SAT 84–93
[2024-06-22 03:52] LABS: Basophils % 0.5 %; Eosinophils # 0.4 10^3/uL (0.0-0.8); Hematocrit 27.3 % (36-47); Lymphocytes % 16.5 %; Mean Corpuscular HGB Conc 31.1 g/dL (30-55); Mean Corpuscular Hemoglobin 25.4 pg (27-33); Mean Corpuscular Volume 81.5 fl (85-98); Mean Platelet Volume 9.8 fL (7.4-10.4); Monocytes # 0.5 10^3/uL (0.2-0.9); Monocytes % 8.6 %; Neutrophils # 3.96 10^3/uL (1.8-7.7); Neutrophils % 68.1 %; Nucleated Red Blood Cells % 0 %; Platelet Count 331 10^3/cmm (157-399); Red Blood Count 3.35 10^6/uL (3.85-5.65); Red Cell Distribution Width 15.5 % (12.1-15.1); White Blood Count 5.82 10^3/uL (3.29-11.43)
[2024-06-22 04:18] LABS: Anion Gap 13.5 (5-19); Blood Urea Nitrogen 21 mg/dL (8-23); Calcium 8.4 mg/dL (8.5-10.5); Carbon Dioxide 23 mmol/L (22-29); Chloride 104 mmol/L (98-107); Glucose 82 mg/dL (65-115); Osmolality Calculated 284 mOsm/kg (285-295); Potassium 4.5 mmol/L (3.5-5.1); Sodium 136 mmol/L (136-145)
[2024-06-22] MEDS: sennosides-docusate Tablet 2 TAB PO ×2 (09:12→17:10)
[2024-06-22] MEDS: morphine IR 15 mg Tablet PO (09:12)
[2024-06-22] MEDS: ondansetron 2 mg/ML SDV 2 mL 4 MG IVP (09:13)
[2024-06-22] MEDS: pantoprazole 40 mg SDV IVP ×2 (09:13→17:10)
--- NOTE | 2024-06-22 10:00 | PC.CHAP ---
Pastoral Care Encounter/Spiritual Assessment Type of Contact [] Declined rn allergy visit [] Patient/Family/Request visit [] Outpatient visit [] Follow-up visit [] Physician referral [] Code/Alert [X] Routine visit [] Staff referral [] Actively dying [] Patient sleeping [] Family support [] [] Out of room [] Palliative care [] [] Receiving care in room [] Pre-surgical visit [] Trauma [] Long length of stay [] ICU visit [] Other: Relational/Emotional Strength [X] Patient feels connected with others/family/visitors/staff [] Distress [] Loneliness/isolation [] Abandonment Spirituality of Patient [X] Person of Lizeth [] Attends Pentecostalism of their Lizeth [X] Believes in Prayer [] Reads Bible or Mandaeism materials [] There are Spiritual issues to be addressed Software Quality Tester Interventions [X] Prayer [X] Active listening [X] Non-anxious presence [] Spiritual/emotional support [] Crisis/trauma care [] Spiritual counseling [] Bereavement support [] Provided bereavement packet [] Provided Bible/devotional materials [] Provided toy/stuffed animal, coloring book to patient or family member [] Provided Communion [] Anointing/[place] [] Salvation [] Completed spiritual assessment [] Other: Impact on Illness or Injury [] Angry [] Fearful [] Anxious [] Often cries [] Exhaustion [] Unable to work [] Unable to attend moravian [] Unable to walk/stand [] Unable to read [] Unable to drive [] Unable to eat/drink [] Unable to sleep [] Unable to be with family [] Patient intubated [] Other: Summary P Time spent with patient 10 mIN
[2024-06-22] MEDS: FUROsemide 10 mg/mL SDV 2mL 20 MG IVP (13:23)
--- NOTE | 2024-06-22 14:49 | P.PN_ITS ---
Subjective 2 Subjective: Seen today. Patient is requiring 2 L oxygen and is desaturating down to the mid 80s without it. Does have a history of emphysema and is an active smoker. Family at bedside. Urine cultures pending at this time. Also has rib fractures. Difficult to take a deep breath. Vitals/I&O/Wt Last Vital Signs Temp 98.4 F 06/22/24 11:48 Pulse 87 06/22/24 14:00 Resp 18 06/22/24 11:48 BP 182/73 06/22/24 11:48 Pulse Ox 90 06/22/24 11:48 O2 Del Method Nasal Cannula 06/22/24 11:48 O2 Flow Rate 2 06/22/24 11:48 06/21/24 06/22/24 06/22/24 22:59 06:59 14:59 Intake Total 240 / 830 340 / 340 Balance 240 / 830 340 / 340 Weight last 48 hrs Weight 51.057 kg Weight 51.483 kg Weight 51.398 kg Physical Exam 2 Narrative: Awake and alert, on 2L NC GCS 15 No signs of seizure No sign of meningitis Laying in bed appearing comfortable at this time. Denies any complaints. S1, S2 Currently on room air Nonfocal neuroexam Pleasant and cooperative No sign of edema of lower extremity Abdomen soft S1, S2 Data 06/22/24 02:13 06/22/24 02:13 Micro: Microbiology 06/20/24 16:31 Urine Culture - Preliminary Urine,Clean Catch Gram Negative Rods A&P Assessment and plan (1) Chronic kidney disease: Qualifiers: Chronic kidney disease stage: unspecified stage Qualified Code(s): N 18.9 - Chronic kidney disease, unspecified (2) Anemia: (3) Rib fracture: (4) Rib injury: (5) Syncope: Plan Recurrent syncope Patient has finished Holter monitoring in the past Concern for POTS This time it is possible secondary to severe anemia, check orthostatics Requested PRBC Patient is not endorsing hematemesis hematuria or dark-colored stools Not on anticoagulating agent or antiplatelets Syncope likely orthostatic Hold off on diuretics Does not look fluid overloaded Preserved action fraction Lives with her family Will keep her on cardiac diet Check stool studies Add Protonix Full code Check orthostatics and physical therapy Multiple rib fractures secondary to recurrent falls Patient does not endorse to drinking alcohol Opioids along bowel regimen 06/21/2024 -Present saturation 3.9, high TIBC. Labs consistent with iron deficiency anemia. Hemoglobin is 9.1 status post 2 units. Does have a low MCV. I will check hemoglobin electrophoresis. I do not believe she has ever seen hematology. She states she has always been anemic. ? Patient does have a UTI. I will start ceftriaxone daily. She did receive 1 dose yesterday. ?Await urine culture ?Plan to discharge home in next 24 to 48 hours once urine culture results. 06/22/2024 -Continue IV iron x 3 days total. Stop date 06/23/2024 ? Hemoglobin electrophoresis has been ordered she may follow-up outpatient with hematology. Reticulocyte count is normal as well which should be high given her anemia. ? Urine culture will be available by tomorrow. Discussed with lab. ? Physical therapy evaluated patient. Home exercise program recommended. ? Plan to discharge home in next 24 hours. ? Will place on short prednisone course and azithromycin to treat for presumed COPD exacerbation. Does have mild rhonchi at bases. She may complete this regimen at home at discharge. -She will need home oxygen evaluation at discharge. Attestations 2 Medical Necessity Statement*: Anticipate discharge within 24 to 48 hours. Diagnoses Chronic kidney disease, unspecified CKD stage N18.9 Chronic kidney disease stage: unspecified stage Other iron deficiency anemia D64.9 Rib fracture S22.39XA Rib injury S29.9XXA Syncope R55
[2024-06-22] MEDS: azithromycin 250 mg Tablet 500 MG PO (15:30)
[2024-06-22] MEDS: cefTRIAXone 1,000 mg SDV 1000 MG IVP (15:30)
[2024-06-22] MEDS: predniSONE 20 mg Tablet 40 MG PO (15:30)
[2024-06-22] MEDS: ipratropium-albuterol 3 mL Neb INHALATION (15:43)
[2024-06-22] MEDS: iron sucrose 200 MG in sodium chloride 0.9% (100 ml) 100 ML 220 MG IV (16:02)
[2024-06-22 21:29] LABS: Hematocrit 28.8 % (35.0-45.0); Hemoglobin 9.2 g/dL (11.7-15.5); Hemoglobinopathy MCH 26.4 pg (27.0-33.0); Hemoglobinopathy MCV 82.8 fL (80.0-100.0); Hemoglobinopathy RDW 14.6 % (11.0-15.0); Red Blood Cell Count 3.48 Million/uL (3.80-5.10)
[2024-06-23] VITALS (17 sets, daily range): BP systolic 124–170; BP diastolic 65–78; PULSE 71–92; RESP 14–18; TEMP 36.6–36.8; O2SAT 90–98
[2024-06-23 04:41] LABS: Basophils % 0.3 %; Hematocrit 28.8 % (36-47); Lymphocytes # 0.5 10^3/uL (0.8-4.8); Mean Corpuscular HGB Conc 30.6 g/dL (30-55); Mean Corpuscular Hemoglobin 25.1 pg (27-33); Mean Corpuscular Volume 82.1 fl (85-98); Mean Platelet Volume 10.4 fL (7.4-10.4); Monocytes # 0.2 10^3/uL (0.2-0.9); Monocytes % 2.3 %; Neutrophils # 6.82 10^3/uL (1.8-7.7); Neutrophils % 91.1 %; Nucleated Red Blood Cells % 0 %; Platelet Count 346 10^3/cmm (157-399); Red Blood Count 3.51 10^6/uL (3.85-5.65); Red Cell Distribution Width 15.7 % (12.1-15.1); White Blood Count 7.48 10^3/uL (3.29-11.43)
[2024-06-23 05:04] LABS: Anion Gap 27.8 (5-19); Blood Urea Nitrogen 22 mg/dL (8-23); Calcium 8.7 mg/dL (8.5-10.5); Carbon Dioxide 20 mmol/L (22-29); Chloride 95 mmol/L (98-107); Creatinine Clr Calc Pharmacy 17.2641; Glucose 123 mg/dL (65-115); Magnesium 2.3 mg/dL (1.7-2.3); Osmolality Calculated 291 mOsm/kg (285-295); Potassium 4.8 mmol/L (3.5-5.1); Sodium 138 mmol/L (136-145)
[2024-06-23] MEDS: FUROsemide 10 mg/mL SDV 4mL 40 MG IVP (06:27)
[2024-06-23 06:47] LABS: NT Pro B Type Natriuretic Pept 751 pg/mL (0-450)
[2024-06-23] MEDS: ipratropium-albuterol 3 mL Neb INHALATION ×4 (07:25→20:04)
[2024-06-23] MEDS: azithromycin 250 mg Tablet 500 MG PO (08:49)
[2024-06-23] MEDS: predniSONE 20 mg Tablet 40 MG PO (08:49)
[2024-06-23] MEDS: sennosides-docusate Tablet 2 TAB PO ×2 (08:49→17:09)
[2024-06-23] MEDS: pantoprazole 40 mg SDV IVP ×2 (08:49→17:10)
--- NOTE | 2024-06-23 13:13 | P.PN_ITS ---
Subjective 2 Subjective: Patient still requiring 2 L nasal cannula. Appearing comfortable in bed. Hemoglobin stable. Urine culture has resulted. Vitals/I&O/Wt Last Vital Signs Temp 97.8 F 06/23/24 11:56 Pulse 82 06/23/24 11:56 Resp 16 06/23/24 11:56 BP 124/66 06/23/24 11:56 Pulse Ox 93 06/23/24 11:56 O2 Del Method Room Air 06/23/24 11:56 O2 Flow Rate 2 06/23/24 11:15 06/22/24 06/23/24 06/23/24 22:59 06:59 14:59 Intake Total 230 / 570 250 / 820 340 / 340 Balance 230 / 570 250 / 820 340 / 340 Weight last 48 hrs Weight 51.71 kg Weight 51.057 kg Physical Exam 2 Narrative: Awake and alert, on 2L NC GCS 15 No signs of seizure No sign of meningitis Laying in bed appearing comfortable at this time. Denies any complaints. S1, S2 Currently on room air Nonfocal neuroexam Pleasant and cooperative No sign of edema of lower extremity Abdomen soft S1, S2 Data 06/23/24 03:01 06/23/24 03:01 Micro: Microbiology 06/20/24 16:31 Urine Culture - Final Urine,Clean Catch Klebsiella pneumoniae Escherichia coli A&P Assessment and plan (1) Chronic kidney disease: Qualifiers: Chronic kidney disease stage: unspecified stage Qualified Code(s): N 18.9 - Chronic kidney disease, unspecified (2) Anemia: (3) Rib fracture: (4) Rib injury: (5) Syncope: Plan Recurrent syncope Patient has finished Holter monitoring in the past Concern for POTS This time it is possible secondary to severe anemia, check orthostatics Requested PRBC Patient is not endorsing hematemesis hematuria or dark-colored stools Not on anticoagulating agent or antiplatelets Syncope likely orthostatic Hold off on diuretics Does not look fluid overloaded Preserved action fraction Lives with her family Will keep her on cardiac diet Check stool studies Add Protonix Full code Check orthostatics and physical therapy Multiple rib fractures secondary to recurrent falls Patient does not endorse to drinking alcohol Opioids along bowel regimen 06/21/2024 -Present saturation 3.9, high TIBC. Labs consistent with iron deficiency anemia. Hemoglobin is 9.1 status post 2 units. Does have a low MCV. I will check hemoglobin electrophoresis. I do not believe she has ever seen hematology. She states she has always been anemic. ? Patient does have a UTI. I will start ceftriaxone daily. She did receive 1 dose yesterday. ?Await urine culture ?Plan to discharge home in next 24 to 48 hours once urine culture results. 06/22/2024 -Continue IV iron x 3 days total. Stop date 06/23/2024 ? Hemoglobin electrophoresis has been ordered she may follow-up outpatient with hematology. Reticulocyte count is normal as well which should be high given her anemia. ? Urine culture will be available by tomorrow. Discussed with lab. ? Physical therapy evaluated patient. Home exercise program recommended. ? Plan to discharge home in next 24 hours. ? Will place on short prednisone course and azithromycin to treat for presumed COPD exacerbation. Does have mild rhonchi at bases. She may complete this regimen at home at discharge. -She will need home oxygen evaluation at discharge. 06/23/2024 -She has completed IV iron x 3 days ? Hemoglobin electrophoresis pending. Follow-up with hematology at discharge ? Urine culture reveals Klebsiella and E. coli pansensitive. She may be discharged on cefdinir x 7 days total ? PT consult. Home exercise program recommended. ? Patient is hypoxic and requiring 2 L nasal cannula at this time. BNP 700. I did start her on Lasix. I will continue for another day. -Will check echocardiogram. Does have known diastolic dysfunction. ? She may or may not require oxygen at discharge ? Does also have severe emphysema. Continue on prednisone 40 x 5 days total, azithromycin x 5 days. ? If continues to be stable may be discharged in next 24 to 48 hours pending oxygen requirements. Attestations 2 Medical Necessity Statement*: Anticipate discharge within 24 to 48 hours. Diagnoses Chronic kidney disease, unspecified CKD stage N18.9 Chronic kidney disease stage: unspecified stage Other iron deficiency anemia D64.9 Rib fracture S22.39XA Rib injury S29.9XXA Syncope R55
[2024-06-23] MEDS: cefTRIAXone 1,000 mg SDV 1000 MG IVP (17:09)
[2024-06-23] MEDS: iron sucrose 200 MG in sodium chloride 0.9% (100 ml) 100 ML 220 MG IV (18:33)
[2024-06-24] VITALS (11 sets, daily range): BP systolic 147–193; BP diastolic 69–76; PULSE 67–78; RESP 14–18; TEMP 36.6–36.8; O2SAT 92–96
[2024-06-24 06:15] LABS: Basophils % 0.1 %; Eosinophils % 0.1 %; Hematocrit 28.1 % (36-47); Lymphocytes # 1.1 10^3/uL (0.8-4.8); Lymphocytes % 9.5 %; Mean Corpuscular HGB Conc 30.2 g/dL (30-55); Mean Corpuscular Hemoglobin 25.4 pg (27-33); Mean Corpuscular Volume 84.1 fl (85-98); Monocytes # 0.7 10^3/uL (0.2-0.9); Monocytes % 6.6 %; Neutrophils # 9.33 10^3/uL (1.8-7.7); Neutrophils % 83.3 %; Nucleated Red Blood Cells % 0 %; Platelet Count 323 10^3/cmm (157-399); Red Blood Count 3.34 10^6/uL (3.85-5.65); Red Cell Distribution Width 15.9 % (12.1-15.1)
[2024-06-24 06:36] LABS: Anion Gap 19.3 (5-19); Blood Urea Nitrogen 26 mg/dL (8-23); Calcium 8.8 mg/dL (8.5-10.5); Carbon Dioxide 20 mmol/L (22-29); Chloride 102 mmol/L (98-107); Creatinine Clr Calc Pharmacy 17.9695; Glucose 97 mg/dL (65-115); Magnesium 2.4 mg/dL (1.7-2.3); Osmolality Calculated 289 mOsm/kg (285-295); Phosphorus 4.6 mg/dL (2.5-4.5); Potassium 4.3 mmol/L (3.5-5.1); Sodium 137 mmol/L (136-145)
[2024-06-24] MEDS: ipratropium-albuterol 3 mL Neb INHALATION (07:51)
--- NOTE | 2024-06-24 09:11 | PC.CHAP ---
Pastoral Care Encounter/Spiritual Assessment Type of Contact [] Declined assembler tubing visit [] Patient/Family/Request visit [] Outpatient visit [] Follow-up visit [] Physician referral [] Code/Alert [x] Routine visit [] Staff referral [] Actively dying [] Patient sleeping [x] Family support [] [] Out of room [] Palliative care [] [] Receiving care in room [] Pre-surgical visit [] Trauma [] Long length of stay [] ICU visit [] Other: Relational/Emotional Strength [] Patient feels connected with others/family/visitors/staff [] Distress [] Loneliness/isolation [] Abandonment Spirituality of Patient [x] Person of Lizeth [] Attends Latter-Day of their Lizeth [x] Believes in Prayer [] Reads Bible or Christianity materials [] There are Spiritual issues to be addressed Heading Maker Interventions [x] Prayer [x] Active listening [] Non-anxious presence [] Spiritual/emotional support [] Crisis/trauma care [] Spiritual counseling [] Bereavement support [] Provided bereavement packet [x] Provided Bible/devotional materials [] Provided toy/stuffed animal, coloring book to patient or family member [] Provided Communion [] Anointing/[place] [] Salvation [x] Completed spiritual assessment [] Other: Impact on Illness or Injury [] Angry [] Fearful [] Anxious [] Often cries [] Exhaustion [] Unable to work [] Unable to attend buddhism [] Unable to walk/stand [] Unable to read [] Unable to drive [] Unable to eat/drink [] Unable to sleep [] Unable to be with family [] Patient intubated [] Other: Summary Time spent with patient 10 min
[2024-06-24] MEDS: pantoprazole 40 mg SDV IVP ×2 (11:15→17:17)
[2024-06-24] MEDS: azithromycin 250 mg Tablet 500 MG PO (11:15)
[2024-06-24] MEDS: sennosides-docusate Tablet 2 TAB PO ×2 (11:15→17:17)
[2024-06-24] MEDS: predniSONE 20 mg Tablet 40 MG PO (11:15)
--- NOTE | 2024-06-24 13:17 | USCV_ITS ---
Maile López Age: 78 Gender: F : 1945 Exam Date: 06/24/2024 10:02 Ordering Phys: Katya Paige MD Technologist: CT Exam Location: [facility] [place] Indication: hf BP: 128 / 75 HR: 74 Rhythm: Sinus Technical Quality: Adequate MEASUREMENTS (Male / Female) Normal Values 2D ECHO LVOT Diameter 2.0 cm LV Ejection Fraction MOD 4C 64.2 % LV Ejection Fraction MOD 2C 73.9 % LV Ejection Fraction 2C AL 74.3 % LA Diameter 3.6 cm RA Systolic Volume 4C AL 36.6 ml RA Systolic Volume 4C MOD 36.7 ml LA Sys Volume AL 39.9 cm cubed LA Sys Volume Index AL 29.8 cm cubed/m squared Aorta at Sinotubular Diameter 1.9 cm IVC Diameter 2.7 cm M-MODE LA Ao Ratio MM 1.3 AV Cusp Separation MM 2.2 cm DOPPLER AV Peak Velocity 157.0 cm/s LVOT Peak Velocity 93.0 cm/s AV Area Cont Eq vti 2.2 cm squared AV Area Cont Eq pk 1.9 cm squared MV Peak Velocity 114.0 cm/s MV Area PHT 3.9 cm squared Mitral E to A Ratio 0.8 TR Peak Velocity 307.5 cm/s TR Peak Gradient 37.8 mmHg TR Mean Velocity 226.0 cm/s TR Mean Gradient 23.1 mmHg TR Velocity Time Integral 82.8 cm PV Peak Velocity 149.5 cm/s FINDINGS Left Ventricle Normal left ventricular size, systolic function and wall thickness, with no regional wall motion abnormalities. Left ventricular ejection fraction is estimated at 60 %. Grade I/IV diastolic dysfunction (abnormal relaxation filling pattern), normal to mildly elevated filling pressures. Right Ventricle The right ventricle is normal in size and function. Right Atrium The right atrium is normal in size. Left Atrium The left atrium is normal in size. Mitral Valve Thickened mitral valve. No mitral valve stenosis. Moderate mitral valve regurgitation. Aortic Valve Structurally normal aortic valve without significant sclerosis or stenosis. There is no aortic regurgitation. Tricuspid Valve Structurally normal tricuspid valve without significant stenosis or regurgitation. Pulmonic Valve Structurally normal pulmonic valve without significant stenosis. There is no pulmonic regurgitation. Pericardium Normal pericardium without effusion. Aorta Normal ascending aorta dimension. IVC The inferior vena cava appears normal. CONCLUSIONS Normal left ventricular size, systolic function and wall thickness, with no regional wall motion abnormalities. Left ventricular ejection fraction is estimated at 60 %. Grade I/IV diastolic dysfunction (abnormal relaxation filling pattern), normal to mildly elevated filling pressures. Thickened mitral valve. No mitral valve stenosis. Moderate mitral valve regurgitation. There is no pericardial effusion. Right atrial pressure is around 5 mm of mercury. Curtis Shirley MD (Electronically Signed) Final Date: 24 June 2024 19:04 S
--- NOTE | 2024-06-24 13:23 | PC.SOCIAL ---
IMM Update pg 2 of IMM Updated and reviewed w/ patient. Copy provided and copy dated, initialed and placed in chart.
[2024-06-24] MEDS: cefTRIAXone 1,000 mg SDV 1000 MG IVP (17:17)
--- NOTE | 2024-06-24 17:27 | P.PN_ITS ---
Subjective 2 Subjective: No acute interim events. Awaiting echocardiogram. Urine output is not accurately charted. Medications: Reviewed: Yes Vitals/I&O/Wt Last Vital Signs Temp 97.8 F 06/24/24 15:41 Pulse 68 06/24/24 15:41 Resp 18 06/24/24 15:41 BP 150/76 06/24/24 15:41 Pulse Ox 92 06/24/24 15:41 O2 Del Method Room Air 06/24/24 15:41 O2 Flow Rate 1 06/24/24 07:51 06/24/24 06/24/24 06/24/24 06:59 14:59 22:59 Intake Total 200 / 770 720 / 720 Balance 200 / 770 720 / 720 Weight last 48 hrs Weight 50.666 kg Weight 51.71 kg Physical Exam 2 Narrative: General: No acute distress, AO x3 HEENT: PERRLA, pupils bilaterally equal and reactive, pallors not present Chest: Normal vesicular breath sounds, no added sounds, equal good air entry bilaterally CVS: S1-S2 regular, no murmurs, no tachycardia, no gallops, no rubs Abdomen: Soft, nontender, no organomegaly, bowel sounds present Neuro: No focal deficits, no facial deformity, AO x3, power 5/5 in all limbs Data 06/24/24 05:36 06/24/24 05:36 A&P Assessment and plan (1) Chronic kidney disease: Qualifiers: Chronic kidney disease stage: unspecified stage Qualified Code(s): N 18.9 - Chronic kidney disease, unspecified (2) Anemia: (3) Rib fracture: (4) Rib injury: (5) Syncope: Plan Recurrent syncope Patient has finished Holter monitoring in the past Concern for POTS This time it is possible secondary to severe anemia, check orthostatics Requested PRBC Patient is not endorsing hematemesis hematuria or dark-colored stools Not on anticoagulating agent or antiplatelets Syncope likely orthostatic Hold off on diuretics Does not look fluid overloaded Preserved action fraction Lives with her family Will keep her on cardiac diet Check stool studies Add Protonix Full code Check orthostatics and physical therapy Multiple rib fractures secondary to recurrent falls Patient does not endorse to drinking alcohol Opioids along bowel regimen 06/21/2024 -Present saturation 3.9, high TIBC. Labs consistent with iron deficiency anemia. Hemoglobin is 9.1 status post 2 units. Does have a low MCV. I will check hemoglobin electrophoresis. I do not believe she has ever seen hematology. She states she has always been anemic. ? Patient does have a UTI. I will start ceftriaxone daily. She did receive 1 dose yesterday. ?Await urine culture ?Plan to discharge home in next 24 to 48 hours once urine culture results. 06/22/2024 -Continue IV iron x 3 days total. Stop date 06/23/2024 ? Hemoglobin electrophoresis has been ordered she may follow-up outpatient with hematology. Reticulocyte count is normal as well which should be high given her anemia. ? Urine culture will be available by tomorrow. Discussed with lab. ? Physical therapy evaluated patient. Home exercise program recommended. ? Plan to discharge home in next 24 hours. ? Will place on short prednisone course and azithromycin to treat for presumed COPD exacerbation. Does have mild rhonchi at bases. She may complete this regimen at home at discharge. -She will need home oxygen evaluation at discharge. 06/23/2024 -She has completed IV iron x 3 days ? Hemoglobin electrophoresis pending. Follow-up with hematology at discharge ? Urine culture reveals Klebsiella and E. coli pansensitive. She may be discharged on cefdinir x 7 days total ? PT consult. Home exercise program recommended. ? Patient is hypoxic and requiring 2 L nasal cannula at this time. BNP 700. I did start her on Lasix. I will continue for another day. -Will check echocardiogram. Does have known diastolic dysfunction. ? She may or may not require oxygen at discharge ? Does also have severe emphysema. Continue on prednisone 40 x 5 days total, azithromycin x 5 days. ? If continues to be stable may be discharged in next 24 to 48 hours pending oxygen requirements. June 24, 2024. Patient is saturating 92% on room air today. Clinically appearing to be euvolemic. No further doses of Lasix today. Urine output is not accurately charted. Awaiting echocardiogram results. Once these are available, we will plan to discharge patient in the next 24 hours. Attestations 2 Medical Necessity Statement*: awaiting echo Coding Level of Care Code Acute Code for Chg Fwd Straight Forward/Low MDM includes number and complexity of problems actively addressed during encounter, amount and/or complexity of data reviewed/ordered and described risk of complication, morbidity or mortality of management as documented Diagnoses Chronic kidney disease, unspecified CKD stage N18.9 Chronic kidney disease stage: unspecified stage Other iron deficiency anemia D64.9 Rib fracture S22.39XA Rib injury S29.9XXA Syncope R55
--- NOTE | 2024-06-24 19:44 | PC.NURSE ---
pt had episode of bladder incontinence while transferring to [facility] [place]
[2024-06-24] MEDS: acetaminophen 500 mg Tablet PO (20:32)
[2024-06-25] VITALS (8 sets, daily range): BP systolic 154–186; BP diastolic 66–84; PULSE 62–70; RESP 16–18; TEMP 36.6–37.2; O2SAT 91–95
[2024-06-25 05:29] LABS: Basophils % 0.2 %; Eosinophils # 0.1 10^3/uL (0.0-0.8); Eosinophils % 0.9 %; Hematocrit 28.1 % (36-47); Lymphocytes # 1.7 10^3/uL (0.8-4.8); Lymphocytes % 16.3 %; Mean Corpuscular HGB Conc 29.9 g/dL (30-55); Mean Corpuscular Hemoglobin 25.3 pg (27-33); Mean Corpuscular Volume 84.6 fl (85-98); Mean Platelet Volume 10.1 fL (7.4-10.4); Monocytes # 0.9 10^3/uL (0.2-0.9); Monocytes % 8.4 %; Neutrophils # 7.74 10^3/uL (1.8-7.7); Neutrophils % 73.9 %; Nucleated Red Blood Cells % 0 %; Platelet Count 305 10^3/cmm (157-399); Red Blood Count 3.32 10^6/uL (3.85-5.65); Red Cell Distribution Width 15.8 % (12.1-15.1); White Blood Count 10.46 10^3/uL (3.29-11.43)
[2024-06-25 06:02] LABS: Alanine Aminotransferase 35 U/L (0-33); Albumin Level 3.6 g/dL (3.5-5.2); Alkaline Phosphatase 241 U/L (35-105); Aspartate Amino Transferase 21 U/L (0-32); Blood Urea Nitrogen 25 mg/dL (8-23); Calcium 8.7 mg/dL (8.5-10.5); Carbon Dioxide 21 mmol/L (22-29); Chloride 106 mmol/L (98-107); Creatinine Clr Calc Pharmacy 19.8901; Globulin 2.7 g/dL (1.3-4.6); Glucose 85 mg/dL (65-115); Osmolality Calculated 296 mOsm/kg (285-295); Sodium 141 mmol/L (136-145); Total Bilirubin 0.2 mg/dL (0.15-1.2); Total Protein 6.3 g/dL (6.6-8.7)
[2024-06-25] MEDS: azithromycin 250 mg Tablet 500 MG PO (10:33)
[2024-06-25] MEDS: pantoprazole DR 40 mg Tablet PO (10:33)
[2024-06-25] MEDS: predniSONE 20 mg Tablet 40 MG PO (10:33)
[2024-06-25] MEDS: sennosides-docusate Tablet 2 TAB PO (10:33)
--- NOTE | 2024-06-25 15:27 | P.DS_ITS ---
Discharge Providers Date of Admission: 06/23/24 13:18 Date of Discharge: June 25, 2024 Attending Provider at Admission: Katya Paige MD Attending Provider at Discharge: Paulina See MD Primary Care Provider: Laith Patel Diagnoses at Discharge Discharge Diagnosis (1) Chronic kidney disease: Status: Chronic Qualifiers: Chronic kidney disease stage: unspecified stage Qualified Code(s): N18.9 - Chronic kidney disease, unspecified (2) Anemia: Status: Chronic (3) Rib fracture: Status: Acute (4) Rib injury: Status: Acute (5) Syncope: Status: Acute Reason for Visit Reason for Visit: formerly [facility], [facility] Hospital Course Hospital Course Maile López is a 78 year old female recurrent syncope of unclear duration, labile HTN and HLD, presents to the hospital with a syncopal event. She was getting out of her couch and then felt like she passed out. There were no reported seizures. She had a pressure type sensation on the left side of her chest and was found to have a fracture of the ribs of uncertain chronicity affecting the left 4th through 8th ribs.. There was no underlying contusion or pneumonia. She had a hemoglobin of 5.5 upon admission. Patient denied any hematemesis hematuria. She is not typically on any blood thinners. Patient reported a longstanding history of anemia-had received blood transfusions in the past. States that she has never officially been given a cause for her anemia. Her last endoscopy and colonoscopy dated back to 2021 which had shown diverticulosis and duodenitis. Her hemoglobin at that time was also 6.6. She takes PPIs every day. She was admitted to the hospital on June 20, 2024 and received 2 units packed red blood cell transfusion. Her labs are consistent with iron deficiency anemia. Hemoglobin electrophoresis was sent due to concern for multiple myeloma. Labs also worsening creatinine over the past 2 years. Her baseline creatinine more recently has been between 1.5-2.0. She received IV iron for 3 days additionally. She is recommended to follow-up as outpatient with hematology. On June 21, 2024 she was noted to be hypoxic, history of emphysema was noted. Due to concern for COPD exacerbation she received a short course of prednisone and azithromycin. She is currently saturating 95% on room air. Likely she may have had atelectasis related to her rib fractures. urine culture was obtained which showed Klebsiella and E. coli which was pansensitive. She received ceftriaxone 1 g IV every 24 hours for the last 5 days. Antibiotics have been discontinued at discharge. Echocardiogram was checked due to suspicion for CHF. This showed normal LVEF systolic function and wall thickness. LVEF of 60%. Grade 1 diastolic dysfunction. She received a one-time dose of Lasix and has remained euvolemic thereafter. Her SBP ranging 180-190, amlodipine 5mg daily added. Physical Exam Narrative: General: No acute distress, AO x3, chronically ill appearing lady HEENT: PERRLA, pupils bilaterally equal and reactive, pallors not present Chest: Normal vesicular breath sounds, no added sounds, equal good air entry bilaterally CVS: S1-S2 regular, no murmurs, no tachycardia, no gallops, no rubs Abdomen: Soft, nontender, no organomegaly, bowel sounds present Discharge Data Studies Completed and Pending Completed Studies During Hospitalization Category Date Time Status CT chest wo con [id number] Stat Cat Scan 06/20/24 15:33 Completed XR shoulder LT min 2V* [id number] Stat Exams 06/20/24 15:33 Completed CV. echo complete* [id number] Routine Ultrasound 06/24/24 13:17 Completed Pending at discharge Category Date Time Status Thalassemia & Hemoglobinopathy Routine Lab 06/23/23 04:00 Received Radiology Impressions Chest CT 06/20/24 15:33 IMPRESSION: 1. Subacute mildly sclerotic nondisplaced fractures of the lateral left 4th-8th ribs. Remote posterior left 2nd and 3rd rib fractures . 2. Moderate severity emphysema . COMMENTS: The presence of pulmonary emphysema on CT is an independent risk factor for lung cancer. In the absence of a history or active diagnosis of lung cancer, it is recommended that this patient with emphysema be evaluated for enrollment in a low dose CT lung cancer screening program. Shoulder X-Ray 06/20/24 15:33 IMPRESSION: 1. No acute bony fracture or dislocation. 2. Decreased bone density. Chronic bony degenerative changes. 3. Left-sided pulmonary fibrosis. 4. Old left rib fractures. Laboratory Results WBC 10.46 10^3/uL (3.29-11.43) 06/25/24 05:05 RBC 3.32 10^6/uL (3.85-5.65) L 06/25/24 05:05 Hgb 8.40 g/dL (11.27-16.99) L 06/25/24 05:05 Hct 28.1 % (36-47) L 06/25/24 05:05 MCV 84.6 fl (85-98) L 06/25/24 05:05 MCH 25.3 pg (27-33) L 06/25/24 05:05 MCHC 29.9 g/dL (30-55) L 06/25/24 05:05 RDW 15.8 % (12.1-15.1) H 06/25/24 05:05 Plt Count 305 10^3/cmm (157-399) 06/25/24 05:05 MPV 10.1 fL (7.4-10.4) 06/25/24 05:05 Neut % (Auto) 73.9 % 06/25/24 05:05 Lymph % (Auto) 16.3 % 06/25/24 05:05 [place] % (Auto) 8.4 % 06/25/24 05:05 Eos % (Auto) 0.9 % 06/25/24 05:05 Baso % (Auto) 0.2 % 06/25/24 05:05 Reticulocyte % (Auto) 1.3 % (0.5-2.0) 06/20/24 16:16 Neut # (Auto) 7.74 10^3/uL (1.8-7.7) H 06/25/24 05:05 Lymph # (Auto) 1.7 10^3/uL (0.8-4.8) 06/25/24 05:05 [place] # (Auto) 0.9 10^3/uL (0.2-0.9) 06/25/24 05:05 Eos # (Auto) 0.1 10^3/uL (0.0-0.8) 06/25/24 05:05 Baso # (Auto) 0.0 10^3/uL (0.0-0.1) 06/25/24 05:05 Nucleated RBC % (auto) 0 % 06/25/24 05:05 Nucleated RBCs # 0.0 /100WBC 06/25/24 05:05 Hemoglobin A 97.9 % (>96.0) 06/21/24 06:13 Hemoglobin A2 Quant 2.1 % (2.0-3.2) 06/21/24 06:13 Hemoglobin C Not Reportable 06/21/24 06:13 Hemoglobin E Not Reportable 06/21/24 06:13 Hemoglobin F <1.0 % (<2.0) 06/21/24 06:13 Hemoglobin S Not Reportable 06/21/24 06:13 Hemoglobin Interpret See note 06/21/24 06:13 Hemoglobinopathy MCV 82.8 fL (80.0-100.0) 06/21/24 06:13 Hemoglobinopathy MCH 26.4 pg (27.0-33.0) L 06/21/24 06:13 Hemoglobinopathy RDW 14.6 % (11.0-15.0) 06/21/24 06:13 PT 12.10 SECONDS (12.1-14.9) 06/20/24 16:16 INR 0.83 (0.8-1.2) 06/20/24 16:16 APTT 29.3 SECONDS (23.9-36.7) 06/20/24 16:16 Hemoglobin Other Not Reportable 06/21/24 06:13 Hemoglobin Other 2 Not Reportable 06/21/24 06:13 Sodium 141 mmol/L (136-145) 06/25/24 05:05 Potassium 4.0 mmol/L (3.5-5.1) 06/25/24 05:05 Chloride 106 mmol/L (98-107) 06/25/24 05:05 Carbon Dioxide 21 mmol/L (22-29) L 06/25/24 05:05 Anion Gap 18.0 (5-19) 06/25/24 05:05 BUN 25 mg/dL (8-23) H 06/25/24 05:05 Creatinine 1.8 mg/dL (0.5-0.9) H 06/25/24 05:05 GFR Calculation Not Reportable 06/25/24 05:05 Glucose 85 mg/dL (65-115) 06/25/24 05:05 Calculated Osmolality 296 mOsm/kg (285-295) H 06/25/24 05:05 Lactic Acid 1.0 mmol/L (0.5-2.2) 06/20/24 16:16 Calcium 8.7 mg/dL (8.5-10.5) 06/25/24 05:05 Phosphorus 4.6 mg/dL (2.5-4.5) H 06/24/24 05:36 Magnesium 2.4 mg/dL (1.7-2.3) H 06/24/24 05:36 Iron 15 ug/dL (37-145) L 06/20/24 17:05 TIBC 414 mcg/dl 06/20/24 17:05 % Saturation 3.6 % (20-50) L 06/20/24 17:05 Unsat Iron Binding 399 ug/dL (112-347) H 06/20/24 17:05 Ferritin 8 ng/mL (15-150) L 06/20/24 17:05 Total Bilirubin 0.2 mg/dL (0.15-1.2) 06/25/24 05:05 AST 21 U/L (0-32) 06/25/24 05:05 ALT 35 U/L (0-33) H 06/25/24 05:05 Alkaline Phosphatase 241 U/L (35-105) H 06/25/24 05:05 Lactate Dehydrogenase 218 U/L (135-214) H 06/20/24 17:05 Troponin T Baseline 22 ng/L (0-10) H 06/20/24 16:16 Troponin T 120 Minute 22.28 ng/L (0-10) H 06/20/24 19:16 Delta Troponin T 0.28 ABS# (0-10) 06/20/24 19:16 Troponin T Hi Sens 6Hr 20.15 ng/L (0-10) H 06/20/24 22:22 Troponin T Hi Sens 6Hr Delta -1.85 ng/L (0-12) L 06/20/24 22:22 C-Reactive Protein 3.0 mg/L (0.0-4.9) 06/21/24 06:13 NT-Pro-B Natriuret Pep 751 pg/mL (0-450) H 06/23/24 03:01 Total Protein 6.3 g/dL (6.6-8.7) L 06/25/24 05:05 Albumin 3.6 g/dL (3.5-5.2) 06/25/24 05:05 Globulin 2.7 g/dL (1.3-4.6) 06/25/24 05:05 Vitamin B12 259 pg/mL (232-1245) 06/20/24 16:16 Folate 10.0 ng/mL (4.8-37.3) 06/20/24 17:05 Urine Color Yellow (Yellow) 06/20/24 16:31 Urine Appearance Clear (CLEAR) 06/20/24 16:31 Urine pH 5.0 (5-7) 06/20/24 16:31 Ur Specific [place] 1.010 (1.005-1.030) 06/20/24 16:31 Urine Protein Negative (Negative) 06/20/24 16:31 Urine Glucose (UA) Negative (Normal) 06/20/24 16:31 Urine Ketones Negative (Negative) 06/20/24 16:31 Urine Blood Negative (Negative) 06/20/24 16: Urine Nitrate Positive (Negative) A 06/20/24 16:31 Urine Bilirubin Negative (Negative) 06/20/24 16: Urine Urobilinogen 0.2 mg/dL (Negative) 06/20/24 16:31 Ur Leukocyte Esterase Trace (Negative) A 06/20/24 16:31 Urine RBC 0-2 /hpf (0-2) 06/20/24 16:31 Urine WBC 6-10 /hpf (0-5) 06/20/24 16:31 Ur Squamous Epith Cells 0-5 /hpf (0-5) 06/20/24 16:31 Amorphous Sediment Not Reportable 06/20/24 16:31 Urine Bacteria 4+ /hpf (NONE) H 06/20/24 16:31 Hyaline Casts 1.21 /lpf 06/20/24 16:31 Blood Type A Positive 06/20/24 17:05 Rho(D) Type Rh positive 06/20/24 17:05 Antibody Screen Negative 06/20/24 17:05 Crossmatch See Detail 06/20/24 17:05 Vitals Last Vital Signs Temp 98.4 F 06/25/24 14:25 Pulse 65 06/25/24 14:25 Resp 17 06/25/24 14:25 BP 162/84 06/25/24 14:25 Pulse Ox 95 06/25/24 14:25 O2 Del Method Room Air 06/25/24 12:00 O2 Flow Rate 1 06/24/24 07:51 Discharge Plan Discharge Patient Disposition: Home Condition: Stable Prescriptions: New amlodipine 5 mg tablet 5 mg PO DAILY 30 Days Qty: 30 0RF lidocaine 4 % adhesive patch,medicated 1 patch topical DAILY PRN (Reason: pain) Qty: 10 0RF Continued simvastatin 20 mg tablet 20 mg PO DAILY primidone 50 mg tablet 50 mg PO BID amitriptyline 25 mg tablet 25 mg PO BEDTIME nitroglycerin 0.4 mg tablet, sublingual 0.4 mg sublingual PRN PRN (Reason: Chest Pain) tizanidine 4 mg tablet 4 mg PO Q6H PRN (Reason: Spasms) potassium chloride 10 mEq tablet extended release 10 meq PO DAILY dexlansoprazole 60 mg capsule,biphase delayed releas 60 mg PO DAILY cilostazol 50 mg tablet 50 mg PO BID omeprazole 40 mg capsule,delayed release(DR/EC) 40 mg PO DAILY furosemide 20 mg tablet See Rx Instructions .ROUTE .COMPLEX Rx Instructions: TAKE 2 TABLETS BY MOUTH IN THE MORNING THEN TAKE 1 TABLET BY MOUTH IN THE EVENING. Discontinued naproxen 500 mg tablet 500 mg PO BID Discharge Orders: Discharge Order (Routine); Ordered 06/25/24 Ordered By: Paulina See Other Ambulatory Orders: DME: [facility] (Order) Location: None Selected Ordered By: Katya Paige DME: [facility] (Order) Location: None Selected Ordered By: Katya Paige [place] [facility] [place] [facility] [place] [facility] ([facility]) [Outside] Laith Patel DO [Primary Care Provider] - 07/02/24 9:45 am Kingsley Petersen MD [Hospitalist] - (chronic longstanding anemia) Discharge Diet: Usual diet Discharge Activity: Resume usual activity Patient Instructions: Amlodipine (By mouth), Anemia (GEN), Opioid Safety Discharge Attestations Time Spent in Discharge Care*: greater than 30 min Quality Metrics Clinical Quality Measures [ No reported AMI, CVA or VTE this stay] Coding Level of Care Code Acute Code for Chg Fwd Diagnoses Chronic kidney disease, unspecified CKD stage N18.9 Chronic kidney disease stage: unspecified stage Other iron deficiency anemia D64.9 Rib fracture S22.39XA Rib injury S29.9XXA Syncope R55
[2024-06-29 05:24] LABS: HPLC Confirms; Hematocrit 28.5 % (35.0-45.0); Hemoglobin 8.5 g/dL (11.7-15.5); Hemoglobinopathy Ferritin 269 ng/mL (16-288); Hemoglobinopathy MCH 25.3 pg (27.0-33.0); Hemoglobinopathy MCHC 29.8 g/dL (32.0-36.0); Hemoglobinopathy MCV 84.8 fL (80.0-100.0); Hemoglobinopathy RDW 15.3 % (11.0-15.0); Red Blood Cell Count 3.36 Mill/uL (3.80-5.10)
== END 2024-06-25 14:23 | disposition home or self-care (01) | DRG 812 ==
LOC: ER 18:05 → MEDSURG 18:46
PROVIDERS: Internal Medicine; Admitting Provider Internal Medicine; Emergency Provider Emergency Medicine; PCP Family Medicine; Visit Provider Student in an Organized Health Care Education/Training Program
DX: D50.9 Iron deficiency anemia, unspecified (principal); J44.1 Chronic obstructive pulmonary disease with (acute) exacerbation; J98.11 Atelectasis; S22.42XA Multiple fractures of ribs, left side, initial encounter for closed fracture; N39.0 Urinary tract infection, site not specified; I11.0 Hypertensive heart disease with heart failure; N18.9 Chronic kidney disease, unspecified; D63.1 Anemia in chronic kidney disease; W01.0XXA Fall on same level from slipping, tripping and stumbling without subsequent striking against object, initial encounter; G90.A Postural orthostatic tachycardia syndrome [POTS]; E78.5 Hyperlipidemia, unspecified; J43.9 Emphysema, unspecified; B96.1 Klebsiella pneumoniae [K. pneumoniae] as the cause of diseases classified elsewhere; B96.20 Unspecified Escherichia coli [E. coli] as the cause of diseases classified elsewhere; F17.210 Nicotine dependence, cigarettes, uncomplicated; I25.10 Atherosclerotic heart disease of native coronary artery without angina pectoris; M25.512 Pain in left shoulder; Z82.3 Family history of stroke
CPT/HCPCS: 36415; 36430; 36569; 36573; 71250; 73030; 80048; 80053; 81001; 82607; 82728; 82746; 83020; 83540; 83550; 83605; 83615; 83735; 83880; 84100; 84484; 85014; 85018; 85025; 85041; 85045; 85610; 85730; 86140; 86850; 86900; 86920; 87077; 87086; 87186; 93005; 93010; 93306; 94640; 94664; 96374; 97110; 97116; 97161; 99222; 99232; 99285; C1751; G0378; J0360; J0696; J1756; J1940; J2405; J2470; J7512; P9016; P9040; Q0144

== ENCOUNTER 2024-08-20 17:42 | Emergency (ER) | payer MEDICARE, MEDICAID, SELFPAY ==
[2024-08-20 18:03] VITALS: BP 154/74; PULSE 82; RESP 16; TEMP 37; O2SAT 98
--- NOTE | 2024-08-20 18:09 | XRR_ITS ---
PROCEDURE INFORMATION: Exam: XR Left Knee Exam date and time: 08/20/2024 6:25 PM Age: 78 years old Clinical indication: Pain; Knee; Left; Additional info: Injury/pain TECHNIQUE: Imaging protocol: Radiologic exam of the left knee. Views: 3 views. COMPARISON: No relevant prior studies available. FINDINGS: Bones/joints: Normal. Soft tissues: Normal. XR/XR knee LT 3V* [id number] IMPRESSION: No acute findings.
--- NOTE | 2024-08-20 18:21 | W.ED.EXTPRO ---
HPI - Extremity Problem General: Chief complaint: Extremity Injury, Lower Stated complaint: L leg pain Time Seen by Provider: 08/20/24 18:15 Source: patient Mode of arrival: wheelchair Limitations: no limitations History of Present Illness: Patient is a 78-year-old female who presents the emergency department complaining of left knee pain for the past 2 days. She states that she got out of bed and twisted her left knee, initially was able to ambulate but slowly has had worsening of pain and now states it is too painful to walk. Does arrive with an Sammy wrap. She has not taken anything for the pain. No previous surgeries, fractures, or other reported injuries to the left knee. No radiation of the pain, states that it is primarily located just below the left patella. No calf swelling or edema. No distal neurological symptoms or deficits reported. Stating the pain currently is an 8/10. MD Complaint: joint pain Onset (ago): day(s) Pain Consistency: constant Location: left and knee Severity scale (1-10): 8 Radiation: none Exacerbating factors: weight bearing and walking Associated symptoms: Reports no associated symptoms; Deny chest pain, fever(s) or rash Related Data Home Medications ?Medication ?Instructions ?Recorded ?Confirmed amitriptyline 25 mg tablet 25 mg PO BEDTIME 09/09/19 06/20/24 nitroglycerin 0.4 mg sublingual 0.4 mg sublingual PRN PRN Chest 09/09/19 06/20/24 tablet Pain primidone 50 mg tablet 50 mg PO BID 07/16/20 06/20/24 simvastatin 20 mg tablet 20 mg PO DAILY 01/04/21 06/20/24 tizanidine 4 mg tablet 4 mg PO Q6H PRN Spasms 07/30/21 06/20/24 dexlansoprazole 60 mg 60 mg PO DAILY 07/07/23 06/20/24 capsule,biphase delayed release potassium chloride 10 mEq 10 meq PO DAILY 07/07/23 06/20/24 tablet,extended release cilostazol 50 mg tablet 50 mg PO BID 06/20/24 06/20/24 furosemide 20 mg tablet See Rx Instructions .Route .COMPLEX 06/20/24 06/20/24 omeprazole 40 mg capsule,delayed 40 mg PO DAILY 06/20/24 06/20/24 release Previous Rx's ?Medication ?Instructions ?Recorded lidocaine 4 % topical patch 1 patch topical DAILY PRN pain #10 06/25/24 ea Allergies Allergy/AdvReac Type Severity Reaction Status Date / Time iodine Allergy Unknown Verified 08/20/24 18:09 Penicillins Allergy ALGY-Anaphy Verified 08/20/24 18:09 laxis Review of Systems General: Reports: 10 or more systems reviewed and unremarkable except in HPI and below Const: Denies: fever(s) or chills Card: Denies: chest pain Resp: Denies: dyspnea or productive cough GI: Denies: abdominal pain, nausea, vomiting or diarrhea : Denies: flank pain Musc: Reports: joint pain (left knee) and limited range of motion; Denies: neck pain, back pain, extremity pain, extremity swelling, joint swelling, joint redness, joint warmth or muscle weakness Skin/Breast: Denies: rash Neuro: Denies: headache(s), numbness in extremities or weakness in extremities PFSH ED PFSH: Medical History Hypotension History of echocardiogram 09/10/2019 EF 69%, I/IV diastolic dysfunction History of Holter monitoring 05/2020 baseline rhythm sinus, 74 bpm, no arrhythmias History of stress test 08/2020 normal myocardial perfusion imaging, no ekg changes History of hypertension in past Hyperlipidemia Digoxin toxicity Bacteremia due to Escherichia coli (~08/2019) Acute upper gastrointestinal bleeding (~06/2021) required transfusion 3 units pRBCs Coronary artery disease Chronic kidney disease Postural orthostatic tachycardia syndrome COPD (chronic obstructive pulmonary disease) Anemia Surgical History History of cardiac catheterization 2020 - moderate mid circumflex and LAD lesions though not significant by FFR Status post laparoscopic cholecystectomy (04/14/21) H/O ventral hernia repair Status post right inguinal hernia repair H/O esophagogastroduodenoscopy (07/30/21) Duodenitis Status post colonoscopy (07/30/21) Diverticulosis History of appendectomy History of 3 sections Family History Father Stroke Denies family history of Diabetes CAD (coronary artery disease) Family history of premature coronary artery disease Social History Smoking and tobacco/nicotine status: current some day tobacco/nicotine user cigarettes Packs smoked per day: 1.5 Years cigarettes smoked: 57 Quit status (tobacco/nicotine): not considering quitting Alcohol intake: never Substance/Drug Use: never Lives independently: Yes Household members: spouse Marital status: Current occupational status: retired Do you think of yourself as: Straight/Heterosexual Current gender identity: Female Physical Exam Const: COMMON NORMALS: no acute distress, patient oriented x3, no limitations, healthy appearing, alert and well nourished HENMT: COMMON NORMALS: normocephalic and atraumatic HEAD & SCALP: normocephalic and atraumatic Neck/C-Spine: COMMON NORMALS: full ROM, supple and no meningeal signs Resp: COMMON NORMALS: normal respiratory effort, No use of accessory muscles and clear to auscultation bilaterally AUSCULTATION: clear to auscultation bilaterally Cardio: COMMON NORMALS: regular rate and regular rhythm RATE: regular rate RHYTHM: regular rhythm Extremity: COMMON NORMALS: capillary refill normal, no joint enlargement and no clubbing, cyanosis or edema NARRATIVE EXTREMITY EXAM: Tenderness to palpation over left tibial tubercle. No swelling of the left knee, bruising, or other signs of trauma. No joint laxity. Distal neurovascular status intact. Range of motion actively and passively causes pain. Neuro: COMMON NORMALS: patient oriented x3, moves all extremities, no focal motor deficits and no sensory deficits noted SENSORIUM/ORIENTATION: Yes alert MENINGEAL SIGNS: Yes no meningeal signs Skin: COMMON NORMALS: no rashes or lesions noted GENERAL SKIN EXAM: no rashes or lesions noted Course Vital Signs: Vital signs: Vital Signs Temperature 98.6 F 08/20/24 18:03 Pulse Rate 82 08/20/24 18:03 Respiratory Rate 16 08/20/24 18:03 Blood Pressure 154/74 08/20/24 18:03 Pulse Oximetry 98 08/20/24 18:03 Oxygen Delivery Me thod Room Air 08/20/24 18:03 MDM - Extremity (Nontraumatic) Medical Decision Making Patient presented with left knee pain for the past couple days, reported twisting it when she got out of bed. On exam was only tender to palpation over the tibial tubercle, overall no joint laxity or other concerning physical exam findings. X-ray was normal. Suspect contusion versus sprain will have her follow-up with orthopedics if she continues to have pain for MRI/further testing. In the meantime is given compression bandage here and informed to treat conservatively at home. Family agrees with this plan will be discharged at this time. Lab Data Radiology Impressions Knee X-Ray 08/20/24 18:09 IMPRESSION: No acute findings. All radiology interpretation(s) finalized by discharge Discharge Plan Discharge Patient Disposition: Home Clinical Impression: Acute pain of left knee Condition: Stable Prescriptions: No Action simvastatin 20 mg tablet 20 mg PO DAILY primidone 50 mg tablet 50 mg PO BID amitriptyline 25 mg tablet 25 mg PO BEDTIME nitroglycerin 0.4 mg tablet, sublingual 0.4 mg sublingual PRN PRN (Reason: Chest Pain) tizanidine 4 mg tablet 4 mg PO Q6H PRN (Reason: Spasms) potassium chloride 10 mEq tablet extended release 10 meq PO DAILY dexlansoprazole 60 mg capsule,biphase delayed releas 60 mg PO DAILY cilostazol 50 mg tablet 50 mg PO BID omeprazole 40 mg capsule,delayed release(DR/EC) 40 mg PO DAILY furosemide 20 mg tablet See Rx Instructions .ROUTE .COMPLEX Rx Instructions: TAKE 2 TABLETS BY MOUTH IN THE MORNING THEN TAKE 1 TABLET BY MOUTH IN THE EVENING. lidocaine 4 % adhesive patch,medicated 1 patch topical DAILY PRN (Reason: pain) Qty: 10 0RF Discharge Orders: Discharge ED (Routine); Ordered 08/20/24 Ordered By: Aiden Andino Referrals: Laith Patel DO [Primary Care Provider] - Patient Instructions: Knee Pain (ED) Activity Restrictions/Additional Instructions: Rest, ice, compression, and elevation. Ibuprofen and Tylenol for pain. Range of motion exercises and weightbearing as tolerated. Follow-up with orthopedics. Return with any new or worsening. 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
[2024-08-20 19:34] VITALS: BP 166/75; PULSE 80; O2SAT 97
== END 2024-08-20 19:36 | disposition home or self-care (01) ==
PROVIDERS: Emergency Provider Physician Assistant; PCP Family Medicine
DX: M25.562 Pain in left knee (principal); F17.210 Nicotine dependence, cigarettes, uncomplicated; J44.9 Chronic obstructive pulmonary disease, unspecified; E78.5 Hyperlipidemia, unspecified; I25.10 Atherosclerotic heart disease of native coronary artery without angina pectoris; N18.9 Chronic kidney disease, unspecified
CPT/HCPCS: 73562; 99283

== ENCOUNTER 2024-11-23 15:14 | Emergency (ER) | payer MEDICARE, MEDICAID, SELFPAY ==
[2024-11-23 15:15] VITALS: BP 175/75; PULSE 86; RESP 17; TEMP 36.8; O2SAT 98; BMI 21.1
--- NOTE | 2024-11-23 15:18 | ECG_ITS ---
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
--- NOTE | 2024-11-23 15:18 | XRR_ITS ---
PROCEDURE INFORMATION: Exam: XR Left Hip Exam date and time: 11/23/2024 3:40 PM Age: 79 years old Clinical indication: Left hip; Lt hip pain post fall TECHNIQUE: Imaging protocol: Radiologic exam of the left hip. Views: 2 or 3 views hip with pelvis when performed. COMPARISON: CT abdomen pelvis wo con [id number] 08/17/2021 11:57 AM FINDINGS: Bones/joints: Unremarkable. No acute fracture. Soft tissues: Unremarkable. XR/XR hip LT 2-3V wo/w pel* [id number] IMPRESSION: No acute findings.
--- NOTE | 2024-11-23 15:18 | XRR_ITS ---
PROCEDURE INFORMATION: Exam: XR Chest Exam date and time: 11/23/2024 3:40 PM Age: 79 years old Clinical indication: Shortness of breath; SOB; Cough; Lt hip pain post fall TECHNIQUE: Imaging protocol: Radiologic exam of the chest. Views: 1 view. COMPARISON: CT chest [facility] [id number] 06/20/2024 4:36 PM FINDINGS: Lungs: Unremarkable. No consolidation. Pleural spaces: Unremarkable. No pleural effusion. No pneumothorax. Heart/Mediastinum: Unremarkable. No cardiomegaly. Bones/joints: Unremarkable. XR/XR chest 1V portable [id number] IMPRESSION: No acute findings.
--- NOTE | 2024-11-23 15:20 | W.ED.FALL ---
HPI - Fall General: Chief Complaint: Extremity Injury, Lower Stated Complaint: left hip pain s/p fall Time Seen by Provider: 11/23/24 15:16 Source: patient and EMS Mode of arrival: EMS Limitations: no limitations History of Present Illness: 79-year-old female states that she had had a fall at home that she is get out of the bathroom and fell she had another fall also she is legally blind. She had some mild weakness denies any syncopal event denies hitting her head does have pain in her left hip she rates a 6 out of 10 Associated symptoms-after fall: Denies abdominal pain, chest pain, headache(s) or neck pain Related Data Home Medications ?Medication ?Instructions ?Recorded ?Confirmed amitriptyline 25 mg tablet 25 mg PO BEDTIME 09/09/19 11/23/24 nitroglycerin 0.4 mg sublingual 0.4 mg sublingual PRN PRN Chest 09/09/19 11/23/24 tablet Pain primidone 50 mg tablet 50 mg PO BID 07/16/20 11/23/24 simvastatin 20 mg tablet 20 mg PO DAILY 01/04/21 11/23/24 tizanidine 4 mg tablet 4 mg PO Q6H PRN Spasms 07/30/21 11/23/24 dexlansoprazole 60 mg 60 mg PO DAILY 07/07/23 11/23/24 capsule,biphase delayed release potassium chloride 10 mEq 10 meq PO DAILY 07/07/23 11/23/24 tablet,extended release cilostazol 50 mg tablet 50 mg PO BID 06/20/24 11/23/24 furosemide 20 mg tablet See Rx Instructions .Route .COMPLEX 06/20/24 11/23/24 omeprazole 40 mg capsule,delayed 40 mg PO DAILY 06/20/24 11/23/24 release amlodipine 5 mg tablet 5 mg PO DAILY 11/23/24 11/23/24 naproxen 500 mg tablet 500 mg PO BID 11/23/24 11/23/24 nystatin 100,000 unit/gram topical 1 applic topical BID 11/23/24 11/23/24 ointment triamcinolone acetonide 0.1 % 1 applic topical BID 11/23/24 11/23/24 topical ointment Previous Rx's ?Medication ?Instructions ?Recorded cephalexin 500 mg capsule 500 mg PO TID 7 days #21 caps 11/23/24 Allergies Allergy/AdvReac Type Severity Reaction Status Date / Time iodine Allergy Unknown Verified 08/20/24 18:09 Penicillins Allergy ALGY-Anaphy Verified 08/20/24 18:09 laxis Review of Systems Const: Denies: fever(s), chills, body aches or change in appetite ENMT: Denies: throat pain or dental pain Card: Denies: chest pain Resp: Denies: dyspnea GI: Denies: abdominal pain, nausea, vomiting or diarrhea Musc: Reports: extremity pain; Denies: neck pain or back pain Skin/Breast: Denies: rash Neuro: Denies: headache(s) PFSH ED PFSH: Medical History Hypotension History of echocardiogram 09/10/2019 EF 69%, I/IV diastolic dysfunction History of Holter monitoring 05/2020 baseline rhythm sinus, 74 bpm, no arrhythmias History of stress test 08/2020 normal myocardial perfusion imaging, no ekg changes History of hypertension in past Hyperlipidemia Digoxin toxicity Bacteremia due to Escherichia coli (~08/2019) Acute upper gastrointestinal bleeding (~06/2021) required transfusion 3 units pRBCs Coronary artery disease Chronic kidney disease Postural orthostatic tachycardia syndrome COPD (chronic obstructive pulmonary disease) Anemia Surgical History History of cardiac catheterization 2020 - moderate mid circumflex and LAD lesions though not significant by FFR Status post laparoscopic cholecystectomy (04/14/21) H/O ventral hernia repair Status post right inguinal hernia repair H/O esophagogastroduodenoscopy (07/30/21) Duodenitis Status post colonoscopy (07/30/21) Diverticulosis History of appendectomy History of 3 sections Family History Father Stroke Denies family history of Diabetes CAD (coronary artery disease) Family history of premature coronary artery disease Social History Smoking and tobacco/nicotine status: current some day tobacco/nicotine user cigarettes Packs smoked per day: 1.5 Years cigarettes smoked: 57 Quit status (tobacco/nicotine): not considering quitting Alcohol intake: never Substance/Drug Use: never Lives independently: Yes Household members: spouse Marital status: Current occupational status: retired Do you think of yourself as: Straight/Heterosexual Current gender identity: Female Physical Exam Const: COMMON NORMALS: no acute distress, patient oriented x3 and healthy appearing HENMT: COMMON NORMALS: normocephalic and atraumatic HEAD & SCALP: normocephalic and atraumatic Eye: COMMON NORMALS: conjunctivae normal CONJUNCTIVA: Yes conjunctivae normal Neck/C-Spine: COMMON NORMALS: full ROM and supple CERVICAL SPINE: Yes cervical ROM normal and No Cervical spine tenderness Chest: COMMONS NORMALS: normal inspection of the chest Resp: COMMON NORMALS: normal respiratory effort Cardio: COMMON NORMALS: regular rate, regular rhythm and No murmurs present (Cardio) RATE: regular rate RHYTHM: regular rhythm Extremity: NARRATIVE EXTREMITY EXAM: tenderness to left hip Neuro: COMMON NORMALS: patient oriented x3, moves all extremities and no focal motor deficits Psych: COMMON NORMALS: mental status grossly normal, Normal thought process present and cooperative THOUGHT PROCESS: Normal thought process present Skin: COMMON NORMALS: no rashes or lesions noted and no wounds GENERAL SKIN EXAM: no rashes or lesions noted Course Vital Signs: Vital signs: Vital Signs Temperature 98.3 F 11/23/24 15:15 Pulse Rate 86 11/23/24 15:15 Respiratory Rate 17 11/23/24 15:15 Blood Pressure 175/75 11/23/24 15:15 Pulse Oximetry 98 11/23/24 15:15 Oxygen Delivery Me thod Room Air 11/23/24 15:15 MDM - Fall Medical Decision Making Patient presents here after a fall she did have a hip contusion CT x-ray shows no signs of fractures blood work is otherwise normal does have a UTI we will prescribe her Keflex she has to follow-up with her PCP return if worsening. Medical Records I reviewed the patient's medical records. Lab Data I reviewed the patient's lab results. 11/23/24 15:37 11/23/24 15:37 Radiology Impressions Chest X-Ray 11/23/24 15:18 IMPRESSION: No acute findings. Hip/Pelvis X-Ray 11/23/24 15:18 IMPRESSION: No acute findings. Head CT 11/23/24 16:05 IMPRESSION: No acute intracranial abnormality. Hip CT 11/23/24 16:05 IMPRESSION: No acute findings. Laboratory Results WBC 7.49 10^3/uL (3.29-11.43) 11/23/24 15:37 RBC 3.09 10^6/uL (3.85-5.65) L 11/23/24 15:37 Hgb 10.40 g/dL (11.27-16.99) L 11/23/24 15:37 Hct 32.4 % (36-47) L 11/23/24 15:37 MCV 104.9 fl (85-98) H 11/23/24 15:37 MCH 33.7 pg (27-33) H 11/23/24 15:37 MCHC 32.1 g/dL (30-55) 11/23/24 15:37 RDW 12.0 % (12.1-15.1) L 11/23/24 15:37 Plt Count 316 10^3/cmm (157-399) 11/23/24 15:37 MPV 9.4 fL (7.4-10.4) 11/23/24 15:37 Neut % (Auto) 78.9 % 11/23/24 15:37 Lymph % (Auto) 12.7 % 11/23/24 15:37 [place] % (Auto) 4.1 % 11/23/24 15:37 Eos % (Auto) 3.5 % 11/23/24 15:37 Baso % (Auto) 0.5 % 11/23/24 15:37 Neut # (Auto) 5.91 10^3/uL (1.8-7.7) 11/23/24 15:37 Lymph # (Auto) 1.0 10^3/uL (0.8-4.8) 11/23/24 15:37 [place] # (Auto) 0.3 10^3/uL (0.2-0.9) 11/23/24 15:37 Eos # (Auto) 0.3 10^3/uL (0.0-0.8) 11/23/24 15:37 Baso # (Auto) 0.0 10^3/uL (0.0-0.1) 11/23/24 15:37 Nucleated RBC % (auto) 0 % 11/23/24 15:37 Nucleated RBCs # 0.0 /100WBC 11/23/24 15:37 Sodium 131 mmol/L (136-145) L 11/23/24 15:37 Potassium 3.9 mmol/L (3.5-5.1) 11/23/24 15:37 Chloride 97 mmol/L (98-107) L 11/23/24 15:37 Carbon Dioxide 19 mmol/L (22-29) L 11/23/24 15:37 Anion Gap 18.9 (5-19) 11/23/24 15:37 BUN 18 mg/dL (8-23) 11/23/24 15:37 Creatinine 2.0 mg/dL (0.5-0.9) H 11/23/24 15:37 GFR Calculation Not Reportable 11/23/24 15:37 Glucose 94 mg/dL (65-115) 11/23/24 15:37 Calculated Osmolality 274 mOsm/kg (285-295) L 11/23/24 15:37 Calcium 8.6 mg/dL (8.5-10.5) 11/23/24 15:37 Total Bilirubin 0.2 mg/dL (0.15-1.2) 11/23/24 15:37 AST 13 U/L (0-32) 11/23/24 15:37 ALT 6 U/L (0-33) 11/23/24 15:37 Alkaline Phosphatase 129 U/L (35-105) H 11/23/24 15:37 Total Protein 7.5 g/dL (6.6-8.7) 11/23/24 15:37 Albumin 4.1 g/dL (3.5-5.2) 11/23/24 15:37 Globulin 3.4 g/dL (1.3-4.6) 11/23/24 15:37 Urine Color Yellow (Yellow) 11/23/24 15:28 Urine Appearance Clear (CLEAR) 11/23/24 15:28 Urine pH 6.5 (5-7) 11/23/24 15:28 Ur Specific [place] 1.004 (1.005-1.030) L 11/23/24 15:28 Urine Protein Negative (Negative) 11/23/24 15:28 Urine Glucose (UA) Negative (Normal) 11/23/24 15:28 Urine Ketones Negative (Negative) 11/23/24 15: Urine Blood Negative (Negative) 11/23/24 15:28 Urine Nitrate Negative (Negative) 11/23/24 15:28 Urine Bilirubin Negative (Negative) 11/23/24 15:28 Urine Urobilinogen 0.2 mg/dL (Negative) 11/23/24 15:28 Ur Leukocyte Esterase 1+ (Negative) A 11/23/24 15:28 Urine RBC 0-2 /hpf (0-2) 11/23/24 15:28 Urine WBC 21-50 /hpf (0-5) H 11/23/24 15:28 Ur Squamous Epith Cells 0-5 /hpf (0-5) 11/23/24 15:28 Amorphous Sediment Not Reportable 11/23/24 15:28 Urine Bacteria 4+ /hpf (NONE) H 11/23/24 15:28 Hyaline Casts 0-4 /lpf H 11/23/24 15:28 All radiology interpretation(s) finalized by discharge EKG Data EKG 1: I personally reviewed and interpreted this EKG as follows: EKG interpretation date: 11/23/24 EKG interpretation time: 15:53 Interpretation: nsr hr [address] elevation qrs 71 qtc 413 Discharge Plan Discharge Patient Disposition: Home Clinical Impression: Acute cystitis, Fall, Contusion of hip, left Condition: Stable Prescriptions: New cephalexin 500 mg capsule 500 mg PO TID 7 Days Qty: 21 0RF No Action simvastatin 20 mg tablet 20 mg PO DAILY primidone 50 mg tablet 50 mg PO BID amitriptyline 25 mg tablet 25 mg PO BEDTIME nitroglycerin 0.4 mg tablet, sublingual 0.4 mg sublingual PRN PRN (Reason: Chest Pain) tizanidine 4 mg tablet 4 mg PO Q6H PRN (Reason: Spasms) potassium chloride 10 mEq tablet extended release 10 meq PO DAILY dexlansoprazole 60 mg capsule,biphase delayed releas 60 mg PO DAILY cilostazol 50 mg tablet 50 mg PO BID omeprazole 40 mg capsule,delayed release(DR/EC) 40 mg PO DAILY furosemide 20 mg tablet See Rx Instructions .ROUTE .COMPLEX Rx Instructions: TAKE 2 TABLETS BY MOUTH IN THE MORNING THEN TAKE 1 TABLET BY MOUTH IN THE EVENING. nystatin 100,000 unit/gram ointment 1 applic TOPICAL BID amlodipine 5 mg tablet 5 mg PO DAILY triamcinolone acetonide 0.1 % ointment 1 applic TOPICAL BID naproxen 500 mg tablet 500 mg PO BID Discharge Orders: Discharge ED (Routine); Ordered 11/23/24 Ordered By: Jayshree Mcarthur Referrals: Laith Patel DO [Primary Care Provider, [facility]] - 4-7 days Discharge Diet: Advance as tolerated Discharge Activity: Resume usual activity Patient Instructions: Urinary Tract Infection in Women (ED), Contusion in Adults (ED) Print Language: Welsh Coding Level of Care Code ED Leaflet Distributor for Justus Greenwood
[2024-11-23 15:40] LABS: Basophils % 0.5 %; Eosinophils # 0.3 10^3/uL (0.0-0.8); Eosinophils % 3.5 %; Hematocrit 32.4 % (36-47); Lymphocytes % 12.7 %; Mean Corpuscular HGB Conc 32.1 g/dL (30-55); Mean Corpuscular Hemoglobin 33.7 pg (27-33); Mean Corpuscular Volume 104.9 fl (85-98); Mean Platelet Volume 9.4 fL (7.4-10.4); Monocytes # 0.3 10^3/uL (0.2-0.9); Monocytes % 4.1 %; Neutrophils # 5.91 10^3/uL (1.8-7.7); Neutrophils % 78.9 %; Nucleated Red Blood Cells % 0 %; Platelet Count 316 10^3/cmm (157-399); Red Blood Count 3.09 10^6/uL (3.85-5.65); White Blood Count 7.49 10^3/uL (3.29-11.43)
[2024-11-23 15:46] LABS: Bilirubin Urine Negative (Negative); Blood Urine Negative (Negative); Glucose Urine UA Negative (Normal); Ketones Urine Negative (Negative); Leukocyte Esterase Urine 1+ (Negative); Nitrate Urine Negative (Negative); Protein Urine Negative (Negative); Specific Gravity, Urine 1.004 (1.005-1.030); Urine Appearance Clear (CLEAR); Urine Color Yellow (Yellow); Urobilinogen Urine 0.2 mg/dL (Negative); pH Urine 6.5 (5-7)
[2024-11-23 15:51] LABS: Add Urine Microscopic? YES; Bacteria Urine 4+ /hpf; Hyaline Casts Urine 0-4 /lpf; RBC Urine 0-2 /hpf (0-2); Squamous Epithelial Cell Urine 0-5 /hpf (0-5); WBC Urine 21-50 /hpf (0-5)
[2024-11-23 15:53] LABS: Add Urine Culture? Yes
[2024-11-23 15:58] LABS: Alanine Aminotransferase 6 U/L (0-33); Albumin Level 4.1 g/dL (3.5-5.2); Alkaline Phosphatase 129 U/L (35-105); Anion Gap 18.9 (5-19); Aspartate Amino Transferase 13 U/L (0-32); Blood Urea Nitrogen 18 mg/dL (8-23); Calcium 8.6 mg/dL (8.5-10.5); Carbon Dioxide 19 mmol/L (22-29); Chloride 97 mmol/L (98-107); Creatinine Clr Calc Pharmacy 17.4392; Globulin 3.4 g/dL (1.3-4.6); Glucose 94 mg/dL (65-115); Osmolality Calculated 274 mOsm/kg (285-295); Potassium 3.9 mmol/L (3.5-5.1); Sodium 131 mmol/L (136-145); Total Bilirubin 0.2 mg/dL (0.15-1.2); Total Protein 7.5 g/dL (6.6-8.7)
--- NOTE | 2024-11-23 16:05 | CTR_ITS ---
PROCEDURE INFORMATION: Exam: CT Left Lower Extremity Without Contrast, Hip Exam date and time: 11/23/2024 4:27 PM Age: 79 years old Clinical indication: Injury or trauma; Fall; Blunt trauma; Hip; Left TECHNIQUE: Imaging protocol: CT of the left lower extremity without contrast was performed. Exam focused on the hip. Radiation optimization: All CT scans at this facility use at least one of these dose optimization techniques: automated exposure control; mA and/or kV adjustment per patient size (includes targeted exams where dose is matched to clinical indication); or iterative reconstruction. COMPARISON: CR (PELVIS, ) 11/23/2024 3:40 PM RADIATION DOSE METRICS: Total DLP (mGy-cm): 205.81 FINDINGS: Bones/joints: No acute fracture or dislocation. Soft tissues: Normal. CT/CT hip LT wo con* [id number] IMPRESSION: No acute findings.
--- NOTE | 2024-11-23 16:05 | CTR_ITS ---
PROCEDURE INFORMATION: Exam: CT Head Without Contrast Exam date and time: 11/23/2024 4:23 PM Age: 79 years old Clinical indication: Injury or trauma; Fall; Blunt trauma (contusions or hematomas); Consciousness not specified TECHNIQUE: Imaging protocol: Computed tomography of the head without contrast. Radiation optimization: All CT scans at this facility use at least one of these dose optimization techniques: automated exposure control; mA and/or kV adjustment per patient size (includes targeted exams where dose is matched to clinical indication); or iterative reconstruction. COMPARISON: CT head wo con* [id number] 07/07/2023 2:15 PM RADIATION DOSE METRICS: Total DLP (mGy-cm): 945.58 FINDINGS: Brain: No hemorrhage. No edema. Advanced diffuse cerebral atrophy and sequela of chronic small vessel ischemic disease. Old lacunar infarcts noted in the basal ganglia. No mass effect. Cerebral ventricles: No ventriculomegaly. Paranasal sinuses: Visualized sinuses are unremarkable. No fluid levels. Mastoid air cells: Visualized mastoid air cells are well aerated. Bones: Unremarkable. No acute fracture. Soft tissues: Unremarkable. CT/CT head wo con* [id number] IMPRESSION: No acute intracranial abnormality.
[2024-11-23] MEDS: cefTRIAXone 1,000 mg SDV 1000 MG IVP (16:50)
[2024-11-23 17:01] VITALS: BP 142/60; PULSE 89; O2SAT 99
--- NOTE | 2024-11-23 17:22 | PC.NURSE ---
pt was unable to ambulate/stand upon discharge. pt fell complete body weight onto nurse. pt did not fall to floor, pt was eased down onto stretcher. attempted to have pt stand for few minutes prior to attempt to ambulate again, pt was unable again. Dr. Hirsch, ED physician aware; verbal orders for 500mL NS bolus.
[2024-11-23] MEDS: sodium chloride 0.9% 500 ML 999 ML IV ×2 (17:28→18:07)
--- NOTE | 2024-11-23 17:54 | PC.NURSE ---
Laying HR: 82 Sitting HR: 83 Standing HR: 86 Laying b/p: 171/85 Sitting b/p: 163/77 Standing b/p: 168/85 pt able to ambulate to BR upon discharge. no further questions or concerns.
--- NOTE | 2024-11-23 17:58 | PC.NURSE ---
after attempting to discharge again, pt ambulated well to bathroom, after using bathroom pt had near fall. family member caught patient, this nurse and x2 other nurses assisted pt to . Dr. Hirsch notified. verbal order for 500mL NS bolus and meclizine; see MAR
[2024-11-23] MEDS: meclizine 25 mg tablet PO (18:07)
[2024-11-23 18:37] VITALS: BP 167/89; PULSE 90; O2SAT 99
[2024-11-23 20:39] VITALS: BP 175/85; PULSE 75; RESP 16; O2SAT 97
== END 2024-11-23 20:42 | disposition home or self-care (01) ==
PROVIDERS: Emergency Provider Emergency Medicine; PCP Family Medicine
DX: N30.00 Acute cystitis without hematuria (principal); S70.02XA Contusion of left hip, initial encounter; W19.XXXA Unspecified fall, initial encounter; F17.210 Nicotine dependence, cigarettes, uncomplicated; J44.9 Chronic obstructive pulmonary disease, unspecified; I25.10 Atherosclerotic heart disease of native coronary artery without angina pectoris; E78.5 Hyperlipidemia, unspecified; I12.9 Hypertensive chronic kidney disease with stage 1 through stage 4 chronic kidney disease, or unspecified chronic kidney disease; N18.9 Chronic kidney disease, unspecified
CPT/HCPCS: 36415; 70450; 71045; 73502; 73700; 80053; 81001; 85025; 87077; 87086; 87186; 93005; 96361; 96374; 99285; J0696; J7040; J8597

== ENCOUNTER 2024-11-24 04:17 | Observation (INO) | payer MEDICARE, MEDICAID, SELFPAY ==
[2024-11-24] VITALS (8 sets, daily range): BP systolic 152–183; BP diastolic 64–86; PULSE 66–97; RESP 15–20; TEMP 36.6; O2SAT 93–98; BMI 21.1
--- NOTE | 2024-11-24 05:08 | CTR_ITS ---
PROCEDURE INFORMATION: Exam: CT Head Without Contrast Exam date and time: 11/24/2024 5:17 AM Age: 79 years old Clinical indication: Injury or trauma; Blunt trauma (contusions or hematomas) and laceration; Without residual foreign body; Forehead; Fall this morning with headstrike going into the bathroom. Laceration to RT frontoparietal. TECHNIQUE: Imaging protocol: Computed tomography of the head without contrast. Radiation optimization: All CT scans at this facility use at least one of these dose optimization techniques: automated exposure control; mA and/or kV adjustment per patient size (includes targeted exams where dose is matched to clinical indication); or iterative reconstruction. COMPARISON: CT head wo con* [id number] 11/23/2024 4:23 PM RADIATION DOSE METRICS: Total DLP (mGy-cm): 891.89 FINDINGS: Brain: There is moderate small vessel disease. There is no evidence of acute parenchymal hemorrhage, extra-axial collection, or acute infarction. There is no mass effect, midline shift, or downward herniation. Cerebral ventricles: No ventriculomegaly. Paranasal sinuses: Visualized sinuses are unremarkable. No fluid levels. Mastoid air cells: Visualized mastoid air cells are well aerated. Bones: Unremarkable. No acute fracture. Soft tissues: Unremarkable. CT/CT head wo con* [id number] IMPRESSION: Moderate small vessel disease. No evidence of acute intracranial process.
--- NOTE | 2024-11-24 05:14 | XRR_ITS ---
PROCEDURE INFORMATION: Exam: XR Chest Exam date and time: 11/24/2024 5:21 AM Age: 79 years old Clinical indication: Injury or trauma; Blunt trauma (contusions or hematomas); Fall this morning going to bathroom. C/O chest discomfort with cough. ; Additional info: Chest pain TECHNIQUE: Imaging protocol: Radiologic exam of the chest. Views: 1 view. COMPARISON: CR (CHEST, ) 11/23/2024 3:40 PM FINDINGS: Lungs: Unremarkable. No consolidation. Pleural spaces: Unremarkable. No pleural effusion. No pneumothorax. Heart/Mediastinum: Unremarkable. No cardiomegaly. Bones/joints: Unremarkable. XR/XR chest 1V portable [id number] IMPRESSION: No acute findings.
--- NOTE | 2024-11-24 05:14 | ECG_ITS ---
[facility] Date: 2024-11-24 Pat Name: Maile López Department: Room: Gender: Female Canvas Cutter: : [id number] Requested By: Erlin Molina Order Number: [id number] Summer MD: Juan Diego Cueto M.D. Measurements Intervals Horner Rate: 75 P: 80 TN: 157 QRS: -11 QRSD: 70 T: 70 QT: 383 QTc: 430 Interpretive Statements SINUS RHYTHM Compared to ECG 11/23/2024 15:53:02 No significant changes Electronically Signed On 11-25-2024 08:59:35 CDT by Juan Diego Cueto M.D. [email or web address]
--- NOTE | 2024-11-24 05:15 | W.ED.FALL ---
HPI - Fall General: Chief Complaint: Fall Stated Complaint: Fell Head Injury Time Seen by Provider: 11/24/24 05:09 History of Present Illness: Patient is a 79-year-old female from home seen for multiple falls. Family states that over the last few days she has started to feel lightheaded when she gets up and walks around. She was seen yesterday for similar problem where she had bruising on the left arm. Tonight she fell and struck her head causing a 3 cm laceration to the right side of the forehead. She denies losing consciousness, vomiting, and has no other acute complaints. Scalp pain is 6 of 10 at rest. She denies recent fever, dysuria, frequency, cough. Related Data Home Medications ?Medication ?Instructions ?Recorded ?Confirmed amitriptyline 25 mg tablet 25 mg PO BEDTIME 09/09/19 11/23/24 nitroglycerin 0.4 mg sublingual 0.4 mg sublingual PRN PRN Chest 09/09/19 11/23/24 tablet Pain primidone 50 mg tablet 50 mg PO BID 07/16/20 11/23/24 simvastatin 20 mg tablet 20 mg PO DAILY 01/04/21 11/23/24 tizanidine 4 mg tablet 4 mg PO Q6H PRN Spasms 07/30/21 11/23/24 dexlansoprazole 60 mg 60 mg PO DAILY 07/07/23 11/23/24 capsule,biphase delayed release potassium chloride 10 mEq 10 meq PO DAILY 07/07/23 11/23/24 tablet,extended release cilostazol 50 mg tablet 50 mg PO BID 06/20/24 11/23/24 furosemide 20 mg tablet See Rx Instructions .Route .COMPLEX 06/20/24 11/23/24 omeprazole 40 mg capsule,delayed 40 mg PO DAILY 06/20/24 11/23/24 release amlodipine 5 mg tablet 5 mg PO DAILY 11/23/24 11/23/24 naproxen 500 mg tablet 500 mg PO BID 11/23/24 11/23/24 nystatin 100,000 unit/gram topical 1 applic topical BID 11/23/24 11/23/24 ointment triamcinolone acetonide 0.1 % 1 applic topical BID 11/23/24 11/23/24 topical ointment Previous Rx's ?Medication ?Instructions ?Recorded cephalexin 500 mg capsule 500 mg PO TID 7 days #21 caps 11/23/24 Allergies Allergy/AdvReac Type Severity Reaction Status Date / Time iodine Allergy Unknown Verified 08/20/24 18:09 Penicillins Allergy ALGY-Anaphy Verified 08/20/24 18:09 laxis PFSH ED PFSH: Medical History Hypotension History of echocardiogram 09/10/2019 EF 69%, I/IV diastolic dysfunction History of Holter monitoring 05/2020 baseline rhythm sinus, 74 bpm, no arrhythmias History of stress test 08/2020 normal myocardial perfusion imaging, no ekg changes History of hypertension in past Hyperlipidemia Digoxin toxicity Bacteremia due to Escherichia coli (~08/2019) Acute upper gastrointestinal bleeding (~06/2021) required transfusion 3 units pRBCs Coronary artery disease Chronic kidney disease Postural orthostatic tachycardia syndrome COPD (chronic obstructive pulmonary disease) Anemia Surgical History History of cardiac catheterization 2020 - moderate mid circumflex and LAD lesions though not significant by FFR Status post laparoscopic cholecystectomy (04/14/21) H/O ventral hernia repair Status post right inguinal hernia repair H/O esophagogastroduodenoscopy (07/30/21) Duodenitis Status post colonoscopy (07/30/21) Diverticulosis History of appendectomy History of 3 sections Family History Father Stroke Denies family history of Diabetes CAD (coronary artery disease) Family history of premature coronary artery disease Social History Smoking and tobacco/nicotine status: current some day tobacco/nicotine user cigarettes Packs smoked per day: 1.5 Years cigarettes smoked: 57 Quit status (tobacco/nicotine): not considering quitting Alcohol intake: never Substance/Drug Use: never Lives independently: Yes Household members: spouse Marital status: Current occupational status: retired Do you think of yourself as: Straight/Heterosexual Current gender identity: Female Physical Exam Const: COMMON NORMALS: no acute distress, patient oriented x3 and alert HENMT: OTHER: 3 cm linear laceration of the right forehead. No active bleeding. No foreign body noted. No underlying bony abnormality noted. Eye: COMMON NORMALS: Equal, round and reactive pupils present, EOMs intact bilaterally and no scleral icterus PUPIL: Yes Equal, round and reactive pupils present Resp: COMMON NORMALS: normal respiratory effort and No retractions Cardio: COMMON NORMALS: regular rate, regular rhythm and No murmurs present (Cardio) RATE: regular rate RHYTHM: regular rhythm GI: COMMON NORMALS: Normal to inspection, nondistended, normoactive bowel sounds present, Soft to palpation and non-tender PALPATION: Yes Soft to palpation Extremity: OTHER: Multiple bruises and abrasions of the upper extremities. No obvious deformity or dislocation. Neuro: COMMON NORMALS: patient oriented x3 SENSORIUM/ORIENTATION: Yes alert Procedures Laceration Laceration 1: Site: face Side (If applicable): right Size (cm): 3 Description: linear Depth: simple, single layer Local Anesthetic: lidocaine 1% Amount of anesthesia used (mL): 3 Skin layer closed with: nylon Size (cm): 4-0 Number of sutures: 6 Course Vital Signs: Vital signs: Vital Signs Temperature 97.8 F 11/24/24 04:24 Pulse Rate 82 11/24/24 05:52 Respiratory Rate 17 11/24/24 05:52 Blood Pressure 174/74 11/24/24 05:52 Pulse Oximetry 96 11/24/24 05:52 Oxygen Delivery Me thod Room Air 11/24/24 05:52 MDM - Fall Medical Decision Making In summary, patient is a 79-year-old female from home accompanied by family seen for multiple falls which caused her to have a laceration of the right forehead tonight. Wound was thoroughly irrigated and closed using 4-0 Ethilon sutures in simple interrupted fashion. The CT head shows nothing acute. Laboratory evaluation and EKG and chest x-ray again show nothing acute. There have been no medication changes that she is aware of. I am uncertain of the etiology of her newfound lightheadedness and weakness causing falls but she will be admitted to the hospital service for further observation and care Lab Data 11/24/24 05:30 11/24/24 05:[address] 11/24/24 05:08 IMPRESSION: Moderate small vessel disease. No evidence of acute intracranial process. Chest X-Ray 11/24/24 05:14 IMPRESSION: No acute findings. Laboratory Results WBC 6.56 10^3/uL (3.29-11.43) 11/24/24 05:30 RBC 2.97 10^6/uL (3.85-5.65) L 11/24/24 05:30 Hgb 9.90 g/dL (11.27-16.99) L 11/24/24 05:30 Hct 30.6 % (36-47) L 11/24/24 05:30 MCV 103.0 fl (85-98) H 11/24/24 05:30 MCH 33.3 pg (27-33) H 11/24/24 05:30 MCHC 32.4 g/dL (30-55) 11/24/24 05:30 RDW 12.1 % (12.1-15.1) 11/24/24 05:30 Plt Count 320 10^3/cmm (157-399) 11/24/24 05:30 MPV 9.1 fL (7.4-10.4) 11/24/24 05:30 Neut % (Auto) 73.9 % 11/24/24 05:30 Lymph % (Auto) 12.3 % 11/24/24 05:30 [place] % (Auto) 7.3 % 11/24/24 05:30 Eos % (Auto) 5.6 % 11/24/24 05:30 Baso % (Auto) 0.6 % 11/24/24 05:30 Neut # (Auto) 4.84 10^3/uL (1.8-7.7) 11/24/24 05:30 Lymph # (Auto) 0.8 10^3/uL (0.8-4.8) 11/24/24 05:30 [place] # (Auto) 0.5 10^3/uL (0.2-0.9) 11/24/24 05:30 Eos # (Auto) 0.4 10^3/uL (0.0-0.8) 11/24/24 05:30 Baso # (Auto) 0.0 10^3/uL (0.0-0.1) 11/24/24 05:30 Nucleated RBC % (auto) 0 % 11/24/24 05:30 Nucleated RBCs # 0.0 /100WBC 11/24/24 05:30 Sodium 140 mmol/L (136-145) 11/24/24 05:30 Potassium 3.7 mmol/L (3.5-5.1) 11/24/24 05:30 Chloride 106 mmol/L (98-107) 11/24/24 05:30 Carbon Dioxide 22 mmol/L (22-29) 11/24/24 05:30 Anion Gap 15.7 (5-19) 11/24/24 05:30 BUN 17 mg/dL (8-23) 11/24/24 05:30 Creatinine 1.7 mg/dL (0.5-0.9) H 11/24/24 05:30 GFR Calculation Not Reportable 11/24/24 05:30 Glucose 89 mg/dL (65-115) 11/24/24 05:30 Calculated Osmolality 291 mOsm/kg (285-295) 11/24/24 05:30 Calcium 8.5 mg/dL (8.5-10.5) 11/24/24 05:30 Total Bilirubin 0.2 mg/dL (0.15-1.2) 11/24/24 05:30 AST 11 U/L (0-32) 11/24/24 05:30 ALT < 5 U/L (0-33) 11/24/24 05:30 Alkaline Phosphatase 110 U/L (35-105) H 11/24/24 05:30 Troponin T Baseline 19 ng/L (0-10) H 11/24/24 05:30 Total Protein 6.6 g/dL (6.6-8.7) 11/24/24 05:30 Albumin 3.9 g/dL (3.5-5.2) 11/24/24 05:30 Globulin 2.7 g/dL (1.3-4.6) 11/24/24 05:30 All radiology interpretation(s) finalized by discharge EKG Data EKG 1: Interpretation: Time?0542?normal sinus rhythm, rate of 75, no ST segment elevation or depression, no T wave inversions, intervals within normal limits. QTc = 412 Discharge Plan Discharge Patient Disposition: Placed in Observation Clinical Impression: Falls frequently, Laceration of scalp, Light-headedness Coding Level of Care Code ED Operations Tech for Justus Greenwood
[2024-11-24 05:35] LABS: Basophils % 0.6 %; Eosinophils # 0.4 10^3/uL (0.0-0.8); Eosinophils % 5.6 %; Hematocrit 30.6 % (36-47); Lymphocytes # 0.8 10^3/uL (0.8-4.8); Lymphocytes % 12.3 %; Mean Corpuscular HGB Conc 32.4 g/dL (30-55); Mean Corpuscular Hemoglobin 33.3 pg (27-33); Mean Platelet Volume 9.1 fL (7.4-10.4); Monocytes # 0.5 10^3/uL (0.2-0.9); Monocytes % 7.3 %; Neutrophils # 4.84 10^3/uL (1.8-7.7); Neutrophils % 73.9 %; Nucleated Red Blood Cells % 0 %; Platelet Count 320 10^3/cmm (157-399); Red Blood Count 2.97 10^6/uL (3.85-5.65); Red Cell Distribution Width 12.1 % (12.1-15.1); White Blood Count 6.56 10^3/uL (3.29-11.43)
[2024-11-24] MEDS: aspirin 81 mg Chew Tablet 324 MG PO (05:49)
[2024-11-24 05:53] LABS: Troponin(5th) Baseline 19 ng/L (0-10)
[2024-11-24 06:32] LABS: Alanine Aminotransferase < 5 U/L (0-33); Albumin Level 3.9 g/dL (3.5-5.2); Alkaline Phosphatase 110 U/L (35-105); Anion Gap 15.7 (5-19); Aspartate Amino Transferase 11 U/L (0-32); Blood Urea Nitrogen 17 mg/dL (8-23); Calcium 8.5 mg/dL (8.5-10.5); Carbon Dioxide 22 mmol/L (22-29); Chloride 106 mmol/L (98-107); Creatinine Clr Calc Pharmacy 20.5167; Globulin 2.7 g/dL (1.3-4.6); Glucose 89 mg/dL (65-115); Osmolality Calculated 291 mOsm/kg (285-295); Potassium 3.7 mmol/L (3.5-5.1); Sodium 140 mmol/L (136-145); Total Bilirubin 0.2 mg/dL (0.15-1.2); Total Protein 6.6 g/dL (6.6-8.7)
--- NOTE | 2024-11-24 09:49 | PC.NURSE ---
PT HEAD LAC DRESSED AND WRAPPED PER VERBAL ORDERS FROM DR. GANT. PT CHANGED INTO A GOWN AND PT PAD CHANGED.
[2024-11-24 10:14] LABS: Bilirubin Urine Negative (Negative); Blood Urine Negative (Negative); Glucose Urine UA Negative (Normal); Ketones Urine Negative (Negative); Leukocyte Esterase Urine Trace (Negative); Nitrate Urine Negative (Negative); Protein Urine 1+ (Negative); Specific Gravity, Urine 1.011 (1.005-1.030); Urine Appearance Clear (CLEAR); Urine Color Yellow (Yellow); Urobilinogen Urine 0.2 mg/dL (Negative)
[2024-11-24 10:19] LABS: Add Urine Microscopic? YES; Bacteria Urine None Seen /hpf; Hyaline Casts Urine 0-4 /lpf; RBC Urine 0-2 /hpf (0-2); Squamous Epithelial Cell Urine 0-5 /hpf (0-5)
--- NOTE | 2024-11-24 10:19 | PM.HP ---
Providers/Chief Complaint Admitting Physician: Erlin Loredo DO Primary Care Provider: Laith Patel Chief Complaint: Fell Head Injury History of Present Illness Maile López is a 79 year old female who presented to ER after sustaining multiple falls at home. She was seen in the ER yesterday after having a fall. She was treated for UTI, but wasn't able to package pick up the medication before pharmacy closed. She then had another fall, resulting in a large laceration of her head. This was sutured in the ER. She states that she had some mild weakness denies any syncopal event. Family says that he has been getting weaker over the last few days. She does endorse some L hip pain after the fall. XR and CT were obtained. In the ER, CT did not show any SDH or ICH. UA from prior day was concerning for UTI. She had mild anemia with hgb at 9.9. Her Cr was 1.7, which is around her baseline. Troponins were unremarkable. Hip CT did not show any acute fractures. CXR unremarkable. She was admitted for overnight observation. Review of Systems General: Reports: 10 or more systems reviewed and unremarkable except in HPI and below Medications/Allergies Home Medications ?Medication ?Instructions ?Recorded ?Confirmed ?Last Taken ?Type amitriptyline 25 mg tablet 25 mg PO BEDTIME 09/09/19 11/24/24 11/23/24 History nitroglycerin 0.4 mg sublingual 0.4 mg sublingual PRN PRN Chest 09/09/19 11/24/24 Unknown History tablet Pain primidone 50 mg tablet 50 mg PO BID 07/16/20 11/24/24 11/23/24 History simvastatin 20 mg tablet 20 mg PO DAILY 01/04/21 11/24/24 11/23/24 History tizanidine 4 mg tablet 4 mg PO Q6H PRN Spasms 07/30/21 11/24/24 Unknown History dexlansoprazole 60 mg 60 mg PO DAILY 07/07/23 11/24/24 11/23/24 History capsule,biphase delayed release potassium chloride 10 mEq 10 meq PO DAILY 07/07/23 11/24/24 11/23/24 History tablet,extended release cilostazol 50 mg tablet 50 mg PO BID 06/20/24 11/24/24 11/23/24 History furosemide 20 mg tablet See Rx Instructions .Route .COMPLEX 06/20/24 11/24/24 11/23/24 History omeprazole 40 mg capsule,delayed 40 mg PO DAILY 06/20/24 11/24/24 11/23/24 History release amlodipine 5 mg tablet 5 mg PO DAILY 11/23/24 11/24/24 11/23/24 History cephalexin 500 mg capsule 500 mg PO TID 7 days #21 caps 11/23/24 11/24/24 Unknown Rx naproxen 500 mg tablet 500 mg PO BID 11/23/24 11/24/24 11/23/24 History nystatin 100,000 unit/gram topical 1 applic topical BID 11/23/24 11/24/24 Unknown History ointment triamcinolone acetonide 0.1 % 1 applic topical BID 11/23/24 11/24/24 Unknown History topical ointment Allergies Allergy/AdvReac Type Severity Reaction Status Date / Time iodine Allergy Unknown Verified 08/20/24 18:09 Penicillins Allergy ALGY-Anaphy Verified 08/20/24 18:09 laxis PFSH Acute PFSH: Medical History Hypotension History of echocardiogram 09/10/2019 EF 69%, I/IV diastolic dysfunction History of Holter monitoring 05/2020 baseline rhythm sinus, 74 bpm, no arrhythmias History of stress test 08/2020 normal myocardial perfusion imaging, no ekg changes History of hypertension in past Hyperlipidemia Digoxin toxicity Bacteremia due to Escherichia coli (~08/2019) Acute upper gastrointestinal bleeding (~06/2021) required transfusion 3 units pRBCs Coronary artery disease Chronic kidney disease Postural orthostatic tachycardia syndrome COPD (chronic obstructive pulmonary disease) Anemia Surgical History History of cardiac catheterization 2020 - moderate mid circumflex and LAD lesions though not significant by FFR Status post laparoscopic cholecystectomy (04/14/21) H/O ventral hernia repair Status post right inguinal hernia repair H/O esophagogastroduodenoscopy (07/30/21) Duodenitis Status post colonoscopy (07/30/21) Diverticulosis History of appendectomy History of 3 sections Family History Father Stroke Denies family history of Diabetes CAD (coronary artery disease) Family history of premature coronary artery disease Social History Smoking and tobacco/nicotine status: current some day tobacco/nicotine user cigarettes Packs smoked per day: 1.5 Years cigarettes smoked: 57 Quit status (tobacco/nicotine): not considering quitting Alcohol intake: never Substance/Drug Use: never Lives independently: Yes Household members: spouse Marital status: Current occupational status: retired Do you think of yourself as: Straight/Heterosexual Current gender identity: Female Vitals/I&O/Wt Last Vital Signs Temp 97.8 F 11/24/24 04:24 Pulse 69 11/24/24 10:17 Resp 17 11/24/24 05:52 BP 152/69 11/24/24 10:17 Pulse Ox 96 11/24/24 10:17 O2 Del Method Room Air 11/24/24 05:52 11/23/24 11/24/24 11/24/24 22:59 06:59 14:59 Intake Total 0 / 0 Balance 0 / 0 Weight last 48 hrs Weight 108 lb Physical Exam Narrative: General: Cooperative patient in no apparent distress. Well developed. HEENT: Right sided laceration over the parietal region. Sutures in place. Bulky dressing in place. External ears normal. Nasal passages patent without drainage. MMM. Heart: RRR. Resp: LCTA. No respiratory distress, no use of accessory muscles. Abd: Soft, non-tender. Non-distended. Extremities: TTP over the Left hip. Skin: Multiple bruises over the arms. Neuro: No focal motor or sensory loss. Data 11/24/24 05:30 11/24/24 05:30 A&P Assessment and plan (1) Fall: (2) Laceration of scalp: (3) UTI (urinary tract infection): (4) Anemia: (5) Chronic kidney disease: (6) Contusion of hip, left: (7) Falls frequently: Plan 79 y/o F seen admitted for multiple falls, laceration of the scalp, UTI treatment. Will admit for observation for now. Start Rocephin for treatment of UTI. Urine culture pending. Currently showing GNR. Prvious showed Kebsiella and E-Coli susceptible to Rocephin. Macrocytic anemia. Will check B12 and folate levels. Recheck am labs. Will have PT evaluate and treat. Recommended she use a Walker anytime she transfers or ambulates. Will start IV fluids. Code Status: Full IVF: NS at 50 DVT PPx: None, low risk. GI PPx: Famotidine ABx: Rocephin Diet: Regular Discharge plan: Home when appropriate. PDMP PDMP Reviewed: Not Reviewed Attestations Medical Necessity Statement*: Admitted for observation for multiple falls, lab work-up for macrocytic anemia and loss of balance, Treatment of UTI, Physical therapy evaluation, monitoring after head laceration. Coding Level of Care Code Acute Code for Chg Fwd Moderate MDM includes number and complexity of problems actively addressed during encounter, amount and/or complexity of data reviewed/ordered and described risk of complication, morbidity or mortality of management as documented Diagnoses Fall, initial encounter W19.XXXA Encounter type: initial encounter Laceration of scalp, initial encounter S01.01XA Encounter type: initial encounter Acute cystitis without hematuria N30.00 Urinary tract infection type: acute cystitis Hematuria presence: without hematuria Anemia due to vitamin B12 deficiency, unspecified B12 deficiency type D51.9 Anemia type: B12 deficiency Vitamin B12 deficiency anemia type: unspecified B12 deficiency Chronic kidney disease, unspecified CKD stage N18.9 Chronic kidney disease stage: unspecified stage Contusion of left hip, initial encounter S70.02XA Encounter type: initial encounter Falls frequently R29.6
[2024-11-24 12:21] LABS: Troponin 5 6HR 13.81 ng/L (0-10)
[2024-11-24 12:23] LABS: Troponin 5 6HR Delta -5.19 ng/L (0-12)
[2024-11-24 13:13] LABS: Vitamin B12 230 pg/mL (232-1245)
[2024-11-24] MEDS: sodium chloride 0.9% 1,000 ML 75 ML IV (13:20)
[2024-11-24 13:28] LABS: Folate Level 8.2 ng/mL (4.8-37.3)
[2024-11-24] MEDS: cefTRIAXone 1,000 mg SDV 1000 MG IVP (14:17)
[2024-11-24] MEDS: cyanocobalamin 1,000 mcg/mL SDV 1000 MCG IM (16:00)
[2024-11-24] MEDS: famotidine 20 mg Tablet PO (17:22)
[2024-11-25] VITALS (8 sets, daily range): BP systolic 146–186; BP diastolic 68–93; PULSE 78–96; RESP 16–19; TEMP 36.8–36.9; O2SAT 93–96
[2024-11-25] MEDS: sodium chloride 0.9% 1,000 ML 75 ML IV (02:27)
[2024-11-25 03:20] LABS: Basophils # 0.1 10^3/uL (0.0-0.1); Basophils % 0.8 %; Eosinophils # 0.4 10^3/uL (0.0-0.8); Eosinophils % 6.7 %; Hematocrit 26.7 % (36-47); Mean Corpuscular HGB Conc 32.2 g/dL (30-55); Mean Corpuscular Hemoglobin 34.3 pg (27-33); Mean Corpuscular Volume 106.4 fl (85-98); Mean Platelet Volume 9.1 fL (7.4-10.4); Monocytes # 0.5 10^3/uL (0.2-0.9); Monocytes % 8.3 %; Neutrophils # 4.08 10^3/uL (1.8-7.7); Nucleated Red Blood Cells % 0 %; Platelet Count 290 10^3/cmm (157-399); Red Blood Count 2.51 10^6/uL (3.85-5.65); Red Cell Distribution Width 12.1 % (12.1-15.1)
[2024-11-25 03:56] LABS: Anion Gap 14.7 (5-19); Blood Urea Nitrogen 12 mg/dL (8-23); Calcium 7.8 mg/dL (8.5-10.5); Carbon Dioxide 19 mmol/L (22-29); Chloride 110 mmol/L (98-107); Creatinine Clr Calc Pharmacy 24.9131; Glucose 79 mg/dL (65-115); Osmolality Calculated 289 mOsm/kg (285-295); Phosphorus 2.8 mg/dL (2.5-4.5); Potassium 3.7 mmol/L (3.5-5.1); Sodium 140 mmol/L (136-145); Thyroid Stimulating Hormone 1.35 uIU/mL (0.27-4.20)
--- NOTE | 2024-11-25 09:12 | PC.CHAP ---
Pastoral Care Encounter/Spiritual Assessment Type of Contact [] Declined photogrammetric stereo compiler visit [] Patient/Family/Request visit [] Outpatient visit [] Follow-up visit [] Physician referral [] Code/Alert [x] Routine visit [] Staff referral [] Actively dying [] Patient sleeping [] Family support [] [x] Out of room [] Palliative care [] [] Receiving care in room [] Pre-surgical visit [] Trauma [] Long length of stay [] ICU visit [] Other: Relational/Emotional Strength [] Patient feels connected with others/family/visitors/staff [] Distress [] Loneliness/isolation [] Abandonment Spirituality of Patient [] Person of Lizeth [] Attends Roman Catholic of their Lizeth [] Believes in Prayer [] Reads Bible or Anabaptist materials [] There are Spiritual issues to be addressed Entry Operator Interventions [] Prayer [] Active listening [] Non-anxious presence [] Spiritual/emotional support [] Crisis/trauma care [] Spiritual counseling [] Bereavement support [] Provided bereavement packet [] Provided Bible/devotional materials [] Provided toy/stuffed animal, coloring book to patient or family member [] Provided Communion [] Anointing/[place] [] Salvation [] Completed spiritual assessment [] Other: Impact on Illness or Injury [] Angry [] Fearful [] Anxious [] Often cries [] Exhaustion [] Unable to work [] Unable to attend restoration [] Unable to walk/stand [] Unable to read [] Unable to drive [] Unable to eat/drink [] Unable to sleep [] Unable to be with family [] Patient intubated [] Other: Summary Time spent with patient
[2024-11-25] MEDS: famotidine 20 mg Tablet PO (09:44)
--- NOTE | 2024-11-25 17:09 | P.DS_ITS ---
Discharge Providers Date of Admission: 11/24/24 07:07 Date of Discharge: November 25, 2024 Attending Provider at Admission: Erlin Loredo DO Attending Provider at Discharge: Paulina See MD Primary Care Provider: Laith Patel Diagnoses at Discharge Discharge Diagnosis (1) Fall: Status: Acute Qualifiers: Encounter type: initial encounter Qualified Code(s): W19.XXXA - Unspecified fall, initial encounter (2) Laceration of scalp: Status: Acute Qualifiers: Encounter type: initial encounter Qualified Code(s): S01.01XA - Laceration without foreign body of scalp, initial encounter (3) UTI (urinary tract infection): Status: Acute Qualifiers: Hematuria presence: without hematuria Urinary tract infection type: acute cystitis Qualified Code(s): N30.00 - Acute cystitis without hematuria (4) Anemia: Status: Chronic Qualifiers: Anemia type: B12 deficiency Vitamin B12 deficiency anemia type: unspecified B12 deficiency Qualified Code(s): D51.9 - Vitamin B12 deficiency anemia, unspecified (5) Chronic kidney disease: Status: Chronic Qualifiers: Chronic kidney disease stage: unspecified stage Qualified Code(s): N18.9 - Chronic kidney disease, unspecified (6) Contusion of hip, left: Status: Acute Qualifiers: Encounter type: initial encounter Qualified Code(s): S70.02XA - Contusion of left hip, initial encounter (7) Falls frequently: Status: Acute Reason for Visit Reason for Visit: Fell Head Injury Hospital Course Hospital Course Patient is a 79-year-old lady who is 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 She typically walks in her house without any assistive device though has been recommended to use a walker. She states that she usually uses her hands and legs to find her way around the house. She fell at home yesterday when she was walking to the bathroom. She is unsure what happened but thinks this was a mechanical fall. She suffered a scalp lacretaion which was sutured in the ER. Moderate small vessel disease was noted.no evidence of intracranial process. Hip CT was negative for any fractures or dislocations. There was no evidence of orthostatic hypotension. She lives with her children. Physical therapy evaluation was undertaken. She did well with standby assistance only. Home exercise regimen was recommended. She was also diagnosed with a urinary tract infection. She had been prescribed cephalexin recently as an outpatient but family reports that she is allergic to cephalosporins. Therefore all home antibiotics have been changed to levofloxacin at discharge. She was not encephalopathic. UTI does not explain her fall. Chiefly the patient's cause of her falls appears to be related to her blindness and refusal to use assistive devices. We discussed with her extensively that with advancing age, she is highly likley to be at risk of recurrent falls especially if she develops neuropathy as age advances. She should not rely on tactile stimuli only to get around the house. Encouraged to use walker and cane at home. We are attempting to arrange Aide at home via [facility]. Patient;s family also provided information for [facility]. Home PT also requested specifically to assess for handicap assistance/blind training for ADLs. Physical Exam Narrative: General: No acute distress, AO x3 HEENT: PERRLA, pupils bilaterally equal and reactive, pallors not present Chest: Normal vesicular breath sounds, no added sounds, equal good air entry bilaterally CVS: S1-S2 regular, no murmurs, no tachycardia, no gallops, no rubs Abdomen: Soft, nontender, no organomegaly, bowel sounds present Neuro: No focal deficits, no facial deformity, AO x3, power 5/5 in all limbs Discharge Data Studies Completed and Pending Completed Studies During Hospitalization Category Date Time Status CT head wo con* [id number] Stat Cat Scan 11/24/24 05:08 Completed XR chest 1V portable [id number] Stat Exams 11/24/24 05:14 Completed Radiology Impressions Head CT 11/24/24 05:08 IMPRESSION: Moderate small vessel disease. No evidence of acute intracranial process. Chest X-Ray 11/24/24 05:14 IMPRESSION: No acute findings. Laboratory Results WBC 6.00 10^3/uL (3.29-11.43) 11/25/24 03:08 RBC 2.51 10^6/uL (3.85-5.65) L 11/25/24 03:08 Hgb 8.60 g/dL (11.27-16.99) L 11/25/24 03:08 Hct 26.7 % (36-47) L 11/25/24 03:08 MCV 106.4 fl (85-98) H 11/25/24 03:08 MCH 34.3 pg (27-33) H 11/25/24 03:08 MCHC 32.2 g/dL (30-55) 11/25/24 03:08 RDW 12.1 % (12.1-15.1) 11/25/24 03:08 Plt Count 290 10^3/cmm (157-399) 11/25/24 03:08 MPV 9.1 fL (7.4-10.4) 11/25/24 03:08 Neut % (Auto) 68.0 % 11/25/24 03:08 Lymph % (Auto) 16.0 % 11/25/24 03:08 [place] % (Auto) 8.3 % 11/25/24 03:08 Eos % (Auto) 6.7 % 11/25/24 03:08 Baso % (Auto) 0.8 % 11/25/24 03:08 Neut # (Auto) 4.08 10^3/uL (1.8-7.7) 11/25/24 03:08 Lymph # (Auto) 1.0 10^3/uL (0.8-4.8) 11/25/24 03:08 [place] # (Auto) 0.5 10^3/uL (0.2-0.9) 11/25/24 03:08 Eos # (Auto) 0.4 10^3/uL (0.0-0.8) 11/25/24 03:08 Baso # (Auto) 0.1 10^3/uL (0.0-0.1) 11/25/24 03:08 Nucleated RBC % (auto) 0 % 11/25/24 03:08 Nucleated RBCs # 0.0 /100WBC 11/25/24 03:08 Sodium 140 mmol/L (136-145) 11/25/24 03:08 Potassium 3.7 mmol/L (3.5-5.1) 11/25/24 03:08 Chloride 110 mmol/L (98-107) H 11/25/24 03:08 Carbon Dioxide 19 mmol/L (22-29) L 11/25/24 03:08 Anion Gap 14.7 (5-19) 11/25/24 03:08 BUN 12 mg/dL (8-23) 11/25/24 03:08 Creatinine 1.4 mg/dL (0.5-0.9) H 11/25/24 03:08 GFR Calculation Not Reportable 11/25/24 03:08 Glucose 79 mg/dL (65-115) 11/25/24 03:08 Calculated Osmolality 289 mOsm/kg (285-295) 11/25/24 03:08 Calcium 7.8 mg/dL (8.5-10.5) L 11/25/24 03:08 Phosphorus 2.8 mg/dL (2.5-4.5) 11/25/24 03:08 Total Bilirubin 0.2 mg/dL (0.15-1.2) 11/24/24 05:30 AST 11 U/L (0-32) 11/24/24 05:30 ALT < 5 U/L (0-33) 11/24/24 05:30 Alkaline Phosphatase 110 U/L (35-105) H 11/24/24 05:30 Troponin T Baseline 19 ng/L (0-10) H 11/24/24 05:30 Troponin T 120 Minute 17.30 ng/L (0-10) H 11/24/24 07:29 Delta Troponin T -1.70 ABS# (0-10) L 11/24/24 07:29 Troponin T Hi Sens 6Hr 13.81 ng/L (0-10) H 11/24/24 11:55 Troponin T Hi Sens 6Hr Delta -5.19 ng/L (0-12) L 11/24/24 11:55 Total Protein 6.6 g/dL (6.6-8.7) 11/24/24 05:30 Albumin 3.9 g/dL (3.5-5.2) 11/24/24 05:30 Globulin 2.7 g/dL (1.3-4.6) 11/24/24 05:30 Vitamin B12 230 pg/mL (232-1245) L 11/24/24 05:30 Folate 8.2 ng/mL (4.8-37.3) 11/24/24 05:30 TSH 1.35 uIU/mL (0.27-4.20) 11/25/24 03:08 Urine Color Yellow (Yellow) 11/24/24 08:47 Urine Appearance Clear (CLEAR) 11/24/24 08:47 Urine pH 7.0 (5-7) 11/24/24 08:47 Ur Specific [place] 1.011 (1.005-1.030) 11/24/24 08:47 Urine Protein 1+ (Negative) A 11/24/24 08:47 Urine Glucose (UA) Negative (Normal) 11/24/24 08:47 Urine Ketones Negative (Negative) 11/24/24 08:47 Urine Blood Negative (Negative) 11/24/24 08:47 Urine Nitrate Negative (Negative) 11/24/24 08:47 Urine Bilirubin Negative (Negative) 11/24/24 08:47 Urine Urobilinogen 0.2 mg/dL (Negative) 11/24/24 08:47 Ur Leukocyte Esterase Trace (Negative) A 11/24/24 08:47 Urine RBC 0-2 /hpf (0-2) 11/24/24 08:47 Urine WBC 11-20 /hpf (0-5) H 11/24/24 08:47 Ur Squamous Epith Cells 0-5 /hpf (0-5) 11/24/24 08:47 Amorphous Sediment Not Reportable 11/24/24 08:47 Urine Bacteria None seen /hpf (NONE) 11/24/24 08:47 Hyaline Casts 0-4 /lpf H 11/24/24 08:47 Vitals Last Vital Signs Temp 98.4 F 11/25/24 14:10 Pulse 78 11/25/24 14:10 Resp 16 11/25/24 14:10 BP 146/82 11/25/24 14:10 Pulse Ox 96 11/25/24 14:10 O2 Del Method Room Air 11/25/24 08:23 Discharge Plan Discharge Patient Disposition: Home Health Service Condition: Stable Prescriptions: New levofloxacin 500 mg tablet 500 mg PO DAILY 5 Days Qty: 5 0RF Discontinued cephalexin 500 mg capsule 500 mg PO TID 7 Days Qty: 21 0RF No Action simvastatin 20 mg tablet 20 mg PO DAILY primidone 50 mg tablet 50 mg PO BID amitriptyline 25 mg tablet 25 mg PO BEDTIME nitroglycerin 0.4 mg tablet, sublingual 0.4 mg sublingual PRN PRN (Reason: Chest Pain) tizanidine 4 mg tablet 4 mg PO Q6H PRN (Reason: Spasms) potassium chloride 10 mEq tablet extended release 10 meq PO DAILY dexlansoprazole 60 mg capsule,biphase delayed releas 60 mg PO DAILY cilostazol 50 mg tablet 50 mg PO BID omeprazole 40 mg capsule,delayed release(DR/EC) 40 mg PO DAILY furosemide 20 mg tablet See Rx Instructions .ROUTE .COMPLEX Rx Instructions: TAKE 2 TABLETS BY MOUTH IN THE MORNING THEN TAKE 1 TABLET BY MOUTH IN THE EVENING. nystatin 100,000 unit/gram ointment 1 applic TOPICAL BID amlodipine 5 mg tablet 5 mg PO DAILY triamcinolone acetonide 0.1 % ointment 1 applic TOPICAL BID naproxen 500 mg tablet 500 mg PO BID Discharge Orders: Discharge Order (Routine); Ordered 11/25/24 Ordered By: Paulina See Referrals: [facility] Setup [Other] Referral Note: Call this number to get S setup. They will ask questions & based off you answers you are given points. You have to have a certain number of points to qualify for in home services. [facility] ([facility]) [Outside] Laith Patel DO [Primary Care Provider, Family Practice] Referral Note: Please follow up with your doctor for a follow up apt Patient Instructions: Levofloxacin (By mouth) (Levaquin, Levaquin Leva-arpan), Urinary Tract Infection in Women (DC), Fall Prevention for Older Adults (DC), Opioid Safety Discharge Attestations Time Spent in Discharge Care*: greater than 30 min Quality Metrics Clinical Quality Measures [ No reported AMI, CVA or VTE this stay] Coding Level of Care Code Acute Code for Chg Fwd Diagnoses Fall, initial encounter W19.XXXA Encounter type: initial encounter Laceration of scalp, initial encounter S01.01XA Encounter type: initial encounter Acute cystitis without hematuria N30.00 Hematuria presence: without hematuria Urinary tract infection type: acute cystitis Anemia due to vitamin B12 deficiency, unspecified B12 deficiency type D51.9 Anemia type: B12 deficiency Vitamin B12 deficiency anemia type: unspecified B12 deficiency Chronic kidney disease, unspecified CKD stage N18.9 Chronic kidney disease stage: unspecified stage Contusion of left hip, initial encounter S70.02XA Encounter type: initial encounter Falls frequently R29.6
== END 2024-11-25 14:42 | disposition home health service (06) ==
LOC: ER 07:07 → ER IP 08:12 → MEDSURG 11-25 06:24
PROVIDERS: Admitting Provider Family Medicine; Emergency Provider Student in an Organized Health Care Education/Training Program; PCP Family Medicine; Visit Provider Student in an Organized Health Care Education/Training Program
DX: R29.6 Repeated falls (principal); E78.5 Hyperlipidemia, unspecified; I25.10 Atherosclerotic heart disease of native coronary artery without angina pectoris; N18.9 Chronic kidney disease, unspecified; J44.9 Chronic obstructive pulmonary disease, unspecified; I12.9 Hypertensive chronic kidney disease with stage 1 through stage 4 chronic kidney disease, or unspecified chronic kidney disease; F17.210 Nicotine dependence, cigarettes, uncomplicated; D63.1 Anemia in chronic kidney disease; S01.01XA Laceration without foreign body of scalp, initial encounter; D51.9 Vitamin B12 deficiency anemia, unspecified; N30.00 Acute cystitis without hematuria; S70.02XA Contusion of left hip, initial encounter; H54.8 Legal blindness, as defined in USA; Z90.49 Acquired absence of other specified parts of digestive tract; Z79.899 Other long term (current) drug therapy; Z88.0 Allergy status to penicillin; Z91.041 Radiographic dye allergy status; W19.XXXA Unspecified fall, initial encounter
CPT/HCPCS: 12002; 36415; 70450; 71045; 80048; 80053; 81001; 82607; 82746; 84100; 84443; 84484; 85025; 93005; 96365; 96372; 96375; 97161; 99285; G0378; J0696; J3420; J7030; J9999

== ENCOUNTER 2024-11-29 21:15 | Emergency (ER) | payer MEDICARE, MEDICAID, SELFPAY ==
[2024-11-29 21:23] VITALS: BP 140/67; PULSE 92; RESP 20; TEMP 36.6; O2SAT 98
--- NOTE | 2024-11-29 21:35 | XRR_ITS ---
PROCEDURE INFORMATION: Exam: XR Chest Exam date and time: 11/29/2024 9:37 PM Age: 79 years old Clinical indication: Other: General weakness; Additional info: Weakness and confusion TECHNIQUE: Imaging protocol: Radiologic exam of the chest. Views: 1 view. COMPARISON: CR (CHEST, ) 11/24/2024 5:21 AM FINDINGS: Lungs: Unremarkable. No consolidation. Pleural spaces: Unremarkable. No pleural effusion. No pneumothorax. Heart/Mediastinum: Unremarkable. No cardiomegaly. Bones/joints: Unremarkable. XR/XR chest 1V portable [id number] IMPRESSION: No visualized acute cardiopulmonary process.
--- NOTE | 2024-11-29 21:35 | W.ED.WEAKNES ---
HPI - Weakness General: Chief complaint: Weakness Stated complaint: AMS, Lethargic Time Seen by Provider: 11/29/24 21:27 History of Present Illness: Patient is an elderly female who presents with altered mental status. Per caregiver report, patient was noted to be more lethargic, weak, and 'not normal' compared to her baseline. Caregiver reports patient had a fall last week with impact to her head. Patient is confused about her current location and reason for visit, though she acknowledges she was 'acting weird.' When asked about pain, patient indicates discomfort in an unspecified area, pointing to a location but unable to verbalize specifics. Patient is disoriented to time, stating her birthdate (07/24/1930) when asked about the current year. Unable to identify current date, month, or year. Review of Systems General: Reports: ROS unobtainable due to mental status [facility] ED PFSH: Medical History Hypotension History of echocardiogram 09/10/2019 EF 69%, I/IV diastolic dysfunction History of Holter monitoring 05/2020 baseline rhythm sinus, 74 bpm, no arrhythmias History of stress test 08/2020 normal myocardial perfusion imaging, no ekg changes History of hypertension in past Hyperlipidemia Digoxin toxicity Bacteremia due to Escherichia coli (~08/2019) Acute upper gastrointestinal bleeding (~06/2021) required transfusion 3 units pRBCs Coronary artery disease Chronic kidney disease Postural orthostatic tachycardia syndrome COPD (chronic obstructive pulmonary disease) Anemia Surgical History History of cardiac catheterization 2020 - moderate mid circumflex and LAD lesions though not significant by FFR Status post laparoscopic cholecystectomy (04/14/21) H/O ventral hernia repair Status post right inguinal hernia repair H/O esophagogastroduodenoscopy (07/30/21) Duodenitis Status post colonoscopy (07/30/21) Diverticulosis History of appendectomy History of 3 sections Family History Father Stroke Denies family history of Diabetes CAD (coronary artery disease) Family history of premature coronary artery disease Social History Smoking and tobacco/nicotine status: current some day tobacco/nicotine user cigarettes Packs smoked per day: 1.5 Years cigarettes smoked: 57 Quit status (tobacco/nicotine): not considering quitting Alcohol intake: never Substance/Drug Use: never Lives independently: Yes Household members: spouse Marital status: Current occupational status: retired Do you think of yourself as: Straight/Heterosexual Current gender identity: Female Physical Exam Const: COMMON NORMALS: no acute distress, alert and well nourished HENMT: COMMON NORMALS: normocephalic HEAD & SCALP: normocephalic Eye: COMMON NORMALS: Equal, round and reactive pupils present, EOMs intact bilaterally and conjunctivae normal CONJUNCTIVA: Yes conjunctivae normal PUPIL: Yes Equal, round and reactive pupils present Chest: COMMONS NORMALS: normal inspection of the chest and normal palpation of entire chest wall Resp: COMMON NORMALS: normal respiratory effort, No retractions, No use of accessory muscles, clear to auscultation bilaterally and percussion normal AUSCULTATION: clear to auscultation bilaterally PERCUSSION: percussion normal GI: COMMON NORMALS: Normal to inspection, nondistended, normoactive bowel sounds present, Soft to palpation, non-tender, No hepatosplenomegaly present, no masses and no bruits PALPATION: Yes Soft to palpation and Yes No hepatosplenomegaly present : COMMON NORMALS: Yes no CVA tenderness BLADDER/KIDNEY EXAM: Yes no CVA tenderness Back/Pelvis: COMMON NORMALS: no CVA tenderness Extremity: COMMON NORMALS: normal to inspection, full ROM, capillary refill normal, no joint enlargement, no clubbing, cyanosis or edema, no calf tenderness and no pedal edema Neuro: SENSORIUM/ORIENTATION: Yes alert Skin: COMMON NORMALS: no rashes or lesions noted, turgor normal and no jaundice GENERAL SKIN EXAM: no rashes or lesions noted and turgor normal Course Vital Signs: Vital signs: Vital Signs Temperature 98 F 11/29/24 21:23 Pulse Rate 90 11/30/24 00:34 Respiratory Rate 20 H 11/29/24 21:23 Blood Pressure 159/79 11/30/24 00:34 Pulse Oximetry 98 11/30/24 00:34 Oxygen Delivery Me thod Room Air 11/30/24 00:34 MDM - Weakness Medical Decision Making 1. Altered Mental Status/Confusion: - Likely multifactorial etiology including possible post-fall sequelae, delirium, or underlying infection - Will obtain laboratory studies including CBC, CMP, and urinalysis to rule out infectious causes - Consider head imaging given recent fall history and current altered mental status 2. Weakness/Lethargy: - Will assess for metabolic derangements via laboratory studies - Monitor fluid status and consider IV hydration if indicated - Further evaluation of baseline functional status needed Differential Diagnosis Likely anemia, sepsis and dehydration Medical Records Patient was found to have mild acute kidney injury. This is likely related to ongoing and concomitant use of Lasix plus levofloxacin and naproxen. I made some adjustment to her medication list and encouraged her to drink fluid she is largely without complaint otherwise she will be discharged home in care of family with instructions to hold several medications discontinue the Levaquin and get repeat labs and recheck next week with primary care. Lab Data 11/29/24 22:23 11/29/24 22:23 Radiology Impressions Chest X-Ray 11/29/24 21:35 IMPRESSION: No visualized acute cardiopulmonary process. Laboratory Results WBC 13.32 10^3/uL (3.29-11.43) H 11/29/24 22:23 RBC 2.80 10^6/uL (3.85-5.65) L 11/29/24 22:23 Hgb 9.40 g/dL (11.27-16.99) L 11/29/24 22: Hct 29.6 % (36-47) L 11/29/24 22:23 MCV 105.7 fl (85-98) H 11/29/24 22:23 MCH 33.6 pg (27-33) H 11/29/24 22: MCHC 31.8 g/dL (30-55) 11/29/24 22:23 RDW 12.4 % (12.1-15.1) 11/29/24 22: Plt Count 348 10^3/cmm (157-399) 11/29/24 22: MPV 9.3 fL (7.4-10.4) 11/29/24 22:23 Neut % (Auto) 86.1 % 11/29/24 22: Lymph % (Auto) 4.8 % 11/29/24 22: [place] % (Auto) 4.8 % 11/29/24 22: Eos % (Auto) 3.4 % 11/29/24 22:23 Baso % (Auto) 0.5 % 11/29/24 22:23 Neut # (Auto) 11.47 10^3/uL (1.8-7.7) H 11/29/24 22:23 Lymph # (Auto) 0.6 10^3/uL (0.8-4.8) L 11/29/24 22:23 [place] # (Auto) 0.6 10^3/uL (0.2-0.9) 11/29/24 22:23 Eos # (Auto) 0.5 10^3/uL (0.0-0.8) 11/29/24 22:23 Baso # (Auto) 0.1 10^3/uL (0.0-0.1) 11/29/24 22:23 Nucleated RBC % (auto) 0 % 11/29/24 22: Nucleated RBCs # 0.0 /100WBC 11/29/24 22:23 Sodium 136 mmol/L (136-145) 11/29/24 22:23 Potassium 3.9 mmol/L (3.5-5.1) 11/29/24 22:23 Chloride 104 mmol/L (98-107) 11/29/24 22:23 Carbon Dioxide 15 mmol/L (22-29) L 11/29/24 22:23 Anion Gap 20.9 (5-19) H 11/29/24 22:23 BUN 18 mg/dL (8-23) 11/29/24 22:23 Creatinine 2.1 mg/dL (0.5-0.9) H 11/29/24 22:23 GFR Calculation Not Reportable 11/29/24 22:23 Glucose 98 mg/dL (65-115) 11/29/24 22:23 Calculated Osmolality 284 mOsm/kg (285-295) L 11/29/24 22:23 Calcium 8.4 mg/dL (8.5-10.5) L 11/29/24 22:23 Total Bilirubin 0.2 mg/dL (0.15-1.2) 11/29/24 22:23 AST 11 U/L (0-32) 11/29/24 22:23 ALT < 5 U/L (0-33) 11/29/24 22:23 Alkaline Phosphatase 129 U/L (35-105) H 11/29/24 22:23 Total Protein 7.0 g/dL (6.6-8.7) 11/29/24 22:23 Albumin 4.0 g/dL (3.5-5.2) 11/29/24 22:23 Globulin 3.0 g/dL (1.3-4.6) 11/29/24 22:23 Urine Color Yellow (Yellow) 11/29/24 23:39 Urine Appearance Clear (CLEAR) 11/29/24 23:39 Urine pH 5.5 (5-7) 11/29/24 23:39 Ur Specific [place] 1.009 (1.005-1.030) 11/29/24 23:39 Urine Protein Negative (Negative) 11/29/24 23:39 Urine Glucose (UA) Negative (Normal) 11/29/24 23:39 Urine Ketones Negative (Negative) 11/29/24 23:39 Urine Blood Negative (Negative) 11/29/24 23:39 Urine Nitrate Negative (Negative) 11/29/24 23:39 Urine Bilirubin Negative (Negative) 11/29/24 23:39 Urine Urobilinogen 0.2 mg/dL (Negative) 11/29/24 23:39 Ur Leukocyte Esterase Negative (Negative) 11/29/24 23:39 Urine RBC 0-2 /hpf (0-2) 11/29/24 23:39 Urine WBC 0-5 /hpf (0-5) 11/29/24 23:39 Ur Squamous Epith Cells 0-5 /hpf (0-5) 11/29/24 23:39 Amorphous Sediment Not Reportable 11/29/24 23:39 Urine Bacteria 2+ /hpf (NONE) H 11/29/24 23:39 Hyaline Casts 4.52 /lpf 11/29/24 23:39 XR interpretation done by ED provider, pending radiology final review Discharge Plan Discharge Patient Disposition: Home Clinical Impression: Acute kidney injury UTI (urinary tract infection) Qualifiers: Urinary tract infection type: acute cystitis Hematuria presence: without hematuria Qualified Code(s): N30.00 - Acute cystitis without hematuria Condition: Stable Prescriptions: Continued simvastatin 20 mg tablet 20 mg PO DAILY primidone 50 mg tablet 50 mg PO BID amitriptyline 25 mg tablet 25 mg PO BEDTIME nitroglycerin 0.4 mg tablet, sublingual 0.4 mg sublingual PRN PRN (Reason: Chest Pain) tizanidine 4 mg tablet 4 mg PO Q6H PRN (Reason: Spasms) dexlansoprazole 60 mg capsule,biphase delayed releas 60 mg PO DAILY cilostazol 50 mg tablet 50 mg PO BID omeprazole 40 mg capsule,delayed release(DR/EC) 40 mg PO DAILY nystatin 100,000 unit/gram ointment 1 applic TOPICAL BID amlodipine 5 mg tablet 5 mg PO DAILY triamcinolone acetonide 0.1 % ointment 1 applic TOPICAL BID Held potassium chloride 10 mEq tablet extended release 10 meq PO DAILY Hold Instructions: Resume on 12/07/24. furosemide 20 mg tablet See Rx Instructions .ROUTE .COMPLEX Hold Instructions: Resume on 12/07/24. Rx Instructions: TAKE 2 TABLETS BY MOUTH IN THE MORNING THEN TAKE 1 TABLET BY MOUTH IN THE EVENING. naproxen 500 mg tablet 500 mg PO BID Hold Instructions: Resume on 12/07/24. Discontinued levofloxacin 500 mg tablet 500 mg PO DAILY 5 Days Qty: 5 0RF Discharge Orders: Discharge ED (Routine); Ordered 11/30/24 Ordered By: Urbano Rizo Referrals: Laith Patel DO [Primary Care Provider, Family Practice] Discharge Diet: Usual diet Discharge Activity: Limit activity as instructed Patient Instructions: Opioid Safety, Pain Management Activity Restrictions/Additional Instructions: 1. Rest, push fluids and make medication changes as noted on medication reconcillation 2. Follow up with PCP for recheck and repeat labs next week. 3. Return for new or worsening symptoms. Print Language: Divehi Coding Level of Care Code ED Machine Ironer for Chg Fwd Related Data Home Medications ?Medication ?Instructions ?Recorded ?Confirmed amitriptyline 25 mg tablet 25 mg PO BEDTIME 09/09/19 11/24/24 nitroglycerin 0.4 mg sublingual 0.4 mg sublingual PRN PRN Chest 09/09/19 11/24/24 tablet Pain primidone 50 mg tablet 50 mg PO BID 07/16/20 11/24/24 simvastatin 20 mg tablet 20 mg PO DAILY 01/04/21 11/24/24 tizanidine 4 mg tablet 4 mg PO Q6H PRN Spasms 07/30/21 11/24/24 dexlansoprazole 60 mg 60 mg PO DAILY 07/07/23 11/24/24 capsule,biphase delayed release potassium chloride 10 mEq 10 meq PO DAILY 07/07/23 11/24/24 tablet,extended release Held on 11/30/24. Instructions: Resume on 12/07/24. cilostazol 50 mg tablet 50 mg PO BID 06/20/24 11/24/24 furosemide 20 mg tablet See Rx Instructions .Route .COMPLEX 06/20/24 11/24/24 Held on 11/30/24. Instructions: Resume on 12/07/24. omeprazole 40 mg capsule,delayed 40 mg PO DAILY 06/20/24 11/24/24 release amlodipine 5 mg tablet 5 mg PO DAILY 11/23/24 11/24/24 naproxen 500 mg tablet 500 mg PO BID 11/23/24 11/24/24 Held on 11/30/24. Instructions: Resume on 12/07/24. nystatin 100,000 unit/gram topical 1 applic topical BID 11/23/24 11/24/24 ointment triamcinolone acetonide 0.1 % 1 applic topical BID 11/23/24 11/24/24 topical ointment Allergies Allergy/AdvReac Type Severity Reaction Status Date / Time iodine Allergy Unknown Verified 11/29/24 22:38 Penicillins Allergy ALGY-Anaphy Verified 11/29/24 22:38 laxis
[2024-11-29 21:49] VITALS: BP 141/63; PULSE 88; O2SAT 97
[2024-11-29] MEDS: sodium chloride 0.9% 500 ML IV (22:03)
[2024-11-29 22:30] LABS: Basophils # 0.1 10^3/uL (0.0-0.1); Basophils % 0.5 %; Eosinophils # 0.5 10^3/uL (0.0-0.8); Eosinophils % 3.4 %; Hematocrit 29.6 % (36-47); Lymphocytes # 0.6 10^3/uL (0.8-4.8); Lymphocytes % 4.8 %; Mean Corpuscular HGB Conc 31.8 g/dL (30-55); Mean Corpuscular Hemoglobin 33.6 pg (27-33); Mean Corpuscular Volume 105.7 fl (85-98); Mean Platelet Volume 9.3 fL (7.4-10.4); Monocytes # 0.6 10^3/uL (0.2-0.9); Monocytes % 4.8 %; Neutrophils # 11.47 10^3/uL (1.8-7.7); Neutrophils % 86.1 %; Nucleated Red Blood Cells % 0 %; Platelet Count 348 10^3/cmm (157-399); Red Cell Distribution Width 12.4 % (12.1-15.1); White Blood Count 13.32 10^3/uL (3.29-11.43)
[2024-11-29 22:57] LABS: Alanine Aminotransferase < 5 U/L (0-33); Alkaline Phosphatase 129 U/L (35-105); Anion Gap 20.9 (5-19); Aspartate Amino Transferase 11 U/L (0-32); Blood Urea Nitrogen 18 mg/dL (8-23); Calcium 8.4 mg/dL (8.5-10.5); Carbon Dioxide 15 mmol/L (22-29); Chloride 104 mmol/L (98-107); Glucose 98 mg/dL (65-115); Osmolality Calculated 284 mOsm/kg (285-295); Potassium 3.9 mmol/L (3.5-5.1); Sodium 136 mmol/L (136-145); Total Bilirubin 0.2 mg/dL (0.15-1.2)
[2024-11-29 23:11] VITALS: BP 151/71; PULSE 88; O2SAT 98
[2024-11-29 23:52] LABS: Bilirubin Urine Negative (Negative); Blood Urine Negative (Negative); Glucose Urine UA Negative (Normal); Ketones Urine Negative (Negative); Leukocyte Esterase Urine Negative (Negative); Nitrate Urine Negative (Negative); Protein Urine Negative (Negative); Specific Gravity, Urine 1.009 (1.005-1.030); Urine Appearance Clear (CLEAR); Urine Color Yellow (Yellow); Urobilinogen Urine 0.2 mg/dL (Negative); pH Urine 5.5 (5-7)
[2024-11-29 23:54] LABS: Add Urine Microscopic? YES; Bacteria Urine 2+ /hpf; Hyaline Casts Urine 4.52 /lpf; RBC Urine 0-2 /hpf (0-2); Squamous Epithelial Cell Urine 0-5 /hpf (0-5); WBC Urine 0-5 /hpf (0-5)
[2024-11-30] MEDS: sodium chloride 0.9% 500 ML IV (00:33)
[2024-11-30 00:34] VITALS: BP 159/79; PULSE 90; O2SAT 98
[2024-11-30 01:01] VITALS: BP 158/67; PULSE 88; O2SAT 98
== END 2024-11-30 01:08 | disposition home or self-care (01) ==
PROVIDERS: Emergency Provider Family Medicine; PCP Family Medicine
DX: N30.00 Acute cystitis without hematuria (principal); F17.210 Nicotine dependence, cigarettes, uncomplicated; J44.9 Chronic obstructive pulmonary disease, unspecified; I25.10 Atherosclerotic heart disease of native coronary artery without angina pectoris; E78.5 Hyperlipidemia, unspecified; N18.9 Chronic kidney disease, unspecified
CPT/HCPCS: 36415; 71045; 80053; 81001; 85025; 99284; J7040

== ENCOUNTER → 2025-01-02 11:56 | Outpatient (BNVA) | payer MEDICARE, MEDICAID, SELFPAY | PROVIDERS: PCP Family Medicine; Visit Provider Internal Medicine Cardiovascular Disease | DX: R55 Syncope and collapse (principal); R00.2 Palpitations; I25.10 Atherosclerotic heart disease of native coronary artery without angina pectoris; E78.2 Mixed hyperlipidemia; I65.23 Occlusion and stenosis of bilateral carotid arteries; N18.9 Chronic kidney disease, unspecified; R07.9 Chest pain, unspecified | CPT/HCPCS: 93005; 99204 ==

== ENCOUNTER 2025-01-06 16:36 | Outpatient (CLI) | payer MEDICARE, MEDICAID, SELFPAY ==
--- NOTE | 2025-01-06 16:45 | USCV_ITS ---
Maile López Age: 79 Gender: F : 1945 Exam Date: 01/06/2025 16:46 Ordering Phys: Adria Mcdonald MD ([email or web address]) Technologist: JOSE Exam Location: [facility] [place] Indication: stenosis Risk Factors: Previous Vascular Surgery: Right Brachial BP: / Left Brachial BP: / Right Left Velocity (cm/s) Spectral Plaque Velocity (cm/s) Spectral Plaque Syst/Diast Broadening Syst/Diast Broadening 67.40/ 14.30 Prox CCA 79.40 / 16.50 76.00/ 15.10 Mid CCA 82.50 / 19.20 71.00/ 20.60 Distal CCA 80.60 / 20.90 57.70/ 14.30 Prox ICA 99.70 / 21.80 66.90/ 15.60 Mid ICA 93.70 / 25.00 59.00/ 15.60 Distal ICA 66.50 / 17.60 80.00 ECA 112.20 0.90 ICA/CCA 1.20 Antegrade Vertebral Antegrade 40.40/ 10.30 cm/s 25.40/ 2.50 cm/s Tri Subclavian Tri 129.4 99.00 0 FINDINGS Comparison:. 02/21/24 Diffuse, moderate bilateral scattered calcified plaque and intimal thickening throughout the common carotid arteries and extending through the bifurcation. Velocites are not as elevated on today's exam as seen on the prior study. Antegrade vertebral arteries. CONCLUSIONS Bilateral ICA stenosis less than 50%. Moderate diffuse carotid atherosclerosis. Dr. Leigh Hayes DO (Electronically Signed) Final Date: 07 January 2025 08:14 S
== END 2025-01-06 16:37 | disposition home or self-care (01) ==
LOC: RAD 16:38
PROVIDERS: PCP Family Medicine; Visit Provider Internal Medicine Cardiovascular Disease
DX: I65.23 Occlusion and stenosis of bilateral carotid arteries (principal)
CPT/HCPCS: 93880

== ENCOUNTER 2025-02-08 14:24 | Inpatient (IN) | payer OTHER, MEDICAID, SELFPAY ==
[2025-02-08] VITALS (7 sets, daily range): BP systolic 121–175; BP diastolic 71–80; PULSE 64–94; RESP 16–17; TEMP 36.8–36.9; O2SAT 93–100
--- OUTSIDE RECORDS SUMMARY | 2025-02-08 14:39 | XMS_ITS | Encounter Summary ---
Author Organization [employer] [facility] Address [address] [place] [address] Phone Care Team Providers Care Machine Stitcher Name Role Phone Laith Patel DO Primary Care Provider [phone] Encounter Details Date Type Department Care Team (Late st Contact Info) Description 07/31/2018 Orders Only [facility] [address] [place] [address] Chronic kidney disease, stage 2 (mild) Social History Tobacco Use Types Packs/Day Years Used Date Smoking Tobacco: Never Assessed Comments Unknown Sex and Gender Information Value Date Recorded Sex Assigned at Not on file Legal Sex Female 10:43 AM EST Gender Identity Not on file Sexual Orientation Not on file documented as of this encounter Plan of Treatment Not on file documented as of this encounter Visit Diagnoses Diagnosis Chronic kidney disease, stage 2 (mild) documented in this encounter Care Teams Machine Stitcher Relationship Specialty Start Date End Date Laith Patel DO [address] [place] [address] PCP - General Family Medicine 10/25/18 documented as of this encounter
--- OUTSIDE RECORDS SUMMARY | 2025-02-08 14:39 | XMS_ITS | Encounter Summary ---
Author Organization [facility] Address [address] [place] [address] Care Team Providers Care Board Runner Name Role Phone Non-Staff, Physician Primary Care Provider Unava ilable Encounter Details Date Type Department Care Team (Latest Contact Info) Description 02/24/2017 Ancillary Orders [facility] [address] [facility] [address] [place] [address] Laith Patel, [address] [place] [address] Inconclusive mammogram Social History Tobacco Use Types Packs/Day Years Used Date Smoking Tobacco: Every Day Cigarettes Alcohol Use Standard Drinks/Week Comments No 0 (1 standard drink = 0.6 oz pur e alcohol) Comments No Sex and Gender Information Value Date Recorded Sex Assigned at Not on file 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
--- OUTSIDE RECORDS SUMMARY | 2025-02-08 14:39 | XMS_ITS | Encounter Summary ---
Author Organization [facility] Address [address] [place] [address] Care Team Providers Care Grill Chef Name Role Phone Non-Staff, Physician Primary Care Provider Unava ilable Encounter Details Date Type Department Care Team (Latest Contact Info) Description 03/18/2003 Outpatient Historical [facility] [address] 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
--- OUTSIDE RECORDS SUMMARY | 2025-02-08 14:39 | XMS_ITS | Clinical Summary ---
Author Organization [employer] Address [address] Alicia: Epic Prelude ADT [place] [address] Care Team Providers Care Telecom Engineer Name Role Phone Amanda Laith Wolfe Primary Care Provider [phone] Allergies Active Allergy Reactions Criticality Noted Date Comments Iodine Anaphylaxis High 12/28/2013 Penicillins Anaphylaxis High 12/28/2013 Medications dexlansoprazole (DEXILANT) 60 mg Delayed Release capsule Take 60 mg by mouth daily. Active primidone (MYSOLINE) 50 mg tablet Take 50 mg by mouth every 8 hours. Active nitroglycerin (NITROSTAT) 0.4 mg Tablet, Sublingual Place 0.4 mg under tongue every 5 minutes as needed for Chest Pain. Active amitriptyline (ELAVIL) 25 mg tablet Take 25 mg by mouth daily at bedtime. Active furosemide (LASIX) 20 mg tablet Take 20 mg by mouth daily. Active omeprazole (PriLOSEC) 40 mg Capsule, Delayed Release(E.C.) Take 40 mg by mouth daily. Active tiZANidine (ZANAFLEX) 4 mg Tablet Take 4 mg by mouth every 6 hours as needed for Spasm. Active cilostazoL (PLETAL) 50 mg Tablet Take 50 mg by mouth. Active potassium chloride (KLOR-CON M10) 10 mEq Extended Release tablet Take 10 mEq by mouth 2 times daily. Active naproxen (NAPROSYN) 500 mg tablet Take 500 mg by mouth 2 times daily with meals. Active simvastatin (ZOCOR) 20 mg tablet Take 20 mg by mouth daily with supper. Active Encounters Date Type Department Care Team Description 01/14/2025 External Device Data [facility] ABSTRACTION Provider, Abstract 01/07/2025 External Device Data [facility] AB[facility]CTION Provider, Abstract 01/01/2025 External Device Data [facility] Provider, Abstract 12/31/2024 External Device Data [facility] Provider, Abstract 12/24/2024 External Device Data [facility] Provider, Abstract 11/26/2024 External Device Data [facility] ABSTRACTION Provider, Abstract 11/26/2024 External Device Data [facility] ABSTRACTION Provider, Abstract from Last 3 Months Family History Medical History Relation Name Comments Breast Cancer Neg Hx Ovarian Cancer Neg Hx Relation Name Status Comments Brother 1 Brother 2 Alive Brother 3 Alive Brother 4 Alive Daughter 1 TITA Alive Daughter 2 Alive Maternal Grandmother Mother Sister 1 Alive Sister 2 Sister 3 Sister 4 Alive Sister 5 Alive Son Alive Social History Tobacco Use Types Packs/Day Years Used Date Smoking Tobacco: Every Day Cigarettes Tobacco Cessation:Ready to Q uit: Not Asked; Counseling Given: Not Answered Alcohol Use Standard Drinks/Week Comments No 0 (1 standard drink = 0.6 oz pur e alcohol) Feeling Safe Answer Date Recorded Are you in a relationship wi th someone who hurts you emotionally and/or physically? No 04/27/2024 Comments No Sex and Gender Information Value Date Recorded Sex Assigned at Not on file Legal Sex Female 3:26 PM SYSTEMS ARCHITECT Gender Identity Not on file Sexual Orientation Not on file Last Filed Vital Signs Vital Sign Reading Time Taken Comments Blood Pressure 177/56 04/27/2024 8:55 PM SYSTEMS ARCHITECT Pulse 78 04/27/2024 7:45 PM SYSTEMS ARCHITECT Temperature 36.6 C (97.8 F) 04/27/2024 8:55 PM SYSTEMS ARCHITECT Respiratory Rate 18 04/27/2024 8:55 PM SYSTEMS ARCHITECT Oxygen Saturation 97% 04/27/2024 7:45 PM SYSTEMS ARCHITECT Inhaled Oxygen Concentration - - Weight 49.9 kg (110 lb) 04/27/2024 5:45 PM SYSTEMS ARCHITECT Height 152.4 cm (5') 04/27/2024 5:45 PM SYSTEMS ARCHITECT Body Mass Index 21.48 04/27/2024 5:45 PM SYSTEMS ARCHITECT Plan of Treatment Health Maintenance Due Date Last Done Comments DTAP/TDAP/TD VACCINES (1 - Tdap) 09/15/1966 PNEUMOCOCCAL VACCINE 50+ YEARS (1 of 2 - PCV) 09/15/18 67 ZOSTER VACCINE (1 of 2) 09/15/1997 OSTEOPOROSIS SCREENING 09/15/2012 RSV VACCINE (60+ or ) (1 - 1-dose 75+ series) 09/15/2022 INFLUENZA VACCINE (#1) 2025 Insurance MEDICAID [facility] DUAL COMPLETE HMO [facility] [id number] Care Teams Telecom Engineer Relationship Specialty Start Date End Date Laith Patel DO [address] [place] [address] PCP - General Family Practice 04/27/24
--- OUTSIDE RECORDS SUMMARY | 2025-02-08 14:39 | XMS_ITS | Encounter Summary ---
Author Organization [facility] Address [address] [place] [address] Care Team Providers Care Post Exchange Manager Name Role Phone Non-Staff, Physician Primary Care Provider Unava ilable Encounter Details Date Type Department Care Team (Latest Contact Info) Description 04/03/1998 Outpatient Historical [facility] Rashi Person MD NO ADDRESS ON FILE Carpal tunnel syndrome (Primary Dx); Disorders of bursae and tendons in shoulder region, unspecified; Pain in joint, shoulder region Social History Tobacco Use Types Packs/Day Years Used Date Smoking Tobacco: Never Assessed Comments Unknown Sex and Gender Information Value Date Recorded Sex Assigned at Not on file 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
--- OUTSIDE RECORDS SUMMARY | 2025-02-08 14:39 | XMS_ITS | Clinical Summary ---
Author Organization [facility] Address [address] [place] [address] Care Team Providers Care Certified Medical Technician Assistant Name Role Phone Amanda Laith Primary Care Provider [phone] Allergies Active Allergy Reactions Criticality Noted Date Comments Iodine Anaphylaxis High 12/28/2013 Penicillins Anaphylaxis High 12/28/2013 Medications * This document contains information received from the source organization and may not represent a complete record from that organization. clopidogrel (PLAVIX) 75 MG tablet Take 75 mg by mouth Active DIGOX 125 MCG tablet TK 1 T PO QD. 1 07/23/2018 Active FEROSUL 325 (65 Fe) MG tablet TK 1 T PO BID. 2 07/21/2018 Active fluticasone (FLONASE) 50 MCG/ACT nasal spray SPRAY ONCE IEN D 1 07/25/2018 Active furosemide (LASIX) 20 MG tablet TK 1 T PO QD. 2 07/02/2018 Active isosorbide dinitrate (ISORDIL) 5 MG tablet Take 2.5 mg by mouth 2 (two) times a day 2 07/21/2018 Active naproxen (NAPROSYN) 500 MG tablet TK 1 T PO BID 1 06/25/2018 Active nitroglycerin (NITROSTAT) 0.4 MG SL tablet TK DIRECTED. 0 07/12/2018 Active potassium chloride (KLOR-CON M20) 20 MEQ CR tablet TK 1 T PO TID 1 06/21/2018 Active primidone (MYSOLINE) 50 MG tablet 50 mg 2 (two) times a day 2 07/21/2018 Active raNITIdine (ZANTAC) 150 MG tablet TK 1 T PO BID. 2 07/21/2018 Active tiZANidine (ZANAFLEX) 4 MG tablet TK 1 T PO Q 8 H PRN 2 06/16/2018 Active traZODone (DESYREL) 50 MG tablet Take 50 mg by mouth every night Active Active Problems No known active problems Family History Medical History Relation Comments Stroke Father Relation Status Comments Father Mother Social History Tobacco Use Types Packs/Day Years Used Date Smoking Tobacco: Every Day Cigarettes Smokeless Tobacco: Never Alcohol Use Standard Drinks/Week Comments Never 0 (1 standard drink = 0.6 oz pur e alcohol) AUDIT-C Answer Date Recorded Frequency of Alcohol Consumption Never 10/25/2018 Average Number of Drinks Not on file 019 Frequency of Binge Drinking Not on file 02/2019 Comments Unknown Sex and Gender Information Value Date Recorded Sex Assigned at Not on file Legal Sex Female 10:43 AM EST Gender Identity Not on file Sexual Orientation Not on file Last Filed Vital Signs Vital Sign Reading Time Taken Comments Blood Pressure 136/68 10/25/2018 1:50 PM CDT Pulse 80 10/25/2018 1:50 PM CDT Temperature - - Respiratory Rate - - Oxygen Saturation - - Inhaled Oxygen Concentration - - Weight 51.8 kg (114 lb 4.8 oz) 10/25/2018 1:50 P M CDT Height 152.4 cm (5') 10/25/2018 1:50 PM CDT Body Mass Index 22.32 10/25/2018 1:50 PM CDT Plan of Treatment Health Maintenance Due Date Last Done Comments Pneumococcal Vaccine: 50+ Ye ars (1 of 2 - PCV) 09/15/1966 Influenza Vaccine (#1) 2025 Hepatitis B Vaccine Aged Out No longe r eligible based on patient's age to complete this topic Insurance Medicaid [place] ([facility]) Dual Complete Choice [place] Care Teams Certified Medical Technician Assistant Relationship Specialty Start Date End Date Laith Patel DO [address] [place] [id number] PCP - General Family Medicine 10/25/18
--- OUTSIDE RECORDS SUMMARY | 2025-02-08 14:39 | XMS_ITS | Encounter Summary ---
Author Organization [facility] Address [address] [place] [address] Care Team Providers Care Pot Room Supervisor Name Role Phone Non-Staff, Physician Primary Care Provider Unava ilable Encounter Details Date Type Department Care Team (Latest Contact Info) Description 04/02/2007 Outpatient Historical [facility] [address] 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
--- OUTSIDE RECORDS SUMMARY | 2025-02-08 14:39 | XMS_ITS | Encounter Summary ---
Author Organization [facility] Address [address] [facility] [address] [place] [address] Phone Care Team Providers Care Aircraft Communicator Name Role Phone Laith Patel DO Primary Care Provider [phone] Encounter Details Date Type Department Care Team (Late st Contact Info) Description 04/27/2019 Orders Only [facility] [address] [place] [address] Elkin Lorenzo MD [address] [facility] [address] [place] [address] Chronic kidney disease, stage 3 (moderate) ([facility]) Social History Tobacco Use Types Packs/Day Years [...] Visit Diagnoses Diagnosis Chronic kidney disease, stage 3 (moderate) documented in this encounter Care Teams Aircraft Communicator Relationship Specialty Start Date End Date Laith Patel DO [address] [place] [phone] PCP - General Family Medicine 10/25/18 documented as of this encounter
--- OUTSIDE RECORDS SUMMARY | 2025-02-08 14:39 | XMS_ITS | Encounter Summary ---
Author Organization [facility] Address [address] [place] [address] Care Team Providers Care Chemical Preparer Name Role Phone Non-Staff, Physician Primary Care Provider Unava ilable Encounter Details Date Type Department Care Team (Latest Contact Info) Description 02/24/2017 Ancillary Orders [facility] [address] [facility] [address] [place] [address] Laith Patel, [address] [place] [address] Inconclusive mammogram Social History Tobacco Use Types Packs/Day Years Used Date Smoking Tobacco: Every Day Cigarettes Alcohol Use Standard Drinks/Week Comments No 0 (1 standard drink = 0.6 oz pur e alcohol) Comments No Sex and Gender Information Value Date Recorded Sex Assigned at Not on file 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
--- OUTSIDE RECORDS SUMMARY | 2025-02-08 14:39 | XMS_ITS | Encounter Summary ---
Author Organization [facility] Address [address] [place] [address] Care Team Providers Care Translator/Interpreter Name Role Phone Non-Staff, Physician Primary Care Provider Unava ilable Reason for Referral * Outpatient Services (Routine) - Closed Specialty Diagnoses / Procedures Referred By Contac t Referred To Contact Radiology Diagnoses Screening mammogram, encounter for Procedures MAMMO SCREEN BILAT W OR WO CAD Laith Patel DO [address] [place] [address] Phone: tel: fax: [facility] [place] [address] [facility] [address] [place] [address] Phone: tel: fax: Referral ID Status Reason Start Date Expiration Date V isits Requested Visits Authorized [id number] Closed [facility] CTS to Schedule (SGF) 02/06/2017 03/09/2018 1 1 Encounter Details Date Type Department Care Team (Latest Contact Info) Description 02/06/2017 Ancillary Orders [facility] Centralized Scheduling [address] [facility] [address] [place] [address] Laith Patel DO [address] [address] [place] [address] Screening mammogram, encounter for Social History Tobacco Use Types Packs/Day Years Used Date Smoking Tobacco: Every Day Cigarettes Alcohol Use Standard Drinks/Week Comments No 0 (1 standard drink = 0.6 oz pur e alcohol) Comments No Sex and Gender Information Value Date Recorded Sex Assigned at Not on file 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 BREAST COMPOSITION: Heterogeneously dense which may obscure small masses. FINDINGS: This digital mammogram was also analyzed by the Computer Aided Detection System (CAD), [employer], Version 8.3. There is a focal asymmetry within the lateral right breast at posterior and mid depth. A questionable area of architectural distortion is seen within the posterior left breast just lateral to the posterior nipple line. ASSESSMENT: Incomplete evaluation. Additional imaging is needed. BI-RADS 0. RECOMMENDATIONS: 1. Diagnostic right breast mammogram. Additional imaging of the right breast to include spot tomosynthesis in the CC and MLO projections. A right breast ultrasound may be obtained if clinically warranted. 2. Diagnostic left breast mammogram. Additional imaging of the left breast to include tomosynthesis in the CC projection. A left breast ultrasound may be obtained if clinically warranted. [id number] Procedure Note Antonio Meek MD - 02/24/2017 MAMMO SCREEN BILAT W OR WO CAD INDICATION FOR EXAMINATION: Screening mammogram, encounter for COMPARISONS: None available. BREAST COMPOSITION: Heterogeneously dense which may obscure small masses. FINDINGS: This digital mammogram was also analyzed by the Computer Aided Detection System (CAD), [employer], Version 8.3. There is a focal asymmetry within the lateral right breast at posterior and mid depth. A questionable area of architectural distortion is seen within the posterior left breast just lateral to the posterior nipple line. ASSESSMENT: Incomplete evaluation. Additional imaging is needed. BI-RADS 0. RECOMMENDATIONS: 1. Diagnostic right breast mammogram. Additional imaging of the right breast to include spot tomosynthesis in the CC and MLO projections. A right breast ultrasound may be obtained if clinically warranted. 2. Diagnostic left breast mammogram. Additional imaging of the left breast to include tomosynthesis in the CC projection. A left breast ultrasound may be obtained if clinically warranted. [id number] Laith Patel DO MAMMO ORDERABLES Final Re sult documented in this encounter Visit Diagnoses Diagnosis Screening mammogram, encounter for Screening mammogram, encounter for documented in this encounter Care Teams Translator/Interpreter Relationship Specialty Start Date End Date Non-Staff, Physician NO ADDRESS ON FILE PCP - General 02/22/17 documented as of this encounter
--- OUTSIDE RECORDS SUMMARY | 2025-02-08 14:39 | XMS_ITS | Clinical Summary ---
Author Organization [facility] Address [address] [facility] [address] [place] [address] Phone Care Team Providers Care Net Finisher Name Role Phone Non-Staff, Physician Primary Care Provider Unava ilable Allergies Active Allergy Reactions Criticality Noted Date Comments Iodine Anaphylaxis High 12/28/2013 Penicillins Anaphylaxis High 12/28/2013 Medications isosorbide mononitrate (IMDUR) 30 mg Extended Release 24 hour tablet Take 2.5 mg by mouth 2 times daily. Active digoxin (LANOXIN) 125 mcg tablet Take 125 mcg by mouth daily. Active potassium chloride (KLOR-CON) 15 mEq Extended Release tablet Take 20 mEq by mouth 3 times daily. Active clopidogrel (PLAVIX) 75 mg Tablet Take 75 mg by mouth. Active amitriptyline (ELAVIL) 25 mg tablet Take 25 mg by mouth daily at bedtime. Active furosemide (LASIX) 20 mg tablet Take 20 mg by mouth daily. Active HYDROcodone-acet aminophen (NORCO) 5-325 mg tablet Take 1 Tab by mouth every 4 hours as needed for Pain, Moderate. 12 Tab None 12/28/2013 Active ibuprofen (MOTRIN) 400 mg tablet Take 1 Tab by mouth every 6 hours as needed for Pain, Mild. 20 Tab None 12/28/2013 Active Active Problems No known active problems Family History Medical History Relation Name Comments Breast Cancer Neg Hx Ovarian Cancer Neg Hx Relation Name Status Comments Brother 1 Alive Brother 2 Alive Brother 3 Alive Brother 4 Daughter 1 Alive Daughter 2 AUDIE Alive Maternal Grandmother Mother Sister 1 Alive Sister 2 Alive Sister 3 Alive Sister 4 Sister 5 Son Alive Social History Tobacco Use Types Packs/Day Years Used Date Smoking Tobacco: Every Day Cigarettes Alcohol Use Standard Drinks/Week Comments No 0 (1 standard drink = 0.6 oz pur e alcohol) Comments No Sex and Gender Information Value Date Recorded Sex Assigned at Not on file 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 Gender Identity Not on file Sexual Orientation Not on file Last Filed Vital Signs Vital Sign Reading Time Taken Comments Blood Pressure 128/66 12/28/2013 5:55 PM CDT Pulse - - Temperature 36.6 C (97.8 F) 12/28/2013 5:55 PM CDT Respiratory Rate 20 12/28/2013 5:55 PM CDT Oxygen Saturation 99% 12/28/2013 5:55 PM CDT Inhaled Oxygen Concentration - - Weight 51.3 kg (113 lb) 12/28/2013 5:07 PM CDT Height 152.4 cm (5') 12/28/2013 5:07 PM CDT Body Mass Index 22.07 12/28/2013 5:07 PM CDT Plan of Treatment Health Maintenance Due Date Last Done Comments DTAP/TDAP/TD VACCINES (1 - Tdap) 09/15/1966 PNEUMOCOCCAL VACCINE 50+ YEARS (1 of 2 - PCV) 09/15/18 67 ZOSTER VACCINE (1 of 2) 09/15/1997 OSTEOPOROSIS SCREENING 09/15/2012 RSV VACCINE (60+ or ) (1 - 1-dose 75+ series) 09/15/2022 INFLUENZA VACCINE (#1) 2025 Insurance MEDICAID [facility] DUAL COMPLETE [facility] PPO D-SNP Care Teams Net Finisher Relationship Specialty Start Date End Date Non-Staff, Physician NO ADDRESS ON FILE PCP - General 02/22/17
--- NOTE | 2025-02-08 14:48 | CTR_ITS ---
PROCEDURE INFORMATION: Exam: CT Head Without Contrast Exam date and time: 02/08/2025 2:50 PM Age: 79 years old Clinical indication: Stroke-like symptoms; Altered mental status/memory loss; Additional info: Symptoms of acute stroke TECHNIQUE: Imaging protocol: Computed tomography of the head without contrast. Radiation optimization: All CT scans at this facility use at least one of these dose optimization techniques: automated exposure control; mA and/or kV adjustment per patient size (includes targeted exams where dose is matched to clinical indication); or iterative reconstruction. Other technique: STROKE PROTOCOL was implemented. COMPARISON: CT head wo con* [id number] 11/24/2024 5:17 AM RADIATION DOSE METRICS: Total DLP (mGy-cm): 938.54 FINDINGS: Brain: Sequela of moderate chronic microvascular ischemic changes with periventricular and deep white matter hypoattenuation. 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 Gallagher-white differentiation is otherwise maintained. No evidence of intra-axial or extra-axial hemorrhage. No mass effect or midline shift. Basilar cisterns are patent. Cerebral ventricles: No hydrocephalus. Paranasal sinuses: The visualized paranasal sinuses are well aerated. Mastoid air cells: The visualized mastoids and middle ears are clear. Bones: Calvarium is intact. No evidence of acute fracture. Soft tissues: No gross soft tissue abnormality. CT/CT head thrombolytic [id number] IMPRESSION: 1. No acute intracranial abnormality. ASSESSMENT: ASPECTS ([place] Stroke Program Early CT Score) is 10.
--- NOTE | 2025-02-08 14:50 | ED_ITS ---
HPI - Altered Mental Status 2 General: Chief Complaint: Altered Mental Status Stated Complaint: lethargy / wont acknowledge anyone Time Seen by Provider: 02/08/25 14:45 History of Present Illness: 79-year-old female presents to the [facility] ency room via private vehicle. Her last Tylenol was around 1230. Patient is not diabetic is not on any opiates. She was found unresponsive after she had gone to the restroom. 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 Related Data Home Medications ?Medication ?Instructions ?Recorded ?Confirmed amitriptyline 25 mg tablet 25 mg PO BEDTIME 09/09/19 0 02/08/25 nitroglycerin 0.4 mg sublingual 0.4 mg sublingual PRN PRN Chest 09/09/19 02/08/25 tablet Pain primidone 50 mg tablet 50 mg PO BID 07/16/20 simvastatin 20 mg tablet 20 mg PO DAILY 01/04/2101/18 tizanidine 4 mg tablet 4 mg PO Q6H PRN Spasms 07/3002/08/25 dexlansoprazole 60 mg 60 mg PO DAILY 07/07/2301/18 capsule,biphase delayed release potassium chloride 10 mEq 10 meq PO DAILY 07/07/23 tablet,extended release Held on 11/30/24. Instructions: Resume on 12/07/24. cilostazol 50 mg tablet 50 mg PO BID 06/20/24 furosemide 20 mg tablet See Rx Instructions .Route . COMPLEX 06/20/24 02/08/25 Held on 11/30/24. Instructions: Resume on 12/07/24. omeprazole 40 mg capsule,delayed 40 mg PO DAILY 02/08/25 release amlodipine 5 mg tablet 5 mg PO DAILY 11/23/2402/08 naproxen 500 mg tablet 500 mg PO BID 11/23/2402/08 Held on 11/30/24. Instructions: Resume on 12/07/24. Allergies Allergy/AdvReac Type Severity Reaction Status Date / Time iodine Allergy Unknown Verified 02/08/25 14:39 Penicillins Allergy ALGY-Anaphy Verified 02/08/25 14:39 laxis Review of Systems 2 General: Reports: ROS unobtainable due to mental status [facility] ED 2 PFSH: Medical History Coronary artery disease involving [place] coronary artery of [place] heart without angina pectoris Hypotension History of echocardiogram 09/10/2019 EF 69%, I/IV diastolic dysfunction History of Holter monitoring 05/2020 baseline rhythm sinus, 74 bpm, no arrhythmias History of stress test 08/2020 normal myocardial perfusion imaging, no ekg changes History of hypertension in past Mixed hyperlipidemia Digoxin toxicity Bacteremia due to Escherichia coli (~08/2019) Acute upper gastrointestinal bleeding (~06/2021) required transfusion 3 units pRBCs Chronic kidney disease, unspecified CKD stage Postural orthostatic tachycardia syndrome COPD (chronic obstructive pulmonary disease) Anemia Surgical History History of cardiac catheterization 2020 - moderate mid circumflex and LAD lesions though not significant by FFR Status post laparoscopic cholecystectomy (04/14/21) H/O ventral hernia repair Status post right inguinal hernia repair H/O esophagogastroduodenoscopy (07/30/21) Duodenitis Status post colonoscopy (07/30/21) Diverticulosis History of appendectomy History of 3 sections Family History Father Stroke Denies family history of Diabetes CAD (coronary artery disease) Family history of premature coronary artery disease Social History Smoking and tobacco/nicotine status: current every day tobacco/nicotine user (1/2 pack a day) cigarettes Packs smoked per day: 1.5 Years cigarettes smoked: 57 Quit status (tobacco/nicotine): not considering quitting Alcohol intake: never Substance/Drug Use: never Lives independently: Yes Household members: spouse Marital status: Current occupational status: retired Do you think of yourself as: Straight/Heterosexual Current gender identity: Female Physical Exam 2 HENMT: COMMON NORMALS: normocephalic and atraumatic HEAD & SCALP: n ormocephalic and atraumatic Resp: COMMON NORMALS: normal respiratory effort, No retractions, No use of accessory muscles and clear to auscultation bilaterally AUSCULTATION: clear to auscultation bilaterally Cardio: COMMON NORMALS: regular rate, regular rhythm and No murmurs present (Cardio) RATE: regular rate RHYTHM: regular rhythm GI: COMMON NORMALS: Soft to palpation and No hepatosplenomegaly present A USCULTATION: Yes normoactive bowel sounds PALPATION: Yes Soft to palpation, No Tenderness to palpation present (GI), No Guarding due to palpation present (GI) and Yes No hepatosplenomegaly present Extremity: COMMON NORMALS: normal to inspection, capillary refill normal, no clubbing, cyanosis or edema, no calf tenderness and no pedal edema Skin: COMMON NORMALS: no rashes or lesions noted GENERAL SKIN EXAM: no rashes or lesions noted Course 2 Vital Signs: Vital signs: Vital Signs Temperature 98.2 F 02/11/25 00:00 Pulse Rate 80 02/11/25 00:00 Respiratory Rate 13 02/11/25 00:00 Blood Pressure 150/72 02/11/25 00:00 Pulse Oximetry 96 02/11/25 00:00 Oxygen Delivery Me thod Room Air 02/11/25 00:00 MDM - Altered Mental Status Medical Decision Making Patient is completely nonresponsive except for glabellar tap she does not even grimace with sternal rub. Discussed with Dr. Dunaway. CTs shows old disease but no acute bleeds. She is untestable for an NIH. Dr. Dunaway recommends against giving TNKase. Drug screen positive for barbiturate - possibly from primidone. Patient has a history of seizures no reported seizure activity. She has chronic kidney disease and her renal function is about at baseline there is no leukocytosis . She may be postictal did not improve while she was in the emergency room. Urine shows positive nitrites and 4+ bacteria. Discussed with hospitalist we can initiate ceftriaxone. Also notes that she had a previous B12 that was low that is not been treated to this point. Orders written for admission Medical Records I reviewed the patient's medical records. Lab Data I reviewed the patient's lab results. 02/10/25 05:50 02/10/25 05:[address] 02/08/25 14:48 IMPRESSION: 1. No acute intracranial abnormality. ASSESSMENT: ASPECTS ([place] Stroke Program Early CT Score) is 10. Chest X-Ray 02/09/25 09:28 IMPRESSION: No acute findings. Laboratory Results WBC 6.05 10^3/uL (3.29-11.43) 02/09/25 04:05 RBC 2.83 10^6/uL (3.85-5.65) L 02/09/25 04:05 Hgb 9.40 g/dL (11.27-16.99) L 02/09/25 04:05 Hct 28.4 % (36-47) L 02/09/25 04:05 MCV 100.4 fl (85-98) H 02/09/25 04:05 MCH 33.2 pg (27-33) H 02/09/25 04:05 MCHC 33.1 g/dL (30-55) 02/09/25 04:05 RDW 12.5 % (12.1-15.1) 02/09/25 04:05 Plt Count 337 10^3/cmm (157-399) 02/09/25 04:05 MPV 10.0 fL (7.4-10.4) 02/09/25 04:05 Neut % (Auto) 65.6 % 02/09/25 04:05 Lymph % (Auto) 18.2 % 02/09/25 04:05 [place] % (Auto) 8.6 % 02/09/25 04:05 Eos % (Auto) 6.9 % 02/09/25 04:05 Baso % (Auto) 0.5 % 02/09/25 04:05 Neut # (Auto) 3.97 10^3/uL (1.8-7.7) 02/09/25 04:05 Lymph # (Auto) 1.1 10^3/uL (0.8-4.8) 02/09/25 04:05 [place] # (Auto) 0.5 10^3/uL (0.2-0.9) 02/09/25 04:05 Eos # (Auto) 0.4 10^3/uL (0.0-0.8) 02/09/25 04:05 Baso # (Auto) 0.0 10^3/uL (0.0-0.1) 02/09/25 04:05 Nucleated RBC % (auto) 0 % 02/09/25 04:05 Nucleated RBCs # 0.0 /100WBC 02/09/25 04:05 PT 12.70 SECONDS (12.1-14.9) 02/08/25 15:29 INR 0.89 (0.8-1.2) 02/08/25 15:29 APTT 27.0 SECONDS (23.9-36.7) 02/08/25 15:29 Specimen Type Arterial 02/08/25 15:32 Sample Site Radial, left 02/08/25 15:32 ABG pH 7.40 (7.35-7.45) 02/08/25 15:32 ABG pCO2 37.6 mmHg (35-45) 02/08/25 15:32 ABG pO2 70.4 mmHg (80.0-100.0) L 02/08/25 15:32 ABG PO2/FiO2 Ratio 335 02/08/25 15:32 ABG HCO3 23.3 mmol/L (22-26) 02/08/25 15:32 ABG O2 Saturation 94.8 02/08/25 15:32 ABG Base Excess -1.3 mmol/L (-2.0-2.0) 02/08/25 15:32 Jose Alejandro Test Pos 02/08/25 15:32 A-a O2 Gradient 4.2 mmHg (5-10) L 02/08/25 15:32 Hematocrit 32.5 % (37-47) L 02/08/25 15:32 Hgb O2 Saturation 92.5 % (95-100) L 02/08/25 15:32 Carboxyhemoglobin 2.0 %THgb (0.4-20.1) 02/08/25 15:32 Methemoglobin 0.4 % (0.4-1.5) 02/08/25 15:32 Total Hemoglobin 10.6 g/dL (12-16) L 02/08/25 15:32 Sodium 135.0 mmol/L (131-143) 02/08/25 15:32 Potassium 3.9 mmol/L (3.5-5.0) 02/08/25 15:32 Glucose 96.0 mg/dL (70-115) 02/08/25 15:32 Ionized Calcium 1.1 mmol/L (1.1-1.4) 02/08/25 15:32 O2 Delivery Device Room air 02/08/25 15:32 FiO2 21.0 % 02/08/25 15:32 Quarry Equipment Operator ID [email or web address] 02/08/25 15:32 Sodium 139 mmol/L (136-145) 02/09/25 04:05 Potassium 4.0 mmol/L (3.5-5.1) 02/09/25 04:05 Chloride 102 mmol/L (98-107) 02/09/25 04:05 Carbon Dioxide 21 mmol/L (22-29) L 02/09/25 04:05 Anion Gap 20.0 (5-19) H 02/09/25 04:05 BUN 17 mg/dL (8-23) 02/09/25 04:05 Creatinine 2.0 mg/dL (0.5-0.9) H 02/09/25 04:05 GFR Calculation Not Reportable 02/09/25 04:05 Glucose 64 mg/dL (65-115) L 02/09/25 04:05 POC Glucose 74 mg/dL (70-110) 02/09/25 11:49 Calculated Osmolality 288 mOsm/kg (285-295) 02/09/25 04:05 Lactic Acid 1.1 mmol/L (0.5-2.2) 02/08/25 15:29 Calcium 8.4 mg/dL (8.5-10.5) L 02/09/25 04:05 Phosphorus 4.2 mg/dL (2.5-4.5) 02/08/25 15:29 Magnesium 2.0 mg/dL (1.7-2.3) 02/08/25 15:29 Magnesium 2.0 mg/dL (1.7-2.3) 02/08/25 15:29 Total Bilirubin 0.2 mg/dL (0.15-1.2) 02/09/25 04:05 AST 12 U/L (0-32) 02/09/25 04:05 ALT 6 U/L (0-33) 02/09/25 04:05 Alkaline Phosphatase 143 U/L (35-105) H 02/09/25 04:05 Total Protein 6.5 g/dL (6.6-8.7) L 02/09/25 04:05 Albumin 3.9 g/dL (3.5-5.2) 02/09/25 04:05 Globulin 2.6 g/dL (1.3-4.6) 02/09/25 04:05 Lipase 30 U/L (13-60) 02/08/25 15:29 Vitamin B12 226 pg/mL (232-1245) L 02/08/25 15:29 Folate 7.0 ng/mL (4.8-37.3) 02/08/25 15:29 TSH 1.06 uIU/mL (0.27-4.20) 02/08/25 15:29 Urine Color Yellow (Yellow) 02/08/25 15:15 Urine Appearance Clear (CLEAR) 02/08/25 15:15 Urine pH 6.0 (5-7) 02/08/25 15:15 Ur Specific [place] 1.006 (1.005-1.030) 02/08/25 15:15 Urine Protein Negative (Negative) 02/08/25 15:15 Urine Glucose (UA) Negative (Normal) 02/08/25 15:15 Urine Ketones Negative (Negative) 02/08/25 15:15 Urine Blood Negative (Negative) 02/08/25 15:15 Urine Nitrate Positive (Negative) A 02/08/25 15:15 Urine Bilirubin Negative (Negative) 02/08/25 15:15 Urine Urobilinogen 0.2 mg/dL (Negative) 02/08/25 15:15 Ur Leukocyte Esterase Trace (Negative) A 02/08/25 15:15 Urine RBC 0-2 /hpf (0-2) 02/08/25 15:15 Urine WBC 0-5 /hpf (0-5) 02/08/25 15:15 Ur Squamous Epith Cells 0-5 /hpf (0-5) 02/08/25 15:15 Amorphous Sediment Not Reportable 02/08/25 15:15 Urine Bacteria 4+ /hpf (NONE) H 02/08/25 15:15 Hyaline Casts 0.81 /lpf 02/08/25 15:15 Urine Opiates Screen Negative ng/mL (Negative) 02/08/25 15:15 Ur Barbiturates Screen Positive ng/mL (Negative) H 02/08/25 15:15 Ur Phencyclidine Scrn Negative ng/mL (Negative) 02/08/25 15:15 Ur Amphetamines Screen Negative ng/mL (Negative) 02/08/25 15:15 U Benzodiazepines Scrn Negative ng/mL (Negative) 02/08/25 15:15 Urine Cocaine Screen Negative ng/mL (Negative) 02/08/25 15:15 U Marijuana (THC) Screen Negative ng/mL (Negative) 02/08/25 15:15 Serum Ketones Negative (Negative) 02/08/25 15:29 RPR Nonreactive (Nonreactive) 02/08/25 15:29 HIV 1&2 Ab & HIV 1 Ag Non-reactive (Non-Reactiv) 02/08/25 15:29 HIV 1&2 Antibody Non-reactive (Non-Reactiv) 02/08/25 15:29 Influenza A (PCR) Negative (Negative) 02/08/25 15:17 Influenza Type B (PCR) Negative (Negative) 02/08/25 15:17 RSV (PCR) Negative (Negative) 02/08/25 15:17 SARS-CoV-2 (PCR) Negative (Negative) 02/08/25 15:17 All radiology interpretation(s) finalized by discharge Discharge Plan Discharge Patient Disposition: Placed in Observation Admit Provider: Shante Estrada Clinical Impression: Syncope, unspecified syncope type, Chronic kidney disease, unspecified CKD stage, UTI (urinary tract infection), Anemia, Altered mental status Discharge Diet: Advance as tolerated and Usual diet Coding Level of Care Code ED Web Application Tester for Justus Greenwood
--- NOTE | 2025-02-08 14:55 | ECG_ITS ---
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 Measurements Intervals [place] Rate: 76 P: 56 AR: 155 QRS: -1 QRSD: 63 T: 111 QT: 354 QTc: 399 Interpretive Statements SINUS RHYTHM NONSPECIFIC T-WAVE ABNORMALITY Compared to ECG 01/02/2025 12:01:44 No significant changes Electronically Signed On 02-09-2025 18:56:47 CDT by Adria Mcdonald M.D. [email or web address]
[2025-02-08 15:22] LABS: Glucose Urine UA Negative (Normal); Nitrate Urine Positive (Negative); Specific Gravity, Urine 1.006 (1.005-1.030)
[2025-02-08 15:27] LABS: Add Urine Microscopic? YES
[2025-02-08 15:29] LABS: PCP Screen Urine Negative (Negative)
[2025-02-08 15:36] LABS: Hematocrit 30.4 % (36-47); Hemoglobin 9.90 g/dL (11.27-16.99); Mean Corpuscular HGB Conc 32.6 g/dL (30-55); Mean Corpuscular Hemoglobin 33.2 pg (27-33); Mean Corpuscular Volume 102.0 fl (85-98); Nucleated Red Blood Cells % 0 %; Platelet Count 360 10^3/cmm (157-399); Red Blood Count 2.98 10^6/uL (3.85-5.65); White Blood Count 9.01 10^3/uL (3.29-11.43)
[2025-02-08 15:44] LABS: ABG PCO2 37.6 mmHg (35-45); ABG PH Result 7.40 (7.35-7.45); Alveolar-Arterial Oxygen Gradi 4.2 mmHg (5-10); Arterial Blood Gas Hematocrit 32.5 % (37-47); Blood Gas Allen Test Pos; Blood Gas Sample Type Arterial; Carboxyhemoglobin 2.0 %THgb (0.4-20.1); Glucose Level-ABG 96.0 mg/dL (70-115); HCO3 ABG 23.3 mmol/L (22-26); Ionized Calcium Level - ABG 1.1 mmol/L (1.1-1.4); Methemoglobin 0.4 % (0.4-1.5); Oxygen Saturation ABG 94.8; PO2 ABG 70.4 mmHg (80.0-100.0); Potassium Level - ABG 3.9 mmol/L (3.5-5.0); Sodium Level - ABG 135.0 mmol/L (131-143)
[2025-02-08 15:45] LABS: Blood Gas Operator Identificat glc; Blood Gas Sample Site Radial, left; PO2 FiO2 Ratio Arterial Blood 335
[2025-02-08 15:49] LABS: INR 0.89 (0.8-1.2); Prothrombin Time 12.70 SECONDS (12.1-14.9)
[2025-02-08 15:50] LABS: Partial Thromboplastin Time 27.0 SECONDS (23.9-36.7)
[2025-02-08 15:53] LABS: Alanine Aminotransferase 6 U/L (0-33); Albumin Level 4.0 g/dL (3.5-5.2); Alkaline Phosphatase 155 U/L (35-105); Anion Gap 17.2 (5-19); Aspartate Amino Transferase 12 U/L (0-32); Blood Urea Nitrogen 19 mg/dL (8-23); Calcium 8.3 mg/dL (8.5-10.5); Carbon Dioxide 21 mmol/L (22-29); Chloride 96 mmol/L (98-107); Creatinine Clr Calc Pharmacy 18.1439; Globulin 2.9 g/dL (1.3-4.6); Glucose 95 mg/dL (65-115); Lactic Sepsis W/Reflex 1.1 mmol/L (0.5-2.2); Lipase 30 U/L (13-60); Magnesium 2.0 mg/dL (1.7-2.3); Osmolality Calculated 272 mOsm/kg (285-295); Potassium 4.2 mmol/L (3.5-5.1); Sodium 130 mmol/L (136-145); Total Protein 6.9 g/dL (6.6-8.7)
[2025-02-08 15:55] LABS: Ketone (Acetest) Serum Negative (Negative)
[2025-02-08 15:58] LABS: Respiratory Syncytial Virus Ce NEGATIVE (Negative); SARS-CoV-2 PCR NEGATIVE (Negative)
--- NOTE | 2025-02-08 18:00 | PM.HP ---
Providers/Chief Complaint Primary Care Provider: Laith Patel Chief Complaint: lethargy / wont acknowledge anyone History of Present Illness As per the previous chart and the patient/family Maile López is a 79 year old female with past medical history of legally blind, orthostatic hypotension, chronic kidney disease, history of frequent falls and altered mentation at baseline secondary likely to dementia, hypertension, hyperlipidemia history of cardiac arrest in 2020 as per the previous documentation, bilateral carotid artery stenosis Less than 50%, came with altered mentation in the ER. As per the son the patient has been having altered mentation and different behavior from the last few weeks. He also reported having mild stiffness and decreased mobility around the house. There was no episode of nausea vomiting diarrhea chest pain or shortness of breath. The patient also has poor oral intake in general as per the son however she only takes her supper. No falls no loss of consciousness or no abnormal movements noticed by the family Review of Systems General: Reports: ROS unobtainable due to mental status Medications/Allergies Home Medications ?Medication ?Instructions ?Recorded ?Confirmed ?Last Taken ?Type amitriptyline 25 mg tablet 25 mg PO BEDTIME 09/09/19 02/08/25 02/07/25 History nitroglycerin 0.4 mg sublingual 0.4 mg sublingual PRN PRN Chest 09/09/19 02/08/25 Unknown History tablet Pain primidone 50 mg tablet 50 mg PO BID 07/16/20 02/08/25 02/08/25 History simvastatin 20 mg tablet 20 mg PO DAILY 01/04/21 02/08/25 02/08/25 History tizanidine 4 mg tablet 4 mg PO Q6H PRN Spasms 07/30/21 02/08/25 Unknown History dexlansoprazole 60 mg 60 mg PO DAILY 07/07/23 02/08/25 02/08/25 History capsule,biphase delayed release potassium chloride 10 mEq 10 meq PO DAILY 07/07/23 02/08/25 02/08/25 History tablet,extended release Held on 11/30/24. Instructions: Resume on 12/07/24. cilostazol 50 mg tablet 50 mg PO BID 06/20/24 02/08/25 02/08/25 History furosemide 20 mg tablet See Rx Instructions .Route .COMPLEX 06/20/24 02/08/25 02/08/25 History Held on 11/30/24. Instructions: Resume on 12/07/24. omeprazole 40 mg capsule,delayed 40 mg PO DAILY 06/20/24 02/08/25 02/08/25 History release amlodipine 5 mg tablet 5 mg PO DAILY 11/23/24 02/08/25 02/08/25 History naproxen 500 mg tablet 500 mg PO BID 11/23/24 02/08/25 02/08/25 History Held on 11/30/24. Instructions: Resume on 12/07/24. Allergies Allergy/AdvReac Type Severity Reaction Status Date / Time iodine Allergy Unknown Verified 02/08/25 14:39 Penicillins Allergy ALGY-Anaphy Verified 02/08/25 14:39 laxis PFSH Acute PFSH: Medical History (Updated 02/08/25 @ 18:07 by Shante Estrada MD) Coronary artery disease involving [place] coronary artery of [place] heart without angina pectoris Hypotension History of echocardiogram 09/10/2019 EF 69%, I/IV diastolic dysfunction History of Holter monitoring 05/2020 baseline rhythm sinus, 74 bpm, no arrhythmias History of stress test 08/2020 normal myocardial perfusion imaging, no ekg changes History of hypertension in past Mixed hyperlipidemia Digoxin toxicity Bacteremia due to Escherichia coli (~08/2019) Acute upper gastrointestinal bleeding (~06/2021) required transfusion 3 units pRBCs Chronic kidney disease, unspecified CKD stage Postural orthostatic tachycardia syndrome COPD (chronic obstructive pulmonary disease) Anemia Surgical History History of cardiac catheterization 2020 - moderate mid circumflex and LAD lesions though not significant by FFR Status post laparoscopic cholecystectomy (04/14/21) H/O ventral hernia repair Status post right inguinal hernia repair H/O esophagogastroduodenoscopy (07/30/21) Duodenitis Status post colonoscopy (07/30/21) Diverticulosis History of appendectomy History of 3 sections Family History Father Stroke Denies family history of Diabetes CAD (coronary artery disease) Family history of premature coronary artery disease Social History Smoking and tobacco/nicotine status: current every day tobacco/nicotine user (1/2 pack a day) cigarettes Packs smoked per day: 1.5 Years cigarettes smoked: 57 Quit status (tobacco/nicotine): not considering quitting Alcohol intake: never Substance/Drug Use: never Lives independently: Yes Household members: spouse Marital status: Current occupational status: retired Do you think of yourself as: Straight/Heterosexual Current gender identity: Female Vitals/I&O/Wt Last Vital Signs Temp 98.3 F 02/08/25 15:02 Pulse 74 02/08/25 17:58 Resp 17 02/08/25 17:58 BP 175/78 02/08/25 17:58 Pulse Ox 100 02/08/25 17:58 O2 Del Method Room Air 02/08/25 17:58 02/08/25 02/08/25 02/08/25 06:59 14:59 22:59 Intake Total 0 / 0 Balance 0 / 0 Weight last 48 hrs Weight 47.627 kg Physical Exam Narrative: General: Not communicating just blinking, lying with her eyes open spontaneously HEENT: Normocephalic, atraumatic, EOMI, breathing comfortably at room air Cardio: Regular rate rhythm, normal S1-S2, no murmurs rubs gallops, JVD normal Respiratory: Good bilateral air entry, no wheezes no rhonchi appreciated GI: Abdomen soft, nontender, nondistended, normoactive bowel sounds present all 4 quadrants, Neuro: Cranial nerves II to XII intact, strength 5/5, sensation 5/5, no gross neurological deficit Behavior: Appropriate and cooperative Extremities: Pulses 2+, no edema, no cyanosis Skin: Visible skin intact, no rashes, mild pallor positive Data 02/08/25 15:29 02/08/25 15:29 Micro: Microbiology 02/08/25 15:18 Blood Culture - Preliminary Blood SPECIMEN COLLECTED 02/08/25 15:29 Blood Culture - Preliminary Blood SPECIMEN COLLECTED A&P Assessment and plan 1. Bilateral carotid artery stenosis: 2. Dyslipidemia: 3. UTI (urinary tract infection): 4. Anemia: 5. Chronic kidney disease, unspecified CKD stage: 6. Acute kidney injury: 7. Altered sensorium: 8. Coronary artery disease involving [place] coronary artery of [place] heart without angina pectoris: 9. Falls frequently: Plan: AMS: Likely secondary to UTI, adrian history of previous UTIs Continue ceftriaxone daily Follow-up blood culture and urine cultures Adequate hydration TSH, vitamin B12, vitamin B1 and phosphorus CT head negative UTOX positive for barbiturates, patient on primidone could be the possibility History of frequent falls: OT PT evaluation Avoid medication leading to dizziness Check orthostatics CHRISTELLE on CKD: Maintain euvolemia and adequate hydration Monitor renal functions and electrolytes with correction accordingly Mild hyponatremia: Likely dehydration, continue fluids Dyslipidemia: Continue simvastatin 20 mg daily Hypertension: Continue amlodipine 5 mg daily Hold amlodipine if the blood pressure systolic less than 100 Disposition: The family is agreeing for home health but not care home for the patient care The patient also needs follow-up with the primary care doctor for her medication reconciliation VTE: Heparin twice daily Diet: Cardiac diet PDMP PDMP Reviewed: Not Reviewed Attestations Medical Necessity Statement*: The patient will stay less than 2 midnights for evaluation of her altered mentation and further management accordingly Time Spent in Patient Care: 16 - 35 minutes (>than 50% of time spent in counselling and/or direct pt care on unit). Other Attestations: Patient condition has been discussed at length with the patient/family, I have independently reviewed the chart labs imaging and diagnostics and EKG. the goals of care and code status with the patient/family/NOK/legal automobile sales representative, and documented accordingly. The patient/family has been informed about the current condition and further plan of care. Agreed with the plan of care and understood without any language barrier. This documentation was created by griddig build automation engineer software. Every effort was made to ensure accuracy of build automation engineer. Any obvious errors or omissions should be clarified with the author of the document. Coding Level of Care Code Acute Code for Chg Fwd Diagnoses Bilateral carotid artery stenosis I65.23 Laterality: bilateral Dyslipidemia E78.5 UTI (urinary tract infection) N39.0 Anemia D64.9 Chronic kidney disease, unspecified CKD stage N18.9 Chronic kidney disease stage: unspecified stage Acute kidney injury N17.9 Altered sensorium R40.4 Coronary artery disease involving [place] coronary artery of [place] heart without angina pectoris I25.10 Associated angina: without angina Coronary Disease-Associated Artery/Lesion type: [place] artery [place] vs. transplanted heart: [place] heart Falls frequently R29.6
[2025-02-08 18:52] LABS: Magnesium 2.0 mg/dL (1.7-2.3); Thyroid Stimulating Hormone 1.06 uIU/mL (0.27-4.20)
[2025-02-08 19:37] LABS: HIV 1 & 2 Antigen Non-Reactive (Non-Reactiv)
[2025-02-08 19:58] LABS: Vitamin B12 226 pg/mL (232-1245)
[2025-02-08 21:11] LABS: Rapid Plasma Reagin Syphilis Nonreactive (Nonreactive)
[2025-02-08] MEDS: levofloxacin-dextrose 5 % 750 MG/150 ML PREMIX 100 MG IV (21:34)
[2025-02-08] MEDS: heparin 5,000 unit/mL INJ 1 mL 5000 UNIT SUBCUT (21:37)
[2025-02-09] VITALS (13 sets, daily range): BP systolic 122–143; BP diastolic 67–74; PULSE 82–99; RESP 14–17; TEMP 36.4–37.1; O2SAT 93–97
--- NOTE | 2025-02-09 00:15 | PC.NURSE ---
Patient had one time order of famotidine ordered at 1837. Patient did not arrive to medical floor from ED until 1930. Medication was not able to be pulled from pyxis. Prior order for famotidine at 1800 is pending with comment that says follow up with provider in the morning for renal dosing.
[2025-02-09 04:43] LABS: Hematocrit 28.4 % (36-47); Hemoglobin 9.40 g/dL (11.27-16.99); Mean Corpuscular HGB Conc 33.1 g/dL (30-55); Mean Corpuscular Hemoglobin 33.2 pg (27-33); Mean Corpuscular Volume 100.4 fl (85-98); Nucleated Red Blood Cells % 0 %; Platelet Count 337 10^3/cmm (157-399); Red Blood Count 2.83 10^6/uL (3.85-5.65); White Blood Count 6.05 10^3/uL (3.29-11.43)
[2025-02-09 05:09] LABS: Alanine Aminotransferase 6 U/L (0-33); Albumin Level 3.9 g/dL (3.5-5.2); Alkaline Phosphatase 143 U/L (35-105); Anion Gap 20.0 (5-19); Aspartate Amino Transferase 12 U/L (0-32); Blood Urea Nitrogen 17 mg/dL (8-23); Calcium 8.4 mg/dL (8.5-10.5); Carbon Dioxide 21 mmol/L (22-29); Chloride 102 mmol/L (98-107); Globulin 2.6 g/dL (1.3-4.6); Glucose 64 mg/dL (65-115); Osmolality Calculated 288 mOsm/kg (285-295); Potassium 4.0 mmol/L (3.5-5.1); Sodium 139 mmol/L (136-145); Total Protein 6.5 g/dL (6.6-8.7)
[2025-02-09 05:10] LABS: Creatinine Clr Calc Pharmacy 17.3109
--- OUTSIDE RECORDS SUMMARY | 2025-02-09 09:07 | XMS_ITS | Clinical Summary ---
Author Organization [facility] Facility Address [address] [place] [id number] Care Team Providers Care Marine Machinist Name Role Phone Amanda Laith Primary Care Provider Allergies Active Allergy Reactions Criticality Noted Date [...] to complete this topic Insurance Medicaid [place] ([facility]) Dual Complete Choice [place] Care Teams Marine Machinist Relationship Specialty Start Date End Date Laith Patel DO [address] [place] [phone] PCP - General Family Medicine 10/25/18
--- OUTSIDE RECORDS SUMMARY | 2025-02-09 09:07 | XMS_ITS | Encounter Summary ---
Author Organization [facility] Address [address] [place] [address] Care Team Providers Care Credit Manager Name Role Phone Non-Staff, Physician Primary Care Provider Unava ilable Encounter Details Date Type Department Care Team (Latest Contact Info) Description 03/18/2003 Outpatient Historical [facility] [address] 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
--- OUTSIDE RECORDS SUMMARY | 2025-02-09 09:07 | XMS_ITS | Encounter Summary ---
Author Organization [facility] Address [address] [place] [address] Care Team Providers Care Wet Machine Tender Name Role Phone Non-Staff, Physician Primary Care Provider Unava ilable Encounter Details Date Type Department Care Team (Latest Contact Info) Description 04/03/1998 Outpatient Historical [facility] Rashi Person MD NO ADDRESS ON FILE Carpal tunnel syndrome (Primary Dx); Disorders of bursae and tendons in shoulder region, unspecified; Pain in joint, shoulder region Social History Tobacco Use Types Packs/Day Years Used Date Smoking Tobacco: Never Assessed Comments Unknown Sex and Gender Information Value Date Recorded Sex Assigned at Not on file 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
--- OUTSIDE RECORDS SUMMARY | 2025-02-09 09:07 | XMS_ITS | Encounter Summary ---
Author Organization [facility] Address [address] [place] [address] Care Team Providers Care Glass Block Installer Name Role Phone Non-Staff, Physician Primary Care Provider Unava ilable Encounter Details Date Type Department Care Team (Latest Contact Info) Description 02/24/2017 Ancillary Orders [facility] [address] [facility] [address] [place] [address] Laith Patel, [address] [place] [address] Inconclusive mammogram Social History Tobacco Use Types Packs/Day Years Used Date Smoking Tobacco: Every Day Cigarettes Alcohol Use Standard Drinks/Week Comments No 0 (1 standard drink = 0.6 oz pur e alcohol) Comments No Sex and Gender Information Value Date Recorded Sex Assigned at Not on file Legal Sex Female 3:09 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
--- OUTSIDE RECORDS SUMMARY | 2025-02-09 09:07 | XMS_ITS | Encounter Summary ---
Author Organization [facility] Address [address] [place] [address] Phone Care Team Providers Care Check Scaler Name Role Phone Laith Patle DO Primary Care Provider [phone] Encounter Details Date Type Department Care Team (Late st Contact Info) Description 07/31/2018 Orders Only [facility] [address] [place] [address] Chronic kidney disease, stage 2 [...] (mild) documented in this encounter Care Teams Check Scaler Relationship Specialty Start Date End Date Laith Patel DO [address] [place] [address] PCP - General Family Medicine 10/25/18 documented as of this encounter
--- OUTSIDE RECORDS SUMMARY | 2025-02-09 09:07 | XMS_ITS | Encounter Summary ---
Author Organization [facility] Address [address] [place] [address] Care Team Providers Care Bone Crusher Name Role Phone Non-Staff, Physician Primary Care Provider Unava ilable Reason for Referral * Outpatient Services (Routine) - Closed Specialty Diagnoses / Procedures Referred By Contac t Referred To Contact Radiology Diagnoses Screening mammogram, encounter for Procedures MAMMO SCREEN BILAT W OR WO CAD Laith Patel DO [address] [place] [address] Phone: tel: fax: [facility] [place] [address] [facility] [address] [place] [address] Phone: tel: fax: Referral ID Status Reason Start Date Expiration Date V isits Requested Visits Authorized [id number] Closed [facility] View CTS to Schedule (SGF) 02/06/2017 03/09/2018 1 1 Encounter Details Date Type Department Care Team (Latest Contact Info) Description 02/06/2017 Ancillary Orders [facility] Centralized Scheduling [address] [facility] [address] [place] [address] Laith Patel DO [address] [facility] [address] [place] [address] Screening mammogram, encounter for Social History Tobacco Use Types Packs/Day Years Used Date Smoking Tobacco: Every Day Cigarettes Alcohol Use Standard Drinks/Week Comments No 0 (1 standard drink = 0.6 oz pur e alcohol) Comments No Sex and Gender Information Value Date Recorded Sex Assigned at Not on file Legal 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 There is a focal asymmetry [...] ultrasound may be obtained if clinically warranted. [id number] Procedure Note Antonio Meek MD - 02/24/2017 MAMMO SCREEN BILAT W OR WO CAD INDICATION FOR EXAMINATION: Screening mammogram, encounter for COMPARISONS: None available. BREAST COMPOSITION: Heterogeneously dense which may obscure small masses. FINDINGS: This digital mammogram was also analyzed by the Computer Aided Detection System (CAD), [employer], Version 8.3. There is a focal asymmetry [...] ultrasound may be obtained if clinically warranted. [id number] Laith Patel DO MAMMO ORDERABLES Final Re sult documented in this encounter Visit Diagnoses Diagnosis Screening mammogram, encounter for Screening mammogram, encounter for documented in this encounter Care Teams Bone Crusher Relationship Specialty Start Date End Date Non-Staff, Physician NO ADDRESS ON FILE PCP - General 02/22/17 documented as of this encounter
--- OUTSIDE RECORDS SUMMARY | 2025-02-09 09:07 | XMS_ITS | Encounter Summary ---
Author Organization [facility] Address [address] [place] [address] Care Team Providers Care Wholesale And Retail Merchant Name Role Phone Non-Staff, Physician Primary Care Provider Unava ilable Encounter Details Date Type Department Care Team (Latest Contact Info) Description 02/24/2017 Ancillary Orders [facility] [address] [facility] [address] [place] [address] Laith Patel, [address] [place] [address] Inconclusive mammogram Social History Tobacco Use Types Packs/Day Years Used Date Smoking Tobacco: Every Day Cigarettes Alcohol Use Standard Drinks/Week Comments No 0 (1 standard drink = 0.6 oz pur e alcohol) Comments No Sex and Gender Information Value Date Recorded Sex Assigned at Not on file Legal 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
--- OUTSIDE RECORDS SUMMARY | 2025-02-09 09:07 | XMS_ITS | Encounter Summary ---
Author Organization [facility] Address [address] [place] [address] Care Team Providers Care Critical Care Nurse Name Role Phone Non-Staff, Physician Primary Care Provider Unava ilable Encounter Details Date Type Department Care Team (Latest Contact Info) Description 04/02/2007 Outpatient Historical [facility] [address] 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
--- OUTSIDE RECORDS SUMMARY | 2025-02-09 09:07 | XMS_ITS | Clinical Summary ---
Author Organization [facility] Address [address] [facility] [address] [place] [address] Phone Care Team Providers Care Fitness Technician Name Role Phone Non-Staff, Physician Primary Care [...] on file Legal Sex Female 3:09 AM IAP DISPLAYS ANALYST Gender Identity Not on file Sexual Orientation [...] INFLUENZA VACCINE (#1) 2025 Insurance MEDICAID [place] [facility] DUAL COMPLETE [facility] PPO D-SNP Care Teams Fitness Technician Relationship Specialty Start Date End Date Non-Staff, Physician NO ADDRESS ON FILE PCP - General 02/22/17
--- OUTSIDE RECORDS SUMMARY | 2025-02-09 09:07 | XMS_ITS | Encounter Summary ---
Author Organization [facility] Address [address] [facility] [address] [facility] [address] [place] [address] Phone Care Team Providers Care Target Protection Specialist Name Role Phone Laith Patel DO Primary Care Provider [phone] Encounter Details Date Type Department Care Team (Late st Contact Info) Description 04/27/2019 Orders Only [facility] [address] [place] [address] Elkin Lorenzo MD [address] [facility] [address] [place] [address] Chronic kidney disease, stage 3 (moderate) ([facility]) Social History Tobacco Use Types Packs/Day Years [...] (moderate) documented in this encounter Care Teams Target Protection Specialist Relationship Specialty Start Date End Date Laith Patel DO [address] [place] [address] PCP - General Family Medicine 10/25/18 documented as of this encounter
--- OUTSIDE RECORDS SUMMARY | 2025-02-09 09:07 | XMS_ITS | Clinical Summary ---
Author Organization [employer] Address [address] [facility] [address] Alicia: Epic Prelude ADT [place] [address] Care Team Providers Care Glove Printer Name Role Phone Amanda Laith Wolfe Primary Care Provider [phone] Allergies Active Allergy Reactions Criticality Noted Date [...] on file Legal Sex Female 3:26 PM HOT PLATE PLYWOOD PRESS FEEDER Gender Identity Not on file Sexual Orientation Not on file Last Filed Vital Signs Vital Sign Reading Time Taken Comments Blood Pressure 177/56 04/27/2024 8:55 PM HOT PLATE PLYWOOD PRESS FEEDER Pulse 78 04/27/2024 7:45 PM HOT PLATE PLYWOOD PRESS FEEDER Temperature 36.6 C (97.8 F) 04/27/2024 8:55 PM HOT PLATE PLYWOOD PRESS FEEDER Respiratory Rate 18 04/27/2024 8:55 PM HOT PLATE PLYWOOD PRESS FEEDER Oxygen Saturation 97% 04/27/2024 7:45 PM HOT PLATE PLYWOOD PRESS FEEDER Inhaled Oxygen Concentration - - Weight 49.9 kg (110 lb) 04/27/2024 5:45 PM HOT PLATE PLYWOOD PRESS FEEDER Height 152.4 cm (5') 04/27/2024 5:45 PM HOT PLATE PLYWOOD PRESS FEEDER Body Mass Index 21.48 04/27/2024 5:45 PM HOT PLATE PLYWOOD PRESS FEEDER Plan of Treatment Health Maintenance Due Date Last Done Comments DTAP/TDAP/TD VACCINES (1 - Tdap) 09/15/1966 PNEUMOCOCCAL VACCINE 50+ YEARS (1 of 2 - PCV) 09/15/18 67 ZOSTER VACCINE (1 of 2) 09/15/1997 OSTEOPOROSIS SCREENING 09/15/2012 RSV VACCINE (60+ or ) (1 - 1-dose 75+ series) 09/15/2022 INFLUENZA VACCINE (#1) 2025 Insurance [place]ICAID [facility] DUAL COMPLETE HMO [facility] [id number] Care Teams Glove Printer Relationship Specialty Start Date End Date Laith Patel DO [address] [place] [address] PCP - General Family Practice 04/27/24
--- NOTE | 2025-02-09 09:28 | XRR_ITS ---
PROCEDURE INFORMATION: Exam: XR Chest Exam date and time: 02/09/2025 9:43 AM Age: 79 years old Clinical indication: Cough; Additional info: Cough; Assess for infection TECHNIQUE: Imaging protocol: Radiologic exam of the chest. Views: 1 view. COMPARISON: CR XR chest 1V portable [id number] 11/29/2024 9:37 PM FINDINGS: Lungs: Unremarkable. No consolidation or mass. Pleural spaces: Unremarkable. No pleural effusion. No pneumothorax. Heart/Mediastinum: Unremarkable. No cardiomegaly. Bones/joints: Unremarkable. XR/XR chest 1V portable [id number] IMPRESSION: No acute findings.
--- NOTE | 2025-02-09 09:29 | PM.PN ---
Subjective Subjective: the patient was seen in the morning and was more stable and interactive she was euvolemic and found to have vit b12 def on labs started on replacement the family was informed and agreed with the plan of care Vitals/I&O/Wt Last Vital Signs Temp 98.3 F 02/09/25 08:00 Pulse 88 02/09/25 08:00 Resp 16 02/09/25 08:00 BP 143/74 02/09/25 08:00 Pulse Ox 97 02/09/25 07:50 O2 Del Method Room Air 02/09/25 07:50 02/08/25 02/09/25 02/09/25 22:59 06:59 14:59 Intake Total 390 / 390 Balance 390 / 390 Weight last 48 hrs Weight 48.109 kg Weight 48.126 kg Weight 47.627 kg Physical Exam Narrative: General: alert oriented, at room air and without any distress HEENT: Normocephalic, atraumatic, EOMI, breathing comfortably at room air Cardio: Regular rate rhythm, normal S1-S2, no murmurs rubs gallops, JVD normal Respiratory: Good bilateral air entry, no wheezes no rhonchi appreciated GI: Abdomen soft, nontender, nondistended, normoactive bowel sounds present all 4 quadrants, Neuro: gross unremarkable exam Behavior: Appropriate and cooperative Extremities: Pulses 2+, no edema, no cyanosis Skin: Visible skin intact, no rashes, mild pallor positive Data 02/09/25 04:05 02/09/25 04:05 Micro: Microbiology 02/08/25 15:18 Blood Culture - Preliminary Blood SPECIMEN COLLECTED 02/08/25 15:29 Blood Culture - Preliminary Blood SPECIMEN COLLECTED A&P Assessment and plan 1. Bilateral carotid artery stenosis: 2. Dyslipidemia: 3. Acute cystitis without hematuria: 4. Anemia due to vitamin B12 deficiency, unspecified B12 deficiency type: 5. Chronic kidney disease, unspecified CKD stage: 6. Acute kidney injury: 7. Altered sensorium: 8. 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 Falls frequently: Plan: AMS: Likely secondary to UTI, adrian history of previous UTIs Continue ceftriaxone daily Follow-up blood culture and urine cultures Adequate hydration TSH and P normal, low Vitb12 and to follow vit b1 levels started on vit b12 replacement CT head negative UTOX positive for barbiturates, patient on primidone could be the possibility Vit b12 def: 1000mcg vit b12 subcut for 3 days daily monitor neuro improvement History of frequent falls: OT PT evaluation Avoid medication leading to dizziness check orthostatics malnourishment/protein calorie malnourishment: dietitian consult and to follow the recs CHRISTELLE on CKD: Maintain euvolemia and adequate hydration Monitor renal functions and electrolytes with correction accordingly Mild hyponatremia:resolved continue maintenance fluids Dyslipidemia: Continue simvastatin 20 mg daily Hypertension: Continue amlodipine 5 mg daily Hold amlodipine if the blood pressure systolic less than 100 Disposition: The family is agreeing for home health but not penitentiary for the patient care The patient also needs follow-up with the primary care doctor for her medication reconciliation VTE: Heparin twice daily Diet: Cardiac diet disposition: need HH and further gait assessment before discharge upgrade to as in patient admission since the pt needs more days to optimise her medical condition PDMP PDMP Reviewed: Not Reviewed Attestations Medical Necessity Statement*: the patient will stay more than 2 midnights for optimisation of her medical condition, vit b12 encephalopathy, gait imbalance and malnourishment Time Spent in Patient Care: 16 - 35 minutes (>than 50% of time spent in counselling and/or direct pt care on unit). Other Attestations: Patient condition has been discussed at length with the patient/family, I have independently reviewed the chart labs imaging and diagnostics and EKG. the goals of care and code status with the patient/family/NOK/legal wholesale representative, and documented accordingly. The patient/family has been informed about the current condition and further plan of care. Agreed with the plan of care and understood without any language barrier. This documentation was created by [employer] glassine machine tender software. Every effort was made to ensure accuracy of glassine machine tender. Any obvious errors or omissions should be clarified with the author of the document. 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 transplanted heart: yuhaaviatam heart Falls frequently R29.6
[2025-02-09] MEDS: ATORVASTATIN 10 MG TABLET 20 MG PO (09:58)
[2025-02-09] MEDS: heparin 5,000 unit/mL INJ 1 mL 5000 UNIT SUBCUT ×2 (10:00→21:26)
[2025-02-09] MEDS: cyanocobalamin 1,000 mcg/mL SDV 1000 MCG SUBCUT (10:49)
--- NOTE | 2025-02-09 21:36 | PC.NURSE ---
Patient refused 2100 humalog and stated I aint ever had the sugar diabetes .
[2025-02-10] VITALS (7 sets, daily range): BP systolic 116–163; BP diastolic 62–78; PULSE 71–83; RESP 14–17; TEMP 36.2–37.1; O2SAT 93–95
[2025-02-10 06:27] LABS: Hematocrit 26.0 % (36-47); Hemoglobin 8.40 g/dL (11.27-16.99); Mean Corpuscular HGB Conc 32.3 g/dL (30-55); Mean Corpuscular Hemoglobin 33.5 pg (27-33); Mean Corpuscular Volume 103.6 fl (85-98); Nucleated Red Blood Cells % 0 %; Platelet Count 317 10^3/cmm (157-399); Red Blood Count 2.51 10^6/uL (3.85-5.65); White Blood Count 5.76 10^3/uL (3.29-11.43)
[2025-02-10 06:46] LABS: Alanine Aminotransferase < 5 U/L (0-33); Albumin Level 3.6 g/dL (3.5-5.2); Alkaline Phosphatase 126 U/L (35-105); Anion Gap 15.7 (5-19); Aspartate Amino Transferase 12 U/L (0-32); Blood Urea Nitrogen 11 mg/dL (8-23); Calcium 8.6 mg/dL (8.5-10.5); Carbon Dioxide 21 mmol/L (22-29); Chloride 105 mmol/L (98-107); Creatinine Clr Calc Pharmacy 19.3544; Globulin 1.9 g/dL (1.3-4.6); Glucose 86 mg/dL (65-115); Osmolality Calculated 285 mOsm/kg (285-295); Potassium 3.7 mmol/L (3.5-5.1); Sodium 138 mmol/L (136-145); Total Protein 5.5 g/dL (6.6-8.7)
[2025-02-10 07:22] LABS: Vitamin B12 > 2000 pg/mL (232-1245)
[2025-02-10] MEDS: heparin 5,000 unit/mL INJ 1 mL 5000 UNIT SUBCUT ×2 (08:39→20:10)
[2025-02-10] MEDS: ATORVASTATIN 10 MG TABLET 20 MG PO (08:40)
[2025-02-10] MEDS: cyanocobalamin 1,000 mcg/mL SDV 1000 MCG SUBCUT (08:40)
--- NOTE | 2025-02-10 09:01 | P.PN_ITS ---
Subjective 2 Subjective: the patient was seen in the morning and was more stable and interactive she was euvolemic and found to have vit b12 def on labs started on replacement the family was informed and agreed with the plan of care Vitals/I&O/Wt Last Vital Signs Temp 98.2 F 02/10/25 07:41 Pulse 75 02/10/25 07:41 Resp 17 02/10/25 07:41 BP 159/72 02/10/25 07:41 Pulse Ox 93 02/10/25 07:41 O2 Del Method Room Air 02/10/25 07:41 02/09/25 02/10/25 02/10/25 22:59 06:59 14:59 Intake Total 718 / 1838 1957.5 / 3795.5 Output Total 400 / 400 1649 / 0 Balance 318 / 1438 307.5 / 1745.5 Weight last 48 hrs Weight 48.852 kg Weight 48.109 kg Weight 48.126 kg Weight 47.627 kg Physical Exam 2 Narrative: General: alert oriented, at room air and without any distress HEENT: Normocephalic, atraumatic, EOMI, breathing comfortably at room air Cardio: Regular rate rhythm, normal S1-S2, no murmurs rubs gallops, JVD normal Respiratory: Good bilateral air entry, no wheezes no rhonchi appreciated GI: Abdomen soft, nontender, nondistended, normoactive bowel sounds present all 4 quadrants, Neuro: gross unremarkable exam Behavior: Appropriate and cooperative Extremities: Pulses 2+, no edema, no cyanosis Skin: Visible skin intact, no rashes, mild pallor positive Data 02/10/25 05:50 02/10/25 05:50 Micro: Microbiology 02/08/25 15:18 Blood Culture - Preliminary Blood NEGATIVE TO DATE 02/08/25 15:29 Blood Culture - Preliminary Blood NEGATIVE TO DATE 02/08/25 15:15 Urine Culture - Preliminary Urine,Clean Catch Gram Negative Rods A&P Assessment and plan 1. Bilateral carotid artery stenosis: 2. Dyslipidemia: 3. Acute cystitis without hematuria: 4. Anemia due to vitamin B12 deficiency, unspecified B12 deficiency type: 5. Chronic kidney disease, unspecified CKD stage: 6. Acute kidney injury: 7. Altered sensorium: 8. Coronary artery disease involving del[place] tribe coronary artery of del[place] tribe heart without angina pectoris: 9. Falls frequently: Plan: AMS: Likely secondary to UTI, adrian history of previous UTIs Continue ceftriaxone daily Follow-up blood culture and urine cultures Adequate hydration TSH and P normal, low Vitb12 and to follow vit b1 levels started on vit b12 replacement CT head negative UTOX positive for barbiturates, patient on primidone could be the possibility Vit b12 def: 1000mcg vit b12 subcut for 3 days daily monitor neuro improvement History of frequent falls: OT PT evaluation Avoid medication leading to dizziness check orthostatics malnourishment/protein calorie malnourishment: dietitian consult and to follow the recs CHRISTELLE on CKD: Maintain euvolemia and adequate hydration Monitor renal functions and electrolytes with correction accordingly Mild hyponatremia:resolved continue maintenance fluids Dyslipidemia: Continue simvastatin 20 mg daily Hypertension: Continue amlodipine 5 mg daily Hold amlodipine if the blood pressure systolic less than 100 Disposition: The family is agreeing for home health but not retirement for the patient care The patient also needs follow-up with the primary care doctor for her medication reconciliation VTE: Heparin twice daily Diet: Cardiac diet disposition: need HH and further gait assessment before discharge upgrade to as in patient admission since the pt needs more days to optimise her medical condition PDMP PDMP Reviewed: Not Reviewed Coding Level of Care Code Acute Code for g Fwd Diagnoses Bilateral carotid artery stenosis I65.23 Laterality: bilateral Dyslipidemia E78.5 Acute cystitis without hematuria N30.00 Hematuria presence: without hematuria Urinary tract infection type: acute cystitis Anemia due to vitamin B12 deficiency, unspecified B12 deficiency type D51.9 Anemia type: B12 deficiency Vitamin B12 deficiency anemia type: unspecified B12 deficiency Chronic kidney disease, unspecified CKD stage N18.9 Chronic kidney disease stage: unspecified stage Acute kidney injury N17.9 Altered sensorium R40.4 Coronary artery disease involving del[place] tribe coronary artery of delaware tribe heart without angina pectoris I25.10 Coronary Disease-Associated Artery/Lesion type: del[place] tribe artery [place] vs. transplanted heart: del[place] tribe heart Associated angina: without angina Falls frequently R29.6
--- NOTE | 2025-02-10 10:00 | PC.CHAP ---
Pastoral Care Encounter/Spiritual Assessment Type of Contact [] Declined chicken cutter visit [] Patient/Family/Request visit [] Outpatient visit [] Follow-up visit [] Physician referral [] Code/Alert [x] Routine visit [] Staff referral [] Actively dying [x] Patient sleeping [] Family support [] [] Out of room [] Palliative care [] [] Receiving care in room [] Pre-surgical visit [] Trauma [] Long length of stay [] ICU visit [] Other: Relational/Emotional Strength [] Patient feels connected with others/family/visitors/staff [] Distress [] Loneliness/isolation [] Abandonment Spirituality of Patient [] Person of Lizeth [] Attends Scientologist of their Lizeth [] Believes in Prayer [] Reads Bible or Buddhist materials [] There are Spiritual issues to be addressed Director Of Estate Interventions [x] Prayer [] Active listening [] Non-anxious presence [] Spiritual/emotional support [] Crisis/trauma care [] Spiritual counseling [] Bereavement support [] Provided bereavement packet [] Provided Bible/devotional materials [] Provided toy/stuffed animal, coloring book to patient or family member [] Provided Communion [] Anointing/[place] [] Salvation [] Completed spiritual assessment [] Other: Impact on Illness or Injury [] Angry [] Fearful [] Anxious [] Often cries [] Exhaustion [] Unable to work [] Unable to attend shinto [] Unable to walk/stand [] Unable to read [] Unable to drive [] Unable to eat/drink [] Unable to sleep [] Unable to be with family [] Patient intubated [] Other: Summary Time spent with patient
--- NOTE | 2025-02-10 12:58 | PM.DCS ---
Discharge Providers Date of Admission: 02/09/25 12:54 Date of Discharge: February 10, 2025 Attending Provider at Admission: Shante Estrada MD Attending Provider at Discharge: Shante Estrada MD Primary Care Provider: Laith Patel Diagnoses at Discharge Discharge Diagnosis 1. Bilateral carotid artery stenosis: 2. Dyslipidemia: 3. Acute cystitis without hematuria: 4. Anemia due to vitamin B12 deficiency, unspecified B12 deficiency type: 5. Chronic kidney disease, unspecified CKD stage: 6. Acute kidney injury: 7. Altered sensorium: 8. Coronary artery disease involving [place] coronary artery of [place] heart without angina pectoris: 9. Falls frequently: Reason for Visit Reason for Visit: lethargy / wont acknowledge anyone Brief History: As per the previous chart and the patient/family Maile López is a 79 year old female with past medical history of legally blind, orthostatic hypotension, chronic kidney disease, history of frequent falls and altered mentation at baseline secondary likely to dementia, hypertension, hyperlipidemia history of cardiac arrest in 2020 as per the previous documentation, bilateral carotid artery stenosis Less than 50%, came with altered mentation in the ER. As per the son the patient has been having altered mentation and different behavior from the last few weeks. He also reported having mild stiffness and decreased mobility around the house. There was no episode of nausea vomiting diarrhea chest pain or shortness of breath. The patient also has poor oral intake in general as per the son however she only takes her supper. No falls no loss of consciousness or no abnormal movements noticed by the family Hospital Course Hospital Course The patient was kept in the hospital and further workup was done including with the possibility of sepsis electrolyte imbalanceAnd neurological concerns. CT head was done and did not show any acute abnormality chest x-ray was also unremarkable her UA was suggestive of possible UTI and urine cultures showed E. coli sensitive to levofloxacin which the patient received while her hospital stay. The patient lab parameters improved. For her altered behavior vitamin B12 TSH was sent and she was found to have vitamin B12 deficiency. Was started on replacement. The patient improved significantly with her interaction, cooperation and cognition. The family was informed understand the plan of care without any language barrier. All the risk and benefits of the management was discussed. The patient to be discharged on levofloxacin for total 5 to 7 days to keep her on vitamin B12 replacement. PPI were held considering the cause of vitamin B12 deficiency. The family was also informed about some diet recommendations. The patient to be followed with the primary care doctor and rehab as outpatient postdischarge. The family was also given option for [place] [facility] but opted to take care for her at home. Her case was discussed with the case management and proceeded accordingly for discharge after establishing the stability and safe disposition. Physical Exam Narrative: General: alert oriented, at room air and without any distress HEENT: Normocephalic, atraumatic, EOMI, breathing comfortably at room air Cardio: Regular rate rhythm, normal S1-S2, no murmurs rubs gallops, JVD normal Respiratory: Good bilateral air entry, no wheezes no rhonchi appreciated GI: Abdomen soft, nontender, nondistended, normoactive bowel sounds present all 4 quadrants, Neuro: gross unremarkable exam Behavior: Appropriate and cooperative Extremities: Pulses 2+, no edema, no cyanosis Skin: Visible skin intact, no rashes, mild pallor positive Discharge Data Studies Completed and Pending Completed Studies During Hospitalization Category Date Time Status CT head thrombolytic [id number] Stat Cat Scan 02/08/25 14:48 Completed XR chest 1V portable [id number] Stat Exams 02/09/25 09:28 Completed Pending at discharge Category Date Time Status Blood Culture Stat Lab 02/08/25 15:18 Results CBC Auto Diff [Complete Blood Count w/Auto] AM LABS Lab 02/11/25 04:00 Ordered CMP [Comprehensive Metabolic Panel] AM LABS Lab 02/11/25 04:00 Ordered Comprehensive Metabolic Panel AM LABS Lab 02/11/25 04:00 Ordered Vitamin B1 (Thiamine),Blood Stat Lab 02/09/25 18:26 Received Radiology Impressions Head CT 02/08/25 14:48 IMPRESSION: 1. No acute intracranial abnormality. ASSESSMENT: ASPECTS (Abril Stroke Program Early CT Score) is 10. Chest X-Ray 02/09/25 09:28 IMPRESSION: No acute findings. Laboratory Results WBC 5.76 10^3/uL (3.29-11.43) 02/10/25 05:50 RBC 2.51 10^6/uL (3.85-5.65) L 02/10/25 05:50 Hgb 8.40 g/dL (11.27-16.99) L 02/10/25 05:50 Hct 26.0 % (36-47) L 02/10/25 05:50 MCV 103.6 fl (85-98) H 02/10/25 05:50 MCH 33.5 pg (27-33) H 02/10/25 05:50 MCHC 32.3 g/dL (30-55) 02/10/25 05:50 RDW 12.3 % (12.1-15.1) 02/10/25 05:50 Plt Count 317 10^3/cmm (157-399) 02/10/25 05:50 MPV 9.7 fL (7.4-10.4) 02/10/25 05:50 Neut % (Auto) 67.9 % 02/10/25 05:50 Lymph % (Auto) 16.5 % 02/10/25 05:50 [place] % (Auto) 7.5 % 02/10/25 05:50 Eos % (Auto) 7.3 % 02/10/25 05:50 Baso % (Auto) 0.5 % 02/10/25 05:50 Neut # (Auto) 3.91 10^3/uL (1.8-7.7) 02/10/25 05:50 Lymph # (Auto) 1.0 10^3/uL (0.8-4.8) 02/10/25 05:50 [place] # (Auto) 0.4 10^3/uL (0.2-0.9) 02/10/25 05:50 Eos # (Auto) 0.4 10^3/uL (0.0-0.8) 02/10/25 05:50 Baso # (Auto) 0.0 10^3/uL (0.0-0.1) 02/10/25 05:50 Nucleated RBC % (auto) 0 % 02/10/25 05:50 Nucleated RBCs # 0.0 /100WBC 02/10/25 05:50 PT 12.70 SECONDS (12.1-14.9) 02/08/25 15:29 INR 0.89 (0.8-1.2) 02/08/25 15:29 APTT 27.0 SECONDS (23.9-36.7) 02/08/25 15:29 Specimen Type Arterial 02/08/25 15:32 Sample Site Radial, left 02/08/25 15:32 ABG pH 7.40 (7.35-7.45) 02/08/25 15:32 ABG pCO2 37.6 mmHg (35-45) 02/08/25 15:32 ABG pO2 70.4 mmHg (80.0-100.0) L 02/08/25 15:32 ABG PO2/FiO2 Ratio 335 02/08/25 15:32 ABG HCO3 23.3 mmol/L (22-26) 02/08/25 15:32 ABG O2 Saturation 94.8 02/08/25 15:32 ABG Base Excess -1.3 mmol/L (-2.0-2.0) 02/08/25 15:32 Jose Alejandro Test Pos 02/08/25 15:32 A-a O2 Gradient 4.2 mmHg (5-10) L 02/08/25 15:32 Hematocrit 32.5 % (37-47) L 02/08/25 15:32 Hgb O2 Saturation 92.5 % (95-100) L 02/08/25 15:32 Carboxyhemoglobin 2.0 %THgb (0.4-20.1) 02/08/25 15:32 Methemoglobin 0.4 % (0.4-1.5) 02/08/25 15:32 Total Hemoglobin 10.6 g/dL (12-16) L 02/08/25 15:32 Sodium 135.0 mmol/L (131-143) 02/08/25 15:32 Potassium 3.9 mmol/L (3.5-5.0) 02/08/25 15:32 Glucose 96.0 mg/dL (70-115) 02/08/25 15:32 Ionized Calcium 1.1 mmol/L (1.1-1.4) 02/08/25 15:32 O2 Delivery Device Room air 02/08/25 15:32 FiO2 21.0 % 02/08/25 15:32 Finger Buffs Assembler ID glc 02/08/25 15:32 Sodium 138 mmol/L (136-145) 02/10/25 05:50 Potassium 3.7 mmol/L (3.5-5.1) 02/10/25 05:50 Chloride 105 mmol/L (98-107) 02/10/25 05:50 Carbon Dioxide 21 mmol/L (22-29) L 02/10/25 05:50 Anion Gap 15.7 (5-19) 02/10/25 05:50 BUN 11 mg/dL (8-23) 02/10/25 05:50 Creatinine 1.8 mg/dL (0.5-0.9) H 02/10/25 05:50 GFR Calculation Not Reportable 02/10/25 05:50 Glucose 86 mg/dL (65-115) 02/10/25 05:50 POC Glucose 115 mg/dL (70-110) H 02/10/25 11:13 Calculated Osmolality 285 mOsm/kg (285-295) 02/10/25 05:50 Lactic Acid 1.1 mmol/L (0.5-2.2) 02/08/25 15:29 Calcium 8.6 mg/dL (8.5-10.5) 02/10/25 05:50 Phosphorus 4.2 mg/dL (2.5-4.5) 02/08/25 15: Magnesium 2.0 mg/dL (1.7-2.3) 02/08/25 15:29 Magnesium 2.0 mg/dL (1.7-2.3) 02/08/25 15:29 Total Bilirubin 0.2 mg/dL (0.15-1.2) 02/10/25 05:50 AST 12 U/L (0-32) 02/10/25 05:50 ALT < 5 U/L (0-33) 02/10/25 05:50 Alkaline Phosphatase 126 U/L (35-105) H 02/10/25 05:50 Total Protein 5.5 g/dL (6.6-8.7) L 02/10/25 05:50 Albumin 3.6 g/dL (3.5-5.2) 02/10/25 05:50 Globulin 1.9 g/dL (1.3-4.6) 02/10/25 05:50 Lipase 30 U/L (13-60) 02/08/25 15:29 Vitamin B12 > 2000 pg/mL (232-1245) H 02/10/25 05:50 Folate 7.0 ng/mL (4.8-37.3) 02/08/25 15:29 TSH 1.06 uIU/mL (0.27-4.20) 02/08/25 15:29 Urine Color Yellow (Yellow) 02/08/25 15:15 Urine Appearance Clear (CLEAR) 02/08/25 15:15 Urine pH 6.0 (5-7) 02/08/25 15:15 Ur Specific Hines 1.006 (1.005-1.030) 02/08/25 15:15 Urine Protein Negative (Negative) 02/08/25 15:15 Urine Glucose (UA) Negative (Normal) 02/08/25 15:15 Urine Ketones Negative (Negative) 02/08/25 15:15 Urine Blood Negative (Negative) 02/08/25 15:15 Urine Nitrate Positive (Negative) A 02/08/25 15:15 Urine Bilirubin Negative (Negative) 02/08/25 15:15 Urine Urobilinogen 0.2 mg/dL (Negative) 02/08/25 15:15 Ur Leukocyte Esterase Trace (Negative) A 02/08/25 15:15 Urine RBC 0-2 /hpf (0-2) 02/08/25 15:15 Urine WBC 0-5 /hpf (0-5) 02/08/25 15:15 Ur Squamous Epith Cells 0-5 /hpf (0-5) 02/08/25 15:15 Amorphous Sediment Not Reportable 02/08/25 15:15 Urine Bacteria 4+ /hpf (NONE) H 02/08/25 15:15 Hyaline Casts 0.81 /lpf 02/08/25 15:15 Urine Opiates Screen Negative ng/mL (Negative) 02/08/25 15:15 Ur Barbiturates Screen Positive ng/mL (Negative) H 02/08/25 15:15 Ur Phencyclidine Scrn Negative ng/mL (Negative) 02/08/25 15:15 Ur Amphetamines Screen Negative ng/mL (Negative) 02/08/25 15:15 U Benzodiazepines Scrn Negative ng/mL (Negative) 02/08/25 15:15 Urine Cocaine Screen Negative ng/mL (Negative) 02/08/25 15:15 U Marijuana (THC) Screen Negative ng/mL (Negative) 02/08/25 15:15 Serum Ketones Negative (Negative) 02/08/25 15:29 RPR Nonreactive (Nonreactive) 02/08/25 15:29 HIV 1&2 Ab & HIV 1 Ag Non-reactive (Non-Reactiv) 02/08/25 15:29 HIV 1&2 Antibody Non-reactive (Non-Reactiv) 02/08/25 15:29 Influenza A (PCR) Negative (Negative) 02/08/25 15:17 Influenza Type B (PCR) Negative (Negative) 02/08/25 15:17 RSV (PCR) Negative (Negative) 02/08/25 15:17 SARS-CoV-2 (PCR) Negative (Negative) 02/08/25 15:17 Vitals Last Vital Signs Temp 98.2 F 02/10/25 11:10 Pulse 81 02/10/25 11:10 Resp 16 02/10/25 11:10 BP 153/71 02/10/25 11:10 Pulse Ox 93 02/10/25 11:10 O2 Del Method Room Air 02/10/25 11:10 Discharge Plan Discharge Patient Disposition: Home Condition: Stable Prescriptions: New famotidine 20 mg tablet 20 mg PO DAILY Qty: 60 0RF multivitamin [Daily Multi-Vitamin] Tablet 1 tab PO DAILY Qty: 60 0RF magnesium hydroxide [Milk of Magnesia] 400 mg/5 mL Suspension 30 ml PO DAILY PRN (Reason: Constipation (see protocol)) 60 Days Qty: 3000 0RF levofloxacin 750 mg tablet 750 mg PO DAILY 7 Days Qty: 7 0RF mecobalamin (vitamin B12) 1,000 mcg tablet,chewable 1,000 mcg PO DAILY 90 Days Qty: 90 0RF Continued simvastatin 20 mg tablet 20 mg PO DAILY primidone 50 mg tablet 50 mg PO BID amitriptyline 25 mg tablet 25 mg PO BEDTIME nitroglycerin 0.4 mg tablet, sublingual 0.4 mg sublingual PRN PRN (Reason: Chest Pain) tizanidine 4 mg tablet 4 mg PO Q6H PRN (Reason: Spasms) potassium chloride 10 mEq tablet extended release 10 meq PO DAILY cilostazol 50 mg tablet 50 mg PO BID furosemide 20 mg tablet See Rx Instructions .ROUTE .COMPLEX Rx Instructions: TAKE 2 TABLETS BY MOUTH IN THE MORNING THEN TAKE 1 TABLET BY MOUTH IN THE EVENING. amlodipine 5 mg tablet 5 mg PO DAILY naproxen 500 mg tablet 500 mg PO BID Discontinued dexlansoprazole 60 mg capsule,biphase delayed releas 60 mg PO DAILY omeprazole 40 mg capsule,delayed release(DR/EC) 40 mg PO DAILY Referrals: Maranda Nguyen, OT [Occupational Therapist, Occupational Health] Referral Note: for outpatient rehab and physical movt assessment Laith Patel DO [Primary Care Provider, [facility]] - 4-7 days Referral Note: b12 def, on replacement, stopped PPI considering her b12 def Discharge Diet: Advance as tolerated and Usual diet Patient Instructions: Altered Mental Status (ED), Opioid Safety, Pain Management, Patient Portal & Mouna Instructions Discharge Attestations Time Spent in Discharge Care*: greater than 30 min Specific Discharge Activities: educating patient, educating and/or supporting family/caregiver, discussing with pcp/other providers, discussing with case monitor/social workers/dc planners, documenting/other paperwork and evaluating patient/reviewing data Status at Discharge: Cognitive status at discharge: cognitively intact, Behavioral status at discharge: cooperative and can be uncooperative, Functional status at discharge: other assisted ambulation, Overall status at discharge: patient is back to baseline Quality Metrics Clinical Quality Measures [ No reported AMI, CVA or VTE this stay] Coding Level of Care Code 48246 Diagnoses Bilateral carotid artery stenosis I65.23 Laterality: bilateral Dyslipidemia E78.5 Acute cystitis without hematuria N30.00 Hematuria presence: without hematuria Urinary tract infection type: acute cystitis Anemia due to vitamin B12 deficiency, unspecified B12 deficiency type D51.9 Anemia type: B12 deficiency Vitamin B12 deficiency anemia type: unspecified B12 deficiency Chronic kidney disease, unspecified CKD stage N18.9 Chronic kidney disease stage: unspecified stage Acute kidney injury N17.9 Altered sensorium R40.4 Coronary artery disease involving [place] coronary artery of [place] heart without angina pectoris I25.10 Coronary Disease-Associated Artery/Lesion type: [place] artery [place] vs. transplanted heart: [place] heart Associated angina: without angina Falls frequently R29.6
--- NOTE | 2025-02-10 15:43 | PC.NURSE ---
sponsorship coordinator rounds at 1520- gave patient stroke education book, family bedside, they will be caregivers at DC, included them in education and answered all questions
[2025-02-10] MEDS: levofloxacin-dextrose 5 % 500 MG/100 ML PREMIX 100 MG IV (20:05)
[2025-02-11] VITALS: BP 150/72; PULSE 80; RESP 13; TEMP 36.8; O2SAT 96
[2025-02-11 04:00] VITALS: BP 149/76; PULSE 79; RESP 15; TEMP 36.9; O2SAT 97
[2025-02-11 05:02] LABS: Hematocrit 25.0 % (36-47); Hemoglobin 8.30 g/dL (11.27-16.99); Mean Corpuscular HGB Conc 33.2 g/dL (30-55); Mean Corpuscular Hemoglobin 34.3 pg (27-33); Mean Corpuscular Volume 103.3 fl (85-98); Nucleated Red Blood Cells % 0 %; Platelet Count 301 10^3/cmm (157-399); Red Blood Count 2.42 10^6/uL (3.85-5.65); White Blood Count 6.02 10^3/uL (3.29-11.43)
[2025-02-11 05:25] LABS: Alanine Aminotransferase < 5 U/L (0-33); Albumin Level 3.5 g/dL (3.5-5.2); Alkaline Phosphatase 120 U/L (35-105); Anion Gap 14.6 (5-19); Aspartate Amino Transferase 14 U/L (0-32); Blood Urea Nitrogen 12 mg/dL (8-23); Calcium 8.3 mg/dL (8.5-10.5); Carbon Dioxide 22 mmol/L (22-29); Chloride 106 mmol/L (98-107); Creatinine Clr Calc Pharmacy 20.8976; Globulin 2.6 g/dL (1.3-4.6); Glucose 85 mg/dL (65-115); Osmolality Calculated 287 mOsm/kg (285-295); Potassium 3.6 mmol/L (3.5-5.1); Sodium 139 mmol/L (136-145); Total Protein 6.1 g/dL (6.6-8.7)
[2025-02-11 05:28] VITALS: PULSE 79
[2025-02-11 07:29] VITALS: BP 168/75; PULSE 76; RESP 15; TEMP 36.6; O2SAT 97
[2025-02-11] MEDS: ATORVASTATIN 10 MG TABLET 20 MG PO (08:06)
[2025-02-11] MEDS: cyanocobalamin 1,000 mcg/mL SDV 1000 MCG SUBCUT (08:08)
[2025-02-11] MEDS: heparin 5,000 unit/mL INJ 1 mL 5000 UNIT SUBCUT (08:08)
--- NOTE | 2025-02-11 09:43 | PC.CHAP ---
Pastoral Care Encounter/Spiritual Assessment Type of Contact [] Declined strategic alliances manager visit [] Patient/Family/Request visit [] Outpatient visit [] Follow-up visit [] Physician referral [] Code/Alert [x] Routine visit [] Staff referral [] Actively dying [] Patient sleeping [] Family support [] [] Out of room [] Palliative care [] [] Receiving care in room [] Pre-surgical visit [] Trauma [] Long length of stay [] ICU visit [] Other: Relational/Emotional Strength [x] Patient feels connected with others/family/visitors/staff [] Distress [] Loneliness/isolation [] Abandonment Spirituality of Patient [x] Person of Lizeth [] Attends Holiness of their Lizeth [x] Believes in Prayer [] Reads Bible or Spiritism materials [] There are Spiritual issues to be addressed Manager Of Project Management Interventions [x] Prayer [x] Active listening [x Non-anxious presence [x] Spiritual/emotional support [] Crisis/trauma care [] Spiritual counseling [] Bereavement support [] Provided bereavement packet [] Provided Bible/devotional materials [] Provided toy/stuffed animal, coloring book to patient or family member [] Provided Communion [] Anointing/[place] [] Salvation [x] Completed spiritual assessment [] Other: Impact on Illness or Injury [] Angry [] Fearful [] Anxious [] Often cries [] Exhaustion [] Unable to work [] Unable to attend sabianism [] Unable to walk/stand [] Unable to read [] Unable to drive [] Unable to eat/drink [] Unable to sleep [] Unable to be with family [] Patient intubated [] Other: Summary Time spent with patient 5 min
[2025-02-14 07:55] LABS: Vitamin B1 (Thiamine),Blood 85 nmol/L (78-185)
== END 2025-02-11 10:55 | disposition home or self-care (01) | DRG 690 ==
LOC: ER 16:22 → MEDSURG 19:08
PROVIDERS: Admitting Provider Student in an Organized Health Care Education/Training Program; Emergency Provider Family Medicine; PCP Family Medicine; Visit Provider Student in an Organized Health Care Education/Training Program
DX: N30.00 Acute cystitis without hematuria (principal); N17.9 Acute kidney failure, unspecified; E46 Unspecified protein-calorie malnutrition; E87.1 Hypo-osmolality and hyponatremia; I65.23 Occlusion and stenosis of bilateral carotid arteries; E78.2 Mixed hyperlipidemia; D51.9 Vitamin B12 deficiency anemia, unspecified; I12.9 Hypertensive chronic kidney disease with stage 1 through stage 4 chronic kidney disease, or unspecified chronic kidney disease; N18.9 Chronic kidney disease, unspecified; I25.10 Atherosclerotic heart disease of native coronary artery without angina pectoris; R29.6 Repeated falls; H54.8 Legal blindness, as defined in USA; I95.1 Orthostatic hypotension; F03.90 Unspecified dementia, unspecified severity, without behavioral disturbance, psychotic disturbance, mood disturbance, and anxiety; J44.9 Chronic obstructive pulmonary disease, unspecified; F17.210 Nicotine dependence, cigarettes, uncomplicated; I25.2 Old myocardial infarction; Z88.8 Allergy status to other drugs, medicaments and biological substances; Z68.22 Body mass index [BMI] 22.0-22.9, adult; Z87.440 Personal history of urinary (tract) infections
CPT/HCPCS: 36415; 36416; 36600; 70450; 71045; 80051; 80053; 80306; 81001; 82009; 82330; 82607; 82746; 82805; 82962; 83605; 83690; 83735; 84100; 84425; 84443; 85025; 85610; 85730; 86592; 87040; 87077; 87086; 87186; 87637; 87806; 93005; 96372; 96374; 96375; 97165; 99285; G0378; J1644; J1956; J3420; J3490; J7030; J7120; J9999

== ENCOUNTER 2025-02-14 00:33 | Emergency (ER) | payer OTHER, MEDICAID, SELFPAY ==
[2025-02-14 00:34] VITALS: BP 150/75; PULSE 88; RESP 20; TEMP 36.3; O2SAT 96; BMI 21.4
--- OUTSIDE RECORDS SUMMARY | 2025-02-14 00:40 | XMS_ITS | Clinical Summary ---
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
--- OUTSIDE RECORDS SUMMARY | 2025-02-14 00:40 | XMS_ITS | Encounter Summary ---
Author Organization [facility] Address [address] [place] [address] Phone Care Team Providers Care Police Investigator Name Role Phone Laith Patel DO Primary Care Provider [phone] Encounter Details Date Type Department Care Team (Late st Contact Info) Description 07/31/2018 Orders Only [facility] [address] [place] [address] Chronic kidney disease, stage 2 [...] (mild) documented in this encounter Care Teams Police Investigator Relationship Specialty Start Date End Date Laith Patel DO [address] [place] [address] PCP - General Family Medicine 10/25/18 documented as of this encounter
--- OUTSIDE RECORDS SUMMARY | 2025-02-14 00:40 | XMS_ITS | Encounter Summary ---
Author Organization [facility] Address [address] [place] [address] Care Team Providers Care Auto Mechanics Instructor Name Role Phone Non-Staff, Physician Primary Care Provider Unava ilable Encounter Details Date Type Department Care Team (Latest Contact Info) Description 04/02/2007 Outpatient Historical [facility] [address] 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
--- OUTSIDE RECORDS SUMMARY | 2025-02-14 00:40 | XMS_ITS | Clinical Summary ---
Author Organization [facility] Address [address] [place] [id number] Care Team Providers Care Awake Overnight Counselor Name Role Phone Amanda Laith Primary Care [...] to complete this topic Insurance Medicaid [place] [facility] Dual Complete [place] Care Teams Awake Overnight Counselor Relationship Specialty Start Date End Date Laith Patel DO [address] [place] [id number] PCP - General Family Medicine 10/25/18
--- OUTSIDE RECORDS SUMMARY | 2025-02-14 00:40 | XMS_ITS | Encounter Summary ---
Author Organization [facility] Address [address] [place] [address] Care Team Providers Care Teenage Program Director Name Role Phone Non-Staff, Physician Primary Care Provider Unava ilable Encounter Details Date Type Department Care Team (Latest Contact Info) Description 04/03/1998 Outpatient Historical [facility] Rashi Person MD NO ADDRESS ON FILE Carpal tunnel syndrome (Primary Dx); Disorders of bursae and tendons in shoulder region, unspecified; Pain in joint, shoulder region Social History Tobacco Use Types Packs/Day Years Used Date Smoking Tobacco: Never Assessed Comments Unknown Sex and Gender Information Value Date Recorded Sex Assigned at Not on file 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
--- OUTSIDE RECORDS SUMMARY | 2025-02-14 00:40 | XMS_ITS | Encounter Summary ---
Author Organization [facility] Address [address] [facility] [address] [place] [address] Phone Care Team Providers Care Dish Washer Name Role Phone Laith Patel DO Primary Care Provider [phone] Encounter Details Date Type Department Care Team (Late st Contact Info) Description 04/27/2019 Orders Only [facility] [address] [place] [address] Elkin Lorenzo MD [address] [facility] [address] [place] [address] Chronic kidney disease, stage 3 [...] (moderate) documented in this encounter Care Teams Dish Washer Relationship Specialty Start Date End Date Laith Patel DO [address] [place] [phone] PCP - General Family Medicine 10/25/18 documented as of this encounter
--- OUTSIDE RECORDS SUMMARY | 2025-02-14 00:40 | XMS_ITS | Clinical Summary ---
Author Organization [facility] Address [address] 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 Gender Identity Not on file Sexual Orientation Not on file Last Filed Vital Signs Vital Sign Reading Time Taken Comments Blood Pressure 177/56 04/27/2024 8:55 PM DIESEL PLANT OPERATOR Pulse 78 04/27/2024 7:45 PM DIESEL PLANT OPERATOR Temperature 36.6 C (97.8 F) 04/27/2024 8:55 PM DIESEL PLANT OPERATOR Respiratory Rate 18 04/27/2024 8:55 PM DIESEL PLANT OPERATOR Oxygen Saturation 97% 04/27/2024 7:45 PM DIESEL PLANT OPERATOR Inhaled Oxygen Concentration - - Weight 49.9 kg (110 lb) 04/27/2024 5:45 PM DIESEL PLANT OPERATOR Height 152.4 cm (5') 04/27/2024 5:45 PM DIESEL PLANT OPERATOR Body Mass Index 21.48 04/27/2024 5:45 PM DIESEL PLANT OPERATOR Plan of Treatment Health Maintenance Due Date Last Done Comments DTAP/TDAP/TD VACCINES (1 - Tdap) 09/15/1966 PNEUMOCOCCAL VACCINE 50+ YEARS (1 of 2 - PCV) 09/15/18 67 ZOSTER VACCINE (1 of 2) 09/15/1997 OSTEOPOROSIS SCREENING 09/15/2012 RSV VACCINE (60+ or ) (1 - 1-dose 75+ series) 09/15/2022 INFLUENZA VACCINE (#1) 2025 Insurance MEDICAID [facility] DUAL COMPLETE HMO [facility] [id number] Care Teams Elementary Supervisor Relationship Specialty Start Date End Date Laith Patel DO [address] [place] [address] PCP - General Family Practice 04/27/24
--- OUTSIDE RECORDS SUMMARY | 2025-02-14 00:40 | XMS_ITS | Encounter Summary ---
Author Organization [facility] Address [address] [place] [address] Care Team Providers Care Sliver Machine Operator Name Role Phone Non-Staff, Physician Primary Care Provider Unava ilable Encounter Details Date Type Department Care Team (Latest Contact Info) Description 02/24/2017 Ancillary Orders [facility] [address] [facility] [address] [place] [address] Laith Patel, [address] [place] [address] Inconclusive mammogram Social History Tobacco Use Types Packs/Day Years Used Date Smoking Tobacco: Every Day Cigarettes Alcohol Use Standard Drinks/Week Comments No 0 (1 standard drink = 0.6 oz pur e alcohol) Comments No Sex and Gender Information Value Date Recorded Sex Assigned at Not on file 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
--- OUTSIDE RECORDS SUMMARY | 2025-02-14 00:40 | XMS_ITS | Encounter Summary ---
Author Organization [facility] Address [address] [place] [address] Care Team Providers Care Recreational Aide Name Role Phone Non-Staff, Physician Primary Care Provider Unava ilable Encounter Details Date Type Department Care Team (Latest Contact Info) Description 02/24/2017 Ancillary Orders [facility] [address] [facility] [address] [place] [address] Laith Patel, [address] [place] [address] Inconclusive mammogram Social History Tobacco Use Types Packs/Day Years Used Date Smoking Tobacco: Every Day Cigarettes Alcohol Use Standard Drinks/Week Comments No 0 (1 standard drink = 0.6 oz pur e alcohol) Comments No Sex and Gender Information Value Date Recorded Sex Assigned at Not on file 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
--- OUTSIDE RECORDS SUMMARY | 2025-02-14 00:40 | XMS_ITS | Encounter Summary ---
Author Organization [facility] Address [address] [place] [address] Care Team Providers Care Veterinary Poultry Inspector Name Role Phone Non-Staff, Physician Primary Care Provider Unava ilable Reason for Referral * Outpatient Services (Routine) - Closed Specialty Diagnoses / Procedures Referred By Contac t Referred To Contact Radiology Diagnoses Screening mammogram, encounter for Procedures MAMMO SCREEN BILAT W OR WO CAD Laith Patel DO [address] [place] [phone] Phone: tel: fax: [facility] Mammography [place] [address] [facility] [address] [place] [address] Phone: tel: fax: Referral ID Status Reason Start Date Expiration Date V isits Requested Visits Authorized [id number] Closed [facility] View CTS to Schedule (SGF) 02/06/2017 03/09/2018 1 1 Encounter Details Date Type Department Care Team (Latest Contact Info) Description 02/06/2017 Ancillary Orders [facility] Centralized Scheduling [address] [facility] [address] [place] [address] Laith Patel DO [address] [facility] [address] [place] [phone] Screening mammogram, encounter for Social History Tobacco Use Types Packs/Day Years Used Date Smoking Tobacco: Every Day Cigarettes Alcohol Use Standard Drinks/Week Comments No 0 (1 standard drink = 0.6 oz pur e alcohol) Comments No Sex and Gender Information Value Date Recorded Sex Assigned at Not on file 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 There is a focal asymmetry [...] ultrasound may be obtained if clinically warranted. [id number] Procedure Note Antonio Meek MD - 02/24/2017 MAMMO SCREEN BILAT W OR WO CAD INDICATION FOR EXAMINATION: Screening mammogram, encounter for COMPARISONS: None available. BREAST COMPOSITION: Heterogeneously dense which may obscure small masses. FINDINGS: This digital mammogram was also analyzed by the Computer Aided Detection System (CAD), [employer], Version 8.3. There is a focal asymmetry [...] ultrasound may be obtained if clinically warranted. [id number] Laith Patel DO MAMMO ORDERABLES Final Re sult documented in this encounter Visit Diagnoses Diagnosis Screening mammogram, encounter for Screening mammogram, encounter for documented in this encounter Care Teams Veterinary Poultry Inspector Relationship Specialty Start Date End Date Non-Staff, Physician NO ADDRESS ON FILE PCP - General 02/22/17 documented as of this encounter
--- OUTSIDE RECORDS SUMMARY | 2025-02-14 00:40 | XMS_ITS | Encounter Summary ---
Author Organization [facility] Address [address] [place] [address] Care Team Providers Care Office Supervisor Name Role Phone Non-Staff, Physician Primary Care Provider Unava ilable Encounter Details Date Type Department Care Team (Latest Contact Info) Description 03/18/2003 Outpatient Historical [facility] [address] 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
--- NOTE | 2025-02-14 00:48 | CTR_ITS ---
PROCEDURE INFORMATION: Exam: CT Head Without Contrast Exam date and time: 02/14/2025 12:51 AM Age: 79 years old Clinical indication: Injury or trauma; Blunt trauma (contusions or hematomas); Altered mental status/memory loss; EMS arrival for fall. Patient non verbal. ETOH on board. C collar in place. ; Additional info: Fall, AMS TECHNIQUE: Imaging protocol: Computed tomography of the head without contrast. Radiation optimization: All CT scans at this facility use at least one of these dose optimization techniques: automated exposure control; mA and/or kV adjustment per patient size (includes targeted exams where dose is matched to clinical indication); or iterative reconstruction. COMPARISON: CT head thrombolytic [id number] 02/08/2025 2:50 PM RADIATION DOSE METRICS: Total DLP (mGy-cm): 996.14 FINDINGS: Brain: Lacunar foci in the bilateral basal ganglia, nonspecific although commonly chronic. Cerebral ventricles: [id number] involutional changes of the ventricles and sulci. Chronic small-vessel ischemic change. Paranasal sinuses: Mild maxillary sinus mucosal thickening. Mastoid air cells: Visualized mastoid air cells are well aerated. Bones: Unremarkable. No acute fracture. Soft tissues: Unremarkable. CT/CT head wo con* [id number] IMPRESSION: No definite acute intracranial abnormality.
--- NOTE | 2025-02-14 00:48 | CTR_ITS ---
PROCEDURE INFORMATION: Exam: CT Cervical Spine Without Contrast Exam date and time: 02/14/2025 12:53 AM Age: 79 years old Clinical indication: Injury or trauma; Blunt trauma; EMS arrival for fall. Patient non verbal. ETOH on board. C collar in place. ; Additional info: Fall, AMS TECHNIQUE: Imaging protocol: Computed tomography of the cervical spine without contrast. Radiation optimization: All CT scans at this facility use at least one of these dose optimization techniques: automated exposure control; mA and/or kV adjustment per patient size (includes targeted exams where dose is matched to clinical indication); or iterative reconstruction. COMPARISON: CT head wo con* [id number] 02/14/2025 12:51 AM RADIATION DOSE METRICS: Total DLP (mGy-cm): 225.27 FINDINGS: Bones: No acute fracture. Normal alignment. No significant disc bulge or herniation. No severe spinal canal stenosis. No significant neural foraminal narrowing. On the left, Mild neural foraminal narrowing of C5-C6 due to facet and endplate hypertrophic changes.. On the right, Mild neural foraminal narrowing at C5-C6 and C3-C4 due to facet and endplate hypertrophic changes. Lungs: Mild emphysematous change at lung apices. Soft tissues: Unremarkable. CT/CT cervical spin wo con* [id number] IMPRESSION: No definite acute fracture or hemorrhage.
[2025-02-14 01:03] VITALS: BP 139/71; PULSE 85; RESP 15; O2SAT 95
--- NOTE | 2025-02-14 01:03 | XRR_ITS ---
PROCEDURE INFORMATION: Exam: XR Chest Exam date and time: 02/14/2025 1:10 AM Age: 79 years old Clinical indication: Injury or trauma; Blunt trauma (contusions or hematomas); EMS arrival for fall. Patient non verbal. ETOH on board. TECHNIQUE: Imaging protocol: Radiologic exam of the chest. Views: 1 view. COMPARISON: CR (CHEST, ) 02/09/2025 9:43 AM FINDINGS: Lungs: Unremarkable. No consolidation. Pleural spaces: Unremarkable. No pleural effusion. No pneumothorax. Heart/Mediastinum: Unremarkable. No cardiomegaly. Bones/joints: Query old fractures of the left upper ribs. XR/XR chest 1V portable [id number] IMPRESSION: Query old fractures of the left upper ribs. No pneumothorax or melanie pulmonary contusion.
--- NOTE | 2025-02-14 01:03 | XRR_ITS ---
PROCEDURE INFORMATION: Exam: XR Pelvis Exam date and time: 02/14/2025 1:10 AM Age: 79 years old Clinical indication: Injury or trauma; Blunt trauma (contusions or hematomas); Bilateral; Pelvic region; EMS arrival for fall. Patient non verbal. ETOH on board. TECHNIQUE: Imaging protocol: Radiologic exam of the pelvis. Views: 1 or 2 view. COMPARISON: CR XR hip LT 2-3V wo/w pel* [id number] 11/23/2024 3:40 PM FINDINGS: Bones/joints: Unremarkable. No acute fracture. Soft tissues: Unremarkable. XR/XR pelvis 1-2V* [id number] IMPRESSION: No acute findings.
[2025-02-14 01:09] LABS: Hematocrit 29.6 % (36-47); Hemoglobin 9.60 g/dL (11.27-16.99); Mean Corpuscular HGB Conc 32.4 g/dL (30-55); Mean Corpuscular Hemoglobin 32.8 pg (27-33); Mean Corpuscular Volume 101.0 fl (85-98); Nucleated Red Blood Cells % 0 %; Platelet Count 394 10^3/cmm (157-399); Red Blood Count 2.93 10^6/uL (3.85-5.65); White Blood Count 7.00 10^3/uL (3.29-11.43)
[2025-02-14 01:16] LABS: INR 0.85 (0.8-1.2); Prothrombin Time 12.30 SECONDS (12.1-14.9)
[2025-02-14 01:25] LABS: Alanine Aminotransferase 14 U/L (0-33); Albumin Level 4.3 g/dL (3.5-5.2); Alcohol Level 115 mg/dL (0-10); Alkaline Phosphatase 141 U/L (35-105); Anion Gap 20.7 (5-19); Aspartate Amino Transferase 24 U/L (0-32); Blood Urea Nitrogen 12 mg/dL (8-23); Calcium 8.5 mg/dL (8.5-10.5); Carbon Dioxide 20 mmol/L (22-29); Chloride 97 mmol/L (98-107); Creatinine Clr Calc Pharmacy 16.7372; Globulin 3.3 g/dL (1.3-4.6); Glucose 85 mg/dL (65-115); Osmolality Calculated 277 mOsm/kg (285-295); Potassium 3.7 mmol/L (3.5-5.1); Sodium 134 mmol/L (136-145); Total Protein 7.6 g/dL (6.6-8.7)
[2025-02-14 01:31] LABS: Partial Thromboplastin Time 29.1 SECONDS (23.9-36.7)
[2025-02-14 02:56] VITALS: BP 136/64; PULSE 84; RESP 16; O2SAT 97
--- NOTE | 2025-02-14 03:27 | W.ED.FALL ---
HPI - Fall General: Chief Complaint: Fall Stated Complaint: Fall,ETOH, AMS Time Seen by Provider: 02/14/25 01:02 History of Present Illness: Patient is a 79-year-old female from home by ambulance seen for fall. She is accompanied by her brother and daughter who lives with her and states that she has had multiple falls like this in the past, usually occurring when she stands up from seated position. Tonight is the same, she stood up from the chair to walk to her bedroom and shortly thereafter fell to the ground striking her head. Brother states that over the last several months she has gotten more and more lightheaded with standing up and that as recently as 2 months ago she could stand up and walk without any difficulty. Now, she has to stand up slowly and usually waits to walk for roughly 30 seconds to avoid lightheadedness. She denies antecedent chest pain, shortness of breath, visual disturbance, dysuria, frequency, diarrhea, constipation, abdominal pain, and has no acute complaints. There was some bleeding coming from her right ear. Related Data Home Medications ?Medication ?Instructions ?Recorded ?Confirmed amitriptyline 25 mg tablet 25 mg PO BEDTIME 09/09/19 02/08/25 nitroglycerin 0.4 mg sublingual 0.4 mg sublingual PRN PRN Chest 09/09/19 02/08/25 tablet Pain primidone 50 mg tablet 50 mg PO BID 07/16/20 02/08/25 simvastatin 20 mg tablet 20 mg PO DAILY 01/04/21 02/08/25 tizanidine 4 mg tablet 4 mg PO Q6H PRN Spasms 07/30/21 02/08/25 potassium chloride 10 mEq 10 meq PO DAILY 07/07/23 02/08/25 tablet,extended release cilostazol 50 mg tablet 50 mg PO BID 06/20/24 02/08/25 furosemide 20 mg tablet See Rx Instructions .Route .COMPLEX 06/20/24 02/08/25 amlodipine 5 mg tablet 5 mg PO DAILY 11/23/24 02/08/25 naproxen 500 mg tablet 500 mg PO BID 11/23/24 02/08/25 Previous Rx's ?Medication ?Instructions ?Recorded famotidine 20 mg tablet 20 mg PO DAILY #60 tabs 02/10/25 levofloxacin 750 mg tablet 750 mg PO DAILY 7 days #7 tabs 02/10/25 magnesium hydroxide 400 mg/5 mL 30 ml PO DAILY PRN Constipation 02/10/25 oral suspension (Milk of Magnesia) (see protocol) 60 days #3,000 mL mecobalamin (vitamin B12) 1,000 1,000 mcg PO DAILY 90 days #90 tabs 02/10/25 mcg chewable tablet multivitamin (Daily Multi-Vitamin 1 tab PO DAILY #60 tabs 02/10/25 tablet) Allergies Allergy/AdvReac Type Severity Reaction Status Date / Time iodine Allergy Unknown Verified 02/08/25 14:39 Penicillins Allergy ALGY-Anaphy Verified 02/08/25 14:39 laxis [facility] ED [facility]: Medical History (Updated 02/14/25 @ 03:26 by Erlin Hood MD) 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 Hypotension History of echocardiogram 09/10/2019 EF 69%, I/IV diastolic dysfunction History of Holter monitoring 05/2020 baseline rhythm sinus, 74 bpm, no arrhythmias History of stress test 08/2020 normal myocardial perfusion imaging, no ekg changes History of hypertension in past Mixed hyperlipidemia Digoxin toxicity Bacteremia due to Escherichia coli (~08/2019) Acute upper gastrointestinal bleeding (~06/2021) required transfusion 3 units pRBCs Chronic kidney disease, unspecified CKD stage Postural orthostatic tachycardia syndrome COPD (chronic obstructive pulmonary disease) Anemia Surgical History History of cardiac catheterization 2020 - moderate mid circumflex and LAD lesions though not significant by FFR Status post laparoscopic cholecystectomy (04/14/21) H/O ventral hernia repair Status post right inguinal hernia repair H/O esophagogastroduodenoscopy (07/30/21) Duodenitis Status post colonoscopy (07/30/21) Diverticulosis History of appendectomy History of 3 sections Family History Father Stroke Denies family history of Diabetes CAD (coronary artery disease) Family history of premature coronary artery disease Social History Smoking and tobacco/nicotine status: current every day tobacco/nicotine user (1/2 pack a day) cigarettes Packs smoked per day: 1.5 Years cigarettes smoked: 57 Quit status (tobacco/nicotine): not considering quitting Alcohol intake: never Substance/Drug Use: never Lives independently: Yes Household members: spouse Marital status: Current occupational status: retired Do you think of yourself as: Straight/Heterosexual Current gender identity: Female Physical Exam Const: COMMON NORMALS: no acute distress, patient oriented x3 and alert HENMT: COMMON NORMALS: normocephalic HEAD & SCALP: normocephalic OTHER: Superficial laceration of the superior aspect of the right ear with no active bleeding. Laceration is not amenable to primary repair as it is very superficial and edges do not approximate well such that it is best left to heal by secondary intention Eye: COMMON NORMALS: Equal, round and reactive pupils present, EOMs intact bilaterally and no scleral icterus PUPIL: Yes Equal, round and reactive pupils present Resp: COMMON NORMALS: normal respiratory effort and No retractions Cardio: COMMON NORMALS: regular rate, regular rhythm and No murmurs present (Cardio) RATE: regular rate RHYTHM: regular rhythm GI: COMMON NORMALS: Normal to inspection, nondistended, normoactive bowel sounds present, Soft to palpation and non-tender PALPATION: Yes Soft to palpation Neuro: COMMON NORMALS: patient oriented x3 SENSORIUM/ORIENTATION: Yes alert Skin: COMMON NORMALS: no rashes or lesions noted GENERAL SKIN EXAM: no rashes or lesions noted OTHER: Small skin tear of the right forearm just distal to the olecranon with no active bleeding, not amenable to primary repair. Course Vital Signs: Vital signs: Vital Signs Temperature 97.4 F L 02/14/25 00:34 Pulse Rate 84 02/14/25 02:56 Respiratory Rate 16 02/14/25 02:56 Blood Pressure 136/64 02/14/25 02:56 Pulse Oximetry 97 02/14/25 02:56 Oxygen Delivery Me thod Room Air 02/14/25 02:56 MDM - Fall Medical Decision Making In summary, patient is a 79-year-old female from home seen for what appears to be orthostasis and postural syncope. EKG is reassuring and labs show no acute abnormality. We discussed that she is not taking any antihypertensive medications and she may benefit from gently increasing her fluid intake and being mindful of orthostasis when she stands up and that she should take extra time before ambulating to make sure she is not symptomatic and would use a walker. She shows good understanding and agrees to the plan. She will be discharged in stable condition. Right ear laceration was not repaired as the there would be no benefit over allowing it to heal by secondary intention Lab Data 02/14/25 00:20 02/14/25 00:20 Radiology Impressions Cervical Spine CT 02/14/25 00:48 IMPRESSION: No definite acute fracture or hemorrhage. Head CT 02/14/25 00:48 IMPRESSION: No definite acute intracranial abnormality. Chest X-Ray 02/14/25 01:03 IMPRESSION: Query old fractures of the left upper ribs. No pneumothorax or melanie pulmonary contusion. Pelvis X-Ray 02/14/25 01:03 IMPRESSION: No acute findings. Laboratory Results WBC 7.00 10^3/uL (3.29-11.43) 02/14/25 00:20 RBC 2.93 10^6/uL (3.85-5.65) L 02/14/25 00:20 Hgb 9.60 g/dL (11.27-16.99) L 02/14/25 00:20 Hct 29.6 % (36-47) L 02/14/25 00:20 MCV 101.0 fl (85-98) H 02/14/25 00:20 MCH 32.8 pg (27-33) 02/14/25 00:20 MCHC 32.4 g/dL (30-55) 02/14/25 00:20 RDW 12.7 % (12.1-15.1) 02/14/25 00:20 Plt Count 394 10^3/cmm (157-399) 02/14/25 00:20 MPV 9.8 fL (7.4-10.4) 02/14/25 00:20 Neut % (Auto) 58.2 % 02/14/25 00:20 Lymph % (Auto) 22.0 % 02/14/25 00:20 [place] % (Auto) 7.1 % 02/14/25 00:20 Eos % (Auto) 11.4 % 02/14/25 00:20 Baso % (Auto) 0.7 % 02/14/25 00:20 Neut # (Auto) 4.07 10^3/uL (1.8-7.7) 02/14/25 00:20 Lymph # (Auto) 1.5 10^3/uL (0.8-4.8) 02/14/25 00:20 [place] # (Auto) 0.5 10^3/uL (0.2-0.9) 02/14/25 00:20 Eos # (Auto) 0.8 10^3/uL (0.0-0.8) 02/14/25 00:20 Baso # (Auto) 0.1 10^3/uL (0.0-0.1) 02/14/25 00:20 Nucleated RBC % (auto) 0 % 02/14/25 00:20 Nucleated RBCs # 0.0 /100WBC 02/14/25 00:20 PT 12.30 SECONDS (12.1-14.9) 02/14/25 00:20 INR 0.85 (0.8-1.2) 02/14/25 00:20 APTT 29.1 SECONDS (23.9-36.7) 02/14/25 00:20 Sodium 134 mmol/L (136-145) L 02/14/25 00:20 Potassium 3.7 mmol/L (3.5-5.1) 02/14/25 00:20 Chloride 97 mmol/L (98-107) L 02/14/25 00:20 Carbon Dioxide 20 mmol/L (22-29) L 02/14/25 00:20 Anion Gap 20.7 (5-19) H 02/14/25 00:20 BUN 12 mg/dL (8-23) 02/14/25 00:20 Creatinine 2.1 mg/dL (0.5-0.9) H 02/14/25 00:20 GFR Calculation Not Reportable 02/14/25 00:20 Glucose 85 mg/dL (65-115) 02/14/25 00:20 Calculated Osmolality 277 mOsm/kg (285-295) L 02/14/25 00:20 Calcium 8.5 mg/dL (8.5-10.5) 02/14/25 00:20 Total Bilirubin 0.2 mg/dL (0.15-1.2) 02/14/25 00:20 AST 24 U/L (0-32) 02/14/25 00:20 ALT 14 U/L (0-33) 02/14/25 00:20 Alkaline Phosphatase 141 U/L (35-105) H 02/14/25 00:20 Total Protein 7.6 g/dL (6.6-8.7) 02/14/25 00:20 Albumin 4.3 g/dL (3.5-5.2) 02/14/25 00:20 Globulin 3.3 g/dL (1.3-4.6) 02/14/25 00:20 Ethyl Alcohol 115 mg/dL (0-10) H 02/14/25 00:20 All radiology interpretation(s) finalized by discharge EKG Data EKG 1: Interpretation: Time?338?sinus rhythm, rate of 86, no ST segment elevation or depression, no T wave inversions, QTc = 390. Discharge Plan Discharge Patient Disposition: Home Clinical Impression: Orthostasis, Postural syncope Condition: Stable Prescriptions: No Action simvastatin 20 mg tablet 20 mg PO DAILY primidone 50 mg tablet 50 mg PO BID amitriptyline 25 mg tablet 25 mg PO BEDTIME nitroglycerin 0.4 mg tablet, sublingual 0.4 mg sublingual PRN PRN (Reason: Chest Pain) tizanidine 4 mg tablet 4 mg PO Q6H PRN (Reason: Spasms) potassium chloride 10 mEq tablet extended release 10 meq PO DAILY cilostazol 50 mg tablet 50 mg PO BID furosemide 20 mg tablet See Rx Instructions .ROUTE .COMPLEX Rx Instructions: TAKE 2 TABLETS BY MOUTH IN THE MORNING THEN TAKE 1 TABLET BY MOUTH IN THE EVENING. amlodipine 5 mg tablet 5 mg PO DAILY naproxen 500 mg tablet 500 mg PO BID magnesium hydroxide [Milk of Magnesia] 400 mg/5 mL Suspension 30 ml PO DAILY PRN (Reason: Constipation (see protocol)) 60 Days Qty: 3000 0RF mecobalamin (vitamin B12) 1,000 mcg tablet,chewable 1,000 mcg PO DAILY 90 Days Qty: 90 0RF multivitamin [Daily Multi-Vitamin] Tablet 1 tab PO DAILY Qty: 60 0RF levofloxacin 750 mg tablet 750 mg PO DAILY 7 Days Qty: 7 0RF famotidine 20 mg tablet 20 mg PO DAILY Qty: 60 0RF Discharge Orders: Discharge ED (Routine); Ordered 02/14/25 Ordered By: Erlin Hood Referrals: Laith Patel DO [Primary Care Provider, Family Practice] Patient Instructions: Syncope (ED), Patient Portal & Mouna Instructions Activity Restrictions/Additional Instructions: Please remember to be very careful when you stand up from a seated or lying down position. Doing so causes a transient decrease in blood flow to the brain which can cause you to feel very dizzy and even pass out like you did tonight. To avoid this, increase the amount of fluid you drink a little bit and be very careful when you stand up. Print Language: Yakut Coding Level of Care Code ED [employer]dp Displays Analyst for Justus Greenwood
--- NOTE | 2025-02-14 03:34 | ECG_ITS ---
[facility] 2025-02[facility]14 Pat Name: Maile López Department: Room: Gender: Female Model Technician: : 1945 Requested By: Erlin Molina Order Number: [id number] Summer MD: Juan Diego Cueto M.D. Measurements Intervals [place] Rate: 86 P: 22 OR: 143 QRS: -9 QRSD: 70 T: 73 QT: 346 QTc: 416 Interpretive Statements SINUS RHYTHM LOW QRS VOLTAGE IN PRECORDIAL LEADS [QRS DEFLECTION < 1.0 mV IN CHEST LEADS] INFERIOR MYOCARDIAL INFARCTION , PROBABLY OLD [40+ ms Q WAVE AND/OR ST/T ABNORMALITY IN II/aVF] Compared to ECG 02/08/2025 14:55:00 Low QRS voltage now present Myocardial infarct finding now present T-wave abnormality no longer present Electronically Signed On 02-14-2025 22:39:56 CDT by Juan Diego Cueto M.D. [email or web address]
[2025-02-14] MEDS: oxyCODONE-APAP 5-325 mg Tablet 1 TAB PO (03:45)
[2025-02-14 04:08] VITALS: BP 144/79; PULSE 107; RESP 18; O2SAT 95
== END 2025-02-14 04:09 | disposition home or self-care (01) ==
PROVIDERS: Emergency Provider Student in an Organized Health Care Education/Training Program; PCP Family Medicine
DX: I95.1 Orthostatic hypotension (principal); F17.210 Nicotine dependence, cigarettes, uncomplicated; J44.9 Chronic obstructive pulmonary disease, unspecified; I25.10 Atherosclerotic heart disease of native coronary artery without angina pectoris; I12.9 Hypertensive chronic kidney disease with stage 1 through stage 4 chronic kidney disease, or unspecified chronic kidney disease; N18.9 Chronic kidney disease, unspecified; E78.2 Mixed hyperlipidemia
CPT/HCPCS: 70450; 71045; 72125; 72170; 80053; 80307; 85025; 85610; 85730; 93005; 99285; J9999